=== PATIENT | male | born 1935 | race Caucasian/White ===

== ENCOUNTER 2016-05-29 09:03 | Emergency (ER) | payer MEDICARE, BC, OTHER ==
--- NOTE | 2016-05-29 09:32 | ED ---
General Adult HPI - General Chief complaint: Shortness of Breath Stated complaint: SOB Time Seen by Provider: 05/29/16 09:23 Source: patient, EMS, RN notes reviewed Mode of arrival: EMS Limitations: no limitations - History of Present Illness Initial comments: Patient 81-year-old male significant past medical history for abdominal aneurysms, DVT, PE, hypertension, hyperlipidemia, diabetes, COPD, who presents emergency room today by EMS with a chief complaint of increased left lower flank pain over the last 2 days. Patient does admit to feeling some discomfort yesterday that started increased later in the night. He states he went to bed. He states had similar symptoms in the past usually when he wakes up feels better. States increased pain this morning. Admits to pain located in the left flank coming around to the left lower quadrant. Patient does also admit to feeling short of breath. States he uses oxygen at night. Patient admits to feeling nauseated. He denies any other complaints or symptoms. Patient denies any recent fever, chills, chest pain, numbness or tingling, dysuria or hematuria , constipation or diarrhea, headaches or visual changes, or any other complaints. - Related Data Home Medications Medication Instructions Recorded Confirmed Budesonide [Pulmicort] 0.5 mg INHALATION BID 02/24/14 03/10/14 Insulin Glargine [Lantus] 16 unit SQ HS 02/24/14 03/10/14 Ipratropium Nebulized [Atrovent 0.5 mg INHALATION Q6HR 02/24/14 03/10/14 Nebulized] Latanoprost Ophth [Xalatan 0.005%] 1 drops BOTH EYES HS 02/24/14 03/10/14 [place]-3 Fatty Acids/Fish Oil [Fish 1 each PO DAILY 02/24/14 03/10/14 Oil 1,000 mg Softgel] Tamsulosin [Flomax] 0.4 mg PO DAILY 02/24/14 03/10/14 ALPRAZolam [Xanax] 0.25 mg PO DAILY PRN 03/10/14 03/10/14 Nitroglycerin Sl Tabs [Nitrostat] 0.4 mg SUBLINGUAL Q5M PRN 03/10/14 03/10/14 SILVER sulfADIAZINE CREAM 1 applic TOPICAL BID 03/10/14 03/10/14 [Silvadene Cream] Previous Rx's Medication Instructions Recorded Acetaminophen Tab [Tylenol] 650 mg PO Q6HR PRN #30 tab 03/09/14 Acetaminophen-Codeine 300-30mg 1 each PO Q6HR PRN #120 tab 03/09/14 [Tylenol w/codeine #3] Allopurinol [Zyloprim] 100 mg PO DAILY #30 tab 03/09/14 Aspirin 81 mg PO DAILY #30 chew 03/09/14 Furosemide [Lasix] 40 mg PO 0900,1600 #60 tab 03/09/14 Glimepiride [Amaryl] 2 mg PO DAILY #30 tab 03/09/14 Levofloxacin [Levaquin] 500 mg PO DAILY #7 tab 03/09/14 Metoprolol Tartrate [Lopressor] 50 mg PO BID #30 tab 03/09/14 Potassium Chloride Oral Liquid 20 meq PO DAILY #30 cup 03/09/14 SILVER sulfADIAZINE CREAM 1 applic TOPICAL DAILY #30 gram 03/09/14 [Silvadene Cream] Spironolactone-Hctz 25-25Mg 1 each PO 0900,1600 #30 tab 03/09/14 [Aldactazide 25-25 MG] Allergies Allergy/AdvReac Type Severity Reaction Status Date / Time No Known Allergies Allergy Verified 05/29/16 12:55 Review of Systems ROS Statement: Those systems with pertinent positive or pertinent negative responses have been documented in the HPI. ROS Other: All systems not noted in ROS Statement are negative. Past Medical History Past Medical History: COPD, Diabetes Mellitus, Deep Vein Thrombosis (DVT), Hearing Disorder / Deafness, Hyperlipidemia, Hypertension, Pulmonary Embolus (PE ) Additional Past Medical History / Comment(s): CHF, Abdominal Aneurysm, hard of hearing, empysema History of Any Multi-Drug Resistant Organisms: None Reported Past Surgical History: Appendectomy, Hernia Repair, Tonsillectomy Additional Past Surgical History / Comment(s): cataract, hydrocele, 9 stents in legs, 2 aortic stents Past Anesthesia/Blood Transfusion Reactions: No Reported Reaction Past Psychological History: No Psychological Hx Reported Smoking Status: Former smoker Past Alcohol Use History: None Reported Past Drug Use History: None Reported - Past Family History Mother Family Medical History: Cancer Additional Family Medical History / Comment(s): open heart surgery, CA ovarian and liver, lyme disease General Exam - General Exam Comments Initial Comments: General: The patient is awake and alert, in no distress, and does not appear acutely ill. Eye: Pupils are equal, round and reactive to light, extra-ocular movements are intact. No nystagmus. There is normal conjunctiva bilaterally. No signs of icterus. Ears, nose, mouth and throat: There are moist mucous membranes and no oral lesions. Neck: The neck is supple, there is no tenderness or JVD. Cardiovascular: There is a regular rate and rhythm. No murmur, rub or gallop is appreciated. Respiratory: Lungs are clear to auscultation, respirations are non-labored, breath sounds are equal. No wheezes, stridor, rales, or rhonchi. Gastrointestinal: Abdomen appears distended. Normal bowel sounds. No pulsatile mass. Patient is tender palpation left lower quadrant. No rebound tenderness. No guarding. Musculoskeletal: Normal ROM, no tenderness. Strength 5/5. Sensation intact. Pulses equal bilaterally 2+. Neurological: A&O x 3. CN II-XII intact, There are no obvious motor or sensory deficits. Coordination appears grossly intact. Speech is normal. Skin: Skin is warm and dry and no rashes or lesions are noted. Psychiatric: Cooperative, appropriate mood & affect, normal judgment. Limitations: no limitations Course Vital Signs 05/29/16 05/29/16 05/29/16 09:10 10:16 11:58 Temperature 102.2 F H 97.7 F Pulse Rate 77 74 88 Respiratory 22 22 22 Rate Blood Pressure 124/58 120/60 117/58 O2 Sat by Pulse 97 100 96 Oximetry Medical Decision Making - Medical Decision Making Case discussed in detail with attending physician Dr. Chacko. Patient reexamined at this time shows no signs of distress. Patient hemodynamically stable. Patient still expresses some discomfort left lower quadrant. Currently rates as 6/10. Patient's labs been reviewed. Hemoglobin stable 0.6. Patient's fever improved after Tylenol given here in the emergency room. X-rays reviewed along with CAT scan. Patient's CT shows endovascular leak into the patient's previous abdominal aortic aneurysm. The aneurysm increased in size from 9.7 cm AP from a previous measurement 6.57 years on 05/30/2012. His results were discussed with the patient. He does admit that he was aware of a week. Patient is experiencing abdominal pain in this area. Was discussed with attending physician and also with [facility] where patient did have previous surgery and stent. Patient will be transferred via EMS for further evaluation at [facility]. Accepting physician is Dr. Amin. - Lab Data Result diagrams: 05/29/16 09:32 05/29/16 09:32 Lab Results 05/29/16 05/29/16 05/29/16 Range/Units 09:32 09:32 09:32 WBC 6.9 (3.8-10.6) k/uL RBC 4.09 L (4.30-5.90) m/uL Hgb 12.6 L (13.0-17.5) gm/dL Hct 36.7 L (39.0-53.0) % MCV 89.7 (80.0-100.0) fL MCH 30.8 (25.0-35.0) pg MCHC 34.4 (31.0-37.0) g/dL RDW 16.3 H (11.5-15.5) % Plt Count 143 L (150-450) k/uL Neutrophils % 79 % Lymphocytes % 10 % Monocytes % 7 % Eosinophils % 2 % Basophils % 1 % Neutrophils # 5.4 (1.3-7.7) k/uL Lymphocytes # 0.7 L (1.0-4.8) k/uL Monocytes # 0.5 (0-1.0) k/uL Eosinophils # 0.1 (0-0.7) k/uL Basophils # 0.0 (0-0.2) k/uL Anisocytosis Slight PT (9.0-12.0) sec INR (<1.1) APTT (22.0-30.0) sec Sodium 138 (137-145) mmol/L Potassium 4.0 (3.5-5.1) mmol/L Chloride 95 L (98-107) mmol/L Carbon Dioxide 33 H (22-30) mmol/L Anion Gap 10 mmol/L BUN 17 (9-20) mg/dL Creatinine 1.05 (0.66-1.25) mg/dL Est GFR (MDRD) Af Amer >60 (>60 ml/min/1.73 sqM) Est GFR (MDRD) Non-Af >60 (>60 ml/min/1.73 sqM) Glucose 106 H (74-99) mg/dL Plasma Lactic Acid Darrick (0.7-2.0) mmol/L Calcium 9.2 (8.4-10.2) mg/dL Total Bilirubin 1.0 (0.2-1.3) mg/dL AST 20 (17-59) U/L ALT 31 (21-72) U/L Alkaline Phosphatase 74 (38-126) U/L Total Creatine Kinase 25 L (55-170) U/L CK-MB (CK-2) <0.2 (0.0-2.4) ng/mL CK-MB (CK-2) Rel Index Troponin I <0.012 (0.000-0.034) ng/mL NT-Pro-B Natriuret Pep pg/mL Total Protein 6.5 (6.3-8.2) g/dL Albumin 3.8 (3.5-5.0) g/dL Lipase 38 (23-300) U/L Urine Color Urine Appearance (Clear) Urine pH (5.0-8.0) Ur Specific [place] (1.001-1.035) Urine Protein (Negative) Urine Glucose (UA) (Negative) Urine Ketones (Negative) Urine Blood (Negative) Urine Nitrate (Negative) Urine Bilirubin (Negative) Urine Urobilinogen (<2.0) mg/dL Ur Leukocyte Esterase (Negative) Urine RBC (0-5) /hpf Urine WBC (0-5) /hpf Hyaline Casts (0-2) /lpf Urine Mucus (None) /hpf 05/29/16 05/29/16 05/29/16 Range/Units 09:32 09:32 09:51 WBC (3.8-10.6) k/uL RBC (4.30-5.90) m/uL Hgb (13.0-17.5) gm/dL Hct (39.0-53.0) % MCV (80.0-100.0) fL MCH (25.0-35.0) pg MCHC (31.0-37.0) g/dL RDW (11.5-15.5) % Plt Count (150-450) k/uL Neutrophils % % Lymphocytes % % Monocytes % % Eosinophils % % Basophils % % Neutrophils # (1.3-7.7) k/uL Lymphocytes # (1.0-4.8) k/uL Monocytes # (0-1.0) k/uL Eosinophils # (0-0.7) k/uL Basophils # (0-0.2) k/uL Anisocytosis PT 11.1 (9.0-12.0) sec INR 1.1 (<1.1) APTT 26.2 (22.0-30.0) sec Sodium (137-145) mmol/L Potassium (3.5-5.1) mmol/L Chloride (98-107) mmol/L Carbon Dioxide (22-30) mmol/L Anion Gap mmol/L BUN (9-20) mg/dL Creatinine (0.66-1.25) mg/dL Est GFR (MDRD) Af Amer (>60 ml/min/1.73 sqM) Est GFR (MDRD) Non-Af (>60 ml/min/1.73 sqM) Glucose (74-99) mg/dL Plasma Lactic Acid Darrick 1.2 (0.7-2.0) mmol/L Calcium (8.4-10.2) mg/dL Total Bilirubin (0.2-1.3) mg/dL AST (17-59) U/L ALT (21-72) U/L Alkaline Phosphatase (38-126) U/L Total Creatine Kinase (55-170) U/L CK-MB (CK-2) (0.0-2.4) ng/mL CK-MB (CK-2) Rel Index Troponin I (0.000-0.034) ng/mL NT-Pro-B Natriuret Pep 447 pg/mL Total Protein (6.3-8.2) g/dL Albumin (3.5-5.0) g/dL Lipase (23-300) U/L Urine Color Urine Appearance (Clear) Urine pH (5.0-8.0) Ur Specific [place] (1.001-1.035) Urine Protein (Negative) Urine Glucose (UA) (Negative) Urine Ketones (Negative) Urine Blood (Negative) Urine Nitrate (Negative) Urine Bilirubin (Negative) Urine Urobilinogen (<2.0) mg/dL Ur Leukocyte Esterase (Negative) Urine RBC (0-5) /hpf Urine WBC (0-5) /hpf Hyaline Casts (0-2) /lpf Urine Mucus (None) /hpf 05/29/16 Range/Units 11:55 WBC (3.8-10.6) k/uL RBC (4.30-5.90) m/uL Hgb (13.0-17.5) gm/dL Hct (39.0-53.0) % MCV (80.0-100.0) fL MCH (25.0-35.0) pg MCHC (31.0-37.0) g/dL RDW (11.5-15.5) % Plt Count (150-450) k/uL Neutrophils % % Lymphocytes % % Monocytes % % Eosinophils % % Basophils % % Neutrophils # (1.3-7.7) k/uL Lymphocytes # (1.0-4.8) k/uL Monocytes # (0-1.0) k/uL Eosinophils # (0-0.7) k/uL Basophils # (0-0.2) k/uL Anisocytosis PT (9.0-12.0) sec INR (<1.1) APTT (22.0-30.0) sec Sodium (137-145) mmol/L Potassium (3.5-5.1) mmol/L Chloride (98-107) mmol/L Carbon Dioxide (22-30) mmol/L Anion Gap mmol/L BUN (9-20) mg/dL Creatinine (0.66-1.25) mg/dL Est GFR (MDRD) Af Amer (>60 ml/min/1.73 sqM) Est GFR (MDRD) Non-Af (>60 ml/min/1.73 sqM) Glucose (74-99) mg/dL Plasma Lactic Acid Darrick (0.7-2.0) mmol/L Calcium (8.4-10.2) mg/dL Total Bilirubin (0.2-1.3) mg/dL AST (17-59) U/L ALT (21-72) U/L Alkaline Phosphatase (38-126) U/L Total Creatine Kinase (55-170) U/L CK-MB (CK-2) (0.0-2.4) ng/mL CK-MB (CK-2) Rel Index Troponin I (0.000-0.034) ng/mL NT-Pro-B Natriuret Pep pg/mL Total Protein (6.3-8.2) g/dL Albumin (3.5-5.0) g/dL Lipase (23-300) U/L Urine Color Yellow Urine Appearance Clear (Clear) Urine pH 7.0 (5.0-8.0) Ur Specific [place] 1.047 H (1.001-1.035) Urine Protein Negative (Negative) Urine Glucose (UA) Negative (Negative) Urine Ketones Negative (Negative) Urine Blood Negative (Negative) Urine Nitrate Negative (Negative) Urine Bilirubin Negative (Negative) Urine Urobilinogen <2.0 (<2.0) mg/dL Ur Leukocyte Esterase Negative (Negative) Urine RBC 2 (0-5) /hpf Urine WBC <1 (0-5) /hpf Hyaline Casts 1 (0-2) /lpf Urine Mucus Rare H (None) /hpf Disposition Clinical Impression: Leaking abdominal aortic aneurysm, Fever Disposition: OTHER INSTITUTION NOT DEFINED Condition: Stable Time of Disposition: 13:01 (Transfer via EMS to [facility]) - Out of Hospital Transfer - Req. Specs Out of Hospital Transfer - Requested Specifics: Other Emergency Center ([facility])
[2016-05-29 09:48] LABS: Anisocytosis Slight; Basophils % (A) 1 %; CH 30.2; CHCM 33.8; Eosinophils # (A) 0.1 k/uL (0-0.7); Eosinophils % (A) 2 %; HCT 36.7 % (39.0-53.0); HDW 3.05; HGB 12.6 gm/dL (13.0-17.5); Luc # (Auto) 0.19; Luc % (Auto) 3; Lymphocytes # (A) 0.7 k/uL (1.0-4.8); Lymphocytes % (A) 10 %; MCH 30.8 pg (25.0-35.0); MCHC 34.4 g/dL (31.0-37.0); MCV 89.7 fL (80.0-100.0); Mean Platelet Volume 7.9; Monocytes # (A) 0.5 k/uL (0-1.0); Monocytes % (A) 7 %; Neutrophils # (A) 5.4 k/uL (1.3-7.7); Neutrophils % (A) 79 %; RBC 4.09 m/uL (4.30-5.90); RDW 16.3 % (11.5-15.5); WBC 6.9 k/uL (3.8-10.6); WBC (Perox) 6.96
[2016-05-29 09:56] LABS: ALT 31 U/L (21-72); AST 20 U/L (17-59); Alkaline Phosphatase 74 U/L (38-126); Anion Gap 10 mmol/L; Blood Urea Nitrogen 17 mg/dL (9-20); Calcium 9.2 mg/dL (8.4-10.2); Carbon Dioxide 33 mmol/L (22-30); Chloride 95 mmol/L (98-107); Glucose 106 mg/dL (74-99); Non-African American GFR(MDRD) >60 (>60 ml/min/1.73 sqM); Sodium 138 mmol/L (137-145); Total Protein 6.5 g/dL (6.3-8.2)
[2016-05-29] MEDS: SODIUM CHLORIDE 0.9% 1,000 ML IV STA (09:57)
[2016-05-29] MEDS: ACETAMINOPHEN IV (For NPO) 1,000 MG in SALINE 100 100ML.BAG IVPB STA (09:57)
[2016-05-29 09:59] LABS: INR 1.1 (<1.1); Partial Thromboplastin Time 26.2 sec (22.0-30.0); Prothrombin Time 11.1 sec (9.0-12.0)
[2016-05-29 10:08] LABS: Creatine Kinase 25 U/L (55-170)
--- NOTE | 2016-05-29 10:21 | XR ---
EXAMINATION TYPE: XR chest 2V DATE OF EXAM: 05/29/2016 10:14 AM COMPARISON: Prior chest x-ray 10 March 2014 HISTORY: Shortness of breath, pain in abdomen TECHNIQUE: Frontal and lateral views of the chest are obtained. FINDINGS: There is no there are overlying cardiac leads. Pleural effusion, or pneumothorax seen. Th e cardiac silhouette size is stable. There are prominent lung volumes. Patchy basilar density persis ts. The osseous structures are intact. IMPRESSION: Suspect basilar atelectasis or scarring. There is underlying COPD. Follow-up as indicate d.
[2016-05-29 10:22] LABS: Creatine Kinase MB <0.2 ng/mL (0.0-2.4); Troponin I <0.012 ng/mL (0.000-0.034)
--- NOTE | 2016-05-29 10:25 | XR ---
Abdomen HISTORY: Left-sided abdomen pain Frontal view of the abdomen on 2 images, no comparisons Patient shows aortic stent graft change with embolization of the internal iliac artery on the left. S urgical clips are present in the groins. Heart is thought to be enlarged. Minimal patchy basilar dens ity may reflect atelectasis rather than airspace disease. Surgical clips present in the right upper q uadrant. No evident pneumoperitoneum or bowel obstruction. Suspect scoliosis. IMPRESSION: Postop changes. Cardiomegaly. Probable basilar atelectasis or scarring, correlate to excl ude pneumonia.
[2016-05-29] MEDS: HYDROmorphone 1 MG/ML 1 ML SYRINGE IVP STA (12:03)
[2016-05-29] MEDS: RX INFO: IV CONTRAST WAS GIVEN 1 EACH MISC MISCELLANE PRN (12:03)
--- NOTE | 2016-05-29 12:09 | CT ---
EXAMINATION TYPE: CT ChestAbdPelvis w con DATE OF EXAM: 05/29/2016 11:39 AM INDICATION: LLQ pain with SOB COMPARISON: NONE CT DLP: 4678.6 mGycm CONTRAST: Performed without Oral Contrast and with IV Contrast, patient injected with 100 mL of Omnipaque 300. TECHNIQUE: Axial images at 5 mm thick sections. Reconstructed images in the coronal plane. Delayed images through the kidneys. FINDINGS: CT CHEST: There are several low-density structures within the mid and inferior pole of the bilateral thyroid lo bes. The right lobe thyroid is. Enlarged and may extend into the retrosternal region. No suspicious lung nodules or focal infiltrates are present. Some compressive atelectasis is within the dependent right lung field, Some bronchiectasis in the ri ght lower lobe appear to be present No enlarged mediastinal or hilar adenopathy is evident. The ascending aorta diameter at the level of the main pulmonary artery is 4.1 cm. The main pulmonary artery diameter at the bifurcation is 3.[address] ABDOMEN: Small hiatal hernia is present. Liver: There appear to be several small cysts within the right lobe liver. Spleen: Normal Pancreas: Atrophic Adrenal glands: The adrenal glands are normal. Gallbladder: Surgically absent Kidneys: No masses are evident. No hydronephrosis is present. No cysts are present. Delayed images were obtained through the kidneys, which remain unremarkable. Aorta: Vascular calcification is within the aorta. There is a prior abdominal aortic aneurysm with a n AP dimension of 9.7 cm. This is been repaired with a stent. Contrast is within the stent. However, contrast appears to lie within the distal abdominal aortic aneurysm extending towards the right commo n iliac artery. Extravasation within the aneurysm may be present Inferior vena cava: Normal. CT PELVIS: Loops of bowel within the abdomen and pelvis are normal. Appendix: Not clearly identified Urinary bladder: Normal as visualized Genitourinary structures: Normal prostate Osseous structures: No suspicious lytic or sclerotic lesions are evident. Degenerative changes are wi thin the lumbar spine. IMPRESSIONS: 1. Endovascular leak into the patient's previous abdominal aortic aneurysm. The aneurysm has increase d in size currently measuring 9.7 cm AP from a previous measurement of 6.5 cm on 05/30/2012 2. Suggestion of some compressive atelectasis within the dependent right lung. Some bronchiectasis a ppears to be in the right middle lobe.
[2016-05-29 12:20] LABS: Appearance,Urine Clear (Clear); Bilirubin,Urine Negative (Negative); Glucose,Urine (UA) Negative (Negative); Ketones,Urine Negative (Negative); Leukocyte Esterase,Urine Negative (Negative); Mucus,Urine Rare /hpf; Nitrite,Urine Negative (Negative); Particle Count 622; Protein,Urine Negative (Negative); RBC,Urine 2 /hpf (0-5); UA Billing (MACRO vs. MICRO) CHEM; Urobilinogen,Urine <2.0 mg/dL (<2.0); WBC,Urine <1 /hpf (0-5)
[2016-05-29 12:31] LABS: Specific Gravity,Urine 1.047 (1.001-1.035)
[2016-05-29] MEDS: LEVOFLOXACIN 500MG-D5W PMX 500 MG in DEXTROSE/WATER 1 100ML.BAG IVPB STA (13:26)
[2016-05-29 13:28] VITALS: RESP 20; TEMP 98.3
[2016-05-29 14:03] VITALS: BP 112/59; PULSE 70
== END 2016-05-29 14:03 | disposition other institution (70) ==
LOC: EC 09:03
DX: T82.538A Leakage of other cardiac and vascular devices and implants, initial encounter (principal); I71.4 Abdominal aortic aneurysm, without rupture; R50.9 Fever, unspecified; I11.0 Hypertensive heart disease with heart failure; I50.9 Heart failure, unspecified; J44.9 Chronic obstructive pulmonary disease, unspecified; E11.9 Type 2 diabetes mellitus without complications; E78.5 Hyperlipidemia, unspecified; H91.90 Unspecified hearing loss, unspecified ear; Z99.81 Dependence on supplemental oxygen; Z87.891 Personal history of nicotine dependence; Z86.711 Personal history of pulmonary embolism; Z86.718 Personal history of other venous thrombosis and embolism; Z79.82 Long term (current) use of aspirin; Z79.4 Long term (current) use of insulin; Z79.84 Long term (current) use of oral hypoglycemic drugs; Z79.51 Long term (current) use of inhaled steroids; Z79.899 Other long term (current) drug therapy
CPT/HCPCS: 99285 ×2; 96365 ×2; 96375 ×3; 96361 ×4; 36415; 93005; 83880; 80053; 82550; 82553; 83605; 83690; 84484; 85025; 85610; 85730; 81003; 87040; 71020; 74000; 71260; 74177; J1956; J1170; Q9967; J0131

== ENCOUNTER → 2016-07-16 | Outpatient (CLI) | payer MEDICARE, BC | LOC: RADCTMAIN 13:04 | PROVIDERS: ATTEND Family Medicine | DX: Z01.818 Encounter for other preprocedural examination (principal); I71.4 Abdominal aortic aneurysm, without rupture | CPT/HCPCS: 82565; 84520 ==

== ENCOUNTER → 2016-08-05 | Outpatient (CLI) | payer MEDICARE, BC ==
[2016-08-05 10:36] LABS: Blood Urea Nitrogen 36 mg/dL (9-20); Non-African American GFR(MDRD) 54 (>60 ml/min/1.73 sqM)
--- NOTE | 2016-08-05 13:00 | CT ---
EXAMINATION TYPE: CT angio abdomen pelvis DATE OF EXAM: 08/05/2016 11:58 AM COMPARISON: 05/29/2016 HISTORY: 81-year-old male abdominal aortic aneurysm without rupture. TECHNIQUE: Contiguous axial scanning of the abdomen and pelvis before and after administration of 100 ml Omnipaque 300 IV contrast. Additional long delays were obtained. 3-D reconstructions generated o n a dedicated independent workstation. CT DLP: 6782.6 mGycm Automated exposure control for dose reduction was used. FINDINGS: The heart is upper limits of normal in size without pericardial effusion. Some strandy atelectasis/sc arring at the visualized lung bases. Small hiatal hernia. The couple scattered subcentimeter hypodensities within the liver too small for accurate CT character ization, probable cysts. Cholecystectomy clips are present. Adrenal glands, right kidney, spleen, and atrophic pancreas show no gross abnormal body. There are approximately 3 nonobstructing calculi within the left kidney measuring up to 6 mm. No dilated small bowel, free fluid, or free air. Moderate stool within the right hemicolon. Bladder is partially urine distended. Pelvic phlebolith are noted. No abnormal fluid collection in th e pelvis. Surgical clips are noted in the inguinal regions. Initial noncontrast exam shows heterogeneous density within the patient's long segment abdominal aort ic aneurysm [place] sac with prior aortobiiliac endovascular stent graft present. The density within t he [place] sac measures up to 67 Hounsfield units. On arterial phase imaging, there is evidence of leak along the posterior aspect of the aneurysm likel y from a lumbar artery. The aneurysm measures 10.1 m wide by 9.2 cm AP on coronal and sagittal series respectively. This is i n comparison to 9.9 x 9.5 cm on 05/29/2016. Delayed images show increased heterogeneous density throughout the [place] sac measuring up to 78 Houn sfield units. There has been placement of an additional endovascular stent in the region of the right common iliac artery. The right and left common iliac arteries remain aneurysmal measuring 3.1 and 3.0 cm, respecti vely. This is in comparison to 3.4 and 3.0 cm, respectively on 05/29/2016. There is an additional stabl e aneurysm along the right internal iliac chain measuring 2.3 cm. This seems to be some surgical mate rial at this level and lesser degree of internal opacification within this aneurysm. Bones: Degenerative changes throughout the lumbar spine. IMPRESSION: 1. AORTOBIILIAC ENDOVASCULAR STENT GRAFT REPAIR. THERE IS REDEMONSTRATED ANEURYSM OF THE [place] SAC. THIS MEASURES 10.1 X 9.2 CM VERSUS 9.9 X 9.5 CM, PREVIOUSLY. 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 2. A NEW RIGHT ILIAC ENDOVASCULAR STENT HAS BEEN PLACED. RIGHT COMMON ILIAC ARTERY ANEURYSM MEASURES 3.1 CM VERSUS 3.4 CM, PREVIOUSLY. 3.0 CM ANEURYSM OF THE LEFT COMMON ILIAC ARTERY IS STABLE. 3. ADDITIONAL STABLE 2.3 CM ANEURYSM AT THE RIGHT INTERNAL ILIAC ARTERY SHOWS SOME NEW ADJACENT EMBOL IZATION COILS AND THERE IS LESS INTERNAL CONTRAST OPACIFICATION.
== END | disposition home or self-care (01) ==
LOC: RADCTMAIN 10:01
PROVIDERS: ATTEND Family Medicine
DX: I72.3 Aneurysm of iliac artery (principal); Z95.828 Presence of other vascular implants and grafts
CPT/HCPCS: 82565; 84520; 36415; 74174; Q9967

== ENCOUNTER 2016-08-20 16:01 | Inpatient (IN) | payer MEDICARE, BC ==
[2016-08-20] MEDS ORDERED: SODIUM CHLORIDE 0.9% 1,000 ML IV STA (16:18)
[2016-08-20 16:34] LABS: Anisocytosis Slight; Basophils % (A) 0 %; CH 30.3; CHCM 33.7; Eosinophils # (A) 0.3 k/uL (0-0.7); Eosinophils % (A) 4 %; HCT 32.2 % (39.0-53.0); HDW 3.35; HGB 10.8 gm/dL (13.0-17.5); Luc # (Auto) 0.13; Luc % (Auto) 2; Lymphocytes # (A) 1.2 k/uL (1.0-4.8); Lymphocytes % (A) 17 %; MCH 30.3 pg (25.0-35.0); MCHC 33.6 g/dL (31.0-37.0); MCV 90.1 fL (80.0-100.0); Mean Platelet Volume 7.6; Monocytes # (A) 0.5 k/uL (0-1.0); Monocytes % (A) 6 %; Neutrophils % (A) 71 %; RBC 3.57 m/uL (4.30-5.90); RDW 17.4 % (11.5-15.5); WBC 7.1 k/uL (3.8-10.6); WBC (Perox) 7.53
--- NOTE | 2016-08-20 16:39 | ED ---
Weakness HPI - General Chief complaint: Weakness Stated complaint: weakness Time Seen by Provider: 08/20/16 16:06 Source: EMS, RN notes reviewed, old records reviewed Mode of arrival: EMS Limitations: no limitations - History of Present Illness Initial comments: This is an 81-year-old male presents emergency Department with chief complaint of bilateral leg weakness and fatigue. Patient has a past medical history significant for abdominal aortic aneurysm with repair was repaired on May 2016. Patient reports that afterwards he was discharged to [facility] on the leg. He spent the last 90 days there and was returned home on Wednesday. Patient reports that he was feeling well and Wednesday but then when he was trying to ambulate from his chair to his bed last night he became very weak his legs gave out on him, and he fell and twisted his right leg. Patient states that he has been able to ambulate short distances since the fall. Patient denies any chest pain or shortness of breath. Denies any abdominal pain. Patient states that he has pain in both of his calves whenever he walks. Patient also reports that he is concerned that he has developed a possible bedsore on his right buttock. Patient reports this had one in the past and was starting to heal but now after all these Locations this became worse. - Related Data Home Medications Medication Instructions Recorded Confirmed Acetaminophen-Codeine 300-30mg 1 tab PO BID PRN 05/29/16 08/20/16 [Tylenol w/codeine #3] Ferrous Sulfate [Feosol] 325 mg PO DAILY 05/29/16 08/20/16 Glimepiride [Amaryl] 6 mg PO QAM 05/29/16 08/20/16 Omeprazole 20 mg PO QAM 05/29/16 08/20/16 Spironolactone-Hctz 25-25Mg 1 tab PO BID 05/29/16 08/20/16 [Aldactazide 25-25 MG] Allopurinol [Zyloprim] 300 mg PO HS 08/20/16 08/20/16 Amiodarone [Cordarone] 200 mg PO DAILY 08/20/16 08/20/16 Aspirin 81 mg PO DAILY 08/20/16 08/20/16 Atorvastatin [Lipitor] 20 mg PO HS 08/20/16 08/20/16 Budesonide [Pulmicort] 0.5 mg INHALATION RT-BID 08/20/16 08/20/16 Carvedilol [Coreg] 3.125 mg PO BID 08/20/16 08/20/16 Docusate [Colace] 100 mg PO DAILY PRN 08/20/16 08/20/16 Furosemide [Lasix] 20 mg PO BID 08/20/16 08/20/16 Gabapentin [Neurontin] 300 mg PO HS 08/20/16 08/20/16 Insulin Aspart [NovoLOG] See Protocol SQ AC-TID 08/20/16 08/20/16 Insulin Aspart [NovoLOG] See Protocol SQ HS 08/20/16 08/20/16 Insulin Glargine [Lantus] 16 unit SQ QAM 08/20/16 08/20/16 Ipratropium-Albuterol Nebulize 3 ml INHALATION RT-QID PRN 08/20/16 08/20/16 [Duoneb 0.5 mg-3 mg/3 ml Soln] Lactulose 10 gm PO DAILY PRN 08/20/16 08/20/16 Losartan [Cozaar] 50 mg PO DAILY 08/20/16 08/20/16 Nystatin 100,000Unit/gm Cream 1 applic TOPICAL DAILY 08/20/16 08/20/16 [Mycostatin Cream] [place]-3 Fatty Acids [[place]-3] 3,000 mg PO DAILY 08/20/16 08/20/16 Sennosides [Senna] 8.6 mg PO Q12H 08/20/16 08/20/16 Tamsulosin HCl [Flomax] 0.4 mg PO DAILY 08/20/16 08/20/16 Vitamin E 200 unit PO HS 08/20/16 08/20/16 oxyCODONE HCL [Roxicodone] 5 mg PO Q4H 08/20/16 08/20/16 Allergies Allergy/AdvReac Type Severity Reaction Status Date / Time No Known Allergies Allergy Verified 08/20/16 16:54 Review of Systems ROS Statement: Those systems with pertinent positive or pertinent negative responses have been documented in the HPI. ROS Other: All systems not noted in ROS Statement are negative. Past Medical History Past Medical History: COPD, Diabetes Mellitus, Deep Vein Thrombosis (DVT), Hearing Disorder / Deafness, Hyperlipidemia, Hypertension, Pulmonary Embolus (PE ) Additional Past Medical History / Comment(s): CHF, Abdominal Aneurysm, hard of hearing, empysema History of Any Multi-Drug Resistant Organisms: None Reported Past Surgical History: Appendectomy, Hernia Repair, Tonsillectomy Additional Past Surgical History / Comment(s): cataract, hydrocele, 9 stents in legs, 2 aortic stents Past Anesthesia/Blood Transfusion Reactions: No Reported Reaction Past Psychological History: No Psychological Hx Reported Smoking Status: Former smoker Past Alcohol Use History: None Reported Past Drug Use History: None Reported - Past Family History Mother Family Medical History: Cancer Additional Family Medical History / Comment(s): open heart surgery, CA ovarian and liver, lyme disease General Exam - General Exam Comments Initial Comments: This is a morbidly obese 81-year-old male. Limitations: no limitations General appearance: alert, in no apparent distress Head exam: Present: atraumatic, normocephalic, normal inspection Eye exam: Present: normal appearance, PERRL, EOMI. Absent: scleral icterus, conjunctival injection, periorbital swelling ENT exam: Present: normal exam, mucous membranes moist Neck exam: Present: normal inspection. Absent: tenderness, meningismus, lymphadenopathy Respiratory exam: Present: normal lung sounds bilaterally. Absent: respiratory distress, wheezes, rales, rhonchi, stridor Cardiovascular Exam: Present: regular rate, normal rhythm, normal heart sounds. Absent: systolic murmur, diastolic murmur, rubs, gallop, clicks GI/Abdominal exam: Present: soft, normal bowel sounds, other (Protuberant abdomen, evidence of the incisions from aortoiliac repairs on bilateral inguinal region.). Absent: distended, tenderness, guarding, rebound, rigid Extremities exam: Present: normal inspection, full ROM, normal capillary refill , other (Bilateral lower extremity edema. Patient reports pain with flexion and extension of the right hip, femur and knee. He also has some pain in the left calf as well. ). Absent: tenderness, pedal edema, joint swelling, calf tenderness Back exam: Present: normal inspection Neurological exam: Present: alert, oriented X3, CN II-XII intact Psychiatric exam: Present: normal affect, normal mood Skin exam: Present: warm, dry, intact, normal color. Absent: rash Course Vital Signs 08/20/16 08/20/16 08/20/16 16:09 19:16 19:45 Temperature 98.2 F 97.7 F Pulse Rate 63 77 63 Respiratory 18 18 16 Rate Blood Pressure 110/55 121/56 126/70 O2 Sat by Pulse 98 99 98 Oximetry Medical Decision Making - Medical Decision Making This is an 81-year-old male presents emergency room with bilateral calf pain and weakness for the past 24 hours. Patient has a past medical history significant for aortoiliac repair, hypertension, diabetes. Patient reports that when he was trying to stand up yesterday he became very weak and twisted his right leg. Patient reports he has had calf pain as well as hip pain since then. Patient received Doppler ultrasound and x-rays. X-rays show no evidence of any acute process besides significant edema. Patient's ultrasound showed bilateral DVTs. Patient will be admitted for anticoagulation. Also patient urinalysis does show signs of UTI. We treated with Levaquin. Patient agrees to admission. Discussed this case with Dr. Stapleton, . We'll start the patient on high-dose heparin. Patient is also concerned that he may have a bed sore. Patient is morbidly obese and unable to turn over in the bed at this time, in order to fully visualize a sore. Head to also review patient's CT abdomen and pelvis. There is evidence of aortoiliac and neurovascular stent graft repair. Redemonstrated aneurysm of the new sac measuring 10.1 x 9.27 m % 0.9 x 9 previous injuries. This is not significantly changed but is continue type II endoleak with bleeding into the [place] sac from the lumbar artery. There is also new right iliac vascular stent has been placed. 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 3.0 cm aneurysm and left common iliac artery stable. Stable 2.37 m aneurysm at the right internal iliac artery shows some new adjacent embolization coils and there is less internal contrast opacification. Scuffles with Dr. Stapleton,. At this time a sling and coagulate the patient. Patient will be monitored. - Lab Data Result diagrams: 08/20/16 14:22 08/20/16 14:22 Lab Results 08/20/16 08/20/16 08/20/16 Range/Units 14:22 14:22 14:22 WBC 7.1 (3.8-10.6) k/uL RBC 3.57 L (4.30-5.90) m/uL Hgb 10.8 L (13.0-17.5) gm/dL Hct 32.2 L (39.0-53.0) % MCV 90.1 (80.0-100.0) fL MCH 30.3 (25.0-35.0) pg MCHC 33.6 (31.0-37.0) g/dL RDW 17.4 H (11.5-15.5) % Plt Count 202 (150-450) k/uL Neutrophils % 71 % Lymphocytes % 17 % Monocytes % 6 % Eosinophils % 4 % Basophils % 0 % Neutrophils # 5.0 (1.3-7.7) k/uL Lymphocytes # 1.2 (1.0-4.8) k/uL Monocytes # 0.5 (0-1.0) k/uL Eosinophils # 0.3 (0-0.7) k/uL Basophils # 0.0 (0-0.2) k/uL Anisocytosis Slight PT (9.0-12.0) sec INR (<1.1) APTT (22.0-30.0) sec D-Dimer (<0.60) mg/L FEU Sodium 141 (137-145) mmol/L Potassium 4.3 (3.5-5.1) mmol/L Chloride 100 (98-107) mmol/L Carbon Dioxide 28 (22-30) mmol/L Anion Gap 13 mmol/L BUN 48 H (9-20) mg/dL Creatinine 1.30 H (0.66-1.25) mg/dL Est GFR (MDRD) Af Amer >60 (>60 ml/min/1.73 sqM) Est GFR (MDRD) Non-Af 53 (>60 ml/min/1.73 sqM) Glucose 151 H (74-99) mg/dL Plasma Lactic Acid Darrick (0.7-2.0) mmol/L Calcium 9.5 (8.4-10.2) mg/dL Magnesium 2.0 (1.6-2.3) mg/dL Total Bilirubin 0.4 (0.2-1.3) mg/dL AST 15 L (17-59) U/L ALT 24 (21-72) U/L Alkaline Phosphatase 66 (38-126) U/L Total Creatine Kinase 36 L (55-170) U/L CK-MB (CK-2) 0.4 (0.0-2.4) ng/mL CK-MB (CK-2) Rel Index 1.1 Troponin I <0.012 (0.000-0.034) ng/mL NT-Pro-B Natriuret Pep pg/mL Total Protein 6.4 (6.3-8.2) g/dL Albumin 3.7 (3.5-5.0) g/dL Urine Color Urine Appearance (Clear) Urine pH (5.0-8.0) Ur Specific [place] (1.001-1.035) Urine Protein (Negative) Urine Glucose (UA) (Negative) Urine Ketones (Negative) Urine Blood (Negative) Urine Nitrite (Negative) Urine Bilirubin (Negative) Urine Urobilinogen (<2.0) mg/dL Ur Leukocyte Esterase (Negative) Urine RBC (0-5) /hpf Urine WBC (0-5) /hpf Urine WBC Clumps (None) /hpf Urine Bacteria (None) /hpf Urine Mucus (None) /hpf 08/20/16 08/20/16 08/20/16 Range/Units 14:22 14:22 16:30 WBC (3.8-10.6) k/uL RBC (4.30-5.90) m/uL Hgb (13.0-17.5) gm/dL Hct (39.0-53.0) % MCV (80.0-100.0) fL MCH (25.0-35.0) pg MCHC (31.0-37.0) g/dL RDW (11.5-15.5) % Plt Count (150-450) k/uL Neutrophils % % Lymphocytes % % Monocytes % % Eosinophils % % Basophils % % Neutrophils # (1.3-7.7) k/uL Lymphocytes # (1.0-4.8) k/uL Monocytes # (0-1.0) k/uL Eosinophils # (0-0.7) k/uL Basophils # (0-0.2) k/uL Anisocytosis PT 10.9 (9.0-12.0) sec INR 1.1 (<1.1) APTT 23.7 (22.0-30.0) sec D-Dimer 23.78 H (<0.60) mg/L FEU Sodium (137-145) mmol/L Potassium (3.5-5.1) mmol/L Chloride (98-107) mmol/L Carbon Dioxide (22-30) mmol/L Anion Gap mmol/L BUN (9-20) mg/dL Creatinine (0.66-1.25) mg/dL Est GFR (MDRD) Af Amer (>60 ml/min/1.73 sqM) Est GFR (MDRD) Non-Af (>60 ml/min/1.73 sqM) Glucose (74-99) mg/dL Plasma Lactic Acid Darrick 1.4 (0.7-2.0) mmol/L Calcium (8.4-10.2) mg/dL Magnesium (1.6-2.3) mg/dL Total Bilirubin (0.2-1.3) mg/dL AST (17-59) U/L ALT (21-72) U/L Alkaline Phosphatase (38-126) U/L Total Creatine Kinase (55-170) U/L CK-MB (CK-2) (0.0-2.4) ng/mL CK-MB (CK-2) Rel Index Troponin I (0.000-0.034) ng/mL NT-Pro-B Natriuret Pep 263 pg/mL Total Protein (6.3-8.2) g/dL Albumin (3.5-5.0) g/dL Urine Color Urine Appearance (Clear) Urine pH (5.0-8.0) Ur Specific [place] (1.001-1.035) Urine Protein (Negative) Urine Glucose (UA) (Negative) Urine Ketones (Negative) Urine Blood (Negative) Urine Nitrite (Negative) Urine Bilirubin (Negative) Urine Urobilinogen (<2.0) mg/dL Ur Leukocyte Esterase (Negative) Urine RBC (0-5) /hpf Urine WBC (0-5) /hpf Urine WBC Clumps (None) /hpf Urine Bacteria (None) /hpf Urine Mucus (None) /hpf 08/20/16 Range/Units 16:35 WBC (3.8-10.6) k/uL RBC (4.30-5.90) m/uL Hgb (13.0-17.5) gm/dL Hct (39.0-53.0) % MCV (80.0-100.0) fL MCH (25.0-35.0) pg MCHC (31.0-37.0) g/dL RDW (11.5-15.5) % Plt Count (150-450) k/uL Neutrophils % % Lymphocytes % % Monocytes % % Eosinophils % % Basophils % % Neutrophils # (1.3-7.7) k/uL Lymphocytes # (1.0-4.8) k/uL Monocytes # (0-1.0) k/uL Eosinophils # (0-0.7) k/uL Basophils # (0-0.2) k/uL Anisocytosis PT (9.0-12.0) sec INR (<1.1) APTT (22.0-30.0) sec D-Dimer (<0.60) mg/L FEU Sodium (137-145) mmol/L Potassium (3.5-5.1) mmol/L Chloride (98-107) mmol/L Carbon Dioxide (22-30) mmol/L Anion Gap mmol/L BUN (9-20) mg/dL Creatinine (0.66-1.25) mg/dL Est GFR (MDRD) Af Amer (>60 ml/min/1.73 sqM) Est GFR (MDRD) Non-Af (>60 ml/min/1.73 sqM) Glucose (74-99) mg/dL Plasma Lactic Acid Darrick (0.7-2.0) mmol/L Calcium (8.4-10.2) mg/dL Magnesium (1.6-2.3) mg/dL Total Bilirubin (0.2-1.3) mg/dL AST (17-59) U/L ALT (21-72) U/L Alkaline Phosphatase (38-126) U/L Total Creatine Kinase (55-170) U/L CK-MB (CK-2) (0.0-2.4) ng/mL CK-MB (CK-2) Rel Index Troponin I (0.000-0.034) ng/mL NT-Pro-B Natriuret Pep pg/mL Total Protein (6.3-8.2) g/dL Albumin (3.5-5.0) g/dL Urine Color Yellow Urine Appearance Cloudy (Clear) Urine pH 6.0 (5.0-8.0) Ur Specific [place] 1.012 (1.001-1.035) Urine Protein Negative (Negative) Urine Glucose (UA) Negative (Negative) Urine Ketones Negative (Negative) Urine Blood Negative (Negative) Urine Nitrite Negative (Negative) Urine Bilirubin Negative (Negative) Urine Urobilinogen 2.0 (<2.0) mg/dL Ur Leukocyte Esterase Large H (Negative) Urine RBC 2 (0-5) /hpf Urine WBC >182 H (0-5) /hpf Urine WBC Clumps Rare H (None) /hpf Urine Bacteria Many H (None) /hpf Urine Mucus Rare H (None) /hpf 08/20/16 19:00EKG shows sinus rhythm first-degree AV block. Low voltage QRS. Nonspecific ST-T wave abnormality. Ventricular rate of 61. NC interval 224. QRS duration 80 ms. QT QTc is 416/450 ms. - Radiology Data Radiology results: report reviewed Bilateral Doppler ultrasound shows positive DVT in the right femoral vein, very small veins with a thready flow is visualized. Left leg shows positive for DVT of the left external iliac vein, common femoral vein extending into the greater saphenous vein. Probable Carrasco's cyst visualized in the left popliteal fossa measuring 2.5 x 1.7 x 2.67 m. 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 There is acute DVT in the left leg at the proximal femoral vein. 2.5 cm left popliteal cyst noted. CT [facility]OU[facility]Y chest shows no evidence of PE. Evidence of emphysema changes. Disposition Clinical Impression: DVT, bilateral lower limbs, UTI (urinary tract infection), Weakness of both lower limbs, HTN (hypertension), Diabetes, Obesity, Hyperlipemia Disposition: ADMITTED IP TO THIS [facility] Time of Disposition: 19:41
[2016-08-20 16:47] LABS: ALT 24 U/L (21-72); AST 15 U/L (17-59); Alkaline Phosphatase 66 U/L (38-126); Anion Gap 13 mmol/L; Blood Urea Nitrogen 48 mg/dL (9-20); Calcium 9.5 mg/dL (8.4-10.2); Carbon Dioxide 28 mmol/L (22-30); Chloride 100 mmol/L (98-107); Glucose 151 mg/dL (74-99); Non-African American GFR(MDRD) 53 (>60 ml/min/1.73 sqM); Potassium 4.3 mmol/L (3.5-5.1); Sodium 141 mmol/L (137-145); Total Bilirubin 0.4 mg/dL (0.2-1.3); Total Protein 6.4 g/dL (6.3-8.2)
[2016-08-20 16:50] LABS: Creatine Kinase 36 U/L (55-170)
[2016-08-20 16:52] LABS: INR 1.1 (<1.1); Partial Thromboplastin Time 23.7 sec (22.0-30.0); Prothrombin Time 10.9 sec (9.0-12.0)
[2016-08-20 16:57] LABS: Appearance,Urine Cloudy (Clear); Bacteria,Urine Many /hpf; Bilirubin,Urine Negative (Negative); Glucose,Urine (UA) Negative (Negative); Ketones,Urine Negative (Negative); Leukocyte Esterase,Urine Large (Negative); Mucus,Urine Rare /hpf; Nitrite,Urine Negative (Negative); Particle Count 46372; Protein,Urine Negative (Negative); RBC,Urine 2 /hpf (0-5); Specific Gravity,Urine 1.012 (1.001-1.035); UA Billing (MACRO vs. MICRO) MICRO; WBC,Urine >182 /hpf (0-5)
[2016-08-20 17:03] LABS: Creatine Kinase MB 0.4 ng/mL (0.0-2.4); Troponin I <0.012 ng/mL (0.000-0.034)
--- NOTE | 2016-08-20 17:41 | XR ---
EXAMINATION TYPE: XR chest 2V DATE OF EXAM: 08/20/2016 5:36 PM COMPARISON: 05/29/2016 HISTORY: Weakness TECHNIQUE: Frontal and lateral views of the chest are obtained. FINDINGS: There is coarsening of interstitial markings. There is no gross heart failure. Heart appea rs enlarged. There are no hilar masses. Thoracic aorta is atheromatous. IMPRESSION: Pulmonary fibrotic changes. Cardiomegaly. No heart failure. No change compared to old ex am.
--- NOTE | 2016-08-20 17:42 | XR ---
EXAMINATION TYPE: XR pelvis AP view DATE OF EXAM: 08/20/2016 5:37 PM COMPARISON: NONE HISTORY: Pain TECHNIQUE: Single view FINDINGS: The pelvic ring is intact. There are bilateral iliac artery stents. Proximal femurs appear intact. I see no fracture. Sacroiliac joints are intact. IMPRESSION: No acute abnormality of the pelvis.
--- NOTE | 2016-08-20 17:43 | XR ---
EXAMINATION TYPE: XR femur bilateral DATE OF EXAM: 08/20/2016 5:36 PM COMPARISON: NONE HISTORY: Pain TECHNIQUE: 8 views FINDINGS: I see no fracture nor dislocation. There is moderate narrowing of the knee joint spaces wit h spur formation. Hip joints are intact. IMPRESSION: Moderate osteoarthritis in the knee joints. No fracture.
--- NOTE | 2016-08-20 17:45 | XR ---
EXAMINATION TYPE: XR tibia fibula bilateral DATE OF EXAM: 08/20/2016 5:37 PM COMPARISON: NONE HISTORY: Pain TECHNIQUE: 8 views FINDINGS: There is subcutaneous edema around both lower legs and worse on the right side. There is se nicolette narrowing of the knee joint spaces with spurring of the femoral and tibial condyles. I see no fr acture nor dislocation. IMPRESSION: Subcutaneous edema. Moderately severe osteoarthritis in both knee joints.
[2016-08-20] MEDS: RX INFO: IV CONTRAST WAS GIVEN 1 EACH MISC MISCELLANE PRN ×2 (18:38→19:37)
--- NOTE | 2016-08-20 18:51 | US ---
EXAMINATION TYPE: US venous doppler duplex LE BI DATE OF EXAM: 08/20/2016 6:27 PM COMPARISON: NONE CLINICAL HISTORY: Pain. Patient currently taking blood thinners per patient. Difficult exam due to pa tient body habitus and small right side veins SIDE PERFORMED: Bilateral TECHNIQUE: The lower extremity deep venous system is examined utilizing real time linear array sonog nolberto with graded compression, doppler sonography and color-flow sonography. VESSELS IMAGED: External Iliac Vein (EIV) Common Femoral Vein Deep Femoral Vein Greater Saphenous Vein * Femoral Vein Popliteal Vein Small Saphenous Vein * Proximal Calf Veins (* superficial vessels) Right Leg: Positive dvt in the right femoral vein - Very small veins with some thready flow is visua lized. Possible chronic changes. Left Leg: Positive for dvt in the left EIV, CFV extending into the GSV Probable Carrasco's cyst visualized in left popliteal fossa measuring 2.5 x 1.7 x 2.6 cm IMPRESSION: The exam shows evidence of acute and chronic deep venous thrombosis in the right femoral vein. There is acute deep venous thrombosis in the left leg in the proximal femoral vein. There is a 2.5 cm left-sided popliteal cyst noted..
--- NOTE | 2016-08-20 19:22 | CT ---
EXAMINATION TYPE: CT chest angio for PE DATE OF EXAM: 08/20/2016 7:12 PM COMPARISON: NONE HISTORY: Weakness and SOB. Elevated D-Dimer. CT DLP: 899.8 mGycm Automated exposure control for dose reduction was used. CONTRAST: CT Chest for pulmonary embolism performed with with IV Contrast, patient injected with 70 mL of Visip aque 320. There are 3-D post processed images. FINDINGS: There is mild pulmonary emphysema. There is no evidence of a pulmonary mass. There is subpleural inte rstitial density at the posterior lung bases consistent with scarring and atelectasis. There is no pleural effusion. I see no definite filling defects in the pulmonary arteries. There is no sign of aortic aneurysm or d issection. Thoracic aorta is atheromatous. There is no mediastinal adenopathy. There are no hilar mas ses. There is no pericardial effusion. There are large central pulmonary arteries. The bony thorax ap pears intact. IMPRESSION: No evidence of pulmonary embolism. Mild emphysema. There are changes consistent with pulmonary hypertension. Pulmonary fibrotic changes.
[2016-08-20] MEDS: SODIUM CHLORIDE 0.9% 1,000 ML IV SCH (19:37)
[2016-08-20] MEDS ORDERED: ACETAMINOPHEN TAB 325 MG TAB PO PRN (19:41)
[2016-08-20] MEDS ORDERED: NALOXONE 0.4 MG/ML 1 ML VIAL IV PRN (19:41)
[2016-08-20] MEDS ORDERED: ONDANSETRON 4 MG/2 ML VIAL IVP PRN (19:41)
[2016-08-20] MEDS ORDERED: HEPARIN SODIUM,PORCINE 5,000 UNIT/ML 1 ML VIAL IV PRN (19:51)
[2016-08-20] MEDS ORDERED: HEPARIN SODIUM,PORCINE 10,000 UNIT/ML 1 ML VIAL IV ONE (19:51)
[2016-08-20] MEDS ORDERED: LEVOFLOXACIN 750MG-D5W PMX 750 MG in DEXTROSE/WATER 1 150ML.BAG IVPB STA (19:52)
[2016-08-20] MEDS ORDERED: DOCUSATE 100 MG CAP PO PRN (19:55)
[2016-08-20] MEDS ORDERED: LACTULOSE 20 GM/30 ML CUP PO PRN (19:55)
[2016-08-20 20:23] LABS: Anisocytosis Slight; Basophils % (A) 1 %; CH 30.2; CHCM 32.2; Eosinophils # (A) 0.3 k/uL (0-0.7); Eosinophils % (A) 4 %; HCT 33.2 % (39.0-53.0); HDW 3.14; HGB 10.5 gm/dL (13.0-17.5); Hypochromasia Slight; Luc % (Auto) 3; Lymphocytes # (A) 1.4 k/uL (1.0-4.8); Lymphocytes % (A) 19 %; MCH 29.9 pg (25.0-35.0); MCHC 31.8 g/dL (31.0-37.0); Mean Platelet Volume 7.5; Monocytes # (A) 0.4 k/uL (0-1.0); Monocytes % (A) 6 %; Neutrophils # (A) 4.8 k/uL (1.3-7.7); Neutrophils % (A) 67 %; RBC 3.53 m/uL (4.30-5.90); RDW 17.6 % (11.5-15.5); WBC 7.1 k/uL (3.8-10.6); WBC (Perox) 7.33
[2016-08-20] MEDS: HYDROcodone/APAP 5-325MG 1 EACH TAB PO PRN (20:25)
[2016-08-20] MEDS: HEPARIN SODIUM,PORCINE/D5W PMX 25,000 UNIT in DEXTROSE/WATER 1 500ML.BAG IV SCH (20:26)
[2016-08-20 20:34] LABS: INR 1.1 (<1.1); Partial Thromboplastin Time 23.5 sec (22.0-30.0); Prothrombin Time 11.1 sec (9.0-12.0)
[2016-08-20] MEDS: BUDESONIDE 0.5 MG/2 ML NEBU INHALATION SCH (20:59)
[2016-08-20 21:33] LABS: Glucose,Whole Blood 106 mg/dL (75-99)
[2016-08-21] MEDS: HYDROmorphone 1 MG/ML 1 ML SYRINGE IV PRN ×2 (00:07→04:42)
[2016-08-21] MEDS: ATORVASTATIN 20 MG TAB PO SCH ×2 (00:12→21:06)
[2016-08-21] MEDS: SPIRONOLACTONE-HCTZ 25-25MG 1 EACH TAB PO SCH ×3 (00:12→21:06)
[2016-08-21] MEDS: CARVEDILOL 3.125 MG TAB PO SCH ×3 (00:13→17:07)
[2016-08-21] MEDS: ALLOPURINOL 300 MG TAB PO SCH ×2 (00:13→21:06)
[2016-08-21] MEDS: SENNOSIDES 8.6 MG TAB PO SCH ×3 (00:13→21:05)
[2016-08-21] MEDS: GABAPENTIN 300 MG CAP PO SCH ×2 (00:13→21:06)
[2016-08-21] MEDS: FUROSEMIDE 20 MG TAB PO SCH ×3 (00:13→17:08)
[2016-08-21] MEDS: VITAMIN E (DL,TOCOPHERYL ACET) 400 UNIT CAP PO SCH ×2 (00:13→21:06)
[2016-08-21] MEDS: HYDROcodone/APAP 5-325MG 1 EACH TAB PO PRN ×2 (02:34→08:09)
[2016-08-21 03:13] LABS: Anisocytosis Slight; Basophils % (A) 1 %; CH 30.5; CHCM 33.4; Eosinophils # (A) 0.4 k/uL (0-0.7); Eosinophils % (A) 5 %; HCT 30.5 % (39.0-53.0); HDW 3.29; Luc # (Auto) 0.15; Luc % (Auto) 2; Lymphocytes # (A) 1.3 k/uL (1.0-4.8); Lymphocytes % (A) 19 %; MCH 30.2 pg (25.0-35.0); MCHC 32.9 g/dL (31.0-37.0); MCV 91.8 fL (80.0-100.0); Mean Platelet Volume 6.4; Monocytes # (A) 0.4 k/uL (0-1.0); Monocytes % (A) 5 %; Neutrophils # (A) 4.7 k/uL (1.3-7.7); Neutrophils % (A) 68 %; RBC 3.32 m/uL (4.30-5.90); RDW 17.5 % (11.5-15.5); WBC 6.9 k/uL (3.8-10.6); WBC (Perox) 7.16
[2016-08-21] MEDS: SODIUM CHLORIDE 0.9% 1,000 ML IV SCH ×2 (06:35→17:08)
[2016-08-21 07:18] LABS: Glucose,Whole Blood 112 mg/dL (75-99)
[2016-08-21 07:50] LABS: Hemoglobin A1C 6.1 % (4.2-6.1)
[2016-08-21] MEDS: AMIODARONE 200 MG TAB PO SCH (08:10)
[2016-08-21] MEDS: TAMSULOSIN 0.4 MG CAP.ER.24H PO SCH (08:11)
[2016-08-21] MEDS: GLIMEPIRIDE 2 MG TAB PO SCH (08:11)
[2016-08-21] MEDS: NYSTATIN 100,000UNIT/GM CREAM 30 GM TUBE TOPICAL SCH (08:12)
[2016-08-21] MEDS: LOSARTAN 50 MG TAB PO SCH (08:12)
[2016-08-21] MEDS: INSULIN LISPRO (humaLOG) 300 UNIT/3 ML VIAL SQ SCH ×4 (08:12→21:08)
[2016-08-21] MEDS: BUDESONIDE 0.5 MG/2 ML NEBU INHALATION SCH ×2 (08:43→21:03)
[2016-08-21] MEDS ORDERED: OMEGA PO SCH (09:00)
[2016-08-21] MEDS ORDERED: PANTOPRAZOLE 40 MG/10 ML VIAL IV SCH (09:00)
[2016-08-21] MEDS ORDERED: FATTY ACIDS PO SCH (09:00)
[2016-08-21] MEDS ORDERED: NON-FORMULARY DRUG (Omeprazole [Omeprazole] 20 MG) PO SCH (09:00)
[2016-08-21] MEDS: HEPARIN SODIUM,PORCINE/D5W PMX 25,000 UNIT in DEXTROSE/WATER 1 500ML.BAG IV SCH ×3 (09:48→17:46)
[2016-08-21] MEDS ORDERED: Acetaminophen-Codeine 300-30mg TAB PO PRN (11:25)
[2016-08-21 12:02] LABS: Glucose,Whole Blood 145 mg/dL (75-99)
[2016-08-21] MEDS: INSULIN GLARGINE 100 UNIT/ML 10 ML VIAL SQ SCH (12:22)
[2016-08-21] MEDS: FERROUS SULFATE 325 MG TAB PO SCH (12:23)
[2016-08-21 16:19] LABS: C Reactive Protein 27.1 mg/L (<10.0); Uric Acid 5.5 mg/dL (3.5-8.5)
[2016-08-21 16:57] LABS: Glucose,Whole Blood 122 mg/dL (75-99)
--- NOTE | 2016-08-21 18:09 | HP ---
DATE OF ADMISSION: 08/20/2016 DATE OF SERVICE: 08/21/2016 CHIEF COMPLAINT: Bilateral weakness and pain and swelling of the legs. HISTORY OF PRESENT ILLNESS: This 81-year-old gentleman with a past medical history of multiple medical problems, including COPD, diabetes mellitus, history of DVT, history of hypertension, hyperlipidemia, pulmonary embolus, history of CHF, history of appendectomy, history of nicotine dependence, being followed by Dr. Shar Piper in the outpatient setting, has a history of abdominal aortic aneurysm repair in May 2016. The patient was discharged to [facility] on the [place]. The patient had ( ) days of rehab in [facility] and the patient went home, but the patient was complaining of weakness as well as swelling of the legs, and the legs gave out on him and the patient twisted his right leg. Patient complained of knee pain and came to [facility], was admitted for further evaluation and treatment. Ultrasound of the leg was done on admission. Venous Doppler showed evidence of acute and chronic DVT in the right femoral vein, and acute DVT in the left leg in the proximal femoral vein was also noted. The patient was started on IV heparin. The patient also had multiple x-rays at this point. They showed subcutaneous edema and no evidence of any fractures, including the pelvis, femur and tibia, fibula at this time. Moderate DJD was also noted. There is no history of any fever, rigor or chills, no history of headache, loss of consciousness, seizures. PAST MEDICAL HISTORY: 1. Recent aortic aneurysm repair. 2. History of COPD. 3. Diabetes mellitus. 4. History of DVT. 5. Hypertension. 6. Hyperlipidemia. 7. History of pulmonary embolism. 8. History of CHF. 9. Aortic aneurysm. 10. Hard of hearing. HOME MEDICATIONS: 1. Lactulose 10 grams p.o. daily p.r.n. 2. Zyloprim 300 mg at bedtime. 3. Flomax 0.4 daily. 4. Neurontin 300 mg at bedtime. 5. Pulmicort 0.5 mg b.i.d. 6. Lipitor 20 mg p.o. at bedtime. 7. Vitamin E 200 mg at bedtime. 8. Lantus 16 units subcutaneously each morning. 9. Lasix 20 mg b.i.d. 10. Oxycodone 5 mg p.o. q.4 p.r.n. 11. Senna 8.6 p.o. b.i.d. 12. Amaryl 6 mg each morning. 13. DuoNeb q.i.d. and p.r.n. 14. NovoLog at bedtime. 15. [place]-3, 3000 daily. 16. NovoLog before meals t.i.d. 17. Iron sulfate 325 mg daily. 18. Colace 100 mg p.o. daily p.r.n. 19. Aspirin 81 mg daily. 20. Nystatin 1 application daily. 21. Cordarone 200 mg p.o. daily. 22. Omeprazole 20 mg each morning. 23. Cozaar 50 mg p.o. daily. 24. Coreg 3.125 mg p.o. b.i.d. 25. Tylenol with codeine 1 tablet p.o. b.i.d. p.r.n. 26. Aldactazide 25/25 p.o. b.i.d. ALLERGIES: NONE. FAMILY HISTORY: History of CAD, CABG, history of ovarian and liver carcinoma, history of lyme disease. SOCIAL HISTORY: Previous history of smoking. No history of alcohol intake. REVIEW OF SYSTEMS: ENT: Diminishing hearing. Diminished vision. CARDIOVASCULAR: No angina. RESPIRATORY: No cough, hemoptysis. GI: As mentioned earlier. : No dysuria, retention. NERVOUS SYSTEM: No numbness or weakness. ALLERGY/IMMUNOLOGY: No asthma, hayfever. MUSCULOSKELETAL: As mentioned earlier. HEMATOLOGY/ONCOLOGY: As mentioned earlier. ENDOCRINE: As mentioned earlier. CONSTITUTIONAL: As mentioned earlier. DERMATOLOGY: Negative. RHEUMATOLOGY: As mentioned earlier. PSYCHIATRY: As mentioned earlier. PHYSICAL EXAMINATION: Patient is alert and oriented x3. Pulse is 55, blood pressure 97/47, respiration 22, temperature 97.6, pulse ox 98% on 2 L. HEENT: Conjunctivae normal. Oral mucosa moist. NECK: No jugular venous distention. No carotid bruit. No lymph node enlargement. CARDIOVASCULAR SYSTEM: S1, S2 muffled. No S3. No S4. RESPIRATORY SYSTEM: Breath sounds diminished at the bases. A few scattered rhonchi and crackles. Expiratory wheezing also present. ABDOMEN: Soft, non-tender. No mass palpable. LEGS: Bilateral leg edema. NERVOUS SYSTEM: Higher functions as mentioned earlier. Moves all 4 limbs. No focal motor or sensory deficit. LYMPHATICS: No lymph node palpable in neck, axillae or groin. SKIN: No ulcer, rash, bleeding. Labs at this time show WBC 6.9, hemoglobin 10. Glucose is 112. APTT 174. ASSESSMENT: 1. Bilateral leg swelling and bilateral acute deep venous thrombosis. 2. History of deep venous thrombosis. 3. History of pulmonary embolism. 4. Increased creatinine with possible chronic kidney disease, stage III. 5. Gait dysfunction. 6. Acute urinary tract infection, present on admission. 7. Anemia, normocytic; anemia of chronic disease. 8. Increased D-dimer at 23.7 without any evidence of pulmonary embolism on the CT scan. 9. Left-sided popliteal cyst measuring 2.5 cm. 10. Bilateral joint pains, possibly osteoarthritis. 11. History of chronic obstructive pulmonary disease. 12. Diabetes mellitus, type 2. 13. History of hyperlipidemia. 14. History of hypertension. 15. History of deep venous thrombosis. 16. Hard of hearing. 17. History of congestive heart failure, ejection fraction unknown. 18. History of abdominal aneurysm repair. 19. History of cataracts. 20. History of hydrocele. 21. History of peripheral vascular disease and 9 stents. 22. Remote history of nicotine dependence. 23. FULL CODE. RECOMMENDATIONS AND DISCUSSION: In this 81-year-old gentleman who presented with multiple complex medical issues, we will monitor the patient closely, continue the current medications, continue with symptomatic treatment. I recommend resuming the home medications. Empiric antibiotics. IV heparin. Otherwise, closely monitor. The patient might be a candidate for lifelong anticoagulation. Otherwise, will obtain a PT and OT evaluation. I would also recommend a serum uric acid. Also symptomatic treatment, cultures. Repeat labs. Guarded prognosis because of multiple complex medical issues. Further recommendations to follow. Discussed with the patient, who understands and agrees. A copy of this dictation is being forwarded to Dr. Shar Piper, who is the primary physician.
[2016-08-21 20:45] LABS: Glucose,Whole Blood 132 mg/dL (75-99)
[2016-08-21] MEDS: IPRATROPIUM-ALBUTEROL 3 ML NEB INHALATION PRN (21:03)
[2016-08-21] MEDS: MELATONIN 3 MG TABLET PO SCH (21:06)
[2016-08-22] MEDS: HEPARIN SODIUM,PORCINE/D5W PMX 25,000 UNIT in DEXTROSE/WATER 1 500ML.BAG IV SCH ×2 (00:15→17:03)
[2016-08-22] MEDS: SODIUM CHLORIDE 0.9% 1,000 ML IV SCH ×3 (01:07→20:32)
[2016-08-22] MEDS: IPRATROPIUM-ALBUTEROL 3 ML NEB INHALATION PRN ×4 (07:25→18:58)
[2016-08-22] MEDS: BUDESONIDE 0.5 MG/2 ML NEBU INHALATION SCH ×2 (07:25→18:58)
[2016-08-22 07:34] LABS: Glucose,Whole Blood 102 mg/dL (75-99)
[2016-08-22 07:59] LABS: Anisocytosis Slight; Basophils % (A) 1 %; CH 30.6; CHCM 33.2; Eosinophils # (A) 0.3 k/uL (0-0.7); Eosinophils % (A) 4 %; HDW 3.29; Luc # (Auto) 0.15; Luc % (Auto) 2; Lymphocytes # (A) 1.4 k/uL (1.0-4.8); Lymphocytes % (A) 21 %; MCH 29.9 pg (25.0-35.0); MCHC 32.3 g/dL (31.0-37.0); MCV 92.5 fL (80.0-100.0); Mean Platelet Volume 6.5; Monocytes # (A) 0.4 k/uL (0-1.0); Monocytes % (A) 6 %; Neutrophils # (A) 4.2 k/uL (1.3-7.7); Neutrophils % (A) 66 %; RBC 3.36 m/uL (4.30-5.90); RDW 17.5 % (11.5-15.5); WBC 6.4 k/uL (3.8-10.6); WBC (Perox) 6.62
[2016-08-22] MEDS: INSULIN LISPRO (humaLOG) 300 UNIT/3 ML VIAL SQ SCH ×4 (08:11→21:01)
[2016-08-22] MEDS: CARVEDILOL 3.125 MG TAB PO SCH ×2 (08:11→17:30)
[2016-08-22] MEDS: PANTOPRAZOLE 40 MG TABLET PO SCH (08:11)
[2016-08-22] MEDS: GLIMEPIRIDE 2 MG TAB PO SCH (08:11)
[2016-08-22] MEDS: SENNOSIDES 8.6 MG TAB PO SCH ×2 (08:14→20:31)
[2016-08-22] MEDS: ASPIRIN 81 MG CHEW PO SCH (08:14)
[2016-08-22] MEDS: AMIODARONE 200 MG TAB PO SCH (08:14)
[2016-08-22] MEDS: LOSARTAN 50 MG TAB PO SCH (08:15)
[2016-08-22] MEDS: TAMSULOSIN 0.4 MG CAP.ER.24H PO SCH (08:15)
[2016-08-22] MEDS: FUROSEMIDE 20 MG TAB PO SCH ×2 (08:15→17:30)
[2016-08-22] MEDS: SPIRONOLACTONE-HCTZ 25-25MG 1 EACH TAB PO SCH ×2 (08:15→21:47)
[2016-08-22] MEDS: INSULIN GLARGINE 100 UNIT/ML 10 ML VIAL SQ SCH (08:18)
[2016-08-22 08:36] LABS: Anion Gap 13 mmol/L; Blood Urea Nitrogen 31 mg/dL (9-20); Calcium 8.7 mg/dL (8.4-10.2); Carbon Dioxide 25 mmol/L (22-30); Chloride 100 mmol/L (98-107); Glucose 90 mg/dL (74-99); Non-African American GFR(MDRD) >60 (>60 ml/min/1.73 sqM); Potassium 3.9 mmol/L (3.5-5.1); Sodium 138 mmol/L (137-145)
[2016-08-22] MEDS: NYSTATIN 100,000UNIT/GM CREAM 30 GM TUBE TOPICAL SCH (09:30)
[2016-08-22 12:01] LABS: Glucose,Whole Blood 156 mg/dL (75-99)
[2016-08-22] MEDS: FERROUS SULFATE 325 MG TAB PO SCH (12:42)
[2016-08-22 17:24] LABS: Glucose,Whole Blood 121 mg/dL (75-99)
[2016-08-22] MEDS: ATORVASTATIN 20 MG TAB PO SCH (20:31)
[2016-08-22] MEDS: MELATONIN 3 MG TABLET PO SCH (20:31)
[2016-08-22] MEDS: GABAPENTIN 300 MG CAP PO SCH (20:31)
[2016-08-22] MEDS: ALLOPURINOL 300 MG TAB PO SCH (20:31)
[2016-08-22] MEDS: VITAMIN E (DL,TOCOPHERYL ACET) 400 UNIT CAP PO SCH (20:31)
[2016-08-22 20:48] LABS: Glucose,Whole Blood 121 mg/dL (75-99)
[2016-08-23] MEDS: HEPARIN SODIUM,PORCINE/D5W PMX 25,000 UNIT in DEXTROSE/WATER 1 500ML.BAG IV SCH ×2 (02:36→17:25)
[2016-08-23] MEDS: IPRATROPIUM-ALBUTEROL 3 ML NEB INHALATION PRN ×3 (07:27→19:19)
[2016-08-23] MEDS: BUDESONIDE 0.5 MG/2 ML NEBU INHALATION SCH ×2 (07:27→19:19)
[2016-08-23 07:34] LABS: Glucose,Whole Blood 125 mg/dL (75-99)
[2016-08-23] MEDS: INSULIN LISPRO (humaLOG) 300 UNIT/3 ML VIAL SQ SCH ×4 (08:01→21:01)
[2016-08-23 08:05] LABS: Anisocytosis Slight; Basophils # (A) 0.1 k/uL (0-0.2); Basophils % (A) 1 %; CH 30.2; Eosinophils # (A) 0.3 k/uL (0-0.7); Eosinophils % (A) 5 %; HCT 31.2 % (39.0-53.0); HDW 3.06; HGB 9.9 gm/dL (13.0-17.5); Hypochromasia Slight; Luc # (Auto) 0.15; Luc % (Auto) 3; Lymphocytes # (A) 1.5 k/uL (1.0-4.8); Lymphocytes % (A) 24 %; MCHC 31.6 g/dL (31.0-37.0); MCV 94.8 fL (80.0-100.0); Macrocytosis Slight; Mean Platelet Volume 6.8; Monocytes # (A) 0.4 k/uL (0-1.0); Monocytes % (A) 6 %; Neutrophils # (A) 3.8 k/uL (1.3-7.7); Neutrophils % (A) 62 %; RBC 3.29 m/uL (4.30-5.90); RDW 17.9 % (11.5-15.5); WBC 6.2 k/uL (3.8-10.6); WBC (Perox) 5.96
[2016-08-23] MEDS: TAMSULOSIN 0.4 MG CAP.ER.24H PO SCH (08:12)
[2016-08-23] MEDS: SENNOSIDES 8.6 MG TAB PO SCH ×2 (08:14→20:46)
[2016-08-23] MEDS: FUROSEMIDE 20 MG TAB PO SCH ×2 (08:14→16:08)
[2016-08-23] MEDS: ASPIRIN 81 MG CHEW PO SCH (08:14)
[2016-08-23] MEDS: GLIMEPIRIDE 2 MG TAB PO SCH (08:15)
[2016-08-23] MEDS: SPIRONOLACTONE-HCTZ 25-25MG 1 EACH TAB PO SCH ×2 (08:15→20:47)
[2016-08-23] MEDS: PANTOPRAZOLE 40 MG TABLET PO SCH (08:16)
[2016-08-23] MEDS: AMIODARONE 200 MG TAB PO SCH (08:16)
[2016-08-23] MEDS: SODIUM CHLORIDE 0.9% 1,000 ML IV SCH ×3 (08:18→20:47)
[2016-08-23] MEDS: INSULIN GLARGINE 100 UNIT/ML 10 ML VIAL SQ SCH (08:19)
[2016-08-23] MEDS: CARVEDILOL 3.125 MG TAB PO SCH ×2 (08:25→18:41)
[2016-08-23] MEDS: NYSTATIN 100,000UNIT/GM CREAM 30 GM TUBE TOPICAL SCH (08:28)
[2016-08-23] MEDS: LOSARTAN 50 MG TAB PO SCH (08:28)
--- NOTE | 2016-08-23 09:43 | PN ---
DATE OF SERVICE: 08/22/2016 This 81-year-old gentleman admitted with bilateral leg deep venous thrombosis is on IV heparin at this time. The patient also had history of previous deep venous thrombosis as well. The patient also had no elevated D-dimer but no evidence of pulmonary embolism on CT scan was noted. The patient has bilateral leg swelling. PTT has been monitored. PAST MEDICAL HISTORY: Reviewed. REVIEW OF SYSTEMS: CARDIOVASCULAR: No angina. RESPIRATORY: As mentioned earlier. RESPIRATORY: As mentioned earlier. GI: No nausea, numbness. TOURS CAPTAIN: No numbness. Generalized weakness present. Current medications are reviewed and include: 1. Tylenol 650 every 6 p.r.n. 2. Tylenol #3. 3. [place] 5 mg. 4. Zyloprim. 5. Xanax 0.25 t.i.d. 6. Cordarone 200 mg p.o. daily. 7. Aspirin 81 mg daily. 8. Lipitor 20 mg every 6. 9. Pulmicort 0.5 b.i.d. 10. Colace 100 mg daily. 12. Amaryl. 13. Heparin subcu. 14. Dilaudid. 15. Lantus. 16. Humalog. 17. Cozaar. 18. Narcan. 19. Mycostatin. 20. OxyIR. 21. Protonix. 22. Senokot. 23. Flomax. 24. Vitamin E. PHYSICAL EXAMINATION: Patient is alert and oriented x3. Pulse is 62, blood pressure 106/70, respirations 20, temperature 96.6, pulse ox 100% on 2 L. HEENT: Conjunctivae normal. NECK: No JVD. CARDIOVASCULAR: S1 and S2 muffled. LUNGS: Bilateral scattered rhonchi and crackles. ABDOMEN: Soft, nontender. EXTREMITIES: Bilateral leg edema. Slight leg swelling. NERVOUS SYSTEM: Higher function as mentioned. Moves all extremities. Mild diffuse weakness. LYMPHATIC: No lymph nodes palpable in neck, axillae, groin. SKIN: No rashes. LABS: WBC 6, hemoglobin 10. ASSESSMENT: 1. Acute bilateral leg swelling with bilateral deep venous thromboses. 2. Heparin monitoring. 3. History of deep venous thrombosis of the legs. 4. Pulmonary embolism. 5. Increased creatinine with possible chronic kidney disease, stage III. 6. Gait dysfunction and weakness. 7. Acute urinary tract infection, present on admission. 8. Anemia, normocytic anemia of chronic disease. 9. Increased d-dimer 23.7, without any evidence of pulmonary embolism on CT scan. 10. Left-sided 2.5 cm. 11. Bilateral joint pains, possible degenerative joint disease. 12. Chronic obstructive pulmonary disease. 13. Diabetes mellitus type 2. 14. History of hyperlipidemia. 15. History of hypertension. 16. History of deep venous thrombosis. 17. Hard of hearing. 18. History of congestive heart failure with ejection fraction unknown. 19. History of abdominal aneurysm repair. 20. History of cataracts. 21. History of hydrocele. 22. History of peripheral vascular disease and stents. 23. Remote history of nicotine dependence. 24. Full code. RECOMMENDATIONS: I would recommend continuing with the current medications, continue to monitor and symptomatic treatment. At this time I would recommend continue with current medications, continue with IV heparin. Monitor PT-INR closely. Continue with antibiotics for UTI. Cultures are negative so far. I would also recommend PT/OT evaluation because the patient is complaining of significant weakness and increased ambulation. Otherwise if the patient is significantly weak EC rehab may be an option. Otherwise we will monitor PT/INR and we will also check with counseling case manager with possible Xarelto coverage, which was already discussed with counseling case manager. Prescription given. Further recommendations to follow. Guarded prognosis. MTDD
[2016-08-23] MEDS: FERROUS SULFATE 325 MG TAB PO SCH (12:12)
[2016-08-23 12:36] LABS: Glucose,Whole Blood 134 mg/dL (75-99)
[2016-08-23 17:17] LABS: Glucose,Whole Blood 135 mg/dL (75-99)
[2016-08-23] MEDS: WARFARIN 10 MG TAB PO SCH (18:41)
[2016-08-23 18:57] LABS: INR 1.2 (<1.1); Prothrombin Time 11.7 sec (9.0-12.0)
[2016-08-23] MEDS: ATORVASTATIN 20 MG TAB PO SCH (20:46)
[2016-08-23] MEDS: GABAPENTIN 300 MG CAP PO SCH (20:46)
[2016-08-23] MEDS: ALLOPURINOL 300 MG TAB PO SCH (20:46)
[2016-08-23] MEDS: VITAMIN E (DL,TOCOPHERYL ACET) 400 UNIT CAP PO SCH (20:47)
[2016-08-23] MEDS: MELATONIN 3 MG TABLET PO SCH (20:47)
[2016-08-23] MEDS: ALPRAZolam 0.25 MG TAB PO PRN (20:47)
[2016-08-23 20:57] LABS: Glucose,Whole Blood 181 mg/dL (75-99)
[2016-08-24] MEDS: HEPARIN SODIUM,PORCINE/D5W PMX 25,000 UNIT in DEXTROSE/WATER 1 500ML.BAG IV SCH ×4 (05:33→21:12)
[2016-08-24] MEDS: IPRATROPIUM-ALBUTEROL 3 ML NEB INHALATION PRN ×4 (07:02→20:01)
[2016-08-24] MEDS: BUDESONIDE 0.5 MG/2 ML NEBU INHALATION SCH ×2 (07:02→20:01)
[2016-08-24 07:21] LABS: Anisocytosis Slight; Basophils % (A) 1 %; CH 30.3; CHCM 32.3; Eosinophils # (A) 0.3 k/uL (0-0.7); Eosinophils % (A) 5 %; HCT 31.3 % (39.0-53.0); HDW 3.07; Hypochromasia Slight; Luc # (Auto) 0.13; Luc % (Auto) 2; Lymphocytes # (A) 1.4 k/uL (1.0-4.8); Lymphocytes % (A) 22 %; MCHC 31.8 g/dL (31.0-37.0); MCV 94.3 fL (80.0-100.0); Mean Platelet Volume 6.9; Monocytes # (A) 0.4 k/uL (0-1.0); Monocytes % (A) 6 %; Neutrophils # (A) 4.1 k/uL (1.3-7.7); Neutrophils % (A) 65 %; RBC 3.32 m/uL (4.30-5.90); RDW 17.7 % (11.5-15.5); WBC 6.3 k/uL (3.8-10.6); WBC (Perox) 6.34
[2016-08-24 07:26] LABS: INR 1.1 (<1.1); Partial Thromboplastin Time 47.9 sec (22.0-30.0)
[2016-08-24 07:30] LABS: Glucose,Whole Blood 127 mg/dL (75-99)
[2016-08-24] MEDS: INSULIN GLARGINE 100 UNIT/ML 10 ML VIAL SQ SCH (08:58)
[2016-08-24] MEDS: SPIRONOLACTONE-HCTZ 25-25MG 1 EACH TAB PO SCH ×2 (08:59→21:12)
[2016-08-24] MEDS: FUROSEMIDE 20 MG TAB PO SCH ×2 (08:59→17:28)
[2016-08-24] MEDS: CARVEDILOL 3.125 MG TAB PO SCH ×2 (08:59→17:29)
[2016-08-24] MEDS: AMIODARONE 200 MG TAB PO SCH (09:00)
[2016-08-24] MEDS: ASPIRIN 81 MG CHEW PO SCH (09:00)
[2016-08-24] MEDS: PANTOPRAZOLE 40 MG TABLET PO SCH (09:00)
[2016-08-24] MEDS: SENNOSIDES 8.6 MG TAB PO SCH ×2 (09:00→21:11)
[2016-08-24] MEDS: LOSARTAN 50 MG TAB PO SCH (09:00)
[2016-08-24] MEDS: GLIMEPIRIDE 2 MG TAB PO SCH (09:00)
[2016-08-24] MEDS: TAMSULOSIN 0.4 MG CAP.ER.24H PO SCH (09:00)
[2016-08-24] MEDS: INSULIN LISPRO (humaLOG) 300 UNIT/3 ML VIAL SQ SCH ×4 (09:01→21:04)
[2016-08-24] MEDS: NYSTATIN 100,000UNIT/GM CREAM 30 GM TUBE TOPICAL SCH (09:02)
--- NOTE | 2016-08-24 09:33 | PN ---
DATE OF SERVICE: 08/23/2016 This 81-year-old gentleman who was admitted with acute bilateral leg swelling with DVTs and IV heparin. The patient apparently does not have Xarelto coverage. The patient also complains of some gait difficulties also. No chest pain. No palpitations. No fever. On exam, alert and oriented x3. Pulse 60, blood pressure 130/70. Respiratory rate 16. Temperature 97.7, pulse ox is 98% on room air. HEENT: Conjunctivae normal. NECK: No jugular venous distention. CARDIOVASCULAR: S1, S2 muffled. RESPIRATORY: Breath sounds diminished at the bases. A few scattered rhonchi. No crackles. ABDOMEN: Soft and nontender. LEGS: Leg edema. LABS: WBC 6.9, hemoglobin 9.9. ASSESSMENT: 1. Acute bilateral leg swelling and bilateral deep venous thrombosis. 2. Heparin monitoring. 3. Coumadin monitoring. 4. History of deep venous thrombosis of the legs. 5. History of pulmonary embolism. 6. Increased creatinine with possible chronic kidney disease Stage 3. 7. Gait dysfunction and weakness. 8. Urinary tract infection, present on admission. 9. Anemia, normocytic anemia of chronic disease. 10. Left right-sided popliteal cyst measuring 2.5 cm. 11. Increased d-dimer 22.7 without any evidence of pulmonary embolism currently on the CAT scan. 12. Bilateral joint pains, possibly degenerative joint disease. 13. Chronic obstructive pulmonary disease. 14. Diabetes mellitus type 2. 15. History of hyperlipidemia. 16. History of hypertension. 17. History of deep venous thrombosis. 18. History of hard of hearing. 19. History of congestive heart failure with ejection fraction unknown. 20. History of abdominal aneurysm repair. 21. History of cataracts. 22. History of hydrocele. 23. History of peripheral vascular disease. 25. Remote history of nicotine dependence. 26. FULL CODE. RECOMMENDATIONS AND DISCUSSION: Continue current medications. Because of the lack of Xarelto coverage at this time, I recommend Coumadin 10 mg today and monitor PT, INR closely. Otherwise, PT, OT evaluation. Possible ECF rehab. Guarded prognosis. The patient did finish ECF recently. Prognosis is guarded. Further recommendations to follow. MTDD
[2016-08-24] MEDS: FERROUS SULFATE 325 MG TAB PO SCH (12:02)
[2016-08-24 12:04] LABS: Glucose,Whole Blood 137 mg/dL (75-99)
--- NOTE | 2016-08-24 16:41 | PN ---
DATE OF SERVICE: 08/24/2016 This 81-year-old gentleman who was admitted with bilateral leg swelling and DVT is being closely monitored. No chest pain. No palpitation. No fever. Patient is on IV heparin. On exam, alert and oriented x3. Pulse is 60, blood pressure 114/56, respirations 16, temperature 97.3. Pulse is 100% on room air. HEENT: Conjunctivae normal. NECK: No jugular venous distention. CARDIOVASCULAR: S1 and S2. RESPIRATORY: Breath sounds diminished at the bases. No rhonchi, no crackles. ABDOMEN: Soft. LEGS: Bilateral leg edema. NERVOUS SYSTEM: No focal deficits. LABS: Hemoglobin 10, INR is 1.1. ASSESSMENT: 1. Acute bilateral leg swelling and bilateral deep venous thrombosis. 2. Heparin monitoring. 3. Coumadin monitoring. 4. History of deep venous thrombosis of the legs previously. 5. History of pulmonary embolus. 6. Increased creatinine with possible chronic kidney disease, stage III. 7. Gait dysfunction and weakness. 8. Urinary tract infection present on admission. 9. Anemia, normocytic anemia of chronic disease. 10. Left-sided popliteal cyst measuring 2.5 cm. 11. Increased d-dimer 22.7 without any evidence of pulmonary embolism, currently on the CAT scan. 12. Bilateral joint pains, possibly degenerative joint disease. 13. History of chronic obstructive pulmonary disease. 14. Diabetes mellitus, type 2. 15. History of hyperlipidemia. 16. History of hypertension. 17. History of deep venous thrombosis. 18. History of hard of hearing. 19. Congestive heart failure with ejection fraction unknown. 20. History of abdominal aortic aneurysm repair. 21. History of cataracts. 22. History of hydrocele. 23. Peripheral vascular disease. 24. Remote history of nicotine dependence. 25. FULL CODE. RECOMMENDATIONS AND DISCUSSION: I recommend to continue the current medications, continue monitoring and symptomatic treatment. Otherwise at this time I recommend Coumadin 10 mg today. PT, OT evaluation. Apparently the patient has exhausted rehab days at this time according to the family. The patient is weak as well, but we will continue to monitor and monitor PT and INR closely. Increase ambulation. Otherwise, currently continue with IV heparin. Guarded prognosis because of multiple complex medical issues. Further recommendations to follow. See orders for further details.
[2016-08-24 17:05] LABS: Glucose,Whole Blood 172 mg/dL (75-99)
[2016-08-24] MEDS: SODIUM CHLORIDE 0.9% 1,000 ML IV SCH ×2 (17:27→23:05)
[2016-08-24] MEDS: WARFARIN 10 MG TAB PO SCH (17:29)
[2016-08-24] MEDS ORDERED: WARFARIN 10 MG TAB PO ONE (18:00)
[2016-08-24 20:33] LABS: Glucose,Whole Blood 119 mg/dL (75-99)
[2016-08-24] MEDS: ALPRAZolam 0.25 MG TAB PO PRN (21:11)
[2016-08-24] MEDS: ALLOPURINOL 300 MG TAB PO SCH (21:11)
[2016-08-24] MEDS: MELATONIN 3 MG TABLET PO SCH (21:12)
[2016-08-24] MEDS: VITAMIN E (DL,TOCOPHERYL ACET) 400 UNIT CAP PO SCH (21:12)
[2016-08-24] MEDS: ATORVASTATIN 20 MG TAB PO SCH (21:12)
[2016-08-24] MEDS: GABAPENTIN 300 MG CAP PO SCH (21:12)
[2016-08-25 07:27] LABS: Glucose,Whole Blood 104 mg/dL (75-99)
[2016-08-25] MEDS: IPRATROPIUM-ALBUTEROL 3 ML NEB INHALATION PRN ×4 (07:49→19:39)
[2016-08-25] MEDS: BUDESONIDE 0.5 MG/2 ML NEBU INHALATION SCH ×2 (07:50→19:39)
[2016-08-25 07:57] LABS: Anisocytosis Slight; Basophils % (A) 1 %; CH 30.2; CHCM 32.2; Eosinophils # (A) 0.3 k/uL (0-0.7); Eosinophils % (A) 5 %; HCT 33.1 % (39.0-53.0); HDW 3.06; HGB 10.7 gm/dL (13.0-17.5); Hypochromasia Slight; Luc # (Auto) 0.13; Luc % (Auto) 2; Lymphocytes # (A) 1.4 k/uL (1.0-4.8); Lymphocytes % (A) 21 %; MCH 30.5 pg (25.0-35.0); MCHC 32.3 g/dL (31.0-37.0); MCV 94.5 fL (80.0-100.0); Macrocytosis Slight; Mean Platelet Volume 6.8; Monocytes # (A) 0.4 k/uL (0-1.0); Monocytes % (A) 6 %; Neutrophils # (A) 4.2 k/uL (1.3-7.7); Neutrophils % (A) 66 %; RDW 17.9 % (11.5-15.5); WBC 6.4 k/uL (3.8-10.6); WBC (Perox) 6.55
[2016-08-25 08:10] LABS: INR 1.2 (<1.1); Partial Thromboplastin Time 48.1 sec (22.0-30.0); Prothrombin Time 11.6 sec (9.0-12.0)
[2016-08-25 08:32] LABS: Anion Gap 10 mmol/L; Blood Urea Nitrogen 25 mg/dL (9-20); Calcium 9.4 mg/dL (8.4-10.2); Carbon Dioxide 27 mmol/L (22-30); Chloride 102 mmol/L (98-107); Glucose 101 mg/dL (74-99); Non-African American GFR(MDRD) >60 (>60 ml/min/1.73 sqM); Potassium 4.4 mmol/L (3.5-5.1); Sodium 139 mmol/L (137-145)
[2016-08-25] MEDS: FUROSEMIDE 20 MG TAB PO SCH ×2 (09:51→16:24)
[2016-08-25] MEDS: TAMSULOSIN 0.4 MG CAP.ER.24H PO SCH (09:51)
[2016-08-25] MEDS: SPIRONOLACTONE-HCTZ 25-25MG 1 EACH TAB PO SCH ×2 (09:51→20:30)
[2016-08-25] MEDS: GLIMEPIRIDE 2 MG TAB PO SCH (09:52)
[2016-08-25] MEDS: PANTOPRAZOLE 40 MG TABLET PO SCH (09:52)
[2016-08-25] MEDS: SENNOSIDES 8.6 MG TAB PO SCH ×2 (09:53→20:29)
[2016-08-25] MEDS: ASPIRIN 81 MG CHEW PO SCH (09:53)
[2016-08-25] MEDS: INSULIN GLARGINE 100 UNIT/ML 10 ML VIAL SQ SCH (09:53)
[2016-08-25] MEDS: AMIODARONE 200 MG TAB PO SCH (09:53)
[2016-08-25] MEDS: CARVEDILOL 3.125 MG TAB PO SCH ×2 (09:54→16:24)
[2016-08-25] MEDS: LOSARTAN 50 MG TAB PO SCH (09:55)
[2016-08-25] MEDS: NYSTATIN 100,000UNIT/GM CREAM 30 GM TUBE TOPICAL SCH (09:58)
[2016-08-25] MEDS: HEPARIN SODIUM,PORCINE/D5W PMX 25,000 UNIT in DEXTROSE/WATER 1 500ML.BAG IV SCH ×2 (10:07→20:31)
[2016-08-25] MEDS: INSULIN LISPRO (humaLOG) 300 UNIT/3 ML VIAL SQ SCH ×4 (10:09→21:50)
[2016-08-25 11:49] LABS: Glucose,Whole Blood 130 mg/dL (75-99)
[2016-08-25] MEDS: FERROUS SULFATE 325 MG TAB PO SCH (12:36)
[2016-08-25] MEDS: SODIUM CHLORIDE 0.9% 1,000 ML IV SCH ×3 (12:41→20:26)
[2016-08-25] MEDS: WARFARIN 10 MG TAB PO SCH (17:16)
[2016-08-25 17:19] LABS: Glucose,Whole Blood 143 mg/dL (75-99)
--- NOTE | 2016-08-25 17:31 | PN ---
DATE OF SERVICE: 08/25/2016 This 81-year-old gentleman admitted with acute bilateral leg swelling, and DVT and INR . Patient is on IV heparin. No chest pain. No palpitations. No fever. On exam, alert and oriented times three. Pulse 74, blood pressure 120/69, respiration 18, temperature 98 degrees, pulse ox 100% on 2 L. HEENT: Conjunctivae normal. NECK: No jugular venous distention. CARDIOVASCULAR: S1, S2 muffled. RESPIRATORY: Breath sounds diminished at the bases. A few scattered rhonchi. ABDOMEN: Soft, nontender. No mass palpable. Legs: Bilateral leg edema, improving. Central nervous system: No focal deficit. LABS: WBC 6.9, Hemoglobin is 10.7. Cultures are negative. ASSESSMENT: 1. Acute bilateral leg swelling and bilateral acute deep venous thrombosis. 2. Heparin monitoring. 3. Coumadin monitoring. 4. History of deep venous thrombosis of the legs previously. 5. History of pulmonary embolism. 6. Increased creatinine with possible chronic kidney disease, stage III. 7. Gait dysfunction and weakness. 8. Urinary tract infection present on admission. 9. Anemia, normocytic anemia of chronic disease. 10. Left side popliteal cyst as mentioned earlier 2.5 cm. 11. Increased d-dimer 22.7 without evidence of pulmonary embolism currently on the current CT scan. 12. Bilateral joint pains, possibly degenerative joint disease. 13. History of chronic obstructive pulmonary disease. 14. Diabetes, type II. 15. History of hyperlipidemia. 16. History of hypertension. 17. History of deep venous thrombosis. 18. History of hard of hearing. 19. Congestive heart failure with ejection fraction unknown. 20. History of abdominal aortic aneurysm repair. 21. History of cataracts. 23. Peripheral vascular disease. 24. Remote history of nicotine dependence. 25. FULL CODE. Recommendations and discussion: Continue current medications. Continue symptomatic treatment. Otherwise, at this time, I would recommend to continue with IV heparin. Coumadin mg a day. Monitor PT, OT. Increase ambulation. Guarded prognosis because of multiple complex medical issues. Further recommendations to follow. MTDD
[2016-08-25] MEDS ORDERED: WARFARIN 5 MG TAB PO ONE (18:00)
--- NOTE | 2016-08-25 19:15 | P.PN ---
Subjective Date of service 08/25/2016. Progress note being dictated for Dr. Escobar. Interval history: This is an 81-year-old gentleman admitted with acute bilateral DVT, acute UTI and multiple other medical issues. Maintained on IV heparin and Coumadin. INR currently 1.2. Continues on Rocephin. Denies chest pain, palpitations. Afebrile Objective - Vital Signs Vital signs: Vital Signs Temp 97.7 F 08/25/16 15:00 Pulse 68 08/25/16 15:22 Resp 18 08/25/16 15:00 BP 117/51 08/25/16 15:00 Pulse Ox 99 08/25/16 15:00 Intake & Output 08/25/16 08/25/16 08/26/16 06:59 18:59 06:59 Intake Total 363.33 500 Output Total 1175 Balance -811.67 500 Weight 150.5 kg 150.5 kg Intake: Intake, IV Titration 363.33 500 Amount Heparin Sodium,Porcine/ 363.33 500 D5w Pmx 25,000 unit In Dextrose/Water 1 500ml. bag @ 14.87 UNITS/KG/HR 46 mls/hr IV .[id number] [facility] Rx#:[id number] Output: Urine 1175 Other: Voiding Method Urinal # Voids 2 3 - Exam PHYSICAL EXAM: VITAL SIGNS: [As above] GENERAL: [Sitting up in bed, no acute distress] HEENT: [Pupils equal conjunctiva normal. No conjunctival pallor] NECK: [Supple, no JVD] RESPIRATORY EFFORT:[ Normal] LUNGS: [Bilateral bases diminished, occasional scattered rhonchi] CARDIOVASCULAR[ regular S1 and S2, positive edema] GI: [Abdomen soft, nontender, positive bowel sounds.] PSYCH: [Alert and oriented -3, mood and affect normal.] SKIN: [Bilateral lower extremity edema improving] NEURO: [No focal deficits] - Labs CBC & Chem 7: 08/25/16 07:34 08/25/16 07:34 Labs: Abnormal Lab Results - Last 24 Hours (Table) 08/24/16 08/25/16 08/25/16 Range/Units 20:30 07:04 07:34 RBC 3.50 L (4.30-5.90) m/uL Hgb 10.7 L (13.0-17.5) gm/dL Hct 33.1 L (39.0-53.0) % RDW 17.9 H (11.5-15.5) % APTT (22.0-30.0) sec BUN (9-20) mg/dL Glucose (74-99) mg/dL POC Glucose (mg/dL) 119 H 104 H (75-99) mg/dL 08/25/16 08/25/16 08/25/16 Range/Units 07:34 07:34 11:45 RBC (4.30-5.90) m/uL Hgb (13.0-17.5) gm/dL Hct (39.0-53.0) % RDW (11.5-15.5) % APTT 48.1 H (22.0-30.0) sec BUN 25 H (9-20) mg/dL Glucose 101 H (74-99) mg/dL POC Glucose (mg/dL) 130 H (75-99) mg/dL 08/25/16 Range/Units 17:09 RBC (4.30-5.90) m/uL Hgb (13.0-17.5) gm/dL Hct (39.0-53.0) % RDW (11.5-15.5) % APTT (22.0-30.0) sec BUN (9-20) mg/dL Glucose (74-99) mg/dL POC Glucose (mg/dL) 143 H (75-99) mg/dL Assessment and Plan Plan: 1. Acute bilateral DVT with acute bilateral leg swelling improving, in a patient with history of PE and DVT of the legs 2. [ Heparin monitoring]. 3. [ Coumadin monitoring]. 4. [ Acute on chronic renal failure, stage III]. 5. [ Gait dysfunction, degenerative joint disease with generalized weakness]. 6. [ Acute UTI, present on admission]. 7. [ Anemia, normocytic of chronic disease]. 8. Left-sided popliteal cyst 2.5 cm 9. Increased d-dimer without evidence of pulmonary embolism per chest CTA 10. COPD, no acute exacerbation 11. Diabetes mellitus type 2 12. Hyperlipidemia 13. Hypertension 14. Hard of hearing 15. Chronic congestive heart., EF currently unknown 16. Abdominal aortic aneurysm repair, history of 17. Peripheral vascular disease 18. Remote history of nicotine dependence Plan: Continue on current medication regime ,monitoring and symptomatic treatment. Coumadin 15 mg tonight. Case management verifying outpatient Xarelto Rx coverage. Evaluated by physical therapy and subacute rehab recommended at discharge. Discharge planning in progress for tomorrow. The impression and plan of care has been dictated as directed. : I performed a H&P examination of this patient and discussed the same with the dictator. I agree with the dictator's note. Any additional findings/opinions/ etc. will be noted.
[2016-08-25] MEDS: MELATONIN 3 MG TABLET PO SCH (20:29)
[2016-08-25] MEDS: ATORVASTATIN 20 MG TAB PO SCH (20:29)
[2016-08-25] MEDS: ALLOPURINOL 300 MG TAB PO SCH (20:29)
[2016-08-25] MEDS: GABAPENTIN 300 MG CAP PO SCH (20:29)
[2016-08-25] MEDS: VITAMIN E (DL,TOCOPHERYL ACET) 400 UNIT CAP PO SCH (20:30)
[2016-08-25 21:35] LABS: Glucose,Whole Blood 122 mg/dL (75-99)
[2016-08-26] MEDS: HEPARIN SODIUM,PORCINE/D5W PMX 25,000 UNIT in DEXTROSE/WATER 1 500ML.BAG IV SCH ×2 (00:25→10:57)
[2016-08-26] MEDS: SODIUM CHLORIDE 0.9% 1,000 ML IV SCH ×2 (04:00→09:36)
[2016-08-26] MEDS: IPRATROPIUM-ALBUTEROL 3 ML NEB INHALATION PRN ×2 (07:08→11:26)
[2016-08-26] MEDS: BUDESONIDE 0.5 MG/2 ML NEBU INHALATION SCH (07:08)
[2016-08-26 07:35] LABS: Glucose,Whole Blood 123 mg/dL (75-99)
[2016-08-26 07:49] VITALS: RESP 19
[2016-08-26] MEDS: INSULIN LISPRO (humaLOG) 300 UNIT/3 ML VIAL SQ SCH ×2 (08:08→13:08)
[2016-08-26] MEDS: AMIODARONE 200 MG TAB PO SCH (08:16)
[2016-08-26] MEDS: SENNOSIDES 8.6 MG TAB PO SCH (08:16)
[2016-08-26] MEDS: LOSARTAN 50 MG TAB PO SCH (08:16)
[2016-08-26] MEDS: INSULIN GLARGINE 100 UNIT/ML 10 ML VIAL SQ SCH (08:16)
[2016-08-26] MEDS: PANTOPRAZOLE 40 MG TABLET PO SCH (08:16)
[2016-08-26] MEDS: CARVEDILOL 3.125 MG TAB PO SCH ×2 (08:16→15:53)
[2016-08-26] MEDS: TAMSULOSIN 0.4 MG CAP.ER.24H PO SCH (08:17)
[2016-08-26] MEDS: SPIRONOLACTONE-HCTZ 25-25MG 1 EACH TAB PO SCH (08:17)
[2016-08-26] MEDS: GLIMEPIRIDE 2 MG TAB PO SCH (08:17)
[2016-08-26] MEDS: NYSTATIN 100,000UNIT/GM CREAM 30 GM TUBE TOPICAL SCH (08:17)
[2016-08-26] MEDS: ASPIRIN 81 MG CHEW PO SCH (08:18)
[2016-08-26 08:35] LABS: Anisocytosis Slight; Basophils % (A) 1 %; CH 30.1; CHCM 32.1; Eosinophils # (A) 0.4 k/uL (0-0.7); Eosinophils % (A) 5 %; HCT 34.3 % (39.0-53.0); HDW 3.01; Hypochromasia Slight; Luc # (Auto) 0.18; Luc % (Auto) 3; Lymphocytes # (A) 1.7 k/uL (1.0-4.8); Lymphocytes % (A) 22 %; MCH 30.2 pg (25.0-35.0); MCV 94.3 fL (80.0-100.0); Mean Platelet Volume 7.1; Monocytes # (A) 0.4 k/uL (0-1.0); Monocytes % (A) 6 %; Neutrophils # (A) 4.7 k/uL (1.3-7.7); Neutrophils % (A) 64 %; RBC 3.63 m/uL (4.30-5.90); RDW 17.9 % (11.5-15.5); WBC 7.4 k/uL (3.8-10.6)
[2016-08-26 08:45] LABS: INR 1.4 (<1.1); Partial Thromboplastin Time 39.9 sec (22.0-30.0); Prothrombin Time 13.8 sec (9.0-12.0)
[2016-08-26 08:59] LABS: Anion Gap 10 mmol/L; Blood Urea Nitrogen 29 mg/dL (9-20); Calcium 9.5 mg/dL (8.4-10.2); Carbon Dioxide 26 mmol/L (22-30); Chloride 102 mmol/L (98-107); Glucose 96 mg/dL (74-99); Non-African American GFR(MDRD) >60 (>60 ml/min/1.73 sqM); Potassium 4.7 mmol/L (3.5-5.1); Sodium 138 mmol/L (137-145)
[2016-08-26] MEDS: FUROSEMIDE 20 MG TAB PO SCH ×2 (09:55→15:52)
[2016-08-26] MEDS: FERROUS SULFATE 325 MG TAB PO SCH (11:35)
[2016-08-26 12:48] LABS: Glucose,Whole Blood 119 mg/dL (75-99)
[2016-08-26 14:22] VITALS: BP 121/57; PULSE 69; TEMP 97.1
[2016-08-26] MEDS: WARFARIN 10 MG TAB PO SCH (15:53)
--- NOTE | 2016-08-26 18:32 | P.DS ---
Providers Date of admission: 08/20/16 19:41 Expected date of discharge: 08/26/16 Attending physician: Shar Chao Primary care physician: Shar Piper Hospital Course: Final Diagnoses: 1. Acute bilateral DVT with acute bilateral leg swelling improving, in a patient with history of PE and DVT of the legs 2. [ Heparin monitoring]. 3. [ Coumadin monitoring]. 4. [ Acute on chronic renal failure, stage III]. 5. [ Gait dysfunction, degenerative joint disease with generalized weakness]. 6. [ Acute UTI, present on admission]. 7. [ Anemia, normocytic of chronic disease]. 8. Left-sided popliteal cyst 2.5 cm 9. Increased d-dimer without evidence of pulmonary embolism per chest CTA 10. COPD, no acute exacerbation 11. Diabetes mellitus type 2 12. Hyperlipidemia 13. Hypertension 14. Hard of hearing 15. Chronic congestive heart., EF currently unknown 16. Abdominal aortic aneurysm repair, history of 17. Peripheral vascular disease 18. Remote history of nicotine dependence Hospital course:This is an 81-year-old gentleman admitted with acute bilateral DVT, acute UTI and multiple other medical issues. Venous Doppler showed evidence of acute and chronic DVT in the right femoral vein and left proximal femoral vein. Multiple x-rays reporting subcutaneous edema and no evidence of any fractures including the pelvis, femur and tibia, fibula. Anticoagulated on IV heparin and Coumadin. High co-pay with Xarelto. Patient will therefore be discharged on both Lovenox and Coumadin. INR 1.4. Received Rocephin for acute UTI. Significant clinical improvement. Per case management, patient does not have any further days left for ECF rehab. Patient will be discharged home with home care in a stable condition with guarded prognosis. The impression and plan of care has been dictated as directed as a scribe. : I performed a H&P examination of this patient and discussed the same with the dictator. I agree with the dictator's note. Any additional findings/opinions/ etc. will be noted. Patient Condition at Discharge: Stable Plan - Discharge Summary New Discharge Prescriptions: New Enoxaparin [Lovenox] 160 mg SQ Q12H #20 syringe Warfarin Sodium [Coumadin] 2 mg PO DAILY@1800 #7 tablet Warfarin Sodium [Coumadin] 5 mg PO DAILY@1800 #7 tablet Cefuroxime Axetil [Ceftin] 500 mg PO BID #10 tab Continue Acetaminophen-Codeine 300-30mg [Tylenol w/codeine #3] 1 tab PO BID PRN PRN Reason: Pain Spironolactone-Hctz 25-25Mg [Aldactazide 25-25 MG] 1 tab PO BID Omeprazole 20 mg PO QAM Ferrous Sulfate [Iron (65 MG Elemental)] 325 mg PO DAILY Glimepiride [Amaryl] 6 mg PO QAM Allopurinol [Zyloprim] 300 mg PO HS Tamsulosin HCl [Flomax] 0.4 mg PO DAILY Gabapentin [Neurontin] 300 mg PO HS Budesonide [Pulmicort] 0.5 mg INHALATION RT-BID Atorvastatin [Lipitor] 20 mg PO HS Vitamin E 200 unit PO HS Insulin Glargine [Lantus] 16 unit SQ QAM Furosemide [Lasix] 20 mg PO BID oxyCODONE HCL [Roxicodone] 5 mg PO Q4H Sennosides [Senna] 8.6 mg PO Q12H Ipratropium-Albuterol Nebulize [Duoneb 0.5 mg-3 mg/3 ml Soln] 3 ml INHALATION RT-QID PRN PRN Reason: Shortness Of Breath Insulin Aspart [NovoLOG] See Protocol SQ HS [place]-3 Fatty Acids [[place]-3] 3,000 mg PO DAILY Insulin Aspart [NovoLOG] See Protocol SQ AC-TID Docusate [Colace] 100 mg PO DAILY PRN PRN Reason: Constipation Aspirin 81 mg PO DAILY Nystatin 100,000Unit/gm Cream [Mycostatin Cream] 1 applic TOPICAL DAILY Amiodarone [Cordarone] 200 mg PO DAILY Losartan [Cozaar] 50 mg PO DAILY Carvedilol [Coreg] 3.125 mg PO BID Lactulose 10 gm PO DAILY PRN PRN Reason: Constipation Discharge Medication List Acetaminophen-Codeine 300-30mg [Tylenol w/codeine #3] 1 tab PO BID PRN 05/29/16 [History] Ferrous Sulfate [Iron (65 MG Elemental)] 325 mg PO DAILY 05/29/16 [History] Glimepiride [Amaryl] 6 mg PO QAM 05/29/16 [History] Omeprazole 20 mg PO QAM 05/29/16 [History] Spironolactone-Hctz 25-25Mg [Aldactazide 25-25 MG] 1 tab PO BID 05/29/16 [ History] Allopurinol [Zyloprim] 300 mg PO HS 08/20/16 [History] Amiodarone [Cordarone] 200 mg PO DAILY 08/20/16 [History] Aspirin 81 mg PO DAILY 08/20/16 [History] Atorvastatin [Lipitor] 20 mg PO HS 08/20/16 [History] Budesonide [Pulmicort] 0.5 mg INHALATION RT-BID 08/20/16 [History] Carvedilol [Coreg] 3.125 mg PO BID 08/20/16 [History] Docusate [Colace] 100 mg PO DAILY PRN 08/20/16 [History] Furosemide [Lasix] 20 mg PO BID 08/20/16 [History] Gabapentin [Neurontin] 300 mg PO HS 08/20/16 [History] Insulin Aspart [NovoLOG] See Protocol SQ AC-TID 08/20/16 [History] Insulin Aspart [NovoLOG] See Protocol SQ HS 08/20/16 [History] Insulin Glargine [Lantus] 16 unit SQ QAM 08/20/16 [History] Ipratropium-Albuterol Nebulize [Duoneb 0.5 mg-3 mg/3 ml Soln] 3 ml INHALATION RT -QID PRN 08/20/16 [History] Lactulose 10 gm PO DAILY PRN 08/20/16 [History] Losartan [Cozaar] 50 mg PO DAILY 08/20/16 [History] Nystatin 100,000Unit/gm Cream [Mycostatin Cream] 1 applic TOPICAL DAILY [History] [place]-3 Fatty Acids [[place]-3] 3,000 mg PO DAILY 08/20/16 [History] Sennosides [Senna] 8.6 mg PO Q12H 08/20/16 [History] Tamsulosin HCl [Flomax] 0.4 mg PO DAILY 08/20/16 [History] Vitamin E 200 unit PO HS 08/20/16 [History] oxyCODONE HCL [Roxicodone] 5 mg PO Q4H 08/20/16 [History] Cefuroxime Axetil [Ceftin] 500 mg PO BID #10 tab 08/26/16 [Rx] Enoxaparin [Lovenox] 160 mg SQ Q12H #20 syringe 08/26/16 [Rx] Warfarin Sodium [Coumadin] 2 mg PO DAILY@1800 #7 tablet 08/26/16 [Rx] Warfarin Sodium [Coumadin] 5 mg PO DAILY@1800 #7 tablet 08/26/16 [Rx] Follow up Appointment(s)/Referral(s): Shar Piper MD [Primary Care Provider] - 08/28/16 8:40 am [facility], [NON-STAFF] - As Needed Ambulatory/Diagnostic Orders: Prothrombin Time INR [LAB.AMB] Time Frame: 3 Days, Location: Determined By Patient Patient Instructions/Handouts: Heart Failure (DC), Deep Venous Thrombosis (DC) , Type 2 Diabetes in Adults (DC) Activity/Diet/Wound Care/Special Instructions: Cardiac, diabetic diet. Diabetic/CHF folder given. Discharge Disposition: HOME WITH HOME HEALTH SERVICES
== END 2016-08-26 17:15 | disposition home health service (06) | DRG 300 ==
LOC: EC 16:01 → 4MS4W 19:41
PROVIDERS: ADMIT Family Medicine; ATTEND Family Medicine
DX: I82.413 Acute embolism and thrombosis of femoral vein, bilateral (principal); I13.0 Hypertensive heart and chronic kidney disease with heart failure and stage 1 through stage 4 chronic kidney disease, or unspecified chronic kidney disease; N17.9 Acute kidney failure, unspecified; E11.22 Type 2 diabetes mellitus with diabetic chronic kidney disease; I50.9 Heart failure, unspecified; N39.0 Urinary tract infection, site not specified; D63.8 Anemia in other chronic diseases classified elsewhere; I82.511 Chronic embolism and thrombosis of right femoral vein; E66.01 Morbid (severe) obesity due to excess calories; E78.5 Hyperlipidemia, unspecified; H91.90 Unspecified hearing loss, unspecified ear; I73.9 Peripheral vascular disease, unspecified; J44.9 Chronic obstructive pulmonary disease, unspecified; M19.90 Unspecified osteoarthritis, unspecified site; M71.20 Synovial cyst of popliteal space [Baker], unspecified knee; N18.3 Chronic kidney disease, stage 3 (moderate); Z79.4 Long term (current) use of insulin; Z79.82 Long term (current) use of aspirin; Z79.84 Long term (current) use of oral hypoglycemic drugs; Z79.899 Other long term (current) drug therapy; Z82.49 Family history of ischemic heart disease and other diseases of the circulatory system; Z86.711 Personal history of pulmonary embolism; Z86.79 Personal history of other diseases of the circulatory system; Z87.891 Personal history of nicotine dependence; Z95.820 Peripheral vascular angioplasty status with implants and grafts
CPT/HCPCS: 36415; 71020; 71275; 72170; 80048; 80053; 81001; 82550; 82553; 83036; 83605; 83735; 83880; 84484; 84550; 85025; 85379; 85610; 85652; 85730; 86140; 93005; 93970; 94640; 94760; 96361; 96365; 96368; 96376; 99285

== ENCOUNTER 2017-12-29 12:15 | Inpatient (IN) | payer MEDICARE, BC ==
[2017-12-29] MEDS ORDERED: LEVOFLOXACIN 750MG-D5W PMX 750 MG in DEXTROSE/WATER 1 150ML.BAG IVPB STA (12:24)
[2017-12-29] MEDS ORDERED: NALOXONE 0.4 MG/ML 1 ML VIAL IV PRN (12:24)
[2017-12-29] MEDS ORDERED: PIPERACILLIN-TAZOBACTAM 3.375 GM in DEXTROSE/WATER 1 50ML.BAG IVPB STA (12:24)
[2017-12-29] MEDS ORDERED: methylPREDNISolone SOD SUCCI 125 MG/2 ML VIAL IV STA (12:30)
[2017-12-29] MEDS ORDERED: NOREPINEPHRINE 16 MG in SODIUM CHLORIDE 0.9% 250 ML IV SCH (12:30)
--- NOTE | 2017-12-29 12:33 | ED ---
General Adult HPI - General Chief complaint: Shortness of Breath Stated complaint: Sepsis Time Seen by Provider: 12/29/17 12:16 Source: EMS, RN notes reviewed, old records reviewed Mode of arrival: EMS Limitations: no limitations - History of Present Illness Initial comments: This is an 82-year-old male the ER for evaluation. Patient accepted in transfer for evaluation regarding shortness of breath, weakness, pneumonia. Patient is transferred from outside facility for inpatient treatment secondary to pneumonia with COPD and hypoxia MD Complaint: Shortness of Breath, Weakness -: days(s) Location: chest Radiation: non-radiation Severity scale (1-10): 8 Quality: other Consistency: constant Associated Symptoms: cough, diaphoresis, fever/chills, nausea/vomiting, shortness of breath, weakness Treatments Prior to Arrival: none - Related Data Home Medications Medication Instructions Recorded Confirmed Acetaminophen-Codeine 300-30mg 1 tab PO BID PRN 05/29/16 08/20/16 [Tylenol w/codeine #3] Ferrous Sulfate [Iron (65 MG 325 mg PO DAILY 05/29/16 08/20/16 Elemental)] Glimepiride [Amaryl] 6 mg PO QAM 05/29/16 08/20/16 Omeprazole 20 mg PO QAM 05/29/16 08/20/16 Spironolactone-Hctz 25-25Mg 1 tab PO BID 05/29/16 08/20/16 [Aldactazide 25-25 MG] Allopurinol [Zyloprim] 300 mg PO HS 08/20/16 08/20/16 Amiodarone [Cordarone] 200 mg PO DAILY 08/20/16 08/20/16 Aspirin 81 mg PO DAILY 08/20/16 08/20/16 Atorvastatin [Lipitor] 20 mg PO HS 08/20/16 08/20/16 Budesonide [Pulmicort] 0.5 mg INHALATION RT-BID 08/20/16 08/20/16 Carvedilol [Coreg] 3.125 mg PO BID 08/20/16 08/20/16 Docusate [Colace] 100 mg PO DAILY PRN 08/20/16 08/20/16 Furosemide [Lasix] 20 mg PO BID 08/20/16 08/20/16 Gabapentin [Neurontin] 300 mg PO HS 08/20/16 08/20/16 Insulin Aspart [NovoLOG See Protocol SQ AC-TID 08/20/16 08/20/16 (formulary)] Insulin Aspart [NovoLOG See Protocol SQ HS 08/20/16 08/20/16 (formulary)] Insulin Glargine [Lantus] 16 unit SQ QAM 08/20/16 08/20/16 Ipratropium-Albuterol Nebulize 3 ml INHALATION RT-QID PRN 08/20/16 08/20/16 [Duoneb 0.5 mg-3 mg/3 ml Soln] Lactulose 10 gm PO DAILY PRN 08/20/16 08/20/16 Losartan [Cozaar] 50 mg PO DAILY 08/20/16 08/20/16 Nystatin 100,000Unit/gm Cream 1 applic TOPICAL DAILY 08/20/16 08/20/16 [Mycostatin Cream] [place]-3 Fatty Acids [[place]-3] 3,000 mg PO DAILY 08/20/16 08/20/16 Sennosides [Senna] 8.6 mg PO Q12H 08/20/16 08/20/16 Tamsulosin HCl [Flomax] 0.4 mg PO DAILY 08/20/16 08/20/16 Vitamin E 200 unit PO HS 08/20/16 08/20/16 oxyCODONE HCL [Roxicodone] 5 mg PO Q4H 08/20/16 08/20/16 Previous Rx's Medication Instructions Recorded Cefuroxime Axetil [Ceftin] 500 mg PO BID #10 tab 08/26/16 Enoxaparin [Lovenox] 160 mg SQ Q12H #20 syringe 08/26/16 Warfarin Sodium [Coumadin] 2 mg PO DAILY@1800 #7 tablet 08/26/16 Warfarin Sodium [Coumadin] 5 mg PO DAILY@1800 #7 tablet 08/26/16 Allergies Allergy/AdvReac Type Severity Reaction Status Date / Time No Known Allergies Allergy Verified 08/20/16 16:54 Review of Systems ROS Statement: Those systems with pertinent positive or pertinent negative responses have been documented in the HPI. ROS Other: All systems not noted in ROS Statement are negative. Past Medical History Past Medical History: COPD, Diabetes Mellitus, Deep Vein Thrombosis (DVT), Hearing Disorder / Deafness, Hyperlipidemia, Hypertension, Pulmonary Embolus (PE ) Additional Past Medical History / Comment(s): CHF, Abdominal Aneurysm, hard of hearing, empysema History of Any Multi-Drug Resistant Organisms: None Reported Past Surgical History: Appendectomy, Hernia Repair, Tonsillectomy Additional Past Surgical History / Comment(s): cataract, hydrocele, 9 stents in legs, 2 aortic stents Past Anesthesia/Blood Transfusion Reactions: No Reported Reaction Past Psychological History: No Psychological Hx Reported Smoking Status: Former smoker Past Alcohol Use History: None Reported Past Drug Use History: None Reported - Past Family History Mother Family Medical History: Cancer Additional Family Medical History / Comment(s): open heart surgery, CA ovarian and liver, lyme disease General Exam Limitations: no limitations General appearance: alert, in no apparent distress Head exam: Present: atraumatic, normocephalic, normal inspection Eye exam: Present: normal appearance, PERRL, EOMI. Absent: scleral icterus, conjunctival injection, periorbital swelling ENT exam: Present: normal exam, mucous membranes moist Neck exam: Present: normal inspection. Absent: tenderness, meningismus, lymphadenopathy Respiratory exam: Present: wheezes, accessory muscle use, decreased breath sounds, prolonged expiratory. Absent: normal lung sounds bilaterally, respiratory distress, rales, rhonchi, stridor Cardiovascular Exam: Present: regular rate, normal rhythm, normal heart sounds. Absent: systolic murmur, diastolic murmur, rubs, gallop, clicks GI/Abdominal exam: Present: soft, normal bowel sounds. Absent: distended, tenderness, guarding, rebound, rigid Extremities exam: Present: normal inspection, full ROM, normal capillary refill. Absent: tenderness, pedal edema, joint swelling, calf tenderness Back exam: Present: normal inspection Neurological exam: Present: alert, oriented X3, CN II-XII intact Psychiatric exam: Present: normal affect, normal mood Skin exam: Present: warm, dry, intact, normal color. Absent: rash Course Vital Signs 12/29/17 12/29/17 12:19 12:21 Temperature 98.5 F Pulse Rate 61 Respiratory 22 22 Rate Blood Pressure 93/61 O2 Sat by Pulse 96 Oximetry - Reevaluation(s) Reevaluation #1: 12/29/17 12:32 Medical and transfer paperwork is thoroughly reviewed Reevaluation #2: 12/29/17 13:37 Patient denies any chest pain currently. Is improved breathing currently. Medical Decision Making - Medical Decision Making 82 male except in transfer for evaluation regarding sepsis secondary to pneumonia. Patient has central line, will admit and continue blood pressure support IV antibiotics - Lab Data Result diagrams: 12/29/17 12:32 12/29/17 12:32 - Radiology Data Radiology results: report reviewed (Chest x-ray reviewed showing positive pneumonia) Critical Care Time Critical Care Time: Yes Total Critical Care Time: 31 Disposition Clinical Impression: Community acquired pneumonia, Acute exacerbation of chronic obstructive airways disease, Fever, Sepsis, Hypoxia, Coagulopathy Disposition: ADMITTED IP TO THIS HOSP Condition: Critical Is patient prescribed a controlled substance at d/c from ED?: No
[2017-12-29 12:54] LABS: Appearance,Urine Clear (Clear); Bilirubin,Urine Negative (Negative); Blood,Urine Small (Negative); Color,Urine Yellow; Glucose,Urine (UA) Negative (Negative); Hyaline Casts,Urine 15 /lpf (0-2); Ketones,Urine Negative (Negative); Leukocyte Esterase,Urine Negative (Negative); Mucus,Urine Rare /hpf; Nitrite,Urine Negative (Negative); PH, Urine 5.5 (5.0-8.0); Protein,Urine Negative (Negative); RBC,Urine 3 /hpf (0-5); Squamous Epithelial Cell,Urine <1 /hpf (0-4); Urobilinogen,Urine <2.0 mg/dL (<2.0); WBC,Urine 1 /hpf (0-5)
[2017-12-29] MEDS: SODIUM CHLORIDE 0.9% 1,000 ML IV SCH ×2 (13:05→19:46)
[2017-12-29 13:09] LABS: Anisocytosis Slight; Basophils % (A) 0 %; Eosinophils # (A) 0.1 k/uL (0-0.7); Eosinophils % (A) 2 %; HCT 29.2 % (39.0-53.0); HGB 9.2 gm/dL (13.0-17.5); Hypochromasia Slight; Lymphocytes # (A) 0.6 k/uL (1.0-4.8); Lymphocytes % (A) 8 %; MCH 27.1 pg (25.0-35.0); MCHC 31.6 g/dL (31.0-37.0); MCV 85.8 fL (80.0-100.0); Mean Platelet Volume 7.6; Monocytes # (A) 0.4 k/uL (0-1.0); Monocytes % (A) 6 %; Neutrophils # (A) 5.7 k/uL (1.3-7.7); Neutrophils % (A) 82 %; Platelet Count 221 k/uL (150-450); RDW 18.8 % (11.5-15.5)
[2017-12-29 13:10] LABS: Partial Thromboplastin Time 58.5 sec (22.0-30.0)
[2017-12-29 13:13] LABS: Albumin 2.6 g/dL (3.5-5.0); Calcium 7.6 mg/dL (8.4-10.2); Magnesium 1.6 mg/dL (1.6-2.3); Phosphorus 4.3 mg/dL (2.5-4.5); Potassium 3.6 mmol/L (3.5-5.1); Total Bilirubin 0.6 mg/dL (0.2-1.3); Total Protein 5.1 g/dL (6.3-8.2)
[2017-12-29 13:14] LABS: INR 7.5 (<1.2)
[2017-12-29 13:25] LABS: Creatine Kinase MB 3.2 ng/mL (0.0-2.4); Troponin I 0.017 ng/mL (0.000-0.034)
--- NOTE | 2017-12-29 14:24 | P.CNPUL ---
History of Present Illness Consult date: 12/29/17 Reason for consult: pneumonia History of present illness: This is a 82-year-old male patient was brought in from [facility] for altered mental status and hypoxemia. According to the nursing staff the patient has been having the symptoms for the past 24 hours and had been hypertensive this morning and he was brought into the emergency department for further treatment. He was oriented to person and place and time and he was considered to be a full code. The patient was complaining of cough and pleurisy according to the nursing staff. He was also having some altered mentation and he was also having a low-grade fever. He was initially taken to [facility] and following that he got moved to [facility] for further investigation and treatment. A chest x-ray that was done in Hospital showed bilateral pulmonary infiltrates consistent with pneumonia and the patient was given a dose of Rocephin and following that he was transferred here. The triple-lumen catheter was also inserted in his right femoral vein and the patient is currently on pressors at 5 g per KG per minute. The patient is currently on 100% nonrebreather facemask. He is alert. He is arousable. He is talking and following simple commands. He is profoundly weak. He just arrived to our emergency department. His white cell count is at 7. He is toxic on Coumadin with an INR of 7.5 units doesn't show any source of bleeding. He has an acute kidney injury with a creatinine of 2 with a BUN of 70. His anion gap is at 10 and his glucoses at 239. He had a CPK of 659. AST and ALP are within normal limits. Urinalysis also was done and it shows 1 WBC 3 RBCs and no bacteria. The patient received a total of 2 L of IV fluids and the 30th and was given here in the emergency department. He was started a combination of antibiotics and currently is on a combination of Zosyn and Levaquin. Is on Lovenox for DVT prophylaxis. He is on DuoNeb about treatments around the clock. IV fluids as maintenance is running at 150 mL an hour. Review of Systems ROS unobtainable: due to mental status Constitutional: Reports fatigue, Reports fever, Reports lethargy, Reports poor appetite, Reports weakness, Reports weight gain Eyes: denies blurred vision, denies bulging eye, denies decreased vision Ears: deny: decreased hearing, ear discharge, earache, tinnitus Ears, nose, mouth and throat: Denies headache, Denies sore throat Cardiovascular: Reports decreased exercise tolerance, Reports dyspnea on exertion Respiratory: Reports cough, Reports dyspnea Gastrointestinal: Denies abdominal pain, Denies diarrhea, Denies nausea, Denies vomiting Genitourinary: Reports as per HPI Musculoskeletal: Reports as per HPI, Reports gait dysfunction Musculoskeletal: bilateral: ankle swelling, absent: ankle pain, ankle stiffness Integumentary: Denies pruritus, Denies rash Neurological: Reports balance difficulties, Reports change in mentation, Reports gait dysfunction, Reports weakness Psychiatric: Denies anxiety, Denies depression Hematologic/Lymphatic: Reports as per HPI Allergic/Immunologic: Reports as per HPI Past Medical History Past Medical History: COPD, Diabetes Mellitus, Deep Vein Thrombosis (DVT), Hearing Disorder / Deafness, Hyperlipidemia, Hypertension, Pulmonary Embolus (PE ) Additional Past Medical History / Comment(s): Previous history of DVT/PE and patient has a maintained on long-term and to coagulation with warfarin, BPH, COPD, GE reflux, hypertension, iron deficiency anemia, muscle weakness generalized, coronary artery disease, gout, chronic constipation, impaired hearing, coronary artery disease, chronic kidney failure stage III disease, generalized edema, difficulty in walking, hyperlipidemia, depression, seasonal ALLERGIC rhinitis, diabetes mellitus type 2, glaucoma, osteoarthritis. Patient also is known to have abdominal aortic aneurysm. 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 with a wart to biiliac endovascular stent graft and then aneurysm measuring 10 x 9 cm in size and right iliac endovascular stent and the right common iliac artery aneurysm in addition to a left common iliac artery aneurysm measuring 3.1 cm and 3.0 cm respectively History of Any Multi-Drug Resistant Organisms: None Reported Past Surgical History: Appendectomy, Hernia Repair, Tonsillectomy Additional Past Surgical History / Comment(s): cataract, hydrocele, 9 stents in legs, 2 aortic stents Past Anesthesia/Blood Transfusion Reactions: No Reported Reaction Past Psychological History: No Psychological Hx Reported Smoking Status: Former smoker Past Alcohol Use History: None Reported Past Drug Use History: None Reported - Past Family History Mother Family Medical History: Cancer Additional Family Medical History / Comment(s): open heart surgery, CA ovarian and liver, lyme disease Medications and Allergies Home Medications Medication Instructions Recorded Confirmed Type Acetaminophen-Codeine 300-30mg 1 tab PO BID PRN 05/29/16 08/20/16 History [Tylenol w/codeine #3] Ferrous Sulfate [Iron (65 MG 325 mg PO DAILY 05/29/16 08/20/16 History Elemental)] Glimepiride [Amaryl] 6 mg PO QAM 05/29/16 08/20/16 History Omeprazole 20 mg PO QAM 05/29/16 08/20/16 History Spironolactone-Hctz 25-25Mg 1 tab PO BID 05/29/16 08/20/16 History [Aldactazide 25-25 MG] Allopurinol [Zyloprim] 300 mg PO HS 08/20/16 08/20/16 History Amiodarone [Cordarone] 200 mg PO DAILY 08/20/16 08/20/16 History Aspirin 81 mg PO DAILY 08/20/16 08/20/16 History Atorvastatin [Lipitor] 20 mg PO HS 08/20/16 08/20/16 History Budesonide [Pulmicort] 0.5 mg INHALATION RT-BID 08/20/16 08/20/16 History Carvedilol [Coreg] 3.125 mg PO BID 08/20/16 08/20/16 History Docusate [Colace] 100 mg PO DAILY PRN 08/20/16 08/20/16 History Furosemide [Lasix] 20 mg PO BID 08/20/16 08/20/16 History Gabapentin [Neurontin] 300 mg PO HS 08/20/16 08/20/16 History Insulin Aspart [NovoLOG See Protocol SQ AC-TID 08/20/16 08/20/16 History (formulary)] Insulin Aspart [NovoLOG See Protocol SQ HS 08/20/16 08/20/16 History (formulary)] Insulin Glargine [Lantus] 16 unit SQ QAM 08/20/16 08/20/16 History Ipratropium-Albuterol Nebulize 3 ml INHALATION RT-QID PRN 08/20/16 08/20/16 History [Duoneb 0.5 mg-3 mg/3 ml Soln] Lactulose 10 gm PO DAILY PRN 08/20/16 08/20/16 History Losartan [Cozaar] 50 mg PO DAILY 08/20/16 08/20/16 History Nystatin 100,000Unit/gm Cream 1 applic TOPICAL DAILY 08/20/16 08/20/16 History [Mycostatin Cream] [place]-3 Fatty Acids [[place]-3] 3,000 mg PO DAILY 08/20/16 08/20/16 History Sennosides [Senna] 8.6 mg PO Q12H 08/20/16 08/20/16 History Tamsulosin HCl [Flomax] 0.4 mg PO DAILY 08/20/16 08/20/16 History Vitamin E 200 unit PO HS 08/20/16 08/20/16 History oxyCODONE HCL [Roxicodone] 5 mg PO Q4H 08/20/16 08/20/16 History Cefuroxime Axetil [Ceftin] 500 mg PO BID #10 tab 08/26/16 Rx Enoxaparin [Lovenox] 160 mg SQ Q12H #20 syringe 08/26/16 Rx Warfarin Sodium [Coumadin] 2 mg PO DAILY@1800 #7 tablet 08/26/16 Rx Warfarin Sodium [Coumadin] 5 mg PO DAILY@1800 #7 tablet 08/26/16 Rx Allergies Allergy/AdvReac Type Severity Reaction Status Date / Time No Known Allergies Allergy Verified 08/20/16 16:54 Physical Exam Vitals: Vital Signs Temp Pulse Resp BP Pulse Ox 12/29/17 12:30 60 22 116/56 100 12/29/17 12:21 22 12/29/17 12:19 98.5 F 61 22 93/61 96 Intake and Output 12/28/17 12/29/17 12/29/17 22:59 06:59 14:59 Other: Weight 185.973 kg Obese, the patient is currently mild respiratory distress and the patient utilizing 100% nonrebreather facemask. Head exam was generally normal. There was no scleral icterus or corneal arcus. Mucous membranes were moist. Neck was supple and without jugular venous distension, thyromegaly, or carotid bruits. Carotids were easily palpable bilaterally. There was no adenopathy. The patient has significant crowding of the posterior oropharynx and a Mallampati class IV Lungs sounds are diminished bilaterally and the patient has bibasilar crackles heard throughout the lung mittal Cardiac exam revealed the PMI to be normally situated and sized. The rhythm was regular and no extrasystoles were noted during several minutes of auscultation. The first and second heart sounds were normal and physiologic splitting of the second heart sound was noted. There were no murmurs, rubs, clicks, or gallops. Abdomen is soft obese and nontender. No direct tenderness. No rebound tenderness. No guarding. Bowel sounds are hypoactive at the present. Extremities revealed +1 pitting edema there is no cyanosis or clubbing. Pulses are present lower extremity is bilaterally. Neurologic the patient is somnolent and sleepy and lethargic yet arousable. Able to follow simple commands. Examination of the skin revealed no evidence of significant rashes, suspicious appearing nevi or other concerning lesions. Results - Laboratory Findings CBC and BMP: 12/29/17 12:32 12/29/17 12:32 PT/INR, D-dimer PT 69.0 sec (9.0-12.0) H 12/29/17 12:32 INR 7.5 (<1.2) H* 12/29/17 12:32 Abnormal lab findings: Abnormal Labs 12/29/17 12/29/17 12/29/17 12:32 12:32 12:32 RBC 3.40 L Hgb 9.2 L Hct 29.2 L RDW 18.8 H Lymphocytes # 0.6 L PT INR APTT Sodium 134 L BUN 70 H Creatinine 2.03 H Glucose 239 H Calcium 7.6 L AST 66 H Total Creatine Kinase 659 H CK-MB (CK-2) 3.2 H Total Protein 5.1 L Albumin 2.6 L Urine Blood Hyaline Casts Urine Mucus 12/29/17 12/29/17 12:32 12:32 RBC Hgb Hct RDW Lymphocytes # PT 69.0 H INR 7.5 H* APTT 58.5 H Sodium BUN Creatinine Glucose Calcium AST Total Creatine Kinase CK-MB (CK-2) Total Protein Albumin Urine Blood Small H Hyaline Casts 15 H Urine Mucus Rare H - Diagnostic Findings Chest x-ray: image reviewed Assessment and Plan Plan: Assessment 1 acute hypoxic respiratory failure secondary to bilateral pneumonia. The patient is currently in the 100% nonrebreather facemask. 2 sepsis, likely secondary to underlying pneumonia 3 acute hypotension secondary to sepsis/septic shock and the patient is currently resuscitated IV fluids and he is on low-dose norepinephrine infusion for blood pressure control. Patient is a triple lumen catheter in his right groin/femoral vein area. 4 Coumadin toxicity without evidence of any bleeding. The patient's INR is above 7 5 chronic kidney disease, stage III, stable 6 chronic anemia/anemia of chronic disease 7 morbid obesity with a BMI of 48.6 8 previous history of DVT and pulmonary embolism, recurrent and the patient is a maintained on warfarin outpatient basis 9 BPH 10 COPD 11 history of hypertension 12 history of iron deficiency anemia 13 coronary artery disease 14 gout 15 chronic constipation 16 impaired hearing 17 hyperlipidemia 18 depression 19 glaucoma 20 diabetes mellitus type 2 21 history of aortic aneurysm status post endovascular stent grafting 22 left common iliac artery aneurysm and a right common iliac artery aneurysm measuring 3 and 3.1 cm respectively based on a previous CAT scan of the abdomen 23 impaired performance and functional status along with multiple medical comorbidities. The patient is a resident of [facility]. Plan Obtain urine cultures. Obtain blood cultures and obtain sputum cultures. Continue with fluid resuscitation with normal saline at rate of 150 mL an hour. Wean off pressors as tolerated to maintain a mean arterial pressure above 65. Cover the patient with a combination of Levaquin and Zosyn. DuoNeb nebulized treatments around the clock. IV Solu-Medrol. Monitor the blood sugar and use insulin drip if needed. Hold the warfarin for now and give the patient 5 mg of vitamin K. Resume home medications including amiodarone, Lipitor, aspirin, Neurontin and Flomax. Hold rest of the cardiac and antihypertensive medication. Monitor blood pressure. Transfer this patient to the ICU. Blood gases from [facility] was noted. Lactic acid level is mildly elevated. We'll continue to follow. Condition is critical baseline above-mentioned comorbidities. Previous history of DVT/PE and patient has a maintained on long-term and to coagulation with warfarin, BPH, COPD, GE reflux, hypertension, iron deficiency anemia, muscle weakness generalized, coronary artery disease, gout, chronic constipation, impaired hearing, coronary artery disease, chronic kidney failure stage III disease, generalized edema, difficulty in walking, hyperlipidemia, depression, seasonal ALLERGIC rhinitis, diabetes mellitus type 2, glaucoma, osteoarthritis. Patient also is known to have abdominal aortic aneurysm. 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
[2017-12-29] MEDS ORDERED: PHYTONADIONE 5 MG in SODIUM CHLORIDE 0.9% 50 ML IVPB STA (14:25)
[2017-12-29] MEDS: SODIUM CHLORIDE 0.9% 500 ML IV SCH (14:50)
[2017-12-29] MEDS: IPRATROPIUM-ALBUTEROL 3 ML NEB INHALATION PRN ×2 (15:42→19:44)
--- NOTE | 2017-12-29 16:39 | XR ---
EXAMINATION TYPE: XR chest 1V DATE OF EXAM: 12/29/2017 COMPARISON: Today HISTORY: Short of breath TECHNIQUE: Single frontal view of the chest is obtained. FINDINGS: There are bilateral pulmonary infiltrates. There is mild pulmonary congestion. Heart appea rs enlarged. IMPRESSION: There is probably congestive heart failure. There is patchy bilateral pneumonia. There i s increasing right upper lobe pneumonia compared to exam this morning at 9:30 AM.
[2017-12-29] MEDS ORDERED: HYDROCORTISONE 2.5% RECTAL CREAM 30 GM TUBE RECTAL PRN (18:16)
[2017-12-29] MEDS ORDERED: MAGNESIUM HYDROXIDE 2,400 MG/10 ML CUP PO PRN (18:16)
[2017-12-29] MEDS ORDERED: INSULIN ASPART 100 UNIT/ML 1 ML 10 ML VIAL SQ ONE (18:26)
--- NOTE | 2017-12-29 18:31 | P.HPIM ---
History of Present Illness by family physicain 82 year old man was transfered from [facility]. was residing at [facility]. Family states he has had a cough for about 10 days with decreasing mentation. Patient is bedbound at home. Hx of COPD and abd aneurysm.Hx of DVT on coumadin toxic at 7.5. Patient presently is on levaphed for hypotension . Has been evaluated by Dr Stone. Patient has not been seen by family physician for 2 years. Review of Systems ROS unobtainable: due to mental status Past Medical History Past Medical History: COPD, Diabetes Mellitus, Deep Vein Thrombosis (DVT), Hearing Disorder / Deafness, Hyperlipidemia, Hypertension, Pulmonary Embolus (PE ) Additional Past Medical History / Comment(s): Previous history of DVT/PE and patient has a maintained on long-term and to coagulation with warfarin, BPH, COPD, GE reflux, hypertension, iron deficiency anemia, muscle weakness generalized, coronary artery disease, gout, chronic constipation, impaired hearing, coronary artery disease, chronic kidney failure stage III disease, generalized edema, difficulty in walking, hyperlipidemia, depression, seasonal ALLERGIC rhinitis, diabetes mellitus type 2, glaucoma, osteoarthritis. Patient also is known to have abdominal aortic aneurysm. 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 with a wart to biiliac endovascular stent graft and then aneurysm measuring 10 x 9 cm in size and right iliac endovascular stent and the right common iliac artery aneurysm in addition to a left common iliac artery aneurysm measuring 3.1 cm and 3.0 cm respectively History of Any Multi-Drug Resistant Organisms: None Reported Past Surgical History: Appendectomy, Hernia Repair, Tonsillectomy Additional Past Surgical History / Comment(s): cataract, hydrocele, 9 stents in legs, 2 aortic stents Past Anesthesia/Blood Transfusion Reactions: No Reported Reaction Smoking Status: Former smoker - Past Family History Mother Family Medical History: Cancer Additional Family Medical History / Comment(s): open heart surgery, CA ovarian and liver, lyme disease Medications and Allergies Home Medications Medication Instructions Recorded Confirmed Type Ferrous Sulfate [Iron (65 MG 325 mg PO DAILY 05/29/16 12/29/17 History Elemental)] Omeprazole 20 mg PO QAM 05/29/16 12/29/17 History Spironolactone-Hctz 25-25Mg 1 tab PO BID 05/29/16 12/29/17 History [Aldactazide 25-25 MG] Allopurinol [Zyloprim] 300 mg PO HS 08/20/16 12/29/17 History Amiodarone [Cordarone] 200 mg PO DAILY 08/20/16 12/29/17 History Aspirin 81 mg PO DAILY 08/20/16 12/29/17 History Atorvastatin [Lipitor] 20 mg PO HS 08/20/16 12/29/17 History Budesonide [Pulmicort] 0.5 mg INHALATION RT-BID 08/20/16 12/29/17 History Carvedilol [Coreg] 3.125 mg PO BID 08/20/16 12/29/17 History Gabapentin [Neurontin] 300 mg PO BID 08/20/16 12/29/17 History Insulin Glargine [Lantus] 16 unit SQ QAM 08/20/16 12/29/17 History Ipratropium-Albuterol Nebulize 3 ml INHALATION RT-TID 08/20/16 12/29/17 History [Duoneb 0.5 mg-3 mg/3 ml Soln] Losartan [Cozaar] 50 mg PO DAILY 08/20/16 12/29/17 History Tamsulosin HCl [Flomax] 0.4 mg PO DAILY 08/20/16 12/29/17 History Acetaminophen Tab [Tylenol Tab] 650 mg PO TID 12/29/17 12/29/17 History Furosemide [Lasix] 40 mg PO DAILY 12/29/17 12/29/17 History Hydrocortisone Pr Cream 1 applic RECTAL TID PRN 12/29/17 12/29/17 History [Proctosol-Hc 2.5%] Latanoprost [Xalatan 0.005%] 1 drop BOTH EYES HS 12/29/17 12/29/17 History Magnesium Hydroxide [Milk of 2,400 mg PO DAILY PRN 12/29/17 12/29/17 History Magnesia] Melatonin 5 mg PO HS 12/29/17 12/29/17 History Montelukast [Singulair] 10 mg PO DAILY 12/29/17 12/29/17 History Mylanta 10 ml PO Q4H PRN 12/29/17 12/29/17 History SILVER sulfADIAZINE Cream 1 applic TOPICAL BID 12/29/17 12/29/17 History [Silvadene 1% Cream] Sennosides-Docusate Sodium 2 tab PO BID 12/29/17 12/29/17 History [Senokot-S] Sertraline HCl [Zoloft] 100 mg PO DAILY 12/29/17 12/29/17 History Tears Naturale Free Solution 1 drop BOTH EYES BID 12/29/17 12/29/17 History Warfarin Sodium 2.5 mg PO HS 12/29/17 12/29/17 History Warfarin Sodium 4 mg PO HS 12/29/17 12/29/17 History fentaNYL 100MCG/HR PATCH 1 patch TRANSDERM Q72H 12/29/17 12/29/17 History [Duragesic 100MCG/HR] guaiFENesin [Mucinex] 600 mg PO Q12H 12/29/17 12/29/17 History Allergies Allergy/AdvReac Type Severity Reaction Status Date / Time No Known Allergies Allergy Verified 12/29/17 14:17 Physical Exam Vitals: Vital Signs Temp Pulse Resp BP Pulse Ox 12/29/17 16:00 56 L 12/29/17 15:45 58 L 12/29/17 14:00 56 L 22 126/61 98 12/29/17 13:30 58 L 22 112/54 99 12/29/17 13:00 62 18 102/52 100 12/29/17 12:30 60 22 116/56 100 12/29/17 12:21 22 12/29/17 12:19 98.5 F 61 22 93/61 96 Intake and Output 12/29/17 12/29/17 12/29/17 06:59 14:59 22:59 Intake Total 350 Output Total 600 Balance -250 Intake: IV 300 Sodium Chloride 0.9% 1, 300 000 ml @ 150 mls/hr IV . Q6H40M [facility] Rx#:[id number] Intake, IV Titration 50 Amount Phytonadione 5 mg In 50 Sodium Chloride 0.9% 50 ml @ 100 mls/hr IVPB ONCE [facility] Rx#:[id number] Output: Urine 600 Other: Weight 185.973 kg - Constitutional General appearance: mild distress, morbidly obese - EENT Eyes: PERRLA Ears: bilateral: normal - Neck Neck: normal ROM - Respiratory Respiratory: bilateral: diminished, rhonchi - Cardiovascular Rhythm: irregularly irregular leg Peripheral Edema: bilateral: 2+ - Gastrointestinal General gastrointestinal: soft - Integumentary Integumentary: normal - Musculoskeletal Musculoskeletal: generalized weakness - Psychiatric awake not responsive to verbal communication Results CBC & Chem 7: 12/29/17 12:32 12/29/17 12:32 Labs: Abnormal Lab Results - Last 24 Hours (Table) 12/29/17 12/29/17 12/29/17 Range/Units 12:32 12:32 12:32 RBC 3.40 L (4.30-5.90) m/uL Hgb 9.2 L (13.0-17.5) gm/dL Hct 29.2 L (39.0-53.0) % RDW 18.8 H (11.5-15.5) % Lymphocytes # 0.6 L (1.0-4.8) k/uL PT (9.0-12.0) sec INR (<1.2) APTT (22.0-30.0) sec Sodium 134 L (137-145) mmol/L BUN 70 H (9-20) mg/dL Creatinine 2.03 H (0.66-1.25) mg/dL Glucose 239 H (74-99) mg/dL Calcium 7.6 L (8.4-10.2) mg/dL AST 66 H (17-59) U/L Total Creatine Kinase 659 H (55-170) U/L CK-MB (CK-2) 3.2 H (0.0-2.4) ng/mL Total Protein 5.1 L (6.3-8.2) g/dL Albumin 2.6 L (3.5-5.0) g/dL Urine Blood (Negative) Hyaline Casts (0-2) /lpf Urine Mucus (None) /hpf 12/29/17 12/29/17 Range/Units 12:32 12:32 RBC (4.30-5.90) m/uL Hgb (13.0-17.5) gm/dL Hct (39.0-53.0) % RDW (11.5-15.5) % Lymphocytes # (1.0-4.8) k/uL PT 69.0 H (9.0-12.0) sec INR 7.5 H* (<1.2) APTT 58.5 H (22.0-30.0) sec Sodium (137-145) mmol/L BUN (9-20) mg/dL Creatinine (0.66-1.25) mg/dL Glucose (74-99) mg/dL Calcium (8.4-10.2) mg/dL AST (17-59) U/L Total Creatine Kinase (55-170) U/L CK-MB (CK-2) (0.0-2.4) ng/mL Total Protein (6.3-8.2) g/dL Albumin (3.5-5.0) g/dL Urine Blood Small H (Negative) Hyaline Casts 15 H (0-2) /lpf Urine Mucus Rare H (None) /hpf Microbiology - Last 24 Hours (Table) 12/29/17 12:32 Urine Culture - Preliminary Urine,Catheterized Chest x-ray: report reviewed Assessment and Plan Plan: assessment acute respiratory failure secondary to pneumonia sepsis secondary to pneumonia acute hypotension secondary to sepsis coumadin toxcity chronic kidney disease stage III chronic anemia secodary to chronic disease morbid obesity BMI 48.6 hx of DVT and PE on coumadin BPH COPD hypertension iron def anemia CAD gout chronic constipation impaired hearing hyperlipemia depression glaucoma DM II aortic aneurysm with stent graft Plan continue consultation with Dr Stone transfer to ICU
[2017-12-29 18:33] LABS: Glucose,Whole Blood 284 mg/dL (75-99)
[2017-12-29] MEDS: methylPREDNISolone SOD SUCCI 125 MG/2 ML VIAL IV SCH ×2 (18:36→23:10)
[2017-12-29] MEDS: PIPERACILLIN-TAZOBACTAM 3.375 GM in DEXTROSE/WATER 1 50ML.BAG IVPB SCH (20:13)
[2017-12-29 20:31] LABS: Glucose,Whole Blood 305 mg/dL (75-99)
[2017-12-29] MEDS: INSULIN ASPART 100 UNIT/ML 1 ML 10 ML VIAL SQ SCH (20:33)
[2017-12-29] MEDS: ATORVASTATIN 20 MG TAB PO SCH (20:36)
[2017-12-29] MEDS: guaiFENesin 600 MG TABLET.ER PO SCH (20:37)
[2017-12-29] MEDS: SENNOSIDES-DOCUSATE SODIUM 1 EACH TAB PO SCH (20:37)
[2017-12-29] MEDS: GABAPENTIN 300 MG CAP PO SCH (20:37)
[2017-12-29] MEDS: LATANOPROST 0.005% OPHTH DROPS 2.5 ML BTL BOTH EYES SCH (21:10)
[2017-12-29] MEDS: ARTIFICIAL TEARS-HYPROMELLOSE DROPS 15 ML BTL BOTH EYES SCH (21:10)
[2017-12-30] MEDS: PIPERACILLIN-TAZOBACTAM 3.375 GM in DEXTROSE/WATER 1 50ML.BAG IVPB SCH ×3 (04:27→20:10)
[2017-12-30] MEDS: SODIUM CHLORIDE 0.9% 1,000 ML IV SCH ×4 (04:31→20:16)
[2017-12-30] MEDS: methylPREDNISolone SOD SUCCI 125 MG/2 ML VIAL IV SCH ×4 (05:14→23:18)
[2017-12-30 05:17] LABS: Anisocytosis Slight; Basophils % (A) 0 %; Eosinophils % (A) 0 %; HCT 29.9 % (39.0-53.0); HGB 9.1 gm/dL (13.0-17.5); Hypochromasia Moderate; Lymphocytes # (A) 0.4 k/uL (1.0-4.8); Lymphocytes % (A) 6 %; MCH 26.5 pg (25.0-35.0); MCHC 30.5 g/dL (31.0-37.0); MCV 86.8 fL (80.0-100.0); Mean Platelet Volume 7.2; Monocytes # (A) 0.1 k/uL (0-1.0); Monocytes % (A) 2 %; Neutrophils # (A) 5.5 k/uL (1.3-7.7); Neutrophils % (A) 91 %; Platelet Count 245 k/uL (150-450); RBC 3.45 m/uL (4.30-5.90); RDW 18.5 % (11.5-15.5)
[2017-12-30 05:32] LABS: INR 1.7 (<1.2); Prothrombin Time 15.3 sec (9.0-12.0)
[2017-12-30 05:54] LABS: Albumin 2.7 g/dL (3.5-5.0); Calcium 8.4 mg/dL (8.4-10.2); Magnesium 1.8 mg/dL (1.6-2.3); Phosphorus 4.1 mg/dL (2.5-4.5); Potassium 3.6 mmol/L (3.5-5.1); Total Bilirubin 0.5 mg/dL (0.2-1.3); Total Protein 5.4 g/dL (6.3-8.2)
[2017-12-30] MEDS ORDERED: Magnesium Replacement Protocol 1 EACH MISC MISCELLANE PRN (06:01)
[2017-12-30] MEDS ORDERED: Potassium Replacement Protocol 1 EACH MISC MISCELLANE PRN (06:01)
[2017-12-30] MEDS: MAGNESIUM SULFATE-D5W PMX 1 GM in DEXTROSE/WATER 1 100ML.BAG IVPB SCH ×2 (06:17→07:06)
[2017-12-30] MEDS: IPRATROPIUM-ALBUTEROL 3 ML NEB INHALATION PRN ×3 (06:57→19:22)
[2017-12-30] MEDS ORDERED: POTASSIUM CHLORIDE ER 20 MEQ TAB.ER PO SCH (07:00)
[2017-12-30 07:21] LABS: Glucose,Whole Blood 252 mg/dL (75-99)
[2017-12-30] MEDS: INSULIN ASPART 100 UNIT/ML 1 ML 10 ML VIAL SQ SCH ×7 (08:04→20:11)
[2017-12-30] MEDS: INSULIN DETEMIR 100 UNIT/ML 10 ML VIAL SQ SCH (08:05)
[2017-12-30] MEDS: PANTOPRAZOLE 40 MG/10 ML VIAL IV SCH (08:07)
[2017-12-30] MEDS: AMIODARONE 200 MG TAB PO SCH (08:09)
[2017-12-30] MEDS: TAMSULOSIN 0.4 MG CAP.ER.24H PO SCH (08:10)
[2017-12-30] MEDS: SENNOSIDES-DOCUSATE SODIUM 1 EACH TAB PO SCH ×2 (08:10→20:11)
[2017-12-30] MEDS: GABAPENTIN 300 MG CAP PO SCH ×2 (08:10→20:11)
[2017-12-30] MEDS: ASPIRIN 81 MG PO SCH (08:10)
[2017-12-30] MEDS: SERTRALINE 100 MG TAB PO SCH (08:10)
[2017-12-30] MEDS: ARTIFICIAL TEARS-HYPROMELLOSE DROPS 15 ML BTL BOTH EYES SCH ×2 (08:11→20:10)
[2017-12-30] MEDS: guaiFENesin 600 MG TABLET.ER PO SCH ×2 (08:19→20:11)
--- NOTE | 2017-12-30 08:37 | XR ---
EXAMINATION TYPE: XR chest 1V DATE OF EXAM: 12/30/2017 COMPARISON: 12/29/2017 HISTORY: Shortness of breath TECHNIQUE: Single frontal view of the chest is obtained. FINDINGS: Bilateral consolidation and pleural effusion noted. No pneumothorax. Hypertrophic changes of the spine. Interstitial pattern stable. IMPRESSION: 1. Bilateral pleural-parenchymal changes are stable correlate for pneumonia versus CHF.
[2017-12-30] MEDS ORDERED: ENOXAPARIN 40 MG/0.4 ML SYRINGE SQ SCH (09:00)
--- NOTE | 2017-12-30 09:13 | US ---
EXAMINATION TYPE: US venous doppler duplex LE RT DATE OF EXAM: 12/30/2017 8:50 AM COMPARISON: US 2017 CLINICAL HISTORY: leg pain. Right leg pain and swelling, history of DVT, patient on blood thinners. SIDE PERFORMED: Right TECHNIQUE: The lower extremity deep venous system is examined utilizing real time linear array sonog nolberto with graded compression, doppler sonography and color-flow sonography. VESSELS IMAGED: External Iliac Vein (EIV) Common Femoral Vein Deep Femoral Vein Greater Saphenous Vein * Femoral Vein Popliteal Vein Small Saphenous Vein * Proximal Calf Veins (* superficial vessels) Difficult and extremely limited study due to patient body habitus and patient unable to hold leg st ill during exam, bandage covering right groin: exam started at mid femoral vein. Right Leg: At mid femoral vein possible duel veins seen: unable to get flow within or compress poste rior vein, unable to visualize distal femoral vein, appears negative for DVT within popliteal vein. IMPRESSION: 1. Right lower extremity deep venous thrombosis. 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 The more posterior femoral vein is incompletely compressible suggesting underlying right l ower extremity deep venous thrombosis. The second of the duplicated veins is patent.
--- NOTE | 2017-12-30 11:28 | P.PN ---
Subjective Patient improving awake and alert able to carry on conversation. Noted to have DVT right leg Coumadin restarted blood pressure stable off Levophed Objective - Vital Signs Vital signs: Vital Signs Temp 97.0 F L 12/30/17 08:00 Pulse 55 L 12/30/17 10:00 Resp 20 12/30/17 10:00 BP 124/57 12/30/17 10:00 Pulse Ox 96 12/30/17 10:00 Intake & Output 12/29/17 12/30/17 12/30/17 18:59 06:59 18:59 Intake Total 303.991 2815.5 637.5 Output Total 775 2170 275 Balance -258.952 -182.5 362.5 Weight 185.973 kg 176 kg 176 kg Intake: IV 450 1987.5 387.5 Magnesium Sulfate-D5w Pmx 100 1 gm In Dextrose/Water 1 100ml.bag @ 100 mls/hr IVPB Q1H [facility] Rx#: [id number] Piperacillin-Tazobactam 3 87.5 12.5 .375 gm In Dextrose/Water 1 50ml.bag @ 12.5 mls/hr IVPB Q8H [facility] Rx#: [id number] Sodium Chloride 0.9% 1, 450 1800 375 000 ml @ 150 mls/hr IV . Q6H40M [facility] Rx#:[id number] Intake, IV Titration 66.048 Amount Norepinephrine 16 mg In 16.048 Sodium Chloride 0.9% 250 ml @ Titrate IV .Q0M [facility] Rx#:[id number] Phytonadione 5 mg In 50 Sodium Chloride 0.9% 50 ml @ 100 mls/hr IVPB ONCE [facility] Rx#:[id number] Oral 250 Output: Urine 775 2170 275 Other: Voiding Method Indwelling Catheter Indwelling Catheter - Constitutional General appearance: Present: mild distress, morbidly obese - EENT Eyes: Present: PERRLA Ears: bilateral: normal - Neck Neck: Present: normal ROM - Respiratory Respiratory: bilateral: rhonchi - Cardiovascular Rhythm: regular - Peripheral edema leg Peripheral Edema: right: 2+ - Gastrointestinal General gastrointestinal: Present: soft - Integumentary Integumentary: Present: normal - Neurologic Neurologic: Present: CNII-XII intact - Musculoskeletal Musculoskeletal Comment(s): Right leg pain Musculoskeletal: Present: generalized weakness - Psychiatric Psychiatric: Present: A&O x's 3, appropriate affect, intact judgment & insight - Labs CBC & Chem 7: 12/30/17 04:38 12/30/17 04:38 Labs: Abnormal Lab Results - Last 24 Hours (Table) 12/29/17 12/29/17 12/29/17 Range/Units 12:32 12:32 12:32 RBC 3.40 L (4.30-5.90) m/uL Hgb 9.2 L (13.0-17.5) gm/dL Hct 29.2 L (39.0-53.0) % MCHC (31.0-37.0) g/dL RDW 18.8 H (11.5-15.5) % Lymphocytes # 0.6 L (1.0-4.8) k/uL PT (9.0-12.0) sec INR (<1.2) APTT (22.0-30.0) sec Sodium 134 L (137-145) mmol/L BUN 70 H (9-20) mg/dL Creatinine 2.03 H (0.66-1.25) mg/dL Glucose 239 H (74-99) mg/dL POC Glucose (mg/dL) (75-99) mg/dL Calcium 7.6 L (8.4-10.2) mg/dL AST 66 H (17-59) U/L Total Creatine Kinase 659 H (55-170) U/L CK-MB (CK-2) 3.2 H (0.0-2.4) ng/mL Total Protein 5.1 L (6.3-8.2) g/dL Albumin 2.6 L (3.5-5.0) g/dL Urine Blood (Negative) Hyaline Casts (0-2) /lpf Urine Mucus (None) /hpf 12/29/17 12/29/17 12/29/17 Range/Units 12:32 12:32 18:25 RBC (4.30-5.90) m/uL Hgb (13.0-17.5) gm/dL Hct (39.0-53.0) % MCHC (31.0-37.0) g/dL RDW (11.5-15.5) % Lymphocytes # (1.0-4.8) k/uL PT 69.0 H (9.0-12.0) sec INR 7.5 H* (<1.2) APTT 58.5 H (22.0-30.0) sec Sodium (137-145) mmol/L BUN (9-20) mg/dL Creatinine (0.66-1.25) mg/dL Glucose (74-99) mg/dL POC Glucose (mg/dL) 284 H (75-99) mg/dL Calcium (8.4-10.2) mg/dL AST (17-59) U/L Total Creatine Kinase (55-170) U/L CK-MB (CK-2) (0.0-2.4) ng/mL Total Protein (6.3-8.2) g/dL Albumin (3.5-5.0) g/dL Urine Blood Small H (Negative) Hyaline Casts 15 H (0-2) /lpf Urine Mucus Rare H (None) /hpf 12/29/17 12/30/17 12/30/17 Range/Units 20:27 04:38 04:38 RBC 3.45 L (4.30-5.90) m/uL Hgb 9.1 L (13.0-17.5) gm/dL Hct 29.9 L (39.0-53.0) % MCHC 30.5 L (31.0-37.0) g/dL RDW 18.5 H (11.5-15.5) % Lymphocytes # 0.4 L (1.0-4.8) k/uL PT (9.0-12.0) sec INR (<1.2) APTT (22.0-30.0) sec Sodium (137-145) mmol/L BUN 56 H (9-20) mg/dL Creatinine 1.43 H (0.66-1.25) mg/dL Glucose 222 H (74-99) mg/dL POC Glucose (mg/dL) 305 H (75-99) mg/dL Calcium (8.4-10.2) mg/dL AST (17-59) U/L Total Creatine Kinase (55-170) U/L CK-MB (CK-2) (0.0-2.4) ng/mL Total Protein 5.4 L (6.3-8.2) g/dL Albumin 2.7 L (3.5-5.0) g/dL Urine Blood (Negative) Hyaline Casts (0-2) /lpf Urine Mucus (None) /hpf 12/30/17 12/30/17 Range/Units 04:38 07:18 RBC (4.30-5.90) m/uL Hgb (13.0-17.5) gm/dL Hct (39.0-53.0) % MCHC (31.0-37.0) g/dL RDW (11.5-15.5) % Lymphocytes # (1.0-4.8) k/uL PT 15.3 H (9.0-12.0) sec INR 1.7 H (<1.2) APTT (22.0-30.0) sec Sodium (137-145) mmol/L BUN (9-20) mg/dL Creatinine (0.66-1.25) mg/dL Glucose (74-99) mg/dL POC Glucose (mg/dL) 252 H (75-99) mg/dL Calcium (8.4-10.2) mg/dL AST (17-59) U/L Total Creatine Kinase (55-170) U/L CK-MB (CK-2) (0.0-2.4) ng/mL Total Protein (6.3-8.2) g/dL Albumin (3.5-5.0) g/dL Urine Blood (Negative) Hyaline Casts (0-2) /lpf Urine Mucus (None) /hpf Microbiology - Last 24 Hours (Table) 12/29/17 22:52 Gram Stain - Preliminary Sputum Sputum Culture - Preliminary 12/29/17 12:32 Urine Culture - Preliminary Urine,Catheterized Assessment and Plan Plan: Assessment Acute hypoxic respiratory failure secondary to bilateral pneumonia Sepsis related to pneumonia Acute hypotension secondary to sepsis Coumadin toxicity normalized chronic kidney disease stage III 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 Stone
[2017-12-30 12:00] LABS: Glucose,Whole Blood 245 mg/dL (75-99)
[2017-12-30] MEDS: FERROUS SULFATE 325 MG TAB PO SCH (12:22)
--- NOTE | 2017-12-30 14:08 | P.PN ---
Subjective Progress Note Date: 12/30/17 This is a 82-year-old male patient was brought in from [facility] for altered mental status and hypoxemia. According to the nursing staff the patient has been having the symptoms for the past 24 hours and had been hypertensive this morning and he was brought into the emergency department for further treatment. He was oriented to person and place and time and he was considered to be a full code. The patient was complaining of cough and pleurisy according to the nursing staff. He was also having some altered mentation and he was also having a low-grade fever. He was initially taken to [facility] and following that he got moved to [facility] for further investigation and treatment. A chest x-ray that was done in Hospital showed bilateral pulmonary infiltrates consistent with pneumonia and the patient was given a dose of Rocephin and following that he was transferred here. The triple-lumen catheter was also inserted in his right femoral vein and the patient is currently on pressors at 5 g per KG per minute. The patient is currently on 100% nonrebreather facemask. He is alert. He is arousable. He is talking and following simple commands. He is profoundly weak. He just arrived to our emergency department. His white cell count is at 7. He is toxic on Coumadin with an INR of 7.5 units doesn't show any source of bleeding. He has an acute kidney injury with a creatinine of 2 with a BUN of 70. His anion gap is at 10 and his glucoses at 239. He had a CPK of 659. AST and ALP are within normal limits. Urinalysis also was done and it shows 1 WBC 3 RBCs and no bacteria. The patient received a total of 2 L of IV fluids and the 30th and was given here in the emergency department. He was started a combination of antibiotics and currently is on a combination of Zosyn and Levaquin. Is on Lovenox for DVT prophylaxis. He is on DuoNeb about treatments around the clock. IV fluids as maintenance is running at 150 mL an hour. On 12/30/2017 I'm seeing this patient for a follow-up. The patient got transferred to our facility because of pneumonia and sepsis. The patient was treated with broad-spectrum antibiotics including a combination of Zosyn and Levaquin. He was resuscitated IV fluids and currently he is normotensive and the pressors have been weaned off. The chest x-ray from today still showing bilateral pleural parenchymal changes, and I suspect some of the findings of chronic knowing that the previous CAT scan of the chest has shown some bronchiectatic changes and pleural parenchymal scarring and thickening in the right lung base. For that reason, a follow-up CAT scan of the chest will be ordered. Meanwhile, patient is much more comfortable in terms of his breathing. He is currently on high flow oxygen 6 L per minute nasal cannula and he was taken off the 100% nonrebreather facemask. He also underwent Doppler of the lower extremity that do not to be positive and the ultrasound showed a right lower extremity DVT. Noted the patient was already on anticoagulation and the patient presented with a subtherapeutic INR. He was given family grams of vitamin K to drop his INR down to 1.7. He will be restarted back on anticoagulation. Meanwhile, CAT scan of the chest be ordered to characterize the above-mentioned abnormalities and this will be a noncontrast CAT scan 9 and the patient has underlying chronic renal impairment and the patient is recovering from an acute kidney injury with a creatinine being down from 2.03-1.43. The patient clinically is alert and awake. He is, indicating. He is morbidly obese. I was told that the patient is unable to ambulate and he is essentially sedentary and his been taken care of at the medical facility in [facility]. Objective - Vital Signs Vital signs: Vital Signs Temp 97.6 F 12/30/17 11:00 Pulse 57 L 12/30/17 12:00 Resp 24 12/30/17 12:00 BP 108/52 12/30/17 12:00 Pulse Ox 93 L 12/30/17 12:00 Intake & Output 12/29/17 12/30/17 12/30/17 18:59 06:59 18:59 Intake Total 093.858 4577.5 1497.5 Output Total 775 2170 380 Balance -258.952 -182.5 1117.5 Weight 185.973 kg 176 kg 176 kg Intake: IV 450 1987.5 837.5 Magnesium Sulfate-D5w Pmx 100 1 gm In Dextrose/Water 1 100ml.bag @ 100 mls/hr IVPB Q1H [facility] Rx#: [id number] Piperacillin-Tazobactam 3 87.5 12.5 .375 gm In Dextrose/Water 1 50ml.bag @ 12.5 mls/hr IVPB Q8H [facility] Rx#: [id number] Sodium Chloride 0.9% 1, 450 1800 825 000 ml @ 150 mls/hr IV . Q6H40M [facility] Rx#:[id number] Intake, IV Titration 66.048 50 Amount Norepinephrine 16 mg In 16.048 Sodium Chloride 0.9% 250 ml @ Titrate IV .Q0M [facility] Rx#:[id number] Phytonadione 5 mg In 50 Sodium Chloride 0.9% 50 ml @ 100 mls/hr IVPB ONCE [facility] Rx#:[id number] Piperacillin-Tazobactam 3 50 .375 gm In Dextrose/Water 1 50ml.bag @ 12.5 mls/hr IVPB Q8H [facility] Rx#: [id number] Oral 610 Output: Urine 775 2170 380 Other: Voiding Method Indwelling Catheter Indwelling Catheter Indwelling Catheter - Exam Obese, the patient is currently the patient is not having any significant rest or distress and is calm and comfortable and is able to speak of. This is. Head exam was generally normal. There was no scleral icterus or corneal arcus. Mucous membranes were moist. Neck was supple and without jugular venous distension, thyromegaly, or carotid bruits. Carotids were easily palpable bilaterally. There was no adenopathy. The patient has significant crowding of the posterior oropharynx and a Mallampati class IV Lungs sounds are diminished bilaterally and the patient has bibasilar crackles heard throughout the lung mittal Cardiac exam revealed the PMI to be normally situated and sized. The rhythm was regular and no extrasystoles were noted during several minutes of auscultation. The first and second heart sounds were normal and physiologic splitting of the second heart sound was noted. There were no murmurs, rubs, clicks, or gallops. Abdomen is soft obese and nontender. No direct tenderness. No rebound tenderness. No guarding. Bowel sounds are hypoactive at the present. Extremities revealed +1 pitting edema there is no cyanosis or clubbing. Pulses are present lower extremity is bilaterally. Neurologic the patient is awake and alert and he has profound weakness in lower extremities and he is unable to ambulate and this is a chronic problem. Otherwise his neurologic exam is nonfocal. Examination of the skin revealed no evidence of significant rashes, suspicious appearing nevi or other concerning lesions. - Labs CBC & Chem 7: 12/30/17 04:38 12/30/17 04:38 Labs: Abnormal Lab Results - Last 24 Hours (Table) 12/29/17 12/29/17 12/30/17 Range/Units 18:25 20:27 04:38 RBC 3.45 L (4.30-5.90) m/uL Hgb 9.1 L (13.0-17.5) gm/dL Hct 29.9 L (39.0-53.0) % MCHC 30.5 L (31.0-37.0) g/dL RDW 18.5 H (11.5-15.5) % Lymphocytes # 0.4 L (1.0-4.8) k/uL PT (9.0-12.0) sec INR (<1.2) BUN (9-20) mg/dL Creatinine (0.66-1.25) mg/dL Glucose (74-99) mg/dL POC Glucose (mg/dL) 284 H 305 H (75-99) mg/dL Total Protein (6.3-8.2) g/dL Albumin (3.5-5.0) g/dL 12/30/17 12/30/17 12/30/17 Range/Units 04:38 04:38 07:18 RBC (4.30-5.90) m/uL Hgb (13.0-17.5) gm/dL Hct (39.0-53.0) % MCHC (31.0-37.0) g/dL RDW (11.5-15.5) % Lymphocytes # (1.0-4.8) k/uL PT 15.3 H (9.0-12.0) sec INR 1.7 H (<1.2) BUN 56 H (9-20) mg/dL Creatinine 1.43 H (0.66-1.25) mg/dL Glucose 222 H (74-99) mg/dL POC Glucose (mg/dL) 252 H (75-99) mg/dL Total Protein 5.4 L (6.3-8.2) g/dL Albumin 2.7 L (3.5-5.0) g/dL 12/30/17 Range/Units 11:58 RBC (4.30-5.90) m/uL Hgb (13.0-17.5) gm/dL Hct (39.0-53.0) % MCHC (31.0-37.0) g/dL RDW (11.5-15.5) % Lymphocytes # (1.0-4.8) k/uL PT (9.0-12.0) sec INR (<1.2) BUN (9-20) mg/dL Creatinine (0.66-1.25) mg/dL Glucose (74-99) mg/dL POC Glucose (mg/dL) 245 H (75-99) mg/dL Total Protein (6.3-8.2) g/dL Albumin (3.5-5.0) g/dL Microbiology - Last 24 Hours (Table) 12/29/17 22:52 Gram Stain - Preliminary Sputum Sputum Culture - Preliminary 12/29/17 12:32 Urine Culture - Preliminary Urine,Catheterized Assessment and Plan Plan: Assessment 1 acute hypoxic respiratory failure secondary to bilateral pneumonia. The patient presented with severe hypoxic respiratory failure and hypotension and the patient was initially on 100% nonrebreather facemask and he was weaned down to 6 L of oxygen by nasal cannula. Follow-up chest x-ray from today shows persistent infiltration and a CAT scan of the chest is to follow. Remain on examination of Zosyn and Levaquin. Currently off pressors. 2 sepsis, likely secondary to underlying pneumonia, resuscitated IV fluids and antibiotics and the patient is currently off pressors 3 acute hypotension secondary to sepsis/septic shock and the patient is currently off pressors 4 Coumadin toxicity without evidence of any bleeding. The patient's INR was as high as 7 and he received vitamin K and his INR is down to 1.7 5 chronic kidney disease, stage III, stable, with an improvement in the renal function as the patient is recovering from an acute kidney injury on top of chronic renal failure 6 chronic anemia/anemia of chronic disease 7 morbid obesity with a BMI of 48.6 8 previous history of DVT and pulmonary embolism, recurrent and the patient is a maintained on warfarin outpatient basis, and the repeat ultrasound Doppler of the lower extremity shows persistent clotting of the right lower extremity and the patient will be restarted back on his anticoagulation. 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 The patient is a resident of [facility]. Plan Continue same antibiotic coverage. Obtain CAT scan of the chest without contrast. Monitor renal function. Monitor hemodynamics. Restarted to coagulation give the patient 2.5 mg of Coumadin today to achieve an INR between 2 and 3. Keep in ICU. Wean off FiO2. We'll continue to follow.
--- NOTE | 2017-12-30 14:16 | CT ---
EXAMINATION TYPE: CT chest wo con DATE OF EXAM: 12/30/2017 COMPARISON: Prior chest x-ray 12/30/2017, chest CT 05/29/2016 HISTORY: pneumonia, pleural changes CT DLP: 1072.60 mGycm. Automated Exposure Control for Dose Reduction was Utilized. TECHNIQUE: CT scan of the thorax is performed without IV contrast. FINDINGS: Lack of intravenous contrast could compromise sensitivity. LUNGS: The lungs are remarkable for some probable dependent atelectatic changes or scarring the poste rior lung bases similar to prior exam, linear bands are present bilaterally at the posterior lung bas es. There is some airspace disease in the right upper lobe, some air bronchograms are noted. Some api tammy emphysematous changes are again seen. Vague density in the right upper lobe could represent a nod ule on axial image 13, there are hazy borders, lesion measures 6 mm MEDIASTINUM: Lack of IV contrast is noted to limit evaluation for mediastinal and especially hilar ad enopathy. There are no definitive greater than 1 cm hilar or mediastinal lymph nodes. There are clifton nary artery calcifications present. No pericardial effusion is seen. The heart is enlarged. OTHER: Abdominal aorta is aneurysmal, there is a stent graft in place. Patient is post cholecystectom y. The liver is enlarged. IMPRESSION: Correlate for pneumonia. Indeterminate pulmonary nodule, follow-up is recommended. Cardio megaly. Probable basilar scarring or atelectasis. Exam quality somewhat limited by patient body habit us, lack of contrast.
[2017-12-30] MEDS: ACETAMINOPHEN TAB 325 MG TAB PO PRN ×2 (15:55→17:14)
[2017-12-30 17:39] LABS: Glucose,Whole Blood 257 mg/dL (75-99)
[2017-12-30] MEDS ORDERED: WARFARIN 2.5 MG TAB PO ONE (18:00)
[2017-12-30 20:06] LABS: Glucose,Whole Blood 255 mg/dL (75-99)
[2017-12-30 20:06] LABS: Hemoglobin A1C 9.1 % (4.0-6.0)
[2017-12-30] MEDS: LATANOPROST 0.005% OPHTH DROPS 2.5 ML BTL BOTH EYES SCH (20:11)
[2017-12-30] MEDS: ATORVASTATIN 20 MG TAB PO SCH (20:11)
[2017-12-31] MEDS: SODIUM CHLORIDE 0.9% 1,000 ML IV SCH ×3 (04:20→15:42)
[2017-12-31] MEDS: PIPERACILLIN-TAZOBACTAM 3.375 GM in DEXTROSE/WATER 1 50ML.BAG IVPB SCH ×3 (04:20→20:23)
[2017-12-31 05:55] LABS: Glucose,Whole Blood 314 mg/dL (75-99)
[2017-12-31 06:15] LABS: Anisocytosis Slight; Basophils % (A) 0 %; Eosinophils % (A) 0 %; HCT 29.4 % (39.0-53.0); HGB 8.9 gm/dL (13.0-17.5); Hypochromasia Moderate; Lymphocytes # (A) 0.4 k/uL (1.0-4.8); Lymphocytes % (A) 5 %; MCH 26.9 pg (25.0-35.0); MCHC 30.5 g/dL (31.0-37.0); MCV 88.2 fL (80.0-100.0); Mean Platelet Volume 7.9; Monocytes # (A) 0.3 k/uL (0-1.0); Monocytes % (A) 3 %; Neutrophils # (A) 7.4 k/uL (1.3-7.7); Neutrophils % (A) 91 %; Platelet Count 226 k/uL (150-450); RBC 3.33 m/uL (4.30-5.90); RDW 18.8 % (11.5-15.5); WBC 8.1 k/uL (3.8-10.6)
[2017-12-31 06:17] LABS: INR 1.3 (<1.2); Prothrombin Time 12.6 sec (9.0-12.0)
[2017-12-31 06:20] LABS: Calcium 8.2 mg/dL (8.4-10.2); Magnesium 1.8 mg/dL (1.6-2.3); Phosphorus 2.8 mg/dL (2.5-4.5); Potassium 3.3 mmol/L (3.5-5.1)
[2017-12-31] MEDS: methylPREDNISolone SOD SUCCI 125 MG/2 ML VIAL IV SCH ×2 (06:25→12:14)
[2017-12-31] MEDS ORDERED: POTASSIUM CHLORIDE 20 MEQ in WATER FOR INJECTION 1 100ML.BAG IVPB ONE (06:36)
[2017-12-31] MEDS: INSULIN ASPART 100 UNIT/ML 1 ML 10 ML VIAL SQ SCH ×7 (06:57→21:23)
[2017-12-31] MEDS: IPRATROPIUM-ALBUTEROL 3 ML NEB INHALATION PRN ×3 (08:13→20:08)
--- NOTE | 2017-12-31 09:19 | XR ---
EXAMINATION TYPE: XR chest 1V DATE OF EXAM: 12/31/2017 COMPARISON: Prior chest x-ray and chest CT 12/30/2017 HISTORY: Congestive heart failure, pneumonia TECHNIQUE: Single frontal view of the chest is obtained. FINDINGS: Patient is rotated. Heart remains enlarged. No evident pneumothorax or pleural effusion. P atchy basilar density persists. Interstitium is increased. Moderate artery is enlarged, correlate for possible pulmonary artery hypertension. The aorta is dense. IMPRESSION: Correlate for pulmonary artery hypertension. Possible basilar atelectasis, scar, correla te to exclude pneumonia. Cardiomegaly. Rotated exam, follow-up recommended. Aortic aneurysm.
[2017-12-31] MEDS: INSULIN DETEMIR 100 UNIT/ML 10 ML VIAL SQ SCH (09:41)
[2017-12-31] MEDS: ARTIFICIAL TEARS-HYPROMELLOSE DROPS 15 ML BTL BOTH EYES SCH ×2 (09:41→20:25)
[2017-12-31] MEDS: GABAPENTIN 300 MG CAP PO SCH ×2 (09:42→20:28)
[2017-12-31] MEDS: AMIODARONE 200 MG TAB PO SCH (09:42)
[2017-12-31] MEDS: ASPIRIN 81 MG PO SCH (09:42)
[2017-12-31] MEDS: SERTRALINE 100 MG TAB PO SCH (09:42)
[2017-12-31] MEDS: PANTOPRAZOLE 40 MG/10 ML VIAL IV SCH (09:42)
[2017-12-31] MEDS: TAMSULOSIN 0.4 MG CAP.ER.24H PO SCH (09:42)
[2017-12-31] MEDS: guaiFENesin 600 MG TABLET.ER PO SCH ×2 (09:42→20:28)
[2017-12-31] MEDS: SENNOSIDES-DOCUSATE SODIUM 1 EACH TAB PO SCH ×2 (09:43→20:24)
[2017-12-31 11:41] LABS: Glucose,Whole Blood 311 mg/dL (75-99)
[2017-12-31] MEDS: FERROUS SULFATE 325 MG TAB PO SCH (12:14)
[2017-12-31] MEDS ORDERED: LEVOFLOXACIN 750MG-D5W PMX 750 MG in DEXTROSE/WATER 1 150ML.BAG IVPB SCH (13:00)
[2017-12-31] MEDS: LEVOFLOXACIN 750 MG TAB PO SCH (15:41)
--- NOTE | 2017-12-31 16:39 | P.PN ---
Subjective Progress Note Date: 12/31/17 Principal diagnosis: Acute dyspnea, chest pain, moderate to severe COPD, CHF with diastolic dysfunction This is a 82-year-old male patient was brought in from [facility] for altered mental status and hypoxemia. According to the nursing staff the patient has been having the symptoms for the past 24 hours and had been hypertensive this morning and he was brought into the emergency department for further treatment. He was oriented to person and place and time and he was considered to be a full code. The patient was complaining of cough and pleurisy according to the nursing staff. He was also having some altered mentation and he was also having a low-grade fever. He was initially taken to [facility] and following that he got moved to [facility] for further investigation and treatment. A chest x-ray that was done in Hospital showed bilateral pulmonary infiltrates consistent with pneumonia and the patient was given a dose of Rocephin and following that he was transferred here. The triple-lumen catheter was also inserted in his right femoral vein and the patient is currently on pressors at 5 g per KG per minute. The patient is currently on 100% nonrebreather facemask. He is alert. He is arousable. He is talking and following simple commands. He is profoundly weak. He just arrived to our emergency department. His white cell count is at 7. He is toxic on Coumadin with an INR of 7.5 units doesn't show any source of bleeding. He has an acute kidney injury with a creatinine of 2 with a BUN of 70. His anion gap is at 10 and his glucoses at 239. He had a CPK of 659. AST and ALP are within normal limits. Urinalysis also was done and it shows 1 WBC 3 RBCs and no bacteria. The patient received a total of 2 L of IV fluids and the 30th and was given here in the emergency department. He was started a combination of antibiotics and currently is on a combination of Zosyn and Levaquin. Is on Lovenox for DVT prophylaxis. He is on DuoNeb about treatments around the clock. IV fluids as maintenance is running at 150 mL an hour. On 12/30/2017 I'm seeing this patient for a follow-up. The patient got transferred to our facility because of pneumonia and sepsis. The patient was treated with broad-spectrum antibiotics including a combination of Zosyn and Levaquin. He was resuscitated IV fluids and currently he is normotensive and the pressors have been weaned off. The chest x-ray from today still showing bilateral pleural parenchymal changes, and I suspect some of the findings of chronic knowing that the previous CAT scan of the chest has shown some bronchiectatic changes and pleural parenchymal scarring and thickening in the right lung base. For that reason, a follow-up CAT scan of the chest will be ordered. Meanwhile, patient is much more comfortable in terms of his breathing. He is currently on high flow oxygen 6 L per minute nasal cannula and he was taken off the 100% nonrebreather facemask. He also underwent Doppler of the lower extremity that do not to be positive and the ultrasound showed a right lower extremity DVT. Noted the patient was already on anticoagulation and the patient presented with a subtherapeutic INR. He was given family grams of vitamin K to drop his INR down to 1.7. He will be restarted back on anticoagulation. Meanwhile, CAT scan of the chest be ordered to characterize the above-mentioned abnormalities and this will be a noncontrast CAT scan 9 and the patient has underlying chronic renal impairment and the patient is recovering from an acute kidney injury with a creatinine being down from 2.03-1.43. The patient clinically is alert and awake. He is, indicating. He is morbidly obese. I was told that the patient is unable to ambulate and he is essentially sedentary and his been taken care of at the medical facility in [facility]. On 12/31/2017 patient seen in follow-up. Patient is awake and alert, he is currently on 4 L per nasal cannula, and pulse ox is at 97%, this can probably be weaned further. He is normal oxygen flow is 2 L/m. Today's exam revealed some crackles at bilateral bases, no fever or chills, follow-up chest x-ray was reviewed by Dr. Stone, and showed basilar atelectasis, patchy basilar density , increased interstitium. Yesterday we obtained a CT chest and there were some chronic bronchiectatic changes and pleural parenchymal scarring and thickening in the right lung base. No ongoing fever or chills, patient is hemodynamically stable, microbiology results have been reviewed, urine and blood culture showed no growth, sputum culture showed Anika albicans. Leukocytosis, patient is currently on IV Zosyn for antibiotic coverage. Today's labs have been reviewed , renal profile is within normal limits, potassium is 3.3 this was replaced per protocol, INR is 1.3, he will be given on a dose of Coumadin 5 mg tonight. Objective - Vital Signs Vital signs: Vital Signs Temp 97.2 F L 12/31/17 12:13 Pulse 57 L 12/31/17 12:13 Resp 20 12/31/17 12:13 BP 141/71 12/31/17 12:13 Pulse Ox 97 12/31/17 12:13 Intake & Output 12/30/17 12/31/17 12/31/17 18:59 06:59 18:59 Intake Total 2647.5 1080 1328 Output Total 1100 905 Balance 1547.5 175 1328 Weight 176 kg 135.5 kg 135.5 kg Intake: IV 1587.5 600 950 Piperacillin-Tazobactam 3 12.5 50 .375 gm In Dextrose/Water 1 50ml.bag @ 12.5 mls/hr IVPB Q8H ALEXANDR Rx#: [id number] Sodium Chloride 0.9% 1, 1575 600 900 000 ml @ 150 mls/hr IV . Q6H40M ALEXANDR Rx#:[id number] Intake, IV Titration 50 Amount Piperacillin-Tazobactam 3 50 .375 gm In Dextrose/Water 1 50ml.bag @ 12.5 mls/hr IVPB Q8H ALEXANDR Rx#: [id number] Oral 1010 480 378 Output: Urine 1100 905 Other: Voiding Method Indwelling Catheter Indwelling Catheter Indwelling Catheter - Exam Obese, the patient is currently the patient is not having any significant rest or distress and is calm and comfortable and is able to speak of. This is. Head exam was generally normal. There was no scleral icterus or corneal arcus. Mucous membranes were moist. Neck was supple and without jugular venous distension, thyromegaly, or carotid bruits. Carotids were easily palpable bilaterally. There was no adenopathy. The patient has significant crowding of the posterior oropharynx and a Mallampati class IV Lungs sounds are diminished bilaterally and the patient has bibasilar crackles heard throughout the lung mittal Cardiac exam revealed the PMI to be normally situated and sized. The rhythm was regular and no extrasystoles were noted during several minutes of auscultation. The first and second heart sounds were normal and physiologic splitting of the second heart sound was noted. There were no murmurs, rubs, clicks, or gallops. Abdomen is soft obese and nontender. No direct tenderness. No rebound tenderness. No guarding. Bowel sounds are hypoactive at the present. Extremities revealed +1 pitting edema there is no cyanosis or clubbing. Pulses are present lower extremity is bilaterally. Neurologic the patient is awake and alert and he has profound weakness in lower extremities and he is unable to ambulate and this is a chronic problem. Otherwise his neurologic exam is nonfocal. Examination of the skin revealed no evidence of significant rashes, suspicious appearing nevi or other concerning lesions. - Labs CBC & Chem 7: 12/31/17 05:49 12/31/17 05:49 Labs: Abnormal Lab Results - Last 24 Hours (Table) 12/30/17 12/30/17 12/30/17 Range/Units 04:38 17:33 20:04 RBC (4.30-5.90) m/uL Hgb (13.0-17.5) gm/dL Hct (39.0-53.0) % MCHC (31.0-37.0) g/dL RDW (11.5-15.5) % Lymphocytes # (1.0-4.8) k/uL PT (9.0-12.0) sec INR (<1.2) Potassium (3.5-5.1) mmol/L BUN (9-20) mg/dL Glucose (74-99) mg/dL POC Glucose (mg/dL) 257 H 255 H (75-99) mg/dL Hemoglobin A1c 9.1 H (4.0-6.0) % Calcium (8.4-10.2) mg/dL 12/31/17 12/31/17 12/31/17 Range/Units 05:49 05:49 05:49 RBC 3.33 L (4.30-5.90) m/uL Hgb 8.9 L (13.0-17.5) gm/dL Hct 29.4 L (39.0-53.0) % MCHC 30.5 L (31.0-37.0) g/dL RDW 18.8 H (11.5-15.5) % Lymphocytes # 0.4 L (1.0-4.8) k/uL PT 12.6 H (9.0-12.0) sec INR 1.3 H (<1.2) Potassium 3.3 L (3.5-5.1) mmol/L BUN 48 H (9-20) mg/dL Glucose 286 H (74-99) mg/dL POC Glucose (mg/dL) (75-99) mg/dL Hemoglobin A1c (4.0-6.0) % Calcium 8.2 L (8.4-10.2) mg/dL 12/31/17 12/31/17 Range/Units 05:54 11:39 RBC (4.30-5.90) m/uL Hgb (13.0-17.5) gm/dL Hct (39.0-53.0) % MCHC (31.0-37.0) g/dL RDW (11.5-15.5) % Lymphocytes # (1.0-4.8) k/uL PT (9.0-12.0) sec INR (<1.2) Potassium (3.5-5.1) mmol/L BUN (9-20) mg/dL Glucose (74-99) mg/dL POC Glucose (mg/dL) 314 H 311 H (75-99) mg/dL Hemoglobin A1c (4.0-6.0) % Calcium (8.4-10.2) mg/dL Microbiology - Last 24 Hours (Table) 12/29/17 22:52 Gram Stain - Preliminary Sputum Sputum Culture - Preliminary Anika albicans 12/29/17 12:32 Urine Culture - Final Urine,Catheterized 12/29/17 16:11 Blood Culture - Preliminary Blood No Growth after 24 hours Assessment and Plan Plan: 1 acute hypoxic respiratory failure secondary to bilateral pneumonia. The patient presented with severe hypoxic respiratory failure and hypotension and the patient was initially on 100% nonrebreather facemask and he was weaned down to 6 L of oxygen by nasal cannula. Follow-up chest x-ray from today shows persistent infiltration and a CAT scan of the chest is to follow. Remain on examination of Zosyn and Levaquin. Currently off pressors. 2 sepsis, likely secondary to underlying pneumonia, resuscitated IV fluids and antibiotics and the patient is currently off pressors 3 acute hypotension secondary to sepsis/septic shock and the patient is currently off pressors 4 Coumadin toxicity without evidence of any bleeding. The patient's INR was as high as 7 and he received vitamin K and his INR is down to 1.7 5 chronic kidney disease, stage III, stable, with an improvement in the renal function as the patient is recovering from an acute kidney injury on top of chronic renal failure 6 chronic anemia/anemia of chronic disease 7 morbid obesity with a BMI of 48.6 8 previous history of DVT and pulmonary embolism, recurrent and the patient is a maintained on warfarin outpatient basis, and the repeat ultrasound Doppler of the lower extremity shows persistent clotting of the right lower extremity and the patient will be restarted back on his anticoagulation. 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 The patient is a resident of [facility]. Plan: We'll decrease the Solu-Medrol to 40 mg every 8 hours, continue current antibiotic coverage. Give the patient additional dose of Coumadin 5 mg tonight. repeat PT/INR I performed a history & physical examination of the patient and discussed their management with my nurse practitioner, Kim Patel. I reviewed the nurse practitioner's note and agree with the documented findings and plan of care. Lung sounds are positive for diffuse wheezes throughout the lung mittal. The findings and the impression was discussed with the patient. I attest to the documentation by the nurse practitioner. Time with Patient: Less than 30
[2017-12-31 17:03] LABS: Glucose,Whole Blood 337 mg/dL (75-99)
[2017-12-31] MEDS: WARFARIN 5 MG TAB PO SCH (17:45)
[2017-12-31] MEDS: methylPREDNISolone SOD SUCCI 40 MG/ML 1 ML VIAL IV SCH ×2 (17:47→23:02)
[2017-12-31] MEDS ORDERED: MAG HYDROX/AL HYDROX/SIMETH 30 ML CUP PO PRN (18:30)
--- NOTE | 2017-12-31 19:59 | PN ---
PROGRESS NOTE I am covering for Dr. Piper. This 82-year-old gentleman who was admitted with bilateral pneumonia, acute hypoxic respiratory failure, also had COPD exacerbation as well as some COPD exacerbation as well. The patient also had features of sepsis and hypotension. The patient has been closely monitored. The CT scan showed multiple infiltrates, suggestive of pneumonia. Chest x-ray is being closely monitored. Multiple consultants including pulmonary are following the patient closely. PAST MEDICAL HISTORY: Reviewed. REVIEW OF SYSTEMS: CARDIOVASCULAR: No angina. RESPIRATORY: As mentioned earlier. GI: No nausea. : No dysuria. NERVOUS SYSTEM: As mentioned earlier. CURRENT MEDICATIONS: 1. Tylenol 650 p.o. t.i.d. 2. DuoNeb q.i.d. and p.r.n. 3. Cordarone 200 mg p.o. daily. 4. Artificial Tears drops. 5. Aspirin 81 mg. 6. Lipitor 20 mg q.h.s. 7. Duragesic patch. 8. Iron sulfate 325 mg daily. 9. Neurontin 300 mg p.o. b.i.d. 10.Mucinex 60 mg p.o. b.i.d. 11.Proctozone 1 application daily. 12.NovoLog before meals and at bedtime. 13.NovoLog scale. 14.Levemir 60 units subcu q.a.m. 15.Xalatan 0.05 1 drop both eyes. 16.Levaquin 750 mg q.24 hours. 17.Solu-Medrol 40 IV q.8h. 19.Narcan. 20.Levophed. 21.Protonix. 22.Zosyn. 23.Senokot. 24.Zoloft. 25.Flomax. 26.Coumadin. PHYSICAL EXAM: Patient is alert, oriented x2. Pulse is 56. Blood pressure 141/70, respiration 20, temperature 97.8, pulse ox 97% on 4 L. HEENT: Conjunctivae normal. Oral mucosa moist. Neck is no jugular venous distention. No carotid bruit. No lymph node enlargement. CARDIOVASCULAR: S1, S2. RESPIRATORY: Breath sounds diminished in the bases. A few scattered rhonchi and crackles. ABDOMEN: Soft, nontender. LEGS: No edema. NERVOUS SYSTEM: Diffusely weak. LABS: WBC 8.1, hemoglobin is 8.9. INR is 1.2. Sodium 137, potassium 3.8, glucose of 311. ASSESSMENT: 1. Bilateral pneumonia possibly gram-negative with sepsis and hypotension and septic shock. 2. Acute hypoxic respiratory failure secondary to pneumonia. 3. Coumadin toxicity. 4. Chronic anemia. 5. Right DVT history. 6. History of pulmonary embolus. 7. History of benign prostatic hypertrophy. 8. History of chronic obstructive pulmonary disease. 9. Hypertension. 10.History of iron deficiency anemia. 11.History of coronary artery disease. 12.History of gout. 13.Chronic constipation. 14.Impaired hearing. 15.Hyperlipidemia. 16.History of depression. 17.Glaucoma. 18.Diabetes mellitus type 2. 19.History of aortic aneurysm with stent. 20.FULL CODE. RECOMMENDATIONS AND DISCUSSION: This 82-year-old gentleman presented with multiple complex medical issues, we will monitor the patient closely. Continue the current management and symptomatic treatment. I recommend to continue with broad-spectrum IV antibiotics, bronchodilators and steroids, which is being tapered off. Also recommend PT, OT evaluation, possible ECF rehab to [facility] also. Prognosis guarded because of multiple complex medical issues. See orders for details. Further recommendations to follow. Repeat labs have been ordered. Medication reconciliation was done. The patient is currently on Coumadin also and the PT/INR also will be continued to be monitored. MMODL / IJN: [id number] / DEV
[2017-12-31] MEDS: BUDESONIDE 0.5 MG/2 ML NEBU INHALATION SCH (20:08)
[2017-12-31] MEDS: LATANOPROST 0.005% OPHTH DROPS 2.5 ML BTL BOTH EYES SCH (20:24)
[2017-12-31] MEDS: ATORVASTATIN 20 MG TAB PO SCH (20:24)
[2017-12-31] MEDS: MELATONIN 5 MG TABLET PO SCH (20:25)
[2017-12-31] MEDS: ALLOPURINOL 300 MG TAB PO SCH (20:25)
[2017-12-31 21:06] LABS: Glucose,Whole Blood 362 mg/dL (75-99)
[2018-01-01] MEDS: PIPERACILLIN-TAZOBACTAM 3.375 GM in DEXTROSE/WATER 1 50ML.BAG IVPB SCH ×3 (04:28→19:54)
[2018-01-01 06:19] LABS: Glucose,Whole Blood 359 mg/dL (75-99)
[2018-01-01] MEDS: INSULIN ASPART 100 UNIT/ML 1 ML 10 ML VIAL SQ SCH ×7 (06:56→21:47)
[2018-01-01 07:10] LABS: Anisocytosis Slight; Basophils % (A) 0 %; Eosinophils % (A) 0 %; HCT 29.3 % (39.0-53.0); HGB 9.5 gm/dL (13.0-17.5); Hypochromasia Slight; Lymphocytes # (A) 0.5 k/uL (1.0-4.8); Lymphocytes % (A) 6 %; MCH 28.1 pg (25.0-35.0); MCHC 32.6 g/dL (31.0-37.0); MCV 86.1 fL (80.0-100.0); Mean Platelet Volume 7.6; Monocytes # (A) 0.4 k/uL (0-1.0); Monocytes % (A) 4 %; Neutrophils # (A) 7.7 k/uL (1.3-7.7); Neutrophils % (A) 89 %; Platelet Count 229 k/uL (150-450); RDW 18.7 % (11.5-15.5); WBC 8.7 k/uL (3.8-10.6)
[2018-01-01 07:14] LABS: INR 1.6 (<1.2); Prothrombin Time 14.4 sec (9.0-12.0)
[2018-01-01 07:26] LABS: Calcium 8.4 mg/dL (8.4-10.2); Magnesium 1.8 mg/dL (1.6-2.3); Phosphorus 2.2 mg/dL (2.5-4.5)
[2018-01-01] MEDS: BUDESONIDE 0.5 MG/2 ML NEBU INHALATION SCH ×2 (08:27→21:41)
[2018-01-01] MEDS: IPRATROPIUM-ALBUTEROL 3 ML NEB INHALATION PRN ×2 (08:27→11:49)
[2018-01-01] MEDS ORDERED: NON-FORMULARY DRUG (Omeprazole [Omeprazole] 20 MG) PO SCH (09:00)
[2018-01-01] MEDS: MONTELUKAST 10 MG TAB PO SCH (10:04)
[2018-01-01] MEDS: PANTOPRAZOLE 40 MG/10 ML VIAL IV SCH (10:05)
[2018-01-01] MEDS: guaiFENesin 600 MG TABLET.ER PO SCH ×2 (10:05→19:54)
[2018-01-01] MEDS: methylPREDNISolone SOD SUCCI 40 MG/ML 1 ML VIAL IV SCH ×2 (10:05→15:16)
[2018-01-01] MEDS: TAMSULOSIN 0.4 MG CAP.ER.24H PO SCH (10:05)
[2018-01-01] MEDS: SENNOSIDES-DOCUSATE SODIUM 1 EACH TAB PO SCH ×2 (10:06→19:54)
[2018-01-01] MEDS: GABAPENTIN 300 MG CAP PO SCH ×2 (10:06→19:54)
[2018-01-01] MEDS: AMIODARONE 200 MG TAB PO SCH (10:06)
[2018-01-01] MEDS: ASPIRIN 81 MG PO SCH (10:06)
[2018-01-01] MEDS: SERTRALINE 100 MG TAB PO SCH (10:07)
[2018-01-01] MEDS: INSULIN DETEMIR 100 UNIT/ML 10 ML VIAL SQ SCH (10:13)
[2018-01-01] MEDS: FERROUS SULFATE 325 MG TAB PO SCH (12:00)
[2018-01-01 12:18] LABS: Glucose,Whole Blood 290 mg/dL (75-99)
[2018-01-01] MEDS ORDERED: INSULIN DETEMIR 100 UNIT/ML 10 ML VIAL SQ ONE (13:00)
--- NOTE | 2018-01-01 13:59 | P.PN ---
Subjective Progress Note Date: 01/01/18 I'm dictating for Dr. Escobar Interval history : Maximino Gasca is a 82 year old man was transfered from [facility]. [facility]. Family states he has had a cough for about 10 days with decreasing mentation. Patient is bedbound at home. Hx of COPD and abd aneurysm.Hx of DVT on coumadin toxic at 7.5. Patient presently is on levaphed for hypotension . Has been evaluated by Dr Stone. Patient has not been seen by family physician for 2 years. Patient is admitted to inpatient unit and has had pulmonary consultation. Patient is started on IV antibiotic. Patient is seen and examined this morning. He is laying in bed. He is using oxygen per nasal cannula. He is complained of increased cough with sputum infection. Patient is on IV antibiotics Zosyn. Patient was started on IV steroid, nebulized bronchodilators along with his call medications. Review of systems: CONSTITUTIONAL: No fever chills or diaphoresis HEENT: Normocephalic. CARDIOVASCULAR: No chest pain, S1-S2 regular rate and rhythm PULMONARY: Lung sounds are diminished with expiratory wheezing and scattered rhonchi. GASTROINTESTINAL: No diarrhea, no nausea, no vomiting, no abdominal pain. Normoactive bowel sounds. Complained of constipation for NEUROLOGICAL: oriented 3 no focal deficit noted. GENITOURINARY: Indwelling Schmidt catheter to draining yellow urine. MUSCULOSKELETAL/RHEUMATOLOGICAL: 1-2+ lower extremity edema, peripheral pulses 2 + bilaterally. PSYCHIATRIC: No anxiety, no depression The rest of the 14 point review of systems is negative Objective - Vital Signs Vital signs: Vital Signs Temp 97.0 F L 01/01/18 11:42 Pulse 56 L 01/01/18 12:00 Resp 16 01/01/18 11:42 BP 124/61 01/01/18 11:42 Pulse Ox 95 01/01/18 11:42 Intake & Output 12/31/17 01/01/18 01/01/18 18:59 06:59 18:59 Intake Total 1706 240 318 Output Total 800 1200 Balance 906 -960 318 Weight 135.5 kg 134.6 kg Intake: IV 950 Piperacillin-Tazobactam 3 50 .375 gm In Dextrose/Water 1 50ml.bag @ 12.5 mls/hr IVPB Q8H [facility] Rx#: [id number] Sodium Chloride 0.9% 1, 900 000 ml @ 150 mls/hr IV . Q6H40M [facility] Rx#:[id number] Oral 756 240 318 Output: Urine 800 1200 Other: Voiding Method Indwelling Catheter Indwelling Catheter - Exam PHYSICAL EXAM: GENERAL: HEENT: Conjunctivae normal. eyes normal. NECK: No JVD. Supple CARDIOVASCULAR: S1, S2 muffled. No murmur RESPIRATION: Breath sounds diminished with expiratory wheezing ABDOMEN: Obese Soft, nontender . .Bowel sounds heard. LEGS: No edema. no swelling PSYCHIATRY: Alert and oriented 3, mood and affect normal. NERVOUS SYSTEM: . Diffuse weakness No focal deficits. Skin: no ulcer no rash Joints: No active swelling. No inflammation. Active Medications Acetaminophen (Tylenol Tab) 650 mg PO TID PRN PRN Reason: Mild Pain Last Admin: 12/30/17 15:55 Dose: 650 mg Al Hydroxide/Mg Hydroxide (Maalox) 30 ml PO Q4H PRN PRN Reason: GI Upset Albuterol/Ipratropium (Duoneb 0.5 Mg-3 Mg/3 Ml Soln) 3 ml INHALATION RT-Q4H PRN PRN Reason: Shortness Of Breath Or Wheezing Last Admin: 01/01/18 11:49 Dose: 3 ml Allopurinol (Zyloprim) 300 mg PO [facility] Last Admin: 12/31/17 20:25 Dose: 300 mg Amiodarone HCl (Cordarone) 200 mg PO DAILY [facility] Last Admin: 01/01/18 10:06 Dose: 200 mg Artificial Tears (Artificial Tear Drops) 1 drops BOTH EYES BID [facility] Last Admin: 12/31/17 20:25 Dose: Not Given Aspirin (Aspirin) 81 mg PO DAILY [facility] Last Admin: 01/01/18 10:06 Dose: 81 mg Atorvastatin Calcium (Lipitor) 20 mg PO HS [facility] Last Admin: 12/31/17 20:24 Dose: 20 mg Budesonide (Pulmicort) 0.5 mg INHALATION RT-BID [facility] Last Admin: 01/01/18 08:27 Dose: 0.5 mg Fentanyl (Duragesic 100mcg/Hr Patch) 1 patch TRANSDERM Q72H [facility] Last Admin: 12/30/17 12:23 Dose: 1 patch Ferrous Sulfate (Feosol) 325 mg PO DAILY@1200 [facility] Last Admin: 12/31/17 12:14 Dose: 325 mg Gabapentin (Neurontin) 300 mg PO BID [facility] Last Admin: 01/01/18 10:06 Dose: 300 mg Guaifenesin (Mucinex) 600 mg PO Q12H [facility] Last Admin: 01/01/18 10:05 Dose: 600 mg Hydrocortisone (Proctosol-Hc 2.5%) 1 applic RECTAL TID PRN PRN Reason: INFLAMED HERORRHOIDS Piperacillin/Tazobactam/ (Dextrose 3.375 gm/ IV Solution) 50 mls @ 12.5 mls/hr IVPB Q8H [facility] Last Admin: 01/01/18 04:28 Dose: 12.5 mls/hr Sodium Chloride (Saline 0.9%) 1,000 mls @ 20 mls/hr IV .Q24H [facility] Last Admin: 12/31/17 15:42 Dose: 20 mls/hr Insulin Aspart (Novolog) 0 unit SQ ACHS [facility]; Protocol Last Admin: 01/01/18 12:46 Dose: 5 unit Insulin Aspart (Novolog) 10 unit SQ AC-TID [facility] Last Admin: 01/01/18 12:46 Dose: 10 unit Insulin Detemir (Levemir) 24 unit SQ QAM [facility] Latanoprost (Xalatan 0.005%) 1 drops BOTH EYES [facility] Last Admin: 12/31/17 20:24 Dose: 1 drops Levofloxacin (Levaquin) 750 mg PO Q24H [facility] Last Admin: 12/31/17 15:41 Dose: 750 mg Magnesium Hydroxide (Milk Of Magnesia) 2,400 mg PO DAILY PRN PRN Reason: Constipation Melatonin (Melatonin) 5 mg PO [facility] Last Admin: 12/31/17 20:25 Dose: 5 mg Methylprednisolone Sodium Succinate (Solu-Medrol) 40 mg IV Q8HR [facility] Last Admin: 01/01/18 10:05 Dose: 40 mg Miscellaneous Information (Magnesium Per Protocol) 1 each MISCELLANE DAILY PRN ; Protocol PRN Reason: Per Protocol Miscellaneous Information (Potassium Per Protocol) 1 each MISCELLANE DAILY PRN ; Protocol PRN Reason: Per Protocol Montelukast Sodium (Singulair) 10 mg PO DAILY [facility] Last Admin: 01/01/18 10:04 Dose: 10 mg Naloxone HCl (Narcan) 0.2 mg IV Q2M PRN PRN Reason: Opioid Reversal Pantoprazole Sodium (Protonix) 40 mg IV DAILY [facility] Last Admin: 01/01/18 10:05 Dose: 40 mg Senna/Docusate Sodium (Senokot-S) 2 each PO BID [facility] Last Admin: 01/01/18 10:06 Dose: 2 each Sertraline HCl (Zoloft) 100 mg PO DAILY [facility] Last Admin: 01/01/18 10:07 Dose: 100 mg Silver Sulfadiazine (Silvadene Cream) 1 applic TOPICAL BID [facility] Last Admin: 12/31/17 20:28 Dose: Not Given Tamsulosin HCl (Flomax) 0.4 mg PO DAILY [facility] Last Admin: 01/01/18 10:05 Dose: 0.4 mg Warfarin Sodium (Coumadin) 5 mg PO DAILY@1800 [facility] Last Admin: 12/31/17 17:45 Dose: 5 mg - Labs CBC & Chem 7: 01/01/18 06:15 01/01/18 06:15 Labs: Abnormal Lab Results - Last 24 Hours (Table) 12/31/17 12/31/17 01/01/18 Range/Units 16:46 21:04 06:15 RBC 3.40 L (4.30-5.90) m/uL Hgb 9.5 L (13.0-17.5) gm/dL Hct 29.3 L (39.0-53.0) % RDW 18.7 H (11.5-15.5) % Lymphocytes # 0.5 L (1.0-4.8) k/uL PT (9.0-12.0) sec INR (<1.2) BUN (9-20) mg/dL Glucose (74-99) mg/dL POC Glucose (mg/dL) 337 H 362 H (75-99) mg/dL Phosphorus (2.5-4.5) mg/dL 01/01/18 01/01/18 01/01/18 Range/Units 06:15 06:15 06:18 RBC (4.30-5.90) m/uL Hgb (13.0-17.5) gm/dL Hct (39.0-53.0) % RDW (11.5-15.5) % Lymphocytes # (1.0-4.8) k/uL PT 14.4 H (9.0-12.0) sec INR 1.6 H (<1.2) BUN 53 H (9-20) mg/dL Glucose 284 H (74-99) mg/dL POC Glucose (mg/dL) 359 H (75-99) mg/dL Phosphorus 2.2 L (2.5-4.5) mg/dL 01/01/18 Range/Units 12:02 RBC (4.30-5.90) m/uL Hgb (13.0-17.5) gm/dL Hct (39.0-53.0) % RDW (11.5-15.5) % Lymphocytes # (1.0-4.8) k/uL PT (9.0-12.0) sec INR (<1.2) BUN (9-20) mg/dL Glucose (74-99) mg/dL POC Glucose (mg/dL) 290 H (75-99) mg/dL Phosphorus (2.5-4.5) mg/dL Microbiology - Last 24 Hours (Table) 12/29/17 16:11 Blood Culture - Preliminary Blood No Growth after 48 hours 12/29/17 22:52 Gram Stain - Preliminary Sputum Sputum Culture - Preliminary Anika albicans Assessment and Plan Assessment: acute respiratory failure secondary to pneumonia sepsis secondary to pneumonia acute hypotension secondary to sepsis, coumadin toxcity, improving chronic kidney disease stage III chronic anemia secodary to chronic disease morbid obesity BMI 48.6 hx of DVT and PE on coumadin BPH COPD hypertension iron def anemia CAD gout chronic constipation impaired hearing hyperlipemia depression glaucoma DM II aortic aneurysm with stent graft Plan: We'll continue current medication and Fertig in the form of Zosyn as well as Levaquin. Continue nebulized as well as systemic steroid, nebulized bronchodilators. His blood sugars are uncontrolled secondary to IV steroid insulin dose has been readjusted. Monitor blood sugar before meals and at bedtime with sliding scale coverage. patient did complain of constipation will gave to collects apart circuitry along with a stool softener . Patient has a stage II decubitus ulcer few of them unstageable on his buttocks which was present on admission, wound and/or semi-care consult requested. Monitor patient closely continue GI and DVT prophylaxis. Prognosis is court-ordered due to multiple complex medical problems. Further plans based on his clinical course. Discussed plan of care with patient and family The impression and plan of care has been dictated as directed. : I performed a history and examination of this patient, discussed the same with the dictator. I agree with the dictator's note ,documented as a scribe. Any additional findings or plans will be noted.
[2018-01-01] MEDS ORDERED: BISACODYL 10 MG SUPP RECTAL SCH (14:00)
[2018-01-01] MEDS: ARTIFICIAL TEARS-HYPROMELLOSE DROPS 15 ML BTL BOTH EYES SCH ×2 (15:13→19:55)
[2018-01-01] MEDS: LEVOFLOXACIN 750 MG TAB PO SCH (15:14)
--- NOTE | 2018-01-01 15:30 | P.PN ---
Subjective Progress Note Date: 01/01/18 Principal diagnosis: Acute exacerbation of moderate to severe chronic obstructive pulmonary disease and, acute exacerbation of diastolic congestive heart failure. This is a 82-year-old male patient [facility] altered mental status and hypoxemia. According to the nursing staff the patient has been having the symptoms for the past 24 hours and had been hypertensive this morning and he was brought into the emergency department for further treatment. He was oriented to person and place and time and he was considered to be a full code. The patient was complaining of cough and pleurisy according to the nursing staff. He was also having some altered mentation and he was also having a low-grade fever. He was initially taken to [facility] and following that he got moved to [facility] for further investigation and treatment. A chest x-ray that was done in Hospital showed bilateral pulmonary infiltrates consistent with pneumonia and the patient was given a dose of Rocephin and following that he was transferred here. The triple-lumen catheter was also inserted in his right femoral vein and the patient is currently on pressors at 5 g per KG per minute. The patient is currently on 100% nonrebreather facemask. He is alert. He is arousable. He is talking and following simple commands. He is profoundly weak. He just arrived to our emergency department. His white cell count is at 7. He is toxic on Coumadin with an INR of 7.5 units doesn't show any source of bleeding. He has an acute kidney injury with a creatinine of 2 with a BUN of 70. His anion gap is at 10 and his glucoses at 239. He had a CPK of 659. AST and ALP are within normal limits. Urinalysis also was done and it shows 1 WBC 3 RBCs and no bacteria. The patient received a total of 2 L of IV fluids and the 30th and was given here in the emergency department. He was started a combination of antibiotics and currently is on a combination of Zosyn and Levaquin. Is on Lovenox for DVT prophylaxis. He is on DuoNeb about treatments around the clock. IV fluids as maintenance is running at 150 mL an hour. On 12/30/2017 I'm seeing this patient for a follow-up. The patient got transferred to our facility because of pneumonia and sepsis. The patient was treated with broad-spectrum antibiotics including a combination of Zosyn and Levaquin. He was resuscitated IV fluids and currently he is normotensive and the pressors have been weaned off. The chest x-ray from today still showing bilateral pleural parenchymal changes, and I suspect some of the findings of chronic knowing that the previous CAT scan of the chest has shown some bronchiectatic changes and pleural parenchymal scarring and thickening in the right lung base. For that reason, a follow-up CAT scan of the chest will be ordered. Meanwhile, patient is much more comfortable in terms of his breathing. He is currently on high flow oxygen 6 L per minute nasal cannula and he was taken off the 100% nonrebreather facemask. He also underwent Doppler of the lower extremity that do not to be positive and the ultrasound showed a right lower extremity DVT. Noted the patient was already on anticoagulation and the patient presented with a subtherapeutic INR. He was given family grams of vitamin K to drop his INR down to 1.7. He will be restarted back on anticoagulation. Meanwhile, CAT scan of the chest be ordered to characterize the above-mentioned abnormalities and this will be a noncontrast CAT scan 9 and the patient has underlying chronic renal impairment and the patient is recovering from an acute kidney injury with a creatinine being down from 2.03-1.43. The patient clinically is alert and awake. He is, indicating. He is morbidly obese. I was told that the patient is unable to ambulate and he is essentially sedentary and his been taken care of at the medical facility in [facility]. On 12/31/2017 patient seen in follow-up. Patient is awake and alert, he is currently on 4 L per nasal cannula, and pulse ox is at 97%, this can probably be weaned further. He is normal oxygen flow is 2 L/m. Today's exam revealed some crackles at bilateral bases, no fever or chills, follow-up chest x-ray was reviewed by Dr. Stone, and showed basilar atelectasis, patchy basilar density , increased interstitium. Yesterday we obtained a CT chest and there were some chronic bronchiectatic changes and pleural parenchymal scarring and thickening in the right lung base. No ongoing fever or chills, patient is hemodynamically stable, microbiology results have been reviewed, urine and blood culture showed no growth, sputum culture showed Anika albicans. Leukocytosis, patient is currently on IV Zosyn for antibiotic coverage. Today's labs have been reviewed , renal profile is within normal limits, potassium is 3.3 this was replaced per protocol, INR is 1.3, he will be given on a dose of Coumadin 5 mg tonight. The patient is seen again today 11/01/2017 in follow-up on the selective care unit. He is currently resting quite comfortably in bed. He denies any worsening shortness of breath. He has a loose nonproductive cough. No chills or night sweats. He is currently maintaining good O2 saturations in the mid 90s on room air. He's been afebrile. Hemodynamically stable. Sputum culture positive for Anika only. Blood culture no growth. Urine culture no growth. White count 8.7. Hemoglobin 9.5. INR 1.6. Creatinine 1.18. Currently in a negative balance. Objective - Vital Signs Vital signs: Vital Signs Temp 97.2 F L 01/01/18 14:57 Pulse 50 L 01/01/18 15:02 Resp 18 01/01/18 15:02 BP 132/62 01/01/18 14:57 Pulse Ox 95 01/01/18 14:57 Intake & Output 12/31/17 01/01/18 01/01/18 18:59 06:59 18:59 Intake Total 1706 240 953 Output Total 800 1200 Balance 906 -960 953 Weight 135.5 kg 134.6 kg Intake: IV 950 60 Invasive Line 4 10 Piperacillin-Tazobactam 3 50 50 .375 gm In Dextrose/Water 1 50ml.bag @ 12.5 mls/hr IVPB Q8H [facility] Rx#: [id number] Sodium Chloride 0.9% 1, 900 000 ml @ 150 mls/hr IV . Q6H40M [facility] Rx#:[id number] Intake, IV Titration 130 Amount Sodium Chloride 0.9% 1, 130 000 ml @ 20 mls/hr IV . Q24H [facility] Rx#:[id number] Oral 756 240 763 Output: Urine 800 1200 Other: Voiding Method Indwelling Catheter Indwelling Catheter Indwelling Catheter - Exam - Exam Obese, the patient is currently the patient is not having any significant shortness of breath and is calm and comfortable. Head exam was generally normal. There was no scleral icterus or corneal arcus. Mucous membranes were moist. Neck was supple and without jugular venous distension, thyromegaly, or carotid bruits. Carotids were easily palpable bilaterally. There was no adenopathy. The patient has significant crowding of the posterior oropharynx and a Mallampati class IV Lungs sounds are diminished bilaterally and the patient has bibasilar crackles heard throughout the lung mittal Cardiac exam revealed the PMI to be normally situated and sized. The rhythm was regular and no extrasystoles were noted during several minutes of auscultation. The first and second heart sounds were normal and physiologic splitting of the second heart sound was noted. There were no murmurs, rubs, clicks, or gallops. Abdomen is soft obese and nontender. No direct tenderness. No rebound tenderness. No guarding. Bowel sounds are present. Extremities revealed +1 pitting edema there is no cyanosis or clubbing. Pulses are present lower extremity is bilaterally. Neurologic the patient is awake and alert and he has profound weakness in lower extremities and he is unable to ambulate and this is a chronic problem. Otherwise his neurologic exam is nonfocal. Examination of the skin revealed no evidence of significant rashes, suspicious appearing nevi or other concerning lesions. - Labs CBC & Chem 7: 01/01/18 06:15 01/01/18 06:15 Labs: Abnormal Lab Results - Last 24 Hours (Table) 12/31/17 12/31/17 01/01/18 Range/Units 16:46 21:04 06:15 RBC 3.40 L (4.30-5.90) m/uL Hgb 9.5 L (13.0-17.5) gm/dL Hct 29.3 L (39.0-53.0) % RDW 18.7 H (11.5-15.5) % Lymphocytes # 0.5 L (1.0-4.8) k/uL PT (9.0-12.0) sec INR (<1.2) BUN (9-20) mg/dL Glucose (74-99) mg/dL POC Glucose (mg/dL) 337 H 362 H (75-99) mg/dL Phosphorus (2.5-4.5) mg/dL 01/01/18 01/01/18 01/01/18 Range/Units 06:15 06:15 06:18 RBC (4.30-5.90) m/uL Hgb (13.0-17.5) gm/dL Hct (39.0-53.0) % RDW (11.5-15.5) % Lymphocytes # (1.0-4.8) k/uL PT 14.4 H (9.0-12.0) sec INR 1.6 H (<1.2) BUN 53 H (9-20) mg/dL Glucose 284 H (74-99) mg/dL POC Glucose (mg/dL) 359 H (75-99) mg/dL Phosphorus 2.2 L (2.5-4.5) mg/dL 01/01/18 Range/Units 12:02 RBC (4.30-5.90) m/uL Hgb (13.0-17.5) gm/dL Hct (39.0-53.0) % RDW (11.5-15.5) % Lymphocytes # (1.0-4.8) k/uL PT (9.0-12.0) sec INR (<1.2) BUN (9-20) mg/dL Glucose (74-99) mg/dL POC Glucose (mg/dL) 290 H (75-99) mg/dL Phosphorus (2.5-4.5) mg/dL Microbiology - Last 24 Hours (Table) 12/29/17 16:11 Blood Culture - Preliminary Blood No Growth after 48 hours 12/29/17 22:52 Gram Stain - Preliminary Sputum Sputum Culture - Preliminary Anika albicans Assessment and Plan Assessment: Plan: 1 acute hypoxic respiratory failure secondary to bilateral pneumonia. The patient presented with severe hypoxic respiratory failure and hypotension and the patient was initially on 100% nonrebreather facemask and he was weaned down to 6 L of oxygen by nasal cannula. Follow-up chest x-ray from today shows persistent infiltration and a CAT scan of the chest shows evidence of pneumonia. Interim determine if pulmonary nodule. Cardiomegaly with basilar atelectasis. Remain on examination of Zosyn and Levaquin. 2 sepsis, likely secondary to underlying pneumonia, resuscitated IV fluids and antibiotics and the patient is currently off pressors, improved. 3 acute hypotension secondary to sepsis/septic shock and the patient is currently off pressors recovered. 4 Coumadin toxicity without evidence of any bleeding. The patient's INR was as high as 7 and he received vitamin K and his INR is down to 1.6 5 chronic kidney disease, stage III, stable, with an improvement in the renal function as the patient is recovering from an acute kidney injury on top of chronic renal failure 6 chronic anemia/anemia of chronic disease 7 morbid obesity with a BMI of 48.6 8 previous history of DVT and pulmonary embolism, recurrent and the patient is a maintained on warfarin outpatient basis, and the repeat ultrasound Doppler of the lower extremity shows persistent clotting of the right lower extremity and the patient will be restarted back on his anticoagulation. 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 The patient is a resident of [facility]. Plan: The patient was seen and evaluated by Dr. Stone. He is improving daily. Currently without significant shortness of breath. Tinea good O2 saturations in the mid 90s on room air now. He's been afebrile. Blood and typically stable. Continue with his current treatment plan. Continue to follow. I, the cosigning physician, performed a history & physical examination of the patient. Lungs sounds scattered rhonchi, crackles in the posterior bases. Maintaining good O2 saturations in the 90s on room air. I discussed the assessment and plan of care with my nurse practitioner, Zeny Richards. I attest to the above note as dictated by her.
[2018-01-01] MEDS: SODIUM CHLORIDE 0.9% 1,000 ML IV SCH (17:17)
[2018-01-01 17:18] LABS: Glucose,Whole Blood 334 mg/dL (75-99)
[2018-01-01] MEDS: WARFARIN 5 MG TAB PO SCH (17:21)
[2018-01-01] MEDS: MELATONIN 5 MG TABLET PO SCH (19:54)
[2018-01-01] MEDS: ALLOPURINOL 300 MG TAB PO SCH (19:54)
[2018-01-01] MEDS: LATANOPROST 0.005% OPHTH DROPS 2.5 ML BTL BOTH EYES SCH (19:55)
[2018-01-01] MEDS: ATORVASTATIN 20 MG TAB PO SCH (19:55)
[2018-01-01 20:53] LABS: Glucose,Whole Blood 295 mg/dL (75-99)
[2018-01-02] MEDS: methylPREDNISolone SOD SUCCI 40 MG/ML 1 ML VIAL IV SCH ×3 (00:35→16:20)
[2018-01-02] MEDS: PIPERACILLIN-TAZOBACTAM 3.375 GM in DEXTROSE/WATER 1 50ML.BAG IVPB SCH ×3 (04:00→21:38)
[2018-01-02 06:09] LABS: Glucose,Whole Blood 237 mg/dL (75-99)
[2018-01-02] MEDS: INSULIN ASPART 100 UNIT/ML 1 ML 10 ML VIAL SQ SCH ×7 (07:01→22:45)
[2018-01-02 07:07] LABS: Anisocytosis Slight; Basophils # (A) 0.1 k/uL (0-0.2); Basophils % (A) 1 %; Eosinophils % (A) 0 %; HCT 31.9 % (39.0-53.0); HGB 9.8 gm/dL (13.0-17.5); Hypochromasia Moderate; Lymphocytes # (A) 0.7 k/uL (1.0-4.8); Lymphocytes % (A) 7 %; MCH 26.8 pg (25.0-35.0); MCHC 30.8 g/dL (31.0-37.0); MCV 87.1 fL (80.0-100.0); Monocytes # (A) 0.5 k/uL (0-1.0); Monocytes % (A) 5 %; Neutrophils # (A) 8.7 k/uL (1.3-7.7); Neutrophils % (A) 86 %; Platelet Count 295 k/uL (150-450); RBC 3.66 m/uL (4.30-5.90); RDW 18.7 % (11.5-15.5); WBC 10.1 k/uL (3.8-10.6)
[2018-01-02 07:14] LABS: INR 2.1 (<1.2)
[2018-01-02 07:27] LABS: Calcium 8.6 mg/dL (8.4-10.2); Magnesium 1.8 mg/dL (1.6-2.3); Potassium 4.5 mmol/L (3.5-5.1)
[2018-01-02] MEDS: BUDESONIDE 0.5 MG/2 ML NEBU INHALATION SCH ×2 (07:42→19:52)
[2018-01-02] MEDS: IPRATROPIUM-ALBUTEROL 3 ML NEB INHALATION PRN ×4 (07:42→19:52)
[2018-01-02] MEDS: guaiFENesin 600 MG TABLET.ER PO SCH ×2 (08:00→21:23)
[2018-01-02] MEDS: SENNOSIDES-DOCUSATE SODIUM 1 EACH TAB PO SCH ×2 (08:00→21:24)
[2018-01-02] MEDS: SERTRALINE 100 MG TAB PO SCH (08:00)
[2018-01-02] MEDS: PANTOPRAZOLE 40 MG/10 ML VIAL IV SCH (08:01)
[2018-01-02] MEDS: AMIODARONE 200 MG TAB PO SCH (08:01)
[2018-01-02] MEDS: MONTELUKAST 10 MG TAB PO SCH (08:01)
[2018-01-02] MEDS: TAMSULOSIN 0.4 MG CAP.ER.24H PO SCH (08:02)
[2018-01-02] MEDS: ASPIRIN 81 MG PO SCH (08:02)
[2018-01-02] MEDS: GABAPENTIN 300 MG CAP PO SCH ×2 (08:02→21:23)
[2018-01-02] MEDS: FERROUS SULFATE 325 MG TAB PO SCH (08:02)
[2018-01-02] MEDS: ARTIFICIAL TEARS-HYPROMELLOSE DROPS 15 ML BTL BOTH EYES SCH ×2 (08:14→21:24)
[2018-01-02] MEDS: INSULIN DETEMIR 100 UNIT/ML 10 ML VIAL SQ SCH ×2 (11:06→22:44)
[2018-01-02] MEDS: LEVOFLOXACIN 750 MG TAB PO SCH (11:07)
[2018-01-02 11:42] LABS: Glucose,Whole Blood 230 mg/dL (75-99)
--- NOTE | 2018-01-02 11:55 | P.PN ---
Subjective Progress Note Date: 01/02/18 Principal diagnosis: Acute dyspnea, chest pain, moderate to severe COPD, CHF with diastolic dysfunction This is a 82-year-old male patient was brought in from [facility] for altered mental status and hypoxemia. According to the nursing staff the patient has been having the symptoms for the past 24 hours and had been hypertensive this morning and he was brought into the emergency department for further treatment. He was oriented to person and place and time and he was considered to be a full code. The patient was complaining of cough and pleurisy according to the nursing staff. He was also having some altered mentation and he was also having a low-grade fever. He was initially taken to [facility] and following that he got moved to [facility] for further investigation and treatment. A chest x-ray that was done in Hospital showed bilateral pulmonary infiltrates consistent with pneumonia and the patient was given a dose of Rocephin and following that he was transferred here. The triple-lumen catheter was also inserted in his right femoral vein and the patient is currently on pressors at 5 g per KG per minute. The patient is currently on 100% nonrebreather facemask. He is alert. He is arousable. He is talking and following simple commands. He is profoundly weak. He just arrived to our emergency department. His white cell count is at 7. He is toxic on Coumadin with an INR of 7.5 units doesn't show any source of bleeding. He has an acute kidney injury with a creatinine of 2 with a BUN of 70. His anion gap is at 10 and his glucoses at 239. He had a CPK of 659. AST and ALP are within normal limits. Urinalysis also was done and it shows 1 WBC 3 RBCs and no bacteria. The patient received a total of 2 L of IV fluids and the 30th and was given here in the emergency department. He was started a combination of antibiotics and currently is on a combination of Zosyn and Levaquin. Is on Lovenox for DVT prophylaxis. He is on DuoNeb about treatments around the clock. IV fluids as maintenance is running at 150 mL an hour. On 12/30/2017 I'm seeing this patient for a follow-up. The patient got transferred to our facility because of pneumonia and sepsis. The patient was treated with broad-spectrum antibiotics including a combination of Zosyn and Levaquin. He was resuscitated IV fluids and currently he is normotensive and the pressors have been weaned off. The chest x-ray from today still showing bilateral pleural parenchymal changes, and I suspect some of the findings of chronic knowing that the previous CAT scan of the chest has shown some bronchiectatic changes and pleural parenchymal scarring and thickening in the right lung base. For that reason, a follow-up CAT scan of the chest will be ordered. Meanwhile, patient is much more comfortable in terms of his breathing. He is currently on high flow oxygen 6 L per minute nasal cannula and he was taken off the 100% nonrebreather facemask. He also underwent Doppler of the lower extremity that do not to be positive and the ultrasound showed a right lower extremity DVT. Noted the patient was already on anticoagulation and the patient presented with a subtherapeutic INR. He was given family grams of vitamin K to drop his INR down to 1.7. He will be restarted back on anticoagulation. Meanwhile, CAT scan of the chest be ordered to characterize the above-mentioned abnormalities and this will be a noncontrast CAT scan 9 and the patient has underlying chronic renal impairment and the patient is recovering from an acute kidney injury with a creatinine being down from 2.03-1.43. The patient clinically is alert and awake. He is, indicating. He is morbidly obese. I was told that the patient is unable to ambulate and he is essentially sedentary and his been taken care of at the medical facility in [facility]. On 12/31/2017 patient seen in follow-up. Patient is awake and alert, he is currently on 4 L per nasal cannula, and pulse ox is at 97%, this can probably be weaned further. He is normal oxygen flow is 2 L/m. Today's exam revealed some crackles at bilateral bases, no fever or chills, follow-up chest x-ray was reviewed by Dr. Stone, and showed basilar atelectasis, patchy basilar density , increased interstitium. Yesterday we obtained a CT chest and there were some chronic bronchiectatic changes and pleural parenchymal scarring and thickening in the right lung base. No ongoing fever or chills, patient is hemodynamically stable, microbiology results have been reviewed, urine and blood culture showed no growth, sputum culture showed Anika albicans. Leukocytosis, patient is currently on IV Zosyn for antibiotic coverage. Today's labs have been reviewed , renal profile is within normal limits, potassium is 3.3 this was replaced per protocol, INR is 1.3, he will be given on a dose of Coumadin 5 mg tonight. On 01/02/2018 patient seen in follow-up. Resting comfortably in bed, he is awake and alert, oriented to person, responding appropriately to questions. Early on 2 L per nasal cannula, his pulse ox is 97%, he is afebrile, hemodynamically stable. He is compliant with his incentive spirometer, he is able to achieve 5773-0495 ML on the today. Lung sounds are positive for a few scattered rhonchi, diminished at the bases. Sputum cultures showed presumptive staph aureus, final culture is pending. Patient is currently on antibiotic coverage in the form of Zosyn. No ongoing fever or chills. Objective - Vital Signs Vital signs: Vital Signs Temp 96.7 F L 01/02/18 11:22 Pulse 58 L 01/02/18 11:29 Resp 18 01/02/18 11:29 BP 138/80 01/02/18 11:22 Pulse Ox 97 01/02/18 11:22 Intake & Output 01/01/18 01/02/18 01/02/18 18:59 06:59 18:59 Intake Total 1331 480 378 Output Total 600 Balance 1331 -120 378 Weight 133.5 kg Intake: IV 60 Invasive Line 4 10 Piperacillin-Tazobactam 3 50 .375 gm In Dextrose/Water 1 50ml.bag @ 12.5 mls/hr IVPB Q8H [facility] Rx#: [id number] Intake, IV Titration 130 Amount Sodium Chloride 0.9% 1, 130 000 ml @ 20 mls/hr IV . Q24H [facility] Rx#:[id number] Oral 1141 480 378 Output: Urine 600 Other: Voiding Method Indwelling Catheter Indwelling Catheter Indwelling Catheter # Bowel Movements 2 - Exam Obese, the patient is currently the patient is not having any significant rest or distress and is calm and comfortable and is able to speak of. This is. Head exam was generally normal. There was no scleral icterus or corneal arcus. Mucous membranes were moist. Neck was supple and without jugular venous distension, thyromegaly, or carotid bruits. Carotids were easily palpable bilaterally. There was no adenopathy. The patient has significant crowding of the posterior oropharynx and a Mallampati class IV Lungs sounds are diminished bilaterally and the patient has a few scattered rhonchi bilaterally Cardiac exam revealed the PMI to be normally situated and sized. The rhythm was regular and no extrasystoles were noted during several minutes of auscultation. The first and second heart sounds were normal and physiologic splitting of the second heart sound was noted. There were no murmurs, rubs, clicks, or gallops. Abdomen is soft obese and nontender. No direct tenderness. No rebound tenderness. No guarding. Bowel sounds are hypoactive at the present. Extremities revealed +1 pitting edema there is no cyanosis or clubbing. Pulses are present lower extremity is bilaterally. Neurologic the patient is awake and alert and he has profound weakness in lower extremities and he is unable to ambulate and this is a chronic problem. Otherwise his neurologic exam is nonfocal. Examination of the skin revealed no evidence of significant rashes, suspicious appearing nevi or other concerning lesions. - Labs CBC & Chem 7: 01/02/18 06:17 01/02/18 06:17 Labs: Abnormal Lab Results - Last 24 Hours (Table) 01/01/18 01/01/18 01/01/18 Range/Units 12:02 17:06 20:51 RBC (4.30-5.90) m/uL Hgb (13.0-17.5) gm/dL Hct (39.0-53.0) % MCHC (31.0-37.0) g/dL RDW (11.5-15.5) % Neutrophils # (1.3-7.7) k/uL Lymphocytes # (1.0-4.8) k/uL PT (9.0-12.0) sec INR (<1.2) BUN (9-20) mg/dL Glucose (74-99) mg/dL POC Glucose (mg/dL) 290 H 334 H 295 H (75-99) mg/dL Phosphorus (2.5-4.5) mg/dL 01/02/18 01/02/18 01/02/18 Range/Units 06:07 06:17 06:17 RBC 3.66 L (4.30-5.90) m/uL Hgb 9.8 L (13.0-17.5) gm/dL Hct 31.9 L (39.0-53.0) % MCHC 30.8 L (31.0-37.0) g/dL RDW 18.7 H (11.5-15.5) % Neutrophils # 8.7 H (1.3-7.7) k/uL Lymphocytes # 0.7 L (1.0-4.8) k/uL PT 19.0 H (9.0-12.0) sec INR 2.1 H (<1.2) BUN (9-20) mg/dL Glucose (74-99) mg/dL POC Glucose (mg/dL) 237 H (75-99) mg/dL Phosphorus (2.5-4.5) mg/dL 01/02/18 01/02/18 Range/Units 06:17 11:40 RBC (4.30-5.90) m/uL Hgb (13.0-17.5) gm/dL Hct (39.0-53.0) % MCHC (31.0-37.0) g/dL RDW (11.5-15.5) % Neutrophils # (1.3-7.7) k/uL Lymphocytes # (1.0-4.8) k/uL PT (9.0-12.0) sec INR (<1.2) BUN 55 H (9-20) mg/dL Glucose 208 H (74-99) mg/dL POC Glucose (mg/dL) 230 H (75-99) mg/dL Phosphorus 2.0 L (2.5-4.5) mg/dL Microbiology - Last 24 Hours (Table) 12/29/17 22:52 Gram Stain - Preliminary Sputum Sputum Culture - Preliminary Anika albicans Presumptive Staph aureus 12/29/17 16:11 Blood Culture - Preliminary Blood No Growth after 72 hours Assessment and Plan Plan: 1 acute hypoxic respiratory failure secondary to bilateral pneumonia. The patient presented with severe hypoxic respiratory failure and hypotension and the patient was initially on 100% nonrebreather facemask and he was weaned down to 6 L of oxygen by nasal cannula. Follow-up chest x-ray from today shows persistent infiltration and a CAT scan of the chest is to follow. Remain on examination of Zosyn and Levaquin. Currently off pressors. 2 sepsis, likely secondary to underlying pneumonia, resuscitated IV fluids and antibiotics and the patient is currently off pressors 3 acute hypotension secondary to sepsis/septic shock and the patient is currently off pressors 4 Coumadin toxicity without evidence of any bleeding. The patient's INR was as high as 7 and he received vitamin K and his INR is down to 1.7 5 chronic kidney disease, stage III, stable, with an improvement in the renal function as the patient is recovering from an acute kidney injury on top of chronic renal failure 6 chronic anemia/anemia of chronic disease 7 morbid obesity with a BMI of 48.6 8 previous history of DVT and pulmonary embolism, recurrent and the patient is a maintained on warfarin outpatient basis, and the repeat ultrasound Doppler of the lower extremity shows persistent clotting of the right lower extremity and the patient will be restarted back on his anticoagulation. 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 The patient is a resident of [facility]. Plan: No wheezing, no increased congestion or worsening shortness of breath, we'll switch the IV steroids to oral prednisone. Continue current antibiotic coverage , will await final results of the sputum culture that showed presumptive staph aureus. The patient remains afebrile, no leukocytosis. Continue nebulized bronchodilators, encouraged incentive spirometry. I performed a history & physical examination of the patient and discussed their management with my nurse practitioner, Kim Patel. I reviewed the nurse practitioner's note and agree with the documented findings and plan of care. Lung sounds are positive a few scattered rhonchi. The findings and the impression was discussed with the patient. I attest to the documentation by the nurse practitioner. Time with Patient: Less than 30
--- NOTE | 2018-01-02 13:51 | P.PN ---
Subjective Progress Note Date: 01/02/18 Principal diagnosis: Shortness of breath I'm dictating for Dr. Escobar Interval history : Maximino Gasca is a 82 year old man was transfered from [facility]. was residing at [facility]. Family states he has had a cough for about 10 days with decreasing mentation. Patient is bedbound at home. Hx of COPD and abd aneurysm.Hx of DVT on coumadin toxic at 7.5. Patient presently is on levaphed for hypotension . Has been evaluated by Dr Stone. Patient has not been seen by family physician for 2 years. Patient is admitted to inpatient unit and has had pulmonary consultation. Patient is started on IV antibiotic. Patient is seen and examined this morning. He is laying in bed. He is using oxygen per nasal cannula, .his pulse ox is 97%, he is afebrile, hemodynamically stable. He continued to have cough with sputum. Patient is on IV antibiotics Zosyn. Patient was started on IV steroid, nebulized bronchodilators along with his home medication . Patient did have bowel movement after taking a laxative. His Schmidt catheter will be discontinued, will check. Ordered BladderScan residual for any urinary retention. Review of systems: CONSTITUTIONAL: No fever chills or diaphoresis HEENT: Normocephalic. CARDIOVASCULAR: No chest pain, S1-S2 regular rate and rhythm PULMONARY: Lung sounds are diminished with expiratory wheezing and scattered rhonchi. GASTROINTESTINAL: No diarrhea, no nausea, no vomiting, no abdominal pain. Normoactive bowel sounds. Complained of constipation for NEUROLOGICAL: oriented 3 no focal deficit noted. GENITOURINARY: Indwelling Schmidt catheter to draining yellow urine. MUSCULOSKELETAL/RHEUMATOLOGICAL: 1-2+ lower extremity edema, peripheral pulses 2 + bilaterally. PSYCHIATRIC: No anxiety, no depression The rest of the 14 point review of systems is negative Objective - Vital Signs Vital signs: Vital Signs Temp 96.7 F L 01/02/18 11:22 Pulse 53 L 01/02/18 12:00 Resp 18 01/02/18 12:00 BP 138/80 01/02/18 11:22 Pulse Ox 97 01/02/18 11:22 Intake & Output 01/01/18 01/02/18 01/02/18 18:59 06:59 18:59 Intake Total 1331 480 378 Output Total 600 Balance 1331 -120 378 Weight 133.5 kg Intake: IV 60 Invasive Line 4 10 Piperacillin-Tazobactam 3 50 .375 gm In Dextrose/Water 1 50ml.bag @ 12.5 mls/hr IVPB Q8H [facility] Rx#: [id number] Intake, IV Titration 130 Amount Sodium Chloride 0.9% 1, 130 000 ml @ 20 mls/hr IV . Q24H [facility] Rx#:[id number] Oral 1141 480 378 Output: Urine 600 Other: Voiding Method Indwelling Catheter Indwelling Catheter Indwelling Catheter # Bowel Movements 2 - Exam PHYSICAL EXAM: GENERAL: HEENT: Conjunctivae normal. eyes normal. NECK: No JVD. Supple CARDIOVASCULAR: S1, S2 muffled. No murmur RESPIRATION: Breath sounds diminished with scattered rhonchi ABDOMEN: Obese Soft, nontender . .Bowel sounds heard. LEGS: No edema. no swelling PSYCHIATRY: Alert and oriented 3, mood and affect normal. NERVOUS SYSTEM: . Diffuse weakness No focal deficits. Skin: no ulcer no rash Joints: No active swelling. No inflammation. Active Medications Active Medications Acetaminophen (Tylenol Tab) 650 mg PO TID PRN PRN Reason: Mild Pain Last Admin: 12/30/17 15:55 Dose: 650 mg Al Hydroxide/Mg Hydroxide (Maalox) 30 ml PO Q4H PRN PRN Reason: GI Upset Albuterol/Ipratropium (Duoneb 0.5 Mg-3 Mg/3 Ml Soln) 3 ml INHALATION RT-Q4H PRN PRN Reason: Shortness Of Breath Or Wheezing Last Admin: 01/02/18 11:28 Dose: 3 ml Allopurinol (Zyloprim) 300 mg PO [facility] Last Admin: 01/01/18 19:54 Dose: 300 mg Amiodarone HCl (Cordarone) 200 mg PO DAILY [facility] Last Admin: 01/02/18 08:01 Dose: 200 mg Artificial Tears (Artificial Tear Drops) 1 drops BOTH EYES BID [facility] Last Admin: 01/02/18 08:14 Dose: 1 drops Aspirin (Aspirin) 81 mg PO DAILY [facility] Last Admin: 01/02/18 08:02 Dose: 81 mg Atorvastatin Calcium (Lipitor) 20 mg PO HS [facility] Last Admin: 01/01/18 19:55 Dose: 20 mg Budesonide (Pulmicort) 0.5 mg INHALATION RT-BID [facility] Last Admin: 01/02/18 07:42 Dose: 0.5 mg Fentanyl (Duragesic 100mcg/Hr Patch) 1 patch TRANSDERM Q72H [facility] Last Admin: 01/02/18 12:01 Dose: 1 patch Ferrous Sulfate (Feosol) 325 mg PO DAILY@1200 [facility] Last Admin: 01/02/18 08:02 Dose: 325 mg Gabapentin (Neurontin) 300 mg PO BID [facility] Last Admin: 01/02/18 08:02 Dose: 300 mg Guaifenesin (Mucinex) 600 mg PO Q12H [facility] Last Admin: 01/02/18 08:00 Dose: 600 mg Hydrocortisone (Proctosol-Hc 2.5%) 1 applic RECTAL TID PRN PRN Reason: INFLAMED HERORRHOIDS Piperacillin/Tazobactam/ (Dextrose 3.375 gm/ IV Solution) 50 mls @ 12.5 mls/hr IVPB Q8H [facility] Last Admin: 01/02/18 11:06 Dose: 12.5 mls/hr Sodium Chloride (Saline 0.9%) 1,000 mls @ 20 mls/hr IV .Q24H [facility] Last Admin: 01/01/18 17:17 Dose: 20 mls/hr Insulin Aspart (Novolog) 0 unit SQ ACHS [facility]; Protocol Last Admin: 01/02/18 12:06 Dose: 7 unit Insulin Aspart (Novolog) 10 unit SQ AC-TID [facility] Last Admin: 01/02/18 12:05 Dose: 10 unit Insulin Detemir (Levemir) 24 unit SQ QAM [facility] Last Admin: 01/02/18 11:06 Dose: 24 unit Latanoprost (Xalatan 0.005%) 1 drops BOTH EYES [facility] Last Admin: 01/01/18 19:55 Dose: 1 drops Levofloxacin (Levaquin) 750 mg PO Q24H [facility] Last Admin: 01/02/18 11:07 Dose: 750 mg Magnesium Hydroxide (Milk Of Magnesia) 2,400 mg PO DAILY PRN PRN Reason: Constipation Melatonin (Melatonin) 5 mg PO [facility] Last Admin: 01/01/18 19:54 Dose: 5 mg Methylprednisolone Sodium Succinate (Solu-Medrol) 40 mg IV Q8HR [facility] Last Admin: 01/02/18 08:00 Dose: 40 mg Miscellaneous Information (Magnesium Per Protocol) 1 each MISCELLANE DAILY PRN ; Protocol PRN Reason: Per Protocol Miscellaneous Information (Potassium Per Protocol) 1 each MISCELLANE DAILY PRN ; Protocol PRN Reason: Per Protocol Montelukast Sodium (Singulair) 10 mg PO DAILY [facility] Last Admin: 01/02/18 08:01 Dose: 10 mg Naloxone HCl (Narcan) 0.2 mg IV Q2M PRN PRN Reason: Opioid Reversal Pantoprazole Sodium (Protonix) 40 mg IV DAILY [facility] Last Admin: 01/02/18 08:01 Dose: 40 mg Senna/Docusate Sodium (Senokot-S) 2 each PO BID [facility] Last Admin: 01/02/18 08:00 Dose: 2 each Sertraline HCl (Zoloft) 100 mg PO DAILY [facility] Last Admin: 01/02/18 08:00 Dose: 100 mg Silver Sulfadiazine (Silvadene Cream) 1 applic TOPICAL BID [facility] Last Admin: 01/02/18 12:01 Dose: 1 applic Tamsulosin HCl (Flomax) 0.4 mg PO DAILY [facility] Last Admin: 01/02/18 08:02 Dose: 0.4 mg Warfarin Sodium (Coumadin) 5 mg PO DAILY@1800 [facility] Last Admin: 01/01/18 17:21 Dose: 5 mg - Labs CBC & Chem 7: 01/02/18 06:17 01/02/18 06:17 Labs: Abnormal Lab Results - Last 24 Hours (Table) 01/01/18 01/01/18 01/02/18 Range/Units 17:06 20:51 06:07 RBC (4.30-5.90) m/uL Hgb (13.0-17.5) gm/dL Hct (39.0-53.0) % MCHC (31.0-37.0) g/dL RDW (11.5-15.5) % Neutrophils # (1.3-7.7) k/uL Lymphocytes # (1.0-4.8) k/uL PT (9.0-12.0) sec INR (<1.2) BUN (9-20) mg/dL Glucose (74-99) mg/dL POC Glucose (mg/dL) 334 H 295 H 237 H (75-99) mg/dL Phosphorus (2.5-4.5) mg/dL 01/02/18 01/02/18 01/02/18 Range/Units 06:17 06:17 06:17 RBC 3.66 L (4.30-5.90) m/uL Hgb 9.8 L (13.0-17.5) gm/dL Hct 31.9 L (39.0-53.0) % MCHC 30.8 L (31.0-37.0) g/dL RDW 18.7 H (11.5-15.5) % Neutrophils # 8.7 H (1.3-7.7) k/uL Lymphocytes # 0.7 L (1.0-4.8) k/uL PT 19.0 H (9.0-12.0) sec INR 2.1 H (<1.2) BUN 55 H (9-20) mg/dL Glucose 208 H (74-99) mg/dL POC Glucose (mg/dL) (75-99) mg/dL Phosphorus 2.0 L (2.5-4.5) mg/dL 01/02/18 Range/Units 11:40 RBC (4.30-5.90) m/uL Hgb (13.0-17.5) gm/dL Hct (39.0-53.0) % MCHC (31.0-37.0) g/dL RDW (11.5-15.5) % Neutrophils # (1.3-7.7) k/uL Lymphocytes # (1.0-4.8) k/uL PT (9.0-12.0) sec INR (<1.2) BUN (9-20) mg/dL Glucose (74-99) mg/dL POC Glucose (mg/dL) 230 H (75-99) mg/dL Phosphorus (2.5-4.5) mg/dL Microbiology - Last 24 Hours (Table) 12/29/17 22:52 Gram Stain - Preliminary Sputum Sputum Culture - Preliminary Anika albicans Presumptive Staph aureus 12/29/17 16:11 Blood Culture - Preliminary Blood No Growth after 72 hours Assessment and Plan Assessment: acute respiratory failure secondary to pneumonia sepsis secondary to pneumonia acute hypotension secondary to sepsis, coumadin toxcity, improving chronic kidney disease stage III chronic anemia secodary to chronic disease morbid obesity BMI 48.6 hx of DVT and PE on coumadin BPH COPD hypertension iron def anemia CAD gout chronic constipation impaired hearing hyperlipemia depression glaucoma DM II aortic aneurysm with stent graft Decubitus ulcer, unstageable, percent on admission Physical debility, bed ridden Plan: We'll continue current medication and antibiotic in the form of Zosyn as well as Levaquin. Continue nebulized as well as systemic steroid, nebulized bronchodilators. His blood sugars are uncontrolled secondary to IV steroid insulin dose has been readjusted. Monitor blood sugar before meals and at bedtime with sliding scale coverage. Patient has a stage II decubitus ulcer few of them unstageable on his buttocks which was present on admission, wound care consult requested. Monitor patient closely continue GI and DVT prophylaxis. Prognosis is court-ordered due to multiple complex medical problems. Further plans based on his clinical course. Discussed plan of care with patient and family The impression and plan of care has been dictated as directed. : I performed a history and examination of this patient, discussed the same with the dictator. I agree with the dictator's note ,documented as a scribe. Any additional findings or plans will be noted.
[2018-01-02] MEDS: WARFARIN 5 MG TAB PO SCH (16:19)
[2018-01-02] MEDS: SODIUM CHLORIDE 0.9% 1,000 ML IV SCH (16:19)
[2018-01-02 17:10] LABS: Glucose,Whole Blood 260 mg/dL (75-99)
[2018-01-02 20:54] LABS: Glucose,Whole Blood 299 mg/dL (75-99)
[2018-01-02] MEDS: ATORVASTATIN 20 MG TAB PO SCH (21:23)
[2018-01-02] MEDS: ALLOPURINOL 300 MG TAB PO SCH (21:23)
[2018-01-02] MEDS: LATANOPROST 0.005% OPHTH DROPS 2.5 ML BTL BOTH EYES SCH (21:23)
[2018-01-02] MEDS: MELATONIN 5 MG TABLET PO SCH (21:24)
[2018-01-02] MEDS: INSULIN REGULAR 100 UNIT in SODIUM CHLORIDE 0.9% 100 ML IV SCH (22:52)
[2018-01-02 23:25] LABS: Glucose,Whole Blood 323 mg/dL (75-99)
[2018-01-03 00:06] LABS: Glucose,Whole Blood 268 mg/dL (75-99)
[2018-01-03 00:36] LABS: Glucose,Whole Blood 265 mg/dL (75-99)
[2018-01-03] MEDS: methylPREDNISolone SOD SUCCI 40 MG/ML 1 ML VIAL IV SCH ×2 (01:00→09:35)
[2018-01-03 01:05] LABS: Glucose,Whole Blood 243 mg/dL (75-99)
[2018-01-03 03:04] LABS: Glucose,Whole Blood 161 mg/dL (75-99)
[2018-01-03] MEDS: PIPERACILLIN-TAZOBACTAM 3.375 GM in DEXTROSE/WATER 1 50ML.BAG IVPB SCH ×3 (05:02→21:45)
[2018-01-03 05:38] LABS: Glucose,Whole Blood 119 mg/dL (75-99)
[2018-01-03] MEDS: INSULIN ASPART 100 UNIT/ML 1 ML 10 ML VIAL SQ SCH ×7 (06:27→21:48)
[2018-01-03 06:38] LABS: Anisocytosis Slight; Basophils # (A) 0.1 k/uL (0-0.2); Basophils % (A) 0 %; Eosinophils % (A) 0 %; HCT 32.4 % (39.0-53.0); HGB 10.1 gm/dL (13.0-17.5); Hypochromasia Slight; Lymphocytes # (A) 0.5 k/uL (1.0-4.8); Lymphocytes % (A) 4 %; MCH 26.9 pg (25.0-35.0); MCHC 31.1 g/dL (31.0-37.0); MCV 86.4 fL (80.0-100.0); Mean Platelet Volume 7.5; Monocytes # (A) 0.5 k/uL (0-1.0); Monocytes % (A) 4 %; Neutrophils # (A) 11.6 k/uL (1.3-7.7); Neutrophils % (A) 91 %; Platelet Count 317 k/uL (150-450); RBC 3.75 m/uL (4.30-5.90); RDW 18.9 % (11.5-15.5); WBC 12.8 k/uL (3.8-10.6)
[2018-01-03 06:40] LABS: INR 2.6 (<1.2); Prothrombin Time 23.3 sec (9.0-12.0)
[2018-01-03 06:46] LABS: Calcium 8.7 mg/dL (8.4-10.2); Magnesium 1.8 mg/dL (1.6-2.3); Phosphorus 2.6 mg/dL (2.5-4.5); Potassium 4.9 mmol/L (3.5-5.1)
[2018-01-03 07:07] LABS: Glucose,Whole Blood 162 mg/dL (75-99)
[2018-01-03] MEDS ORDERED: INSULIN ASPART 100 UNIT/ML 1 ML 10 ML VIAL SQ SCH (07:30)
[2018-01-03] MEDS: BUDESONIDE 0.5 MG/2 ML NEBU INHALATION SCH ×2 (07:34→20:04)
[2018-01-03] MEDS: IPRATROPIUM-ALBUTEROL 3 ML NEB INHALATION PRN ×4 (07:34→20:04)
[2018-01-03] MEDS: INSULIN REGULAR 100 UNIT in SODIUM CHLORIDE 0.9% 100 ML IV SCH (09:33)
[2018-01-03] MEDS: INSULIN DETEMIR 100 UNIT/ML 10 ML VIAL SQ SCH ×2 (09:34→21:48)
[2018-01-03 09:35] LABS: Glucose,Whole Blood 228 mg/dL (75-99)
[2018-01-03] MEDS: GABAPENTIN 300 MG CAP PO SCH ×2 (09:35→21:46)
[2018-01-03] MEDS: SENNOSIDES-DOCUSATE SODIUM 1 EACH TAB PO SCH ×2 (09:35→21:47)
[2018-01-03] MEDS: SERTRALINE 100 MG TAB PO SCH (09:35)
[2018-01-03] MEDS: MONTELUKAST 10 MG TAB PO SCH (09:35)
[2018-01-03] MEDS: TAMSULOSIN 0.4 MG CAP.ER.24H PO SCH (09:35)
[2018-01-03] MEDS: PANTOPRAZOLE 40 MG/10 ML VIAL IV SCH (09:36)
[2018-01-03] MEDS: ASPIRIN 81 MG PO SCH (09:36)
[2018-01-03] MEDS: AMIODARONE 200 MG TAB PO SCH (09:36)
[2018-01-03] MEDS: guaiFENesin 600 MG TABLET.ER PO SCH ×2 (09:36→21:46)
[2018-01-03] MEDS: ARTIFICIAL TEARS-HYPROMELLOSE DROPS 15 ML BTL BOTH EYES SCH ×2 (09:37→21:46)
[2018-01-03] MEDS ORDERED: VANCOMYCIN IV PER PHARMACY 1 EACH MISC MISCELLANE PRN ×2 (10:39→20:19)
--- NOTE | 2018-01-03 10:43 | P.PN ---
Subjective Progress Note Date: 01/03/18 Principal diagnosis: Acute dyspnea, chest pain, moderate to severe COPD, CHF with diastolic dysfunction This is a 82-year-old male patient was brought in from [facility] for altered mental status and hypoxemia. According to the nursing staff the patient has been having the symptoms for the past 24 hours and had been hypertensive this morning and he was brought into the emergency department for further treatment. He was oriented to person and place and time and he was considered to be a full code. The patient was complaining of cough and pleurisy according to the nursing staff. He was also having some altered mentation and he was also having a low-grade fever. He was initially taken to [facility] and following that he got moved to [facility] for further investigation and treatment. A chest x-ray that was done in Hospital showed bilateral pulmonary infiltrates consistent with pneumonia and the patient was given a dose of Rocephin and following that he was transferred here. The triple-lumen catheter was also inserted in his right femoral vein and the patient is currently on pressors at 5 g per KG per minute. The patient is currently on 100% nonrebreather facemask. He is alert. He is arousable. He is talking and following simple commands. He is profoundly weak. He just arrived to our emergency department. His white cell count is at 7. He is toxic on Coumadin with an INR of 7.5 units doesn't show any source of bleeding. He has an acute kidney injury with a creatinine of 2 with a BUN of 70. His anion gap is at 10 and his glucoses at 239. He had a CPK of 659. AST and ALP are within normal limits. Urinalysis also was done and it shows 1 WBC 3 RBCs and no bacteria. The patient received a total of 2 L of IV fluids and the 30th and was given here in the emergency department. He was started a combination of antibiotics and currently is on a combination of Zosyn and Levaquin. Is on Lovenox for DVT prophylaxis. He is on DuoNeb about treatments around the clock. IV fluids as maintenance is running at 150 mL an hour. On 12/30/2017 I'm seeing this patient for a follow-up. The patient got transferred to our facility because of pneumonia and sepsis. The patient was treated with broad-spectrum antibiotics including a combination of Zosyn and Levaquin. He was resuscitated IV fluids and currently he is normotensive and the pressors have been weaned off. The chest x-ray from today still showing bilateral pleural parenchymal changes, and I suspect some of the findings of chronic knowing that the previous CAT scan of the chest has shown some bronchiectatic changes and pleural parenchymal scarring and thickening in the right lung base. For that reason, a follow-up CAT scan of the chest will be ordered. Meanwhile, patient is much more comfortable in terms of his breathing. He is currently on high flow oxygen 6 L per minute nasal cannula and he was taken off the 100% nonrebreather facemask. He also underwent Doppler of the lower extremity that do not to be positive and the ultrasound showed a right lower extremity DVT. Noted the patient was already on anticoagulation and the patient presented with a subtherapeutic INR. He was given family grams of vitamin K to drop his INR down to 1.7. He will be restarted back on anticoagulation. Meanwhile, CAT scan of the chest be ordered to characterize the above-mentioned abnormalities and this will be a noncontrast CAT scan 9 and the patient has underlying chronic renal impairment and the patient is recovering from an acute kidney injury with a creatinine being down from 2.03-1.43. The patient clinically is alert and awake. He is, indicating. He is morbidly obese. I was told that the patient is unable to ambulate and he is essentially sedentary and his been taken care of at the medical facility in [facility]. On 12/31/2017 patient seen in follow-up. Patient is awake and alert, he is currently on 4 L per nasal cannula, and pulse ox is at 97%, this can probably be weaned further. He is normal oxygen flow is 2 L/m. Today's exam revealed some crackles at bilateral bases, no fever or chills, follow-up chest x-ray was reviewed by Dr. Stone, and showed basilar atelectasis, patchy basilar density , increased interstitium. Yesterday we obtained a CT chest and there were some chronic bronchiectatic changes and pleural parenchymal scarring and thickening in the right lung base. No ongoing fever or chills, patient is hemodynamically stable, microbiology results have been reviewed, urine and blood culture showed no growth, sputum culture showed Anika albicans. Leukocytosis, patient is currently on IV Zosyn for antibiotic coverage. Today's labs have been reviewed , renal profile is within normal limits, potassium is 3.3 this was replaced per protocol, INR is 1.3, he will be given on a dose of Coumadin 5 mg tonight. On 01/02/2018 patient seen in follow-up. Resting comfortably in bed, he is awake and alert, oriented to person, responding appropriately to questions. Early on 2 L per nasal cannula, his pulse ox is 97%, he is afebrile, hemodynamically stable. He is compliant with his incentive spirometer, he is able to achieve 2607-2718 ML on the today. Lung sounds are positive for a few scattered rhonchi, diminished at the bases. Sputum cultures showed presumptive staph aureus, final culture is pending. Patient is currently on antibiotic coverage in the form of Zosyn. No ongoing fever or chills. On 01/03/2018 patient seen in follow-up on selective care unit. His dyspnea he had an episode of shortness of breath, some chest congestion, relieved with breathing treatment. Patient has been afebrile, continues on 3 L per nasal cannula pulse ox of 97%. Lung sounds are positive for a few scattered rales over right lower base posteriorly. Respirations are even and nonlabored, patient does have a loose congested cough. Today's white count is 12.8, hemoglobin is 10.1, INR is 2.6, electrolytes are within normal limits, BUN is 47 and creatinine 0.99 on insulin drip currently at 3.5 units per hour, maintenance IV fluid 0.9 normal saline at a rate of 20 ML per hour. Patient is still having significant steroid-induced hyperglycemia, and at this time patient can be switched to oral prednisone. Objective - Vital Signs Vital signs: Vital Signs Temp 97.2 F L 01/03/18 08:00 Pulse 57 L 01/03/18 08:00 Resp 18 01/03/18 08:00 BP 130/62 01/03/18 08:00 Pulse Ox 97 01/03/18 08:00 Intake & Output 01/02/18 01/03/18 01/03/18 18:59 06:59 18:59 Intake Total 1384 60.516 258.377 Output Total 1600 1350 Balance -216 -1289.484 258.377 Intake: IV 50 10 Invasive Line 5 10 Piperacillin-Tazobactam 3 50 .375 gm In Dextrose/Water 1 50ml.bag @ 12.5 mls/hr IVPB Q8H ALEXANDR Rx#: [id number] Intake, IV Titration 220 60.516 8.377 Amount Insulin Regular 100 unit 60.516 8.377 In Sodium Chloride 0.9% 100 ml @ Titrate IV .Q0M ALEXANDR Rx#:[id number] Sodium Chloride 0.9% 1, 220 000 ml @ 20 mls/hr IV . Q24H ALEXANDR Rx#:[id number] Oral 1114 240 Output: Urine 1600 1350 Uretheral (Schmidt) 1200 Other: Voiding Method Urinal Urinal Urinal Diaper # Voids 1 - Exam Obese, the patient is currently the patient is not having any significant rest or distress and is calm and comfortable and is able to speak of. This is. Head exam was generally normal. There was no scleral icterus or corneal arcus. Mucous membranes were moist. Neck was supple and without jugular venous distension, thyromegaly, or carotid bruits. Carotids were easily palpable bilaterally. There was no adenopathy. The patient has significant crowding of the posterior oropharynx and a Mallampati class IV Lungs sounds are diminished bilaterally and the patient has a few scattered rales at the right lower base Cardiac exam revealed the PMI to be normally situated and sized. The rhythm was regular and no extrasystoles were noted during several minutes of auscultation. The first and second heart sounds were normal and physiologic splitting of the second heart sound was noted. There were no murmurs, rubs, clicks, or gallops. Abdomen is soft obese and nontender. No direct tenderness. No rebound tenderness. No guarding. Bowel sounds are hypoactive at the present. Extremities revealed +1 pitting edema there is no cyanosis or clubbing. Pulses are present lower extremity is bilaterally. Neurologic the patient is awake and alert and he has profound weakness in lower extremities and he is unable to ambulate and this is a chronic problem. Otherwise his neurologic exam is nonfocal. Examination of the skin revealed no evidence of significant rashes, suspicious appearing nevi or other concerning lesions. - Labs CBC & Chem 7: 01/03/18 06:07 01/03/18 06:07 Labs: Abnormal Lab Results - Last 24 Hours (Table) 01/02/18 01/02/18 01/02/18 Range/Units 11:40 17:08 20:50 WBC (3.8-10.6) k/uL RBC (4.30-5.90) m/uL Hgb (13.0-17.5) gm/dL Hct (39.0-53.0) % RDW (11.5-15.5) % Neutrophils # (1.3-7.7) k/uL Lymphocytes # (1.0-4.8) k/uL PT (9.0-12.0) sec INR (<1.2) BUN (9-20) mg/dL Glucose (74-99) mg/dL POC Glucose (mg/dL) 230 H 260 H 299 H (75-99) mg/dL 01/02/18 01/03/18 01/03/18 Range/Units 23:22 00:03 00:34 WBC (3.8-10.6) k/uL RBC (4.30-5.90) m/uL Hgb (13.0-17.5) gm/dL Hct (39.0-53.0) % RDW (11.5-15.5) % Neutrophils # (1.3-7.7) k/uL Lymphocytes # (1.0-4.8) k/uL PT (9.0-12.0) sec INR (<1.2) BUN (9-20) mg/dL Glucose (74-99) mg/dL POC Glucose (mg/dL) 323 H 268 H 265 H (75-99) mg/dL 01/03/18 01/03/18 01/03/18 Range/Units 00:53 03:02 05:37 WBC (3.8-10.6) k/uL RBC (4.30-5.90) m/uL Hgb (13.0-17.5) gm/dL Hct (39.0-53.0) % RDW (11.5-15.5) % Neutrophils # (1.3-7.7) k/uL Lymphocytes # (1.0-4.8) k/uL PT (9.0-12.0) sec INR (<1.2) BUN (9-20) mg/dL Glucose (74-99) mg/dL POC Glucose (mg/dL) 243 H 161 H 119 H (75-99) mg/dL 01/03/18 01/03/18 01/03/18 Range/Units 06:07 06:07 06:07 WBC 12.8 H (3.8-10.6) k/uL RBC 3.75 L (4.30-5.90) m/uL Hgb 10.1 L (13.0-17.5) gm/dL Hct 32.4 L (39.0-53.0) % RDW 18.9 H (11.5-15.5) % Neutrophils # 11.6 H (1.3-7.7) k/uL Lymphocytes # 0.5 L (1.0-4.8) k/uL PT 23.3 H (9.0-12.0) sec INR 2.6 H (<1.2) BUN 47 H (9-20) mg/dL Glucose 108 H (74-99) mg/dL POC Glucose (mg/dL) (75-99) mg/dL 01/03/18 01/03/18 Range/Units 07:05 09:30 WBC (3.8-10.6) k/uL RBC (4.30-5.90) m/uL Hgb (13.0-17.5) gm/dL Hct (39.0-53.0) % RDW (11.5-15.5) % Neutrophils # (1.3-7.7) k/uL Lymphocytes # (1.0-4.8) k/uL PT (9.0-12.0) sec INR (<1.2) BUN (9-20) mg/dL Glucose (74-99) mg/dL POC Glucose (mg/dL) 162 H 228 H (75-99) mg/dL Microbiology - Last 24 Hours (Table) 12/29/17 22:52 Gram Stain - Final Sputum Sputum Culture - Final Anika albicans Methicillin resist S. aureus 12/29/17 16:11 Blood Culture - Preliminary Blood No Growth after 96 hours Assessment and Plan Plan: 1 acute hypoxic respiratory failure secondary to bilateral pneumonia. The patient presented with severe hypoxic respiratory failure and hypotension and the patient was initially on 100% nonrebreather facemask and he was weaned down to 6 L of oxygen by nasal cannula. Follow-up chest x-ray from today shows persistent infiltration and a CAT scan of the chest is to follow. Remain on examination of Zosyn and Levaquin. Currently off pressors. Sputum culture was positive for MRSA, we will add Vancocomycin 2 sepsis, likely secondary to underlying pneumonia, resuscitated IV fluids and antibiotics and the patient is currently off pressors 3 acute hypotension secondary to sepsis/septic shock and the patient is currently off pressors 4 Coumadin toxicity without evidence of any bleeding. The patient's INR was as high as 7 and he received vitamin K and his INR is down to 1.7 5 chronic kidney disease, stage III, stable, with an improvement in the renal function as the patient is recovering from an acute kidney injury on top of chronic renal failure 6 chronic anemia/anemia of chronic disease 7 morbid obesity with a BMI of 48.6 8 previous history of DVT and pulmonary embolism, recurrent and the patient is a maintained on warfarin outpatient basis, and the repeat ultrasound Doppler of the lower extremity shows persistent clotting of the right lower extremity and the patient will be restarted back on his anticoagulation. 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 The patient is a resident of [facility]. Plan: We'll stop the IV steroids, and switch the patient to oral prednisone. Continue nebulized bronchodilators. Patient remains afebrile. Sputum cultures were positive for MRSA, we will add vancomycin to current antibiotic coverage. Repeat chest x-ray today. Continue with nebulized bronchodilators. I performed a history & physical examination of the patient and discussed their management with my nurse practitioner, Kim Patel. I reviewed the nurse practitioner's note and agree with the documented findings and plan of care. Lung sounds are positive a few scattered rhonchi. The findings and the impression was discussed with the patient. I attest to the documentation by the nurse practitioner. Time with Patient: Less than 30
[2018-01-03 10:51] LABS: Glucose,Whole Blood 229 mg/dL (75-99)
[2018-01-03] MEDS ORDERED: VANCOMYCIN 2,500 MG in SODIUM CHLORIDE 0.9% 500 ML IVPB ONE ×2 (11:30→21:00)
--- NOTE | 2018-01-03 11:40 | P.PN ---
Subjective Patient resting in bed awake and alert continues with cough with sputum. Dr. Dangelo will be consult did for MRSA and Anika in sputum Objective - Vital Signs Vital signs: Vital Signs Temp 97.1 F L 01/03/18 11:13 Pulse 72 01/03/18 11:31 Resp 19 01/03/18 11:29 BP 145/64 01/03/18 11:13 Pulse Ox 96 01/03/18 11:13 Intake & Output 01/02/18 01/03/18 01/03/18 18:59 06:59 18:59 Intake Total 1384 60.516 281.978 Output Total 1600 1350 Balance -216 -1289.484 281.978 Intake: IV 50 20 Invasive Line 5 20 Piperacillin-Tazobactam 3 50 .375 gm In Dextrose/Water 1 50ml.bag @ 12.5 mls/hr IVPB Q8H ALEXANDR Rx#: [id number] Intake, IV Titration 220 60.516 21.978 Amount Insulin Regular 100 unit 60.516 21.978 In Sodium Chloride 0.9% 100 ml @ Titrate IV .Q0M ALEXANDR Rx#:[id number] Sodium Chloride 0.9% 1, 220 000 ml @ 20 mls/hr IV . Q24H ALEXANDR Rx#:[id number] Oral 1114 240 Output: Urine 1600 1350 Uretheral (Schmidt) 1200 Other: Voiding Method Urinal Urinal Urinal Diaper # Voids 1 - Constitutional General appearance: Present: morbidly obese - EENT Eyes: Present: PERRLA Ears: bilateral: normal - Neck Neck: Present: normal ROM - Respiratory Respiratory: bilateral: diminished - Cardiovascular Rhythm: regular - Gastrointestinal General gastrointestinal: Present: soft - Integumentary Integumentary Comment(s): Decubitus to coccyx area stage II chronic Integumentary: Present: normal - Neurologic Neurologic: Present: CNII-XII intact - Musculoskeletal Musculoskeletal: Present: generalized weakness - Psychiatric Psychiatric: Present: A&O x's 3, appropriate affect, intact judgment & insight - Labs CBC & Chem 7: 01/03/18 06:07 01/03/18 06:07 Labs: Abnormal Lab Results - Last 24 Hours (Table) 01/02/18 01/02/18 01/02/18 Range/Units 11:40 17:08 20:50 WBC (3.8-10.6) k/uL RBC (4.30-5.90) m/uL Hgb (13.0-17.5) gm/dL Hct (39.0-53.0) % RDW (11.5-15.5) % Neutrophils # (1.3-7.7) k/uL Lymphocytes # (1.0-4.8) k/uL PT (9.0-12.0) sec INR (<1.2) BUN (9-20) mg/dL Glucose (74-99) mg/dL POC Glucose (mg/dL) 230 H 260 H 299 H (75-99) mg/dL 01/02/18 01/03/18 01/03/18 Range/Units 23:22 00:03 00:34 WBC (3.8-10.6) k/uL RBC (4.30-5.90) m/uL Hgb (13.0-17.5) gm/dL Hct (39.0-53.0) % RDW (11.5-15.5) % Neutrophils # (1.3-7.7) k/uL Lymphocytes # (1.0-4.8) k/uL PT (9.0-12.0) sec INR (<1.2) BUN (9-20) mg/dL Glucose (74-99) mg/dL POC Glucose (mg/dL) 323 H 268 H 265 H (75-99) mg/dL 01/03/18 01/03/18 01/03/18 Range/Units 00:53 03:02 05:37 WBC (3.8-10.6) k/uL RBC (4.30-5.90) m/uL Hgb (13.0-17.5) gm/dL Hct (39.0-53.0) % RDW (11.5-15.5) % Neutrophils # (1.3-7.7) k/uL Lymphocytes # (1.0-4.8) k/uL PT (9.0-12.0) sec INR (<1.2) BUN (9-20) mg/dL Glucose (74-99) mg/dL POC Glucose (mg/dL) 243 H 161 H 119 H (75-99) mg/dL 01/03/18 01/03/18 01/03/18 Range/Units 06:07 06:07 06:07 WBC 12.8 H (3.8-10.6) k/uL RBC 3.75 L (4.30-5.90) m/uL Hgb 10.1 L (13.0-17.5) gm/dL Hct 32.4 L (39.0-53.0) % RDW 18.9 H (11.5-15.5) % Neutrophils # 11.6 H (1.3-7.7) k/uL Lymphocytes # 0.5 L (1.0-4.8) k/uL PT 23.3 H (9.0-12.0) sec INR 2.6 H (<1.2) BUN 47 H (9-20) mg/dL Glucose 108 H (74-99) mg/dL POC Glucose (mg/dL) (75-99) mg/dL 01/03/18 01/03/18 01/03/18 Range/Units 07:05 09:30 10:49 WBC (3.8-10.6) k/uL RBC (4.30-5.90) m/uL Hgb (13.0-17.5) gm/dL Hct (39.0-53.0) % RDW (11.5-15.5) % Neutrophils # (1.3-7.7) k/uL Lymphocytes # (1.0-4.8) k/uL PT (9.0-12.0) sec INR (<1.2) BUN (9-20) mg/dL Glucose (74-99) mg/dL POC Glucose (mg/dL) 162 H 228 H 229 H (75-99) mg/dL Microbiology - Last 24 Hours (Table) 12/29/17 22:52 Gram Stain - Final Sputum Sputum Culture - Final Anika albicans Methicillin resist S. aureus 12/29/17 16:11 Blood Culture - Preliminary Blood No Growth after 96 hours Assessment and Plan Plan: Assessment Acute hypoxic respiratory failure secondary to bilateral pneumonia Sepsis related to pneumonia MRSA Anika Acute hypotension secondary to sepsis Coumadin toxicity resolved Chronic kidney disease stage III Chronic anemia secondary to chronic disease Morbid obesity BMI 48.6 DVT right leg with history of pulmonary embolism Decubitus ulcer stage II chronic BPH COPD History of hypertension History of iron deficiency anemia Coronary disease Gout Chronic constipation Impaired hearing Depression Glaucoma Diabetes type 2 History of aortic aneurysm with endovascular stent Plan Continue consultation with Dr. Stone We'll consult Dr. Dangelo regarding MRSA in sputum
[2018-01-03] MEDS: FERROUS SULFATE 325 MG TAB PO SCH (12:02)
[2018-01-03] MEDS: LEVOFLOXACIN 750 MG TAB PO SCH (12:02)
[2018-01-03] MEDS: NYSTATIN 100,000 UNIT/ML SUSP 500,000 UNIT/5 ML CUP PO SCH ×3 (12:02→21:47)
[2018-01-03] MEDS: SODIUM CHLORIDE 0.9% 1,000 ML IV SCH (12:11)
[2018-01-03 12:26] LABS: Glucose,Whole Blood 215 mg/dL (75-99)
[2018-01-03 12:58] LABS: Glucose,Whole Blood 237 mg/dL (75-99)
--- NOTE | 2018-01-03 15:10 | XR ---
EXAMINATION TYPE: XR chest 1V portable DATE OF EXAM: 01/03/2018 COMPARISON: Prior chest x-ray 12/31/2017 HISTORY: Follow-up pneumonia, cough and congestion TECHNIQUE: frontal view of the chest is obtained on 2 images. FINDINGS: Patient is rotated. Heart remains enlarged. Pulmonary vascularity is prominent. No pneumot horax or pleural effusion evident. There are overlying cardiac leads. Patchy basilar density is noted . IMPRESSION: Rotated exam. Cardiomegaly. Correlate to exclude pulmonary artery hypertension. Possible basilar atelectasis, correlate for pneumonia.
[2018-01-03 16:23] LABS: Glucose,Whole Blood 188 mg/dL (75-99)
[2018-01-03] MEDS: WARFARIN 5 MG TAB PO SCH (17:17)
--- NOTE | 2018-01-03 20:24 | P.CONS ---
History of Present Illness - Reason for Consult Consult date: 01/03/18 - Chief Complaint Altered mental status - History of Present Illness 82-year-old male who presents to Hospital from [facility] presents with difficulties with the change in his mental status and evidence of relative hypoxemia. It is related to the time of his transfer to emergency center that he had been having a declining status for approximately a day and because of his full CODE STATUS was brought into hospital for further intervention. There was evidence of pneumonia by chest x-ray. The patient evidence of progressing sepsis requiring fluid resuscitation and supportive hypotension with norepinephrine occurred. He also is requiring 100% nonrebreather at the time of transfer. The noted the time of arrival to the emergency center he had evidence of Coumadin toxicity with an INR of 7.5 but was not having spontaneous bleeding. The patient was treated with multiple breathing treatments fluid resuscitation and then admission. With evidence of a sputum culture now with MRSA the infectious diseases consultation was requested. Pleasant gentleman is a poor story relates as having shortness of breath but waxing and waning. He has minimal sputum production or hemoptysis. Feels poorly all the time. He is debilitated and is on an air mattress. And is aware that he's developed some skin lesions from his inability to ambulate. Review of Systems 82-year-old male poor historian and not uncomfortable at this time watching a ball game and is able to state who the teams are HEENT:Denies headache or acute visual change. Denies sinus or mouth discomforts. Denies neck stiffness or pain. Denies significant oral cavity pain. Denies difficulty on swallowing. Lungs: Chronic shortness of breath has cough no hemoptysis Cardiovascular: Denies chest pain, chest wall pain, orthopnea, or syncope. Dyspnea with exertion is difficult to determine given his lack of ambulation. Gastrointestinal:Denies nausea, vomiting, diarrhea, constipation, hematemesis, melena, hematochezia. No no significant change of bowel habit noticed. Musculoskeletal: Significant weakness is bedbound Skin: Please note that the patient does have pressure ulcerations of bilateral lower extremity edema Neuro: Denies headache or visual change. Denies any new onset weakness or difficulty with ambulation. Denies falls or seizures. Psychiatric:Denies anxiety or depression. Endocrine: Denies significant fatigue, denies significant weight loss or weight gain. 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 Patient also is known to have abdominal aortic aneurysm-daughter not sure of size.. 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 with a wart to biiliac endovascular stent graft and then aneurysm measuring 10 x 9 cm in size and right iliac endovascular stent and the right common iliac artery aneurysm in addition to a left common iliac artery aneurysm measuring 3.1 cm and 3.0 cm respectively}information in brackets was charted previous admit.At time of this admission on 12-29-17 show card writer was unable to verify the bracketed information w/pt and daughter History of Any Multi-Drug Resistant Organisms: MRSA Year Discovered:: 12/29/17 MDRO Source:: SPUTUM MRSA Past Surgical History: Appendectomy, Hernia Repair, Tonsillectomy Additional Past Surgical History / Comment(s): cataract, hydrocele, :9 stents in legs/ 2 aortic stents", rt ext iliac stent 05/29/16 at [place] Past Anesthesia/Blood Transfusion Reactions: No Reported Reaction Past Psychological History: No Psychological Hx Reported Smoking Status: Former smoker Past Alcohol Use History: None Reported Past Drug Use History: None Reported - Past Family History Mother Family Medical History: Cancer Additional Family Medical History / Comment(s): open heart surgery, CA ovarian and liver, lyme disease Medications and Allergies Home Medications and Allergies Comment(s): Current Medications Acetaminophen (Tylenol Tab) 650 mg PO TID PRN PRN Reason: Mild Pain Last Admin: 12/30/17 15:55 Dose: 650 mg Al Hydroxide/Mg Hydroxide (Maalox) 30 ml PO Q4H PRN PRN Reason: GI Upset Last Admin: 01/03/18 12:02 Dose: 30 ml Albuterol/Ipratropium (Duoneb 0.5 Mg-3 Mg/3 Ml Soln) 3 ml INHALATION RT-Q4H PRN PRN Reason: Shortness Of Breath Or Wheezing Last Admin: 01/03/18 20:04 Dose: 3 ml Allopurinol (Zyloprim) 300 mg PO HS [facility] Last Admin: 01/02/18 21:23 Dose: 300 mg Amiodarone HCl (Cordarone) 200 mg PO DAILY [facility] Last Admin: 01/03/18 09:36 Dose: 200 mg Artificial Tears (Artificial Tear Drops) 1 drops BOTH EYES BID [facility] Last Admin: 01/03/18 09:37 Dose: 1 drops Aspirin (Aspirin) 81 mg PO DAILY [facility] Last Admin: 01/03/18 09:36 Dose: 81 mg Atorvastatin Calcium (Lipitor) 20 mg PO HS [facility] Last Admin: 01/02/18 21:23 Dose: 20 mg Budesonide (Pulmicort) 0.5 mg INHALATION RT-BID [facility] Last Admin: 01/03/18 20:04 Dose: 0.5 mg Fentanyl (Duragesic 100mcg/Hr Patch) 1 patch TRANSDERM Q72H [facility] Last Admin: 01/02/18 12:01 Dose: 1 patch Ferrous Sulfate (Feosol) 325 mg PO DAILY@1200 [facility] Last Admin: 01/03/18 12:02 Dose: 325 mg Gabapentin (Neurontin) 300 mg PO BID [facility] Last Admin: 01/03/18 09:35 Dose: 300 mg Guaifenesin (Mucinex) 600 mg PO Q12H [facility] Last Admin: 01/03/18 09:36 Dose: 600 mg Hydrocortisone (Proctosol-Hc 2.5%) 1 applic RECTAL TID PRN PRN Reason: INFLAMED HERORRHOIDS Piperacillin/Tazobactam/ (Dextrose 3.375 gm/ IV Solution) 50 mls @ 12.5 mls/hr IVPB Q8H [facility] Last Admin: 01/03/18 12:02 Dose: 12.5 mls/hr Sodium Chloride (Saline 0.9%) 1,000 mls @ 20 mls/hr IV .Q24H [facility] Last Admin: 01/03/18 12:11 Dose: 20 mls/hr Insulin Aspart (Novolog) 0 unit SQ ACHS [facility]; Protocol Last Admin: 01/03/18 17:17 Dose: 5 unit Insulin Aspart (Novolog) 10 unit SQ AC-TID [facility] Last Admin: 01/03/18 17:17 Dose: 10 unit Insulin Detemir (Levemir) 24 unit SQ QAM [facility] Last Admin: 01/03/18 09:34 Dose: 24 unit Insulin Detemir (Levemir) 10 unit SQ HS [facility] Last Admin: 01/02/18 22:44 Dose: 10 unit Latanoprost (Xalatan 0.005%) 1 drops BOTH EYES [facility] Last Admin: 01/02/18 21:23 Dose: 1 drops Levofloxacin (Levaquin) 750 mg PO Q24H [facility] Last Admin: 01/03/18 12:02 Dose: 750 mg Magnesium Hydroxide (Milk Of Magnesia) 2,400 mg PO DAILY PRN PRN Reason: Constipation Melatonin (Melatonin) 5 mg PO HS [facility] Last Admin: 01/02/18 21:24 Dose: 5 mg Miscellaneous Information (Magnesium Per Protocol) 1 each MISCELLANE DAILY PRN ; Protocol PRN Reason: Per Protocol Miscellaneous Information (Potassium Per Protocol) 1 each MISCELLANE DAILY PRN ; Protocol PRN Reason: Per Protocol Montelukast Sodium (Singulair) 10 mg PO DAILY [facility] Last Admin: 01/03/18 09:35 Dose: 10 mg Naloxone HCl (Narcan) 0.2 mg IV Q2M PRN PRN Reason: Opioid Reversal Nystatin (Mycostatin Oral Susp) 500,000 unit PO QID [facility] Last Admin: 01/03/18 17:16 Dose: 500,000 unit Pantoprazole Sodium (Protonix) 40 mg IV DAILY [facility] Last Admin: 01/03/18 09:36 Dose: 40 mg Prednisone () 40 mg PO DAILY [facility] Senna/Docusate Sodium (Senokot-S) 2 each PO BID [facility] Last Admin: 01/03/18 09:35 Dose: 2 each Sertraline HCl (Zoloft) 100 mg PO DAILY [facility] Last Admin: 01/03/18 09:35 Dose: 100 mg Silver Sulfadiazine (Silvadene Cream) 1 applic TOPICAL BID [facility] Last Admin: 01/03/18 09:37 Dose: 1 applic Tamsulosin HCl (Flomax) 0.4 mg PO DAILY [facility] Last Admin: 01/03/18 09:35 Dose: 0.4 mg Warfarin Sodium (Coumadin) 5 mg PO DAILY@1800 [facility] Last Admin: 01/03/18 17:17 Dose: 5 mg Home Medications Medication Instructions Recorded Confirmed Type Ferrous Sulfate [Iron (65 MG 325 mg PO DAILY 05/29/16 12/29/17 History Elemental)] Omeprazole 20 mg PO QAM 05/29/16 12/29/17 History Spironolactone-Hctz 25-25Mg 1 tab PO BID 05/29/16 12/29/17 History [Aldactazide 25-25 MG] Allopurinol [Zyloprim] 300 mg PO HS 08/20/16 12/29/17 History Amiodarone [Cordarone] 200 mg PO DAILY 08/20/16 12/29/17 History Aspirin 81 mg PO DAILY 08/20/16 12/29/17 History Atorvastatin [Lipitor] 20 mg PO HS 08/20/16 12/29/17 History Budesonide [Pulmicort] 0.5 mg INHALATION RT-BID 08/20/16 12/29/17 History Carvedilol [Coreg] 3.125 mg PO BID 08/20/16 12/29/17 History Gabapentin [Neurontin] 300 mg PO BID 08/20/16 12/29/17 History Insulin Glargine [Lantus] 16 unit SQ QAM 08/20/16 12/29/17 History Ipratropium-Albuterol Nebulize 3 ml INHALATION RT-TID 08/20/16 12/29/17 History [Duoneb 0.5 mg-3 mg/3 ml Soln] Losartan [Cozaar] 50 mg PO DAILY 08/20/16 12/29/17 History Tamsulosin HCl [Flomax] 0.4 mg PO DAILY 08/20/16 12/29/17 History Acetaminophen Tab [Tylenol Tab] 650 mg PO TID 12/29/17 12/29/17 History Furosemide [Lasix] 40 mg PO DAILY 12/29/17 12/29/17 History Hydrocortisone Pr Cream 1 applic RECTAL TID PRN 12/29/17 12/29/17 History [Proctosol-Hc 2.5%] Latanoprost [Xalatan 0.005%] 1 drop BOTH EYES HS 12/29/17 12/29/17 History Magnesium Hydroxide [Milk of 2,400 mg PO DAILY PRN 12/29/17 12/29/17 History Magnesia] Melatonin 5 mg PO HS 12/29/17 12/29/17 History Montelukast [Singulair] 10 mg PO DAILY 12/29/17 12/29/17 History Mylanta 10 ml PO Q4H PRN 12/29/17 12/29/17 History SILVER sulfADIAZINE Cream 1 applic TOPICAL BID 12/29/17 12/29/17 History [Silvadene 1% Cream] Sennosides-Docusate Sodium 2 tab PO BID 12/29/17 12/29/17 History [Senokot-S] Sertraline HCl [Zoloft] 100 mg PO DAILY 12/29/17 12/29/17 History Tears Naturale Free Solution 1 drop BOTH EYES BID 12/29/17 12/29/17 History Warfarin Sodium 2.5 mg PO HS 12/29/17 12/29/17 History Warfarin Sodium 4 mg PO HS 12/29/17 12/29/17 History fentaNYL 100MCG/HR PATCH 1 patch TRANSDERM Q72H 12/29/17 12/29/17 History [Duragesic 100MCG/HR] guaiFENesin [Mucinex] 600 mg PO Q12H 12/29/17 12/29/17 History Allergies Allergy/AdvReac Type Severity Reaction Status Date / Time No Known Allergies Allergy Verified 12/29/17 14:17 Physical Exam Vitals: Vital Signs Temp Pulse Pulse Pulse Resp BP Pulse Ox 01/03/18 20:06 72 01/03/18 17:24 20 96 01/03/18 15:51 72 01/03/18 15:40 64 01/03/18 15:13 58 L 17 01/03/18 15:07 98.1 F 58 L 17 139/63 96 01/03/18 11:31 72 01/03/18 11:29 55 L 19 01/03/18 11:23 70 01/03/18 11:13 97.1 F L 55 L 19 145/64 96 01/03/18 08:00 97.2 F L 57 L 18 130/62 97 01/03/18 07:48 74 01/03/18 07:35 68 01/03/18 04:00 97.8 F 59 L 18 139/61 95 01/03/18 00:00 97.6 F 68 18 134/64 97 Intake and Output 01/03/18 01/03/18 01/03/18 06:59 14:59 22:59 Intake Total 60.516 977.467 4291 Output Total 1350 500 Balance -1289.484 29.654 1048 Intake: IV 20 10 Invasive Line 5 20 10 Intake, IV Titration 60.516 29.654 Amount Insulin Regular 100 unit 60.516 29.654 In Sodium Chloride 0.9% 100 ml @ Titrate IV .Q0M ALEXANDR Rx#:[id number] Oral 480 1038 Output: Urine 1350 500 Other: Voiding Method Urinal Urinal Urinal Diaper Diaper 82-year-old male with superobesity is not short of breath at the moment relates that the most comfortable he has been all day HEENT: Anicteric conjunctiva are pink and moist nasal mucosa grossly intact without significant lesions, there is no thrush. Neck: The neck is supple without significant lymphadenopathy or thyromegaly. Lungs: Symmetrical air entry is noted. Evidence of basilar crackles. Expiratory wheezes are scattered no stiffness bronchial sounds are noted no dullness or egophony was elicited Heart: Irregular with an audible S1 and S2 soft S4. There is no significant murmur click or rub, PMI was nondisplaced. Abdomen: Obese, Positive bowel sounds soft and nontender without palpable masses or organomegaly. There was no guarding or rebound. Extremities: The upper extremities have excellent pulses they are symmetric, no significant petechiae or telangiectasia. No splinter hemorrhages were noted. She is evidence of the bilateral lower extremity edema without significant open ulcerations being seen at this time. Wraps of been helpful with the edema control Neuro: Awake alert oriented to person place and time. He follows simple commands without difficulty. Memory is poor. Results CBC & Chem 7: 01/03/18 06:07 01/03/18 06:07 Labs: Abnormal Lab Results - Last 24 Hours (Table) 01/02/18 01/02/18 01/03/18 Range/Units 20:50 23:22 00:03 WBC (3.8-10.6) k/uL RBC (4.30-5.90) m/uL Hgb (13.0-17.5) gm/dL Hct (39.0-53.0) % RDW (11.5-15.5) % Neutrophils # (1.3-7.7) k/uL Lymphocytes # (1.0-4.8) k/uL PT (9.0-12.0) sec INR (<1.2) BUN (9-20) mg/dL Glucose (74-99) mg/dL POC Glucose (mg/dL) 299 H 323 H 268 H (75-99) mg/dL 01/03/18 01/03/18 01/03/18 Range/Units 00:34 00:53 03:02 WBC (3.8-10.6) k/uL RBC (4.30-5.90) m/uL Hgb (13.0-17.5) gm/dL Hct (39.0-53.0) % RDW (11.5-15.5) % Neutrophils # (1.3-7.7) k/uL Lymphocytes # (1.0-4.8) k/uL PT (9.0-12.0) sec INR (<1.2) BUN (9-20) mg/dL Glucose (74-99) mg/dL POC Glucose (mg/dL) 265 H 243 H 161 H (75-99) mg/dL 01/03/18 01/03/18 01/03/18 Range/Units 05:37 06:07 06:07 WBC 12.8 H (3.8-10.6) k/uL RBC 3.75 L (4.30-5.90) m/uL Hgb 10.1 L (13.0-17.5) gm/dL Hct 32.4 L (39.0-53.0) % RDW 18.9 H (11.5-15.5) % Neutrophils # 11.6 H (1.3-7.7) k/uL Lymphocytes # 0.5 L (1.0-4.8) k/uL PT 23.3 H (9.0-12.0) sec INR 2.6 H (<1.2) BUN (9-20) mg/dL Glucose (74-99) mg/dL POC Glucose (mg/dL) 119 H (75-99) mg/dL 01/03/18 01/03/18 01/03/18 Range/Units 06:07 07:05 09:30 WBC (3.8-10.6) k/uL RBC (4.30-5.90) m/uL Hgb (13.0-17.5) gm/dL Hct (39.0-53.0) % RDW (11.5-15.5) % Neutrophils # (1.3-7.7) k/uL Lymphocytes # (1.0-4.8) k/uL PT (9.0-12.0) sec INR (<1.2) BUN 47 H (9-20) mg/dL Glucose 108 H (74-99) mg/dL POC Glucose (mg/dL) 162 H 228 H (75-99) mg/dL 01/03/18 01/03/18 01/03/18 Range/Units 10:49 11:59 12:56 WBC (3.8-10.6) k/uL RBC (4.30-5.90) m/uL Hgb (13.0-17.5) gm/dL Hct (39.0-53.0) % RDW (11.5-15.5) % Neutrophils # (1.3-7.7) k/uL Lymphocytes # (1.0-4.8) k/uL PT (9.0-12.0) sec INR (<1.2) BUN (9-20) mg/dL Glucose (74-99) mg/dL POC Glucose (mg/dL) 229 H 215 H 237 H (75-99) mg/dL 01/03/18 Range/Units 16:21 WBC (3.8-10.6) k/uL RBC (4.30-5.90) m/uL Hgb (13.0-17.5) gm/dL Hct (39.0-53.0) % RDW (11.5-15.5) % Neutrophils # (1.3-7.7) k/uL Lymphocytes # (1.0-4.8) k/uL PT (9.0-12.0) sec INR (<1.2) BUN (9-20) mg/dL Glucose (74-99) mg/dL POC Glucose (mg/dL) 188 H (75-99) mg/dL Microbiology - Last 24 Hours (Table) 12/29/17 16:11 Blood Culture - Preliminary Blood No Growth after 120 hours 12/29/17 22:52 Gram Stain - Final Sputum Sputum Culture - Final Anika albicans Methicillin resist S. aureus Laboratory Results WBC 12.8 k/uL (3.8-10.6) H 01/03/18 06:07 RBC 3.75 m/uL (4.30-5.90) L 01/03/18 06:07 Hgb 10.1 gm/dL (13.0-17.5) L 01/03/18 06:07 Hct 32.4 % (39.0-53.0) L 01/03/18 06:07 MCV 86.4 fL (80.0-100.0) 01/03/18 06:07 MCH 26.9 pg (25.0-35.0) 01/03/18 06:07 MCHC 31.1 g/dL (31.0-37.0) 01/03/18 06:07 RDW 18.9 % (11.5-15.5) H 01/03/18 06:07 Plt Count 317 k/uL (150-450) 01/03/18 06:07 Neutrophils % 91 % 01/03/18 06:07 Lymphocytes % 4 % 01/03/18 06:07 Monocytes % 4 % 01/03/18 06:07 Eosinophils % 0 % 01/03/18 06:07 Basophils % 0 % 01/03/18 06:07 Neutrophils # 11.6 k/uL (1.3-7.7) H 01/03/18 06:07 Lymphocytes # 0.5 k/uL (1.0-4.8) L 01/03/18 06:07 Monocytes # 0.5 k/uL (0-1.0) 01/03/18 06:07 Eosinophils # 0.0 k/uL (0-0.7) 01/03/18 06:07 Basophils # 0.1 k/uL (0-0.2) 01/03/18 06:07 Hypochromasia Slight 01/03/18 06:07 Anisocytosis Slight 01/03/18 06:07 PT 23.3 sec (9.0-12.0) H 01/03/18 06:07 INR 2.6 (<1.2) H 01/03/18 06:07 APTT 58.5 sec (22.0-30.0) H 12/29/17 12:32 Sodium 140 mmol/L (137-145) 01/03/18 06:07 Potassium 4.9 mmol/L (3.5-5.1) 01/03/18 06:07 Chloride 107 mmol/L (98-107) 01/03/18 06:07 Carbon Dioxide 28 mmol/L (22-30) 01/03/18 06:07 Anion Gap 5 mmol/L 01/03/18 06:07 BUN 47 mg/dL (9-20) H 01/03/18 06:07 Creatinine 0.99 mg/dL (0.66-1.25) 01/03/18 06:07 Est GFR (CKD-EPI)AfAm 82 (>60 ml/min/1.73 sqM) 01/03/18 06:07 Est GFR (CKD-EPI)NonAf 71 (>60 ml/min/1.73 sqM) 01/03/18 06:07 Glucose 108 mg/dL (74-99) H 01/03/18 06:07 POC Glucose (mg/dL) 188 mg/dL (75-99) H 01/03/18 16:21 POC Glu Social Service Agency Director ID Jenny Hussein 01/03/18 16:[address] Glu mg/dL 214 12/30/17 04:38 Hemoglobin A1c 9.1 % (4.0-6.0) H 12/30/17 04:38 Plasma Lactic Acid Darrick 1.0 mmol/L (0.7-2.0) 12/29/17 12:32 Calcium 8.7 mg/dL (8.4-10.2) 01/03/18 06:07 Phosphorus 2.6 mg/dL (2.5-4.5) 01/03/18 06:07 Magnesium 1.8 mg/dL (1.6-2.3) 01/03/18 06:07 Total Bilirubin 0.5 mg/dL (0.2-1.3) 12/30/17 04:38 AST 57 U/L (17-59) 12/30/17 04:38 ALT 69 U/L (21-72) 12/30/17 04:38 Alkaline Phosphatase 64 U/L (38-126) 12/30/17 04:38 Total Creatine Kinase 659 U/L (55-170) H 12/29/17 12:32 CK-MB (CK-2) 3.2 ng/mL (0.0-2.4) H 12/29/17 12:32 CK-MB (CK-2) Rel Index 0.5 12/29/17 12:32 Troponin I 0.017 ng/mL (0.000-0.034) 12/29/17 12:32 Total Protein 5.4 g/dL (6.3-8.2) L 12/30/17 04:38 Albumin 2.7 g/dL (3.5-5.0) L 12/30/17 04:38 Urine Color Yellow 12/29/17 12:32 Urine Appearance Clear (Clear) 12/29/17 12:32 Urine pH 5.5 (5.0-8.0) 12/29/17 12:32 Ur Specific [place] 1.010 (1.001-1.035) 12/29/17 12:32 Urine Protein Negative (Negative) 12/29/17 12:32 Urine Glucose (UA) Negative (Negative) 12/29/17 12:32 Urine Ketones Negative (Negative) 12/29/17 12:32 Urine Blood Small (Negative) H 12/29/17 12:32 Urine Nitrite Negative (Negative) 12/29/17 12:32 Urine Bilirubin Negative (Negative) 12/29/17 12:32 Urine Urobilinogen <2.0 mg/dL (<2.0) 12/29/17 12:32 Ur Leukocyte Esterase Negative (Negative) 12/29/17 12:32 Urine RBC 3 /hpf (0-5) 12/29/17 12:32 Urine WBC 1 /hpf (0-5) 12/29/17 12:32 Ur Squamous Epith Cells <1 /hpf (0-4) 12/29/17 12:32 Hyaline Casts 15 /lpf (0-2) H 12/29/17 12:32 Urine Mucus Rare /hpf (None) H 12/29/17 12:32 Microbiology 12/29/17 16:11 Blood Blood Culture - Preliminary No Growth after 120 hours 12/29/17 22:52 Sputum Gram Stain - Final 12/29/17 22:52 Sputum Sputum Culture - Final Anika albicans Methicillin resist S. aureus 12/29/17 12:32 Urine,Catheterized Urine Culture - Final Assessment and Plan (1) Acute exacerbation of chronic obstructive airways disease Current Visit: Yes Status: Acute Code(s): J44.1 - CHRONIC OBSTRUCTIVE PULMONARY DISEASE W (ACUTE) EXACERBATION SNOMED Code(s): 857544053 (2) Coagulopathy Current Visit: Yes Status: Acute Code(s): D68.9 - COAGULATION DEFECT, UNSPECIFIED SNOMED Code(s): 53299814 (3) Weakness of both lower limbs Current Visit: No Status: Acute Code(s): M62.81 - MUSCLE WEAKNESS ( GENERALIZED) SNOMED Code(s): 0450002 (4) MRSA pneumonia Narrative/Plan: 82-year-old male presents from outside facility was without evidence of increasing shortness of breath at the time the transfer there is evidence of hypotension requiring fluid resuscitation and norepinephrine for hypotension. He did have IV access placed. There was difficulties with Coumadin coagulopathy at admission which is starting to have improvement. He has multiple medical troubles include his obesity, pulmonary embolus in the past, chronic disease stage III, COPD chronic anemia and has diabetes mellitus type 2. He has had the aortic aneurysm with endovascular grafting also in the past. Presents now as noted with significant shortness of breath computed tomography scan showed evidence of a new pneumonia in sputum culture now has evidence of MRSA being isolated. Blood cultures are negative so far. At this time his creatinine has improved in vancomycin will be added for the treatment of his MRSA pneumonia. Continue with ongoing respiratory treatments as per the pulmonology. There has been some increase in leukocytosis however he has been placed on steroid therapy which is likely increasing this over the last 24 hours. It is improving clinically the patient is improved since admission and that he is no longer 100% on rebreather, and is no longer requiring any vasopressor type therapy. Chest x-rays without any acute change but does show the basilar pneumonia. INR is improved and is now at 2.6. The patient currently is on piperacillin tazobactam which will likely be rapidly de-escalate it if no further positive cultures become available with only the MRSA. Current Visit: Yes Status: Acute Code(s): J15.212 - PNEUMONIA DUE TO METHICILLIN RESISTANT STAPHYLOCOCCUS AUREUS SNOMED Code(s): 151949644930823
[2018-01-03 20:31] LABS: Glucose,Whole Blood 236 mg/dL (75-99)
[2018-01-03] MEDS: ALLOPURINOL 300 MG TAB PO SCH (21:46)
[2018-01-03] MEDS: ATORVASTATIN 20 MG TAB PO SCH (21:46)
[2018-01-03] MEDS: LATANOPROST 0.005% OPHTH DROPS 2.5 ML BTL BOTH EYES SCH (21:47)
[2018-01-03] MEDS: MELATONIN 5 MG TABLET PO SCH (22:06)
[2018-01-04] MEDS ORDERED: VANCOMYCIN 2,250 MG in SODIUM CHLORIDE 0.9% 500 ML IVPB SCH ×2
[2018-01-04] MEDS: PIPERACILLIN-TAZOBACTAM 3.375 GM in DEXTROSE/WATER 1 50ML.BAG IVPB SCH ×3 (03:42→20:26)
[2018-01-04 06:05] LABS: Glucose,Whole Blood 216 mg/dL (75-99)
[2018-01-04] MEDS: INSULIN ASPART 100 UNIT/ML 1 ML 10 ML VIAL SQ SCH ×7 (07:10→20:39)
[2018-01-04 07:48] LABS: INR 2.7 (<1.2); Prothrombin Time 24.4 sec (9.0-12.0)
[2018-01-04] MEDS: IPRATROPIUM-ALBUTEROL 3 ML NEB INHALATION PRN ×2 (08:02→20:57)
[2018-01-04] MEDS: BUDESONIDE 0.5 MG/2 ML NEBU INHALATION SCH ×2 (08:02→20:57)
[2018-01-04] MEDS: NYSTATIN 100,000 UNIT/ML SUSP 500,000 UNIT/5 ML CUP PO SCH ×4 (09:59→20:27)
[2018-01-04] MEDS: PANTOPRAZOLE 40 MG/10 ML VIAL IV SCH (09:59)
[2018-01-04] MEDS: FERROUS SULFATE 325 MG TAB PO SCH (10:00)
[2018-01-04] MEDS: GABAPENTIN 300 MG CAP PO SCH ×2 (10:00→20:26)
[2018-01-04] MEDS: SERTRALINE 100 MG TAB PO SCH (10:00)
[2018-01-04] MEDS: predniSONE 20 MG TAB PO SCH (10:00)
[2018-01-04] MEDS: MONTELUKAST 10 MG TAB PO SCH (10:00)
[2018-01-04] MEDS: ASPIRIN 81 MG PO SCH (10:00)
[2018-01-04] MEDS: TAMSULOSIN 0.4 MG CAP.ER.24H PO SCH (10:00)
[2018-01-04] MEDS: INSULIN DETEMIR 100 UNIT/ML 10 ML VIAL SQ SCH ×2 (10:01→20:39)
[2018-01-04] MEDS: AMIODARONE 200 MG TAB PO SCH (10:01)
[2018-01-04] MEDS: guaiFENesin 600 MG TABLET.ER PO SCH ×2 (10:01→20:26)
[2018-01-04] MEDS: SENNOSIDES-DOCUSATE SODIUM 1 EACH TAB PO SCH ×2 (10:01→20:27)
--- NOTE | 2018-01-04 10:36 | P.PN ---
Subjective Progress Note Date: 01/04/18 Principal diagnosis: Acute dyspnea, chest pain, moderate to severe COPD, CHF with diastolic dysfunction This is a 82-year-old male patient was brought in from [facility] for altered mental status and hypoxemia. According to the nursing staff the patient has been having the symptoms for the past 24 hours and had been hypertensive this morning and he was brought into the emergency department for further treatment. He was oriented to person and place and time and he was considered to be a full code. The patient was complaining of cough and pleurisy according to the nursing staff. He was also having some altered mentation and he was also having a low-grade fever. He was initially taken to [facility] and following that he got moved to [facility] for further investigation and treatment. A chest x-ray that was done in Hospital showed bilateral pulmonary infiltrates consistent with pneumonia and the patient was given a dose of Rocephin and following that he was transferred here. The triple-lumen catheter was also inserted in his right femoral vein and the patient is currently on pressors at 5 g per KG per minute. The patient is currently on 100% nonrebreather facemask. He is alert. He is arousable. He is talking and following simple commands. He is profoundly weak. He just arrived to our emergency department. His white cell count is at 7. He is toxic on Coumadin with an INR of 7.5 units doesn't show any source of bleeding. He has an acute kidney injury with a creatinine of 2 with a BUN of 70. His anion gap is at 10 and his glucoses at 239. He had a CPK of 659. AST and ALP are within normal limits. Urinalysis also was done and it shows 1 WBC 3 RBCs and no bacteria. The patient received a total of 2 L of IV fluids and the 30th and was given here in the emergency department. He was started a combination of antibiotics and currently is on a combination of Zosyn and Levaquin. Is on Lovenox for DVT prophylaxis. He is on DuoNeb about treatments around the clock. IV fluids as maintenance is running at 150 mL an hour. On 12/30/2017 I'm seeing this patient for a follow-up. The patient got transferred to our facility because of pneumonia and sepsis. The patient was treated with broad-spectrum antibiotics including a combination of Zosyn and Levaquin. He was resuscitated IV fluids and currently he is normotensive and the pressors have been weaned off. The chest x-ray from today still showing bilateral pleural parenchymal changes, and I suspect some of the findings of chronic knowing that the previous CAT scan of the chest has shown some bronchiectatic changes and pleural parenchymal scarring and thickening in the right lung base. For that reason, a follow-up CAT scan of the chest will be ordered. Meanwhile, patient is much more comfortable in terms of his breathing. He is currently on high flow oxygen 6 L per minute nasal cannula and he was taken off the 100% nonrebreather facemask. He also underwent Doppler of the lower extremity that do not to be positive and the ultrasound showed a right lower extremity DVT. Noted the patient was already on anticoagulation and the patient presented with a subtherapeutic INR. He was given family grams of vitamin K to drop his INR down to 1.7. He will be restarted back on anticoagulation. Meanwhile, CAT scan of the chest be ordered to characterize the above-mentioned abnormalities and this will be a noncontrast CAT scan 9 and the patient has underlying chronic renal impairment and the patient is recovering from an acute kidney injury with a creatinine being down from 2.03-1.43. The patient clinically is alert and awake. He is, indicating. He is morbidly obese. I was told that the patient is unable to ambulate and he is essentially sedentary and his been taken care of at the medical facility in [facility]. On 12/31/2017 patient seen in follow-up. Patient is awake and alert, he is currently on 4 L per nasal cannula, and pulse ox is at 97%, this can probably be weaned further. He is normal oxygen flow is 2 L/m. Today's exam revealed some crackles at bilateral bases, no fever or chills, follow-up chest x-ray was reviewed by Dr. Stone, and showed basilar atelectasis, patchy basilar density , increased interstitium. Yesterday we obtained a CT chest and there were some chronic bronchiectatic changes and pleural parenchymal scarring and thickening in the right lung base. No ongoing fever or chills, patient is hemodynamically stable, microbiology results have been reviewed, urine and blood culture showed no growth, sputum culture showed Anika albicans. Leukocytosis, patient is currently on IV Zosyn for antibiotic coverage. Today's labs have been reviewed , renal profile is within normal limits, potassium is 3.3 this was replaced per protocol, INR is 1.3, he will be given on a dose of Coumadin 5 mg tonight. On 01/02/2018 patient seen in follow-up. Resting comfortably in bed, he is awake and alert, oriented to person, responding appropriately to questions. Early on 2 L per nasal cannula, his pulse ox is 97%, he is afebrile, hemodynamically stable. He is compliant with his incentive spirometer, he is able to achieve 4510-6860 ML on the today. Lung sounds are positive for a few scattered rhonchi, diminished at the bases. Sputum cultures showed presumptive staph aureus, final culture is pending. Patient is currently on antibiotic coverage in the form of Zosyn. No ongoing fever or chills. On 01/03/2018 patient seen in follow-up on selective care unit. His dyspnea he had an episode of shortness of breath, some chest congestion, relieved with breathing treatment. Patient has been afebrile, continues on 3 L per nasal cannula pulse ox of 97%. Lung sounds are positive for a few scattered rales over right lower base posteriorly. Respirations are even and nonlabored, patient does have a loose congested cough. Today's white count is 12.8, hemoglobin is 10.1, INR is 2.6, electrolytes are within normal limits, BUN is 47 and creatinine 0.99 on insulin drip currently at 3.5 units per hour, maintenance IV fluid 0.9 normal saline at a rate of 20 ML per hour. Patient is still having significant steroid-induced hyperglycemia, and at this time patient can be switched to oral prednisone. On 01/04/2018 patient seen in follow-up on selective care unit. In no acute distress, he still has periodic shortness of breath, occasional cough, at times he is able to bring up some thick yellow colored sputum. In the sputum culture , patient has been started on vancomycin, ID service is following. No fever, no chills, room air pulse ox 95%, he is hemodynamically stable, continues on oral prednisone, nebulized bronchodilators. He is bed bound on chronic basis, he resides in the medical facility, where he requires a mechanical lift for repositioning. Denies chest pain. Lung sounds are positive for bibasilar crackles. Patient remains on Zosyn, Levaquin, in addition to vancomycin. Objective - Vital Signs Vital signs: Vital Signs Temp 98.7 F 01/04/18 08:00 Pulse 63 01/04/18 08:17 Resp 16 01/04/18 08:00 BP 129/55 01/04/18 08:00 Pulse Ox 95 01/04/18 08:00 Intake & Output 01/03/18 01/04/18 01/04/18 18:59 06:59 18:59 Intake Total 1577.654 290 Output Total 500 675 Balance 1077.654 -385 Weight 160.5 kg Intake: IV 30 10 Invasive Line 5 30 Invasive Line 6 10 Intake, IV Titration 29.654 Amount Insulin Regular 100 unit 29.654 In Sodium Chloride 0.9% 100 ml @ Titrate IV .Q0M ALEXANDR Rx#:[id number] Oral 1518 280 Output: Urine 500 675 Other: Voiding Method Urinal Urinal Diaper Diaper # Voids 1 - Exam Obese, the patient is currently the patient is not having any significant rest or distress and is calm and comfortable and is able to speak of. This is. Head exam was generally normal. There was no scleral icterus or corneal arcus. Mucous membranes were moist. Neck was supple and without jugular venous distension, thyromegaly, or carotid bruits. Carotids were easily palpable bilaterally. There was no adenopathy. The patient has significant crowding of the posterior oropharynx and a Mallampati class IV Lungs sounds are diminished bilaterally and the patient has a few scattered rales at the right lower base Cardiac exam revealed the PMI to be normally situated and sized. The rhythm was regular and no extrasystoles were noted during several minutes of auscultation. The first and second heart sounds were normal and physiologic splitting of the second heart sound was noted. There were no murmurs, rubs, clicks, or gallops. Abdomen is soft obese and nontender. No direct tenderness. No rebound tenderness. No guarding. Bowel sounds are hypoactive at the present. Extremities revealed +1 pitting edema there is no cyanosis or clubbing. Pulses are present lower extremity is bilaterally. Neurologic the patient is awake and alert and he has profound weakness in lower extremities and he is unable to ambulate and this is a chronic problem. Otherwise his neurologic exam is nonfocal. Examination of the skin revealed no evidence of significant rashes, suspicious appearing nevi or other concerning lesions. - Labs CBC & Chem 7: 01/03/18 06:07 01/03/18 06:07 Labs: Abnormal Lab Results - Last 24 Hours (Table) 01/03/18 01/03/18 01/03/18 Range/Units 10:49 11:59 12:56 PT (9.0-12.0) sec INR (<1.2) POC Glucose (mg/dL) 229 H 215 H 237 H (75-99) mg/dL 01/03/18 01/03/18 01/04/18 Range/Units 16:21 20:29 06:03 PT (9.0-12.0) sec INR (<1.2) POC Glucose (mg/dL) 188 H 236 H 216 H (75-99) mg/dL 01/04/18 Range/Units 07:05 PT 24.4 H (9.0-12.0) sec INR 2.7 H (<1.2) POC Glucose (mg/dL) (75-99) mg/dL Microbiology - Last 24 Hours (Table) 12/29/17 16:11 Blood Culture - Preliminary Blood No Growth after 120 hours 12/29/17 22:52 Gram Stain - Final Sputum Sputum Culture - Final Anika albicans Methicillin resist S. aureus Assessment and Plan Plan: 1 acute hypoxic respiratory failure secondary to bilateral pneumonia. The patient presented with severe hypoxic respiratory failure and hypotension and the patient was initially on 100% nonrebreather facemask and he was weaned down to 6 L of oxygen by nasal cannula. Follow-up chest x-ray from today shows persistent infiltration and a CAT scan of the chest is to follow. Remain on examination of Zosyn and Levaquin. Currently off pressors. Sputum culture was positive for MRSA, we will add Vancocomycin 2 sepsis, likely secondary to underlying MRSA pneumonia, resuscitated IV fluids and antibiotics and the patient is currently off pressors 3 acute hypotension secondary to sepsis/septic shock and the patient is currently off pressors 4 Coumadin toxicity without evidence of any bleeding. The patient's INR was as high as 7 and he received vitamin K and his INR is down to 1.7 5 chronic kidney disease, stage III, stable, with an improvement in the renal function as the patient is recovering from an acute kidney injury on top of chronic renal failure 6 chronic anemia/anemia of chronic disease 7 morbid obesity with a BMI of 48.6 8 previous history of DVT and pulmonary embolism, recurrent and the patient is a maintained on warfarin outpatient basis, and the repeat ultrasound Doppler of the lower extremity shows persistent clotting of the right lower extremity and the patient will be restarted back on his anticoagulation. 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 The patient is a resident of [facility]. Plan: Continue current antibiotic coverage, he continues on Zosyn, Levaquin and vancomycin. Continue nebulized bronchodilators. Patient remains afebrile. Repeat chest x-ray was reviewed, and showed basilar atelectasis, possibility of pneumonic infiltrates. Continue with oral prednisone. Continue encouraging deep breathing and coughing I performed a history & physical examination of the patient and discussed their management with my nurse practitioner, Kim Patel. I reviewed the nurse practitioner's note and agree with the documented findings and plan of care. Lung sounds are positive a few scattered rhonchi. The findings and the impression was discussed with the patient. I attest to the documentation by the nurse practitioner. Time with Patient: Less than 30
[2018-01-04 11:51] VITALS: BMI 41.9
--- NOTE | 2018-01-04 12:04 | P.PN ---
Subjective Patient states he feels some improvement. Patient is a been evaluated by Dr. Dangelo for MRSA Objective - Vital Signs Vital signs: Vital Signs Temp 98.7 F 01/04/18 08:00 Pulse 63 01/04/18 08:17 Resp 16 01/04/18 08:00 BP 129/55 01/04/18 08:00 Pulse Ox 95 01/04/18 08:00 Intake & Output 01/03/18 01/04/18 01/04/18 18:59 06:59 18:59 Intake Total 1577.654 290 Output Total 500 675 Balance 1077.654 -385 Weight 160.5 kg 160.5 kg Intake: IV 30 10 Invasive Line 5 30 Invasive Line 6 10 Intake, IV Titration 29.654 Amount Insulin Regular 100 unit 29.654 In Sodium Chloride 0.9% 100 ml @ Titrate IV .Q0M ALEXANDR Rx#:[id number] Oral 1518 280 Output: Urine 500 675 Other: Voiding Method Urinal Urinal Diaper Diaper # Voids 1 - Constitutional General appearance: Present: mild distress, morbidly obese - EENT Eyes: Present: PERRLA Ears: bilateral: normal - Neck Neck: Present: normal ROM - Respiratory Respiratory: bilateral: diminished - Cardiovascular Rhythm: regular - Gastrointestinal General gastrointestinal: Present: soft - Integumentary Integumentary: Present: normal - Neurologic Neurologic: Present: CNII-XII intact - Musculoskeletal Musculoskeletal: Present: generalized weakness - Psychiatric Psychiatric: Present: A&O x's 3, appropriate affect, intact judgment & insight - Labs CBC & Chem 7: 01/03/18 06:07 01/03/18 06:07 Labs: Abnormal Lab Results - Last 24 Hours (Table) 01/03/18 01/03/18 01/03/18 Range/Units 11:59 12:56 16:21 PT (9.0-12.0) sec INR (<1.2) POC Glucose (mg/dL) 215 H 237 H 188 H (75-99) mg/dL 01/03/18 01/04/18 01/04/18 Range/Units 20:29 06:03 07:05 PT 24.4 H (9.0-12.0) sec INR 2.7 H (<1.2) POC Glucose (mg/dL) 236 H 216 H (75-99) mg/dL Microbiology - Last 24 Hours (Table) 12/29/17 16:11 Blood Culture - Preliminary Blood No Growth after 120 hours 12/29/17 22:52 Gram Stain - Final Sputum Sputum Culture - Final Anika albicans Methicillin resist S. 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 Dangelo Chief consultation with pulmonology
[2018-01-04 12:11] LABS: Glucose,Whole Blood 177 mg/dL (75-99)
[2018-01-04] MEDS: SODIUM CHLORIDE 0.9% 1,000 ML IV SCH (13:02)
[2018-01-04] MEDS: VANCOMYCIN 2,250 MG in SODIUM CHLORIDE 0.9% 500 ML IVPB SCH (13:09)
[2018-01-04] MEDS: LEVOFLOXACIN 750 MG TAB PO SCH (13:10)
[2018-01-04] MEDS: ARTIFICIAL TEARS-HYPROMELLOSE DROPS 15 ML BTL BOTH EYES SCH ×2 (13:10→20:26)
[2018-01-04 16:36] LABS: Glucose,Whole Blood 273 mg/dL (75-99)
[2018-01-04] MEDS: WARFARIN 5 MG TAB PO SCH (17:37)
[2018-01-04] MEDS: LATANOPROST 0.005% OPHTH DROPS 2.5 ML BTL BOTH EYES SCH (20:26)
[2018-01-04] MEDS: ATORVASTATIN 20 MG TAB PO SCH (20:26)
[2018-01-04] MEDS: ALLOPURINOL 300 MG TAB PO SCH (20:26)
[2018-01-04] MEDS: MELATONIN 5 MG TABLET PO SCH (20:27)
[2018-01-04 20:36] LABS: Glucose,Whole Blood 214 mg/dL (75-99)
[2018-01-05] MEDS: VANCOMYCIN 2,250 MG in SODIUM CHLORIDE 0.9% 500 ML IVPB SCH ×2 (04:43→22:24)
[2018-01-05] MEDS: PIPERACILLIN-TAZOBACTAM 3.375 GM in DEXTROSE/WATER 1 50ML.BAG IVPB SCH ×3 (04:44→22:22)
[2018-01-05] MEDS: ACETAMINOPHEN TAB 325 MG TAB PO PRN ×2 (04:48→10:53)
[2018-01-05 07:23] LABS: Glucose,Whole Blood 193 mg/dL (75-99)
[2018-01-05] MEDS: BUDESONIDE 0.5 MG/2 ML NEBU INHALATION SCH ×2 (07:39→21:05)
[2018-01-05] MEDS: IPRATROPIUM-ALBUTEROL 3 ML NEB INHALATION PRN ×2 (07:39→21:06)
[2018-01-05] MEDS: INSULIN ASPART 100 UNIT/ML 1 ML 10 ML VIAL SQ SCH ×7 (08:40→22:44)
[2018-01-05] MEDS: INSULIN DETEMIR 100 UNIT/ML 10 ML VIAL SQ SCH ×2 (08:49→22:33)
[2018-01-05] MEDS: PANTOPRAZOLE 40 MG/10 ML VIAL IV SCH (08:56)
[2018-01-05] MEDS: predniSONE 20 MG TAB PO SCH (08:56)
[2018-01-05] MEDS: SENNOSIDES-DOCUSATE SODIUM 1 EACH TAB PO SCH ×2 (08:57→22:34)
[2018-01-05] MEDS: ASPIRIN 81 MG PO SCH (08:57)
[2018-01-05] MEDS: SERTRALINE 100 MG TAB PO SCH (08:57)
[2018-01-05] MEDS: MONTELUKAST 10 MG TAB PO SCH (08:57)
[2018-01-05] MEDS: TAMSULOSIN 0.4 MG CAP.ER.24H PO SCH (08:57)
[2018-01-05] MEDS: NYSTATIN 100,000 UNIT/ML SUSP 500,000 UNIT/5 ML CUP PO SCH ×4 (08:57→22:35)
[2018-01-05] MEDS: GABAPENTIN 300 MG CAP PO SCH ×2 (08:57→22:33)
[2018-01-05] MEDS: guaiFENesin 600 MG TABLET.ER PO SCH ×2 (08:57→22:33)
[2018-01-05] MEDS: AMIODARONE 200 MG TAB PO SCH (08:57)
[2018-01-05] MEDS: ARTIFICIAL TEARS-HYPROMELLOSE DROPS 15 ML BTL BOTH EYES SCH ×2 (10:54→22:33)
[2018-01-05 10:55] LABS: Calcium 8.4 mg/dL (8.4-10.2); Potassium 4.6 mmol/L (3.5-5.1)
[2018-01-05] MEDS: FERROUS SULFATE 325 MG TAB PO SCH (10:55)
[2018-01-05 11:13] LABS: Glucose,Whole Blood 204 mg/dL (75-99)
--- NOTE | 2018-01-05 12:13 | P.PN ---
Subjective Patient states he feels improved. Hopeful discharge back to retirement. Awaiting recommendations of infectious disease and pulmonology Objective - Vital Signs Vital signs: Vital Signs Temp 98.0 F 01/05/18 11:20 Pulse 75 01/05/18 11:20 Resp 16 01/05/18 11:20 BP 128/58 01/05/18 11:20 Pulse Ox 93 L 01/05/18 11:20 Intake & Output 01/04/18 01/05/18 01/05/18 18:59 06:59 18:59 Intake Total 1300 Output Total 1300 200 Balance 0 -200 Weight 160.5 kg 188.967 kg Intake: Oral 1300 Output: Urine 1300 200 Other: Voiding Method Urinal Urinal Diaper Diaper # Voids 1 1 1 # Bowel Movements 0 - Constitutional General appearance: Present: morbidly obese - EENT Eyes: Present: PERRLA - Respiratory Respiratory: bilateral: diminished - Cardiovascular Rhythm: regular - Gastrointestinal General gastrointestinal: Present: soft - Integumentary Integumentary: Present: normal - Neurologic Neurologic: Present: CNII-XII intact - Musculoskeletal Musculoskeletal: Present: generalized weakness - Psychiatric Psychiatric: Present: A&O x's 3, appropriate affect, intact judgment & insight - Labs CBC & Chem 7: 01/03/18 06:07 01/05/18 08:54 Labs: Abnormal Lab Results - Last 24 Hours (Table) 01/04/18 01/04/18 01/04/18 Range/Units 12:09 16:34 20:34 BUN (9-20) mg/dL Glucose (74-99) mg/dL POC Glucose (mg/dL) 177 H 273 H 214 H (75-99) mg/dL 01/05/18 01/05/18 01/05/18 Range/Units 07:20 08:54 11:01 BUN 38 H (9-20) mg/dL Glucose 156 H (74-99) mg/dL POC Glucose (mg/dL) 193 H 204 H (75-99) mg/dL Microbiology - Last 24 Hours (Table) 12/29/17 16:11 Blood Culture - Final Blood No Growth after 144 hours Assessment and Plan Plan: Assessment Acute hypoxic respiratory failure secondary to bilateral pneumonia Sepsis secondary to pneumonia positive MRSA Anika Acute hypotension secondary to sepsis Coumadin toxicity corrected Chronic kidney disease stage III 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
--- NOTE | 2018-01-05 12:42 | P.PN ---
Subjective Progress Note Date: 01/05/18 Principal diagnosis: Acute exacerbation of moderate to severe chronic obstructive pulmonary disease and, acute exacerbation of diastolic congestive heart failure. This is a 82-year-old male patient was brought in from [facility] for altered mental status and hypoxemia. According to the nursing staff the patient has been having the symptoms for the past 24 hours and had been hypertensive this morning and he was brought into the emergency department for further treatment. He was oriented to person and place and time and he was considered to be a full code. The patient was complaining of cough and pleurisy according to the nursing staff. He was also having some altered mentation and he was also having a low-grade fever. He was initially taken to [facility] and following that he got moved to [facility] for further investigation and treatment. A chest x-ray that was done in Hospital showed bilateral pulmonary infiltrates consistent with pneumonia and the patient was given a dose of Rocephin and following that he was transferred here. The triple-lumen catheter was also inserted in his right femoral vein and the patient is currently on pressors at 5 g per KG per minute. The patient is currently on 100% nonrebreather facemask. He is alert. He is arousable. He is talking and following simple commands. He is profoundly weak. He just arrived to our emergency department. His white cell count is at 7. He is toxic on Coumadin with an INR of 7.5 units doesn't show any source of bleeding. He has an acute kidney injury with a creatinine of 2 with a BUN of 70. His anion gap is at 10 and his glucoses at 239. He had a CPK of 659. AST and ALP are within normal limits. Urinalysis also was done and it shows 1 WBC 3 RBCs and no bacteria. The patient received a total of 2 L of IV fluids and the 30th and was given here in the emergency department. He was started a combination of antibiotics and currently is on a combination of Zosyn and Levaquin. Is on Lovenox for DVT prophylaxis. He is on DuoNeb about treatments around the clock. IV fluids as maintenance is running at 150 mL an hour. On 12/30/2017 I'm seeing this patient for a follow-up. The patient got transferred to our facility because of pneumonia and sepsis. The patient was treated with broad-spectrum antibiotics including a combination of Zosyn and Levaquin. He was resuscitated IV fluids and currently he is normotensive and the pressors have been weaned off. The chest x-ray from today still showing bilateral pleural parenchymal changes, and I suspect some of the findings of chronic knowing that the previous CAT scan of the chest has shown some bronchiectatic changes and pleural parenchymal scarring and thickening in the right lung base. For that reason, a follow-up CAT scan of the chest will be ordered. Meanwhile, patient is much more comfortable in terms of his breathing. He is currently on high flow oxygen 6 L per minute nasal cannula and he was taken off the 100% nonrebreather facemask. He also underwent Doppler of the lower extremity that do not to be positive and the ultrasound showed a right lower extremity DVT. Noted the patient was already on anticoagulation and the patient presented with a subtherapeutic INR. He was given family grams of vitamin K to drop his INR down to 1.7. He will be restarted back on anticoagulation. Meanwhile, CAT scan of the chest be ordered to characterize the above-mentioned abnormalities and this will be a noncontrast CAT scan 9 and the patient has underlying chronic renal impairment and the patient is recovering from an acute kidney injury with a creatinine being down from 2.03-1.43. The patient clinically is alert and awake. He is, indicating. He is morbidly obese. I was told that the patient is unable to ambulate and he is essentially sedentary and his been taken care of at the medical facility in [facility]. On 12/31/2017 patient seen in follow-up. Patient is awake and alert, he is currently on 4 L per nasal cannula, and pulse ox is at 97%, this can probably be weaned further. He is normal oxygen flow is 2 L/m. Today's exam revealed some crackles at bilateral bases, no fever or chills, follow-up chest x-ray was reviewed by Dr. Stone, and showed basilar atelectasis, patchy basilar density , increased interstitium. Yesterday we obtained a CT chest and there were some chronic bronchiectatic changes and pleural parenchymal scarring and thickening in the right lung base. No ongoing fever or chills, patient is hemodynamically stable, microbiology results have been reviewed, urine and blood culture showed no growth, sputum culture showed Anika albicans. Leukocytosis, patient is currently on IV Zosyn for antibiotic coverage. Today's labs have been reviewed , renal profile is within normal limits, potassium is 3.3 this was replaced per protocol, INR is 1.3, he will be given on a dose of Coumadin 5 mg tonight. The patient is seen again today 01/01/2018 in follow-up on the selective care unit. He is currently resting quite comfortably in bed. He denies any worsening shortness of breath. He has a loose nonproductive cough. No chills or night sweats. He is currently maintaining good O2 saturations in the mid 90s on room air. He's been afebrile. Hemodynamically stable. Sputum culture positive for Anika only. Blood culture no growth. Urine culture no growth. White count 8.7. Hemoglobin 9.5. INR 1.6. Creatinine 1.18. Currently in a negative balance. On 01/02/2018 patient seen in follow-up. Resting comfortably in bed, he is awake and alert, oriented to person, responding appropriately to questions. Early on 2 L per nasal cannula, his pulse ox is 97%, he is afebrile, hemodynamically stable. He is compliant with his incentive spirometer, he is able to achieve 2162-0354 ML on the today. Lung sounds are positive for a few scattered rhonchi, diminished at the bases. Sputum cultures showed presumptive staph aureus, final culture is pending. Patient is currently on antibiotic coverage in the form of Zosyn. No ongoing fever or chills. On 01/03/2018 patient seen in follow-up on selective care unit. His dyspnea he had an episode of shortness of breath, some chest congestion, relieved with breathing treatment. Patient has been afebrile, continues on 3 L per nasal cannula pulse ox of 97%. Lung sounds are positive for a few scattered rales over right lower base posteriorly. Respirations are even and nonlabored, patient does have a loose congested cough. Today's white count is 12.8, hemoglobin is 10.1, INR is 2.6, electrolytes are within normal limits, BUN is 47 and creatinine 0.99 on insulin drip currently at 3.5 units per hour, maintenance IV fluid 0.9 normal saline at a rate of 20 ML per hour. Patient is still having significant steroid-induced hyperglycemia, and at this time patient can be switched to oral prednisone. On 01/04/2018 patient seen in follow-up on selective care unit. In no acute distress, he still has periodic shortness of breath, occasional cough, at times he is able to bring up some thick yellow colored sputum. In the sputum culture , patient has been started on vancomycin, ID service is following. No fever, no chills, room air pulse ox 95%, he is hemodynamically stable, continues on oral prednisone, nebulized bronchodilators. He is bed bound on chronic basis, he resides in the medical facility, where he requires a mechanical lift for repositioning. Denies chest pain. Lung sounds are positive for bibasilar crackles. Patient remains on Zosyn, Levaquin, in addition to vancomycin. The patient is seen again today 01/05/2018 in follow-up on the regular medical floor. He is currently resting quite comfortably in bed. Awake and alert in no acute distress. He is maintaining O2 saturations in the mid 90s on room air now. He's been afebrile. Hemodynamically stable. Sputum culture was positive for MRSA. He remains on vancomycin, Zosyn and Levaquin. ID is on the case as well. Creatinine 0.93. Objective - Vital Signs Vital signs: Vital Signs Temp 98.0 F 01/05/18 11:20 Pulse 75 01/05/18 11:20 Resp 16 01/05/18 11:20 BP 128/58 01/05/18 11:20 Pulse Ox 93 L 01/05/18 11:20 Intake & Output 01/04/18 01/05/18 01/05/18 18:59 06:59 18:59 Intake Total 1300 Output Total 1300 200 Balance 0 -200 Weight 160.5 kg 188.967 kg Intake: Oral 1300 Output: Urine 1300 200 Other: Voiding Method Urinal Urinal Diaper Diaper # Voids 1 1 1 # Bowel Movements 0 - Exam - Exam Obese, the patient is currently the patient is not having any significant shortness of breath and is calm and comfortable. Head exam was generally normal. There was no scleral icterus or corneal arcus. Mucous membranes were moist. Neck was supple and without jugular venous distension, thyromegaly, or carotid bruits. Carotids were easily palpable bilaterally. There was no adenopathy. The patient has significant crowding of the posterior oropharynx and a Mallampati class IV Lungs sounds are diminished bilaterally and the patient has bibasilar crackles heard at the bases. Cardiac exam revealed the PMI to be normally situated and sized. The rhythm was regular and no extrasystoles were noted during several minutes of auscultation. The first and second heart sounds were normal and physiologic splitting of the second heart sound was noted. There were no murmurs, rubs, clicks, or gallops. Abdomen is soft obese and nontender. No direct tenderness. No rebound tenderness. No guarding. Bowel sounds are present. Extremities revealed +1 pitting edema there is no cyanosis or clubbing. Pulses are present lower extremity is bilaterally. Neurologic the patient is awake and alert and he has profound weakness in lower extremities and he is unable to ambulate and this is a chronic problem. Otherwise his neurologic exam is nonfocal. Examination of the skin revealed no evidence of significant rashes, suspicious appearing nevi or other concerning lesions. - Labs CBC & Chem 7: 01/03/18 06:07 01/05/18 08:54 Labs: Abnormal Lab Results - Last 24 Hours (Table) 01/04/18 01/04/18 01/05/18 Range/Units 16:34 20:34 07:20 BUN (9-20) mg/dL Glucose (74-99) mg/dL POC Glucose (mg/dL) 273 H 214 H 193 H (75-99) mg/dL 01/05/18 01/05/18 Range/Units 08:54 11:01 BUN 38 H (9-20) mg/dL Glucose 156 H (74-99) mg/dL POC Glucose (mg/dL) 204 H (75-99) mg/dL Microbiology - Last 24 Hours (Table) 12/29/17 16:11 Blood Culture - Final Blood No Growth after 144 hours Assessment and Plan Assessment: Plan: 1 acute hypoxic respiratory failure secondary to bilateral pneumonia. Positive for MRSA. Remains on vancomycin, Zosyn and Levaquin. Recovered. Currently on room air. 2 sepsis, likely secondary to underlying pneumonia, resuscitated IV fluids and antibiotics and the patient is currently off pressors, recovered. 3 acute hypotension secondary to sepsis/septic shock and the patient is currently off pressors, recovered. 4 Coumadin toxicity without evidence of any bleeding. Recovered. Warfarin since resumed. INR 2.7. 5 chronic kidney disease, stage III, stable, with an improvement in the renal function as the patient is recovering from an acute kidney injury on top of chronic renal failure 6 chronic anemia/anemia of chronic disease 7 morbid obesity with a BMI of 48.6 8 previous history of DVT and pulmonary embolism, recurrent and the patient is a maintained on warfarin outpatient basis, and the repeat ultrasound Doppler of the lower extremity shows persistent clotting of the right lower extremity and the patient will be restarted back on his anticoagulation. 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 The patient is a resident of [facility]. Plan: The patient was seen and evaluated by Dr. Stevenson. The patient is stable from the pulmonary standpoint. Okay to transfer to extended care facility. Antibiotics per ID. Continue with his current treatment plan. I, the cosigning physician, performed a history & physical examination of the patient. Lungs sounds with crackles in the posterior bases. Maintaining good O2 saturations in the 90s on room air. I discussed the assessment and plan of care with my nurse practitioner, Zeny Richards. I attest to the above note as dictated by her.
[2018-01-05] MEDS: LEVOFLOXACIN 750 MG TAB PO SCH (13:30)
[2018-01-05] MEDS: SODIUM CHLORIDE 0.9% 1,000 ML IV SCH (15:45)
[2018-01-05 16:40] LABS: Glucose,Whole Blood 171 mg/dL (75-99)
[2018-01-05] MEDS: WARFARIN 5 MG TAB PO SCH (17:40)
[2018-01-05 20:48] LABS: Glucose,Whole Blood 173 mg/dL (75-99)
[2018-01-05] MEDS: ALLOPURINOL 300 MG TAB PO SCH (22:33)
[2018-01-05] MEDS: ATORVASTATIN 20 MG TAB PO SCH (22:33)
[2018-01-05] MEDS: MELATONIN 5 MG TABLET PO SCH (22:34)
[2018-01-05] MEDS: LATANOPROST 0.005% OPHTH DROPS 2.5 ML BTL BOTH EYES SCH (22:34)
[2018-01-06] MEDS: PIPERACILLIN-TAZOBACTAM 3.375 GM in DEXTROSE/WATER 1 50ML.BAG IVPB SCH ×2 (04:24→12:14)
[2018-01-06 07:17] LABS: Glucose,Whole Blood 218 mg/dL (75-99)
[2018-01-06 07:25] VITALS: RESP 20
[2018-01-06] MEDS: INSULIN ASPART 100 UNIT/ML 1 ML 10 ML VIAL SQ SCH ×6 (08:11→17:34)
[2018-01-06] MEDS: BUDESONIDE 0.5 MG/2 ML NEBU INHALATION SCH (08:11)
[2018-01-06] MEDS: IPRATROPIUM-ALBUTEROL 3 ML NEB INHALATION PRN (08:11)
[2018-01-06] MEDS: guaiFENesin 600 MG TABLET.ER PO SCH (08:14)
[2018-01-06] MEDS: ASPIRIN 81 MG PO SCH (08:14)
[2018-01-06] MEDS: ARTIFICIAL TEARS-HYPROMELLOSE DROPS 15 ML BTL BOTH EYES SCH (08:14)
[2018-01-06] MEDS: predniSONE 20 MG TAB PO SCH (08:15)
[2018-01-06] MEDS: PANTOPRAZOLE 40 MG/10 ML VIAL IV SCH (08:15)
[2018-01-06] MEDS: MONTELUKAST 10 MG TAB PO SCH (08:15)
[2018-01-06] MEDS: GABAPENTIN 300 MG CAP PO SCH (08:15)
[2018-01-06] MEDS: NYSTATIN 100,000 UNIT/ML SUSP 500,000 UNIT/5 ML CUP PO SCH ×3 (08:15→17:34)
[2018-01-06] MEDS: TAMSULOSIN 0.4 MG CAP.ER.24H PO SCH (08:16)
[2018-01-06] MEDS: SERTRALINE 100 MG TAB PO SCH (08:16)
[2018-01-06] MEDS: SENNOSIDES-DOCUSATE SODIUM 1 EACH TAB PO SCH (08:21)
[2018-01-06] MEDS ORDERED: PERMETHRIN 1% CREME RINSE 59 ML LIQUID TOPICAL ONE (10:00)
[2018-01-06] MEDS: AMIODARONE 200 MG TAB PO SCH (11:16)
[2018-01-06 11:21] LABS: Glucose,Whole Blood 226 mg/dL (75-99)
[2018-01-06] MEDS: FERROUS SULFATE 325 MG TAB PO SCH (11:26)
[2018-01-06] MEDS ORDERED: VANCOMYCIN TROUGH DUE 1 EACH MISC MISCELLANE ONE (12:00)
[2018-01-06] MEDS: INSULIN DETEMIR 100 UNIT/ML 10 ML VIAL SQ SCH (12:14)
[2018-01-06] MEDS: LEVOFLOXACIN 750 MG TAB PO SCH (12:16)
[2018-01-06] MEDS: VANCOMYCIN 2,250 MG in SODIUM CHLORIDE 0.9% 500 ML IVPB SCH (13:04)
[2018-01-06 13:49] VITALS: BP 113/52; PULSE 64; TEMP 97.3
--- NOTE | 2018-01-06 14:14 | P.DS ---
Providers Date of admission: 12/29/17 12:30 Expected date of discharge: 01/06/18 Attending physician: Shar Piper Consults: 12/29/17 12:24 Consult Physician Routine Consulting Provider: Arcadio Sanchez Consult Reason/Comments: icu Do you want consulting provider notified?: Yes 01/03/18 10:52 Consult Physician Urgent Consulting Provider: Gregg Dangelo Consult Reason/Comments: MRSA in sputum Do you want consulting provider notified?: Yes Primary care physician: Shar Piper Hospital Course: 82-year-old male was [facility]. Patient was found to be in a respiratory failure treated the intensive care unit treated by Dr. Stone and Dr. Dangelo. Patient is now stabilized and ready for transfer back to [facility] Assessment acute hypoxic respiratory failure secondary bilateral pneumonia sepsis secondary to pneumonia M RSA Anika acute hypotension secondary to sepsis Coumadin toxicity corrected chronic kidney disease stage III chronic anemia secondary to chronic disease morbid obesity BMI 48.6 right DVT history of pulmonary embolism decubitus ulcers stage II BPH COPD history hypertension history of iron deficiency anemia coronary disease gout chronic constipation hearing impaired hyperlipidemia depression glaucoma diabetes type II history of aortic aneurysm post endovascular stent Plan continue Bactrim call medication May return to [facility] in [place] Patient Condition at Discharge: Critical Plan - Discharge Summary Discharge Rx Participant: No New Discharge Prescriptions: New Sulfamethox-Tmp 800-160Mg [Bactrim DS 800-160 mg] 1 tab PO Q12HR #14 tab Insulin Aspart [NovoLOG (formulary)] 10 unit SQ AC-TID vial Nystatin 100,000 Unit/ml Susp [Mycostatin Oral Susp] 500,000 unit PO QID cup predniSONE 40 mg PO DAILY tab Sulfamethox-Tmp 800-160Mg [Bactrim DS 800-160 mg] 1 tab PO Q12HR 10 Days #20 tab Continue Spironolactone-Hctz 25-25Mg [Aldactazide 25-25 MG] 1 tab PO BID Omeprazole 20 mg PO QAM Ferrous Sulfate [Iron (65 MG Elemental)] 325 mg PO DAILY Allopurinol [Zyloprim] 300 mg PO HS Tamsulosin HCl [Flomax] 0.4 mg PO DAILY Gabapentin [Neurontin] 300 mg PO BID Budesonide [Pulmicort] 0.5 mg INHALATION RT-BID Atorvastatin [Lipitor] 20 mg PO HS Insulin Glargine [Lantus] 16 unit SQ QAM Ipratropium-Albuterol Nebulize [Duoneb 0.5 mg-3 mg/3 ml Soln] 3 ml INHALATION RT-TID Aspirin 81 mg PO DAILY Amiodarone [Cordarone] 200 mg PO DAILY Losartan [Cozaar] 50 mg PO DAILY Carvedilol [Coreg] 3.125 mg PO BID SILVER sulfADIAZINE Cream [Silvadene 1% Cream] 1 applic TOPICAL BID Sertraline HCl [Zoloft] 100 mg PO DAILY Sennosides-Docusate Sodium [Senokot-S] 2 tab PO BID Hydrocortisone Pr Cream [Proctosol-Hc 2.5%] 1 applic RECTAL TID PRN PRN Reason: INFLAMED HERORRHOIDS Mylanta 10 ml PO Q4H PRN PRN Reason: Gi Upset Latanoprost [Xalatan 0.005%] 1 drop BOTH EYES HS Furosemide [Lasix] 40 mg PO DAILY Montelukast [Singulair] 10 mg PO DAILY Melatonin 5 mg PO HS Magnesium Hydroxide [Milk of Magnesia] 2,400 mg PO DAILY PRN PRN Reason: Constipation guaiFENesin [Mucinex] 600 mg PO Q12H fentaNYL 100MCG/HR PATCH [Duragesic 100MCG/HR] 1 patch TRANSDERM Q72H Warfarin Sodium 2.5 mg PO HS Acetaminophen Tab [Tylenol] 650 mg PO TID Tears Naturale Free Solution 1 drop BOTH EYES BID Discontinued Warfarin Sodium 4 mg PO HS Discharge Medication List Ferrous Sulfate [Iron (65 MG Elemental)] 325 mg PO DAILY 05/29/16 [History] Omeprazole 20 mg PO QAM 05/29/16 [History] Spironolactone-Hctz 25-25Mg [Aldactazide 25-25 MG] 1 tab PO BID 05/29/16 [ History] Allopurinol [Zyloprim] 300 mg PO HS 08/20/16 [History] Amiodarone [Cordarone] 200 mg PO DAILY 08/20/16 [History] Aspirin 81 mg PO DAILY 08/20/16 [History] Atorvastatin [Lipitor] 20 mg PO HS 08/20/16 [History] Budesonide [Pulmicort] 0.5 mg INHALATION RT-BID 08/20/16 [History] Carvedilol [Coreg] 3.125 mg PO BID 08/20/16 [History] Gabapentin [Neurontin] 300 mg PO BID 08/20/16 [History] Insulin Glargine [Lantus] 16 unit SQ QAM 08/20/16 [History] Ipratropium-Albuterol Nebulize [Duoneb 0.5 mg-3 mg/3 ml Soln] 3 ml INHALATION RT -TID 08/20/16 [History] Losartan [Cozaar] 50 mg PO DAILY 08/20/16 [History] Tamsulosin HCl [Flomax] 0.4 mg PO DAILY 08/20/16 [History] Acetaminophen Tab [Tylenol] 650 mg PO TID 12/29/17 [History] Furosemide [Lasix] 40 mg PO DAILY 12/29/17 [History] Hydrocortisone Pr Cream [Proctosol-Hc 2.5%] 1 applic RECTAL TID PRN 12/29/17 [ History] Latanoprost [Xalatan 0.005%] 1 drop BOTH EYES HS 12/29/17 [History] Magnesium Hydroxide [Milk of Magnesia] 2,400 mg PO DAILY PRN 12/29/17 [History] Melatonin 5 mg PO HS 12/29/17 [History] Montelukast [Singulair] 10 mg PO DAILY 12/29/17 [History] Mylanta 10 ml PO Q4H PRN 12/29/17 [History] SILVER sulfADIAZINE Cream [Silvadene 1% Cream] 1 applic TOPICAL BID 12/29/17 [ History] Sennosides-Docusate Sodium [Senokot-S] 2 tab PO BID 12/29/17 [History] Sertraline HCl [Zoloft] 100 mg PO DAILY 12/29/17 [History] Tears Naturale Free Solution 1 drop BOTH EYES BID 12/29/17 [History] Warfarin Sodium 2.5 mg PO HS 12/29/17 [History] fentaNYL 100MCG/HR PATCH [Duragesic 100MCG/HR] 1 patch TRANSDERM Q72H 12/29/17 [ History] guaiFENesin [Mucinex] 600 mg PO Q12H 12/29/17 [History] Insulin Aspart [NovoLOG (formulary)] 10 unit SQ AC-TID vial 01/06/18 [Rx] Nystatin 100,000 Unit/ml Susp [Mycostatin Oral Susp] 500,000 unit PO QID cup [Rx] Sulfamethox-Tmp 800-160Mg [Bactrim DS 800-160 mg] 1 tab PO Q12HR #14 tab [Rx] Sulfamethox-Tmp 800-160Mg [Bactrim DS 800-160 mg] 1 tab PO Q12HR 10 Days #20 tab 01/06/18 [Rx] predniSONE 40 mg PO DAILY tab 01/06/18 [Rx] Follow up Appointment(s)/Referral(s): Shar Piper MD [Primary Care Provider] - 1-2 days Activity/Diet/Wound Care/Special Instructions: [facility]
--- NOTE | 2018-01-06 14:45 | P.PN ---
Subjective Progress Note Date: 01/06/18 Principal diagnosis: Acute hypoxic respiratory failure secondary to bilateral pneumonia secondary to MRSA. This is a 82-year-old male patient [facility] for altered mental status and hypoxemia. According to the nursing staff the patient has been having the symptoms for the past 24 hours and had been hypertensive this morning and he was brought into the emergency department for further treatment. He was oriented to person and place and time and he was considered to be a full code. The patient was complaining of cough and pleurisy according to the nursing staff. He was also having some altered mentation and he was also having a low-grade fever. He was initially taken to [facility] and following that he got moved to [facility] for further investigation and treatment. A chest x-ray that was done in Hospital showed bilateral pulmonary infiltrates consistent with pneumonia and the patient was given a dose of Rocephin and following that he was transferred here. The triple-lumen catheter was also inserted in his right femoral vein and the patient is currently on pressors at 5 g per KG per minute. The patient is currently on 100% nonrebreather facemask. He is alert. He is arousable. He is talking and following simple commands. He is profoundly weak. He just arrived to our emergency department. His white cell count is at 7. He is toxic on Coumadin with an INR of 7.5 units doesn't show any source of bleeding. He has an acute kidney injury with a creatinine of 2 with a BUN of 70. His anion gap is at 10 and his glucoses at 239. He had a CPK of 659. AST and ALP are within normal limits. Urinalysis also was done and it shows 1 WBC 3 RBCs and no bacteria. The patient received a total of 2 L of IV fluids and the 30th and was given here in the emergency department. He was started a combination of antibiotics and currently is on a combination of Zosyn and Levaquin. Is on Lovenox for DVT prophylaxis. He is on DuoNeb about treatments around the clock. IV fluids as maintenance is running at 150 mL an hour. On 12/30/2017 I'm seeing this patient for a follow-up. The patient got transferred to our facility because of pneumonia and sepsis. The patient was treated with broad-spectrum antibiotics including a combination of Zosyn and Levaquin. He was resuscitated IV fluids and currently he is normotensive and the pressors have been weaned off. The chest x-ray from today still showing bilateral pleural parenchymal changes, and I suspect some of the findings of chronic knowing that the previous CAT scan of the chest has shown some bronchiectatic changes and pleural parenchymal scarring and thickening in the right lung base. For that reason, a follow-up CAT scan of the chest will be ordered. Meanwhile, patient is much more comfortable in terms of his breathing. He is currently on high flow oxygen 6 L per minute nasal cannula and he was taken off the 100% nonrebreather facemask. He also underwent Doppler of the lower extremity that do not to be positive and the ultrasound showed a right lower extremity DVT. Noted the patient was already on anticoagulation and the patient presented with a subtherapeutic INR. He was given family grams of vitamin K to drop his INR down to 1.7. He will be restarted back on anticoagulation. Meanwhile, CAT scan of the chest be ordered to characterize the above-mentioned abnormalities and this will be a noncontrast CAT scan 9 and the patient has underlying chronic renal impairment and the patient is recovering from an acute kidney injury with a creatinine being down from 2.03-1.43. The patient clinically is alert and awake. He is, indicating. He is morbidly obese. I was told that the patient is unable to ambulate and he is essentially sedentary and his been taken care of at the medical facility in [facility]. On 12/31/2017 patient seen in follow-up. Patient is awake and alert, he is currently on 4 L per nasal cannula, and pulse ox is at 97%, this can probably be weaned further. He is normal oxygen flow is 2 L/m. Today's exam revealed some crackles at bilateral bases, no fever or chills, follow-up chest x-ray was reviewed by Dr. Stone, and showed basilar atelectasis, patchy basilar density , increased interstitium. Yesterday we obtained a CT chest and there were some chronic bronchiectatic changes and pleural parenchymal scarring and thickening in the right lung base. No ongoing fever or chills, patient is hemodynamically stable, microbiology results have been reviewed, urine and blood culture showed no growth, sputum culture showed Anika albicans. Leukocytosis, patient is currently on IV Zosyn for antibiotic coverage. Today's labs have been reviewed , renal profile is within normal limits, potassium is 3.3 this was replaced per protocol, INR is 1.3, he will be given on a dose of Coumadin 5 mg tonight. The patient is seen again today 01/01/2018 in follow-up on the selective care unit. He is currently resting quite comfortably in bed. He denies any worsening shortness of breath. He has a loose nonproductive cough. No chills or night sweats. He is currently maintaining good O2 saturations in the mid 90s on room air. He's been afebrile. Hemodynamically stable. Sputum culture positive for Anika only. Blood culture no growth. Urine culture no growth. White count 8.7. Hemoglobin 9.5. INR 1.6. Creatinine 1.18. Currently in a negative balance. On 01/02/2018 patient seen in follow-up. Resting comfortably in bed, he is awake and alert, oriented to person, responding appropriately to questions. Early on 2 L per nasal cannula, his pulse ox is 97%, he is afebrile, hemodynamically stable. He is compliant with his incentive spirometer, he is able to achieve 4313-6830 ML on the today. Lung sounds are positive for a few scattered rhonchi, diminished at the bases. Sputum cultures showed presumptive staph aureus, final culture is pending. Patient is currently on antibiotic coverage in the form of Zosyn. No ongoing fever or chills. On 01/03/2018 patient seen in follow-up on [facility] care unit. His dyspnea he had an episode of shortness of breath, some chest congestion, relieved with breathing treatment. Patient has been afebrile, continues on 3 L per nasal cannula pulse ox of 97%. Lung sounds are positive for a few scattered rales over right lower base posteriorly. Respirations are even and nonlabored, patient does have a loose congested cough. Today's white count is 12.8, hemoglobin is 10.1, INR is 2.6, electrolytes are within normal limits, BUN is 47 and creatinine 0.99 on insulin drip currently at 3.5 units per hour, maintenance IV fluid 0.9 normal saline at a rate of 20 ML per hour. Patient is still having significant steroid-induced hyperglycemia, and at this time patient can be switched to oral prednisone. On 01/04/2018 patient seen in follow-up on selective care unit. In no acute distress, he still has periodic shortness of breath, occasional cough, at times he is able to bring up some thick yellow colored sputum. In the sputum culture , patient has been started on vancomycin, ID service is following. No fever, no chills, room air pulse ox 95%, he is hemodynamically stable, continues on oral prednisone, nebulized bronchodilators. He is bed bound on chronic basis, he resides in the medical facility, where he requires a mechanical lift for repositioning. Denies chest pain. Lung sounds are positive for bibasilar crackles. Patient remains on Zosyn, Levaquin, in addition to vancomycin. The patient is seen again today 01/05/2018 in follow-up on the regular medical floor. He is currently resting quite comfortably in bed. Awake and alert in no acute distress. He is maintaining O2 saturations in the mid 90s on room air now. He's been afebrile. Hemodynamically stable. Sputum culture was positive for MRSA. He remains on vancomycin, Zosyn and Levaquin. ID is on the case as well. Creatinine 0.93. Reevaluated today on 01/06/2018, doing well, relatively asymptomatic, no cough no wheezing no shortness of breath, remains on antibiotics as per infectious disease, and I felt the patient could be discharged home, however antibiotics are to be addressed by the infectious disease specialist on the case. No active pulmonary symptoms at present. Patient will definitely need placement. Objective - Vital Signs Vital signs: Vital Signs Temp 97.3 F L 01/06/18 13:48 Pulse 64 01/06/18 13:48 Resp 20 01/06/18 13:48 BP 113/52 01/06/18 13:48 Pulse Ox 95 01/06/18 13:48 Intake & Output 01/05/18 01/06/18 01/06/18 18:59 06:59 18:59 Intake Total 1440 240 Output Total 1300 550 Balance 140 -310 Weight 188.967 kg Intake: Oral 1440 240 Output: Urine 1300 550 Other: Voiding Method Urinal Urinal Urinal Diaper Diaper Diaper # Voids 1 1 - Exam PHYSICAL EXAM: GENERAL: Revealed an 82-year-old white male morbidly obese, in no distress. HEENT: Conjunctivae normal. eyes normal. NECK: No JVD. Supple CARDIOVASCULAR: S1, S2 muffled. No murmur RESPIRATION: Diminished at the bases, no rhonchi, no wheezes. ABDOMEN: Obese Soft, nontender . .Bowel sounds heard. LEGS: No edema. no swelling PSYCHIATRY: Alert and oriented 3, mood and affect normal. NERVOUS SYSTEM: . Diffuse weakness No focal deficits. Skin: no ulcer no rash Joints: No active swelling. No inflammation. - Labs CBC & Chem 7: 01/03/18 06:07 01/05/18 08:54 Labs: Abnormal Lab Results - Last 24 Hours (Table) 01/05/18 01/05/18 01/06/18 Range/Units 16:39 20:47 07:16 POC Glucose (mg/dL) 171 H 173 H 218 H (75-99) mg/dL 01/06/18 Range/Units 11:20 POC Glucose (mg/dL) 226 H (75-99) mg/dL Assessment and Plan Assessment: 1 acute hypoxic respiratory failure secondary to bilateral pneumonia. Positive for MRSA. Remains on vancomycin, Zosyn and Levaquin. Recovered. Currently on room air. 2 sepsis, likely secondary to underlying pneumonia, resuscitated IV fluids and antibiotics and the patient is currently off pressors, recovered. 3 acute hypotension secondary to sepsis/septic shock and the patient is currently off pressors, recovered. 4 Coumadin toxicity without evidence of any bleeding. Recovered. Warfarin since resumed. INR 2.7. 5 chronic kidney disease, stage III, stable, with an improvement in the renal function as the patient is recovering from an acute kidney injury on top of chronic renal failure 6 chronic anemia/anemia of chronic disease 7 morbid obesity with a BMI of 48.6 8 previous history of DVT and pulmonary embolism, recurrent and the patient is a maintained on warfarin outpatient basis, and the repeat ultrasound Doppler of the lower extremity shows persistent clotting of the right lower extremity and the patient will be restarted back on his anticoagulation. 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 The patient is a resident of [facility]. Plan: Patient was cleared from our perspective for discharge, infectious disease to address antibiotics, will follow on when necessary basis. Time with Patient: Less than 30
[2018-01-06 17:13] LABS: Glucose,Whole Blood 239 mg/dL (75-99)
[2018-01-06] MEDS: SODIUM CHLORIDE 0.9% 1,000 ML IV SCH (17:26)
[2018-01-06] MEDS: WARFARIN 5 MG TAB PO SCH (17:32)
--- NOTE | 2018-01-06 23:07 | P.PN ---
Subjective Progress Note Date: 01/06/18 82-year-old male who presents to Hospital from [facility] presents with difficulties with the change in his mental status and evidence of relative hypoxemia. It is related to the time of his transfer to emergency center that he had been having a declining status for approximately a day and because of his full CODE STATUS was brought into hospital for further intervention. There was evidence of pneumonia by chest x-ray. The patient evidence of progressing sepsis requiring fluid resuscitation and supportive hypotension with norepinephrine occurred. He also is requiring 100% nonrebreather at the time of transfer. The noted the time of arrival to the emergency center he had evidence of Coumadin toxicity with an INR of 7.5 but was not having spontaneous bleeding. The patient was treated with multiple breathing treatments fluid resuscitation and then admission. With evidence of a sputum culture now with MRSA the infectious diseases consultation was requested. Pleasant gentleman is a poor story relates as having shortness of breath but waxing and waning. He has minimal sputum production or hemoptysis. Feels poorly all the time. He is debilitated and is on an air mattress. And is aware that he's developed some skin lesions from his inability to ambulate. 01/06/2018 the patient is having significant improvement. His shortness of breath is feeling better. He will going back to the [facility] care facility later today. Objective - Vital Signs Vital signs: Vital Signs Temp 97.3 F L 01/06/18 13:48 Pulse 64 01/06/18 13:48 Resp 20 01/06/18 13:48 BP 113/52 01/06/18 13:48 Pulse Ox 95 01/06/18 13:48 Intake & Output 01/06/18 01/06/18 01/07/18 06:59 18:59 06:59 Intake Total 240 550 Output Total 550 Balance -310 550 Intake: IV 50 Piperacillin-Tazobactam 3 50 .375 gm In Dextrose/Water 1 50ml.bag @ 12.5 mls/hr IVPB Q8H ALEXANDR Rx#: [id number] Intake, IV Titration 500 Amount Vancomycin 2,250 mg In 500 Sodium Chloride 0.9% 500 ml @ 167 mls/hr IVPB Q18H ALEXANDR Rx#:[id number] Oral 240 Output: Urine 550 Other: Voiding Method Urinal Urinal Diaper Diaper # Voids 1 - Exam 82-year-old male with superobesity is not short of breath at the moment relates that the most comfortable he has been all day HEENT: Anicteric conjunctiva are pink and moist nasal mucosa grossly intact without significant lesions, there is no thrush. Neck: The neck is supple without significant lymphadenopathy or thyromegaly. Lungs: Symmetrical air entry is noted. Evidence of basilar crackles. Expiratory wheezes are scattered no stiffness bronchial sounds are noted no dullness or egophony was elicited Heart: Irregular with an audible S1 and S2 soft S4. There is no significant murmur click or rub, PMI was nondisplaced. Abdomen: Obese, Positive bowel sounds soft and nontender without palpable masses or organomegaly. There was no guarding or rebound. Extremities: The upper extremities have excellent pulses they are symmetric, no significant petechiae or telangiectasia. No splinter hemorrhages were noted. She is evidence of the bilateral lower extremity edema without significant open ulcerations being seen at this time. Wraps of been helpful with the edema control Neuro: Awake alert oriented to person place and time. He follows simple commands without difficulty. Memory is poor. - Labs CBC & Chem 7: 01/03/18 06:07 01/05/18 08:54 Labs: Abnormal Lab Results - Last 24 Hours (Table) 01/06/18 01/06/18 01/06/18 Range/Units 07:16 11:20 17:11 POC Glucose (mg/dL) 218 H 226 H 239 H (75-99) mg/dL Laboratory Results WBC 12.8 k/uL (3.8-10.6) H 01/03/18 06:07 RBC 3.75 m/uL (4.30-5.90) L 01/03/18 06:07 Hgb 10.1 gm/dL (13.0-17.5) L 01/03/18 06:07 Hct 32.4 % (39.0-53.0) L 01/03/18 06:07 MCV 86.4 fL (80.0-100.0) 01/03/18 06:07 MCH 26.9 pg (25.0-35.0) 01/03/18 06:07 MCHC 31.1 g/dL (31.0-37.0) 01/03/18 06:07 RDW 18.9 % (11.5-15.5) H 01/03/18 06:07 Plt Count 317 k/uL (150-450) 01/03/18 06:07 Neutrophils % 91 % 01/03/18 06:07 Lymphocytes % 4 % 01/03/18 06:07 Monocytes % 4 % 01/03/18 06:07 Eosinophils % 0 % 01/03/18 06:07 Basophils % 0 % 01/03/18 06:07 Neutrophils # 11.6 k/uL (1.3-7.7) H 01/03/18 06:07 Lymphocytes # 0.5 k/uL (1.0-4.8) L 01/03/18 06:07 Monocytes # 0.5 k/uL (0-1.0) 01/03/18 06:07 Eosinophils # 0.0 k/uL (0-0.7) 01/03/18 06:07 Basophils # 0.1 k/uL (0-0.2) 01/03/18 06:07 Hypochromasia Slight 01/03/18 06:07 Anisocytosis Slight 01/03/18 06:07 PT 24.4 sec (9.0-12.0) H 01/04/18 07:05 INR 2.7 (<1.2) H 01/04/18 07:05 APTT 58.5 sec (22.0-30.0) H 12/29/17 12:32 Sodium 137 mmol/L (137-145) 01/05/18 08:54 Potassium 4.6 mmol/L (3.5-5.1) 01/05/18 08:54 Chloride 106 mmol/L (98-107) 01/05/18 08:54 Carbon Dioxide 22 mmol/L (22-30) 01/05/18 08:54 Anion Gap 9 mmol/L 01/05/18 08:54 BUN 38 mg/dL (9-20) H 01/05/18 08:54 Creatinine 0.93 mg/dL (0.66-1.25) 01/05/18 08:54 Est GFR (CKD-EPI)AfAm 88 (>60 ml/min/1.73 sqM) 01/05/18 08:54 Est GFR (CKD-EPI)NonAf 76 (>60 ml/min/1.73 sqM) 01/05/18 08:54 Glucose 156 mg/dL (74-99) H 01/05/18 08:54 POC Glucose (mg/dL) 239 mg/dL (75-99) H 01/06/18 17:11 POC Glu Yardage Control Operator Zonia Gallego 01/06/18 17:[address] Glu mg/dL 214 12/30/17 04:38 Hemoglobin A1c 9.1 % (4.0-6.0) H 12/30/17 04:38 Plasma Lactic Acid Darrick 1.0 mmol/L (0.7-2.0) 12/29/17 12:32 Calcium 8.4 mg/dL (8.4-10.2) 01/05/18 08:54 Phosphorus 2.6 mg/dL (2.5-4.5) 01/03/18 06:07 Magnesium 1.8 mg/dL (1.6-2.3) 01/03/18 06:07 Total Bilirubin 0.5 mg/dL (0.2-1.3) 12/30/17 04:38 AST 57 U/L (17-59) 12/30/17 04:38 ALT 69 U/L (21-72) 12/30/17 04:38 Alkaline Phosphatase 64 U/L (38-126) 12/30/17 04:38 Total Creatine Kinase 659 U/L (55-170) H 12/29/17 12:32 CK-MB (CK-2) 3.2 ng/mL (0.0-2.4) H 12/29/17 12:32 CK-MB (CK-2) Rel Index 0.5 12/29/17 12:32 Troponin I 0.017 ng/mL (0.000-0.034) 12/29/17 12:32 Total Protein 5.4 g/dL (6.3-8.2) L 12/30/17 04:38 Albumin 2.7 g/dL (3.5-5.0) L 12/30/17 04:38 Urine Color Yellow 12/29/17 12:32 Urine Appearance Clear (Clear) 12/29/17 12:32 Urine pH 5.5 (5.0-8.0) 12/29/17 12:32 Ur Specific [place] 1.010 (1.001-1.035) 12/29/17 12:32 Urine Protein Negative (Negative) 12/29/17 12:32 Urine Glucose (UA) Negative (Negative) 12/29/17 12:32 Urine Ketones Negative (Negative) 12/29/17 12:32 Urine Blood Small (Negative) H 12/29/17 12:32 Urine Nitrite Negative (Negative) 12/29/17 12:32 Urine Bilirubin Negative (Negative) 12/29/17 12:32 Urine Urobilinogen <2.0 mg/dL (<2.0) 12/29/17 12:32 Ur Leukocyte Esterase Negative (Negative) 12/29/17 12:32 Urine RBC 3 /hpf (0-5) 12/29/17 12:32 Urine WBC 1 /hpf (0-5) 12/29/17 12:32 Ur Squamous Epith Cells <1 /hpf (0-4) 12/29/17 12:32 Hyaline Casts 15 /lpf (0-2) H 12/29/17 12:32 Urine Mucus Rare /hpf (None) H 12/29/17 12:32 Vancomycin Trough 22.7 ug/mL 01/06/18 11:50 Microbiology 12/29/17 16:11 Blood Blood Culture - Final No Growth after 144 hours 12/29/17 22:52 Sputum Gram Stain - Final 12/29/17 22:52 Sputum Sputum Culture - Final Anika albicans Methicillin resist S. aureus 12/29/17 12:32 Urine,Catheterized Urine Culture - Final Assessment and Plan (1) Acute exacerbation of chronic obstructive airways disease Status: Acute Code(s): J44.1 - CHRONIC OBSTRUCTIVE PULMONARY DISEASE W (ACUTE ) EXACERBATION SNOMED Code(s): 544076023 (2) Coagulopathy Status: Acute Code(s): D68.9 - COAGULATION DEFECT, UNSPECIFIED SNOMED Code(s ): 56278986 (3) Weakness of both lower limbs Status: Acute Code(s): M62.81 - MUSCLE WEAKNESS (GENERALIZED) SNOMED Code(s) : 3668334 (4) MRSA pneumonia Narrative/Plan: 82-year-old male presents from outside facility was without evidence of increasing shortness of breath at the time the transfer there is evidence of hypotension requiring fluid resuscitation and norepinephrine for hypotension. He did have IV access placed. There was difficulties with Coumadin coagulopathy at admission which is starting to have improvement. He has multiple medical troubles include his obesity, pulmonary embolus in the past, chronic disease stage III, COPD chronic anemia and has diabetes mellitus type 2. He has had the aortic aneurysm with endovascular grafting also in the past. Presents now as noted with significant shortness of breath computed tomography scan showed evidence of a new pneumonia in sputum culture now has evidence of MRSA being isolated. Blood cultures are negative so far. At this time his creatinine has improved in vancomycin will be added for the treatment of his MRSA pneumonia. Continue with ongoing respiratory treatments as per the pulmonology. There has been some increase in leukocytosis however he has been placed on steroid therapy which is likely increasing this over the last 24 hours. It is improving clinically the patient is improved since admission and that he is no longer 100% on rebreather, and is no longer requiring any vasopressor type therapy. Chest x-rays without any acute change but does show the basilar pneumonia. INR is improved and is now at 2.6. The patient currently is on piperacillin tazobactam which will likely be rapidly de-escalate it if no further positive cultures become available with only the MRSA. 01/06/2018 patient has had a marked improvement of his status. He is been treated for MRSA pneumonia as well as volume overload. He is now stable and is being discharged back to the extended care facility. He will be treated for 7 further days with trimethoprim sulfamethoxazole. Needs to be watched closely for any Coumadin interactions. He has been treated for lice without difficulty. Status: Acute Code(s): J15.212 - PNEUMONIA DUE TO METHICILLIN RESISTANT STAPHYLOCOCCUS AUREUS SNOMED Code(s): 105129080153342
[2018-01-07] MEDS ORDERED: VANCOMYCIN 2,250 MG in SODIUM CHLORIDE 0.9% 500 ML IVPB SCH (06:00)
== END 2018-01-06 18:50 | DRG 871 ==
LOC: EC 12:15 → 6ICU 12:30 → 6SEL 12-30 23:08 → 5MS5E 01-05 01:19
PROVIDERS: ADMIT Family Medicine; ATTEND Family Medicine
PROC: 06HM33Z Insertion of Infusion Device into Right Femoral Vein, Percutaneous Approach (ICD-10-PCS; principal; 2017-12-29)
DX: A41.02 Sepsis due to Methicillin resistant Staphylococcus aureus (principal); J15.212 Pneumonia due to Methicillin resistant Staphylococcus aureus; J96.01 Acute respiratory failure with hypoxia; I50.33 Acute on chronic diastolic (congestive) heart failure; R65.21 Severe sepsis with septic shock; Z68.42 Body mass index [BMI] 45.0-49.9, adult; J98.11 Atelectasis; N17.9 Acute kidney failure, unspecified; I13.0 Hypertensive heart and chronic kidney disease with heart failure and stage 1 through stage 4 chronic kidney disease, or unspecified chronic kidney disease; I82.411 Acute embolism and thrombosis of right femoral vein; J47.0 Bronchiectasis with acute lower respiratory infection; L89.322 Pressure ulcer of left buttock, stage 2; L89.312 Pressure ulcer of right buttock, stage 2; I72.3 Aneurysm of iliac artery; E11.22 Type 2 diabetes mellitus with diabetic chronic kidney disease; E11.51 Type 2 diabetes mellitus with diabetic peripheral angiopathy without gangrene; E11.65 Type 2 diabetes mellitus with hyperglycemia; J43.9 Emphysema, unspecified; E66.01 Morbid (severe) obesity due to excess calories; B85.2 Pediculosis, unspecified; D63.8 Anemia in other chronic diseases classified elsewhere; T38.0X5A Adverse effect of glucocorticoids and synthetic analogues, initial encounter; N18.3 Chronic kidney disease, stage 3 (moderate); F32.9 Major depressive disorder, single episode, unspecified; R79.1 Abnormal coagulation profile; T45.515A Adverse effect of anticoagulants, initial encounter; D50.9 Iron deficiency anemia, unspecified; H91.90 Unspecified hearing loss, unspecified ear; E78.5 Hyperlipidemia, unspecified; N40.0 Benign prostatic hyperplasia without lower urinary tract symptoms; M10.9 Gout, unspecified; K59.09 Other constipation; K21.9 Gastro-esophageal reflux disease without esophagitis; M71.20 Synovial cyst of popliteal space [Baker], unspecified knee; I25.10 Atherosclerotic heart disease of native coronary artery without angina pectoris; H40.9 Unspecified glaucoma; Z71.3 Dietary counseling and surveillance; Z79.82 Long term (current) use of aspirin; Z79.01 Long term (current) use of anticoagulants; Z79.4 Long term (current) use of insulin; Z79.891 Long term (current) use of opiate analgesic; Z79.51 Long term (current) use of inhaled steroids; Z79.899 Other long term (current) drug therapy; Z86.718 Personal history of other venous thrombosis and embolism; Z74.01 Bed confinement status; Z86.711 Personal history of pulmonary embolism; Z98.49 Cataract extraction status, unspecified eye; Z90.49 Acquired absence of other specified parts of digestive tract; Z95.828 Presence of other vascular implants and grafts; Z87.891 Personal history of nicotine dependence; Z86.79 Personal history of other diseases of the circulatory system; Z80.41 Family history of malignant neoplasm of ovary; Z82.49 Family history of ischemic heart disease and other diseases of the circulatory system; Z83.1 Family history of other infectious and parasitic diseases
CPT/HCPCS: 71045; 71250; 80048; 80053; 80202; 81001; 82550; 82553; 83036; 83605; 83735; 84100; 84484; 85025; 85610; 85730; 87040; 87070; 87077; 87086; 87186; 87205; 93005; 94640; 94760; 96365; 96366; 96367; 96368; 96375; 96376; 99291

== ENCOUNTER 2018-03-27 17:43 | Inpatient (IN) | payer MEDICARE, BC ==
--- NOTE | 2018-03-27 17:52 | ED ---
SOB HPI - General Stated Complaint: Pneumonia, Sepsis Time Seen by Provider: 03/27/18 17:46 Source: RN notes reviewed, old records reviewed - History of Present Illness Initial Comments: This is an 83-year-old male to the ER for evaluation of shortness of breath. Patient has multiple medical conditions and medical comorbidities. Patient was having transfer for facility for evaluation pneumonia and sepsis. Patient is history of diabetes high blood pressure high cholesterol. MD Complaint: shortness of breath -: days(s) Severity: moderate Severity scale (1-10): 6 Quality: other (No pain) Consistency: constant Improves With: oxygen, rest Worsens With: exertion Known History Of: COPD, congestive heart failure Context: recent URI Associated Symptoms: fever, cough, sputum production, palpitations Treatments Prior to Arrival: none - Related Data Home Medications Medication Instructions Recorded Confirmed Ferrous Sulfate [Iron (65 MG 325 mg PO DAILY 05/29/16 03/27/18 Elemental)] Aspirin 81 mg PO DAILY 08/20/16 03/27/18 Atorvastatin [Lipitor] 20 mg PO HS 08/20/16 03/27/18 Budesonide [Pulmicort] 0.5 mg INHALATION RT-BID 08/20/16 03/27/18 Ipratropium-Albuterol Nebulize 3 ml INHALATION RT-TID 08/20/16 03/27/18 [Duoneb 0.5 mg-3 mg/3 ml Soln] Losartan [Cozaar] 50 mg PO DAILY 08/20/16 03/27/18 Tamsulosin HCl [Flomax] 0.4 mg PO DAILY 08/20/16 03/27/18 Acetaminophen Tab [Tylenol] 650 mg PO TID 12/29/17 03/27/18 Furosemide [Lasix] 40 mg PO DAILY 12/29/17 03/27/18 Hydrocortisone Pr Cream 1 applic RECTAL TID PRN 12/29/17 03/27/18 [Proctosol-Hc 2.5%] Magnesium Hydroxide [Milk of 2,400 mg PO DAILY PRN 12/29/17 03/27/18 Magnesia] Melatonin 5 mg PO HS 12/29/17 03/27/18 Montelukast [Singulair] 10 mg PO DAILY 12/29/17 03/27/18 Tears Naturale Free Solution 1 drop BOTH EYES BID 12/29/17 03/27/18 fentaNYL 100MCG/HR PATCH 1 patch TRANSDERM Q72H 12/29/17 03/27/18 [Duragesic 100MCG/HR] Alcohol Antiseptic Pads [Alcohol 1 pad TOPICAL BID@0700,199903/27/18 03/27/18 Swabs] Amino Acids/Protein Hydrolys 30 ml PO BID 03/27/18 03/27/18 [Pro-Stat Supplement] Bisacodyl 10 mg PO Q48H PRN 03/27/18 03/27/18 Mineral Oil [Fleet Mineral Oil] 113 ml RECTAL Q72H PRN 03/27/18 03/27/18 Previous Rx's Medication Instructions Recorded Insulin Aspart [NovoLOG 10 unit SQ AC-TID vial 01/06/18 (formulary)] Allergies Allergy/AdvReac Type Severity Reaction Status Date / Time No Known Allergies Allergy Verified 03/27/18 18:19 Review of Systems ROS Statement: Those systems with pertinent positive or pertinent negative responses have been documented in the HPI. ROS Other: All systems not noted in ROS Statement are negative. 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 Patient also is known to have abdominal aortic aneurysm-daughter not sure of size.. 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 to verify the bracketed information w/pt and daughter History of Any Multi-Drug Resistant Organisms: MRSA Date of last positivie culture/infection: 12/29/17 MDRO Source:: SPUTUM MRSA Past Surgical History: Appendectomy, Hernia Repair, Tonsillectomy Additional Past Surgical History / Comment(s): cataract, hydrocele, :9 stents in legs/ 2 aortic stents", rt ext iliac stent 05/29/16 at [facility] Past Anesthesia/Blood Transfusion Reactions: No Reported Reaction Past Psychological History: No Psychological Hx Reported Smoking Status: Former smoker Past Alcohol Use History: None Reported Past Drug Use History: None Reported - Past Family History Mother Family Medical History: Cancer Additional Family Medical History / Comment(s): open heart surgery, CA ovarian and liver, lyme disease General Exam General appearance: alert, anxious, in distress, obese Head exam: Present: atraumatic, normocephalic, normal inspection Eye exam: Present: normal appearance, PERRL, EOMI. Absent: scleral icterus, conjunctival injection, periorbital swelling ENT exam: Present: normal exam, mucous membranes dry Neck exam: Present: normal inspection. Absent: tenderness, meningismus, lymphadenopathy Respiratory exam: Present: wheezes, accessory muscle use, decreased breath sounds, prolonged expiratory. Absent: respiratory distress, rales, rhonchi, stridor Cardiovascular Exam: Present: regular rate, normal rhythm, normal heart sounds. Absent: systolic murmur, diastolic murmur, rubs, gallop, clicks GI/Abdominal exam: Present: soft, normal bowel sounds. Absent: distended, tenderness, guarding, rebound, rigid Extremities exam: Present: normal inspection, full ROM, normal capillary refill. Absent: tenderness, pedal edema, joint swelling, calf tenderness Back exam: Present: normal inspection Neurological exam: Present: alert, oriented X3, CN II-XII intact Psychiatric exam: Present: normal affect, normal mood Skin exam: Present: warm, dry, intact, normal color. Absent: rash Course Vital Signs 03/27/18 03/27/18 17:58 19:12 Temperature 99.3 F Pulse Rate 84 89 Respiratory 22 22 Rate Blood Pressure 118/44 O2 Sat by Pulse 94 L 89 L Oximetry - Reevaluation(s) Reevaluation #1: 03/27/18 18:40 Medical record is reviewed Reevaluation #2: 03/27/18 18:40 Transferring paperwork is currently reviewed Reevaluation #3: 03/27/18 18:40 On re-eval patient is awake alert in no respiratory distress. Reevaluation #4: 03/27/18 18:49 Patient given 2 half liter bolus secondary to ideal body weight Medical Decision Making - Medical Decision Making 80 female the ER for evaluation severe shortness of breath. Patient was transferred to our facility for evaluation of pneumonia and fever and sepsis. Patient is placed on broad-spectrum antibiotics, breathing treatments, will admit for continued care - EKG Data -: EKG Interpreted by Me (EKG shows sinus rhythm rate of 83, NH 214, QRS 70, QTc 540) - Radiology Data Radiology results: report reviewed (Chest x-rays positive for pneumonia) Critical Care Time Critical Care Time: Yes Total Critical Care Time: 31 Disposition Clinical Impression: Acute exacerbation of chronic obstructive airways disease, Fever, Hypoxia, Nosocomial pneumonia, Sepsis Disposition: ADMITTED IP TO THIS HOSP Condition: Serious Is patient prescribed a controlled substance at d/c from ED?: No
[2018-03-27] MEDS ORDERED: PIPERACILLIN-TAZOBACTAM 3.375 GM in SODIUM CHLORIDE 0.9% 100 ML IVPB STA (18:34)
[2018-03-27] MEDS ORDERED: LEVOFLOXACIN 750MG-D5W PMX 750 MG in DEXTROSE/WATER 1 150ML.BAG IVPB STA (18:34)
[2018-03-27] MEDS ORDERED: PNEUMONIA PROTOCOL UTILIZED 1 EACH MISC PO PRN (18:34)
[2018-03-27] MEDS ORDERED: SODIUM CHLORIDE 0.9% 500 ML 500 ML IV ONE (18:49)
[2018-03-27] MEDS ORDERED: SODIUM CHLORIDE 0.9% 2,000 ML IV ONE (18:49)
[2018-03-27] MEDS: IPRATROPIUM-ALBUTEROL 3 ML NEB INHALATION SCH ×2 (19:08→19:54)
[2018-03-27] MEDS: SODIUM CHLORIDE 0.9% 1,000 ML IV SCH (19:10)
[2018-03-27 23:11] LABS: Glucose,Whole Blood 292 mg/dL (75-99)
[2018-03-28] MEDS ORDERED: NALOXONE 0.4 MG/ML 1 ML VIAL IV PRN (01:21)
[2018-03-28] MEDS ORDERED: VANCOMYCIN IV PER PHARMACY 1 EACH MISC MISCELLANE PRN (01:38)
--- NOTE | 2018-03-28 01:52 | XR ---
EXAMINATION TYPE: XR chest 1V portable DATE OF EXAM: 03/28/2018 COMPARISON: 01/03/2018 HISTORY: Productive cough TECHNIQUE: Single frontal view of the chest is obtained. FINDINGS: Heart is enlarged. There is no gross heart failure. There are chest leads. Thoracic aorta is atheromatous. There is no definite pleural effusion. There is slight coarsening of the lung markin gs. IMPRESSION: Cardiomegaly and pulmonary fibrosis. No gross heart failure. No change.
[2018-03-28] MEDS ORDERED: VANCOMYCIN 2,500 MG in SODIUM CHLORIDE 0.9% 250 ML IVPB ONE (03:00)
[2018-03-28] MEDS ORDERED: VANCOMYCIN 2,500 MG in SODIUM CHLORIDE 0.9% 500 ML IVPB ONE (03:53)
[2018-03-28] MEDS: PIPERACILLIN-TAZOBACTAM 3.375 GM in SODIUM CHLORIDE 0.9% 100 ML IVPB SCH ×3 (04:05→20:51)
[2018-03-28 05:02] LABS: Anisocytosis Slight; Basophils % (A) 1 %; Eosinophils # (A) 0.1 k/uL (0-0.7); Eosinophils % (A) 2 %; HCT 31.4 % (39.0-53.0); Hypochromasia Moderate; Lymphocytes # (A) 0.2 k/uL (1.0-4.8); Lymphocytes % (A) 4 %; MCH 28.1 pg (25.0-35.0); MCHC 31.8 g/dL (31.0-37.0); MCV 88.3 fL (80.0-100.0); Mean Platelet Volume 7.3; Monocytes # (A) 0.2 k/uL (0-1.0); Monocytes % (A) 5 %; Neutrophils # (A) 4.3 k/uL (1.3-7.7); Neutrophils % (A) 87 %; Platelet Count 158 k/uL (150-450); Poikilocytosis Slight; RBC 3.56 m/uL (4.30-5.90); RDW 18.8 % (11.5-15.5); WBC 4.9 k/uL (3.8-10.6)
[2018-03-28 05:32] LABS: Calcium 7.9 mg/dL (8.4-10.2); Magnesium 1.5 mg/dL (1.6-2.3); Potassium 4.2 mmol/L (3.5-5.1)
[2018-03-28 05:51] LABS: Appearance,Urine Cloudy (Clear); Bacteria,Urine Rare /hpf; Bilirubin,Urine Negative (Negative); Blood,Urine Moderate (Negative); Color,Urine Yellow; Glucose,Urine (UA) Negative (Negative); Ketones,Urine Negative (Negative); Leukocyte Esterase,Urine Negative (Negative); Mucus,Urine Rare /hpf; Nitrite,Urine Negative (Negative); PH, Urine 5.5 (5.0-8.0); Protein,Urine 1+ (Negative); RBC,Urine 11 /hpf (0-5); Specific Gravity,Urine 1.017 (1.001-1.035); Squamous Epithelial Cell,Urine <1 /hpf (0-4); Urobilinogen,Urine <2.0 mg/dL (<2.0); WBC,Urine 1 /hpf (0-5)
[2018-03-28 06:57] LABS: Glucose,Whole Blood 249 mg/dL (75-99)
[2018-03-28] MEDS: BUDESONIDE 0.5 MG/2 ML NEBU INHALATION SCH ×2 (07:11→19:35)
[2018-03-28] MEDS: IPRATROPIUM-ALBUTEROL 3 ML NEB INHALATION SCH ×4 (07:11→19:35)
--- NOTE | 2018-03-28 07:32 | XR ---
EXAMINATION TYPE: XR chest 1V DATE OF EXAM: 03/28/2018 COMPARISON: 03/28/2018 and 1:17 AM HISTORY: Productive cough TECHNIQUE: Single frontal view of the chest is obtained. FINDINGS: There is a left lower lung reticular opacity not well appreciated on the prior exam given motion artifact. Remainder the lungs again demonstrate slightly coarsened interstitial lung markings. There is blunting of the bilateral costophrenic angles. Cardiomediastinal silhouette is prominent in the mid mediastinum and cardiac silhouette appears mildly enlarged. No pneumothorax is identified. M ild multilevel degenerative changes of thoracic spine are noted. IMPRESSION: 1. Prominent mediastinal size. CT could evaluate for aortic aneurysm. 2. Left basilar reticular opacity favored to represent pneumonia, not well appreciated on the prior d ue to motion.
--- NOTE | 2018-03-28 08:04 | HP ---
DOS: 03/27/18 HISTORY AND PHYSICAL CHIEF COMPLAINT: Shortness of breath. HISTORY OF PRESENT ILLNESS: This is an 83-year-old gentleman with a past medical history of multiple medical problems including history of COPD, diabetes, DVT, history of hypertension, hyperlipidemia, history of pulmonary embolism being followed by Dr. Piper in the outpatient setting, recently admitted with bilateral pneumonia and multiple medical issues. Currently, the patient is referred from [facility] with features of possible pneumonia and sepsis and severe hypotension. The patient was given IV fluids. In total, the patient received about 3.5 L, 1.5 L from [facility] and 2 L from here and the patient admitted to ICU for further evaluation and treatment. Patient started on broad-spectrum IV antibiotics. There is no history of headache, loss of consciousness, seizures at this time. PAST MEDICAL HISTORY: History of COPD, diabetes, DVT, hearing disorder, hypertension, hyperlipidemia, pulmonary embolism. MEDICATIONS: Prior to admission include home medications: 1. Flomax 0.4 daily. 2. Singular 10 mg p.o. daily. 4. Melatonin 5 mg q.h.s. 5. Milk of magnesia 2.5 g daily. 6. Cozaar 50 mg daily. 7. DuoNeb q.i.d. and p.r.n. 8. Formulary insulin 10 units a.c. t.i.d. 9. Hydrocortisone 1 application t.i.d. p.r.n. 10.Lasix 40 mg daily. 11.Iron 325 mg p.o. daily. 12.Pulmicort 0.5 b.i.d. 13.Bisacodyl 10 mg q.48 p.r.n. 14.Lipitor 20 mg q.h.s. 15.Aspirin 81 mg. 16.ProStat 30 mL p.o. b.i.d. 17.Alcohol 1 application b.i.d. 18.Tears 1 drop p.o. b.i.d. 19.Tylenol 650 p.o. t.i.d. 20.Fentanyl patch Duragesic q.72 hours. ALLERGIES: None. FAMILY HISTORY: History of colon surgery, CABG, CA of the ovary, liver, Lyme disease. SOCIAL HISTORY: Previous history of smoking. No history of alcohol intake. REVIEW OF SYSTEMS: ENT: Diminished hearing, diminished vision. CARDIOVASCULAR: S1, S2. RESPIRATORY: As mentioned earlier. GI: No nausea. : No dysuria. NERVOUS SYSTEM: No numbness or weakness. ALLERGY/IMMUNOLOGY: No asthma or hayfever. MUSCULOSKELETAL: As mentioned earlier. HEMATOLOGY/ONCOLOGY: No history of anemia. ENDOCRINE: As mentioned earlier. CONSTITUTIONAL: As mentioned earlier. DERMATOLOGY: Negative. RHEUMATOLOGY: Negative. PSYCHIATRY: As mentioned earlier. PHYSICAL EXAMINATION: Alert and oriented x2. Pulse 79, blood pressure 118/42, respiratory rate 20, temperature 98.2, pulse ox 98% on 4 L. HEENT: Conjunctivae normal. Oral mucosa moist. Neck is no jugular venous distention. No lymph node enlargement. CARDIOVASCULAR SYSTEM: S1, S2, muffled. RESPIRATORY SYSTEM: Breath sounds diminished at the bases, a few scattered rhonchi, no crackles. ABDOMEN: Soft, obese, nontender. LEGS: No edema, no swelling. NERVOUS SYSTEM: Higher functions as mentioned earlier. Moves all 4 limbs. No focal deficits. LYMPHATICS: No lymph node enlargement in neck or axillae. SKIN: No ulcer, rash or bleeding. LABS: Portable chest x-ray which was reviewed personally by me showed possible increased bronchovascular markings and possible bibasilar pneumonia and other labs are pending at this time. ASSESSMENT: 1. Possible bibasilar pneumonia and sepsis. 2. Rule out congestive heart failure. 3. History of chronic obstructive pulmonary disease. 4. Diabetes mellitus type 2. 5. History of deep vein thrombosis. 6. Hypertension. 7. Hyperlipidemia. 8. History of pulmonary embolus. 9. History of previous deep venous thrombosis, pulmonary embolism. 10.History of recent bilateral pneumonia. 11.History of iron-deficiency anemia. 12.History of coronary artery disease. 13.History of gout. 14.Chronic constipation. 15.Chronic kidney disease stage III. 16.History of generalized edema. 17.History of hyperlipidemia. 18.History of depression. 19.History of glaucoma. 20.History of degenerative joint disease. 21.History of popliteal cyst. 22.Morbid obesity with body mass index of 50.2. 23.History of methicillin-resistant Staphylococcus aureus in the sputum. RECOMMENDATION: In this 83-year-old gentleman who presented with multiple complex medical issues , will monitor the patient closely, continue with the current management and symptomatic treatment. Recommend empiric antibiotics with IV Zosyn and vanco. Otherwise, I would also recommend Infectious Disease evaluation and consult Dr. Sanchez for ICU management. Also patient monitored in ICU. Medication reconciliation will be done. Prognosis guarded because of multiple complex medical issues. Will cautiously give IV fluids and continue to monitor. Patient had 2D echo was last done in 2013, I would also recommend a repeat 2D echo to assess the LV function. Ejection fraction 50% to 55% at that time. Once again, the prognosis is guarded and the patient has been made NO CODE, NO CPR, NO VENT. Further recommendations to follow. MMODL / IJN: [id number] / MTDD
[2018-03-28] MEDS ORDERED: NON-FORMULARY DRUG (Amino Acids/Protein Hydrolys [Pro-Stat Supplement] 30 ML) PO SCH (09:00)
[2018-03-28] MEDS ORDERED: ENOXAPARIN 40 MG/0.4 ML SYRINGE SQ SCH (09:00)
[2018-03-28] MEDS ORDERED: MINERAL OIL 133 ML ENEMA RECTAL PRN (09:00)
[2018-03-28] MEDS ORDERED: MAGNESIUM HYDROXIDE 2,400 MG/10 ML CUP PO PRN (09:00)
[2018-03-28] MEDS ORDERED: HYDROCORTISONE 2.5% RECTAL CREAM 30 GM TUBE RECTAL PRN (09:00)
[2018-03-28] MEDS ORDERED: FUROSEMIDE 40 MG TAB PO SCH (09:00)
[2018-03-28] MEDS ORDERED: BISACODYL 5 MG TABLET.DR PO PRN (09:00)
[2018-03-28 09:21] LABS: ABG Base Excess 2.3 mmol/L; ABG HCO3 28 mmol/L (21-25); ABG Oxygen Saturation 90.5 % (94-97); ABG PCO2 48 mmHg (35-45); ABG PH 7.37 (7.35-7.45); ABG TCO2 29 mmol/L (19-24)
[2018-03-28] MEDS: PANTOPRAZOLE 40 MG/10 ML VIAL IV SCH (10:16)
[2018-03-28] MEDS: ACETAMINOPHEN TAB 325 MG TAB PO SCH ×3 (10:16→20:51)
[2018-03-28] MEDS: FERROUS SULFATE 325 MG TAB PO SCH (10:17)
[2018-03-28] MEDS: FUROSEMIDE 40 MG TAB PO SCH ×2 (10:17→16:07)
[2018-03-28] MEDS: HEPARIN SODIUM,PORCINE 5,000 UNIT/ML 1 ML VIAL SQ SCH ×2 (10:17→16:06)
[2018-03-28] MEDS: TAMSULOSIN 0.4 MG CAP.ER.24H PO SCH (10:17)
[2018-03-28] MEDS: INSULIN ASPART 100 UNIT/ML 1 ML 10 ML VIAL SQ SCH ×3 (10:17→19:12)
[2018-03-28] MEDS: ASPIRIN 81 MG PO SCH (10:17)
[2018-03-28] MEDS: MONTELUKAST 10 MG TAB PO SCH (10:17)
[2018-03-28] MEDS: ARTIFICIAL TEARS-HYPROMELLOSE DROPS 15 ML BTL BOTH EYES SCH (10:18)
[2018-03-28] MEDS: SODIUM CHLORIDE 0.9% 1,000 ML IV SCH ×2 (10:19→16:06)
--- NOTE | 2018-03-28 11:21 | P.CNPUL ---
History of Present Illness Consult date: 03/28/18 Reason for consult: pneumonia, other (Possible sepsis) Chief complaint: Shortness of breath History of present illness: This is an 83-year-old white male with history of multiple medical problems including severe COPD, type 2 diabetes, severe hearing disorder, hypertension, previous history of deep vein thromboses and pulmonary embolism. Patient was seen yesterday at [facility] complaining of shortness of breath, cough, wheezing, and apparently upon arrival to the hospital he was noted to be hypotensive. Patient was given IV fluids boluses, about 4 L. Started on broad- spectrum antibiotics for presumptive pneumonia, transferred to [facility], seen in the ER, chest x-ray showed left basilar reticular opacity highly suspicious of pneumonia. Patient was admitted, placed on broad- spectrum antibiotics, did not require any pressors, and this consult was initiated. CBC showed WBC count of 4.90 glucose was 10.0. His ABG showed a pO2 of 59 pCO2 of 48 and pH of 7.37 and this was on 32% FiO2. Basic metabolic profile was normal, bicarb was normal. BUN was 52 creatinine 1.19. Blood sugar was elevated at 249. Lactic acid was 1.8. ProBNP level was borderline elevated. Magnesium level was 1.5. Patient is feeling better since he was admitted to the ICU, he is hemodynamically stable, he is presently afebrile, denies any headache, no blurred vision no dizziness, he has some cough and shortness of breath. Denied any chest pain no nausea no vomiting no abdominal pain no melena no hematemesis no dysuria and no frequency no urgency. Patient was started by the admitting physician on bronchodilators, he is also on antibiotics in the form of Zosyn, vancomycin, and Levaquin. Cultures are pending. And that his urine cultures. Cultures and blood cultures. Review of Systems 14 point review of systems were obtained, please refer to pertinent positives in HPI, otherwise remaining systems are negative. Patient is very hard of hearing. 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 Patient also is known to have abdominal aortic aneurysm-daughter not sure of size.. 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 was unable to verify the bracketed information w/pt and daughter History of Any Multi-Drug Resistant Organisms: MRSA Date of last positivie culture/infection: 12/29/17 MDRO Source:: SPUTUM MRSA Past Surgical History: Appendectomy, Hernia Repair, Tonsillectomy Additional Past Surgical History / Comment(s): cataract, hydrocele, :9 stents in legs/ 2 aortic stents", rt ext iliac stent 05/29/16 at [place] Past Anesthesia/Blood Transfusion Reactions: No Reported Reaction Past Psychological History: No Psychological Hx Reported Smoking Status: Former smoker Past Alcohol Use History: None Reported Past Drug Use History: None Reported - Past Family History Mother Family Medical History: Cancer Additional Family Medical History / Comment(s): open heart surgery, CA ovarian and liver, lyme disease Medications and Allergies Home Medications Medication Instructions Recorded Confirmed Type Ferrous Sulfate [Iron (65 MG 325 mg PO DAILY 05/29/16 03/27/18 History Elemental)] Aspirin 81 mg PO DAILY 08/20/16 03/27/18 History Atorvastatin [Lipitor] 20 mg PO HS 08/20/16 03/27/18 History Budesonide [Pulmicort] 0.5 mg INHALATION RT-BID 08/20/16 03/27/18 History Ipratropium-Albuterol Nebulize 3 ml INHALATION RT-TID 08/20/16 03/27/18 History [Duoneb 0.5 mg-3 mg/3 ml Soln] Losartan [Cozaar] 50 mg PO DAILY 08/20/16 03/27/18 History Tamsulosin HCl [Flomax] 0.4 mg PO DAILY 08/20/16 03/27/18 History Acetaminophen Tab [Tylenol] 650 mg PO TID 12/29/17 03/27/18 History Furosemide [Lasix] 40 mg PO DAILY 12/29/17 03/27/18 History Hydrocortisone Pr Cream 1 applic RECTAL TID PRN 12/29/17 03/27/18 History [Proctosol-Hc 2.5%] Magnesium Hydroxide [Milk of 2,400 mg PO DAILY PRN 12/29/17 03/27/18 History Magnesia] Melatonin 5 mg PO HS 12/29/17 03/27/18 History Montelukast [Singulair] 10 mg PO DAILY 12/29/17 03/27/18 History Tears Naturale Free Solution 1 drop BOTH EYES BID 12/29/17 03/27/18 History fentaNYL 100MCG/HR PATCH 1 patch TRANSDERM Q72H 12/29/17 03/27/18 History [Duragesic 100MCG/HR] Insulin Aspart [NovoLOG 10 unit SQ AC-TID vial 01/06/18 03/27/18 Rx (formulary)] Alcohol Antiseptic Pads [Alcohol 1 pad TOPICAL BID@0700,2000 03/27/18 03/27/18 History Swabs] Amino Acids/Protein Hydrolys 30 ml PO BID 03/27/18 03/27/18 History [Pro-Stat Supplement] Bisacodyl 10 mg PO Q48H PRN 03/27/18 03/27/18 History Mineral Oil [Fleet Mineral Oil] 113 ml RECTAL Q72H PRN 03/27/18 03/27/18 History Allergies Allergy/AdvReac Type Severity Reaction Status Date / Time No Known Allergies Allergy Verified 03/27/18 18:19 Physical Exam Vitals: Vital Signs Temp Pulse Pulse Resp BP BP Pulse Ox 03/28/18 07:30 77 03/28/18 07:12 75 03/28/18 07:00 74 20 117/57 93 L 03/28/18 06:50 75 22 117/57 91 L 03/28/18 06:40 75 22 117/57 92 L 03/28/18 06:30 75 20 113/50 93 L 03/28/18 06:20 76 21 113/50 90 L 03/28/18 06:10 75 22 113/50 92 L 03/28/18 06:00 76 24 115/55 91 L 03/28/18 05:50 78 23 115/55 90 L 03/28/18 05:40 78 19 115/55 92 L 03/28/18 05:30 78 21 108/45 91 L 03/28/18 05:20 76 25 H 108/45 91 L 03/28/18 05:10 77 23 108/45 92 L 03/28/18 05:00 78 19 110/50 90 L 03/28/18 04:50 79 17 110/50 92 L 03/28/18 04:40 77 20 110/50 91 L 03/28/18 04:30 78 23 118/49 91 L 03/28/18 04:20 77 20 118/49 90 L 03/28/18 04:10 80 18 118/49 90 L 03/28/18 04:00 99.9 F H 77 18 117/48 90 L 03/28/18 03:50 78 21 117/48 91 L 03/28/18 03:40 82 19 117/48 90 L 03/28/18 03:30 80 16 113/64 91 L 03/28/18 03:20 82 15 113/64 91 L 03/28/18 03:10 81 21 113/64 91 L 03/28/18 03:00 82 19 104/82 90 L 03/28/18 02:50 82 21 104/82 90 L 03/28/18 02:40 80 17 104/82 91 L 03/28/18 02:30 84 36 H 93/54 89 L 03/28/18 02:20 82 22 93/54 90 L 03/28/18 02:10 84 19 93/54 88 L 03/28/18 02:00 84 19 86/53 89 L 03/28/18 01:50 80 20 86/53 86 L 03/28/18 01:30 83 16 163/67 90 L 03/28/18 01:00 85 10 L 105/40 88 L 03/28/18 00:30 79 17 94/47 83 L 03/28/18 00:00 78 14 118/42 92 L 03/27/18 23:30 98.2 F 80 16 104/45 91 L 03/27/18 23:20 98.2 F 82 79 15 104/45 118/42 89 L 03/27/18 22:00 97.9 F 85 20 109/46 95 03/27/18 21:00 99.0 F 86 22 107/46 94 L 03/27/18 20:45 20 111/51 93 L 03/27/18 20:06 82 03/27/18 20:00 84 22 112/82 93 L 03/27/18 19:58 82 03/27/18 19:12 89 22 118/44 89 L 03/27/18 18:34 22 03/27/18 17:58 99.3 F 84 22 94 L Intake and Output 03/27/18 03/28/18 03/28/18 22:59 06:59 14:59 Intake Total 3600 Output Total 505 Balance 3095 Intake: IV 1100 Piperacillin-Tazobactam 3 100 .375 gm In Sodium Chloride 0.9% 100 ml @ 25 mls/hr IVPB ONCE STA Rx# :[id number] Sodium Chloride 0.9% 1, 500 000 ml @ 100 mls/hr IV . Q10H [facility] Rx#:[id number] Vancomycin 2,500 mg In 500 Sodium Chloride 0.9% 500 ml @ 125 mls/hr IVPB ONCE ONE Rx#:[id number] Amount of Fluid Infused ( 2500 ml) Output: Urine 505 Other: Voiding Method Indwelling Catheter Weight 176.447 kg 182.3 kg Physical Exam: Revealed an 83-year-old white male in no distress. On few liters nasal cannula. Head: Atraumatic, normocephalic, hearing aids are in place. HEENT:[Neck is supple.] [No neck masses.] [No thyromegaly.] [No JVD.] Chest: [Diminished breath sounds at the bases, rhonchi and wheezes noted bilaterally. More so on forced expiratory maneuver. No chest wall tenderness.. ] Cardiac Exam: [Normal S1 and S2, no S3 gallop, no murmur.] Abdomen: [Obese, Soft, nontender, no megaly, no rebound, no guarding, normal bowel sounds.] Extremities: [No clubbing, no edema, no cyanosis.] Neurological Exam: [No focal neurologic deficit.] Psychiatric: Normal mood, affect and mental status examination. Lymphatics: No evidence of lymphadenopathy. Skin: No rashes. Results - Laboratory Findings CBC and BMP: 03/28/18 04:10 03/28/18 04:10 ABG ABG pH 7.37 (7.35-7.45) 03/28/18 09:18 ABG pCO2 48 mmHg (35-45) H 03/28/18 09:18 ABG pO2 59 mmHg (83-108) L* 03/28/18 09:18 ABG O2 Saturation 90.5 % (94-97) L 03/28/18 09:18 Abnormal lab findings: Abnormal Labs 03/27/18 03/28/18 03/28/18 23:09 04:10 04:10 RBC 3.56 L Hgb 10.0 L Hct 31.4 L RDW 18.8 H Lymphocytes # 0.2 L ABG pCO2 ABG pO2 ABG HCO3 ABG Total CO2 ABG O2 Saturation Sodium 136 L BUN 52 H Glucose 244 H POC Glucose (mg/dL) 292 H Calcium 7.9 L Magnesium 1.5 L Urine Protein Urine Blood Urine RBC Urine Bacteria Urine Mucus 03/28/18 03/28/18 03/28/18 05:00 06:56 09:18 RBC Hgb Hct RDW Lymphocytes # ABG pCO2 48 H ABG pO2 59 L* ABG HCO3 28 H ABG Total CO2 29 H ABG O2 Saturation 90.5 L Sodium BUN Glucose POC Glucose (mg/dL) 249 H Calcium Magnesium Urine Protein 1+ H Urine Blood Moderate H Urine RBC 11 H Urine Bacteria Rare H Urine Mucus Rare H - Diagnostic Findings Chest x-ray: image reviewed (Cardiomegaly, slight coarsening of lung markings bilaterally especially at the left base.) Assessment and Plan Assessment: Impression: 1 acute community-acquired left lower lobe pneumonia 2 suspect sepsis based on the fact that the patient was hypotensive on presentation, responded mostly to fluid boluses. 3 acute exacerbation of COPD 4 type 2 diabetes 5 benign essential hypertension 6 chronic kidney disease stage III 7 history of recent bilateral pneumonia 8 mixed hyperlipidemia 9 previous history of deep vein thromboses and pulmonary embolism 10 history of gout 11 underlying coronary artery disease Recommendation: Fully agree with the present treatment plan, patient is now on proper antibiotics, and that is Levaquin, Zosyn and vancomycin. Cultures are pending. Continue bronchodilators, presently on DuoNeb, he is also on Pulmicort updrafts. Continue DVT prophylaxis. Agree with diuretics, since the chest x-ray is showing slight prominence of the pulmonary vasculature. His proBNP level is not significantly elevated. Continue insulin, continue iron for history of underlying iron deficiency anemia, continue home meds, patient will be monitored for the next 24 hours in the ICU, and if he remains hemodynamically stable, may consider transferring him out to a monitor bed on selective. We'll continue to follow. Time with Patient: Greater than 30
[2018-03-28 11:47] LABS: Glucose,Whole Blood 231 mg/dL (75-99)
[2018-03-28 13:13] LABS: Hemoglobin A1C 9.8 % (4.0-6.0)
--- NOTE | 2018-03-28 15:52 | ECHOF ---
Referral Reason:chf MEASUREMENTS -------- HEIGHT: 190.5 cm WEIGHT: 181.9 kg BP: 117/57 IVSd: 1.3 cm (0.6 - 1.1) LVIDd: 4.7 cm (3.9 - 5.3) LVPWd: 1.3 cm (0.6 - 1.1) IVSs: 2.0 cm LVIDs: 2.5 cm LVPWs: 1.8 cm LA Diam: 3.9 cm (2.7 - 3.8) RVIDd: 4.2 cm (< 3.3) LAESV Index (A-L): 23.55 ml/m Ao Diam: 4.1 cm (2.0 - 3.7) AV Cusp: 2.0 cm (1.5 - 2.6) EPSS: 1.2 cm MV E Jose: 0.92 m/s MV DecT: 260 ms MV A Jose: 0.81 m/s MV E/A Ratio: 1.14 AV maxP.53 mmHg AV meanP.38 mmHg RAP: 5.00 mmHg RVSP: 48.11 mmHg MV EF SLOPE: 23.08 mm/s (70 - 150) MV EXCURSION: 9.37 mm (> 18.000) FINDINGS -------- Sinus rhythm. This was a technically adequate study. The left ventricular size is normal. There is mild concentric left ventricular hypertrophy. Overa ll left ventricular systolic function is normal with, an EF between 60 - 65 %. The right ventricle is severely enlarged. The left atrium is normal in size. The right atrium is normal in size. There is mild aortic valve sclerosis. There is mild aortic stenosis present. Peak/mean gradient a cross the Aortic Valve is 22.53mmHg / 9.38mmHg. Mild mitral annular calcification present. Mild tricuspid regurgitation present. There is moderate pulmonary hypertension. The right ventric ular systolic pressure, as measured by Doppler, is 48.11mmHg. The pulmonic valve was not well visualized. The aortic root is dilated measuring 4.1cm. Normal inferior vena cava with normal inspiratory collapse consistent with estimated right atrial pre ssure of 5 mmHg. The inferior vena cava is mildly dilated. There is no pericardial effusion. CONCLUSIONS -------- 1. Sinus rhythm. 2. This was a technically adequate study. 3. The left ventricular size is normal. 4. There is mild concentric left ventricular hypertrophy. 5. Overall left ventricular systolic function is normal with, an EF between 60 - 65 %. 6. The right ventricle is severely enlarged. 7. The left atrium is normal in size. 8. The right atrium is normal in size. 9. There is mild aortic valve sclerosis. 10. There is mild aortic stenosis present. 11. Peak/mean gradient across the Aortic Valve is 22.53mmHg / 9.38mmHg. 12. Mild mitral annular calcification present. 13. Mild tricuspid regurgitation present. 14. There is moderate pulmonary hypertension. 15. The right ventricular systolic pressure, as measured by Doppler, is 48.11mmHg. 16. The pulmonic valve was not well visualized. 17. The aortic root is dilated measuring 4.1cm. 18. Normal inferior vena cava with normal inspiratory collapse consistent with estimated right atrial pressure of 5 mmHg. 19. The inferior vena cava is mildly dilated. 20. There is no pericardial effusion. CUSTOMER SERVICE CLERK: Farzaneh Oliveira RDCS
[2018-03-28] MEDS: VANCOMYCIN 2,250 MG in SODIUM CHLORIDE 0.9% 500 ML 500 ML IVPB SCH (16:06)
--- NOTE | 2018-03-28 17:32 | P.CONS ---
History of Present Illness - Reason for Consult Consult date: 03/28/18 - Chief Complaint Increasing shortness of breath - History of Present Illness 83-year-old male well-known to the infectious disease service was recently hospitalized in December at which point in time had evidence of MRSA pneumonia. He has been care for an extended care facility. Apparently he had increasing shortness of breath and relative hypoxia was transferred to our facility for further intervention. With evidence of respiratory failure he was brought intensive care unit and is being treated with BiPAP. With this he is doing relatively well and has no significant hypotension and has not had worsening respiratory failure. He is arousable and somewhat comfortable and is very hard of hearing. Nursing staff concerned because of multiple pressure ulcerations. Review of Systems ROS unobtainable: due to mental status Past Medical History Past Medical History: COPD, Diabetes Mellitus, Deep Vein Thrombosis (DVT), Hearing Disorder / Deafness, Hyperlipidemia, Hypertension, Pulmonary Embolus (PE ) Additional Past Medical History / Comment(s): Previous history of DVT/PE and patient has a maintained on long-term and to coagulation with warfarin, BPH, COPD, GE reflux, hypertension, iron deficiency anemia, muscle weakness generalized, coronary artery disease, gout, chronic constipation, impaired hearing, coronary artery disease, chronic kidney failure stage III disease, generalized edema, difficulty in walking, hyperlipidemia, depression, seasonal ALLERGIC rhinitis, diabetes mellitus type 2, glaucoma, osteoarthritis. Patient also is known to have abdominal aortic aneurysm-daughter not sure of size.. 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 with a wart to biiliac endovascular stent graft and then aneurysm measuring 10 x 9 cm in size and right iliac endovascular stent and the right common iliac artery aneurysm in addition to a left common iliac artery aneurysm measuring 3.1 cm and 3.0 cm respectively}information in brackets was charted previous admit.At time of this admission on 12-29-17 jingle writer was unable to verify the bracketed information w/pt and daughter History of Any Multi-Drug Resistant Organisms: MRSA Year Discovered:: 12/29/17 MDRO Source:: SPUTUM MRSA Past Surgical History: Appendectomy, Hernia Repair, Tonsillectomy Additional Past Surgical History / Comment(s): cataract, hydrocele, :9 stents in legs/ 2 aortic stents", rt ext iliac stent 05/29/16 at [place] Past Anesthesia/Blood Transfusion Reactions: No Reported Reaction Past Psychological History: No Psychological Hx Reported Smoking Status: Former smoker Past Alcohol Use History: None Reported Past Drug Use History: None Reported - Past Family History Mother Family Medical History: Cancer Additional Family Medical History / Comment(s): open heart surgery, CA ovarian and liver, lyme disease Medications and Allergies Home Medications and Allergies Comment(s): Current Medications Acetaminophen (Tylenol Tab) 650 mg PO TID [facility], [facility] Last Admin: 03/28/18 16:07 Dose: 650 mg Albuterol/Ipratropium (Duoneb 0.5 Mg-3 Mg/3 Ml Soln) 3 ml INHALATION RT-QID [facility], [facility]–1983 Last Admin: 03/28/18 15:33 Dose: 3 ml Artificial Tears (Artificial Tear Drops) 1 drops BOTH EYES BID FOR[facility], [facility] Last Admin: 03/28/18 10:18 Dose: Not Given Aspirin (Aspirin) 81 mg PO DAILY [facility], [facility] Last Admin: 03/28/18 10:17 Dose: 81 mg Atorvastatin Calcium (Lipitor) 20 mg PO HS [facility], [facility] Bisacodyl (Dulcolax) 10 mg PO Q48H PRN PRN Reason: Constipation Budesonide (Pulmicort) 0.5 mg INHALATION RT-BID [facility], [facility] Last Admin: 03/28/18 07:11 Dose: 0.5 mg Ferrous Sulfate (Feosol) 325 mg PO DAILY [facility], [facility] Last Admin: 03/28/18 10:17 Dose: 325 mg Furosemide (Lasix) 40 mg PO BID@0900,1600 [facility], [facility] Last Admin: 03/28/18 16:07 Dose: 40 mg Heparin Sodium (Porcine) (Heparin) 5,000 unit SQ Q8HR [facility], [facility] Last Admin: 03/28/18 16:06 Dose: 5,000 unit Hydrocortisone (Proctosol-Hc 2.5%) 1 applic RECTAL TID PRN PRN Reason: INFLAMED HERORRHOIDS Piperacillin Sod/Tazobactam (Sod 3.375 gm/ Sodium Chloride) 100 mls @ 25 mls/ hr IVPB Q8H [facility], [facility] Last Admin: 03/28/18 12:30 Dose: 25 mls/hr Sodium Chloride (Saline 0.9%) 1,000 mls @ 100 mls/hr IV .Q10H [facility], [facility] Last Admin: 03/28/18 16:06 Dose: 100 mls/hr Vancomycin HCl 2,250 mg/ (Sodium Chloride) 500 mls @ 167 mls/hr IVPB Q16H [facility], [facility] Last Admin: 03/28/18 16:06 Dose: 167 mls/hr Levofloxacin 500 mg/ IV (Solution) 100 mls @ 100 mls/hr IVPB Q24H [facility], [facility] Insulin Aspart (Novolog) 10 unit SQ AC-TID [facility] Last Admin: 03/28/18 13:06 Dose: 10 unit Magnesium Hydroxide (Milk Of Magnesia) 2,400 mg PO DAILY PRN PRN Reason: Constipation Melatonin (Melatonin) 5 mg PO [facility] Mineral Oil (Fleet Mineral Oil) 113 ml RECTAL Q72H PRN PRN Reason: Constipation Miscellaneous Information (Pneumonia Protocol Utilized) 1 each PO ONCE PRN PRN Reason: Per Protocol Montelukast Sodium (Singulair) 10 mg PO DAILY [facility] Last Admin: 03/28/18 10:17 Dose: 10 mg Naloxone HCl (Narcan) 0.2 mg IV Q2M PRN PRN Reason: Opioid Reversal Pantoprazole Sodium (Protonix) 40 mg IV DAILY [facility] Last Admin: 03/28/18 10:16 Dose: 40 mg Tamsulosin HCl (Flomax) 0.4 mg PO DAILY [facility] Last Admin: 03/28/18 10:17 Dose: 0.4 mg Home Medications Medication Instructions Recorded Confirmed Type Ferrous Sulfate [Iron (65 MG 325 mg PO DAILY 05/29/16 03/27/18 History Elemental)] Aspirin 81 mg PO DAILY 08/20/16 03/27/18 History Atorvastatin [Lipitor] 20 mg PO HS 08/20/16 03/27/18 History Budesonide [Pulmicort] 0.5 mg INHALATION RT-BID 08/20/16 03/27/18 History Ipratropium-Albuterol Nebulize 3 ml INHALATION RT-TID 08/20/16 03/27/18 History [Duoneb 0.5 mg-3 mg/3 ml Soln] Losartan [Cozaar] 50 mg PO DAILY 08/20/16 03/27/18 History Tamsulosin HCl [Flomax] 0.4 mg PO DAILY 08/20/16 03/27/18 History Acetaminophen Tab [Tylenol] 650 mg PO TID 12/29/17 03/27/18 History Furosemide [Lasix] 40 mg PO DAILY 12/29/17 03/27/18 History Hydrocortisone Pr Cream 1 applic RECTAL TID PRN 12/29/17 03/27/18 History [Proctosol-Hc 2.5%] Magnesium Hydroxide [Milk of 2,400 mg PO DAILY PRN 12/29/17 03/27/18 History Magnesia] Melatonin 5 mg PO HS 12/29/17 03/27/18 History Montelukast [Singulair] 10 mg PO DAILY 12/29/17 03/27/18 History Tears Naturale Free Solution 1 drop BOTH EYES BID 12/29/17 03/27/18 History fentaNYL 100MCG/HR PATCH 1 patch TRANSDERM Q72H 12/29/17 03/27/18 History [Duragesic 100MCG/HR] Insulin Aspart [NovoLOG 10 unit SQ AC-TID vial 01/06/18 03/27/18 Rx (formulary)] Alcohol Antiseptic Pads [Alcohol 1 pad TOPICAL BID@0700,199903/27/18 03/27/18 History Swabs] Amino Acids/Protein Hydrolys 30 ml PO BID 03/27/18 03/27/18 History [Pro-Stat Supplement] Bisacodyl 10 mg PO Q48H PRN 03/27/18 03/27/18 History Mineral Oil [Fleet Mineral Oil] 113 ml RECTAL Q72H PRN 03/27/18 03/27/18 History Allergies Allergy/AdvReac Type Severity Reaction Status Date / Time No Known Allergies Allergy Verified 03/27/18 18:19 Physical Exam Vitals: Vital Signs Temp Pulse Pulse Resp BP BP Pulse Ox 03/28/18 17:11 94 L 03/28/18 16:00 97 F L 57 L 79 15 113/50 96 03/28/18 15:47 57 L 03/28/18 15:35 57 L 03/28/18 15:00 57 L 17 110/55 100 03/28/18 14:30 59 L 20 103/43 94 L 03/28/18 14:00 60 17 102/46 95 03/28/18 13:30 60 16 105/44 95 03/28/18 13:00 62 15 107/48 91 L 03/28/18 12:30 63 16 111/52 91 L 03/28/18 12:00 97 F L 79 16 115/48 03/28/18 11:35 67 03/28/18 11:30 65 16 121/53 03/28/18 11:15 64 03/28/18 11:00 64 15 109/53 95 03/28/18 10:30 68 12 126/54 94 L 03/28/18 10:00 67 18 125/55 94 L 03/28/18 09:30 66 16 124/54 95 03/28/18 09:00 71 19 120/56 93 L 03/28/18 08:30 76 20 107/67 92 L 03/28/18 08:00 97 F L 74 79 20 112/48 90 L 03/28/18 07:30 74 19 118/65 92 L 03/28/18 07:12 75 03/28/18 07:00 74 20 117/57 93 L 03/28/18 06:50 75 22 117/57 91 L 03/28/18 06:40 75 22 117/57 92 L 03/28/18 06:30 75 20 113/50 93 L 03/28/18 06:20 76 21 113/50 90 L 03/28/18 06:10 75 22 113/50 92 L 03/28/18 06:00 76 24 115/55 91 L 03/28/18 05:50 78 23 115/55 90 L 03/28/18 05:40 78 19 115/55 92 L 03/28/18 05:30 78 21 108/45 91 L 03/28/18 05:20 76 25 H 108/45 91 L 03/28/18 05:10 77 23 108/45 92 L 03/28/18 05:00 78 19 110/50 90 L 03/28/18 04:50 79 17 110/50 92 L 03/28/18 04:40 77 20 110/50 91 L 03/28/18 04:30 78 23 118/49 91 L 03/28/18 04:20 77 20 118/49 90 L 03/28/18 04:10 80 18 118/49 90 L 03/28/18 04:00 99.9 F H 77 18 117/48 90 L 03/28/18 03:50 78 21 117/48 91 L 03/28/18 03:40 82 19 117/48 90 L 03/28/18 03:30 80 16 113/64 91 L 03/28/18 03:20 82 15 113/64 91 L 03/28/18 03:10 81 21 113/64 91 L 12/31/18 03:00 82 19 104/82 90 L 03/28/18 02:50 82 21 104/82 90 L 03/28/18 02:40 80 17 104/82 91 L 03/28/18 02:30 84 36 H 93/54 89 L 03/28/18 02:20 82 22 93/54 90 L 03/28/18 02:10 84 19 93/54 88 L 03/28/18 02:00 84 19 86/53 89 L 03/28/18 01:50 80 20 86/53 86 L 03/28/18 01:30 83 16 163/67 90 L 03/28/18 01:00 85 10 L 105/40 88 L 03/28/18 00:30 79 17 94/47 83 L 03/28/18 00:00 78 14 118/42 92 L 03/27/18 23:30 98.2 F 80 16 104/45 91 L 03/27/18 23:20 98.2 F 82 79 15 104/45 118/42 89 L 03/27/18 22:00 97.9 F 85 20 109/46 95 03/27/18 21:00 99.0 F 86 22 107/46 94 L 03/27/18 20:45 20 111/51 93 L 03/27/18 20:06 82 03/27/18 20:00 84 22 112/82 93 L 03/27/18 19:58 82 03/27/18 19:12 89 22 118/44 89 L 03/27/18 18:34 22 03/27/18 17:58 99.3 F 84 22 94 L Intake and Output 03/28/18 03/28/18 03/28/18 06:59 14:59 22:59 Intake Total 3600 625 50 Output Total 505 725 250 Balance 3095 -100 -200 Intake: IV 1100 625 50 Piperacillin-Tazobactam 3 100 25 50 .375 gm In Sodium Chloride 0.9% 100 ml @ 25 mls/hr IVPB ONCE STA Rx# :[id number] Sodium Chloride 0.9% 1, 500 600 000 ml @ 100 mls/hr IV . Q10H FOR[facility], [facility] Rx#:[id number] Vancomycin 2,500 mg In 500 Sodium Chloride 0.9% 500 ml @ 125 mls/hr IVPB ONCE ONE Rx#:[id number] Amount of Fluid Infused ( 2500 ml) Output: Urine 505 725 250 Other: Voiding Method Indwelling Catheter Indwelling Catheter Indwelling Catheter Weight 182.3 kg 182.3 kg 182.3 kg 83-year-old male BiPAP in place HEENT: Anicteric conjunctiva are pink and moist nasal mucosa grossly intact without significant lesions, oral mucosa is dry evidence of some bleeding tongue dry and cracked likely thrush Neck: The neck is supple without significant lymphadenopathy or thyromegaly. Lungs: Symmetrical air entry is noted, bronchial sounds in the left base , expiratory wheezes are scattered. scattered crackles Heart: Regular rate and rhythm with an audible S1-S2, no S3 no S4. There is no significant murmur click or rub, PMI was nondisplaced. Abdomen: Obese Positive bowel sounds soft and nontender without palpable masses or organomegaly. There was no guarding or rebound. Extremities: Upper and lower extremities show evidence of some edema Skin please see the nursing photography for the pressure ulcerations that are present on admission including, coccyx stage III pressure ulceration, left upper thigh pressure ulceration stage III Neuro: Awake alert oriented to person was able to follow simple commands hearing is very poor Results CBC & Chem 7: 03/28/18 04:10 03/28/18 04:10 Labs: Abnormal Lab Results - Last 24 Hours (Table) 03/27/18 03/28/18 03/28/18 Range/Units 23:09 04:10 04:10 RBC 3.56 L (4.30-5.90) m/uL Hgb 10.0 L (13.0-17.5) gm/dL Hct 31.4 L (39.0-53.0) % RDW 18.8 H (11.5-15.5) % Lymphocytes # 0.2 L (1.0-4.8) k/uL ABG pCO2 (35-45) mmHg ABG pO2 (83-108) mmHg ABG HCO3 (21-25) mmol/L ABG Total CO2 (19-24) mmol/L ABG O2 Saturation (94-97) % Sodium (137-145) mmol/L BUN (9-20) mg/dL Glucose (74-99) mg/dL POC Glucose (mg/dL) 292 H (75-99) mg/dL Hemoglobin A1c 9.8 H (4.0-6.0) % Calcium (8.4-10.2) mg/dL Magnesium (1.6-2.3) mg/dL Urine Protein (Negative) Urine Blood (Negative) Urine RBC (0-5) /hpf Urine Bacteria (None) /hpf Urine Mucus (None) /hpf 03/28/18 03/28/18 03/28/18 Range/Units 04:10 05:00 06:56 RBC (4.30-5.90) m/uL Hgb (13.0-17.5) gm/dL Hct (39.0-53.0) % RDW (11.5-15.5) % Lymphocytes # (1.0-4.8) k/uL ABG pCO2 (35-45) mmHg ABG pO2 (83-108) mmHg ABG HCO3 (21-25) mmol/L ABG Total CO2 (19-24) mmol/L ABG O2 Saturation (94-97) % Sodium 136 L (137-145) mmol/L BUN 52 H (9-20) mg/dL Glucose 244 H (74-99) mg/dL POC Glucose (mg/dL) 249 H (75-99) mg/dL Hemoglobin A1c (4.0-6.0) % Calcium 7.9 L (8.4-10.2) mg/dL Magnesium 1.5 L (1.6-2.3) mg/dL Urine Protein 1+ H (Negative) Urine Blood Moderate H (Negative) Urine RBC 11 H (0-5) /hpf Urine Bacteria Rare H (None) /hpf Urine Mucus Rare H (None) /hpf 03/28/18 03/28/18 Range/Units 09:18 11:45 RBC (4.30-5.90) m/uL Hgb (13.0-17.5) gm/dL Hct (39.0-53.0) % RDW (11.5-15.5) % Lymphocytes # (1.0-4.8) k/uL ABG pCO2 48 H (35-45) mmHg ABG pO2 59 L* (83-108) mmHg ABG HCO3 28 H (21-25) mmol/L ABG Total CO2 29 H (19-24) mmol/L ABG O2 Saturation 90.5 L (94-97) % Sodium (137-145) mmol/L BUN (9-20) mg/dL Glucose (74-99) mg/dL POC Glucose (mg/dL) 231 H (75-99) mg/dL Hemoglobin A1c (4.0-6.0) % Calcium (8.4-10.2) mg/dL Magnesium (1.6-2.3) mg/dL Urine Protein (Negative) Urine Blood (Negative) Urine RBC (0-5) /hpf Urine Bacteria (None) /hpf Urine Mucus (None) /hpf Microbiology - Last 24 Hours (Table) 03/27/18 23:45 Gram Stain - Preliminary Sputum Sputum Culture - Preliminary 03/28/18 05:00 Urine Culture - Preliminary Urine,Catheterized Laboratory Results WBC 4.9 k/uL (3.8-10.6) 03/28/18 04:10 RBC 3.56 m/uL (4.30-5.90) L 03/28/18 04:10 Hgb 10.0 gm/dL (13.0-17.5) L 03/28/18 04:10 Hct 31.4 % (39.0-53.0) L 03/28/18 04:10 MCV 88.3 fL (80.0-100.0) 03/28/18 04:10 MCH 28.1 pg (25.0-35.0) 03/28/18 04:10 MCHC 31.8 g/dL (31.0-37.0) 03/28/18 04:10 RDW 18.8 % (11.5-15.5) H 03/28/18 04:10 Plt Count 158 k/uL (150-450) 03/28/18 04:10 Neutrophils % 87 % 03/28/18 04:10 Lymphocytes % 4 % 03/28/18 04:10 Monocytes % 5 % 03/28/18 04:10 Eosinophils % 2 % 03/28/18 04:10 Basophils % 1 % 03/28/18 04:10 Neutrophils # 4.3 k/uL (1.3-7.7) 03/28/18 04:10 Lymphocytes # 0.2 k/uL (1.0-4.8) L 03/28/18 04:10 Monocytes # 0.2 k/uL (0-1.0) 03/28/18 04:10 Eosinophils # 0.1 k/uL (0-0.7) 03/28/18 04:10 Basophils # 0.0 k/uL (0-0.2) 03/28/18 04:10 Hypochromasia Moderate 03/28/18 04:10 Poikilocytosis Slight 03/28/18 04:10 Anisocytosis Slight 03/28/18 04:10 Sample Site RRAD 03/28/18 09:18 ABG pH 7.37 (7.35-7.45) 03/28/18 09:18 ABG pCO2 48 mmHg (35-45) H 03/28/18 09:18 ABG pO2 59 mmHg (83-108) L* 03/28/18 09:18 ABG HCO3 28 mmol/L (21-25) H 03/28/18 09:18 ABG Total CO2 29 mmol/L (19-24) H 03/28/18 09:18 ABG O2 Saturation 90.5 % (94-97) L 03/28/18 09:18 ABG Base Excess 2.3 mmol/L 03/28/18 09:18 Jared Test Yes 03/28/18 09:18 FiO2 32 % 03/28/18 09:18 Sodium 136 mmol/L (137-145) L 03/28/18 04:10 Potassium 4.2 mmol/L (3.5-5.1) 03/28/18 04:10 Chloride 103 mmol/L (98-107) 03/28/18 04:10 Carbon Dioxide 25 mmol/L (22-30) 03/28/18 04:10 Anion Gap 8 mmol/L 03/28/18 04:10 BUN 52 mg/dL (9-20) H 03/28/18 04:10 Creatinine 1.19 mg/dL (0.66-1.25) 03/28/18 04:10 Est GFR (CKD-EPI)AfAm 65 (>60 ml/min/1.73 sqM) 03/28/18 04:10 Est GFR (CKD-EPI)NonAf 56 (>60 ml/min/1.73 sqM) 03/28/18 04:10 Glucose 244 mg/dL (74-99) H 03/28/18 04:10 POC Glucose (mg/dL) 231 mg/dL (75-99) H 03/28/18 11:45 POC Glu Director Of Adult Epilepsy ID Nicol Richards 03/28/18 11:[address] Glu mg/dL 235 03/28/18 04:10 Hemoglobin A1c 9.8 % (4.0-6.0) H 03/28/18 04:10 Plasma Lactic Acid Darrick 1.8 mmol/L (0.7-2.0) 03/27/18 19:00 Calcium 7.9 mg/dL (8.4-10.2) L 03/28/18 04:10 Phosphorus 3.0 mg/dL (2.5-4.5) 03/28/18 04:10 Magnesium 1.5 mg/dL (1.6-2.3) L 03/28/18 04:10 NT-Pro-B Natriuret Pep 1100 pg/mL 03/28/18 04:10 Urine Color Yellow 03/28/18 05:00 Urine Appearance Cloudy (Clear) 03/28/18 05:00 Urine pH 5.5 (5.0-8.0) 03/28/18 05:00 Ur Specific [place] 1.017 (1.001-1.035) 03/28/18 05:00 Urine Protein 1+ (Negative) H 03/28/18 05:00 Urine Glucose (UA) Negative (Negative) 03/28/18 05:00 Urine Ketones Negative (Negative) 03/28/18 05:00 Urine Blood Moderate (Negative) H 03/28/18 05:00 Urine Nitrite Negative (Negative) 03/28/18 05:00 Urine Bilirubin Negative (Negative) 03/28/18 05:00 Urine Urobilinogen <2.0 mg/dL (<2.0) 03/28/18 05:00 Ur Leukocyte Esterase Negative (Negative) 03/28/18 05:00 Urine RBC 11 /hpf (0-5) H 03/28/18 05:00 Urine WBC 1 /hpf (0-5) 03/28/18 05:00 Ur Squamous Epith Cells <1 /hpf (0-4) 03/28/18 05:00 Urine Bacteria Rare /hpf (None) H 03/28/18 05:00 Urine Mucus Rare /hpf (None) H 03/28/18 05:00 Microbiology 03/27/18 23:45 Sputum Gram Stain - Preliminary 03/27/18 23:45 Sputum Sputum Culture - Preliminary 03/28/18 05:00 Urine,Catheterized Urine Culture - Preliminary Assessment and Plan (1) Acute exacerbation of chronic obstructive airways disease Current Visit: Yes Status: Acute Code(s): J44.1 - CHRONIC OBSTRUCTIVE PULMONARY DISEASE W (ACUTE) EXACERBATION SNOMED Code(s): 320585042 (2) MRSA pneumonia Narrative/Plan: 83-year-old male presents from outside hospital with progressive shortness of breath and some hypotension that responded well to fluid resuscitation. He does have the multiple medical troubles that includes his obesity, pulmonary embolus in the past, chronic stage III COPD, chronic anemia and diabetes mellitus type 2. He also has a history of aortic aneurysm with endovascular grafting. Admission there is evidence of a new left lower lobe infiltration as well as exacerbation of underlying COPD and probable volume overload. Receiving diuresis. Healthcare associated pneumonia of concern a consequently Zosyn was added to vancomycin, does have a known history of MRSA Sputum and blood cultures are in process which will help further direct antimicrobial therapy Wound care is ordered for the sacral and thigh pressure ulcerations. These do not appear to be grossly infected at this time. He is in an air mattress. Protein intake is encouraged. Current Visit: Yes Status: Acute Code(s): J15.212 - PNEUMONIA DUE TO METHICILLIN RESISTANT STAPHYLOCOCCUS AUREUS SNOMED Code(s): 267923825029950
--- NOTE | 2018-03-28 17:43 | PN ---
PROGRESS NOTE DATE OF SERVICE: 03/28/2018 This 83-year-old gentleman was admitted with shortness of breath and possible bibasilar pneumonia, sepsis and hypotension is being closely monitored. Patient is in the ICU. Patient sensorium. The patient is on broad-spectrum IV antibiotics. Dr. Stevenson is following the patient closely. The patient also had severe hypoxia. Patient started on BiPAP at this time. The patient also has COPD exacerbation. PAST MEDICAL HISTORY: Reviewed. REVIEW OF SYMPTOMS: Could not be taken. CURRENT MEDICATIONS: Reviewed and include: 1. Tylenol 650 t.i.d. 2. DuoNeb q.i.d. and p.r.n. 3. Aspirin 81 mg b.i.d. 4. Lipitor 20 mg q.h.s. 5. Dulcolax. 6. Pulmicort. 7. Iron sulfate. 8. Lasix. 9. Heparin. 10.NovoLog scale. 11.Levaquin. 12.Milk of Magnesia. 13.Melatonin. 14.Singulair. 15.Narcan. 16.Protonix. 17.Zosyn 3.5 IV q.8h. 18.Flomax. 19.Vancomycin. PHYSICAL EXAM: Patient is alert, oriented x2. Pulse is 57, blood pressure 130/50, respiration 16, temperature 97 degrees, pulse ox 98% on 35% FIO2. Conjunctivae normal. Oral mucosa moist. Neck is no jugular venous distention. No carotid bruit. No lymph node enlargement. Cardiovascular systems: S1, S2 muffled. Respirations: Breath sounds diminished in the bases. Bilateral scattered rhonchi and crackles. Expiratory wheezing also present. ABDOMEN: Soft, obese, nontender. Legs are no edema. No swelling. CENTRAL NERVOUS SYSTEM: Diffusely weak. LABS: WBC 4.2, hemoglobin is 10, ABGs noted. ASSESSMENT: 1. Acute bibasilar pneumonia possibly gram-negative with severe sepsis and septic shock with acute hypoxic respiratory failure. 2. Change in mental status, acute on chronic metabolic encephalopathy. 3. Congestive heart failure acute exacerbation with acute on chronic diastolic dysfunction, ejection fraction 60-65 percent. 4. Chronic obstructive pulmonary disease exacerbation, acute. 5. Diabetes type 2. 6. History of deep vein thrombosis. 7. Hypertension. 8. Hyperlipidemia. 9. History of pulmonary embolism. 10.History of previous deep vein thrombosis, pulmonary embolism. 11.History of recent bilateral pneumonia. 12.Iron deficiency anemia. 13.History of coronary artery disease. 14.History of gout. 15.Chronic constipation. 16.History of chronic kidney stage III. 17.History of generalized edema. 18.History of hyperlipidemia. 19.History of depression. 20.History of glaucoma. 21.History of degenerative joint disease. 22.History of popliteal cyst. 23.Morbid obesity with body mass index of 50.2. 24.History of MRSA in the sputum. 25.NO CODE, NO CPR, NO VENT. RECOMMENDATIONS AND DISCUSSION: Recommend to continue current medications, management and symptomatic treatment. Continue with broad-spectrum IV antibiotics. Continue the bronchodilators. Continue the BiPAP as recommended by Dr. Stevenson. BiPAP settings are noted. The patient is on 12, 10 and at 10 at 34% FiO2. Continue with Zosyn and vancomycin. Follow the cultures. Cultures are negative so far. Prognosis guarded because of multiple complex medical issues. The patient is currently NO CODE as mentioned earlier. Further recommendations to follow. MMODL / IJN: [id number] / DEV
[2018-03-28] MEDS ORDERED: LEVOFLOXACIN 750MG-D5W PMX 500 MG in DEXTROSE/WATER 1 150ML.BAG IVPB SCH (19:00)
[2018-03-28] MEDS ORDERED: LEVOFLOXACIN 750MG-D5W PMX 750 MG in DEXTROSE/WATER 1 150ML.BAG IVPB SCH (19:00)
[2018-03-28] MEDS: LEVOFLOXACIN 500MG-D5W PMX 500 MG in DEXTROSE/WATER 1 100ML.BAG IVPB SCH (19:13)
[2018-03-28 20:47] LABS: Glucose,Whole Blood 119 mg/dL (75-99)
[2018-03-28] MEDS: ATORVASTATIN 20 MG TAB PO SCH (20:51)
[2018-03-29] MEDS: ARTIFICIAL TEARS-HYPROMELLOSE DROPS 15 ML BTL BOTH EYES SCH ×3 (00:12→21:50)
[2018-03-29] MEDS: MELATONIN 5 MG TABLET PO SCH ×2 (00:12→20:56)
[2018-03-29] MEDS: HEPARIN SODIUM,PORCINE 5,000 UNIT/ML 1 ML VIAL SQ SCH ×4 (01:02→23:56)
[2018-03-29] MEDS: SODIUM CHLORIDE 0.9% 1,000 ML IV SCH ×3 (01:05→20:56)
[2018-03-29] MEDS: PIPERACILLIN-TAZOBACTAM 3.375 GM in SODIUM CHLORIDE 0.9% 100 ML IVPB SCH ×3 (04:42→20:55)
[2018-03-29 04:47] LABS: Anisocytosis Slight; Basophils % (A) 1 %; Eosinophils # (A) 0.4 k/uL (0-0.7); Eosinophils % (A) 9 %; HCT 30.3 % (39.0-53.0); HGB 9.8 gm/dL (13.0-17.5); Hypochromasia Moderate; Lymphocytes # (A) 0.7 k/uL (1.0-4.8); Lymphocytes % (A) 13 %; MCH 28.2 pg (25.0-35.0); MCHC 32.2 g/dL (31.0-37.0); MCV 87.6 fL (80.0-100.0); Mean Platelet Volume 7.6; Monocytes # (A) 0.4 k/uL (0-1.0); Monocytes % (A) 7 %; Neutrophils # (A) 3.4 k/uL (1.3-7.7); Neutrophils % (A) 68 %; Platelet Count 151 k/uL (150-450); Poikilocytosis Slight; RBC 3.46 m/uL (4.30-5.90); RDW 18.5 % (11.5-15.5)
[2018-03-29 05:10] LABS: Calcium 8.3 mg/dL (8.4-10.2); Magnesium 1.4 mg/dL (1.6-2.3); Phosphorus 2.8 mg/dL (2.5-4.5); Potassium 3.4 mmol/L (3.5-5.1)
[2018-03-29] MEDS ORDERED: Potassium Replacement Protocol 1 EACH MISC MISCELLANE PRN ×2 (05:31→05:32)
[2018-03-29] MEDS ORDERED: Magnesium Replacement Protocol 1 EACH MISC MISCELLANE PRN (05:31)
[2018-03-29] MEDS: POTASSIUM CHLORIDE ER 20 MEQ TAB.ER PO SCH ×4 (06:06→23:56)
[2018-03-29] MEDS: MAGNESIUM SULFATE-D5W PMX 1 GM in DEXTROSE/WATER 1 100ML.BAG IVPB SCH ×3 (06:12→09:38)
[2018-03-29] MEDS: IPRATROPIUM-ALBUTEROL 3 ML NEB INHALATION SCH ×4 (06:56→19:52)
[2018-03-29] MEDS: BUDESONIDE 0.5 MG/2 ML NEBU INHALATION SCH ×2 (06:57→19:52)
--- NOTE | 2018-03-29 06:58 | XR ---
EXAMINATION TYPE: XR chest 1V DATE OF EXAM: 03/29/2018 COMPARISON: 03/27/2018 HISTORY: Cough TECHNIQUE: Single frontal view of the chest is obtained. FINDINGS: There is a bilateral lower lung reticular opacity not which is stable. Remainder the lungs again demonstrate slightly coarsened interstitial lung markings. There is blunting of the bilateral costophrenic angles. Cardiomediastinal silhouette is prominent in the mid mediastinum and cardiac wesley houette appears mildly enlarged. No pneumothorax is identified. Mild multilevel degenerative changes of thoracic spine are noted. IMPRESSION: 1. Prominent mediastinal size. CT could evaluate for aortic aneurysm. 2. Bilateral basilar reticular opacity favored to represent pneumonia appears stable. Small bilateral pleural effusions noted.
[2018-03-29 07:09] LABS: Glucose,Whole Blood 209 mg/dL (75-99)
[2018-03-29] MEDS: VANCOMYCIN 2,250 MG in SODIUM CHLORIDE 0.9% 500 ML 500 ML IVPB SCH ×2 (08:01→23:57)
[2018-03-29] MEDS: INSULIN ASPART 100 UNIT/ML 1 ML 10 ML VIAL SQ SCH ×3 (08:02→16:48)
[2018-03-29] MEDS: ACETAMINOPHEN TAB 325 MG TAB PO SCH ×3 (08:02→20:56)
[2018-03-29] MEDS: FERROUS SULFATE 325 MG TAB PO SCH (08:03)
[2018-03-29] MEDS: FUROSEMIDE 40 MG TAB PO SCH (08:03)
[2018-03-29] MEDS: PANTOPRAZOLE 40 MG/10 ML VIAL IV SCH (08:03)
[2018-03-29] MEDS: MONTELUKAST 10 MG TAB PO SCH (08:03)
[2018-03-29] MEDS: TAMSULOSIN 0.4 MG CAP.ER.24H PO SCH (08:03)
[2018-03-29] MEDS: ASPIRIN 81 MG PO SCH (08:03)
--- NOTE | 2018-03-29 11:41 | P.PN ---
Subjective Progress Note Date: 03/29/18 Principal diagnosis: Acute sepsis and left lower lobe pneumonia, could be community-acquired, or could be secondary to MRSA. This is an 83-year-old white male with history of multiple medical problems including severe COPD, type 2 diabetes, severe hearing disorder, hypertension, previous history of deep vein thromboses and pulmonary embolism. Patient was seen yesterday at [facility] complaining of shortness of breath, cough, wheezing, and apparently upon arrival to the hospital he was noted to be hypotensive. Patient was given IV fluids boluses, about 4 L. Started on broad- spectrum antibiotics for presumptive pneumonia, transferred to [facility], seen in the ER, chest x-ray showed left basilar reticular opacity highly suspicious of pneumonia. Patient was admitted, placed on broad- spectrum antibiotics, did not require any pressors, and this consult was initiated. CBC showed WBC count of 4.90 glucose was 10.0. His ABG showed a pO2 of 59 pCO2 of 48 and pH of 7.37 and this was on 32% FiO2. Basic metabolic profile was normal, bicarb was normal. BUN was 52 creatinine 1.19. Blood sugar was elevated at 249. Lactic acid was 1.8. ProBNP level was borderline elevated. Magnesium level was 1.5. Patient is feeling better since he was admitted to the ICU, he is hemodynamically stable, he is presently afebrile, denies any headache, no blurred vision no dizziness, he has some cough and shortness of breath. Denied any chest pain no nausea no vomiting no abdominal pain no melena no hematemesis no dysuria and no frequency no urgency. Patient was started by the admitting physician on bronchodilators, he is also on antibiotics in the form of Zosyn, vancomycin, and Levaquin. Cultures are pending. And that his urine cultures. Cultures and blood cultures. Patient was reevaluated today on 03/29/2018, patient remains in the ICU, however he is hemodynamically stable. Denies any shortness of breath, no cough, no wheezing. No chest pain, no fever, no chills, no hemoptysis. Is not requiring any pressors. His CBC is relatively normal WBC count is 5 hemoglobin is 9.8 electrolytes are normal except for low potassium of 3.4. BUN is 41 creatinine is 0.99. Blood sugar is 219. Magnesium is a bit low at 1.4. Blood cultures remain negative. Sputum cultures are pending. Patient was seen by Dr. Dangelo on consultation, and he was concerned about the possibility of MRSA pneumonia since the patient had previous history of MRSA pneumonia. And he kept the patient on vancomycin and Zosyn. Objective - Vital Signs Vital signs: Vital Signs Temp 98 F 03/29/18 08:00 Pulse 79 03/29/18 11:21 Resp 16 03/29/18 11:21 BP 130/58 03/29/18 09:00 Pulse Ox 94 L 03/29/18 09:00 Intake & Output 03/28/18 03/29/18 03/29/18 18:59 06:59 18:59 Intake Total 875 850 559 Output Total 1175 2475 450 Balance -300 -1625 109 Weight 182.3 kg 183.3 kg Intake: IV 875 750 25 Piperacillin-Tazobactam 3 75 250 25 .375 gm In Sodium Chloride 0.9% 100 ml @ 25 mls/hr IVPB ONCE [facility] Rx# :[id number] Sodium Chloride 0.9% 1, 800 500 0 000 ml @ 100 mls/hr IV . Q10H [facility] Rx#:[id number] Intake, IV Titration 100 534 Amount Magnesium Sulfate-D5w Pmx 100 200 1 gm In Dextrose/Water 1 100ml.bag @ 100 mls/hr IVPB Q1H [facility] Rx#: [id number] Vancomycin 2,250 mg In 334 Sodium Chloride 0.9% 500 ml 500 ml @ 167 mls/hr IVPB Q16H [facility] Rx#: [id number] Output: Urine 1175 2475 450 Other: Voiding Method Indwelling Catheter Indwelling Catheter Indwelling Catheter - Exam Physical Exam: Revealed an 83-year-old white male in no distress. On 3 L nasal cannula. Head: Atraumatic, normocephalic, hearing aids are in place. HEENT:[Neck is supple.] [No neck masses.] [No thyromegaly.] [No JVD.] Chest: [Diminished breath sounds at the bases, no crackles, no rhonchi and no wheezes. Cardiac Exam: [Normal S1 and S2, no S3 gallop, no murmur.] Abdomen: [Obese, Soft, nontender, no megaly, no rebound, no guarding, normal bowel sounds.] Extremities: [No clubbing, no edema, no cyanosis.] Neurological Exam: [No focal neurologic deficit.] Psychiatric: Normal mood, affect and mental status examination. Lymphatics: No evidence of lymphadenopathy. Skin: No rashes. - Labs CBC & Chem 7: 03/29/18 04:19 03/29/18 04:19 Labs: Abnormal Lab Results - Last 24 Hours (Table) 03/28/18 03/28/18 03/28/18 Range/Units 04:10 11:45 20:46 RBC (4.30-5.90) m/uL Hgb (13.0-17.5) gm/dL Hct (39.0-53.0) % RDW (11.5-15.5) % Lymphocytes # (1.0-4.8) k/uL Potassium (3.5-5.1) mmol/L BUN (9-20) mg/dL Glucose (74-99) mg/dL POC Glucose (mg/dL) 231 H 119 H (75-99) mg/dL Hemoglobin A1c 9.8 H (4.0-6.0) % Calcium (8.4-10.2) mg/dL Magnesium (1.6-2.3) mg/dL 03/29/18 03/29/18 03/29/18 Range/Units 04:19 04:19 07:07 RBC 3.46 L (4.30-5.90) m/uL Hgb 9.8 L (13.0-17.5) gm/dL Hct 30.3 L (39.0-53.0) % RDW 18.5 H (11.5-15.5) % Lymphocytes # 0.7 L (1.0-4.8) k/uL Potassium 3.4 L (3.5-5.1) mmol/L BUN 41 H (9-20) mg/dL Glucose 146 H (74-99) mg/dL POC Glucose (mg/dL) 209 H (75-99) mg/dL Hemoglobin A1c (4.0-6.0) % Calcium 8.3 L (8.4-10.2) mg/dL Magnesium 1.4 L (1.6-2.3) mg/dL Microbiology - Last 24 Hours (Table) 03/27/18 19:00 Blood Culture - Preliminary Blood No Growth after 24 hours 03/27/18 23:45 Gram Stain - Preliminary Sputum Sputum Culture - Preliminary 03/28/18 05:00 Urine Culture - Preliminary Urine,Catheterized Assessment and Plan Assessment: Impression: 1 acute community-acquired left lower lobe pneumonia, possible MRSA pneumonia since the patient had previous history of MRSA pneumonia. Sputum cultures are pending. 2 suspect sepsis based on the fact that the patient was hypotensive on presentation, responded mostly to fluid boluses. 3 acute exacerbation of COPD 4 type 2 diabetes 5 benign essential hypertension 6 chronic kidney disease stage III 7 history of recent bilateral pneumonia 8 mixed hyperlipidemia 9 previous history of deep vein thromboses and pulmonary embolism 10 history of gout 11 underlying coronary artery disease Recommendation: Continue present course of antibiotics, continue cardiac meds, continue bronchodilators, continue oxygen, continue GI and DVT prophylaxis, patient's pulmonary status remains marginal at best, however I believe the patient could be safely transferred out of the ICU to a regular medical floor. All his meds were reviewed, bronchodilators were noted. Antibiotics were noted , unchanged. We will continue to monitor his renal profile closely, may cut down on his diuretics. The dose of Lasix will be cut down to 40 mg daily instead of 40 mg twice a day. And I have made arrangements for the patient be transferred to a medical surgical floor today. We'll continue to follow Time with Patient: Less than 30
[2018-03-29 11:53] LABS: Glucose,Whole Blood 213 mg/dL (75-99)
[2018-03-29 16:56] LABS: Glucose,Whole Blood 225 mg/dL (75-99)
--- NOTE | 2018-03-29 17:35 | PN ---
PROGRESS NOTE DATE OF SERVICE: 03/29/2018 This 83-year-old gentleman was admitted with multiple medical problems including bibasilar pneumonia and possible sepsis with septic shock and acute hypoxic respiratory failure, on broad-spectrum IV antibiotics. The patient's sensorium is slightly improving at this time. The patient was also on BiPAP last night. Multiple consultants including Pulmonary, Infectious Disease is following the patient closely. PAST MEDICAL HISTORY: Reviewed. REVIEW OF SYSTEMS: Could not be taken, the patient is currently still confused. CURRENT MEDICATIONS ARE: 1. Tylenol 650 p.o. t.i.d. 2. DuoNeb q.i.d. and p.r.n. 3. Artificial Tears. 4. Aspirin 81 mg. 5. Lipitor 20 mg q.h.s. 6. Dulcolax 10 mg q.48 hours. 7. Pulmicort 0.5 b.i.d. 8. Iron sulfate 320 mg daily. 9. Lasix 40 mg daily. 10.Heparin 5000 subcu q.8h. 11.Hydrocortisone. 12.Proctosol. 13.NovoLog scale. 14.Levaquin 500 mg daily. 15.Milk of magnesia. 16.Melatonin. 17.Fleet's enema. 18.Replacement protocols. 19.Narcan. 20.Zosyn 3.375 mg IV q.8h. 21.Flomax. 22.Vancomycin 2.25 mg Q 16. PHYSICAL EXAM: Patient is alert and oriented times three. Pulse is 58, blood pressure 123/55, respiration 14, temperature 98 degrees, pulse ox 98% on 2 L. HEENT: Conjunctivae normal. NECK: No jugular venous distention. CARDIOVASCULAR: S1, S2 muffled. RESPIRATORY SYSTEM: Breath sounds diminished at the bases. A few scattered rhonchi and crackles. ABDOMEN: Soft, obese, nontender. LEGS: Bilateral leg edema, hyperpigmented changes. No swelling. NERVOUS SYSTEM: Diffusely weak. LAB STUDIES: WBC 5, hemoglobin is 10.8, sodium 130, potassium 4, Accu-Cheks noted. Magnesium is 1.4. ASSESSMENT: 1. Acute bibasilar pneumonia possibly gram-negative with severe sepsis and septic shock with acute hypoxic respiratory failure. Presumptive Staph aureus and Anika albicans. 2. Change in mental status, acute on chronic metabolic encephalopathy. 3. Gait dysfunction. 4. Congestive heart failure, acute exacerbation with acute on chronic diastolic dysfunction, ejection fraction 60-65 percent. 5. Chronic obstructive pulmonary disease, acute exacerbation. 6. Diabetes mellitus type 2. 7. History of deep vein thrombosis. 8. Hypertension. 9. Hyperlipidemia. 10.History of pulmonary embolism. 11.Hypomagnesemia. 12.Hypokalemia. 13.History of previous deep vein thrombosis, pulmonary embolus. 14.History of recent bilateral pneumonia. 15.Iron deficiency anemia. 16.History of coronary artery disease. 17.History of gout. 18.Chronic constipation. 19.History of chronic kidney stage III. 21.Hyperlipidemia. 22.Depression. 23.Glaucoma. 24.History of degenerative joint disease. 26.Morbid obesity with BMI of 50.2. 27.History of MRSA in the sputum. 28.NO CODE, NO CPR, NO VENT. RECOMMENDATIONS AND DISCUSSION: I recommend to continue current medications, management and symptomatic treatment. Otherwise, at this time, I recommend to continue with the bronchodilators and continue with steroids. Await the cultures. Sputum shows presumptive Staph aureus and Anika albicans. We will continue to monitor. Continue with DVT prophylaxis. Prognosis guarded because of multiple complex medical issues. Further recommendations to follow. See orders for details. MMODL / IJN: [id number] / MTDD
[2018-03-29] MEDS: LEVOFLOXACIN 500MG-D5W PMX 500 MG in DEXTROSE/WATER 1 100ML.BAG IVPB SCH (18:52)
[2018-03-29] MEDS: ATORVASTATIN 20 MG TAB PO SCH (20:56)
[2018-03-30] MEDS: guaiFENesin SYRUP 100MG/5ML 200 MG/10 ML CUP PO PRN ×2 (02:32→09:30)
[2018-03-30] MEDS: PIPERACILLIN-TAZOBACTAM 3.375 GM in SODIUM CHLORIDE 0.9% 100 ML IVPB SCH ×3 (03:08→21:16)
[2018-03-30] MEDS: SODIUM CHLORIDE 0.9% 1,000 ML IV SCH ×2 (05:14→16:09)
[2018-03-30 07:29] LABS: Glucose,Whole Blood 228 mg/dL (75-99)
[2018-03-30] MEDS: INSULIN ASPART 100 UNIT/ML 1 ML 10 ML VIAL SQ SCH ×3 (07:50→17:52)
[2018-03-30] MEDS: HEPARIN SODIUM,PORCINE 5,000 UNIT/ML 1 ML VIAL SQ SCH ×2 (07:51→16:09)
[2018-03-30 08:49] LABS: Anisocytosis Slight; Basophils % (A) 1 %; Eosinophils # (A) 0.4 k/uL (0-0.7); Eosinophils % (A) 7 %; HCT 32.1 % (39.0-53.0); HGB 10.1 gm/dL (13.0-17.5); Hypochromasia Slight; Lymphocytes # (A) 0.7 k/uL (1.0-4.8); Lymphocytes % (A) 14 %; MCH 27.5 pg (25.0-35.0); MCHC 31.4 g/dL (31.0-37.0); MCV 87.4 fL (80.0-100.0); Mean Platelet Volume 7.2; Monocytes # (A) 0.4 k/uL (0-1.0); Monocytes % (A) 8 %; Neutrophils # (A) 3.3 k/uL (1.3-7.7); Neutrophils % (A) 68 %; Platelet Count 173 k/uL (150-450); Poikilocytosis Slight; RBC 3.67 m/uL (4.30-5.90); RDW 18.5 % (11.5-15.5); WBC 4.9 k/uL (3.8-10.6)
[2018-03-30 09:03] LABS: Anion Gap 7 mmol/L; Blood Urea Nitrogen 25 mg/dL (9-20); Calcium 8.3 mg/dL (8.4-10.2); Carbon Dioxide 27 mmol/L (22-30); Chloride 104 mmol/L (98-107); Glucose 239 mg/dL (74-99); Magnesium 1.5 mg/dL (1.6-2.3); Phosphorus 2.2 mg/dL (2.5-4.5); Sodium 138 mmol/L (137-145)
[2018-03-30] MEDS: TAMSULOSIN 0.4 MG CAP.ER.24H PO SCH (09:29)
[2018-03-30] MEDS: ACETAMINOPHEN TAB 325 MG TAB PO SCH ×3 (09:29→21:17)
[2018-03-30] MEDS: ASPIRIN 81 MG PO SCH (09:29)
[2018-03-30 09:30] LABS: ABG PO2 59 mmHg (83-108)
[2018-03-30] MEDS: FERROUS SULFATE 325 MG TAB PO SCH (09:30)
[2018-03-30] MEDS: FUROSEMIDE 40 MG TAB PO SCH (09:30)
[2018-03-30] MEDS: ARTIFICIAL TEARS-HYPROMELLOSE DROPS 15 ML BTL BOTH EYES SCH ×2 (09:30→21:16)
[2018-03-30] MEDS: PANTOPRAZOLE 40 MG/10 ML VIAL IV SCH (09:30)
[2018-03-30] MEDS: MONTELUKAST 10 MG TAB PO SCH (09:30)
[2018-03-30] MEDS: IPRATROPIUM-ALBUTEROL 3 ML NEB INHALATION SCH ×4 (09:47→20:21)
[2018-03-30] MEDS: BUDESONIDE 0.5 MG/2 ML NEBU INHALATION SCH ×2 (09:47→20:22)
[2018-03-30 11:55] LABS: Glucose,Whole Blood 212 mg/dL (75-99)
--- NOTE | 2018-03-30 12:35 | P.PN ---
Subjective Progress Note Date: 03/30/18 Principal diagnosis: Acute sepsis and left lower lobe pneumonia, community-acquired, or healthcare acquired secondary to MRSA This is an 83-year-old white male with history of multiple medical problems including severe COPD, type 2 diabetes, severe hearing disorder, hypertension, previous history of deep vein thromboses and pulmonary embolism. Patient was seen yesterday at [facility] complaining of shortness of breath, cough, wheezing, and apparently upon arrival to the hospital he was noted to be hypotensive. Patient was given IV fluids boluses, about 4 L. Started on broad- spectrum antibiotics for presumptive pneumonia, transferred to [facility], seen in the ER, chest x-ray showed left basilar reticular opacity highly suspicious of pneumonia. Patient was admitted, placed on broad- spectrum antibiotics, did not require any pressors, and this consult was initiated. CBC showed WBC count of 4.90 glucose was 10.0. His ABG showed a pO2 of 59 pCO2 of 48 and pH of 7.37 and this was on 32% FiO2. Basic metabolic profile was normal, bicarb was normal. BUN was 52 creatinine 1.19. Blood sugar was elevated at 249. Lactic acid was 1.8. ProBNP level was borderline elevated. Magnesium level was 1.5. Patient is feeling better since he was admitted to the ICU, he is hemodynamically stable, he is presently afebrile, denies any headache, no blurred vision no dizziness, he has some cough and shortness of breath. Denied any chest pain no nausea no vomiting no abdominal pain no melena no hematemesis no dysuria and no frequency no urgency. Patient was started by the admitting physician on bronchodilators, he is also on antibiotics in the form of Zosyn, vancomycin, and Levaquin. Cultures are pending. And that his urine cultures. Cultures and blood cultures. Patient was reevaluated today on 03/29/2018, patient remains in the ICU, however he is hemodynamically stable. Denies any shortness of breath, no cough, no wheezing. No chest pain, no fever, no chills, no hemoptysis. Is not requiring any pressors. His CBC is relatively normal WBC count is 5 hemoglobin is 9.8 electrolytes are normal except for low potassium of 3.4. BUN is 41 creatinine is 0.99. Blood sugar is 219. Magnesium is a bit low at 1.4. Blood cultures remain negative. Sputum cultures are pending. Patient was seen by Dr. Dangelo on consultation, and he was concerned about the possibility of MRSA pneumonia since the patient had previous history of MRSA pneumonia. And he kept the patient on vancomycin and Zosyn. On 03/30/2018 patient seen in follow-up on medical surgical floor. Lung sounds are positive for diffuse wheezes, patient still having some coughing spells. Current antibiotic coverage includes vancomycin and Zosyn, sputum cultures are positive for presumptive staph. Final cultures pending, currently on 2 L per nasal cannula his pulse ox is 97%, afebrile, hemodynamically stable. Blood and urine cultures were negative. He did have to wear BiPAP last night. Patient is usually not on CPAP or BiPAP. Resident of the [facility]. ID service is following. Today's lab work has been reviewed, shows the VC of 4.9, hemoglobin of 10.1, electrolytes were within normal limits, BUN is 25 and creatinine was 0.89. Objective - Vital Signs Vital signs: Vital Signs Temp 97.5 F L 03/30/18 07:43 Pulse 65 03/30/18 10:02 Resp 14 03/30/18 07:43 BP 135/67 03/30/18 07:43 Pulse Ox 97 03/30/18 07:43 Intake & Output 03/29/18 03/30/18 03/30/18 18:59 06:59 18:59 Intake Total 1359 1700 350 Output Total 1700 Balance -341 1700 350 Intake: IV 425 Piperacillin-Tazobactam 3 25 .375 gm In Sodium Chloride 0.9% 100 ml @ 25 mls/hr IVPB ONCE [facility] Rx# :[id number] Sodium Chloride 0.9% 1, 400 000 ml @ 100 mls/hr IV . Q10H [facility] Rx#:[id number] Intake, IV Titration 934 1700 Amount Magnesium Sulfate-D5w Pmx 600 1 gm In Dextrose/Water 1 100ml.bag @ 100 mls/hr IVPB Q1H [facility] Rx#: [id number] Sodium Chloride 0.9% 1, 1200 000 ml @ 100 mls/hr IV . Q10H [facility] Rx#:[id number] Vancomycin 2,250 mg In 334 500 Sodium Chloride 0.9% 500 ml 500 ml @ 167 mls/hr IVPB Q16H [facility] Rx#: [id number] Oral 350 Output: Urine 1700 Other: Voiding Method Indwelling Catheter Indwelling Catheter Indwelling Catheter - Exam Obese, the patient is currently not having any significant distress and is calm and comfortable. Head exam was generally normal. There was no scleral icterus or corneal arcus. Mucous membranes were moist. Neck was supple and without jugular venous distension, thyromegaly, or carotid bruits. Carotids were easily palpable bilaterally. There was no adenopathy. The patient has significant crowding of the posterior oropharynx and a Mallampati class IV Lungs sounds are positive for diffuse wheezes bilaterally Cardiac exam revealed the PMI to be normally situated and sized. The rhythm was regular and no extrasystoles were noted during several minutes of auscultation. The first and second heart sounds were normal and physiologic splitting of the second heart sound was noted. There were no murmurs, rubs, clicks, or gallops. Abdomen is soft obese and nontender. No direct tenderness. No rebound tenderness. No guarding. Bowel sounds are hypoactive at the present. Extremities revealed +1 pitting edema there is no cyanosis or clubbing. Pulses are present lower extremity is bilaterally. Neurologic the patient is awake and alert and he has profound weakness in lower extremities and he is unable to ambulate and this is a chronic problem. Otherwise his neurologic exam is nonfocal. Examination of the skin revealed no evidence of significant rashes, suspicious appearing nevi or other concerning lesions. - Labs CBC & Chem 7: 03/30/18 08:07 03/30/18 08:07 Labs: Abnormal Lab Results - Last 24 Hours (Table) 03/28/18 03/29/18 03/30/18 Range/Units 09:18 16:43 06:44 RBC (4.30-5.90) m/uL Hgb (13.0-17.5) gm/dL Hct (39.0-53.0) % RDW (11.5-15.5) % Lymphocytes # (1.0-4.8) k/uL ABG pO2 59 L* (83-108) mmHg BUN (9-20) mg/dL Glucose (74-99) mg/dL POC Glucose (mg/dL) 225 H 228 H (75-99) mg/dL Calcium (8.4-10.2) mg/dL Phosphorus (2.5-4.5) mg/dL Magnesium (1.6-2.3) mg/dL 03/30/18 03/30/18 03/30/18 Range/Units 08:07 08:07 11:43 RBC 3.67 L (4.30-5.90) m/uL Hgb 10.1 L (13.0-17.5) gm/dL Hct 32.1 L (39.0-53.0) % RDW 18.5 H (11.5-15.5) % Lymphocytes # 0.7 L (1.0-4.8) k/uL ABG pO2 (83-108) mmHg BUN 25 H (9-20) mg/dL Glucose 239 H (74-99) mg/dL POC Glucose (mg/dL) 212 H (75-99) mg/dL Calcium 8.3 L (8.4-10.2) mg/dL Phosphorus 2.2 L (2.5-4.5) mg/dL Magnesium 1.5 L (1.6-2.3) mg/dL Microbiology - Last 24 Hours (Table) 03/27/18 19:00 Blood Culture - Preliminary Blood No Growth after 48 hours 03/27/18 23:45 Gram Stain - Preliminary Sputum Sputum Culture - Preliminary Presumptive Staph aureus Anika albicans 03/28/18 05:00 Urine Culture - Final Urine,Catheterized Assessment and Plan Plan: Assessment: 1 acute community-acquired left lower lobe pneumonia 2 suspect sepsis based on the fact that the patient was hypotensive on presentation, responded mostly to fluid boluses. 3 acute exacerbation of COPD 4 type 2 diabetes 5 benign essential hypertension 6 chronic kidney disease stage III 7 history of recent bilateral pneumonia 8 mixed hyperlipidemia 9 previous history of deep vein thromboses and pulmonary embolism 10 history of gout 11 underlying coronary artery disease Plan: Antibiotics per ID service recommendations, patient is currently on Zosyn, Levaquin and vancomycin. Sputum culture is positive for presumptive staph species, awaiting final culture. Still dyspneic, having coughing spells, and is quite bronchospastic. Continue with BiPAP support on as-needed basis. Continue oral Lasix. We'll continue to follow I performed a history & physical examination of the patient and discussed their management with my nurse practitioner, Kim Patel. I reviewed the nurse practitioner's note and agree with the documented findings and plan of care. Lung sounds are positive for diffuse wheezes throughout the lung mittal. The findings and the impression was discussed with the patient. I attest to the documentation by the nurse practitioner. Time with Patient: Less than 30
[2018-03-30] MEDS ORDERED: VANCOMYCIN TROUGH DUE 1 EACH MISC MISCELLANE ONE (15:00)
[2018-03-30] MEDS: VANCOMYCIN 2,250 MG in SODIUM CHLORIDE 0.9% 500 ML 500 ML IVPB SCH (16:09)
[2018-03-30 17:15] LABS: Glucose,Whole Blood 204 mg/dL (75-99)
--- NOTE | 2018-03-30 17:54 | PN ---
PROGRESS NOTE DATE OF SERVICE: 03/30/2018 This 83-year-old gentleman who was admitted with multiple medical problems, including bibasilar pneumonia with possible sepsis and septic shock, also had acute hypoxic respiratory failure. The patient's cultures show MRSA and Anika albicans. The patient is being closely monitored at this time. The patient was started on vancomycin. Infectious Disease is also following the patient closely. Past medical history reviewed. REVIEW OF SYSTEMS: CARDIOVASCULAR SYSTEM: No angina, palpitations. RESPIRATORY SYSTEM: As mentioned earlier. GI: As mentioned earlier. : No dysuria or retention. NERVOUS SYSTEM: No numbness, weakness.. CURRENT MEDICATIONS: Reviewed. They include: 1. Tylenol 650 p.o. t.i.d. 2. DuoNeb q.i.d. and p.r.n. 3. Artificial Tears. 4. Aspirin 81 mg daily. 5. Lipitor 20 mg at bedtime. 6. Dulcolax 10 mg q.48 hours. 7. Pulmicort 0.5 b.i.d. 8. Iron sulfate 325 mg daily. 9. Lasix 40 mg p.o. daily. 10.Robitussin 200 mg p.r.n. 11.Heparin subcutaneously q.8. 12.Proctosol. 13.NovoLog. 14.Levaquin 500 mg p.o. q.24 hours. 15.Milk of Magnesia. 16.Melatonin 5 mg at bedtime. 17.Fleet enema. 18.Replacement protocol. 19.Singulair. 20.Narcan. 21.Protonix. 22.Zosyn 3.375 IV q.8. 23.Flomax 0.4 daily. 24.Vancomycin 2.25 IV q.8. PHYSICAL EXAMINATION: Patient is alert, oriented x2. Pulse 66, blood pressure 92/54, respiration 16, temperature 98 degrees, pulse ox 98% on 2 L. HEENT: Conjunctivae normal. Oral mucosa moist. NECK: No jugular venous distention. No carotid bruit. No lymph node enlargement. CARDIOVASCULAR SYSTEM: S1, S2 muffled. RESPIRATORY SYSTEM: Breath sounds diminished at the bases. Bilateral scattered rhonchi and crackles. ABDOMEN: Soft, obese, non-tender. LEGS: No edema. No swelling. NERVOUS SYSTEM: No focal deficit. LABS: WBC 4.9, hemoglobin 10.1, sodium 138, potassium 4. ASSESSMENT: 1. Acute bibasilar pneumonia, possibly gram-negative, with severe sepsis and septic shock with acute hypoxic respiratory failure with methicillin-resistant Staphylococcus aeruginosa and Anika albicans. 2. Change in mental status, metabolic encephalopathy, acute on chronic. 3. Gait dysfunction. 4. Congestive heart failure, acute exacerbation, with acute on chronic diastolic dysfunction, ejection fraction 60% to 65%. 5. Chronic obstructive pulmonary disease, acute exacerbation. 6. Diabetes mellitus, type 2. 7. History of deep vein thrombosis. 8. Hypertension. 9. Hyperlipidemia. 10.History of pulmonary embolism. 11.Hypomagnesemia. 12.Hypokalemia. 13.History of previous deep venous thrombosis, pulmonary embolus. 14.History of recent bilateral pneumonia. 15.History of iron deficiency anemia. 16.History of coronary artery disease. 17.History of gout. 18.History of chronic constipation. 19.History of chronic kidney disease, stage III. 20.Depression. 21.Glaucoma. 22.History of degenerative joint disease. 23.Morbid obesity with body mass index of 50.2. 24.History of methicillin-resistant Staphylococcus aeruginosa in the sputum. 25.NO CODE, NO CPR, NO VENT. RECOMMENDATIONS AND DISCUSSION: I recommend to continue current management, continue symptomatic treatment. Will continue the vancomycin. Otherwise, continue the rest of the medication. PT/OT evaluation. Possible ECF rehab. Otherwise, continue the rest of the medications. DVT prophylaxis. Bronchodilators. Follow closely with multiple consultants. Prognosis guarded because of multiple complex medical issues. Further recommendations to follow. MMODL / IJN: [id number] /
[2018-03-30 21:07] LABS: Glucose,Whole Blood 199 mg/dL (75-99)
[2018-03-30] MEDS: LEVOFLOXACIN 500 MG TAB PO SCH (21:15)
[2018-03-30] MEDS: MELATONIN 5 MG TABLET PO SCH (21:17)
[2018-03-30] MEDS: ATORVASTATIN 20 MG TAB PO SCH (21:17)
[2018-03-31] MEDS: HEPARIN SODIUM,PORCINE 5,000 UNIT/ML 1 ML VIAL SQ SCH ×3 (00:20→17:21)
[2018-03-31] MEDS: SODIUM CHLORIDE 0.9% 1,000 ML IV SCH ×3 (04:48→22:12)
[2018-03-31] MEDS: PIPERACILLIN-TAZOBACTAM 3.375 GM in SODIUM CHLORIDE 0.9% 100 ML IVPB SCH ×3 (04:48→22:02)
[2018-03-31 07:17] LABS: Glucose,Whole Blood 204 mg/dL (75-99)
[2018-03-31] MEDS: VANCOMYCIN 2,000 MG in SODIUM CHLORIDE 0.9% 500 ML 500 ML IVPB SCH (08:13)
[2018-03-31] MEDS: INSULIN ASPART 100 UNIT/ML 1 ML 10 ML VIAL SQ SCH ×3 (08:14→17:22)
[2018-03-31] MEDS: ACETAMINOPHEN TAB 325 MG TAB PO SCH ×3 (08:14→22:11)
[2018-03-31] MEDS: PANTOPRAZOLE 40 MG/10 ML VIAL IV SCH (08:14)
[2018-03-31] MEDS: MONTELUKAST 10 MG TAB PO SCH (08:15)
[2018-03-31] MEDS: ARTIFICIAL TEARS-HYPROMELLOSE DROPS 15 ML BTL BOTH EYES SCH ×2 (08:15→22:10)
[2018-03-31] MEDS: TAMSULOSIN 0.4 MG CAP.ER.24H PO SCH (08:15)
[2018-03-31] MEDS: FERROUS SULFATE 325 MG TAB PO SCH (08:15)
[2018-03-31] MEDS: ASPIRIN 81 MG PO SCH (08:15)
[2018-03-31] MEDS: FUROSEMIDE 40 MG TAB PO SCH (08:15)
[2018-03-31] MEDS: BUDESONIDE 0.5 MG/2 ML NEBU INHALATION SCH ×2 (08:31→19:18)
[2018-03-31] MEDS: IPRATROPIUM-ALBUTEROL 3 ML NEB INHALATION SCH ×4 (08:31→19:18)
[2018-03-31 09:27] LABS: Anisocytosis Slight; Basophils % (A) 1 %; Eosinophils # (A) 0.4 k/uL (0-0.7); Eosinophils % (A) 8 %; HCT 32.2 % (39.0-53.0); HGB 9.8 gm/dL (13.0-17.5); Hypochromasia Moderate; Lymphocytes # (A) 0.8 k/uL (1.0-4.8); Lymphocytes % (A) 16 %; MCH 26.7 pg (25.0-35.0); MCHC 30.3 g/dL (31.0-37.0); MCV 88.1 fL (80.0-100.0); Mean Platelet Volume 7.4; Monocytes # (A) 0.4 k/uL (0-1.0); Monocytes % (A) 8 %; Neutrophils # (A) 3.1 k/uL (1.3-7.7); Neutrophils % (A) 66 %; Platelet Count 191 k/uL (150-450); Poikilocytosis Slight; RBC 3.65 m/uL (4.30-5.90); RDW 18.5 % (11.5-15.5); WBC 4.8 k/uL (3.8-10.6)
[2018-03-31 09:39] LABS: Anion Gap 7 mmol/L; Blood Urea Nitrogen 19 mg/dL (9-20); Carbon Dioxide 26 mmol/L (22-30); Chloride 105 mmol/L (98-107); Glucose 249 mg/dL (74-99); Magnesium 1.3 mg/dL (1.6-2.3); Phosphorus 2.7 mg/dL (2.5-4.5); Potassium 3.6 mmol/L (3.5-5.1); Sodium 138 mmol/L (137-145)
[2018-03-31 11:48] LABS: Glucose,Whole Blood 230 mg/dL (75-99)
--- NOTE | 2018-03-31 13:27 | P.PN ---
Subjective Progress Note Date: 03/31/18 Principal diagnosis: Acute sepsis and left lower lobe pneumonia, community-acquired, or healthcare acquired secondary to MRSA This is an 83-year-old white male with history of multiple medical problems including severe COPD, type 2 diabetes, severe hearing disorder, hypertension, previous history of deep vein thromboses and pulmonary embolism. Patient was seen yesterday at [facility] complaining of shortness of breath, cough, wheezing, and apparently upon arrival to the hospital he was noted to be hypotensive. Patient was given IV fluids boluses, about 4 L. Started on broad- spectrum antibiotics for presumptive pneumonia, transferred to [facility], seen in the ER, chest x-ray showed left basilar reticular opacity highly suspicious of pneumonia. Patient was admitted, placed on broad- spectrum antibiotics, did not require any pressors, and this consult was initiated. CBC showed WBC count of 4.90 glucose was 10.0. His ABG showed a pO2 of 59 pCO2 of 48 and pH of 7.37 and this was on 32% FiO2. Basic metabolic profile was normal, bicarb was normal. BUN was 52 creatinine 1.19. Blood sugar was elevated at 249. Lactic acid was 1.8. ProBNP level was borderline elevated. Magnesium level was 1.5. Patient is feeling better since he was admitted to the ICU, he is hemodynamically stable, he is presently afebrile, denies any headache, no blurred vision no dizziness, he has some cough and shortness of breath. Denied any chest pain no nausea no vomiting no abdominal pain no melena no hematemesis no dysuria and no frequency no urgency. Patient was started by the admitting physician on bronchodilators, he is also on antibiotics in the form of Zosyn, vancomycin, and Levaquin. Cultures are pending. And that his urine cultures. Cultures and blood cultures. Patient was reevaluated today on 03/29/2018, patient remains in the ICU, however he is hemodynamically stable. Denies any shortness of breath, no cough, no wheezing. No chest pain, no fever, no chills, no hemoptysis. Is not requiring any pressors. His CBC is relatively normal WBC count is 5 hemoglobin is 9.8 electrolytes are normal except for low potassium of 3.4. BUN is 41 creatinine is 0.99. Blood sugar is 219. Magnesium is a bit low at 1.4. Blood cultures remain negative. Sputum cultures are pending. Patient was seen by Dr. Dangelo on consultation, and he was concerned about the possibility of MRSA pneumonia since the patient had previous history of MRSA pneumonia. And he kept the patient on vancomycin and Zosyn. On 03/30/2018 patient seen in follow-up on medical surgical floor. Lung sounds are positive for diffuse wheezes, patient still having some coughing spells. Current antibiotic coverage includes vancomycin and Zosyn, sputum cultures are positive for presumptive staph. Final cultures pending, currently on 2 L per nasal cannula his pulse ox is 97%, afebrile, hemodynamically stable. Blood and urine cultures were negative. He did have to wear BiPAP last night. Patient is usually not on CPAP or BiPAP. Resident of the [facility]. ID service is following. Today's lab work has been reviewed, shows the VC of 4.9, hemoglobin of 10.1, electrolytes were within normal limits, BUN is 25 and creatinine was 0.89. On 03/31/2018 patient seen in follow-up on medical surgical floor. Resting comfortably in bed, he states last night he had coughing episodes, she could not tolerate wearing the BiPAP mask very long, currently on 2 L per nasal cannula with a pulse ox of 96%, he is afebrile. Sputum cultures showed methicillin-resistant staph aureus, urine culture and blood cultures have been negative, patient remains on vancomycin, Levaquin and Zosyn. Lung sounds are improving, a few scattered rales, no wheezing. No fever or chills, today's labs have been reviewed. Objective - Vital Signs Vital signs: Vital Signs Temp 98.9 F 03/31/18 07:00 Pulse 64 03/31/18 11:58 Resp 12 03/31/18 07:00 BP 154/74 03/31/18 07:00 Pulse Ox 96 03/31/18 07:00 Intake & Output 03/30/18 03/31/18 03/31/18 18:59 06:59 18:59 Intake Total 1500 800 Output Total 400 1600 Balance 1100 -800 Intake: IV 800 Sodium Chloride 0.9% 1, 800 000 ml @ 100 mls/hr IV . Q10H [facility] Rx#:[id number] Intake, IV Titration 700 Amount Piperacillin-Tazobactam 3 100 .375 gm In Sodium Chloride 0.9% 100 ml @ 25 mls/hr IVPB Q8H [facility] Rx#: [id number] Sodium Chloride 0.9% 1, 600 000 ml @ 100 mls/hr IV . Q10H [facility] Rx#:[id number] Oral 800 Output: Urine 1600 Stool 400 Other: Voiding Method Indwelling Catheter Self-Catheterization Indwelling Catheter - Exam Obese, the patient is currently not having any significant distress and is calm and comfortable. Head exam was generally normal. There was no scleral icterus or corneal arcus. Mucous membranes were moist. Neck was supple and without jugular venous distension, thyromegaly, or carotid bruits. Carotids were easily palpable bilaterally. There was no adenopathy. The patient has significant crowding of the posterior oropharynx and a Mallampati class IV Lungs sounds are positive for a few scattered rales Cardiac exam revealed the PMI to be normally situated and sized. The rhythm was regular and no extrasystoles were noted during several minutes of auscultation. The first and second heart sounds were normal and physiologic splitting of the second heart sound was noted. There were no murmurs, rubs, clicks, or gallops. Abdomen is soft obese and nontender. No direct tenderness. No rebound tenderness. No guarding. Bowel sounds are hypoactive at the present. Extremities revealed +1 pitting edema there is no cyanosis or clubbing. Pulses are present lower extremity is bilaterally. Neurologic the patient is awake and alert and he has profound weakness in lower extremities and he is unable to ambulate and this is a chronic problem. Otherwise his neurologic exam is nonfocal. Examination of the skin revealed no evidence of significant rashes, suspicious appearing nevi or other concerning lesions. - Labs CBC & Chem 7: 03/31/18 08:36 03/31/18 08:36 Labs: Abnormal Lab Results - Last 24 Hours (Table) 03/30/18 03/30/18 03/31/18 Range/Units 17:02 21:06 07:04 RBC (4.30-5.90) m/uL Hgb (13.0-17.5) gm/dL Hct (39.0-53.0) % MCHC (31.0-37.0) g/dL RDW (11.5-15.5) % Lymphocytes # (1.0-4.8) k/uL Glucose (74-99) mg/dL POC Glucose (mg/dL) 204 H 199 H 204 H (75-99) mg/dL Calcium (8.4-10.2) mg/dL Magnesium (1.6-2.3) mg/dL 03/31/18 03/31/18 03/31/18 Range/Units 08:36 08:36 11:47 RBC 3.65 L (4.30-5.90) m/uL Hgb 9.8 L (13.0-17.5) gm/dL Hct 32.2 L (39.0-53.0) % MCHC 30.3 L (31.0-37.0) g/dL RDW 18.5 H (11.5-15.5) % Lymphocytes # 0.8 L (1.0-4.8) k/uL Glucose 249 H (74-99) mg/dL POC Glucose (mg/dL) 230 H (75-99) mg/dL Calcium 8.0 L (8.4-10.2) mg/dL Magnesium 1.3 L (1.6-2.3) mg/dL Microbiology - Last 24 Hours (Table) 03/27/18 19:00 Blood Culture - Preliminary Blood No Growth after 72 hours 03/27/18 23:45 Gram Stain - Final Sputum Sputum Culture - Final Methicillin resist S. aureus Anika albicans Assessment and Plan Plan: Assessment: 1 acute MRSA pneumonia, sputum cultures were positive for MRSA 2 suspect sepsis based on the fact that the patient was hypotensive on presentation, responded mostly to fluid boluses. 3 acute exacerbation of COPD 4 type 2 diabetes 5 benign essential hypertension 6 chronic kidney disease stage III 7 history of recent bilateral pneumonia 8 mixed hyperlipidemia 9 previous history of deep vein thromboses and pulmonary embolism 10 history of gout 11 underlying coronary artery disease Plan: Continue antibiotic coverage per ID service recommendations, sputum cultures were positive for MRSA. Clinically patient states he is about the same, but sounds better on today's exam, no wheezing, some scattered rales. Continue the bronchodilators, continue to follow, BiPAP support as needed I performed a history & physical examination of the patient and discussed their management with my nurse practitioner, Kim Patel. I reviewed the nurse practitioner's note and agree with the documented findings and plan of care. Lung sounds are positive for some scattered rales. The findings and the impression was discussed with the patient. I attest to the documentation by the nurse practitioner. Time with Patient: Less than 30
[2018-03-31 15:19] VITALS: BMI 50.5
[2018-03-31 17:23] LABS: Glucose,Whole Blood 174 mg/dL (75-99)
[2018-03-31] MEDS ORDERED: RX INFO: IV CONTRAST WAS GIVEN 1 EACH MISC MISCELLANE PRN (19:16)
[2018-03-31] MEDS: LEVOFLOXACIN 500 MG TAB PO SCH (19:37)
[2018-03-31] MEDS ORDERED: NITROGLYCERIN SL TABS 0.4 MG TAB SUBLINGUAL PRN (20:04)
[2018-03-31 21:00] LABS: Glucose,Whole Blood 167 mg/dL (75-99)
[2018-03-31] MEDS: ATORVASTATIN 20 MG TAB PO SCH (22:11)
[2018-03-31] MEDS: MELATONIN 5 MG TABLET PO SCH (22:11)
[2018-03-31] MEDS ORDERED: Magnesium Replacement Protocol 1 EACH MISC MISCELLANE PRN (22:15)
[2018-03-31] MEDS ORDERED: Potassium Replacement Protocol 1 EACH MISC MISCELLANE PRN (22:16)
[2018-03-31] MEDS ORDERED: POTASSIUM CHLORIDE ER 20 MEQ TAB.ER PO SCH (23:00)
[2018-03-31] MEDS: MAGNESIUM SULFATE-D5W PMX 1 GM in DEXTROSE/WATER 1 100ML.BAG IVPB SCH (23:24)
--- NOTE | 2018-03-31 23:48 | PN ---
PROGRESS NOTE DATE OF SERVICE: 03/31/2018 This 83-year-old gentleman who was admitted with multiple medical problems, including bibasilar pneumonia with possible sepsis, is slightly improving at this time. No chest pain. No palpitations. No fever. Dr. Stevenson is following the patient closely. Sputum culture showed MRSA and Anika albicans. PHYSICAL EXAMINATION: Alert and oriented x3. Pulse 82, blood pressure 119/62, respiration 18, temperature 98.3, pulse ox 94% on room air. HEENT: Conjunctivae normal. NECK: No jugular venous distention. CARDIOVASCULAR SYSTEM: S1, S2 muffled. RESPIRATORY SYSTEM: Breath sounds diminished at the bases. A few scattered rhonchi and crackles. ABDOMEN: Soft, non-tender. LEGS: No edema. No swelling. NERVOUS SYSTEM: No focal deficit. LABS: WBC 4.8, hemoglobin 9.8. Otherwise, magnesium 1.3. ASSESSMENT: 1. Acute bibasilar pneumonia, possibly secondary to methicillin-resistant Staphylococcus aeruginosa as well as Anika albicans with severe sepsis and septic shock with acute hypoxic respiratory failure, present on admission. 2. Change in mental status, acute metabolic encephalopathy, acute on chronic. 3. Gait dysfunction. 4. Congestive heart failure, acute exacerbation, with acute on chronic diastolic dysfunction, ejection fraction 60% to 65%. 5. Chronic obstructive pulmonary disease, acute exacerbation. 6. Diabetes mellitus, type 2. 7. History of deep vein thrombosis. 8. Hypertension. 9. Hyperlipidemia. 10.History of pulmonary embolism. 11.History of hypomagnesemia. 12.Hypokalemia. 13.History of previous deep venous thrombosis, pulmonary embolism. 14.History of recent bilateral pneumonia. 15.History of iron deficiency anemia. 16.History of coronary artery disease. 17.History of gout. 18.History of chronic constipation. 19.History of chronic kidney disease, stage III. 20.Depression. 21.Glaucoma. 22.History of degenerative joint disease. 23.History of morbid obesity with body mass index 50.2. 24.History of methicillin-resistant Staphylococcus aeruginosa in the sputum. 25.NO CODE, NO CPR, NO VENT. RECOMMENDATIONS AND DISCUSSION: I recommend to continue current medication, continue symptomatic treatment. Continue with the broad-spectrum IV antibiotics. PT/OT evaluation, possible ECF rehab. Closely follow with Dr. Stevenson. I would also recommend infectious disease evaluation. Guarded prognosis. Further recommendations to follow. Closely follow with Pulmonary and Infectious Disease. Further recommendations to follow. MMODL / IJN: [id number] /
[2018-04-01] MEDS: VANCOMYCIN 2,000 MG in SODIUM CHLORIDE 0.9% 500 ML 500 ML IVPB SCH ×2 (00:36→15:19)
[2018-04-01] MEDS: MAGNESIUM SULFATE-D5W PMX 1 GM in DEXTROSE/WATER 1 100ML.BAG IVPB SCH ×2 (00:36→04:31)
[2018-04-01] MEDS: METOCLOPRAMIDE 5 MG/ML 2 ML VIAL IVP PRN ×3 (01:07→23:18)
[2018-04-01] MEDS: HEPARIN SODIUM,PORCINE 5,000 UNIT/ML 1 ML VIAL SQ SCH ×4 (01:07→23:18)
[2018-04-01] MEDS: PIPERACILLIN-TAZOBACTAM 3.375 GM in SODIUM CHLORIDE 0.9% 100 ML IVPB SCH ×3 (05:34→19:45)
[2018-04-01 07:38] LABS: Glucose,Whole Blood 224 mg/dL (75-99)
[2018-04-01 08:05] LABS: Anisocytosis Slight; Basophils % (A) 0 %; Eosinophils # (A) 0.3 k/uL (0-0.7); Eosinophils % (A) 6 %; HCT 32.3 % (39.0-53.0); HGB 10.1 gm/dL (13.0-17.5); Hypochromasia Slight; Lymphocytes # (A) 0.9 k/uL (1.0-4.8); Lymphocytes % (A) 17 %; MCH 27.2 pg (25.0-35.0); MCHC 31.4 g/dL (31.0-37.0); MCV 86.7 fL (80.0-100.0); Mean Platelet Volume 7.1; Monocytes # (A) 0.4 k/uL (0-1.0); Monocytes % (A) 7 %; Neutrophils # (A) 3.6 k/uL (1.3-7.7); Neutrophils % (A) 68 %; Platelet Count 210 k/uL (150-450); RBC 3.73 m/uL (4.30-5.90); RDW 18.5 % (11.5-15.5); WBC 5.4 k/uL (3.8-10.6)
[2018-04-01 08:25] LABS: Anion Gap 7 mmol/L; Blood Urea Nitrogen 16 mg/dL (9-20); Calcium 8.1 mg/dL (8.4-10.2); Carbon Dioxide 28 mmol/L (22-30); Chloride 104 mmol/L (98-107); Glucose 198 mg/dL (74-99); Magnesium 1.8 mg/dL (1.6-2.3); Phosphorus 2.8 mg/dL (2.5-4.5); Potassium 3.4 mmol/L (3.5-5.1); Sodium 139 mmol/L (137-145)
[2018-04-01] MEDS: INSULIN ASPART 100 UNIT/ML 1 ML 10 ML VIAL SQ SCH ×3 (09:09→17:17)
[2018-04-01] MEDS: PANTOPRAZOLE 40 MG/10 ML VIAL IV SCH (09:09)
[2018-04-01] MEDS: FUROSEMIDE 40 MG TAB PO SCH (09:10)
[2018-04-01] MEDS: ASPIRIN 81 MG PO SCH (09:10)
[2018-04-01] MEDS: MONTELUKAST 10 MG TAB PO SCH (09:10)
[2018-04-01] MEDS: FERROUS SULFATE 325 MG TAB PO SCH (09:10)
[2018-04-01] MEDS: TAMSULOSIN 0.4 MG CAP.ER.24H PO SCH (09:10)
[2018-04-01] MEDS: ARTIFICIAL TEARS-HYPROMELLOSE DROPS 15 ML BTL BOTH EYES SCH ×2 (09:11→20:56)
[2018-04-01] MEDS: ACETAMINOPHEN TAB 325 MG TAB PO SCH ×3 (09:11→20:57)
[2018-04-01] MEDS: BUDESONIDE 0.5 MG/2 ML NEBU INHALATION SCH ×2 (09:23→19:34)
[2018-04-01] MEDS: IPRATROPIUM-ALBUTEROL 3 ML NEB INHALATION SCH ×4 (09:23→19:34)
[2018-04-01 11:39] LABS: Glucose,Whole Blood 201 mg/dL (75-99)
--- NOTE | 2018-04-01 13:18 | CT ---
EXAMINATION TYPE: CT chest w con DATE OF EXAM: 04/01/2018 COMPARISON: 12/30/2017 CT, chest x-ray 03/29/2018 HISTORY: wide mediastinum. History of abdominal aortic aneurysm. CT DLP: 1089.6 mGycm, Automated exposure control for dose reduction was used. CONTRAST: Performed injected with 100 mL of Isovue 300. TECHNIQUE: Axial images were obtained at 5 mm thick sections. Reconstructed images are reviewed on [employer] computer in the coronal plane. FINDINGS: Right lobe thyroid measuring somewhat prominent contains some internal calcification. There is compressive atelectasis within the dependent portions of the lungs bilaterally. Some very mi nimal pleural effusion may be present at the right posterior lung base No enlarged mediastinal or hilar adenopathy is evident. The ascending aorta diameter at the level o f the main pulmonary artery is 4.1 cm. The main pulmonary artery diameter at the bifurcation is 2.8 cm. These are stable from comparison CT Limited CT sections are obtained through the upper abdomen. Abdomen is essentially unremarkable. Supe rior portion of an aortic graft may be partially visualized. IMPRESSIONS: 1. Ascending thoracic aortic aneurysm, stable from comparison. 2. Mild bibasilar infiltrates, likely compressive atelectasis. Some very minimal pleural effusion is present on the right
--- NOTE | 2018-04-01 14:42 | P.CRDCN ---
History of Present Illness History of present illness: This is a pleasant 83-year-old male past medical history significant for COPD, diabetes mellitus, hypertension, peripheral vascular disease, hard of hearing, previous history of DVT and PE and morbid obesity. The patient denies any coronary artery disease and states he has received multiple stents in his aorta, femoral arteries and lower extremities. He was transferred from [facility] secondary to shortness of breath and hypotension. He was initially in the ICU and has since been transferred to the medical floor. Sputum cultures are positive for MRSA, ID is following and he is maintained on Vancomycin, levaquin and zosyn. Apparently last night he was complaining of some chest discomfort when he would cough or take a deep breath. He is seen and examined resting comfortably in bed. He continues to feel a discomfort in his chest when he coughs or takes a deep breath. There is also tenderness on palpitation noted in the mid-sternal region. He denies palpitations, dizziness, nausea, vomiting or diaphoresis associated with the discomfort. He states his breathing has improved since admission but still feels mildly short of breath. He is wanting to go home. He denies PND or orhopnea. Echocardiogram obtained reveals preserved left ventricular systolic function with ejection fraction 60-65%, mild aortic stenosis with a mean gradient of 9 mmHg, moderate pulmonary hypertension with an RVSP of 48 mmHg and mild tricuspid regurgitation. EKG on admission reveals sinus mechanism with first degree A-V block and rightward axis deviation. Nonspecific ST abnormalities noted. CT chest reveals evidence of ascending thoracic aortic aneurysm, 4.1 cm. Mild bibasilar infiltrates, likely compressive atelectasis and a minimal right pleural effusion. Laboratory data reviewed, WBC 5.4, hemoglobin 10.1, platelets 210, sodium 139, potassium 3.4, creatinine 0.77, magnesium 1.8, cardiac enzymes negative 3, NT proBNP on admission 1100. Currently maintained on aspirin 81 mg daily, atorvastatin 20 mg daily, Lasix 40 mg daily, and potassium supplementation. Losartan has been held secondary to hypotension on admission. At the time of my exam: CONSTITUTIONAL: Denies fever. Denies chills. EYES: Denies blurred vision. Denies vision changes. Denies eye pain. EARS, NOSE, MOUTH & THROAT: Denies headache. Denies sore throat. Denies ear pain. CARDIOVASCULAR: Complains of reproducible pleuritic chest pain. Denies shortness of breath. Denies orthopnea. Denies PND. Denies palpitations. RESPIRATORY: Complains of cough. GASTROINTESTINAL: Denies abdominal pain. Denies diarrhea. Denies constipation. Denies nausea. Denies vomiting. MUSCULOSKELETAL: Denies myalgias. INTEGUMENTARY: Denies pruitis. Denies rash. NEUROLOGIC: Denies numbness. Denies tingling. Denies weakness. PSYCHIATRIC: Denies anxiety. Denies depression. ENDOCRINE: Denies fatigue. Denies weight change. Denies polydipsia. Denies polyurina. GENITOURINARY: Denies burning, hematuria or urgency with micturation. HEMATOLOGIC: Denies history of anemia. Denies bleeding. Blood pressure 151/74 heart rate 76 afebrile maintaining oxygen saturation on room air GENERAL: This is a 83-year-old male in no apparent distress at the time of my examination. Morbidly obese. HEENT: Head is atraumatic, normocephalic. Pupils are equal, round. Sclerae anicteric. Conjunctivae are clear. Mucous membranes of the mouth are moist. Neck is supple. There is no jugular venous distention. No carotid bruit is heard. LUNGS: Clear to auscultation no wheezes, rales or rhonchi. No chest wall tenderness is noted on palpation or with deep breathing. Diminished bilaterally. HEART: Regular rate and rhythm with faint systolic ejection murmur, no rubs or gallops. S1 and S2 heard. ABDOMEN: Soft, nontender. Bowel sounds are heard. No organomegaly noted. EXTREMITIES: 1+ bilateral lower extremity edema, may be secondary to body habitus. No calf tenderness noted. VASCULAR: Radial and dorsalis pedis pulses palpated, no evidence of clubbing. NEUROLOGIC: Patient is awake, alert and oriented x3. ASSESSMENT Pleuritic chest pain. An acute event has been ruled out. MRSA pneumonia Sepsis on admission Acute exacerbation of COPD Hypertension Diabetes mellitus Dyslipidemia History of aortic aneurysm status post multiple stent Placements at [facility], exact details unknown records unavailable at this time. Hypomagnesemia, resolved Hypokalemia, being replaced. PLAN An acute coronary event has been ruled out. Repeat EKG. Resume losartan at 25 mg daily, can increase to home dose of 50 if tolerates. Pain related to musckuloskeletal strain secondary to coughing. No further cardiac work-up needed at this time. Thank you kindly for this consultation. Nurse Practitioner note has been reviewed, I agree with a documented findings and plan of care. Patient was seen and examined. 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 Patient also is known to have abdominal aortic aneurysm-daughter not sure of size.. 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 with a wart to biiliac endovascular stent graft and then aneurysm measuring 10 x 9 cm in size and right iliac endovascular stent and the right common iliac artery aneurysm in addition to a left common iliac artery aneurysm measuring 3.1 cm and 3.0 cm respectively}information in brackets was charted previous admit.At time of this admission on 12-29-17 mortgage underwriter was unable to verify the bracketed information w/pt and daughter History of Any Multi-Drug Resistant Organisms: MRSA Date of last positivie culture/infection: 03/27/18 MDRO Source:: SPUTUM MRSA Past Surgical History: Appendectomy, Hernia Repair, Tonsillectomy Additional Past Surgical History / Comment(s): cataract, hydrocele, :9 stents in legs/ 2 aortic stents", rt ext iliac stent 05/29/16 at [place] Past Anesthesia/Blood Transfusion Reactions: No Reported Reaction Past Psychological History: No Psychological Hx Reported Smoking Status: Former smoker Past Alcohol Use History: None Reported Past Drug Use History: None Reported - Past Family History Mother Family Medical History: Cancer Additional Family Medical History / Comment(s): open heart surgery, CA ovarian and liver, lyme disease Medications and Allergies Home Medications Medication Instructions Recorded Confirmed Type Ferrous Sulfate [Iron (65 MG 325 mg PO DAILY 05/29/16 03/27/18 History Elemental)] Aspirin 81 mg PO DAILY 08/20/16 03/27/18 History Atorvastatin [Lipitor] 20 mg PO HS 08/20/16 03/27/18 History Budesonide [Pulmicort] 0.5 mg INHALATION RT-BID 08/20/16 03/27/18 History Ipratropium-Albuterol Nebulize 3 ml INHALATION RT-TID 08/20/16 03/27/18 History [Duoneb 0.5 mg-3 mg/3 ml Soln] Losartan [Cozaar] 50 mg PO DAILY 08/20/16 03/27/18 History Tamsulosin HCl [Flomax] 0.4 mg PO DAILY 08/20/16 03/27/18 History Acetaminophen Tab [Tylenol] 650 mg PO TID 12/29/17 03/27/18 History Furosemide [Lasix] 40 mg PO DAILY 12/29/17 03/27/18 History Hydrocortisone Pr Cream 1 applic RECTAL TID PRN 12/29/17 03/27/18 History [Proctosol-Hc 2.5%] Magnesium Hydroxide [Milk of 2,400 mg PO DAILY PRN 12/29/17 03/27/18 History Magnesia] Melatonin 5 mg PO HS 12/29/17 03/27/18 History Montelukast [Singulair] 10 mg PO DAILY 12/29/17 03/27/18 History Tears Naturale Free Solution 1 drop BOTH EYES BID 12/29/17 03/27/18 History fentaNYL 100MCG/HR PATCH 1 patch TRANSDERM Q72H 12/29/17 03/27/18 History [Duragesic 100MCG/HR] Insulin Aspart [NovoLOG 10 unit SQ AC-TID vial 01/06/18 03/27/18 Rx (formulary)] Alcohol Antiseptic Pads [Alcohol 1 pad TOPICAL BID@0700,199903/27/18 03/27/18 History Swabs] Amino Acids/Protein Hydrolys 30 ml PO BID 03/27/18 03/27/18 History [Pro-Stat Supplement] Bisacodyl 10 mg PO Q48H PRN 03/27/18 03/27/18 History Mineral Oil [Fleet Mineral Oil] 113 ml RECTAL Q72H PRN 03/27/18 03/27/18 History Allergies Allergy/AdvReac Type Severity Reaction Status Date / Time No Known Allergies Allergy Verified 03/27/18 18:19 Physical Exam Vitals: Vital Signs Temp Pulse Pulse Resp BP Pulse Ox 04/01/18 09:43 76 04/01/18 09:23 76 04/01/18 07:00 97.2 F L 67 16 151/74 96 03/31/18 23:40 98.2 F 57 L 16 154/67 96 03/31/18 19:42 98.3 F 82 18 119/62 95 03/31/18 19:28 81 03/31/18 19:19 80 03/31/18 16:27 76 03/31/18 16:14 76 03/31/18 15:00 98.1 F 70 12 142/69 91 L Intake and Output 03/31/18 04/01/18 04/01/18 22:59 06:59 14:59 Intake Total 1450 900 450 Output Total 1000 500 Balance 450 900 -50 Intake: IV 800 Sodium Chloride 0.9% 1, 800 000 ml @ 100 mls/hr IV . Q10H [facility] Rx#:[id number] Intake, IV Titration 900 Amount Magnesium Sulfate-D5w Pmx 300 1 gm In Dextrose/Water 1 100ml.bag @ 100 mls/hr IVPB Q1H [facility] Rx#: [id number] Piperacillin-Tazobactam 3 100 .375 gm In Sodium Chloride 0.9% 100 ml @ 25 mls/hr IVPB Q8H [facility] Rx#: [id number] Vancomycin 2,000 mg In 500 Sodium Chloride 0.9% 500 ml 500 ml @ 167 mls/hr IVPB Q16H [facility] Rx#: [id number] Oral 450 450 Other 200 Output: Urine 1000 500 Other: Voiding Method Indwelling Catheter # Voids 3 # Bowel Movements 1 Weight 183.3 kg Results 04/01/18 06:58 04/01/18 06:58 Cardiac Enzymes 03/31/18 04/01/18 04/01/18 Range/Units 20:50 01:21 06:58 Troponin I 0.013 0.013 0.017 (0.000-0.034) ng/mL CBC 04/01/18 Range/Units 06:58 WBC 5.4 (3.8-10.6) k/uL RBC 3.73 L (4.30-5.90) m/uL Hgb 10.1 L (13.0-17.5) gm/dL Hct 32.3 L (39.0-53.0) % Plt Count 210 (150-450) k/uL Comprehensive Metabolic Panel 04/01/18 Range/Units 06:58 Sodium 139 (137-145) mmol/L Potassium 3.4 L (3.5-5.1) mmol/L Chloride 104 (98-107) mmol/L Carbon Dioxide 28 (22-30) mmol/L BUN 16 (9-20) mg/dL Creatinine 0.77 (0.66-1.25) mg/dL Glucose 198 H (74-99) mg/dL Calcium 8.1 L (8.4-10.2) mg/dL Current Medications Generic Name Dose Route Start Last Admin Trade Name Freq PRN Reason Stop Dose Admin Acetaminophen 650 mg 03/28/18 09:00 04/01/18 09:11 Tylenol Tab PO 650 mg TID [facility] Administration Albuterol/Ipratropium 3 ml 03/27/18 20:00 04/01/18 12:54 Duoneb 0.5 Mg-3 Mg/3 Ml Soln INHALATION Not Given RT-QID [facility] Artificial Tears 1 drops 03/28/18 09:00 04/01/18 09:11 Artificial Tear Drops BOTH EYES 1 drops BID [facility] Administration Aspirin 81 mg 03/28/18 09:00 04/01/18 09:10 Aspirin PO 81 mg DAILY [facility] Administration Atorvastatin Calcium 20 mg 03/28/18 21:00 03/31/18 22:11 Lipitor PO 20 mg HS [facility] Administration Bisacodyl 10 mg 03/28/18 09:00 Dulcolax PO Q48H PRN Constipation Budesonide 0.5 mg 03/28/18 08:00 04/01/18 09:23 Pulmicort INHALATION 0.5 mg RT-BID [facility] Administration Ferrous Sulfate 325 mg 03/28/18 09:00 04/01/18 09:10 Feosol PO 325 mg DAILY [facility] Administration Furosemide 40 mg 03/30/18 09:00 04/01/18 09:10 Lasix PO 40 mg DAILY [facility] Administration Guaifenesin 200 mg 03/30/18 02:23 03/30/18 09:30 Robitussin PO 200 mg Q6H PRN Administration Cough Heparin Sodium (Porcine) 5,000 unit 03/28/18 08:00 04/01/18 09:09 Heparin SQ 5,000 unit Q8HR [facility] Administration Hydrocortisone 1 applic 03/28/18 09:00 Proctosol-Hc 2.5% RECTAL TID PRN INFLAMED HERORRHOIDS Piperacillin Sod/Tazobactam 100 mls @ 25 mls/hr 03/28/18 04:00 04/01/18 13:05 Sod 3.375 gm/ Sodium Chloride IVPB 25 mls/hr Q8H [facility] Administration Vancomycin HCl 2,000 mg/ 500 mls @ 167 mls/hr 03/31/18 08:00 04/01/18 00:36 Sodium Chloride IVPB 167 mls/hr Q16H [facility] Administration Insulin Aspart 10 unit 03/28/18 07:30 04/01/18 13:05 Novolog SQ 10 unit AC-TID [facility] Administration Levofloxacin 500 mg 03/30/18 19:00 03/31/18 19:37 Levaquin PO 500 mg Q24H [facility] Administration Magnesium Hydroxide 2,400 mg 03/28/18 09:00 Milk Of Magnesia PO DAILY PRN Constipation Melatonin 5 mg 03/28/18 21:00 03/31/18 22:11 Melatonin PO 5 mg HS [facility] Administration Metoclopramide HCl 5 mg 04/01/18 00:40 04/01/18 01:07 Reglan IVP 5 mg Q6HR PRN Administration Nausea And Vomiting Mineral Oil 113 ml 03/28/18 09:00 Fleet Mineral Oil RECTAL Q72H PRN Constipation Miscellaneous Information 1 each 03/27/18 18:34 Pneumonia Protocol Utilized PO ONCE PRN Per Protocol Miscellaneous Information 1 each 03/31/18 19:16 Rx Info: Iv Contrast Was Given MISCELLANE 04/02/18 19:17 DAILY PRN Per Protocol Miscellaneous Information 1 each 03/31/18 22:15 Magnesium Per Protocol MISCELLANE DAILY PRN Per Protocol Protocol Miscellaneous Information 1 each 03/31/18 22:16 Potassium Per Protocol MISCELLANE DAILY PRN Per Protocol Protocol Montelukast Sodium 10 mg 03/28/18 09:00 04/01/18 09:10 Singulair PO 10 mg DAILY [facility] Administration Naloxone HCl 0.2 mg 03/28/18 01:21 Narcan IV Q2M PRN Opioid Reversal Nitroglycerin 0.4 mg 03/31/18 20:04 03/31/18 20:22 Nitrostat SUBLINGUAL 0.4 mg Q5M PRN Administration Chest Pain Pantoprazole Sodium 40 mg 03/28/18 09:00 04/01/18 09:09 Protonix IV 40 mg DAILY [facility] Administration Tamsulosin HCl 0.4 mg 03/28/18 09:00 04/01/18 09:10 Flomax PO 0.4 mg DAILY [facility] Administration Intake and Output 03/31/18 04/01/18 04/01/18 22:59 06:59 14:59 Intake Total 1450 900 450 Output Total 1000 500 Balance 450 900 -50 Intake: IV 800 Sodium Chloride 0.9% 1, 800 000 ml @ 100 mls/hr IV . Q10H [facility] Rx#:[id number] Intake, IV Titration 900 Amount Magnesium Sulfate-D5w Pmx 300 1 gm In Dextrose/Water 1 100ml.bag @ 100 mls/hr IVPB Q1H [facility] Rx#: [id number] Piperacillin-Tazobactam 3 100 .375 gm In Sodium Chloride 0.9% 100 ml @ 25 mls/hr IVPB Q8H [facility] Rx#: [id number] Vancomycin 2,000 mg In 500 Sodium Chloride 0.9% 500 ml 500 ml @ 167 mls/hr IVPB Q16H [facility] Rx#: [id number] Oral 450 450 Other 200 Output: Urine 1000 500 Other: Voiding Method Indwelling Catheter # Voids 3 # Bowel Movements 1 Weight 183.3 kg 04/01/18 06:58 04/01/18 06:58
[2018-04-01] MEDS: LOSARTAN 25 MG TAB PO SCH (15:19)
--- NOTE | 2018-04-01 16:29 | P.PN ---
Subjective Progress Note Date: 04/01/18 Principal diagnosis: Acute sepsis and left lower lobe pneumonia, community-acquired or possibly healthcare acquired secondary to MRSA This is an 83-year-old white male with history of multiple medical problems including severe COPD, type 2 diabetes, severe hearing disorder, hypertension, previous history of deep vein thromboses and pulmonary embolism. Patient was seen yesterday at [facility] complaining of shortness of breath, cough, wheezing, and apparently upon arrival to the hospital he was noted to be hypotensive. Patient was given IV fluids boluses, about 4 L. Started on broad- spectrum antibiotics for presumptive pneumonia, transferred to [facility], seen in the ER, chest x-ray showed left basilar reticular opacity highly suspicious of pneumonia. Patient was admitted, placed on broad- spectrum antibiotics, did not require any pressors, and this consult was initiated. CBC showed WBC count of 4.90 glucose was 10.0. His ABG showed a pO2 of 59 pCO2 of 48 and pH of 7.37 and this was on 32% FiO2. Basic metabolic profile was normal, bicarb was normal. BUN was 52 creatinine 1.19. Blood sugar was elevated at 249. Lactic acid was 1.8. ProBNP level was borderline elevated. Magnesium level was 1.5. Patient is feeling better since he was admitted to the ICU, he is hemodynamically stable, he is presently afebrile, denies any headache, no blurred vision no dizziness, he has some cough and shortness of breath. Denied any chest pain no nausea no vomiting no abdominal pain no melena no hematemesis no dysuria and no frequency no urgency. Patient was started by the admitting physician on bronchodilators, he is also on antibiotics in the form of Zosyn, vancomycin, and Levaquin. Cultures are pending. And that his urine cultures. Cultures and blood cultures. Patient was reevaluated today on 03/29/2018, patient remains in the ICU, however he is hemodynamically stable. Denies any shortness of breath, no cough, no wheezing. No chest pain, no fever, no chills, no hemoptysis. Is not requiring any pressors. His CBC is relatively normal WBC count is 5 hemoglobin is 9.8 electrolytes are normal except for low potassium of 3.4. BUN is 41 creatinine is 0.99. Blood sugar is 219. Magnesium is a bit low at 1.4. Blood cultures remain negative. Sputum cultures are pending. Patient was seen by Dr. Dangelo on consultation, and he was concerned about the possibility of MRSA pneumonia since the patient had previous history of MRSA pneumonia. And he kept the patient on vancomycin and Zosyn. On 03/30/2018 patient seen in follow-up on medical surgical floor. Lung sounds are positive for diffuse wheezes, patient still having some coughing spells. Current antibiotic coverage includes vancomycin and Zosyn, sputum cultures are positive for presumptive staph. Final cultures pending, currently on 2 L per nasal cannula his pulse ox is 97%, afebrile, hemodynamically stable. Blood and urine cultures were negative. He did have to wear BiPAP last night. Patient is usually not on CPAP or BiPAP. Resident of the [facility]. ID service is following. Today's lab work has been reviewed, shows the VC of 4.9, hemoglobin of 10.1, electrolytes were within normal limits, BUN is 25 and creatinine was 0.89. On 03/31/2018 patient seen in follow-up on medical surgical floor. Resting comfortably in bed, he states last night he had coughing episodes, she could not tolerate wearing the BiPAP mask very long, currently on 2 L per nasal cannula with a pulse ox of 96%, he is afebrile. Sputum cultures showed methicillin-resistant staph aureus, urine culture and blood cultures have been negative, patient remains on vancomycin, Levaquin and Zosyn. Lung sounds are improving, a few scattered rales, no wheezing. No fever or chills, today's labs have been reviewed. The patient is seen today 04/01/2017 in follow-up on the regular medical floor. He is awake and alert in no acute distress. He denies any worsening shortness of breath, cough or congestion. Sputum cultures were positive for MRSA. White count 5.4. Hemoglobin 10.1. Creatinine 0.77. He remains on vancomycin, Zosyn, Levaquin Objective - Vital Signs Vital signs: Vital Signs Temp 98.2 F 04/01/18 14:40 Pulse 68 04/01/18 16:07 Resp 20 04/01/18 14:40 BP 158/72 04/01/18 14:40 Pulse Ox 97 04/01/18 14:40 Intake & Output 03/31/18 04/01/18 04/01/18 18:59 06:59 18:59 Intake Total 1450 900 450 Output Total 1300 1000 500 Balance 150 -100 -50 Weight 183.3 kg Intake: IV 800 Sodium Chloride 0.9% 1, 800 000 ml @ 100 mls/hr IV . Q10H [facility] Rx#:[id number] Intake, IV Titration 900 Amount Magnesium Sulfate-D5w Pmx 300 1 gm In Dextrose/Water 1 100ml.bag @ 100 mls/hr IVPB Q1H [facility] Rx#: [id number] Piperacillin-Tazobactam 3 100 .375 gm In Sodium Chloride 0.9% 100 ml @ 25 mls/hr IVPB Q8H [facility] Rx#: [id number] Vancomycin 2,000 mg In 500 Sodium Chloride 0.9% 500 ml 500 ml @ 167 mls/hr IVPB Q16H [facility] Rx#: [id number] Oral 450 450 Other 200 Output: Urine 1300 1000 500 Other: Voiding Method Indwelling Catheter Indwelling Catheter # Voids 3 # Bowel Movements 1 - Exam Obese, the patient is currently not having any significant distress and is calm and comfortable. Head exam was generally normal. There was no scleral icterus or corneal arcus. Mucous membranes were moist. Neck was supple and without jugular venous distension, thyromegaly, or carotid bruits. Carotids were easily palpable bilaterally. There was no adenopathy. The patient has significant crowding of the posterior oropharynx and a Mallampati class IV Lungs sounds are positive for a few scattered rales Cardiac exam revealed the PMI to be normally situated and sized. The rhythm was regular and no extrasystoles were noted during several minutes of auscultation. The first and second heart sounds were normal and physiologic splitting of the second heart sound was noted. There were no murmurs, rubs, clicks, or gallops. Abdomen is soft obese and nontender. No direct tenderness. No rebound tenderness. No guarding. Bowel sounds are hypoactive at the present. Extremities revealed +1 pitting edema there is no cyanosis or clubbing. Pulses are present lower extremity is bilaterally. Neurologic the patient is awake and alert and he has profound weakness in lower extremities and he is unable to ambulate and this is a chronic problem. Otherwise his neurologic exam is nonfocal. Examination of the skin revealed no evidence of significant rashes, suspicious appearing nevi or other concerning lesions. - Labs CBC & Chem 7: 04/01/18 06:58 04/01/18 06:58 Labs: Abnormal Lab Results - Last 24 Hours (Table) 03/31/18 03/31/18 04/01/18 Range/Units 17:21 20:48 06:58 RBC 3.73 L (4.30-5.90) m/uL Hgb 10.1 L (13.0-17.5) gm/dL Hct 32.3 L (39.0-53.0) % RDW 18.5 H (11.5-15.5) % Lymphocytes # 0.9 L (1.0-4.8) k/uL Potassium (3.5-5.1) mmol/L Glucose (74-99) mg/dL POC Glucose (mg/dL) 174 H 167 H (75-99) mg/dL Calcium (8.4-10.2) mg/dL 04/01/18 04/01/18 04/01/18 Range/Units 06:58 07:25 11:27 RBC (4.30-5.90) m/uL Hgb (13.0-17.5) gm/dL Hct (39.0-53.0) % RDW (11.5-15.5) % Lymphocytes # (1.0-4.8) k/uL Potassium 3.4 L (3.5-5.1) mmol/L Glucose 198 H (74-99) mg/dL POC Glucose (mg/dL) 224 H 201 H (75-99) mg/dL Calcium 8.1 L (8.4-10.2) mg/dL Microbiology - Last 24 Hours (Table) 03/27/18 19:00 Blood Culture - Preliminary Blood No Growth after 96 hours Assessment and Plan Assessment: Assessment: 1 acute MRSA pneumonia, sputum cultures were positive for MRSA 2 suspect sepsis based on the fact that the patient was hypotensive on presentation, responded mostly to fluid boluses. 3 acute exacerbation of COPD 4 type 2 diabetes 5 benign essential hypertension 6 chronic kidney disease stage III 7 history of recent bilateral pneumonia 8 mixed hyperlipidemia 9 previous history of deep vein thromboses and pulmonary embolism 10 history of gout 11 underlying coronary artery disease #[address] reveals stable descending thoracic aneurysm measuring 4.1 cm. Plan: The patient was seen and evaluated by Dr. Stevenson. Computed tomography scan and labs reviewed. Mild basilar atelectasis. Stable descending thoracic aortic aneurysm at 4.1 cm. He is currently stable from the pulmonary standpoint. The patient is asking to go back to his ECF. We'll await further instruction for antibiotics per ID. We'll continue with his current treatment plan. BiPAP as needed. I, the cosigning physician, performed a history & physical examination of the patient. Lungs sounds with crackles in the posterior bases. Maintaining good O2 saturations in the 90s on room air. I discussed the assessment and plan of care with my nurse practitioner, Zeny Richards. I attest to the above note as dictated by her.
[2018-04-01 17:18] LABS: Glucose,Whole Blood 134 mg/dL (75-99)
[2018-04-01] MEDS: LEVOFLOXACIN 500 MG TAB PO SCH (20:56)
--- NOTE | 2018-04-01 20:56 | PN ---
PROGRESS NOTE DATE OF SERVICE: 04/01/2018 This 83-year-old gentleman who was admitted with multiple medical problems including pneumonia and possible sepsis is being closely monitored. The patient on broad spectrum IV antibiotics. Multiple consultants are following the patient. Chest CT was done. The patient was also seen by Cardiology for pleuritic chest pain. The patient also had cultures showed MRSA and Anika albicans in the sputum. Patient being closely monitored at this time. PAST MEDICAL HISTORY: Reviewed. REVIEW OF SYSTEMS: CARDIOVASCULAR SYSTEM: No angina or palpitations. RESPIRATION: As mentioned earlier. GI no nausea or vomiting. : No dysuria. NERVOUS SYSTEM: No numbness or weakness. CURRENT MEDICATIONS: Reviewed and include: 1. Tylenol 650 t.i.d. p.r.n. 2. DuoNeb q.i.d. and p.r.n. 3. Aspirin 81 mg. 4. Lipitor 20 mg. 5. Dulcolax. 6. Pulmicort 1 mg b.i.d. 7. Iron sulfate 320 mg daily. 8. Lasix 40 mg. 9. Robitussin. 10.Heparin 5000 subcu q8h. 11.Proctosol cream. 12.Levaquin 500 mg p.o. daily. 13.Milk of magnesia. 14.Melatonin. 15.Fleets enema. 16.Replacement protocol. 17.Zosyn 3.375 IV q.8h. 18.Vancomycin. PHYSICAL EXAM: Patient is alert, oriented x2. Pulse 67, blood pressure 150/70, respiration 20 , temperature 98.2, pulse ox 97% on room air. HEENT: Conjunctivae normal. NECK: No jugular venous distention. RESPIRATORY: Breath sounds diminished in the bases. Scattered rhonchi and crackles. ABDOMEN is soft, nontender. LEGS are no edema, no swelling. CENTRAL NERVOUS SYSTEM: No focal deficits. LAB STUDIES: White 5.5, hemoglobin 10.1, sodium 130, potassium 3.4. ASSESSMENT: 1. Acute bibasilar pneumonia possibly secondary to MRSA as well as Anika albicans with severe sepsis, septic shock with acute hypoxic respiratory failure present on admission. 2. Change in mental status, acute metabolic encephalopathy, acute on chronic. 3. Gait dysfunction. 4. Ascending thoracic aortic aneurysm in the CT which is stable and mild bibasilar infiltrates also noted. 5. Congestive heart failure, acute exacerbation, acute on chronic diastolic dysfunction, ejection fraction 60 to 65%. 6. Chest pain, possible pleuritic. 7. Chronic obstructive pulmonary disease acute exacerbation. 8. Diabetes type 2. 9. History of deep vein thrombosis. 10.Hypertension. 11.Hyperlipidemia. 12.History of pulmonary embolus. 13.Hypomagnesemia. 14.Hypokalemia. 15.History of previous deep vein thrombosis, pulmonary embolus. 16.History of recent bilateral pneumonia. 17.History of anemia. 18.History of coronary artery disease. 19.History of chronic constipation. 20.History of chronic kidney disease stage III. 21.Depression. 22.Glaucoma. 23.History of degenerative joint disease. 24.Morbid obesity with body mass of 50.2. 25.History of Methicillin-resistant Staphylococcus aureus in the sputum. 26.NO CODE, NO CPR, NO VENT. RECOMMENDATIONS AND DISCUSSION: Recommend to continue current medications, management and symptomatic treatment. Continue with bronchodilators and antibiotics and steroids. Continue the rest of medications. Cardiology input appreciated. Follow closely with Pulmonology. A chest CT was done which showed thoracic aortic aneurysm, stable for comparison. We will continue with antibiotics. Prognosis guarded because of multiple complex medical issues. Further recommendations to follow. MMODL / IJN: [id number] / DEV
[2018-04-01] MEDS: ATORVASTATIN 20 MG TAB PO SCH (20:57)
[2018-04-01] MEDS: MELATONIN 5 MG TABLET PO SCH (20:57)
[2018-04-01 21:07] LABS: Glucose,Whole Blood 131 mg/dL (75-99)
[2018-04-02] MEDS: PIPERACILLIN-TAZOBACTAM 3.375 GM in SODIUM CHLORIDE 0.9% 100 ML IVPB SCH ×3 (03:28→20:23)
[2018-04-02 06:39] LABS: Glucose,Whole Blood 167 mg/dL (75-99)
[2018-04-02] MEDS ORDERED: VANCOMYCIN TROUGH DUE 1 EACH MISC MISCELLANE ONE ×2 (07:00→23:00)
[2018-04-02] MEDS: BUDESONIDE 0.5 MG/2 ML NEBU INHALATION SCH ×2 (08:12→20:10)
[2018-04-02] MEDS: IPRATROPIUM-ALBUTEROL 3 ML NEB INHALATION SCH ×4 (08:12→20:10)
[2018-04-02 08:51] LABS: Anion Gap 6 mmol/L; Blood Urea Nitrogen 14 mg/dL (9-20); Calcium 8.4 mg/dL (8.4-10.2); Carbon Dioxide 26 mmol/L (22-30); Chloride 105 mmol/L (98-107); Glucose 162 mg/dL (74-99); Magnesium 1.6 mg/dL (1.6-2.3); Phosphorus 3.3 mg/dL (2.5-4.5); Potassium 3.6 mmol/L (3.5-5.1); Sodium 137 mmol/L (137-145)
[2018-04-02] MEDS: VANCOMYCIN 2,000 MG in SODIUM CHLORIDE 0.9% 500 ML 500 ML IVPB SCH (08:59)
[2018-04-02 09:00] LABS: Anisocytosis Slight; Basophils % (A) 1 %; Eosinophils # (A) 0.4 k/uL (0-0.7); Eosinophils % (A) 5 %; HGB 10.4 gm/dL (13.0-17.5); Hypochromasia Slight; Lymphocytes # (A) 0.9 k/uL (1.0-4.8); Lymphocytes % (A) 13 %; MCH 27.6 pg (25.0-35.0); MCHC 31.6 g/dL (31.0-37.0); MCV 87.5 fL (80.0-100.0); Mean Platelet Volume 6.9; Monocytes # (A) 0.3 k/uL (0-1.0); Monocytes % (A) 5 %; Neutrophils # (A) 5.3 k/uL (1.3-7.7); Neutrophils % (A) 75 %; Platelet Count 228 k/uL (150-450); RBC 3.77 m/uL (4.30-5.90); RDW 18.6 % (11.5-15.5)
[2018-04-02] MEDS: INSULIN ASPART 100 UNIT/ML 1 ML 10 ML VIAL SQ SCH ×3 (09:39→17:20)
[2018-04-02] MEDS: ARTIFICIAL TEARS-HYPROMELLOSE DROPS 15 ML BTL BOTH EYES SCH ×2 (09:40→20:23)
[2018-04-02] MEDS: FUROSEMIDE 40 MG TAB PO SCH (09:40)
[2018-04-02] MEDS: HEPARIN SODIUM,PORCINE 5,000 UNIT/ML 1 ML VIAL SQ SCH ×2 (09:40→15:38)
[2018-04-02] MEDS: FERROUS SULFATE 325 MG TAB PO SCH (09:40)
[2018-04-02] MEDS: TAMSULOSIN 0.4 MG CAP.ER.24H PO SCH (09:40)
[2018-04-02] MEDS: PANTOPRAZOLE 40 MG/10 ML VIAL IV SCH (09:41)
[2018-04-02] MEDS: MONTELUKAST 10 MG TAB PO SCH (09:42)
[2018-04-02] MEDS: ASPIRIN 81 MG PO SCH (09:42)
[2018-04-02] MEDS: ACETAMINOPHEN TAB 325 MG TAB PO SCH ×3 (09:42→23:37)
[2018-04-02] MEDS: LOSARTAN 25 MG TAB PO SCH (09:42)
[2018-04-02 11:53] LABS: Glucose,Whole Blood 176 mg/dL (75-99)
[2018-04-02 17:27] LABS: Glucose,Whole Blood 160 mg/dL (75-99)
[2018-04-02] MEDS: ATORVASTATIN 20 MG TAB PO SCH (20:23)
[2018-04-02] MEDS: LEVOFLOXACIN 500 MG TAB PO SCH (20:23)
[2018-04-02] MEDS: MELATONIN 5 MG TABLET PO SCH (20:23)
[2018-04-02 20:36] LABS: Glucose,Whole Blood 136 mg/dL (75-99)
[2018-04-03] MEDS: VANCOMYCIN 2,000 MG in SODIUM CHLORIDE 0.9% 500 ML 500 ML IVPB SCH (01:05)
[2018-04-03] MEDS: VANCOMYCIN 1,750 MG in SODIUM CHLORIDE 0.9% 500 ML 500 ML IVPB SCH ×2 (01:39→17:14)
[2018-04-03] MEDS: HEPARIN SODIUM,PORCINE 5,000 UNIT/ML 1 ML VIAL SQ SCH ×4 (01:40→23:41)
[2018-04-03] MEDS: METOCLOPRAMIDE 5 MG/ML 2 ML VIAL IVP PRN ×2 (02:07→20:54)
[2018-04-03] MEDS: PIPERACILLIN-TAZOBACTAM 3.375 GM in SODIUM CHLORIDE 0.9% 100 ML IVPB SCH ×3 (04:14→20:53)
--- NOTE | 2018-04-03 07:49 | PN ---
PROGRESS NOTE DATE OF SERVICE: 04/02/2018 This 83-year-old gentleman was admitted with acute bibasilar pneumonia with positive MRSA as well as Anika albicans, also had severe sepsis and septic shock. The patient appears to be gradually improving at this time. No chest pain. No palpitations. No fever. EXAM: Alert and oriented x2. Pulse is 72, blood pressure 120/52, respirations 17, temperature 98 degrees, pulse ox 98% on 3 L. HEENT: Conjunctivae normal. Oral mucosa moist. NECK: No jugular venous distention. No lymph node enlargement. CARDIOVASCULAR: S1, S2. RESPIRATORY: Diminished breath sounds muffled at the bases. A few scattered rhonchi and crackles. ABDOMEN: Soft, nontender. LEGS: No swelling. NERVOUS SYSTEM: No focal deficits. LAB STUDIES: WBC 7, hemoglobin 10.5. Accu-Cheks are noted. ASSESSMENT: 1. Acute bibasilar pneumonia with possible secondary to MRSA as well as Anika albicans and severe sepsis, septic shock and acute hypoxic respiratory failure present on admission. 2. Change in mental status, acute metabolic encephalopathy, acute on chronic. 3. Gait dysfunction. 4. Ascending thoracic aortic aneurysm in the CT, which is stable. 5. Mild bibasilar infiltrates. 6. Congestive heart failure with acute exacerbation with acute on chronic diastolic dysfunction, ejection fraction 60-65 percent. 7. Chest pain, possible pleuritic. 8. Chronic obstructive pulmonary disease acute exacerbation. 9. Diabetes mellitus type 2. 10.History of deep vein thrombosis. 11.Hypertension. 12.Hyperlipidemia. 13.History of pulmonary embolus. 14.Hypomagnesemia. 15.Hypokalemia. 16.History of previous DVT, pulmonary embolus. 17.History of recent bilateral pneumonia. 18.History of anemia. 19.History of coronary artery disease. 20.History of chronic constipation. 21.History of chronic kidney disease stage III. 22.Depression. 23.Glaucoma. 24.History of degenerative joint disease. 25.Morbid obesity with body mass index 50.2. 26.History of MRSA in the sputum. 27.NO CODE, NO CPR, NO VENT. RECOMMENDATIONS AND DISCUSSION: I recommend to continue current medication, continue symptomatic treatment. Continue with antibiotics. Continue the bronchodilators. Continue rest of medications. Prognosis guarded. Further recommendations to follow. MMODL / IJN: [id number] /
[2018-04-03 08:07] LABS: Glucose,Whole Blood 194 mg/dL (75-99)
[2018-04-03] MEDS: ACETAMINOPHEN TAB 325 MG TAB PO SCH ×3 (08:07→22:05)
[2018-04-03] MEDS: PANTOPRAZOLE 40 MG/10 ML VIAL IV SCH (08:07)
[2018-04-03] MEDS: LOSARTAN 25 MG TAB PO SCH (08:08)
[2018-04-03] MEDS: FERROUS SULFATE 325 MG TAB PO SCH (08:08)
[2018-04-03] MEDS: ASPIRIN 81 MG PO SCH (08:08)
[2018-04-03] MEDS: FUROSEMIDE 40 MG TAB PO SCH (08:08)
[2018-04-03] MEDS: MONTELUKAST 10 MG TAB PO SCH (08:08)
[2018-04-03] MEDS: TAMSULOSIN 0.4 MG CAP.ER.24H PO SCH (08:08)
[2018-04-03] MEDS: INSULIN ASPART 100 UNIT/ML 1 ML 10 ML VIAL SQ SCH ×3 (08:08→17:14)
[2018-04-03 09:55] LABS: Anion Gap 7 mmol/L; Blood Urea Nitrogen 14 mg/dL (9-20); Calcium 8.5 mg/dL (8.4-10.2); Carbon Dioxide 25 mmol/L (22-30); Chloride 104 mmol/L (98-107); Glucose 172 mg/dL (74-99); Potassium 3.3 mmol/L (3.5-5.1); Sodium 136 mmol/L (137-145)
[2018-04-03] MEDS: IPRATROPIUM-ALBUTEROL 3 ML NEB INHALATION SCH ×4 (10:21→20:27)
[2018-04-03] MEDS: BUDESONIDE 0.5 MG/2 ML NEBU INHALATION SCH ×3 (10:22→20:27)
[2018-04-03] MEDS: ARTIFICIAL TEARS-HYPROMELLOSE DROPS 15 ML BTL BOTH EYES SCH ×2 (10:30→22:04)
[2018-04-03] MEDS: POTASSIUM CHLORIDE ER 20 MEQ TAB.ER PO SCH ×2 (10:42→11:36)
[2018-04-03 11:25] LABS: Glucose,Whole Blood 175 mg/dL (75-99)
[2018-04-03] MEDS: ONDANSETRON 4 MG/2 ML VIAL IVP PRN (16:07)
[2018-04-03 17:14] LABS: Glucose,Whole Blood 155 mg/dL (75-99)
[2018-04-03] MEDS: LEVOFLOXACIN 500 MG TAB PO SCH (20:53)
[2018-04-03 21:10] LABS: Glucose,Whole Blood 114 mg/dL (75-99)
[2018-04-03] MEDS: MELATONIN 5 MG TABLET PO SCH (22:05)
[2018-04-03] MEDS: ATORVASTATIN 20 MG TAB PO SCH (22:05)
[2018-04-03] MEDS ORDERED: MAG HYDROX/AL HYDROX/SIMETH 30 ML CUP PO PRN (22:39)
--- NOTE | 2018-04-04 00:43 | PN ---
PROGRESS NOTE DATE OF SERVICE: 04/03/2018. HISTORY: This 83-year-old gentleman who was admitted with acute bibasilar pneumonia secondary to multiple organisms is being closely monitored. No chest pain. No palpitations. No fever. The patient is on IV vancomycin. Infectious Disease also following the patient closely. EXAM: Alert oriented x2. Pulse 76, blood pressure 147/70, respirations 20, temperature 97.2, pulse ox 98% on room air. HEENT: Conjunctivae normal. NECK: Supple. CARDIOVASCULAR: S1 and S2 muffled. LUNGS: Breath sounds diminished at the bases. Bilateral scattered rhonchi and crackles. ABDOMEN: Soft. EXTREMITIES: Legs, no edema. NERVOUS SYSTEM: No focal deficits. LABS: Sodium 130, potassium 3.3. ASSESSMENT: 1. Acute bibasilar pneumonia, possibly secondary to MRSA as well as Anika albicans with severe sepsis, septic shock and acute hypoxic respiratory failure present on admission. 2. Change in mental status, acute metabolic illness acute on chronic. 3. Gait dysfunction. 4. Ascending thoracic aneurysm, CT which is stable. 5. Mild bibasilar infiltrates. 6. Congestive heart failure with acute exacerbation acute on chronic diastolic dysfunction, ejection fraction 60 to 65%. 7. Chest pain, possible pleuritic. 8. Chronic obstructive pulmonary disease acute exacerbation. 9. Diabetes type 2. 10.History of deep vein thrombosis. 11.Hypertension. 12.Hyperlipidemia. 13.History of pulmonary embolus. 14.Hypomagnesemia. 15.Hypokalemia. 16.History of previous deep venous thrombosis, pulmonary embolism. 17.History of recent bilateral pneumonia. 18.History of anemia. 19.History of coronary artery disease. 20.History of chronic constipation. 21.History of chronic kidney stage III. 22.Depression. 23.Glaucoma. 24.History of degenerative joint disease. 25.Morbid obesity with body mass index of 50.2. 26.History of MRSA in the sputum. 27.NO CODE, NO CPR, NO VENT. RECOMMENDATIONS AND DISCUSSION: I recommend to continue current medications, monitoring and symptomatic treatment. Otherwise at this time I recommend continue the antibiotics. Otherwise continue the bronchodilators. We will continue the rest of the medications. Prognosis guarded. Recommend evaluation for possible ECF rehab. Further recommendations to follow. MMODL / IJN: [id number] /
[2018-04-04] MEDS: PIPERACILLIN-TAZOBACTAM 3.375 GM in SODIUM CHLORIDE 0.9% 100 ML IVPB SCH (04:41)
[2018-04-04] MEDS: BUDESONIDE 0.5 MG/2 ML NEBU INHALATION SCH (07:39)
[2018-04-04] MEDS: IPRATROPIUM-ALBUTEROL 3 ML NEB INHALATION SCH ×3 (07:39→15:45)
[2018-04-04 07:41] VITALS: RESP 16
[2018-04-04 07:45] LABS: Glucose,Whole Blood 168 mg/dL (75-99)
[2018-04-04 08:55] LABS: Anisocytosis Slight; Basophils % (A) 1 %; Eosinophils # (A) 0.3 k/uL (0-0.7); Eosinophils % (A) 4 %; HCT 33.9 % (39.0-53.0); HGB 10.4 gm/dL (13.0-17.5); Hypochromasia Slight; Lymphocytes # (A) 1.5 k/uL (1.0-4.8); Lymphocytes % (A) 20 %; MCH 26.8 pg (25.0-35.0); MCHC 30.6 g/dL (31.0-37.0); MCV 87.6 fL (80.0-100.0); Mean Platelet Volume 6.8; Monocytes # (A) 0.4 k/uL (0-1.0); Monocytes % (A) 5 %; Neutrophils # (A) 5.1 k/uL (1.3-7.7); Neutrophils % (A) 68 %; Platelet Count 252 k/uL (150-450); RBC 3.87 m/uL (4.30-5.90); RDW 18.7 % (11.5-15.5); WBC 7.4 k/uL (3.8-10.6)
[2018-04-04 09:01] LABS: Anion Gap 9 mmol/L; Blood Urea Nitrogen 13 mg/dL (9-20); Calcium 8.5 mg/dL (8.4-10.2); Carbon Dioxide 25 mmol/L (22-30); Chloride 103 mmol/L (98-107); Glucose 148 mg/dL (74-99); Potassium 3.8 mmol/L (3.5-5.1); Sodium 137 mmol/L (137-145)
[2018-04-04] MEDS: INSULIN ASPART 100 UNIT/ML 1 ML 10 ML VIAL SQ SCH ×2 (09:22→13:31)
[2018-04-04] MEDS: ARTIFICIAL TEARS-HYPROMELLOSE DROPS 15 ML BTL BOTH EYES SCH (09:23)
[2018-04-04] MEDS: FERROUS SULFATE 325 MG TAB PO SCH (09:23)
[2018-04-04] MEDS: FUROSEMIDE 40 MG TAB PO SCH (09:23)
[2018-04-04] MEDS: MONTELUKAST 10 MG TAB PO SCH (09:23)
[2018-04-04] MEDS: PANTOPRAZOLE 40 MG/10 ML VIAL IV SCH (09:23)
[2018-04-04] MEDS: LOSARTAN 25 MG TAB PO SCH (09:23)
[2018-04-04] MEDS: ACETAMINOPHEN TAB 325 MG TAB PO SCH ×2 (09:23→15:45)
[2018-04-04] MEDS: ASPIRIN 81 MG PO SCH (09:23)
[2018-04-04] MEDS: TAMSULOSIN 0.4 MG CAP.ER.24H PO SCH (09:23)
[2018-04-04] MEDS: HEPARIN SODIUM,PORCINE 5,000 UNIT/ML 1 ML VIAL SQ SCH ×2 (09:24→16:59)
[2018-04-04] MEDS: ONDANSETRON 4 MG/2 ML VIAL IVP PRN (09:24)
[2018-04-04] MEDS: VANCOMYCIN 1,750 MG in SODIUM CHLORIDE 0.9% 500 ML 500 ML IVPB SCH (09:49)
[2018-04-04 12:04] LABS: Glucose,Whole Blood 173 mg/dL (75-99)
[2018-04-04] MEDS: METOCLOPRAMIDE 5 MG/ML 2 ML VIAL IVP PRN (13:36)
--- NOTE | 2018-04-04 15:05 | P.DS ---
Providers Date of admission: 03/27/18 18:37 Attending physician: Shar Piper Consults: 03/31/18 19:59 Consult Physician Stat Consulting Provider: Ivy Allred Consult Reason/Comments: Chest Pain Do you want consulting provider notified?: Yes 03/27/18 19:10 Consult Physician Stat Consulting Provider: Arcadio Sanchez Consult Reason/Comments: icu Do you want consulting provider notified?: Yes 03/28/18 01:36 Consult Physician Routine Consulting Provider: Gregg Dangelo Consult Reason/Comments: sepsis Do you want consulting provider notified?: Yes Primary care physician: Shar Piper Hospital Course: Final diagnosis Acute bibasilar pneumonia possibly secondary to MRSA as well as Anika albicans with severe sepsis septic shock and acute hypoxic respiratory failure present on admission. Change in mental status acute metabolic encephalopathy acute on chronic Gait dysfunction Ascending thoracic aneurysm stable per CT Mild bibasilar infiltrates CHF with acute exacerbation with acute on chronic diastolic dysfunction ejection fraction 60-65%. Chest pain possibly pruritic COPD acute exacerbation Diabetes mellitus type 2 History of DVT Hypertension Hyperlipidemia History of pulmonary embolism Hypomagnesemia Hypokalemia History of previous DVT PE History of recent bilateral pneumonia. History of anemia History of CAD History of chronic constipation History of chronic disease stage III Depression DJD history of morbid obesity with body mass index of 50.2 History of MRSA in the sputum No code no CPR no event Discharge disposition: patient discharged in a stable condition with guarded prognosis to [facility] unit. Total time to the time taken 35 minutes. History of present illness. This 83-year-old gentleman being followed by Dr. Ivania Piper in the outpatient setting was admitted with a bilateral pneumonia because of multiple organisms. Patient had multiple [facility] medical issues as listed above during the hospitalization. Patient was treated with IV antibiotics. MRSA was grown from the culture. Infectious disease was consulted. Patient improved significantly. Patient be discharged in a stable condition with guarded prognosis with the following of his medications. On exam vitals are stable. Cardio S1 and S2 normal. Respirator system few scattered rhonchi. Abdomen soft nontender. Nervous system no focal deficit. Mild diffuse weakness. Patient Condition at Discharge: Serious Plan - Discharge Summary Discharge Rx Participant: No New Discharge Prescriptions: New Ipratropium-Albuterol Nebulize [Duoneb 0.5 mg-3 mg/3 ml Soln] 3 ml INHALATION RT-QID ampul.neb Losartan [Cozaar] 25 mg PO DAILY tab Continue Ferrous Sulfate [Iron (65 MG Elemental)] 325 mg PO DAILY Tamsulosin HCl [Flomax] 0.4 mg PO DAILY Budesonide [Pulmicort] 0.5 mg INHALATION RT-BID Atorvastatin [Lipitor] 20 mg PO HS Aspirin 81 mg PO DAILY Hydrocortisone Pr Cream [Proctosol-Hc 2.5%] 1 applic RECTAL TID PRN PRN Reason: INFLAMED HERORRHOIDS Furosemide [Lasix] 40 mg PO DAILY Montelukast [Singulair] 10 mg PO DAILY Melatonin 5 mg PO HS Magnesium Hydroxide [Milk of Magnesia] 2,400 mg PO DAILY PRN PRN Reason: Constipation Acetaminophen Tab [Tylenol] 650 mg PO TID Tears Naturale Free Solution 1 drop BOTH EYES BID Insulin Aspart [NovoLOG (formulary)] 10 unit SQ AC-TID vial Bisacodyl 10 mg PO Q48H PRN PRN Reason: Constipation Mineral Oil [Fleet Mineral Oil] 113 ml RECTAL Q72H PRN PRN Reason: Constipation Amino Acids/Protein Hydrolys [Pro-Stat Supplement] 30 ml PO BID fentaNYL 100MCG/HR PATCH [Duragesic 100MCG/HR] 1 patch TRANSDERM Q72H #1 patch Discontinued Ipratropium-Albuterol Nebulize [Duoneb 0.5 mg-3 mg/3 ml Soln] 3 ml INHALATION RT-TID Losartan [Cozaar] 50 mg PO DAILY Alcohol Antiseptic Pads [Alcohol Swabs] 1 pad TOPICAL BID@0700,1999 Discharge Medication List Ferrous Sulfate [Iron (65 MG Elemental)] 325 mg PO DAILY 05/29/16 [History] Aspirin 81 mg PO DAILY 08/20/16 [History] Atorvastatin [Lipitor] 20 mg PO HS 08/20/16 [History] Budesonide [Pulmicort] 0.5 mg INHALATION RT-BID 08/20/16 [History] Tamsulosin HCl [Flomax] 0.4 mg PO DAILY 08/20/16 [History] Acetaminophen Tab [Tylenol] 650 mg PO TID 12/29/17 [History] Furosemide [Lasix] 40 mg PO DAILY 12/29/17 [History] Hydrocortisone Pr Cream [Proctosol-Hc 2.5%] 1 applic RECTAL TID PRN 12/29/17 [ History] Magnesium Hydroxide [Milk of Magnesia] 2,400 mg PO DAILY PRN 12/29/17 [History] Melatonin 5 mg PO HS 12/29/17 [History] Montelukast [Singulair] 10 mg PO DAILY 12/29/17 [History] Tears Naturale Free Solution 1 drop BOTH EYES BID 12/29/17 [History] Insulin Aspart [NovoLOG (formulary)] 10 unit SQ AC-TID vial 01/06/18 [Rx] Amino Acids/Protein Hydrolys [Pro-Stat Supplement] 30 ml PO BID 03/27/18 [ History] Bisacodyl 10 mg PO Q48H PRN 03/27/18 [History] Mineral Oil [Fleet Mineral Oil] 113 ml RECTAL Q72H PRN 03/27/18 [History] Ipratropium-Albuterol Nebulize [Duoneb 0.5 mg-3 mg/3 ml Soln] 3 ml INHALATION RT -QID ampul.neb 04/04/18 [Rx] Losartan [Cozaar] 25 mg PO DAILY tab 04/04/18 [Rx] fentaNYL 100MCG/HR PATCH [Duragesic 100MCG/HR] 1 patch TRANSDERM Q72H #1 patch 04/04/18 [Rx] Follow up Appointment(s)/Referral(s): [facility] [NON-STAFF] - As Needed Shar Piper MD [Primary Care Provider] - 2 Weeks
[2018-04-04 15:23] VITALS: BP 125/66; PULSE 84; TEMP 98.4
[2018-04-05] MEDS ORDERED: VANCOMYCIN TROUGH DUE 1 EACH MISC MISCELLANE ONE (16:30)
== END 2018-04-04 18:03 | DRG 871 ==
LOC: EC 17:43 → 3SCARD 18:37 → 2SICU 21:53 → 4SSUR 03-29 20:30
PROVIDERS: ADMIT Family Medicine; ATTEND Family Medicine
DX: A41.02 Sepsis due to Methicillin resistant Staphylococcus aureus (principal); L89.153 Pressure ulcer of sacral region, stage 3; L89.893 Pressure ulcer of other site, stage 3; B37.1 Pulmonary candidiasis; G93.41 Metabolic encephalopathy; I50.33 Acute on chronic diastolic (congestive) heart failure; J15.212 Pneumonia due to Methicillin resistant Staphylococcus aureus; J96.01 Acute respiratory failure with hypoxia; R65.21 Severe sepsis with septic shock; I13.0 Hypertensive heart and chronic kidney disease with heart failure and stage 1 through stage 4 chronic kidney disease, or unspecified chronic kidney disease; J44.0 Chronic obstructive pulmonary disease with (acute) lower respiratory infection; J44.1 Chronic obstructive pulmonary disease with (acute) exacerbation; J98.11 Atelectasis; Z68.43 Body mass index [BMI] 50.0-59.9, adult; D50.9 Iron deficiency anemia, unspecified; E11.22 Type 2 diabetes mellitus with diabetic chronic kidney disease; E11.51 Type 2 diabetes mellitus with diabetic peripheral angiopathy without gangrene; E11.65 Type 2 diabetes mellitus with hyperglycemia; E66.01 Morbid (severe) obesity due to excess calories; E78.2 Mixed hyperlipidemia; E83.42 Hypomagnesemia; E87.6 Hypokalemia; F32.9 Major depressive disorder, single episode, unspecified; H40.9 Unspecified glaucoma; H91.90 Unspecified hearing loss, unspecified ear; I25.10 Atherosclerotic heart disease of native coronary artery without angina pectoris; I27.20 Pulmonary hypertension, unspecified; I44.0 Atrioventricular block, first degree; I71.2 Thoracic aortic aneurysm, without rupture; K21.9 Gastro-esophageal reflux disease without esophagitis; K59.09 Other constipation; M19.90 Unspecified osteoarthritis, unspecified site; N18.3 Chronic kidney disease, stage 3 (moderate); N40.0 Benign prostatic hyperplasia without lower urinary tract symptoms; Y95 Nosocomial condition; Z79.4 Long term (current) use of insulin; Z79.82 Long term (current) use of aspirin; Z79.899 Other long term (current) drug therapy; Z86.14 Personal history of Methicillin resistant Staphylococcus aureus infection; Z86.711 Personal history of pulmonary embolism; Z86.718 Personal history of other venous thrombosis and embolism; Z86.79 Personal history of other diseases of the circulatory system; Z87.01 Personal history of pneumonia (recurrent); Z87.891 Personal history of nicotine dependence; Z95.828 Presence of other vascular implants and grafts; R13.10 Dysphagia, unspecified; Z66 Do not resuscitate; Z82.49 Family history of ischemic heart disease and other diseases of the circulatory system; Z80.8 Family history of malignant neoplasm of other organs or systems; Z79.01 Long term (current) use of anticoagulants; Z79.891 Long term (current) use of opiate analgesic; Z98.49 Cataract extraction status, unspecified eye; R07.89 Other chest pain; M10.9 Gout, unspecified; I08.2 Rheumatic disorders of both aortic and tricuspid valves
CPT/HCPCS: 36600; 71045; 71260; 80048; 80202; 81001; 82805; 83036; 83605; 83735; 83880; 84100; 84132; 84484; 85025; 87040; 87070; 87077; 87086; 87186; 87205; 93005; 93306; 94640; 94660; 96361; 96365; 96366; 99291

== ENCOUNTER 2019-07-01 20:35 | Inpatient (IN) | payer MEDICARE, BC ==
--- NOTE | 2019-07-01 20:53 | ED ---
General Adult HPI - General Chief complaint: GI Bleed Stated complaint: GI Bleed Time Seen by Provider: 07/01/19 20:37 Source: patient, EMS Mode of arrival: EMS Limitations: no limitations - History of Present Illness Initial comments: Dictation was produced using [employer] dictation software. please excuse any grammatical, word or spelling errors. This patient was cared for during a federal and state declared state of emergency secondary to Covid 19 Chief Complaint: 84-year-old male with past medical history of sepsis, rhabdomyolysis, heart failure, Coumadin therapy presents via EMS for GI bleed. History of Present Illness: His 84-year-old male who was sent in from [facility] emergency department for GI bleed on Coumadin. Patient was evaluated by Dr. Doll at [facility] system in [place]. Patient received presented for nausea and vomiting. He did have some emesis that was brown and concerning for bleeding. Patient was worked up. Patient is on Coumadin. He had blood and imaging testing performed at [facility]. Patient hemoglobin 12.3. Patient has history of chronic abdominal aortic aneurysm measuring 11.6 cm. Patient reports that he had his aneurysm operated on multiple times in the past however his surgeons did not want operated on it any longer because at this point risk would outweigh the benefits. Patient is understandable of this. Patient's INR was checked and [facility] found to be 2.63. He did have a CT performed showing large lower abdominal aortic aneurysm without any evidence of leakage. Patient states last time he had any emesis was 2 hours prior to arrival. He reports mild crampy abdominal pain. Patient states since being transferred [facility] he feels much better. The ROS documented in this emergency department record has been reviewed and confirmed by me. Those systems with pertinent positive or negative responses have been documented in the HPI. All other systems are other negative and/or noncontributory. PHYSICAL EXAM: General Impression: Alert and oriented x3, not in acute distress HEENT: Normocephalic atraumatic, extra-ocular movements intact, pupils equal and reactive to light bilaterally, mucous membranes moist. Cardiovascular: Heart regular rate and rhythm, S1&S2 audible, no murmurs, rubs or gallops Chest: Lungs clear to auscultation bilaterally, no rhonchi, no wheeze, no rales Abdomen: Bowel sounds present, abdomen soft, mild epigastric tenderness, non- distended, no organomegaly Musculoskeletal: Pulses present and equal in all extremities, no peripheral edema Motor: no focal deficits noted Neurological: CN II-XII grossly intact, no focal motor or sensory deficits noted Skin: Intact with no visualized rashes Psych: Normal affect and mood ED course: 84-year-old male transferred [facility] for GI bleed. Patient has history of large 11.6 cm abdominal aortic aneurysm that is chronic in nature. Patient reports that this AAA is nonoperative. As upon arrival are within acceptable limits. Patient has no respiratory complaints. Patient denies any lower GI bleed. Patient's well-appearing at bedside with stable vital signs. Discussed with patient that there is a chance that he may have wha t is called and aortoenteric fistula can cause catastrophic life-threatening bleed. Patient understands this. He reports that he wants to be made DO NOT RESUSCITATE and DO NOT INTUBATE status. Follow-up labs were performed. Hemoglobin is 11.8. INR is 2.2. He did receive vitamin K prior to transport from [facility]. Patient reevaluated at bedside vitamin stable medical condition. He has had no episodes of emesis or lower GI bleed. Patient continues to endorse minimal abdominal symptoms. Patient be admitted with consult patient to gastroenterology and vascular surgery. Patient understandable agreeable with disposition. - Related Data Home Medications Medication Instructions Recorded Confirmed Ferrous Sulfate [Iron (65 MG 325 mg PO DAILY 05/29/16 03/27/18 Elemental)] Aspirin 81 mg PO DAILY 08/20/16 03/27/18 Atorvastatin [Lipitor] 20 mg PO HS 08/20/16 03/27/18 Budesonide [Pulmicort] 0.5 mg INHALATION RT-BID 08/20/16 03/27/18 Tamsulosin HCl [Flomax] 0.4 mg PO DAILY 08/20/16 03/27/18 Acetaminophen Tab [Tylenol] 650 mg PO TID 12/29/17 03/27/18 Furosemide [Lasix] 40 mg PO DAILY 12/29/17 03/27/18 Hydrocortisone Pr Cream 1 applic RECTAL TID PRN 12/29/17 03/27/18 [Proctosol-Hc 2.5%] Magnesium Hydroxide [Milk of 2,400 mg PO DAILY PRN 12/29/17 03/27/18 Magnesia] Melatonin 5 mg PO HS 12/29/17 03/27/18 Montelukast [Singulair] 10 mg PO DAILY 12/29/17 03/27/18 Tears Naturale Free Solution 1 drop BOTH EYES BID 12/29/17 03/27/18 Amino Acids/Protein Hydrolys 30 ml PO BID 03/27/18 03/27/18 [Pro-Stat Supplement] Bisacodyl 10 mg PO Q48H PRN 03/27/18 03/27/18 Mineral Oil [Fleet Mineral Oil] 113 ml RECTAL Q72H PRN 03/27/18 03/27/18 Previous Rx's Medication Instructions Recorded INSULIN ASPART (NovoLOG) [NovoLOG 10 unit SQ AC-TID vial 01/06/18 (formulary)] Ipratropium-Albuterol Nebulize 3 ml INHALATION RT-QID ampul.neb 04/04/18 [Duoneb 0.5 mg-3 mg/3 ml Soln] Losartan [Cozaar] 25 mg PO DAILY tab 04/04/18 Sulfamethox-Tmp 800-160Mg [Bactrim 1 tab PO DAILY #20 tab 04/04/18 DS 800-160 mg] fentaNYL 100MCG/HR PATCH 1 patch TRANSDERM Q72H #1 patch 04/04/18 [Duragesic 100MCG/HR] Allergies Allergy/AdvReac Type Severity Reaction Status Date / Time No Known Allergies Allergy Verified 03/27/18 18:19 Review of Systems ROS Statement: Those systems with pertinent positive or pertinent negative responses have been documented in the HPI. ROS Other: All systems not noted in ROS Statement are negative. 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 Patient also is known to have abdominal aortic aneurysm-daughter not sure of size.. 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 writer was unable to verify the bracketed information w/pt and daughter History of Any Multi-Drug Resistant Organisms: MRSA Date of last positivie culture/infection: 03/27/18 MDRO Source:: SPUTUM MRSA Past Surgical History: Appendectomy, Hernia Repair, Tonsillectomy Additional Past Surgical History / Comment(s): cataract, hydrocele, :9 stents in legs/ 2 aortic stents", rt ext iliac stent 05/29/16 at [facility] Past Anesthesia/Blood Transfusion Reactions: No Reported Reaction Past Psychological History: No Psychological Hx Reported Smoking Status: Former smoker Past Alcohol Use History: None Reported Past Drug Use History: None Reported - Past Family History Mother Family Medical History: Cancer Additional Family Medical History / Comment(s): open heart surgery, CA ovarian and liver, lyme disease General Exam Limitations: no limitations Course Vital Signs 07/01/19 20:36 Temperature 97.7 F Pulse Rate 74 Respiratory 18 Rate Blood Pressure 126/71 O2 Sat by Pulse 94 L Oximetry Medical Decision Making - Lab Data Result diagrams: 07/01/19 20:42 Lab Results 07/01/19 07/01/19 Range/Units 20:42 20:42 WBC 10.0 (3.8-10.6) k/uL RBC 4.24 L (4.30-5.90) m/uL Hgb 11.8 L (13.0-17.5) gm/dL Hct 36.2 L (39.0-53.0) % MCV 85.4 (80.0-100.0) fL MCH 27.9 (25.0-35.0) pg MCHC 32.6 (31.0-37.0) g/dL RDW 18.0 H (11.5-15.5) % Plt Count 247 (150-450) k/uL Poikilocytosis Slight Anisocytosis Slight PT 21.6 H (9.0-12.0) sec INR 2.2 H (<1.2) APTT 32.1 H (22.0-30.0) sec Disposition Clinical Impression: GI bleed Disposition: ADMITTED IP TO THIS [facility] Condition: Fair Referrals: Shar Piper MD [Primary Care Provider] - 1-2 days Decision Time: 21:25
[2019-07-01 21:02] LABS: Anisocytosis Slight; HCT 36.2 % (39.0-53.0); HGB 11.8 gm/dL (13.0-17.5); MCH 27.9 pg (25.0-35.0); MCHC 32.6 g/dL (31.0-37.0); MCV 85.4 fL (80.0-100.0); Mean Platelet Volume 8.3; Platelet Count 247 k/uL (150-450); Poikilocytosis Slight; RBC 4.24 m/uL (4.30-5.90)
[2019-07-01 21:19] LABS: INR 2.2 (<1.2); Partial Thromboplastin Time 32.1 sec (22.0-30.0); Prothrombin Time 21.6 sec (9.0-12.0)
[2019-07-01] MEDS ORDERED: NALOXONE 0.4 MG/ML 1 ML VIAL IV PRN (21:22)
[2019-07-01] MEDS ORDERED: ACETAMINOPHEN TAB 325 MG TAB PO PRN (21:22)
[2019-07-01] MEDS: ONDANSETRON 4 MG/2 ML VIAL IVP PRN (21:38)
[2019-07-01] MEDS: SODIUM CHLORIDE 0.9% 1,000 ML IV SCH (21:39)
[2019-07-01 22:22] LABS: Glucose,Whole Blood 182 mg/dL (75-99)
[2019-07-01] MEDS: MELATONIN 5 MG TABLET PO SCH (23:37)
[2019-07-02] MEDS: ONDANSETRON 4 MG/2 ML VIAL IVP PRN ×3 (01:32→16:08)
[2019-07-02] MEDS: SODIUM CHLORIDE 0.9% 1,000 ML IV SCH ×2 (04:56→16:09)
[2019-07-02 06:37] LABS: Glucose,Whole Blood 186 mg/dL (75-99)
[2019-07-02] MEDS: INSULIN ASPART (NovoLOG) 100 UNIT/ML VIAL SQ SCH ×4 (06:41→21:41)
[2019-07-02 06:58] LABS: Anisocytosis Slight; Basophils # (A) 0.1 k/uL (0-0.2); Basophils % (A) 1 %; Eosinophils # (A) 0.3 k/uL (0-0.7); Eosinophils % (A) 4 %; HGB 11.9 gm/dL (13.0-17.5); Lymphocytes # (A) 1.5 k/uL (1.0-4.8); Lymphocytes % (A) 17 %; MCH 27.7 pg (25.0-35.0); MCHC 31.4 g/dL (31.0-37.0); MCV 88.1 fL (80.0-100.0); Mean Platelet Volume 7.2; Monocytes # (A) 0.5 k/uL (0-1.0); Monocytes % (A) 6 %; Neutrophils # (A) 6.3 k/uL (1.3-7.7); Neutrophils % (A) 71 %; Platelet Count 225 k/uL (150-450); RBC 4.31 m/uL (4.30-5.90); RDW 18.1 % (11.5-15.5); WBC 8.9 k/uL (3.8-10.6)
[2019-07-02 07:09] LABS: African American GFR (CKD) >90 (>60 ml/min/1.73 sqM); Anion Gap 7 mmol/L; Blood Urea Nitrogen 22 mg/dL (9-20); Calcium 8.9 mg/dL (8.4-10.2); Carbon Dioxide 34 mmol/L (22-30); Chloride 98 mmol/L (98-107); Glucose 187 mg/dL (74-99); Non-African American GFR(CKD) 87 (>60 ml/min/1.73 sqM); Potassium 3.4 mmol/L (3.5-5.1); Sodium 139 mmol/L (137-145)
[2019-07-02] MEDS: TAMSULOSIN 0.4 MG CAP.ER.24H PO SCH (09:03)
[2019-07-02] MEDS: PANTOPRAZOLE 40 MG/10 ML VIAL IV SCH (09:04)
--- NOTE | 2019-07-02 10:29 | CONS ---
CONSULTATION DATE OF SERVICE: July 02, 2019. REQUESTING PHYSICIAN: Dr. Shar Piper. REASON FOR CONSULTATION: Acute upper gastrointestinal bleed. HISTORY OF PRESENT ILLNESS: The patient is an 84-year-old pleasant white male with severe deafness was transferred from [facility] when he presented with several episodes of nausea, vomiting and coffee ground emesis. The patient had at least 10 episodes of nausea and vomiting yesterday along with some epigastric discomfort. He went to the emergency room at [facility] and subsequently transferred to [facility]. His initial hemoglobin on presentation was 12.3 g/dL. Currently it is down to 11.5 g/dL. The patient never had these symptoms in the past. He recalls having peptic ulcer disease about 23 years ago. He has history of DVT and PE and has been on Coumadin with an INR of 2.6. In the emergency room at [facility], he did have a CT of the abdomen and pelvis done that showed a large abdominal aortic aneurysm which measured about 11 cm in size. The patient apparently was told not a candidate for any surgical repair. Since being in the hospital, he had only one episode of coffee-ground emesis. He complains of abdominal discomfort. No melena. No recent NSAID use. PAST MEDICAL HISTORY: Significant for abdominal aortic aneurysm, hypertension, hypercholesteremia, history of DVT and PE, COPD. MEDICATIONS: At home include: Mineral oil, Colace, Singulair, Melatonin, magnesium oxide, Coumadin, iron sulfate, aspirin, atorvastatin, Tamsulosin, Lasix, Proctosol cream. ALLERGIES: None. PAST SURGICAL HISTORY: Appendectomy, hernia repair, tonsillectomy, bilateral cataract surgery. Peripheral vascular disease with stents in the leg. FAMILY HISTORY: Mother had ovarian cancer. REVIEW OF SYSTEMS: CARDIOPULMONARY: He denies any chest pain, shortness of breath. GENITOURINARY: No dysuria or hematuria. MUSCULOSKELETAL unremarkable. SKIN unremarkable. ENDOCRINE unremarkable. PSYCHIATRIC unremarkable. NEUROLOGY unremarkable. ENT/vision unremarkable. CONSTITUTIONAL: No recent weight loss. No fever, chills, night sweats. PHYSICAL EXAMINATION: He appears comfortable. No apparent distress. VITAL SIGNS: Stable. Blood pressure is 123/56, pulse is 65, temperature 98.1. HEENT: Examination unremarkable, conjunctivae are pink, sclerae anicteric. Oral cavity no lesions. NECK: No JVD or lymph node enlargement. The chest was clear to auscultation. HEART: Regular rate and rhythm. ABDOMEN was obese. There was a very minimal tenderness in the epigastric area. Bowel sounds are positive. No organomegaly. EXTREMITIES: No pedal edema. SKIN no rashes. NEURO: He is alert and oriented x3. No focal deficits. LABS: Done at the time of admission to the hospital yesterday WBC 10, hemoglobin 11.8, platelets normal. INR is 2.2. BUN 22, creatinine 0.7, hemoglobin is 11.9. IMPRESSION: 1. This is a patient who presents to the hospital with acute onset of epigastric discomfort associated with nausea, vomiting, and coffee-ground emesis that started yesterday morning. He had several episodes of coffee-ground emesis. Hemoglobin dropped from 12.8-11.9 g/dL. The patient is hemodynamically stable. Since being in the hospital, had only one episode so far. 2. History of deep vein thrombosis/pulmonary embolism, presently on Coumadin. INR yesterday was 2.2. 3. History of abdominal aortic aneurysm. CT scan done at [facility] did show 11 cm aneurysm, not a candidate for surgical intervention as per the patient who had seen a vascular surgeon in the past. 4. History of hypertension. RECOMMENDATIONS: 1. Hold Coumadin. 2. Repeat INR today and tomorrow. 3. Protonix 40 mg twice daily. 4. CBC on a daily basis. 5. We will schedule an upper endoscopy tomorrow once his INR is less than 1.5. 6. The plan was discussed with the patient is agreeable to it. Thank you for this consultation. MMODL / IJN: [id number] /
[2019-07-02 10:45] VITALS: BMI 44.1
--- NOTE | 2019-07-02 11:55 | P.GSCN ---
History of Present Illness Consult date: 07/02/19 History of present illness: The patient is an 84-year-old male with a previous history of an infrarenal abdominal aortic aneurysm that was initially fixed many years ago, and has required subsequent multiple interventions for endoleak's and aneurysmal growth. Most recent computed tomography scan at this hospital measured 10.1 x 9.2 cm back in 2017. It was significantly unchanged from previous imaging per the report. Per the patient he has been seeing an outside physician at [facility] for interventions and has had multiple interventions to attempt repair which have been unsuccessful. He was told that there was no further interventions possible, and at this time he does not want to undergo any surgical intervention. At this time there is no further imaging available from the outside hospital He came in due to feeling nauseated and having increasing emesis which was coffee grounds in color. He is on Coumadin and has been for many years, he th inks because of a DVT. His hemoglobin here has been stable. He denies any fever, chills, cough or shortness of breath. He denies any significant abdominal pain or back pain. Review of Systems 14 point review of systems, pertinent positives and negatives per the HPI Past Medical History Past Medical History: COPD, Diabetes Mellitus, Deep Vein Thrombosis (DVT), Hearing Disorder / Deafness, Hyperlipidemia, Hypertension, Pulmonary Embolus (PE) Additional Past Medical History / Comment(s): Previous history of DVT/PE and patient has a maintained on long-term and to coagulation with warfarin, BPH, COPD, GE reflux, hypertension, iron deficiency anemia, muscle weakness generalized, coronary artery disease, gout, chronic constipation, impaired hearing, coronary artery disease, chronic kidney failure stage III disease, generalized edema, difficulty in walking, hyperlipidemia, depression, seasonal ALLERGIC rhinitis, diabetes mellitus type 2, glaucoma, osteoarthritis. Patient also is known to have abdominal aortic aneurysm- 11.6 cm. History of Any Multi-Drug Resistant Organisms: MRSA Year Discovered:: 03/27/18 MDRO Source:: SPUTUM MRSA Past Surgical History: Appendectomy, Hernia Repair, Tonsillectomy Additional Past Surgical History / Comment(s): cataract, hydrocele, :9 stents in legs/ 2 aortic stents", rt ext iliac stent 05/29/16 at [place] Past Anesthesia/Blood Transfusion Reactions: No Reported Reaction Past Psychological History: No Psychological Hx Reported Smoking Status: Former smoker Past Alcohol Use History: None Reported Past Drug Use History: None Reported - Past Family History Mother Family Medical History: Cancer Additional Family Medical History / Comment(s): open heart surgery, CA ovarian and liver, lyme disease Medications and Allergies Home Medications Medication Instructions Recorded Confirmed Type Aspirin 81 mg PO DAILY@0708/20/16 07/02/19 History Atorvastatin [Lipitor] 20 mg PO HS@199908/20/16 07/02/19 History Budesonide [Pulmicort] 0.5 mg INHALATION RT-BID 08/20/16 07/02/19 History Tamsulosin HCl [Flomax] 0.4 mg PO DAILY@69908/20/16 07/02/19 History Acetaminophen Tab [Tylenol] 650 mg PO TID 12/29/17 07/01/19 History Hydrocortisone Pr Cream 1 applic RECTAL TID PRN 12/29/17 07/02/19 History [Proctosol-Hc 2.5%] Melatonin 5 mg PO HS@199912/29/17 07/02/19 History Amino Acids/Protein Hydrolys 30 ml PO BID 03/27/18 07/01/19 History [Pro-Stat Supplement] Allopurinol [Zyloprim] 300 mg PO DAILY@169907/02/19 07/02/19 History Brimonidine Tartrate [Alphagan P 1 drops BOTH EYES BID@0500,0 07/02/19 07/02/19 History 0.1% Ophth Soln] Insulin Detemir [Levemir Flextouch] 80 units SQ HS@209907/02/19 07/02/19 History Latanoprost/Pf [Latanoprost 0.005% 1 drop BOTH EYES HS@209907/02/19 07/02/19 History Eye Drop] Liquacel (Amino Acids) 30 ml PO DAILY@69907/02/19 07/02/19 History Losartan [Cozaar] 25 mg PO DAILY@69907/02/19 07/02/19 History Multivitamins, Thera [Multivitamin 1 tab PO DAILY@69907/02/19 07/02/19 History (formulary)] Nystatin 100,000 Unit/gm Powd 1 applic TOPICAL TID 07/02/19 07/02/19 History [Mycostatin Powder] Omeprazole 20 mg PO DAILY@07 04/05/20 04/05/20 History Polyethylene Glycol 3350 [Miralax] 17 gm PO DAILY@69907/02/19 07/02/19 History Sertraline HCl [Zoloft] 25 mg PO DAILY@199907/02/19 07/02/19 History Spironolactone [Aldactone] 25 mg PO DAILY@69907/02/19 07/02/19 History Warfarin Sodium 1 mg PO DAILY@209907/02/19 07/02/19 History Warfarin Sodium [Coumadin] 10 mg PO DAILY@209907/02/19 07/02/19 History Allergies Allergy/AdvReac Type Severity Reaction Status Date / Time No Known Allergies Allergy Verified 07/02/19 08:47 Surgical - Exam Vital Signs Temp Pulse Resp BP Pulse Ox 97.7 F 74 18 126/71 94 L 07/01/19 20:36 07/01/19 20:36 07/01/19 20:36 07/01/19 20:36 07/01/19 20:36 Patient is a morbidly obese male in no acute distress. HEENT is normocephalic, atraumatic, excellent motion intact. Wearing nasal oxygen and a mask. Heart is decreased, lung sounds decreased bilaterally, abdomen is morbidly obese. Bilateral lower extremity is her warm and dry. He has palpable dorsalis pedis and posterior tibial pulses bilaterally. Normal mood and affect. Cranial nerves II through XII grossly intact Results - Labs 07/02/19 06:20 07/02/19 06:20 Abnormal Lab Results - Last 24 Hours (Table) 07/01/19 07/01/19 07/01/19 Range/Units 20:42 20:42 22:20 RBC 4.24 L (4.30-5.90) m/uL Hgb 11.8 L (13.0-17.5) gm/dL Hct 36.2 L (39.0-53.0) % RDW 18.0 H (11.5-15.5) % PT 21.6 H (9.0-12.0) sec INR 2.2 H (<1.2) APTT 32.1 H (22.0-30.0) sec Potassium (3.5-5.1) mmol/L Carbon Dioxide (22-30) mmol/L BUN (9-20) mg/dL Glucose (74-99) mg/dL POC Glucose (mg/dL) 182 H (75-99) mg/dL 07/02/19 07/02/19 07/02/19 Range/Units 06:20 06:20 06:34 RBC (4.30-5.90) m/uL Hgb 11.9 L (13.0-17.5) gm/dL Hct 38.0 L (39.0-53.0) % RDW 18.1 H (11.5-15.5) % PT (9.0-12.0) sec INR (<1.2) APTT (22.0-30.0) sec Potassium 3.4 L (3.5-5.1) mmol/L Carbon Dioxide 34 H (22-30) mmol/L BUN 22 H (9-20) mg/dL Glucose 187 H (74-99) mg/dL POC Glucose (mg/dL) 186 H (75-99) mg/dL Diabetes panel 07/02/19 Range/Units 06:20 Sodium 139 (137-145) mmol/L Potassium 3.4 L (3.5-5.1) mmol/L Chloride 98 (98-107) mmol/L Carbon Dioxide 34 H (22-30) mmol/L BUN 22 H (9-20) mg/dL Creatinine 0.70 (0.66-1.25) mg/dL Glucose 187 H (74-99) mg/dL Calcium 8.9 (8.4-10.2) mg/dL Calcium panel 07/02/19 Range/Units 06:20 Calcium 8.9 (8.4-10.2) mg/dL Pituitary panel 07/02/19 Range/Units 06:20 Sodium 139 (137-145) mmol/L Potassium 3.4 L (3.5-5.1) mmol/L Chloride 98 (98-107) mmol/L Carbon Dioxide 34 H (22-30) mmol/L BUN 22 H (9-20) mg/dL Creatinine 0.70 (0.66-1.25) mg/dL Glucose 187 H (74-99) mg/dL Calcium 8.9 (8.4-10.2) mg/dL Adrenal panel 07/02/19 Range/Units 06:20 Sodium 139 (137-145) mmol/L Potassium 3.4 L (3.5-5.1) mmol/L Chloride 98 (98-107) mmol/L Carbon Dioxide 34 H (22-30) mmol/L BUN 22 H (9-20) mg/dL Creatinine 0.70 (0.66-1.25) mg/dL Glucose 187 H (74-99) mg/dL Calcium 8.9 (8.4-10.2) mg/dL Assessment and Plan Assessment: Large abdominal aortic aneurysm status post repair with continuing endoleak status post multiple interventions Coffee ground emesis, presumed upper GI bleed Morbidly obese History of DVT/PE on Coumadin hypertension COPD Hypercholesterolemia Plan: At this time attempt to obtain records from outside hospital, but with the discussion in the patient's knowledge of the inability for repair further from [facility], he is DO NOT RESUSCITATE and DO NOT INTUBATE. He understands that there is a risk of rupture with the growth aneurysm and understands his high risk otherwise. He seemingly understands the overall picture and is willing to proceed as such. We will attempt to visualize other reports to see if there is in fact any other possible intervention, No surgical plans at this point.
[2019-07-02 12:11] LABS: Glucose,Whole Blood 178 mg/dL (75-99)
--- NOTE | 2019-07-02 16:21 | P.HPIM ---
History of Present Illness H&P Date: 07/02/19 Chief Complaint: GI bleed 84-year-old male who was sent in from [facility] emergency department for GI bleed on Coumadin. Patient was evaluated by Dr. Doll at [facility] system in [place]. Patient received presented for nausea and vomiting. He did have some emesis that was brown and concerning for bleeding. Patient was worked up. Patient is on Coumadin. He had blood and imaging testing performed at [facility]. Patient hemoglobin 12.3. Patient has history of chronic abdominal aortic aneurysm measuring 11.6 cm. Patient reports that he had his aneurysm operated on multiple times in the past however his surgeons did not want operated on it any longer because at this point risk would outweigh the benefits. Patient is understandable of this. Patient's INR was checked and [facility] found to be 2.63. He did have a CT performed showing large lower abdominal aortic aneurysm without any evidence of leakage. Patient states last time he had any emesis was 2 hours prior to arrival. He reports mild crampy abdominal pain. Patient states since being transferred [facility] he feels much better. Review of Systems REVIEW OF SYSTEMS: CONSTITUTIONAL: No fever, no malaise, no fatigue. HEENT: No recent visual problems or hearing problems. Denied any sore throat. CARDIOVASCULAR: No chest pain, orthopnea, PND, no palpitations, no syncope. PULMONARY: No shortness of breath, no cough, no hemoptysis. GASTROINTESTINAL: No diarrhea, no nausea, no vomiting, no abdominal pain. NEUROLOGICAL: No headaches, no weakness, no numbness. HEMATOLOGICAL: Denies any bleeding or petechiae. GENITOURINARY: Denies any burning micturition, frequency, or urgency. MUSCULOSKELETAL/RHEUMATOLOGICAL: Denies any joint pain, swelling, or any muscle pain. ENDOCRINE: Denies any polyuria or polydipsia. The rest of the 14-point review of systems is negative. 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 Patient also is known to have abdominal aortic aneurysm- 11.6 cm. History of Any Multi-Drug Resistant Organisms: MRSA Date of last positivie culture/infection: 03/27/18 MDRO Source:: SPUTUM MRSA Past Surgical History: Appendectomy, Hernia Repair, Tonsillectomy Additional Past Surgical History / Comment(s): cataract, hydrocele, :9 stents in legs/ 2 aortic stents", rt ext iliac stent 05/29/16 at [place] Past Anesthesia/Blood Transfusion Reactions: No Reported Reaction Past Psychological History: No Psychological Hx Reported Smoking Status: Former smoker Past Alcohol Use History: None Reported Past Drug Use History: None Reported - Past Family History Mother Family Medical History: Cancer Additional Family Medical History / Comment(s): open heart surgery, CA ovarian and liver, lyme disease Medications and Allergies Home Medications Medication Instructions Recorded Confirmed Type Aspirin 81 mg PO DAILY@0708/20/16 07/02/19 History Atorvastatin [Lipitor] 20 mg PO HS@199908/20/16 07/02/19 History Budesonide [Pulmicort] 0.5 mg INHALATION RT-BID 08/20/16 07/02/19 History Tamsulosin HCl [Flomax] 0.4 mg PO DAILY@0700 08/20/16 07/02/19 History Acetaminophen Tab [Tylenol] 650 mg PO TID 12/29/17 07/01/19 History Hydrocortisone Pr Cream 1 applic RECTAL TID PRN 12/29/17 07/02/19 History [Proctosol-Hc 2.5%] Melatonin 5 mg PO HS@199912/29/17 07/02/19 History Amino Acids/Protein Hydrolys 30 ml PO BID 03/27/18 07/01/19 History [Pro-Stat Supplement] Allopurinol [Zyloprim] 300 mg PO DAILY@17007/02/19 07/02/19 History Brimonidine Tartrate [Alphagan P 1 drops BOTH EYES BID@0500,1700 07/02/19 07/02/19 History 0.1% Ophth Soln] Insulin Detemir [Levemir Flextouch] 80 units SQ HS@209907/02/19 07/02/19 History Latanoprost/Pf [Latanoprost 0.005% 1 drop BOTH EYES HS@209907/02/19 07/02/19 History Eye Drop] Liquacel (Amino Acids) 30 ml PO DAILY@69907/02/19 07/02/19 History Losartan [Cozaar] 25 mg PO DAILY@69907/02/19 07/02/19 History Multivitamins, Thera [Multivitamin 1 tab PO DAILY@69907/02/19 07/02/19 History (formulary)] Nystatin 100,000 Unit/gm Powd 1 applic TOPICAL TID 07/02/19 07/02/19 History [Mycostatin Powder] Omeprazole 20 mg PO DAILY@69907/02/19 07/02/19 History Polyethylene Glycol 3350 [Miralax] 17 gm PO DAILY@69907/02/19 07/02/19 History Sertraline HCl [Zoloft] 25 mg PO DAILY@199907/02/19 07/02/19 History Spironolactone [Aldactone] 25 mg PO DAILY@69907/02/19 07/02/19 History Warfarin Sodium 1 mg PO DAILY@209907/02/19 07/02/19 History Warfarin Sodium [Coumadin] 10 mg PO DAILY@209907/02/19 07/02/19 History Allergies Allergy/AdvReac Type Severity Reaction Status Date / Time No Known Allergies Allergy Verified 07/02/19 08:47 Physical Exam Vitals: Vital Signs Temp Pulse Pulse Resp BP BP Pulse Ox 07/02/19 08:10 98.1 F 65 19 123/56 94 L 07/02/19 04:00 98.8 F 64 20 124/62 97 07/01/19 23:47 98.3 F 66 20 136/60 95 07/01/19 23:37 68 20 07/01/19 21:46 98.4 F 68 20 134/63 97 07/01/19 20:36 97.7 F 74 18 126/71 94 L Intake and Output 07/01/19 07/02/19 07/02/19 22:59 06:59 14:59 Output Total 500 120 Balance -500 -120 Output: Urine 500 120 Other: Voiding Method Urinal Diaper # Voids 1 Weight 165.561 kg 164.5 kg 164.5 kg - Constitutional General appearance: Present: average body habitus, cooperative, no acute distress - EENT Eyes: Present: anicteric sclerae, EOMI, PERRLA, normal appearance ENT: Present: hearing grossly normal, normal oropharynx Ears: bilateral: normal - Neck Neck: Present: normal ROM. Absent: lymphadenopathy, rigidity, thyromegaly Carotids: negative: bruit present Thyroid: bilateral: normal size, negative: enlarged, nodule - Respiratory Respiratory: bilateral: CTA, negative: rales, rhonchi, wheezing - Cardiovascular Rhythm: regular Heart sounds: normal: S1, S2 Abnormal Heart Sounds: Absent: systolic murmur, diastolic murmur - Gastrointestinal General gastrointestinal: Present: normal bowel sounds, soft. Absent: distended, organomegaly, tenderness - Genitourinary Genitourinary Comment(s): deferred - Integumentary Integumentary: Present: normal turgor. Absent: jaundiced, rash, ulcer - Neurologic Neurologic: Present: CNII-XII intact. Absent: focal deficits - Musculoskeletal Musculoskeletal: Present: gait normal, strength equal bilaterally - Psychiatric Psychiatric: Present: A&O x's 3, appropriate affect, intact judgment & insight Results CBC & Chem 7: 07/02/19 06:20 07/02/19 06:20 Labs: Abnormal Lab Results - Last 24 Hours (Table) 07/01/19 07/01/19 07/01/19 Range/Units 20:42 20:42 22:20 RBC 4.24 L (4.30-5.90) m/uL Hgb 11.8 L (13.0-17.5) gm/dL Hct 36.2 L (39.0-53.0) % RDW 18.0 H (11.5-15.5) % PT 21.6 H (9.0-12.0) sec INR 2.2 H (<1.2) APTT 32.1 H (22.0-30.0) sec Potassium (3.5-5.1) mmol/L Carbon Dioxide (22-30) mmol/L BUN (9-20) mg/dL Glucose (74-99) mg/dL POC Glucose (mg/dL) 182 H (75-99) mg/dL 07/02/19 07/02/19 07/02/19 Range/Units 06:20 06:20 06:34 RBC (4.30-5.90) m/uL Hgb 11.9 L (13.0-17.5) gm/dL Hct 38.0 L (39.0-53.0) % RDW 18.1 H (11.5-15.5) % PT (9.0-12.0) sec INR (<1.2) APTT (22.0-30.0) sec Potassium 3.4 L (3.5-5.1) mmol/L Carbon Dioxide 34 H (22-30) mmol/L BUN 22 H (9-20) mg/dL Glucose 187 H (74-99) mg/dL POC Glucose (mg/dL) 186 H (75-99) mg/dL Thrombosis Risk Factor Assmnt - Choose All That Apply Each Factor Represents 1 point: Swollen legs (current) Each Risk Factor Represents 3 Points: Age 75 years or older, Family history of DVT/PE Other congenital or acquired thrombophilia - If yes, enter type in comment: No Thrombosis Risk Factor Assessment Total Risk Factor Score: 7 Thrombosis Risk Factor Assessment Level: High Risk Assessment and Plan Assessment: 1. Acute GI bleed; patient is started on Protonix 40 mg IV daily; Coumadin is put on hold; we will continue to monitor H&H closely and type crossmatch and transfuse if hemoglobin is less than 8.0; GI is consulted and recommendations are pending 2. Coagulopathy secondary to Coumadin therapy; patient takes Coumadin for DVT; patient did receive vitamin K in ED for an INR of 2.2; Coumadin remains on hold 3. Hyperlipidemia; hold statin therapy due to patient being nothing by mouth 4. COPD; continue with Pulmicort nebulizer 5. Diabetes mellitus type 1; patient takes Levemir 80 mg subcu daily at bedtime; we will hold off while patient is nothing by mouth and monitor Accu- Cheks every before meals and at bedtime with insulin sliding scale 6. History of DVT; patient is currently on Coumadin therapy which is put on hold due to GI bleed 7. Hypertension; restart home dose of losartan 25 mg daily along with Aldactone 25 mg daily DVT prophylaxis; SCDs only due to GI bleed CODE STATUS; DO NOT RESUSCITATE per patient request Time with Patient: Less than 30
[2019-07-02 17:07] LABS: Glucose,Whole Blood 141 mg/dL (75-99)
[2019-07-02 20:15] LABS: Glucose,Whole Blood 194 mg/dL (75-99)
[2019-07-02] MEDS: BUDESONIDE 0.5 MG/2 ML NEBU INHALATION SCH (21:07)
[2019-07-02] MEDS: BRIMONIDINE TARTRATE 0.2% DROPS 5 ML BTL BOTH EYES SCH (21:40)
[2019-07-02] MEDS: MELATONIN 5 MG TABLET PO SCH (21:41)
[2019-07-02] MEDS: LATANOPROST 0.005% OPHTH DROPS 2.5 ML BTL BOTH EYES SCH (21:42)
[2019-07-02] MEDS: SERTRALINE 25 MG TAB PO SCH (21:42)
[2019-07-03] MEDS: SODIUM CHLORIDE 0.9% 1,000 ML IV SCH ×3 (01:37→22:32)
[2019-07-03 01:55] VITALS: RESP 20
[2019-07-03 06:28] LABS: Glucose,Whole Blood 196 mg/dL (75-99)
[2019-07-03] MEDS: BRIMONIDINE TARTRATE 0.2% DROPS 5 ML BTL BOTH EYES SCH ×2 (06:38→17:15)
[2019-07-03] MEDS: INSULIN ASPART (NovoLOG) 100 UNIT/ML VIAL SQ SCH ×4 (06:40→22:13)
[2019-07-03 07:14] LABS: Anisocytosis Slight; Basophils % (A) 1 %; Eosinophils # (A) 0.5 k/uL (0-0.7); Eosinophils % (A) 7 %; HCT 34.2 % (39.0-53.0); Hypochromasia Slight; Lymphocytes # (A) 1.3 k/uL (1.0-4.8); Lymphocytes % (A) 18 %; MCH 28.5 pg (25.0-35.0); MCHC 32.2 g/dL (31.0-37.0); MCV 88.5 fL (80.0-100.0); Mean Platelet Volume 7.5; Monocytes # (A) 0.4 k/uL (0-1.0); Monocytes % (A) 5 %; Neutrophils # (A) 4.6 k/uL (1.3-7.7); Neutrophils % (A) 67 %; Platelet Count 210 k/uL (150-450); RBC 3.87 m/uL (4.30-5.90); RDW 17.7 % (11.5-15.5); WBC 6.9 k/uL (3.8-10.6)
[2019-07-03 07:19] LABS: INR 1.1 (<1.2); Prothrombin Time 11.1 sec (9.0-12.0)
[2019-07-03 07:27] LABS: African American GFR (CKD) >90 (>60 ml/min/1.73 sqM); Anion Gap 5 mmol/L; Blood Urea Nitrogen 21 mg/dL (9-20); Calcium 8.5 mg/dL (8.4-10.2); Carbon Dioxide 34 mmol/L (22-30); Chloride 98 mmol/L (98-107); Glucose 182 mg/dL (74-99); Non-African American GFR(CKD) 81 (>60 ml/min/1.73 sqM); Potassium 3.7 mmol/L (3.5-5.1); Sodium 137 mmol/L (137-145)
[2019-07-03] MEDS: PANTOPRAZOLE 40 MG/10 ML VIAL IV SCH (08:10)
[2019-07-03] MEDS: BUDESONIDE 0.5 MG/2 ML NEBU INHALATION SCH ×2 (09:29→19:46)
[2019-07-03] MEDS ORDERED: LIDOCAINE 1% INJ 10MG/ML (20 ML MDV) ONE (11:05)
[2019-07-03] MEDS ORDERED: PROPOFOL 10 MG/ML 20 ML VIAL IV ONE (11:05)
[2019-07-03] MEDS ORDERED: IV FLUID CONTINUATION 1,000 ML IV ONE (11:13)
[2019-07-03] MEDS ORDERED: SODIUM CHLORIDE 0.9% 500 ML 500 ML IV ONE (11:29)
--- NOTE | 2019-07-03 11:33 | P.PCN ---
Date of Procedure: 07/03/19 Description of Procedure: BRIEF HISTORY: Patient is a 84-year-old male presenting to the hospital with complaints of epigastric discomfort, nausea, vomiting, coffee-ground emesis with a fall in hemoglobin from 12.8-11.9 yesterday. Remote history of peptic ulcer disease. PROCEDURE PERFORMED: Esophagogastroduodenoscopy. PREOPERATIVE DIAGNOSIS: GI bleed, hematemesis, coffee-ground emesis. ESTIMATED BLOOD LOSS: Minimal. IV sedation per anesthesia. PROCEDURE: After informed consent was obtained, the patient was brought into the endoscopy unit. IV sedation was administered by Anesthesia under continuous monitoring. Initially the Olympus GIF-190 video endoscope was inserted into the mouth. Esophagus intubated without any difficulty. It was gradually advanced into the stomach and duodenum and carefully examined. The bulb and the second part of the duodenum appeared normal. The scope at this time was withdrawn to the stomach, adequately insufflated with air, and upon careful examination, mucosa of the antrum, body, cardia and the fundus appeared normal, except for retained food in the gastric fundus and cardia consistent with gastroparesis. The scope was then withdrawn into the esophagus. The GE junction was located at 43 cm from the incisors., with a small nonbleeding Antonieta-Proctor tear noted just proximal to the GE junction The esophagus appeared normal. There were no erosions or ulcerations seen and the patient tolerated the procedure well. IMPRESSION: 1. Nonbleeding Antonieta-Proctor tear proximal to the GE junction. 2. Retained food in the gastric cardia and fundus obscuring complete visualization of the mucosa. However no active bleeding or old blood noted in the entire examined upper GI tract. RECOMMENDATIONS: The findings of this examination were discussed with the patient. Okay to resume full liquid diet. Continue to monitor hemoglobin and hematocrit and transfuse as needed. Continue Protonix 40 mg twice daily.
[2019-07-03 11:49] LABS: Glucose,Whole Blood 174 mg/dL (75-99)
[2019-07-03] MEDS: TAMSULOSIN 0.4 MG CAP.ER.24H PO SCH (12:02)
[2019-07-03] MEDS: LOSARTAN 25 MG TAB PO SCH (12:02)
[2019-07-03] MEDS: SPIRONOLACTONE 25 MG TAB PO SCH (12:02)
--- NOTE | 2019-07-03 13:34 | P.PN ---
Subjective Progress Note Date: 07/03/19 Patient seen and examined in bed, patient just underwent EGD which showed a Antonieta-Proctor tear without any active bleeding. Patient denies any abdominal pain or chest pain. Nausea and vomiting has subsided. CT of the abdomen and pelvis completed at [facility] has been uploaded. Objective - Vital Signs Vital signs: Vital Signs Temp 98.2 F 07/03/19 12:24 Pulse 55 L 07/03/19 12:24 Resp 20 07/03/19 12:24 BP 130/58 07/03/19 12:24 Pulse Ox 96 07/03/19 12:24 Intake & Output 07/02/19 07/03/19 07/03/19 18:59 06:59 18:59 Intake Total 240 480 630 Output Total 395 350 Balance -155 130 630 Weight 164.5 kg 166.9 kg Intake: IV 150 Intake, IV Titration 480 Amount Sodium Chloride 0.9% 1, 480 000 ml @ 120 mls/hr IV . Q8H20M ALEXANDR Rx#:[id number] Oral 240 480 Output: Urine 395 350 Other: Voiding Method Urinal Urinal Diaper Diaper # Bowel Movements 1 - Exam General appearance: The patient is alert, oriented, in no acute distress. Morbidly obese. HET: Head is normocephalic and atraumatic. Neck: Supple without lymphadenopathy. Trachea midline. Heart: S1 S2. Regular rate and rhythm. Lungs: Decreased lung sounds bilaterally. No crackles or wheezes are heard. Abdomen: Morbidly obese. Soft, nontender, nondistended with bowel sounds. No peritoneal signs. No palpable organomegaly or masses. Extremities: Normal skin color and turgor. No edema bilaterally. - Labs CBC & Chem 7: 07/03/19 06:30 07/03/19 06:30 Labs: Abnormal Lab Results - Last 24 Hours (Table) 07/02/19 07/02/19 07/03/19 Range/Units 17:05 20:13 06:27 RBC (4.30-5.90) m/uL Hgb (13.0-17.5) gm/dL Hct (39.0-53.0) % RDW (11.5-15.5) % Carbon Dioxide (22-30) mmol/L BUN (9-20) mg/dL Glucose (74-99) mg/dL POC Glucose (mg/dL) 141 H 194 H 196 H (75-99) mg/dL 07/03/19 07/03/19 07/03/19 Range/Units 06:30 06:30 11:48 RBC 3.87 L (4.30-5.90) m/uL Hgb 11.0 L (13.0-17.5) gm/dL Hct 34.2 L (39.0-53.0) % RDW 17.7 H (11.5-15.5) % Carbon Dioxide 34 H (22-30) mmol/L BUN 21 H (9-20) mg/dL Glucose 182 H (74-99) mg/dL POC Glucose (mg/dL) 174 H (75-99) mg/dL Assessment and Plan Assessment: 1. Large abdominal aortic aneurysm 11.6 cm status post repair with continuing endoleak status post multiple interventions 2. Coffee-ground emesis, status post EGD showing nonbleeding Antonieta-Proctor tear 3. Morbidly obese 4. History of DVT/PE on Coumadin 5. Hypertension 6. COPD 7. Hypercholesterolemia Plan: Patient remains a DO NOT RESUSCITATE AND DO NOT INTUBATE. CT abdomen from [facility] uploaded. Dr. Schmidt to review. Further recommendations to follow. The above dictated assessment and findings were discussed with Dr. Schmidt. The impression and plan of care have been directed as dictated.
[2019-07-03 16:37] LABS: Glucose,Whole Blood 164 mg/dL (75-99)
[2019-07-03] MEDS ORDERED: ATORVASTATIN 20 MG TAB PO SCH (20:00)
[2019-07-03] MEDS: MELATONIN 5 MG TABLET PO SCH (20:38)
[2019-07-03] MEDS: LATANOPROST 0.005% OPHTH DROPS 2.5 ML BTL BOTH EYES SCH (20:38)
[2019-07-03] MEDS: SERTRALINE 25 MG TAB PO SCH (20:38)
[2019-07-03 21:39] LABS: Glucose,Whole Blood 216 mg/dL (75-99)
--- NOTE | 2019-07-04 01:06 | P.PN ---
Subjective 84-year-old male who was sent in from [facility] emergency department for GI bleed on Coumadin. Patient was evaluated by Dr. Doll at [facility] system in [place]. Patient received presented for nausea and vomiting. He did have some emesis that was brown and concerning for bleeding. Patient was worked up. Patient is on Coumadin. He had blood and imaging testing performed at [facility]. Patient hemoglobin 12.3. Patient has history of chronic abdominal aortic aneurysm measuring 11.6 cm. Patient reports that he had his aneurysm operated on multiple times in the past however his surgeons did not want operated on it any longer because at this point risk would outweigh the benefits. Patient is understandable of this. Patient's INR was checked and [facility] found to be 2.63. He did have a CT performed showing large lower abdominal aortic aneurysm without any evidence of leakage. Patient states last time he had any emesis was 2 hours prior to arrival. He reports mild crampy abdominal pain. Patient states since being transferred [facility] he feels much better. 07/03/2019 Patient had EGD which showed Antonieta-Proctor tear, no active bleeding. Patient himself denied further bleeding episodes. He is currently on clear liquid diet, we will advance diet as tolerated. Also patient aspirin and Coumadin on hold, restart aspirin and Coumadin if okay with GI service on vascular service, and if his Vitas looks stable. Hemoglobin stable at 11, INR is 1.1 and chemistry is unremarkable. Patient will need to be kept for monitoring hemoglobin Vascular surgeon on the case for AAA Review of systems CONSTITUTIONAL: No fever, no malaise, no fatigue. HEENT: No recent visual problems or hearing problems. Denied any sore throat. CARDIOVASCULAR: No orthopnea, PND, no palpitations, no syncope. PULMONARY: No shortness of breath, no cough, no hemoptysis. NEUROLOGICAL: No headaches, no weakness, no numbness. HEMATOLOGICAL: Denies any bleeding or petechiae. GENITOURINARY: Denies any burning micturition, frequency, or urgency. MUSCULOSKELETAL/RHEUMATOLOGICAL: Denies any joint pain, swelling, or any muscle pain. ENDOCRINE: Denies any polyuria or polydipsia. Active Medications Generic Name Dose Route Start Last Admin Trade Name Freq PRN Reason Stop Dose Admin Acetaminophen 650 mg 07/01/19 21:22 07/02/19 12:19 Tylenol Tab PO 650 mg Q6HR PRN Administration Mild Pain or Fever > 100.5 Atorvastatin Calcium 20 mg 07/03/19 20:00 Lipitor PO HS@2000 [facility] Brimonidine Tartrate 1 drops 07/02/19 17:00 07/03/19 06:38 Alphagan P 0.2% Ophth Soln BOTH EYES Not Given BID@0500,1700 [facility] Budesonide 0.5 mg 07/02/19 20:00 07/03/19 09:29 Pulmicort INHALATION Not Given RT-BID [facility] Fentanyl 1 patch 07/01/19 23:00 07/01/19 23:37 Duragesic 100mcg/Hr Patch TRANSDERM Not Given Q72H [facility] Sodium Chloride 1,000 mls @ 120 mls/hr 07/01/19 21:30 07/03/19 06:38 Saline 0.9% IV Not Given .Q8H20M [facility] Insulin Aspart 0 unit 07/02/19 07:30 07/03/19 12:03 Novolog SQ 2 unit ACHS [facility] Administration Protocol Latanoprost 1 drops 07/02/19 21:00 07/02/19 21:42 Xalatan 0.005% BOTH EYES Not Given HS@2100 [facility] Losartan Potassium 25 mg 07/03/19 07:00 07/03/19 12:02 Cozaar PO 25 mg DAILY@0700 [facility] Administration Melatonin 5 mg 07/01/19 23:10 07/02/19 21:41 Melatonin PO 5 mg HS [facility] Administration Naloxone HCl 0.2 mg 07/01/19 21:22 Narcan IV Q2M PRN Opioid Reversal Ondansetron HCl 4 mg 07/01/19 21:22 07/02/19 16:08 Zofran IVP 4 mg Q8HR PRN Administration Nausea And Vomiting Pantoprazole Sodium 40 mg 07/02/19 09:00 07/03/19 08:10 Protonix IV 40 mg DAILY ALEXANDR Administration Sertraline HCl 25 mg 07/02/19 20:00 07/02/19 21:42 Zoloft PO 25 mg DAILY@2000 [facility] Administration Spironolactone 25 mg 07/03/19 07:00 07/03/19 12:02 Aldactone PO 25 mg DAILY@0700 [facility] Administration Tamsulosin HCl 0.4 mg 07/02/19 09:00 07/03/19 12:02 Flomax PO 0.4 mg DAILY ALEXANDR Administration Objective - Vital Signs Vital signs: Vital Signs Temp 98.2 F 07/03/19 12:24 Pulse 55 L 07/03/19 12:24 Resp 20 07/03/19 12:24 BP 130/58 07/03/19 12:24 Pulse Ox 96 07/03/19 12:24 Intake & Output 07/02/19 07/03/19 07/03/19 18:59 06:59 18:59 Intake Total 240 480 630 Output Total 395 350 Balance -155 130 630 Weight 164.5 kg 166.9 kg Intake: IV 150 Intake, IV Titration 480 Amount Sodium Chloride 0.9% 1, 480 000 ml @ 120 mls/hr IV . Q8H20M ALEXANDR Rx#:[id number] Oral 240 480 Output: Urine 395 350 Other: Voiding Method Urinal Urinal Diaper Diaper # Bowel Movements 1 - Exam GENERAL: The patient is alert and oriented x3, not in any acute distress. Obese HEENT: Pupils are round and equally reacting to light. EOMI. No scleral icterus. No conjunctival pallor. Normocephalic, atraumatic. No pharyngeal erythema. No thyromegaly. CARDIOVASCULAR: S1 and S2 present. No murmurs, rubs, or gallops. PULMONARY: Chest is clear to auscultation, no wheezing or crackles. ABDOMEN: Soft, nontender, nondistended, normoactive bowel sounds. No palpable organomegaly. MUSCULOSKELETAL: No joint swelling or deformity. EXTREMITIES: No cyanosis, clubbing, or pedal edema. NEUROLOGICAL: Gross neurological examination did not reveal any focal deficits. SKIN: No rashes. no petechiae. - Labs CBC & Chem 7: 07/03/19 06:30 07/03/19 06:30 Labs: Abnormal Lab Results - Last 24 Hours (Table) 07/02/19 07/02/19 07/03/19 Range/Units 17:05 20:13 06:27 RBC (4.30-5.90) m/uL Hgb (13.0-17.5) gm/dL Hct (39.0-53.0) % RDW (11.5-15.5) % Carbon Dioxide (22-30) mmol/L BUN (9-20) mg/dL Glucose (74-99) mg/dL POC Glucose (mg/dL) 141 H 194 H 196 H (75-99) mg/dL 07/03/19 07/03/19 07/03/19 Range/Units 06:30 06:30 11:48 RBC 3.87 L (4.30-5.90) m/uL Hgb 11.0 L (13.0-17.5) gm/dL Hct 34.2 L (39.0-53.0) % RDW 17.7 H (11.5-15.5) % Carbon Dioxide 34 H (22-30) mmol/L BUN 21 H (9-20) mg/dL Glucose 182 H (74-99) mg/dL POC Glucose (mg/dL) 174 H (75-99) mg/dL Assessment and Plan Assessment: 1. Acute GI bleed secondary to Antonieta-Proctor tear ; patient is started on Protonix 40 mg IV daily; Coumadin is put on hold; we will continue to monitor H&H closely and type crossmatch and transfuse if hemoglobin is less than 8.0; GI is consulted and recommendations are pending. Resume Coumadin and aspirin if okay with GI and vascular surgery 2. Large abdominal aortic aneurysm, status post several intervention. Vascular surgery on the case 3. Chronic DVT; patient is currently on Coumadin therapy which is put on hold due to GI bleed, resume Coumadin and aspirin per GI service 4. Hyperlipidemia; continue with statin 5. COPD; continue with Pulmicort nebulizer. No connective tissue 6. Diabetes mellitus type 1; patient takes Levemir 80 mg subcu daily at bedtime; we will hold off monitor Accu-Cheks every before meals and at bedtime with insulin sliding scale 7. Hypertension; restart home dose of losartan 25 mg daily along with Aldactone 25 mg daily DVT prophylaxis; SCDs only due to GI bleed CODE STATUS; DO NOT RESUSCITATE per patient request
[2019-07-04 06:04] LABS: Glucose,Whole Blood 233 mg/dL (75-99)
[2019-07-04] MEDS: BRIMONIDINE TARTRATE 0.2% DROPS 5 ML BTL BOTH EYES SCH (06:09)
[2019-07-04] MEDS: LOSARTAN 25 MG TAB PO SCH (06:22)
[2019-07-04] MEDS: INSULIN ASPART (NovoLOG) 100 UNIT/ML VIAL SQ SCH ×2 (06:22→12:22)
[2019-07-04] MEDS: SPIRONOLACTONE 25 MG TAB PO SCH (06:22)
[2019-07-04 06:49] LABS: INR 1.1 (<1.2); Prothrombin Time 11.3 sec (9.0-12.0)
[2019-07-04 06:52] LABS: Anisocytosis Slight; Basophils % (A) 0 %; Eosinophils # (A) 0.3 k/uL (0-0.7); Eosinophils % (A) 5 %; HCT 33.4 % (39.0-53.0); HGB 10.8 gm/dL (13.0-17.5); Hypochromasia Slight; Lymphocytes # (A) 1.2 k/uL (1.0-4.8); Lymphocytes % (A) 18 %; MCH 28.2 pg (25.0-35.0); MCHC 32.3 g/dL (31.0-37.0); MCV 87.3 fL (80.0-100.0); Mean Platelet Volume 7.9; Monocytes # (A) 0.4 k/uL (0-1.0); Monocytes % (A) 6 %; Neutrophils # (A) 4.6 k/uL (1.3-7.7); Neutrophils % (A) 69 %; Platelet Count 194 k/uL (150-450); RBC 3.82 m/uL (4.30-5.90); RDW 17.8 % (11.5-15.5); WBC 6.6 k/uL (3.8-10.6)
[2019-07-04] MEDS: BUDESONIDE 0.5 MG/2 ML NEBU INHALATION SCH (07:46)
[2019-07-04] MEDS: TAMSULOSIN 0.4 MG CAP.ER.24H PO SCH (07:50)
[2019-07-04] MEDS: PANTOPRAZOLE 40 MG/10 ML VIAL IV SCH (07:50)
[2019-07-04 07:57] VITALS: TEMP 98.2
[2019-07-04] MEDS ORDERED: ASPIRIN 81 MG PO SCH (09:00)
[2019-07-04 11:36] LABS: Glucose,Whole Blood 243 mg/dL (75-99)
[2019-07-04] MEDS: SODIUM CHLORIDE 0.9% 1,000 ML IV SCH (12:14)
[2019-07-04 12:43] VITALS: BP 136/54; PULSE 63
--- NOTE | 2019-07-04 14:07 | P.DS ---
Providers Date of admission: 07/02/19 11:50 Expected date of discharge: 07/04/19 Attending physician: Shar Piper Consults: 07/01/19 21:02 Consult Physician Routine Consulting Provider: Greer Vance Consult Reason/Comments: Gi bleed Do you want consulting provider notified?: Yes 07/01/19 21:23 Consult Physician Routine Consulting Provider: Monica Schmidt Consult Reason/Comments: AAA Do you want consulting provider notified?: Yes Primary care physician: Shar Piper Hospital Course: Final diagnosis 1. Acute GI bleed secondary to Antonieta-Proctor tear 2. Large abdominal aortic aneurysm, status post several intervention 3. Chronic DVT 4. Hyperlipidemia 5. COPD 6. Diabetes mellitus type 1 7. Hypertension 8. DVT prophylaxis Discharge disposition Patient is being discharged in a stable condition with guarded prognosis to [facility] to need PT/OT therapy. Patient will continue on Protonix 40 mg twice daily. Patient will follow-up with Dr. Piper in the outpatient setting upon discharge. Total time taken is 35 minutes. History of present illness This is an 84-year-old male who was recently transferred from [facility] for GI bleed and was being closely monitored. Patient was seen and evaluated by GI and vascular surgery. Patient normally takes Coumadin and aspirin and this will be on hold for 1 week and may be resumed on 07/11/2019 due to recent GI bleed. Patient had a recent CT showing an abdominal aortic aneurysm that is chronic and vascular surgery evaluated the patient recommending no further surgical intervention at this time. Patient was evaluated by GI and underwent EGD showing a Antonieta-Proctor tear with no active bleeding noted. Patient's diet was advanced to clear liquids and advanced to consistent carb and tolerating well. No reports of further nausea or vomiting. Hemoglobin is stable at 10.8 and recommend repeat CBC in a few days to monitor hemoglobin closely. Patient will follow-up with Dr. Piper in the outpatient setting once discharged. Patient to continue with Accu-Cheks before meals at bedtime and treat accordingly with sliding scale. Patient will need INR monitoring once Coumadin is resumed in one week. Currently no reports of chest pain, shortness of breath, or palpitations. Patient is afebrile. Patient's condition is stable and will be going to [facility] today. On exam vital signs are stable. Temp is 98.2F, pulse is 63, respirations are 16, blood pressure is 136/54, oxygen saturation is 98% on 2 L via nasal cannula. Cardio S1, S2 are present. Respiratory system shows diminished breath sounds at the bases with no wheezing or rhonchi noted. Abdomen is soft and nontender. Nervous system system shows no focal deficits. Please refer to medication reconciliation sheet for a list of medications. Patient Condition at Discharge: Fair Plan - Discharge Summary Discharge Rx Participant: No New Discharge Prescriptions: New INSULIN ASPART (NovoLOG) [NovoLOG (formulary)] 0 unit SQ ACHS vial Pantoprazole Sodium [Protonix] 40 mg PO BID 30 Days #60 tablet.dr Continue Tamsulosin HCl [Flomax] 0.4 mg PO DAILY@0700 Budesonide [Pulmicort] 0.5 mg INHALATION RT-BID Atorvastatin [Lipitor] 20 mg PO HS@2000 Hydrocortisone Pr Cream [Proctosol-Hc 2.5%] 1 applic RECTAL TID PRN PRN Reason: INFLAMED HERORRHOIDS Melatonin 5 mg PO HS@2000 Acetaminophen Tab [Tylenol] 650 mg PO TID Amino Acids/Protein Hydrolys [Pro-Stat Supplement] 30 ml PO BID Brimonidine Tartrate [Alphagan P 0.1% Ophth Soln] 1 drops BOTH EYES BID@0500,1700 Sertraline HCl [Zoloft] 25 mg PO DAILY@2000 Multivitamins, Thera [Multivitamin (formulary)] 1 tab PO DAILY@0700 Polyethylene Glycol 3350 [Miralax] 17 gm PO DAILY@0700 Omeprazole 20 mg PO DAILY@0700 Losartan [Cozaar] 25 mg PO DAILY@0700 Liquacel (Amino Acids) 30 ml PO DAILY@0700 Insulin Detemir [Levemir Flextouch] 80 units SQ HS@2100 Latanoprost/Pf [Latanoprost 0.005% Eye Drop] 1 drop BOTH EYES HS@2100 Spironolactone [Aldactone] 25 mg PO DAILY@0700 Nystatin 100,000 Unit/gm Powd [Mycostatin Powder] 1 applic TOPICAL TID Aspirin 81 mg PO DAILY@0700 #0 Warfarin Sodium [Coumadin] 10 mg PO DAILY@2100 #0 Warfarin Sodium 1 mg PO DAILY@2100 #0 Discontinued Allopurinol [Zyloprim] 300 mg PO DAILY@1700 Discharge Medication List Atorvastatin [Lipitor] 20 mg PO HS@199908/20/16 [History] Budesonide [Pulmicort] 0.5 mg INHALATION RT-BID 08/20/16 [History] Tamsulosin HCl [Flomax] 0.4 mg PO DAILY@0708/20/16 [History] Acetaminophen Tab [Tylenol] 650 mg PO TID 12/29/17 [History] Hydrocortisone Pr Cream [Proctosol-Hc 2.5%] 1 applic RECTAL TID PRN 12/29/17 [History] Melatonin 5 mg PO HS@199912/29/17 [History] Amino Acids/Protein Hydrolys [Pro-Stat Supplement] 30 ml PO BID 03/27/18 [History] Brimonidine Tartrate [Alphagan P 0.1% Ophth Soln] 1 drops BOTH EYES BID@0500,1700 07/02/19 [History] Insulin Detemir [Levemir Flextouch] 80 units SQ HS@209907/02/19 [History] Latanoprost/Pf [Latanoprost 0.005% Eye Drop] 1 drop BOTH EYES HS@209907/02/19 [History] Liquacel (Amino Acids) 30 ml PO DAILY@69907/02/19 [History] Losartan [Cozaar] 25 mg PO DAILY@69907/02/19 [History] Multivitamins, Thera [Multivitamin (formulary)] 1 tab PO DAILY@69907/02/19 [History] Nystatin 100,000 Unit/gm Powd [Mycostatin Powder] 1 applic TOPICAL TID 07/02/19 [History] Omeprazole 20 mg PO DAILY@69907/02/19 [History] Polyethylene Glycol 3350 [Miralax] 17 gm PO DAILY@69907/02/19 [History] Sertraline HCl [Zoloft] 25 mg PO DAILY@199907/02/19 [History] Spironolactone [Aldactone] 25 mg PO DAILY@69907/02/19 [History] Aspirin 81 mg PO DAILY@0700 #0 07/04/19 [Rx] INSULIN ASPART (NovoLOG) [NovoLOG (formulary)] 0 unit SQ ACHS vial 07/04/19 [Rx] Pantoprazole Sodium [Protonix] 40 mg PO BID 30 Days #60 tablet. 07/04/19 [Rx] Warfarin Sodium 1 mg PO DAILY@2100 #0 07/04/19 [Rx] Warfarin Sodium [Coumadin] 10 mg PO DAILY@2100 #0 07/04/19 [Rx] Follow up Appointment(s)/Referral(s): Shar Piper MD [Primary Care Provider] - 1-2 days [facility], [NON-STAFF] - 1-2 Days Ambulatory/Diagnostic Orders: Complete Blood Count w/diff [LAB.AMB] Time Frame: 2 Days, Location: None Selected Activity/Diet/Wound Care/Special Instructions: Patient is going to [facility] Continue current diet with soft foods Activity as tolerated Continue to hold aspirin and Coumadin for 1 week and resume starting 07/11/2019 Repeat labs in 2-3 days to monitor hemoglobin Continue monitoring blood sugar before meals at bedtime and treat accordingly with sliding scale Discharge Disposition: TRANSFER TO SNF/ECF
[2019-07-04] MEDS ORDERED: WARFARIN 1 MG TAB PO SCH (18:00)
[2019-07-04] MEDS ORDERED: WARFARIN 10 MG TAB PO SCH (18:00)
--- NOTE | 2019-07-04 18:37 | P.PN ---
Subjective Progress Note Date: 07/04/19 Principal diagnosis: GI bleed, hematemesis Patient is seen lying in bed today denying any abdominal pain. He has been tolerating his diet but reports decreased oral intake. No further nausea or vomiting. No signs or symptoms of GI bleed. Objective - Vital Signs Vital signs: Vital Signs Temp 98.2 F 07/04/19 07:51 Pulse 64 07/04/19 07:55 Resp 20 07/04/19 07:51 BP 126/57 07/04/19 07:51 Pulse Ox 96 07/04/19 07:51 Intake & Output 07/03/19 07/04/19 07/04/19 18:59 06:59 18:59 Intake Total 990 Output Total 800 Balance 990 -800 Weight 170 kg Intake: IV 150 Oral 840 Output: Urine 800 Other: Voiding Method Urinal Urinal Urinal Diaper Diaper Diaper # Voids 1 - Exam On physical examination, patient appears comfortable in no apparent distress. HEAD: Normocephalic, atraumatic. EYES: No scleral icterus. No conjunctival injection. MOUTH: No lesions, tongue midline. NECK: Trachea midline, no gross abnormalities. ABDOMEN: Soft, obese. Bowel sounds are positive. No organomegaly. No guarding or rigidity. EXTREMITIES: No pedal edema. SKIN: No rashes, no jaundice. NEUROLOGIC: Alert and oriented x3. No focal deficits. - Labs CBC & Chem 7: 07/04/19 06:06 07/03/19 06:30 Labs: Abnormal Lab Results - Last 24 Hours (Table) 07/03/19 07/03/19 07/03/19 Range/Units 11:48 16:35 21:38 RBC (4.30-5.90) m/uL Hgb (13.0-17.5) gm/dL Hct (39.0-53.0) % RDW (11.5-15.5) % POC Glucose (mg/dL) 174 H 164 H 216 H (75-99) mg/dL 07/04/19 07/04/19 Range/Units 06:02 06:06 RBC 3.82 L (4.30-5.90) m/uL Hgb 10.8 L (13.0-17.5) gm/dL Hct 33.4 L (39.0-53.0) % RDW 17.8 H (11.5-15.5) % POC Glucose (mg/dL) 233 H (75-99) mg/dL Assessment and Plan (1) GI bleed Narrative/Plan: 84-year-old male presenting with episodes of nausea, vomiting and hematemesis. Taken for EGD yesterday with findings of a nonbleeding Antonieta-Proctor tear in the distal esophagus. Since that time no further nausea or vomiting or signs or symptoms of GI bleeding. Hemoglobin has remained stable. Tolerating diet. Status: Acute Code(s): K92.2 - GASTROINTESTINAL HEMORRHAGE, UNSPECIFIED SNOMED Code(s): 84910324 (2) Anemia associated with acute blood loss Status: Acute Code(s): D62 - ACUTE POSTHEMORRHAGIC ANEMIA SNOMED Code(s): 446219532 Plan: Supportive care Okay for diet as tolerated Continue Protonix 40 mg twice a day Results of EGD discussed with the patient at length Thank you for allowing us to participate in the patient
== END 2019-07-04 16:00 | DRG 369 ==
LOC: EC 20:35 → 3SCARD 21:22 → OBSVTOIN 07-02 11:50
PROVIDERS: ADMIT Family Medicine; ATTEND Family Medicine
PROC: 0DJ08ZZ Inspection of Upper Intestinal Tract, Via Natural or Artificial Opening Endoscopic (ICD-10-PCS; principal; 2019-07-03 08:05)
DX: K22.6 Gastro-esophageal laceration-hemorrhage syndrome (principal); Z68.42 Body mass index [BMI] 45.0-49.9, adult; I13.0 Hypertensive heart and chronic kidney disease with heart failure and stage 1 through stage 4 chronic kidney disease, or unspecified chronic kidney disease; D62 Acute posthemorrhagic anemia; E10.22 Type 1 diabetes mellitus with diabetic chronic kidney disease; E10.43 Type 1 diabetes mellitus with diabetic autonomic (poly)neuropathy; E66.01 Morbid (severe) obesity due to excess calories; E78.5 Hyperlipidemia, unspecified; Z66 Do not resuscitate; N40.0 Benign prostatic hyperplasia without lower urinary tract symptoms; J44.9 Chronic obstructive pulmonary disease, unspecified; M19.90 Unspecified osteoarthritis, unspecified site; M10.9 Gout, unspecified; I25.10 Atherosclerotic heart disease of native coronary artery without angina pectoris; E10.51 Type 1 diabetes mellitus with diabetic peripheral angiopathy without gangrene; E78.00 Pure hypercholesterolemia, unspecified; K31.84 Gastroparesis; I71.4 Abdominal aortic aneurysm, without rupture; I50.9 Heart failure, unspecified; T45.515A Adverse effect of anticoagulants, initial encounter; H91.90 Unspecified hearing loss, unspecified ear; N18.3 Chronic kidney disease, stage 3 (moderate); Z87.891 Personal history of nicotine dependence; Z86.711 Personal history of pulmonary embolism; Z79.899 Other long term (current) drug therapy; Z79.82 Long term (current) use of aspirin; Z79.4 Long term (current) use of insulin; Z79.01 Long term (current) use of anticoagulants; Z80.41 Family history of malignant neoplasm of ovary; Z86.79 Personal history of other diseases of the circulatory system; Z87.19 Personal history of other diseases of the digestive system; Z95.820 Peripheral vascular angioplasty status with implants and grafts; Z87.11 Personal history of peptic ulcer disease; Z86.718 Personal history of other venous thrombosis and embolism; Z86.14 Personal history of Methicillin resistant Staphylococcus aureus infection; Z90.49 Acquired absence of other specified parts of digestive tract; Z90.89 Acquired absence of other organs; Z98.890 Other specified postprocedural states
CPT/HCPCS: 36415; 43235; 80048; 85025; 85027; 85610; 85730; 86850; 86900; 86901; 94640; 94760; 96374; 99284

== ENCOUNTER 2020-01-26 16:10 | Inpatient (IN) | payer MEDICARE, BC, OTHER ==
--- NOTE | 2020-01-26 16:33 | ED ---
General Adult HPI - General Stated complaint: +Covid Time Seen by Provider: 01/26/20 16:24 - History of Present Illness Initial comments: Patient is an 85-year-old male with history of diabetes, hyperlipidemia, hypertension, COPD, CAD presenting to the emergency department for positive Covid. Patient is transferred from [facility] after he tested positive for Covid today. They did not allow any patient's positive for the virus to remain in the facility. Patient states he is otherwise a symptom any. Patient states he is being treated for urinary tract infection with antibiotics at this time. Patient does have shortness of breath but states that is secondary to COPD and he is normally on NC 3 L of oxygen at baseline. He denies any chest pain back pain abdominal pain at this time. Denies any night sweats fevers or chills. Denies any ENT symptoms. - Related Data Home Medications Medication Instructions Recorded Confirmed Atorvastatin [Lipitor] 20 mg PO HS@199908/20/16 07/02/19 Budesonide [Pulmicort] 0.5 mg INHALATION RT-BID 08/20/16 07/02/19 Tamsulosin HCl [Flomax] 0.4 mg PO DAILY@69908/20/16 07/02/19 Acetaminophen Tab [Tylenol] 650 mg PO TID 12/29/17 07/01/19 Hydrocortisone Pr Cream 1 applic RECTAL TID PRN 12/29/17 07/02/19 [Proctosol-Hc 2.5%] Melatonin 5 mg PO HS@199912/29/17 07/02/19 Amino Acids/Protein Hydrolys 30 ml PO BID 03/27/18 07/01/19 [Pro-Stat Supplement] Brimonidine Tartrate [Alphagan P 1 drops BOTH EYES BID@0500,1700 07/02/19 07/02/19 0.1% Ophth Soln] Insulin Detemir [Levemir Flextouch] 80 units SQ HS@209907/02/19 07/02/19 Latanoprost/Pf [Latanoprost 0.005% 1 drop BOTH EYES HS@209907/02/19 07/02/19 Eye Drop] Liquacel (Amino Acids) 30 ml PO DAILY@69907/02/19 07/02/19 Losartan [Cozaar] 25 mg PO DAILY@69907/02/1920 Multivitamins, Thera [Multivitamin 1 tab PO DAILY@0707/02/19 07/02/19 (formulary)] Nystatin 100,000 Unit/gm Powd 1 applic TOPICAL TID 07/02/19 07/02/19 [Mycostatin Powder] Omeprazole 20 mg PO DAILY@0707/02/19 07/02/19 Polyethylene Glycol 3350 [Miralax] 17 gm PO DAILY@69907/02/19 07/02/19 Sertraline HCl [Zoloft] 25 mg PO DAILY@199907/02/19 07/02/19 Spironolactone [Aldactone] 25 mg PO DAILY@69907/02/19 07/02/19 Previous Rx's Medication Instructions Recorded Aspirin 81 mg PO DAILY@0700 #0 07/04/19 INSULIN ASPART (NovoLOG) [NovoLOG 0 unit SQ ACHS vial 07/04/19 (formulary)] Pantoprazole Sodium [Protonix] 40 mg PO BID 30 Days #60 tablet. 07/04/19 Warfarin Sodium 1 mg PO DAILY@2100 #0 07/04/19 Warfarin Sodium [Coumadin] 10 mg PO DAILY@2100 #0 07/04/19 Allergies Allergy/AdvReac Type Severity Reaction Status Date / Time No Known Allergies Allergy Verified 01/26/20 16:35 Review of Systems ROS Statement: Those systems with pertinent positive or pertinent negative responses have been documented in the HPI. ROS Other: All systems not noted in ROS Statement are negative. 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 Patient also is known to have abdominal aortic aneurysm- 11.6 cm. History of Any Multi-Drug Resistant Organisms: MRSA Date of last positivie culture/infection: 03/27/18 MDRO Source:: SPUTUM MRSA Past Surgical History: Appendectomy, Hernia Repair, Tonsillectomy Additional Past Surgical History / Comment(s): cataract, hydrocele, :9 stents in legs/ 2 aortic stents", rt ext iliac stent 05/29/16 at [place] Past Anesthesia/Blood Transfusion Reactions: No Reported Reaction Past Psychological History: No Psychological Hx Reported Past Alcohol Use History: None Reported Past Drug Use History: None Reported - Past Family History Mother Family Medical History: Cancer Additional Family Medical History / Comment(s): open heart surgery, CA ovarian and liver, lyme disease General Exam Limitations: no limitations General appearance: alert, in no apparent distress, obese (Morbidly obese) Head exam: Present: atraumatic, normocephalic, normal inspection, other (Infection noted on the left side of his neck that is currently being treated and dressing is applied.) Eye exam: Present: normal appearance, PERRL, EOMI Pupils: Present: normal accommodation ENT exam: Present: normal exam, normal oropharynx, mucous membranes moist, TM's normal bilaterally, normal external ear exam Neck exam: Present: normal inspection, full ROM. Absent: tenderness Respiratory exam: Present: normal lung sounds bilaterally. Absent: respiratory distress, wheezes, rales Cardiovascular Exam: Present: regular rate, normal rhythm, normal heart sounds GI/Abdominal exam: Present: soft. Absent: distended, tenderness, guarding Extremities exam: Present: normal inspection, full ROM, normal capillary refill. Absent: tenderness Back exam: Present: normal inspection, full ROM. Absent: tenderness, CVA tenderness (R), CVA tenderness (L) Neurological exam: Present: alert, oriented X3 Psychiatric exam: Present: normal affect, normal mood. Absent: depressed, agitated Skin exam: Present: warm, dry, intact, normal color Course Vital Signs 01/26/2020 01/26/20 16:28 17:00 18:00 Temperature 98.1 F Pulse Rate 77 78 Respiratory 20 20 Rate Blood Pressure 125/55 125/55 96/68 O2 Sat by Pulse 97 100 Oximetry EKG Findings - EKG Comments: EKG Findings:: Right bundle-branch block. 77 ventricular rate, NV 186, QRS 112, QTC 622. Medical Decision Making - Medical Decision Making Patient is a 85-year-old male with metabolic syndrome and oxygen dependent COPD presenting to the emergency department for Covid positive. Patient is asymptomatic. Patient has a Schmidt catheter in place. Patient is currently be ing treated for a urinary tract infection. CBC reveals mild anemia but no leukocytosis. CMP reveals slight elevation BUN at 25. Mild hypocalcemia at 8.1. Chest x-ray reveals some infiltrate and slight volume loss in the left lateral lung base. UA revealed microscopic hematuria which is suspect is secondary to the Schmidt catheter. She also has elevated leukocyte esterase and white blood cells. Patient to be started on Rocephin and azithromycin for atypical coverage. Patient will be admitted for further medical management. Prolactin, CRP, ferritin pending. Case discussed with Admitting is Dr Garland - Lab Data Result diagrams: 01/26/20 16:51 01/26/20 16:51 Lab Results 01/26/20 01/26/20 01/26/20 Range/Units 16:51 16:51 16:51 WBC 4.7 (3.8-10.6) k/uL RBC 4.05 L (4.30-5.90) m/uL Hgb 11.2 L (13.0-17.5) gm/dL Hct 34.0 L (39.0-53.0) % MCV 84.0 (80.0-100.0) fL MCH 27.6 (25.0-35.0) pg MCHC 32.8 (31.0-37.0) g/dL RDW 17.5 H (11.5-15.5) % Plt Count 196 (150-450) k/uL Neutrophils % 73 % Lymphocytes % 15 % Monocytes % 6 % Eosinophils % 3 % Basophils % 1 % Neutrophils # 3.5 (1.3-7.7) k/uL Lymphocytes # 0.7 L (1.0-4.8) k/uL Monocytes # 0.3 (0-1.0) k/uL Eosinophils # 0.2 (0-0.7) k/uL Basophils # 0.1 (0-0.2) k/uL Poikilocytosis Slight Anisocytosis Slight Sodium 130 L (137-145) mmol/L Potassium 3.9 (3.5-5.1) mmol/L Chloride 94 L (98-107) mmol/L Carbon Dioxide 28 (22-30) mmol/L Anion Gap 8 mmol/L BUN 25 H (9-20) mg/dL Creatinine 1.03 (0.66-1.25) mg/dL Est GFR (CKD-EPI)AfAm 77 (>60 ml/min/1.73 sqM) Est GFR (CKD-EPI)NonAf 67 (>60 ml/min/1.73 sqM) Glucose 182 H (74-99) mg/dL Plasma Lactic Acid Darrick 1.2 (0.7-2.0) mmol/L Calcium 8.3 L (8.4-10.2) mg/dL Magnesium (1.6-2.3) mg/dL Total Bilirubin 0.5 (0.2-1.3) mg/dL AST 24 (17-59) U/L ALT 14 (4-49) U/L Alkaline Phosphatase 79 (38-126) U/L Troponin I (0.000-0.034) ng/mL Total Protein 6.1 L (6.3-8.2) g/dL Albumin 3.3 L (3.5-5.0) g/dL Urine Color Urine Appearance (Clear) Urine pH (5.0-8.0) Ur Specific [place] (1.001-1.035) Urine Protein (Negative) Urine Glucose (UA) (Negative) Urine Ketones (Negative) Urine Blood (Negative) Urine Nitrite (Negative) Urine Bilirubin (Negative) Urine Urobilinogen (<2.0) mg/dL Ur Leukocyte Esterase (Negative) Urine RBC (0-5) /hpf Urine WBC (0-5) /hpf Urine Bacteria (None) /hpf Hyaline Casts (0-2) /lpf Urine Mucus (None) /hpf 01/26/20 01/26/20 01/26/20 Range/Units 16:51 18:04 18:29 WBC (3.8-10.6) k/uL RBC (4.30-5.90) m/uL Hgb (13.0-17.5) gm/dL Hct (39.0-53.0) % MCV (80.0-100.0) fL MCH (25.0-35.0) pg MCHC (31.0-37.0) g/dL RDW (11.5-15.5) % Plt Count (150-450) k/uL Neutrophils % % Lymphocytes % % Monocytes % % Eosinophils % % Basophils % % Neutrophils # (1.3-7.7) k/uL Lymphocytes # (1.0-4.8) k/uL Monocytes # (0-1.0) k/uL Eosinophils # (0-0.7) k/uL Basophils # (0-0.2) k/uL Poikilocytosis Anisocytosis Sodium (137-145) mmol/L Potassium (3.5-5.1) mmol/L Chloride (98-107) mmol/L Carbon Dioxide (22-30) mmol/L Anion Gap mmol/L BUN (9-20) mg/dL Creatinine (0.66-1.25) mg/dL Est GFR (CKD-EPI)AfAm (>60 ml/min/1.73 sqM) Est GFR (CKD-EPI)NonAf (>60 ml/min/1.73 sqM) Glucose (74-99) mg/dL Plasma Lactic Acid Darrick (0.7-2.0) mmol/L Calcium (8.4-10.2) mg/dL Magnesium 1.9 (1.6-2.3) mg/dL Total Bilirubin (0.2-1.3) mg/dL AST (17-59) U/L ALT (4-49) U/L Alkaline Phosphatase (38-126) U/L Troponin I <0.012 (0.000-0.034) ng/mL Total Protein (6.3-8.2) g/dL Albumin (3.5-5.0) g/dL Urine Color Yellow Urine Appearance Clear (Clear) Urine pH 7.0 (5.0-8.0) Ur Specific [place] 1.014 (1.001-1.035) Urine Protein Trace H (Negative) Urine Glucose (UA) Negative (Negative) Urine Ketones Negative (Negative) Urine Blood Large H (Negative) Urine Nitrite Negative (Negative) Urine Bilirubin Negative (Negative) Urine Urobilinogen <2.0 (<2.0) mg/dL Ur Leukocyte Esterase Large H (Negative) Urine RBC 157 H (0-5) /hpf Urine WBC 45 H (0-5) /hpf Urine Bacteria Many H (None) /hpf Hyaline Casts 6 H (0-2) /lpf Urine Mucus Rare H (None) /hpf Disposition Clinical Impression: Lab test positive for detection of COVID-19 virus, Urinary tract infection, Lung infiltrate Disposition: ADMITTED IP TO THIS HOSP Condition: Fair Is patient prescribed a controlled substance at d/c from ED?: No Referrals: Shar Piper MD [Primary Care Provider] - 1-2 days Time of Disposition: 19:02
[2020-01-26] MEDS ORDERED: SODIUM CHLORIDE 0.9% 500 ML 500 ML IV STA (16:45)
[2020-01-26] MEDS ORDERED: SODIUM CHLORIDE 0.9% 1,000 ML IV STA (17:11)
[2020-01-26 17:30] LABS: Anisocytosis Slight; Basophils # (A) 0.1 k/uL (0-0.2); Basophils % (A) 1 %; Eosinophils # (A) 0.2 k/uL (0-0.7); Eosinophils % (A) 3 %; HGB 11.2 gm/dL (13.0-17.5); Lymphocytes # (A) 0.7 k/uL (1.0-4.8); Lymphocytes % (A) 15 %; MCH 27.6 pg (25.0-35.0); MCHC 32.8 g/dL (31.0-37.0); Monocytes # (A) 0.3 k/uL (0-1.0); Monocytes % (A) 6 %; Neutrophils # (A) 3.5 k/uL (1.3-7.7); Neutrophils % (A) 73 %; Platelet Count 196 k/uL (150-450); Poikilocytosis Slight; RBC 4.05 m/uL (4.30-5.90); RDW 17.5 % (11.5-15.5); WBC 4.7 k/uL (3.8-10.6)
--- NOTE | 2020-01-26 17:46 | XR ---
EXAMINATION TYPE: XR chest 2V DATE OF EXAM: 01/26/2020 COMPARISON: 03/29/2018 HISTORY: Short of breath. There is some coarse interstitial and airspace infiltrate left lower lobe. The right lung is relative ly clear. Heart and mediastinum appear deviated slightly to the left side. Exam limited by rotation. There is no heart failure. Thoracic aorta is atheromatous. There are no hilar masses. The bony thorax is intact. IMPRESSION: There is some infiltrate and slight volume loss left lateral lung base also present on ol d exam. No heart failure seen. There is probably some underlying pulmonary fibrosis.
[2020-01-26 17:47] LABS: Albumin 3.3 g/dL (3.5-5.0); Calcium 8.3 mg/dL (8.4-10.2); Potassium 3.9 mmol/L (3.5-5.1); Total Bilirubin 0.5 mg/dL (0.2-1.3); Total Protein 6.1 g/dL (6.3-8.2)
[2020-01-26 18:50] LABS: Appearance,Urine Clear (Clear); Bacteria,Urine Many /hpf; Bilirubin,Urine Negative (Negative); Blood,Urine Large (Negative); Color,Urine Yellow; Glucose,Urine (UA) Negative (Negative); Hyaline Casts,Urine 6 /lpf (0-2); Ketones,Urine Negative (Negative); Leukocyte Esterase,Urine Large (Negative); Mucus,Urine Rare /hpf; Nitrite,Urine Negative (Negative); Protein,Urine Trace (Negative); RBC,Urine 157 /hpf (0-5); Specific Gravity,Urine 1.014 (1.001-1.035); Urobilinogen,Urine <2.0 mg/dL (<2.0); WBC,Urine 45 /hpf (0-5)
[2020-01-26] MEDS ORDERED: NALOXONE 0.4 MG/ML 1 ML VIAL IV PRN (18:56)
[2020-01-26] MEDS ORDERED: ONDANSETRON 4 MG/2 ML VIAL IVP PRN (18:56)
[2020-01-26] MEDS ORDERED: LORazepam 2 MG/ML INJ IV PRN (18:56)
[2020-01-26] MEDS ORDERED: cefTRIAXone IN SWFI 1,000 MG/10 ML SYRINGE IVP STA (18:57)
[2020-01-26] MEDS ORDERED: AZITHROMYCIN 500 MG TAB PO STA (18:58)
[2020-01-26] MEDS: SODIUM CHLORIDE 0.9% 1,000 ML IV SCH (19:41)
[2020-01-26] MEDS ORDERED: bisacodyL 10 MG SUPP RECTAL PRN (20:01)
[2020-01-26] MEDS ORDERED: NA PHOS,M-B/NA PHOS,DI-BA 133 ML ENEMA RECTAL PRN (20:01)
[2020-01-26] MEDS ORDERED: MONTELUKAST 10 MG TAB PO PRN (20:01)
[2020-01-26] MEDS ORDERED: SIMETHICONE 80 MG CHEWABLE PO PRN (20:01)
[2020-01-26 20:12] LABS: C Reactive Protein 55.6 mg/L (<10.0)
[2020-01-26 20:15] LABS: INR 2.6 (<1.2); Partial Thromboplastin Time 42.3 sec (22.0-30.0); Prothrombin Time 25.2 sec (9.0-12.0)
[2020-01-26 20:18] LABS: D-Dimer 6.1 mg/L FEU (<0.60)
[2020-01-26] MEDS ORDERED: WARFARIN 3 MG TAB PO SCH (22:00)
[2020-01-26] MEDS ORDERED: INSULIN DETEMIR 100 UNIT/ML SQ SCH (22:00)
[2020-01-26] MEDS ORDERED: INSULN SQ SCH (22:00)
[2020-01-26] MEDS: FUROSEMIDE 20 MG TAB PO SCH (22:15)
[2020-01-26] MEDS: SERTRALINE 25 MG TAB PO SCH (22:16)
[2020-01-26] MEDS: LATANOPROST 0.005% OPHTH DROPS 2.5 ML BTL BOTH EYES SCH (22:16)
[2020-01-26] MEDS: MELATONIN 5 MG TABLET PO SCH (22:16)
[2020-01-26] MEDS: INSULIN DETEMIR (LEVEMIR) 100 UNIT/ML SYR SQ SCH (22:17)
[2020-01-26] MEDS: WARFARIN 3 MG TAB PO SCH (22:19)
[2020-01-26] MEDS: ACETAMINOPHEN TAB 325 MG TAB PO PRN (22:30)
[2020-01-26] MEDS: ATORVASTATIN 20 MG TAB PO SCH (22:30)
[2020-01-26] MEDS: SENNOSIDES-DOCUSATE SODIUM 1 EACH TAB PO SCH (22:30)
[2020-01-26] MEDS: TAMSULOSIN 0.4 MG CAP.ER.24H PO SCH (22:31)
[2020-01-27 03:20] LABS: Ferritin 234.2 ng/mL (22.0-322.0)
[2020-01-27 07:36] LABS: Calcium 8.1 mg/dL (8.4-10.2); Potassium 4.2 mmol/L (3.5-5.1)
[2020-01-27 08:00] LABS: Glucose,Whole Blood 179 mg/dL (75-99)
[2020-01-27 08:34] LABS: Anisocytosis Slight; Basophils % (A) 1 %; Eosinophils # (A) 0.3 k/uL (0-0.7); Eosinophils % (A) 6 %; HGB 10.9 gm/dL (13.0-17.5); Hypochromasia Slight; Lymphocytes # (A) 0.9 k/uL (1.0-4.8); Lymphocytes % (A) 19 %; MCH 26.4 pg (25.0-35.0); MCHC 31.2 g/dL (31.0-37.0); MCV 84.7 fL (80.0-100.0); Mean Platelet Volume 7.6; Monocytes # (A) 0.3 k/uL (0-1.0); Monocytes % (A) 7 %; Neutrophils % (A) 65 %; Platelet Count 208 k/uL (150-450); Poikilocytosis Slight; RBC 4.14 m/uL (4.30-5.90); RDW 17.5 % (11.5-15.5); WBC 4.6 k/uL (3.8-10.6)
[2020-01-27 11:40] LABS: INR 3.3 (<1.2); Prothrombin Time 32.6 sec (9.0-12.0)
[2020-01-27] MEDS: polyethylene glycoL 3350 17 GM POWD.PACK PO SCH (11:55)
[2020-01-27] MEDS: WARFARIN 3 MG TAB PO SCH (11:57)
[2020-01-27] MEDS: ASPIRIN 81 MG PO SCH (12:01)
[2020-01-27] MEDS: FUROSEMIDE 40 MG TAB PO SCH (12:01)
[2020-01-27] MEDS: SENNOSIDES-DOCUSATE SODIUM 1 EACH TAB PO SCH ×2 (12:01→22:13)
[2020-01-27] MEDS: PANTOPRAZOLE 40 MG TABLET PO SCH ×2 (12:01→22:09)
[2020-01-27] MEDS: TAMSULOSIN 0.4 MG CAP.ER.24H PO SCH ×2 (12:01→22:09)
[2020-01-27] MEDS: SPIRONOLACTONE 25 MG TAB PO SCH (12:01)
[2020-01-27] MEDS: INSULIN ASPART (NovoLOG) 100 UNIT/ML VIAL SQ SCH ×4 (12:06→22:10)
[2020-01-27 12:18] LABS: Glucose,Whole Blood 173 mg/dL (75-99)
[2020-01-27 17:17] LABS: Glucose,Whole Blood 201 mg/dL (75-99)
[2020-01-27] MEDS ORDERED: WARFARIN 0.5 MG TAB PO ONE (18:00)
[2020-01-27 20:33] LABS: Glucose,Whole Blood 202 mg/dL (75-99)
[2020-01-27] MEDS: ATORVASTATIN 20 MG TAB PO SCH (22:09)
[2020-01-27] MEDS: MELATONIN 5 MG TABLET PO SCH (22:09)
[2020-01-27] MEDS: FUROSEMIDE 20 MG TAB PO SCH (22:09)
[2020-01-27] MEDS: SERTRALINE 25 MG TAB PO SCH (22:10)
[2020-01-27] MEDS: INSULIN DETEMIR (LEVEMIR) 100 UNIT/ML SYR SQ SCH (22:10)
[2020-01-27] MEDS: LATANOPROST 0.005% OPHTH DROPS 2.5 ML BTL BOTH EYES SCH (22:23)
--- NOTE | 2020-01-28 00:33 | P.HPIM ---
History of Present Illness H&P Date: 01/27/20 Chief Complaint: Transfer from [facility] for COVID positive Mr. Gasca is an 85-year-old male with a past medical history of COPD, diabetes mellitus, DVT, hearing disorder, hypertension, hyperlipidemia, BPH, GERD, hypertension, hyperlipidemia, coronary artery disease, gout, chronic constipation, CK D stage III, glaucoma, depression, difficulty ambulating sent in from [facility] facility for being tested for COVID 19. Patient states that he does not have any symptoms and that they send all the patient's in the facility to the hospital who tested positive for Covid. Patient denies having any complaints. Patient is on 3 L of oxygen, he remains asymptomatic. He denies having any cough or difficulty in breathing. He denies having any fevers chills or rigors. Patient denies having any chest pain or palpitations. No bowel pain nausea vomiting or diarrhea. Patient states he has chronic constipation denies having any blood in his stools. Patient denies having any headache, dizziness or neck stiffness. He denies having any weakness of his extremities. Patient states that he generally cannot get out of the bed for the past 3 years since he had been in the [place] [facility]. In the ER patient was noted to have large leukocyte esterase and blood in urine. Patient also had a chest x-ray showing small infiltrate and light volume loss in the left lateral lung base. So the patient has been started on ceftriaxone and Zithromax and admitted for further management. Review of Systems REVIEW OF SYSTEMS: PSYCH: No anxiety or depression NEURO:No c/o weakness of the extremties, No facial droop, No speech abnormalities. VASCULAR: no edema HEMATOLOGIC: No history of easy bleeding and bruising . No recent infections . RESPIRATORY: No cough, No SOB, No chest discomfort. IMMUNE: No infections INTEGUMENT: no rashes OPHTHALMOLOGIC: No blurry vision and no eye discharge : No dysuria. He is not sure about hematuria CARDIAC: No chest pain , shortness of breath , paroxysmal nocturnal dyspnea MUSCULOSKELETAL : No Aches or pains in the joints or muscles. GI: No abdominal pain, Nausea or vomiting. 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 Patient also is known to have abdominal aortic aneurysm- 11.6 cm. History of Any Multi-Drug Resistant Organisms: MRSA Date of last positivie culture/infection: 03/27/18 MDRO Source:: SPUTUM MRSA Past Surgical History: Appendectomy, Hernia Repair, Tonsillectomy Additional Past Surgical History / Comment(s): cataract, hydrocele, :9 stents in legs/ 2 aortic stents", rt ext iliac stent 05/29/16 at [place] Past Anesthesia/Blood Transfusion Reactions: No Reported Reaction Past Psychological History: No Psychological Hx Reported Smoking Status: Never smoker Past Alcohol Use History: None Reported Past Drug Use History: None Reported - Past Family History Mother Family Medical History: Cancer Additional Family Medical History / Comment(s): open heart surgery, CA ovarian and liver, lyme disease Medications and Allergies Home Medications Medication Instructions Recorded Confirmed Type Atorvastatin [Lipitor] 20 mg PO HS@199908/20/16 01/26/20 History Budesonide [Pulmicort] 0.5 mg INHALATION RT-BID@0700,1700 08/20/16 01/26/20 History Tamsulosin HCl [Flomax] 0.4 mg PO BID@07,199908/20/16 01/26/20 History Acetaminophen Tab [Tylenol] 650 mg PO Q6H PRN 12/29/17 01/26/20 History Melatonin 5 mg PO HS@199912/29/17 01/26/20 History Brimonidine Tartrate [Alphagan P 1 drops BOTH EYES BID@0500,1700 07/02/19 01/26/20 History 0.1% Ophth Soln] Insulin Detemir [Levemir Flextouch] 80 units SQ HS@209907/02/19 01/26/20 History Latanoprost/Pf [Latanoprost 0.005% 1 drop BOTH EYES HS@209907/02/19 01/26/20 History Eye Drop] Liquacel (Amino Acids) 30 ml PO DAILY@0700 07/02/19 01/26/20 History Losartan [Cozaar] 25 mg PO DAILY@00 07/02/19 01/26/20 History Multivitamins, Thera [Multivitamin 1 tab PO DAILY@69907/02/19 01/26/20 History (formulary)] Polyethylene Glycol 3350 [Miralax] 17 gm PO DAILY@69907/02/19 01/26/20 History Sertraline HCl [Zoloft] 25 mg PO DAILY@199907/02/19 01/26/20 History Spironolactone [Aldactone] 25 mg PO DAILY@69907/02/19 01/26/20 History Aspirin 81 mg PO DAILY@0700 #0 07/04/19 01/26/20 Rx Bisacodyl 10 mg PO Q48H PRN 01/26/20 01/26/20 History Dextran 70/Hypromellose [Genteal 1 drop BOTH EYES BID@0700,199901/26/20 01/26/20 History Tears 0.1%-0.3% Drop] Furosemide [Lasix] 20 mg PO DAILY@209901/26/20 01/26/20 History Furosemide [Lasix] 40 mg PO DAILY@119901/26/20 01/26/20 History Insulin Aspart [NovoLOG Flexpen] See Protocol SQ ACHS@07,12,17,21 01/26/20 01/26/20 History Ipratropium-Albuterol Nebulize 3 ml INHALATION RT-TID@05,12,18 01/26/20 01/26/20 History [Duoneb 0.5 mg-3 mg/3 ml Soln] Mag Hydrox/Aluminum Hyd/Simeth 10 ml PO Q4H PRN 01/26/20 01/26/20 History [Mylanta Maximum Strength Liq] Magnesium Hydroxide [Milk of 2,400 mg PO DAILY@119901/26/20 01/26/20 History Magnesia] Magnesium Hydroxide [Milk of 2,400 mg PO Q4HR PRN 01/26/20 01/26/20 History Magnesia] Menthol [Nice Cough Drops] 1 lozenge BUCCAL Q4H PRN 01/26/20 01/26/20 History Montelukast Sodium [Singulair] 10 mg PO Q24H PRN 01/26/20 01/26/20 History Na Phos,M-B/Na Phos,Di-Ba [Fleet 133 ml RECTAL Q96H PRN 01/26/20 01/26/20 History Adult] Ondansetron [Zofran] 4 mg PO Q6H PRN 01/26/20 01/26/20 History Pantoprazole Sodium [Protonix] 40 mg PO BID@0700,199901/26/20 01/26/20 History Sennosides-Docusate Sodium 2 tab PO BID@0700,209901/26/20 01/26/20 History [Senokot-S] Simethicone [Gas-X] 250 mg PO Q6H PRN 01/26/20 01/26/20 History Sulfamethox-Tmp 800-160Mg [Bactrim 1 tab PO DAILY@1300 01/26/20 01/26/20 History DS 800-160 mg] Warfarin Sodium 6 mg PO HS@209901/26/20 01/26/20 History Warfarin [Coumadin] 3 mg PO HS@209901/26/20 01/26/20 History bisacodyL [Dulcolax] 10 mg RECTAL Q72H PRN 01/26/20 01/26/20 History fentaNYL 100MCG/HR PATCH 1 patch TRANSDERM Q72H 01/26/20 01/26/20 History [Duragesic 100MCG/HR] guaiFENesin [Diabetic Tussin Ex] 200 mg PO Q4H PRN 01/26/20 01/26/20 History Allergies Allergy/AdvReac Type Severity Reaction Status Date / Time No Known Allergies Allergy Verified 01/26/20 16:35 Physical Exam Vitals: Vital Signs Temp Pulse Pulse Resp BP BP Pulse Ox 01/27/20 07:00 97.9 F 74 18 133/65 98 01/27/20 00:00 20 01/26/20 23:26 97.6 F 75 20 131/55 95 01/26/20 22:00 98.5 F 78 18 122/65 96 01/26/20 19:44 98.0 F 78 18 117/83 94 L 01/26/20 18:00 78 20 96/68 100 01/26/20 17:00 125/55 01/26/20 16:28 98.1 F 77 20 125/55 97 Intake and Output 01/26/20 01/27/20 01/27/20 22:59 06:59 14:59 Output Total 650 500 Balance -650 -500 Output: Urine 650 500 Other: Voiding Method Indwelling Catheter # Bowel Movements 1 Weight 163.293 kg GEN. APPEARANCE: alert, in no apparent distress HEAD EXAM: atraumatic, normocephalic, normal inspection EYE EXAM: No pallor. No icterus. RESPIRATORY EXAM: Diminished air entry bilaterally, decreased lung sounds bilaterally. No wheezes or crackles CARDIOVASCULAR EXAM: S1 and S2 heard. No additional sounds. GI/ABDOMINAL EXAM: soft, normal bowel sounds. Soft nontender. EXTREMITIES EXAM: no edema NEUROLOGICAL EXAM: alert, oriented X3, no focal deficits PSYCHIATRIC EXAM: normal affect, normal mood Results CBC & Chem 7: 01/27/20 07:08 01/27/20 07:08 Labs: Abnormal Lab Results - Last 24 Hours (Table) 01/26/20 01/26/20 01/26/20 Range/Units 16:51 16:51 18:29 RBC 4.05 L (4.30-5.90) m/uL Hgb 11.2 L (13.0-17.5) gm/dL Hct 34.0 L (39.0-53.0) % RDW 17.5 H (11.5-15.5) % Lymphocytes # 0.7 L (1.0-4.8) k/uL PT (9.0-12.0) sec INR (<1.2) APTT (22.0-30.0) sec D-Dimer (<0.60) mg/L FEU Sodium 130 L (137-145) mmol/L Chloride 94 L (98-107) mmol/L BUN 25 H (9-20) mg/dL Glucose 182 H (74-99) mg/dL POC Glucose (mg/dL) (75-99) mg/dL Calcium 8.3 L (8.4-10.2) mg/dL C-Reactive Protein (<10.0) mg/L Total Protein 6.1 L (6.3-8.2) g/dL Albumin 3.3 L (3.5-5.0) g/dL Procalcitonin (0.02-0.09) ng/mL Urine Protein Trace H (Negative) Urine Blood Large H (Negative) Ur Leukocyte Esterase Large H (Negative) Urine RBC 157 H (0-5) /hpf Urine WBC 45 H (0-5) /hpf Urine Bacteria Many H (None) /hpf Hyaline Casts 6 H (0-2) /lpf Urine Mucus Rare H (None) /hpf 01/26/20 01/26/20 01/26/20 Range/Units 19:44 19:44 19:44 RBC (4.30-5.90) m/uL Hgb (13.0-17.5) gm/dL Hct (39.0-53.0) % RDW (11.5-15.5) % Lymphocytes # (1.0-4.8) k/uL PT 25.2 H (9.0-12.0) sec INR 2.6 H (<1.2) APTT 42.3 H (22.0-30.0) sec D-Dimer 6.10 H (<0.60) mg/L FEU Sodium (137-145) mmol/L Chloride (98-107) mmol/L BUN (9-20) mg/dL Glucose (74-99) mg/dL POC Glucose (mg/dL) (75-99) mg/dL Calcium (8.4-10.2) mg/dL C-Reactive Protein 55.6 H (<10.0) mg/L Total Protein (6.3-8.2) g/dL Albumin (3.5-5.0) g/dL Procalcitonin 0.12 H (0.02-0.09) ng/mL Urine Protein (Negative) Urine Blood (Negative) Ur Leukocyte Esterase (Negative) Urine RBC (0-5) /hpf Urine WBC (0-5) /hpf Urine Bacteria (None) /hpf Hyaline Casts (0-2) /lpf Urine Mucus (None) /hpf 01/27/20 01/27/20 01/27/20 Range/Units 07:08 07:08 07:57 RBC 4.14 L (4.30-5.90) m/uL Hgb 10.9 L (13.0-17.5) gm/dL Hct 35.0 L (39.0-53.0) % RDW 17.5 H (11.5-15.5) % Lymphocytes # 0.9 L (1.0-4.8) k/uL PT (9.0-12.0) sec INR (<1.2) APTT (22.0-30.0) sec D-Dimer (<0.60) mg/L FEU Sodium 132 L (137-145) mmol/L Chloride 96 L (98-107) mmol/L BUN 25 H (9-20) mg/dL Glucose 160 H (74-99) mg/dL POC Glucose (mg/dL) 179 H (75-99) mg/dL Calcium 8.1 L (8.4-10.2) mg/dL C-Reactive Protein (<10.0) mg/L Total Protein (6.3-8.2) g/dL Albumin (3.5-5.0) g/dL Procalcitonin (0.02-0.09) ng/mL Urine Protein (Negative) Urine Blood (Negative) Ur Leukocyte Esterase (Negative) Urine RBC (0-5) /hpf Urine WBC (0-5) /hpf Urine Bacteria (None) /hpf Hyaline Casts (0-2) /lpf Urine Mucus (None) /hpf 01/27/20 01/27/20 Range/Units 11:15 12:09 RBC (4.30-5.90) m/uL Hgb (13.0-17.5) gm/dL Hct (39.0-53.0) % RDW (11.5-15.5) % Lymphocytes # (1.0-4.8) k/uL PT 32.6 H (9.0-12.0) sec INR 3.3 H (<1.2) APTT (22.0-30.0) sec D-Dimer (<0.60) mg/L FEU Sodium (137-145) mmol/L Chloride (98-107) mmol/L BUN (9-20) mg/dL Glucose (74-99) mg/dL POC Glucose (mg/dL) 173 H (75-99) mg/dL Calcium (8.4-10.2) mg/dL C-Reactive Protein (<10.0) mg/L Total Protein (6.3-8.2) g/dL Albumin (3.5-5.0) g/dL Procalcitonin (0.02-0.09) ng/mL Urine Protein (Negative) Urine Blood (Negative) Ur Leukocyte Esterase (Negative) Urine RBC (0-5) /hpf Urine WBC (0-5) /hpf Urine Bacteria (None) /hpf Hyaline Casts (0-2) /lpf Urine Mucus (None) /hpf Microbiology - Last 24 Hours (Table) 01/26/20 18:29 Urine Culture - Preliminary Urine,Voided Thrombosis Risk Factor Assmnt - Choose All That Apply Each Risk Factor Represents 3 Points: Age 75 years or older, History of DVT/PE Thrombosis Risk Factor Assessment Total Risk Factor Score: 6 Thrombosis Risk Factor Assessment Level: High Risk Assessment and Plan Assessment: ASSESSMENT COVID 19 infection Urinary tract infection COPD Type II diet is 's Coronary artery disease DVT Hypertension Hyperlipidemia Hard of hearing Chronic kidney disease stage III Hyperlipidemia glaucoma osteoarthritis Abdominal aortic neuro some of 11.6 cm History of MRSA History of cataract surgery Chronic debility PLAN: Patient received a dose of ceftriaxone and Zithromax in the emergency. As the patient has UTI we'll continue ceftriaxone pending urine cultures. Patient has been restarted on his home medications. Elevated INR of 3.3 this morning, probably hold the dose of Coumadin tonight and recheck PT/INR tomorrow morning. Patient's CODE STATUS is DO NOT RESUSCITATE. Further recommendations to follow depending on the progress of the patient.
[2020-01-28] MEDS: SODIUM CHLORIDE 0.9% 1,000 ML IV SCH (05:27)
[2020-01-28 07:40] LABS: Glucose,Whole Blood 161 mg/dL (75-99)
[2020-01-28] MEDS: polyethylene glycoL 3350 17 GM POWD.PACK PO SCH (07:48)
[2020-01-28] MEDS: INSULIN ASPART (NovoLOG) 100 UNIT/ML VIAL SQ SCH ×4 (08:39→22:52)
[2020-01-28] MEDS: TAMSULOSIN 0.4 MG CAP.ER.24H PO SCH ×2 (08:40→22:52)
[2020-01-28] MEDS: SPIRONOLACTONE 25 MG TAB PO SCH (08:40)
[2020-01-28] MEDS: FUROSEMIDE 40 MG TAB PO SCH (08:40)
[2020-01-28] MEDS: ASPIRIN 81 MG PO SCH (08:40)
[2020-01-28] MEDS: PANTOPRAZOLE 40 MG TABLET PO SCH ×2 (08:40→22:52)
[2020-01-28] MEDS: SENNOSIDES-DOCUSATE SODIUM 1 EACH TAB PO SCH ×2 (08:40→22:51)
[2020-01-28 10:25] LABS: African American GFR (CKD) 106.3 (60.0-200.0); Anion Gap 7.7 mmol/L (4.00-12.00); Calcium 8.4 mg/dL (8.7-10.3); Carbon Dioxide 23.3 mmol/L (21.6-31.8); Non-African American GFR(CKD) 91.7 (60.0-200.0)
[2020-01-28 11:47] LABS: Glucose,Whole Blood 202 mg/dL (75-99)
--- NOTE | 2020-01-28 11:57 | P.PN ---
Subjective Progress Note Date: 01/28/20 Principal diagnosis: COVID 19 positive and UTI Mr. Gasca is an 85-year-old male with a past medical history of COPD, diabetes mellitus, DVT, hearing disorder, hypertension, hyperlipidemia, BPH, GERD, hypertension, hyperlipidemia, coronary artery disease, gout, chronic constipati on, CK D stage III, glaucoma, depression, difficulty ambulating sent in from [facility] facility for being tested for COVID 19. Patient states that he does not have any symptoms and that they send all the patient's in the facility to the hospital who tested positive for Covid. Patient denies having any complaints. Patient is on 3 L of oxygen, he remains asymptomatic. He denies having any cough or difficulty in breathing. He denies having any fevers chills or rigors. Patient denies having any chest pain or palpitations. No bowel pain nausea vomiting or diarrhea. Patient states he has chronic constipation denies having any blood in his stools. Patient denies having any headache, dizziness or neck stiffness. He denies having any weakness of his extremities. Patient states that he generally cannot get out of the bed for the past 3 years since he had been in the retirement. In the ER patient was noted to have large leukocyte esterase and blood in urine. Patient also had a chest x-ray showing small infiltrate and light volume loss in the left lateral lung base. So the patient has been started on ceftriaxone and Zithromax and admitted for further management. On 01/28/2020- patient is comfortably lying in bed appears to be in acute distress. Overnight no acute events reported by nursing staff. Patient denies having any cough or difficulty in breathing. No fevers chills or rigors. No chest pain or palpitations. No abdominal pain nausea vomiting or diarrhea. Patient has a chronic Schmidt's catheter in place. His urine culture is positive for gram-negative bacilli. He is currently on ceftriaxone. On reviewing the vitals, he is afebrile for the past 24 hours. Heart rate in 80s, blood pressure 1 41 x 57 saturating 96% on 3 L of nasal cannula which is his baseline. Active Medications Acetaminophen (Acetaminophen Tab 325 Mg Tab) 650 mg PO Q6HR PRN PRN Reason: Mild Pain or Fever > 100.5 Last Admin: 01/26/20 22:30 Dose: 650 mg Documented by: Aspirin (Aspirin 81 Mg) 81 mg PO DAILY@0700 [facility] Last Admin: 01/28/20 08:40 Dose: 81 mg Documented by: Atorvastatin Calcium (Atorvastatin 20 Mg Tab) 20 mg PO HS@1999 [facility] Last Admin: 01/27/20 22:09 Dose: 20 mg Documented by: Bisacodyl (Bisacodyl 10 Mg Supp) 10 mg RECTAL Q72H PRN PRN Reason: Constipation Fentanyl (Fentanyl 100mcg/Hr Patch) 1 patch TRANSDERM Q72H ALEXANDR Furosemide (Furosemide 40 Mg Tab) 40 mg PO DAILY@1200 [facility] Last Admin: 01/28/20 08:40 Dose: 40 mg Documented by: Furosemide (Furosemide 20 Mg Tab) 20 mg PO DAILY@2100 [facility] Last Admin: 01/27/20 22:09 Dose: 20 mg Documented by: Sodium Chloride (Saline 0.9%) 1,000 mls @ 20 mls/hr IV .Q24H [facility] Last Admin: 01/28/20 05:27 Dose: Not Given Documented by: Ceftriaxone Sodium 1 gm/ (Sodium Chloride) 50 mls @ 100 mls/hr IVPB Q24HR [facility] Last Admin: 01/28/20 08:41 Dose: 100 mls/hr Documented by: Insulin Aspart (Insulin Aspart (Novolog) 100 Unit/Ml Vial) 0 unit SQ [facility]; Protocol Last Admin: 01/28/20 08:39 Dose: 3 unit Documented by: Insulin Detemir (Insulin Detemir (Levemir) 100 Unit/Ml Syr) 80 unit SQ HS@2099 [facility] Last Admin: 01/27/20 22:10 Dose: 80 unit Documented by: Latanoprost (Latanoprost 0.005% Ophth Drops 2.5 Ml Btl) 1 drops BOTH EYES HS@2099 [facility] Last Admin: 01/27/20 22:23 Dose: 1 drops Documented by: Lorazepam (Lorazepam 2 Mg/Ml Inj) 0.5 mg IV Q6HR PRN PRN Reason: Anxiety Last Admin: 01/28/20 02:51 Dose: 0.5 mg Documented by: Melatonin (Melatonin 5 Mg Tablet) 5 mg PO HS@1999 [facility] Last Admin: 01/27/20 22:09 Dose: 5 mg Documented by: Miscellaneous Information (Warfarin Per Pharmacy) 1 each MISCELLANE DIRECTED PRN PRN Reason: Per Protocol Montelukast Sodium (Montelukast 10 Mg Tab) 10 mg PO Q24H PRN PRN Reason: allergic rhinitis Naloxone HCl (Naloxone 0.4 Mg/Ml 1 Ml Vial) 0.2 mg IV Q2M PRN PRN Reason: Opioid Reversal Ondansetron HCl (Ondansetron 4 Mg/2 Ml Vial) 4 mg IVP Q8HR PRN PRN Reason: Nausea And Vomiting Pantoprazole Sodium (Pantoprazole 40 Mg Tablet) 40 mg PO BID@ [facility] Last Admin: 01/28/20 08:40 Dose: 40 mg Documented by: Polyethylene Glycol (Polyethylene Glycol 3350 17 Gm Powd.Pack) 17 gm PO [place] Y@699 [facility] Last Admin: 01/28/20 07:48 Dose: Not Given Documented by: Senna/Docusate Sodium (Sennosides-Docusate Sodium 1 Each Tab) 2 each PO BID@699,2099 [facility] Last Admin: 01/28/20 08:40 Dose: 2 each Documented by: Sertraline HCl (Sertraline 25 Mg Tab) 25 mg PO DAILY@1999 [facility] Last Admin: 01/27/20 22:10 Dose: 25 mg Documented by: Simethicone (Simethicone 80 Mg Chewable) 240 mg PO Q6H PRN PRN Reason: GI Upset Sodium Biphosphate/Sodium Phosphate (Na Phos,M-B/Na Phos,Di-Ba 133 Ml Enema) 133 ml RECTAL Q96H PRN PRN Reason: Constipation Spironolactone (Spironolactone 25 Mg Tab) 25 mg PO DAILY@699 [facility] Last Admin: 01/28/20 08:40 Dose: 25 mg Documented by: Tamsulosin HCl (Tamsulosin 0.4 Mg Cap.Er.24h) 0.4 mg PO BID@ [facility] Last Admin: 01/28/20 08:40 Dose: 0.4 mg Documented by: Objective - Vital Signs Vital signs: Vital Signs Temp 97.9 F 01/28/20 04:57 Pulse 83 01/28/20 04:57 Resp 18 01/28/20 08:00 BP 141/57 01/28/20 04:57 Pulse Ox 96 01/28/20 04:57 Intake & Output 10/31/20 11/01/20 11/01/20 19:59 06:59 18:59 Intake Total Output Total Balance Intake: Intake, IV Titration Amount Sodium Chloride 0.9% 1, 000 ml @ 20 mls/hr IV . Q24H [facility] Rx#:[id number] cefTRIAXone 1 gm In Sodium Chloride 0.9% 50 ml @ 100 mls/hr IVPB Q24HR [facility] Rx#:[id number] Oral Output: Urine Other: Voiding Method Indwelling Catheter # Voids - Exam GEN. APPEARANCE: alert, in no apparent distress HEAD EXAM: atraumatic, normocephalic, normal inspection EYE EXAM: No pallor. No icterus. RESPIRATORY EXAM: Diminished air entry bilaterally, decreased lung sounds bilaterally. No wheezes or crackles CARDIOVASCULAR EXAM: S1 and S2 heard. No additional sounds. GI/ABDOMINAL EXAM: soft, normal bowel sounds. Soft nontender. EXTREMITIES EXAM: no edema BACK- Stage 3 sacral decubitus ulcer NEUROLOGICAL EXAM: alert, oriented X3, no focal deficits PSYCHIATRIC EXAM: normal affect, normal mood - Labs CBC & Chem 7: 01/28/20 07:07 01/28/20 07:07 Labs: Abnormal Lab Results - Last 24 Hours (Table) 01/27/20 01/27/20 01/28/20 Range/Units 16:59 20:31 07:07 WBC 10.8 H (3.8-10.6) k/uL Neutrophils # 9.0 H (1.3-7.7) k/uL BUN/Creatinine Ratio (12.00-20.00) Ratio POC Glucose (mg/dL) 201 H 202 H (75-99) mg/dL Calcium (8.7-10.3) mg/dL 01/28/20 01/28/20 01/28/20 Range/Units 07:07 07:35 11:44 WBC (3.8-10.6) k/uL Neutrophils # (1.3-7.7) k/uL BUN/Creatinine Ratio 30.00 H (12.00-20.00) Ratio POC Glucose (mg/dL) 161 H 202 H (75-99) mg/dL Calcium 8.4 L (8.7-10.3) mg/dL Microbiology - Last 24 Hours (Table) 01/26/20 18:29 Urine Culture - Preliminary Urine,Voided Gram Neg Bacilli 01/26/20 17:44 Blood Culture - Preliminary Blood No Growth after 24 hours Assessment and Plan Assessment: ASSESSMENT COVID 19 infection Urinary tract infection COPD Type II diet is 's Coronary artery disease DVT Hypertension Hyperlipidemia Hard of hearing Chronic kidney disease stage III Hyperlipidemia glaucoma osteoarthritis Abdominal aortic neuro some of 11.6 cm History of MRSA History of cataract surgery Chronic debility PLAN: Continue with ceftriaxone as her urine cultures are positive for gram- negative bacilli. We will exchange Schmidt's catheter today. Patient has stage III sacral decubitus ulcer, we'll consult wound care and advised pressure offloading. Patient has been restarted on his home medications. Elevated INR of 3.3 yesterday, this morning his INR this 1.01. We'll repeat PT/INR, and adjust the dose of Coumadin depending upon it. Patient's CODE STATUS is DO NOT RESUSCITATE. Further recommendations to follow depending on the progress of the patient.
[2020-01-28 14:56] LABS: INR 2.9 (<1.2); Prothrombin Time 28.6 sec (9.0-12.0)
[2020-01-28 17:25] LABS: Glucose,Whole Blood 167 mg/dL (75-99)
[2020-01-28] MEDS ORDERED: WARFARIN 3 MG TAB PO ONE (18:00)
[2020-01-28 20:41] LABS: Glucose,Whole Blood 213 mg/dL (75-99)
[2020-01-28] MEDS: SERTRALINE 25 MG TAB PO SCH (22:51)
[2020-01-28] MEDS: FUROSEMIDE 20 MG TAB PO SCH (22:52)
[2020-01-28] MEDS: MELATONIN 5 MG TABLET PO SCH (22:52)
[2020-01-28] MEDS: ATORVASTATIN 20 MG TAB PO SCH (22:52)
[2020-01-28] MEDS: ACETAMINOPHEN TAB 325 MG TAB PO PRN (23:01)
[2020-01-28] MEDS: INSULIN DETEMIR (LEVEMIR) 100 UNIT/ML SYR SQ SCH (23:27)
[2020-01-28] MEDS: LATANOPROST 0.005% OPHTH DROPS 2.5 ML BTL BOTH EYES SCH (23:30)
[2020-01-29 06:13] LABS: Anisocytosis Slight; Basophils % (A) 1 %; Eosinophils # (A) 0.3 k/uL (0-0.7); Eosinophils % (A) 5 %; HCT 31.6 % (39.0-53.0); Hypochromasia Slight; Lymphocytes # (A) 1.4 k/uL (1.0-4.8); Lymphocytes % (A) 25 %; MCH 27.7 pg (25.0-35.0); MCHC 32.5 g/dL (31.0-37.0); Mean Platelet Volume 7.1; Monocytes # (A) 0.4 k/uL (0-1.0); Monocytes % (A) 6 %; Neutrophils # (A) 3.6 k/uL (1.3-7.7); Neutrophils % (A) 62 %; Platelet Count 198 k/uL (150-450); Poikilocytosis Slight; RBC 3.71 m/uL (4.30-5.90); RDW 17.6 % (11.5-15.5); WBC 5.7 k/uL (3.8-10.6)
[2020-01-29] MEDS: SODIUM CHLORIDE 0.9% 1,000 ML IV SCH ×2 (06:20→22:25)
[2020-01-29 06:30] LABS: HGB 10.3 gm/dL (13.0-17.5)
[2020-01-29 07:42] LABS: Glucose,Whole Blood 151 mg/dL (75-99)
[2020-01-29] MEDS: polyethylene glycoL 3350 17 GM POWD.PACK PO SCH (09:43)
[2020-01-29] MEDS: INSULIN ASPART (NovoLOG) 100 UNIT/ML VIAL SQ SCH ×4 (09:44→22:27)
[2020-01-29] MEDS: SPIRONOLACTONE 25 MG TAB PO SCH (09:44)
[2020-01-29] MEDS: SENNOSIDES-DOCUSATE SODIUM 1 EACH TAB PO SCH ×2 (09:44→22:24)
[2020-01-29] MEDS: PANTOPRAZOLE 40 MG TABLET PO SCH ×2 (09:44→22:23)
[2020-01-29] MEDS: ASPIRIN 81 MG PO SCH (09:44)
[2020-01-29] MEDS: TAMSULOSIN 0.4 MG CAP.ER.24H PO SCH ×2 (09:44→22:23)
[2020-01-29 10:09] LABS: INR 2.72 (0.90-1.11)
[2020-01-29 12:21] LABS: Glucose,Whole Blood 182 mg/dL (75-99)
[2020-01-29] MEDS: FUROSEMIDE 40 MG TAB PO SCH (13:07)
[2020-01-29 17:51] LABS: Glucose,Whole Blood 225 mg/dL (75-99)
[2020-01-29] MEDS ORDERED: WARFARIN 3 MG TAB PO ONE (18:00)
[2020-01-29 20:07] LABS: Glucose,Whole Blood 219 mg/dL (75-99)
[2020-01-29] MEDS: MELATONIN 5 MG TABLET PO SCH (22:23)
[2020-01-29] MEDS: ATORVASTATIN 20 MG TAB PO SCH (22:23)
[2020-01-29] MEDS: FUROSEMIDE 20 MG TAB PO SCH (22:23)
[2020-01-29 22:24] LABS: Glucose,Whole Blood 164 mg/dL (75-99)
[2020-01-29] MEDS: INSULIN DETEMIR (LEVEMIR) 100 UNIT/ML SYR SQ SCH (22:24)
[2020-01-29] MEDS: SERTRALINE 25 MG TAB PO SCH (22:24)
[2020-01-29] MEDS: LATANOPROST 0.005% OPHTH DROPS 2.5 ML BTL BOTH EYES SCH (22:25)
--- NOTE | 2020-01-30 01:09 | P.PN ---
Subjective Progress Note Date: 01/29/20 Principal diagnosis: COVID 19 positive and UTI Mr. Gasca is an 85-year-old male with a past medical history of COPD, diabetes mellitus, DVT, hearing disorder, hypertension, hyperlipidemia, BPH, GERD, hypertension, hyperlipidemia, coronary artery disease, gout, chronic constipati on, CK D stage III, glaucoma, depression, difficulty ambulating sent in from [facility] facility for being tested for COVID 19. Patient states that he does not have any symptoms and that they send all the patient's in the facility to the hospital who tested positive for Covid. Patient denies having any complaints. Patient is on 3 L of oxygen, he remains asymptomatic. He denies having any cough or difficulty in breathing. He denies having any fevers chills or rigors. Patient denies having any chest pain or palpitations. No bowel pain nausea vomiting or diarrhea. Patient states he has chronic constipation denies having any blood in his stools. Patient denies having any headache, dizziness or neck stiffness. He denies having any weakness of his extremities. Patient states that he generally cannot get out of the bed for the past 3 years since [facility]. In the ER patient was noted to have large leukocyte esterase and blood in urine. Patient also had a chest x-ray showing small infiltrate and light volume loss in the left lateral lung base. So the patient has been started on ceftriaxone and Zithromax and admitted for further management. On 01/28/2020- patient is comfortably lying in bed appears to be in acute distress. Overnight no acute events reported by nursing staff. Patient denies having any cough or difficulty in breathing. No fevers chills or rigors. No chest pain or palpitations. No abdominal pain nausea vomiting or diarrhea. Patient has a chronic Schmidt's catheter in place. His urine culture is positive for gram-negative bacilli. He is currently on ceftriaxone. On reviewing the vitals, he is afebrile for the past 24 hours. Heart rate in 80s, blood pressure 1 41 x 57 saturating 96% on 3 L of nasal cannula which is his baseline. On 01/29/2020 -patient is comfortably lying in bed appears to be no acute distress. Overnight no acute events reported by nursing staff. Patient states that he is eager about his COVID-19 results. Patient denies having any chest pain or palpitations. No cough or difficulty in breathing. No nausea , adbominal pain or diarrhea. On reviewing his vitals T-max in the past 24 hours 98.6. Saturating at 97% on 3 L of oxygen, heart rate 85, respiratory rate 20. Blood pressure 145 x 109. On reviewing his labs white count of 5.7 hemoglobin 10.3 platelets of 198. INR of 2.72. His coronavirus results are still pending. Active Medications Acetaminophen (Acetaminophen Tab 325 Mg Tab) 650 mg PO Q6HR PRN PRN Reason: Mild Pain or Fever > 100.5 Last Admin: 01/28/20 23:01 Dose: 650 mg Documented by: Aspirin (Aspirin 81 Mg) 81 mg PO DAILY@0700 [facility] Last Admin: 01/29/20 09:44 Dose: 81 mg Documented by: Atorvastatin Calcium (Atorvastatin 20 Mg Tab) 20 mg PO HS@2000 [facility] Last Admin: 01/29/20 22:23 Dose: 20 mg Documented by: Bisacodyl (Bisacodyl 10 Mg Supp) 10 mg RECTAL Q72H PRN PRN Reason: Constipation Fentanyl (Fentanyl 100mcg/Hr Patch) 1 patch TRANSDERM Q72H [facility] Last Admin: 01/28/20 14:16 Dose: 1 patch Documented by: Furosemide (Furosemide 40 Mg Tab) 40 mg PO DAILY@1200 [facility] Last Admin: 01/29/20 13:07 Dose: 40 mg Documented by: Furosemide (Furosemide 20 Mg Tab) 20 mg PO DAILY@2100 [facility] Last Admin: 01/29/20 22:23 Dose: 20 mg Documented by: Sodium Chloride (Saline 0.9%) 1,000 mls @ 20 mls/hr IV .Q24H [facility] Last Admin: 01/29/20 22:25 Dose: 20 mls/hr Documented by: Ceftriaxone Sodium 1 gm/ (Sodium Chloride) 50 mls @ 100 mls/hr IVPB Q24HR [facility] Last Admin: 01/29/20 09:44 Dose: 100 mls/hr Documented by: Insulin Aspart (Insulin Aspart (Novolog) 100 Unit/Ml Vial) 0 unit SQ [facility]; Protocol Last Admin: 01/29/20 22:27 Dose: 3 unit Documented by: Insulin Detemir (Insulin Detemir (Levemir) 100 Unit/Ml Syr) 80 unit SQ HS@2100 [facility] Last Admin: 01/29/20 22:24 Dose: 80 unit Documented by: Latanoprost (Latanoprost 0.005% Ophth Drops 2.5 Ml Btl) 1 drops BOTH EYES HS@2099 [facility] Last Admin: 01/29/20 22:25 Dose: 1 drops Documented by: Lorazepam (Lorazepam 2 Mg/Ml Inj) 0.5 mg IV Q6HR PRN PRN Reason: Anxiety Last Admin: 01/28/20 02:51 Dose: 0.5 mg Documented by: Melatonin (Melatonin 5 Mg Tablet) 5 mg PO HS@1999 [facility] Last Admin: 01/29/20 22:23 Dose: 5 mg Documented by: Miscellaneous Information (Warfarin Per Pharmacy) 1 each MISCELLANE DIRECTED PRN PRN Reason: Per Protocol Montelukast Sodium (Montelukast 10 Mg Tab) 10 mg PO Q24H PRN PRN Reason: allergic rhinitis Naloxone HCl (Naloxone 0.4 Mg/Ml 1 Ml Vial) 0.2 mg IV Q2M PRN PRN Reason: Opioid Reversal Ondansetron HCl (Ondansetron 4 Mg/2 Ml Vial) 4 mg IVP Q8HR PRN PRN Reason: Nausea And Vomiting Pantoprazole Sodium (Pantoprazole 40 Mg Tablet) 40 mg PO BID@ [facility] Last Admin: 01/29/20 22:23 Dose: 40 mg Documented by: Polyethylene Glycol (Polyethylene Glycol 3350 17 Gm Powd.Pack) 17 gm PO DAILY@699 [facility] Last Admin: 01/29/20 09:43 Dose: 17 gm Documented by: Senna/Docusate Sodium (Sennosides-Docusate Sodium 1 Each Tab) 2 each PO BID@699,2099 [facility] Last Admin: 01/29/20 22:24 Dose: 2 each Documented by: Sertraline HCl (Sertraline 25 Mg Tab) 25 mg PO DAILY@1999 [facility] Last Admin: 01/29/20 22:24 Dose: 25 mg Documented by: Simethicone (Simethicone 80 Mg Chewable) 240 mg PO Q6H PRN PRN Reason: GI Upset Sodium Biphosphate/Sodium Phosphate (Na Phos,M-B/Na Phos,Di-Ba 133 Ml Enema) 133 ml RECTAL Q96H PRN PRN Reason: Constipation Spironolactone (Spironolactone 25 Mg Tab) 25 mg PO DAILY@0700 [facility] Last Admin: 01/29/20 09:44 Dose: 25 mg Documented by: Tamsulosin HCl (Tamsulosin 0.4 Mg Cap.Er.24h) 0.4 mg PO BID@699,1999 [facility] Last Admin: 01/29/20 22:23 Dose: 0.4 mg Documented by: Objective - Vital Signs Vital signs: Vital Signs Temp 98.3 F 01/29/20 05:00 Pulse 84 01/29/20 05:00 Resp 14 01/29/20 05:00 BP 141/59 01/29/20 05:00 Pulse Ox 96 01/29/20 05:00 Intake & Output 01/28/20 01/29/20 01/29/20 18:59 06:59 18:59 Intake Total 400 660 Output Total 800 Balance -400 660 Weight 167.149 kg Intake: Intake, IV Titration 100 160 Amount Sodium Chloride 0.9% 1, 160 000 ml @ 20 mls/hr IV . Q24H [facility] Rx#:[id number] cefTRIAXone 1 gm In 100 Sodium Chloride 0.9% 50 ml @ 100 mls/hr IVPB Q24HR [facility] Rx#:[id number] Oral 300 500 Output: Urine 800 Other: Voiding Method Indwelling Catheter Indwelling Catheter Indwelling Catheter # Bowel Movements 1 - Exam GEN. APPEARANCE: alert, in no apparent distress HEAD EXAM: atraumatic, normocephalic, normal inspection EYE EXAM: No pallor. No icterus. RESPIRATORY EXAM: Diminished air entry bilaterally, decreased lung sounds bilaterally. No wheezes or crackles CARDIOVASCULAR EXAM: S1 and S2 heard. No additional sounds. GI/ABDOMINAL EXAM: soft, normal bowel sounds. Soft nontender. EXTREMITIES EXAM: no edema BACK- Stage 3 sacral decubitus ulcer NEUROLOGICAL EXAM: alert, oriented X3, no focal deficits PSYCHIATRIC EXAM: normal affect, normal mood - Labs CBC & Chem 7: 01/29/20 05:44 01/28/20 07:07 Labs: Abnormal Lab Results - Last 24 Hours (Table) 01/28/20 01/28/20 01/28/20 Range/Units 11:44 14:20 17:08 RBC (4.30-5.90) m/uL Hgb (13.0-17.5) gm/dL Hct (39.0-53.0) % RDW (11.5-15.5) % PT 28.6 H (9.0-12.0) sec INR 2.9 H (<1.2) POC Glucose (mg/dL) 202 H 167 H (75-99) mg/dL 01/28/20 01/29/20 01/29/20 Range/Units 20:40 05:44 05:44 RBC 3.71 L (4.30-5.90) m/uL Hgb 10.3 L D (13.0-17.5) gm/dL Hct 31.6 L (39.0-53.0) % RDW 17.6 H (11.5-15.5) % PT 28.0 H (9.0-12.0) sec INR 2.72 H (<1.2) POC Glucose (mg/dL) 213 H (75-99) mg/dL 01/29/20 Range/Units 07:35 RBC (4.30-5.90) m/uL Hgb (13.0-17.5) gm/dL Hct (39.0-53.0) % RDW (11.5-15.5) % PT (9.0-12.0) sec INR (<1.2) POC Glucose (mg/dL) 151 H (75-99) mg/dL Microbiology - Last 24 Hours (Table) 01/26/20 18:29 Urine Culture - Final Urine,Voided Proteus mirabilis 01/26/20 17:44 Blood Culture - Preliminary Blood No Growth after 48 hours Assessment and Plan Assessment: ASSESSMENT COVID 19 infection Urinary tract infection COPD Type II diet is 's Coronary artery disease DVT Hypertension Hyperlipidemia Hard of hearing Chronic kidney disease stage III Hyperlipidemia glaucoma osteoarthritis Abdominal aortic neuro some of 11.6 cm History of MRSA History of cataract surgery Chronic debility PLAN: Pt clinically remains stable, no new symptoms. Continue with ceftriaxone as her urine cultures are positive for Proteus mirablis . Patient has stage III sacral decubitus ulcer, we'll consult wound care and advised pressure offloading. COVID 19 results pending. Patient's CODE STATUS is DO NOT RESUSCITATE. Further recommendations to follow depending on the progress of the patient.
[2020-01-30 06:34] LABS: Anisocytosis Slight; Basophils # (A) 0.1 k/uL (0-0.2); Basophils % (A) 1 %; Eosinophils # (A) 0.2 k/uL (0-0.7); Eosinophils % (A) 2 %; HCT 33.6 % (39.0-53.0); HGB 10.5 gm/dL (13.0-17.5); Hypochromasia Slight; Lymphocytes # (A) 1.1 k/uL (1.0-4.8); Lymphocytes % (A) 15 %; MCH 26.8 pg (25.0-35.0); MCHC 31.3 g/dL (31.0-37.0); MCV 85.6 fL (80.0-100.0); Monocytes # (A) 0.4 k/uL (0-1.0); Monocytes % (A) 5 %; Neutrophils # (A) 5.7 k/uL (1.3-7.7); Neutrophils % (A) 75 %; Platelet Count 212 k/uL (150-450); Poikilocytosis Slight; RBC 3.93 m/uL (4.30-5.90); RDW 17.6 % (11.5-15.5); WBC 7.5 k/uL (3.8-10.6)
[2020-01-30 07:20] LABS: Glucose,Whole Blood 132 mg/dL (75-99)
[2020-01-30 09:05] LABS: African American GFR (CKD) 89.9 (60.0-200.0); Albumin 3.5 g/dL (3.80-4.90); Albumin/Globulin Ratio 1.59 (1.60-3.17); Anion Gap 7.4 mmol/L (4.00-12.00); BUN/Creat Ratio 23.33 Ratio (12.00-20.00); C Reactive Protein 5.5 mg/dL (0.0-0.8); Calcium 8.2 mg/dL (8.7-10.3); Carbon Dioxide 30.6 mmol/L (21.6-31.8); Globulin 2.2 g/dL (1.6-3.3); INR 2.34 (0.90-1.11); Non-African American GFR(CKD) 77.6 (60.0-200.0); Potassium 3.9 mmol/L (3.5-5.5); Prothrombin Time 24.2 sec (9.9-11.9); Total Bilirubin 0.4 mg/dL (0.3-1.2); Total Protein 5.7 g/dL (6.2-8.2)
[2020-01-30] MEDS: SENNOSIDES-DOCUSATE SODIUM 1 EACH TAB PO SCH ×2 (09:10→20:44)
[2020-01-30] MEDS: TAMSULOSIN 0.4 MG CAP.ER.24H PO SCH ×2 (09:10→19:56)
[2020-01-30] MEDS: PANTOPRAZOLE 40 MG TABLET PO SCH ×2 (09:10→19:56)
[2020-01-30] MEDS: SPIRONOLACTONE 25 MG TAB PO SCH (09:10)
[2020-01-30] MEDS: polyethylene glycoL 3350 17 GM POWD.PACK PO SCH (09:11)
[2020-01-30] MEDS: ASPIRIN 81 MG PO SCH (09:11)
[2020-01-30] MEDS: INSULIN ASPART (NovoLOG) 100 UNIT/ML VIAL SQ SCH ×4 (09:12→20:44)
[2020-01-30] MEDS: FUROSEMIDE 40 MG TAB PO SCH (09:13)
--- NOTE | 2020-01-30 10:01 | XR ---
EXAMINATION TYPE: XR chest 1V portable DATE OF EXAM: 01/30/2020 Comparison: 01/26/2020 Clinical History: 85-year-old male Suspected COVID-19 pneumonia Findings: Leftward patient rotation alters the normal cardiomediastinal contours. Heart mildly enlarged. Patchy peripheral right midlung opacity. Patchy peripheral left basilar opacity. The right midlung density has slightly worsened. The left costophrenic angle is underpenetrated and not well assessed. Impression: Rotated exam. Some patchy peripheral densities right midlung and left base. Mild infiltrates includin g the possibility of early atypical pneumonia not excluded.
[2020-01-30 10:40] LABS: D-Dimer 6.97 mg/L FEU (<0.60)
--- NOTE | 2020-01-30 11:08 | P.CONS ---
History of Present Illness - Reason for Consult Consult date: 01/30/20 - History of Present Illness this is an 85-year-old gentleman who resides at [facility] being seen by the wound care center for a nonhealing ulceration to the coccyx. Patient states that the ulceration has been there for approximately 3-4 years. They've been using a cream to the site is daily. Patient has inability to offload. He is also incontinent of urine and stool. Patient has medical histo ry significant for COPD, diabetes, DVT,hyper lipidemia, hypertension, pulmonary embolism, stage III chronic kidney disease. He is not a smoker. Review of Systems Review Of Systems: Constitutional: No fever, no chills, no night sweats. No weight change. No weakness, fatigue or lethargy. No daytime sleepiness. Integumentary:reports wounds, no lesions. No rash or pruritus. No unusual bruising. No change in hair or nails. 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 Patient also is known to have abdominal aortic aneurysm- 11.6 cm. History of Any Multi-Drug Resistant Organisms: MRSA Year Discovered:: 03/27/18 MDRO Source:: SPUTUM MRSA Past Surgical History: Appendectomy, Hernia Repair, Tonsillectomy Additional Past Surgical History / Comment(s): cataract, hydrocele, :9 stents in legs/ 2 aortic stents", rt ext iliac stent 05/29/16 at [place] Past Anesthesia/Blood Transfusion Reactions: No Reported Reaction Past Psychological History: No Psychological Hx Reported Smoking Status: Never smoker Past Alcohol Use History: None Reported Past Drug Use History: None Reported - Past Family History Mother Family Medical History: Cancer Additional Family Medical History / Comment(s): open heart surgery, CA ovarian and liver, lyme disease Medications and Allergies Home Medications Medication Instructions Recorded Confirmed Type Atorvastatin [Lipitor] 20 mg PO HS@199908/20/16 01/26/20 History Budesonide [Pulmicort] 0.5 mg INHALATION RT-BID@699,169908/20/16 01/26/20 History Tamsulosin HCl [Flomax] 0.4 mg PO BID@699,199908/20/16 01/26/20 History Acetaminophen Tab [Tylenol] 650 mg PO Q6H PRN 12/29/17 01/26/20 History Melatonin 5 mg PO HS@199912/29/17 01/26/20 History Brimonidine Tartrate [Alphagan P 1 drops BOTH EYES BID@0500,169907/02/19 01/26/20 History 0.1% Ophth Soln] Insulin Detemir [Levemir Flextouch] 80 units SQ HS@209907/02/19 01/26/20 History Latanoprost/Pf [Latanoprost 0.005% 1 drop BOTH EYES HS@209907/02/19 01/26/20 History Eye Drop] Liquacel (Amino Acids) 30 ml PO DAILY@69907/02/19 01/26/20 History Losartan [Cozaar] 25 mg PO DAILY@69907/02/19 01/26/20 History Multivitamins, Thera [Multivitamin 1 tab PO DAILY@69907/02/19 01/26/20 History (formulary)] Polyethylene Glycol 3350 [Miralax] 17 gm PO DAILY@69907/02/19 01/26/20 History Sertraline HCl [Zoloft] 25 mg PO DAILY@199907/02/19 01/26/20 History Spironolactone [Aldactone] 25 mg PO DAILY@69907/02/19 01/26/20 History Aspirin 81 mg PO DAILY@699 #0 07/04/19 01/26/20 Rx Bisacodyl 10 mg PO Q48H PRN 01/26/20 01/26/20 History Dextran 70/Hypromellose [Genteal 1 drop BOTH EYES BID@699,199901/26/20 01/26/20 History Tears 0.1%-0.3% Drop] Furosemide [Lasix] 20 mg PO DAILY@209901/26/20 01/26/20 History Furosemide [Lasix] 40 mg PO DAILY@119901/26/20 01/26/20 History Insulin Aspart [NovoLOG Flexpen] See Protocol SQ ACHS@07,12,17,01/26/20 01/26/20 History Ipratropium-Albuterol Nebulize 3 ml INHALATION RT-TID@05,12,18 01/26/20 01/26/20 History [Duoneb 0.5 mg-3 mg/3 ml Soln] Mag Hydrox/Aluminum Hyd/Simeth 10 ml PO Q4H PRN 01/26/20 01/26/20 History [Mylanta Maximum Strength Liq] Magnesium Hydroxide [Milk of 2,400 mg PO DAILY@119901/26/20 01/26/20 History Magnesia] Magnesium Hydroxide [Milk of 2,400 mg PO Q4HR PRN 01/26/20 01/26/20 History Magnesia] Menthol [Nice Cough Drops] 1 lozenge BUCCAL Q4H PRN 01/26/20 01/26/20 History Montelukast Sodium [Singulair] 10 mg PO Q24H PRN 01/26/20 01/26/20 History Na Phos,M-B/Na Phos,Di-Ba [Fleet 133 ml RECTAL Q96H PRN 01/26/20 01/26/20 History Adult] Ondansetron [Zofran] 4 mg PO Q6H PRN 01/26/20 01/26/20 History Pantoprazole Sodium [Protonix] 40 mg PO BID@0700,199901/26/20 01/26/20 History Sennosides-Docusate Sodium 2 tab PO BID@0700,209901/26/20 01/26/20 History [Senokot-S] Simethicone [Gas-X] 250 mg PO Q6H PRN 01/26/20 01/26/20 History Sulfamethox-Tmp 800-160Mg [Bactrim 1 tab PO DAILY@1300 01/26/20 01/26/20 History DS 800-160 mg] Warfarin Sodium 6 mg PO HS@209901/26/20 01/26/20 History Warfarin [Coumadin] 3 mg PO HS@209901/26/20 01/26/20 History bisacodyL [Dulcolax] 10 mg RECTAL Q72H PRN 01/26/20 01/26/20 History fentaNYL 100MCG/HR PATCH 1 patch TRANSDERM Q72H 01/26/20 01/26/20 History [Duragesic 100MCG/HR] guaiFENesin [Diabetic Tussin Ex] 200 mg PO Q4H PRN 01/26/20 01/26/20 History Allergies Allergy/AdvReac Type Severity Reaction Status Date / Time No Known Allergies Allergy Verified 01/26/20 16:35 Physical Exam Vitals: Vital Signs Temp Pulse Resp BP BP Pulse Ox 01/30/20 04:34 99.0 F 81 16 129/50 96 01/29/20 22:36 98.6 F 82 20 135/57 94 L 01/29/20 21:00 97.7 F 85 20 145/109 97 01/29/20 13:00 98.1 F 74 18 124/54 98 Intake and Output 01/29/20 01/30/20 01/30/20 22:59 06:59 14:59 Intake Total 1100 Output Total 350 275 Balance 750 -275 Intake: Oral 1100 Output: Urine 350 275 Other: Voiding Method Indwelling Catheter Indwelling Catheter # Bowel Movements 1 Weight 167 kg Physical exam: General Appearance: Alert, cooperative, no distress, appears stated age. Skin: full thickness stage II pressure ulcer of the coccyx. With fat layer exposure, granulation seen throughout wound bed with minimal slough. S erosanguineous drainage noted. Periwound shows maceration and excoriation. Left lower extremity proximal to groin shows maceration no open lesions.all other Skin color, texture, tugor normal, no rashes or lesions. Neurologic: Alert oriented x3 Results CBC & Chem 7: 01/30/20 05:59 01/30/20 05:59 Labs: Abnormal Lab Results - Last 24 Hours (Table) 01/26/20 01/29/20 01/29/20 Range/Units 18:34 05:44 12:16 RBC 3.71 L (4.30-5.90) m/uL Hgb 10.3 L (13.0-17.5) gm/dL Hct 31.6 L (39.0-53.0) % RDW 17.6 H (11.5-15.5) % PT (9.9-11.9) sec INR (0.90-1.11) Fibrinogen (200-500) mg/dL D-Dimer (<0.60) mg/L FEU BUN/Creatinine Ratio (12.00-20.00) Ratio Glucose (70-110) mg/dL POC Glucose (mg/dL) 182 H (75-99) mg/dL Calcium (8.7-10.3) mg/dL C-Reactive Protein (0.0-0.8) mg/dL Total Protein (6.2-8.2) g/dL Albumin (3.80-4.90) g/dL Albumin/Globulin Ratio (1.60-3.17) g/dL Coronavirus (PCR) Detected A (Not Detected) 01/29/20 01/29/20 01/29/20 Range/Units 17:48 20:06 22:22 RBC (4.30-5.90) m/uL Hgb (13.0-17.5) gm/dL Hct (39.0-53.0) % RDW (11.5-15.5) % PT (9.9-11.9) sec INR (0.90-1.11) Fibrinogen (200-500) mg/dL D-Dimer (<0.60) mg/L FEU BUN/Creatinine Ratio (12.00-20.00) Ratio Glucose (70-110) mg/dL POC Glucose (mg/dL) 225 H 219 H 164 H (75-99) mg/dL Calcium (8.7-10.3) mg/dL C-Reactive Protein (0.0-0.8) mg/dL Total Protein (6.2-8.2) g/dL Albumin (3.80-4.90) g/dL Albumin/Globulin Ratio (1.60-3.17) g/dL Coronavirus (PCR) (Not Detected) 01/30/20 01/30/20 01/30/20 Range/Units 05:59 05:59 05:59 RBC 3.93 L (4.30-5.90) m/uL Hgb 10.5 L (13.0-17.5) gm/dL Hct 33.6 L (39.0-53.0) % RDW 17.6 H (11.5-15.5) % PT 24.2 H (9.9-11.9) sec INR 2.34 H (0.90-1.11) Fibrinogen (200-500) mg/dL D-Dimer (<0.60) mg/L FEU BUN/Creatinine Ratio 23.33 H (12.00-20.00) Ratio Glucose 129 H (70-110) mg/dL POC Glucose (mg/dL) (75-99) mg/dL Calcium 8.2 L (8.7-10.3) mg/dL C-Reactive Protein 5.5 H (0.0-0.8) mg/dL Total Protein 5.7 L (6.2-8.2) g/dL Albumin 3.50 L (3.80-4.90) g/dL Albumin/Globulin Ratio 1.59 L (1.60-3.17) g/dL Coronavirus (PCR) (Not Detected) 01/30/20 01/30/20 Range/Units 07:18 09:50 RBC (4.30-5.90) m/uL Hgb (13.0-17.5) gm/dL Hct (39.0-53.0) % RDW (11.5-15.5) % PT (9.9-11.9) sec INR (0.90-1.11) Fibrinogen 528 H (200-500) mg/dL D-Dimer 6.97 H (<0.60) mg/L FEU BUN/Creatinine Ratio (12.00-20.00) Ratio Glucose (70-110) mg/dL POC Glucose (mg/dL) 132 H (75-99) mg/dL Calcium (8.7-10.3) mg/dL C-Reactive Protein (0.0-0.8) mg/dL Total Protein (6.2-8.2) g/dL Albumin (3.80-4.90) g/dL Albumin/Globulin Ratio (1.60-3.17) g/dL Coronavirus (PCR) (Not Detected) Microbiology - Last 24 Hours (Table) 01/26/20 17:44 Blood Culture - Preliminary Blood No Growth after 72 hours Assessment and Plan (1) Pressure ulcer of sacral region, stage 2 Current Visit: Yes Status: Acute Code(s): L89.152 - PRESSURE ULCER OF SACRAL REGION, STAGE 2 SNOMED Code(s): 602707075 (2) Diabetes mellitus with skin ulcer Current Visit: Yes Status: Acute Code(s): E11.622 - TYPE 2 DIABETES MELLITUS WITH OTHER SKIN ULCER; L98.499 - NON-PRESSURE CHRONIC ULCER OF SKIN OF SITES W UNSP SEVERITY SNOMED Code(s): 98495438 (3) Obesity Current Visit: No Status: Acute Code(s): E66.9 - OBESITY, UNSPECIFIED SNOMED Code(s): 157007172 Plan: apply triad to the sacrum ulceration with a foam border gauze. Apply triad to the left lower extremity proximal to groin. Keep area dry. Assess the surface of the rhythm for the appropriate surface. Turn every 2 hours. Continue to work on offloading. Thank you for the consultation any questions please contact the wound care center DNP note has been reviewed and discussed with Dr. Martin and the impression and plan of care has been directed as dictated.
[2020-01-30 11:37] LABS: Glucose,Whole Blood 130 mg/dL (75-99)
[2020-01-30 11:37] LABS: C Reactive Protein 62.6 mg/L (<10.0); Magnesium 1.9 mg/dL (1.6-2.3)
[2020-01-30] MEDS: HYDROPHILIC CREAM 180 GM TUBE TOPICAL SCH (12:44)
[2020-01-30] MEDS ORDERED: AZITHROMYCIN 500 MG in SODIUM CHLORIDE 0.9% 250 ML IVPB SCH (13:00)
--- NOTE | 2020-01-30 15:12 | P.CNPUL ---
History of Present Illness Consult date: 01/30/20 Requesting physician: Shar Piper Chief complaint: Positive: COVD 19 test, urinary tract infection History of present illness: This is a 85-year-old male patient with multiple chronic medical problems, who is a resident of [facility], who tested positive for COVID 19 last Wednesday on 01/26/2020. Apparently patient was asymptomatic, denied any increased shortness of breath, denied any fever or chills, no cough, no chest pain no nausea vomiting or diarrhea. No night sweats, no fevers. No ENT symptoms. Medical history includes diabetes mellitus type 2, hypertension, hyperlipidemia, chronic COPD on the home oxygen at 3 L/m, CAD, difficulty hearing, previous history of pulmonary embolism and DVT maintained on Coumadin, chronic kidney disease stage III, morbid obesity, history of aortic aneurysm with surgical repair, and impaired functional status, and gait dysfunction. Patient has remained asymptomatic while in the hospital, he was positive for a urinary tract infection, urine culture showed Proteus mirabilis. Patient was started on azithromycin and Rocephin. His initial chest x-ray shows coarse interstitial and airspace infiltrates in the left lower lobe, right lung was clear, probable underlying pulmonary fibrosis. Follow-up chest x-ray today shows some patchy peripheral densities in the right midlung and left base likely related to atelectasis, and it was a rotated exam. Patient continues to be asymptomatic, inpatient over 19 PCR also came back positive. Did have some elevated temperatures while in the hospital, last one was 48 hours ago, on 01/28/2020 with a temp of 101.3F, his been afebrile since, hemodynamically stable, he is awake and alert, he is however a poor historian, but appears to be in no acute distress. He is on 3 L of oxygen his pulse ox is 98%, breathing nonlabored. We were asked to see the patient in evaluation for Covid 19 treatment Review of Systems All systems: negative Constitutional: Denies chills, Denies fever Eyes: denies blurred vision, denies pain Ears, nose, mouth and throat: Denies headache, Denies sore throat Cardiovascular: Denies chest pain, Denies shortness of breath Respiratory: Denies cough Gastrointestinal: Denies abdominal pain, Denies diarrhea, Denies nausea, Denies vomiting Musculoskeletal: Denies myalgias Integumentary: Denies pruritus, Denies rash Neurological: Denies numbness, Denies weakness Psychiatric: Denies anxiety, Denies depression Endocrine: Denies fatigue, Denies weight change Past Medical History Past Medical History: COPD, Diabetes Mellitus, Deep Vein Thrombosis (DVT), Hearing Disorder / Deafness, Hyperlipidemia, Hypertension, Pulmonary Embolus (PE) Additional Past Medical History / Comment(s): Previous history of DVT/PE and patient has a maintained on long-term and to coagulation with warfarin, BPH, COPD, GE reflux, hypertension, iron deficiency anemia, muscle weakness generalized, coronary artery disease, gout, chronic constipation, impaired hearing, coronary artery disease, chronic kidney failure stage III disease, generalized edema, difficulty in walking, hyperlipidemia, depression, seasonal ALLERGIC rhinitis, diabetes mellitus type 2, glaucoma, osteoarthritis. Patient also is known to have abdominal aortic aneurysm- 11.6 cm. History of Any Multi-Drug Resistant Organisms: MRSA Date of last positivie culture/infection: 03/27/18 MDRO Source:: SPUTUM MRSA Past Surgical History: Appendectomy, Hernia Repair, Tonsillectomy Additional Past Surgical History / Comment(s): cataract, hydrocele, :9 stents in legs/ 2 aortic stents", rt ext iliac stent 05/29/16 at [place] Past Anesthesia/Blood Transfusion Reactions: No Reported Reaction Past Psychological History: No Psychological Hx Reported Smoking Status: Never smoker Past Alcohol Use History: None Reported Past Drug Use History: None Reported - Past Family History Mother Family Medical History: Cancer Additional Family Medical History / Comment(s): open heart surgery, CA ovarian and liver, lyme disease Medications and Allergies Home Medications Medication Instructions Recorded Confirmed Type Atorvastatin [Lipitor] 20 mg PO HS@199908/20/16 01/26/20 History Budesonide [Pulmicort] 0.5 mg INHALATION RT-BID@0700,1700 08/20/16 01/26/20 History Tamsulosin HCl [Flomax] 0.4 mg PO BID@07,199908/20/16 01/26/20 History Acetaminophen Tab [Tylenol] 650 mg PO Q6H PRN 12/29/17 01/26/20 History Melatonin 5 mg PO HS@199912/29/17 01/26/20 History Brimonidine Tartrate [Alphagan P 1 drops BOTH EYES BID@0500,1700 07/02/19 01/26/20 History 0.1% Ophth Soln] Insulin Detemir [Levemir Flextouch] 80 units SQ HS@209907/02/19 01/26/20 History Latanoprost/Pf [Latanoprost 0.005% 1 drop BOTH EYES HS@209907/02/19 01/26/20 History Eye Drop] Liquacel (Amino Acids) 30 ml PO DAILY@69907/02/19 01/26/20 History Losartan [Cozaar] 25 mg PO DAILY@69907/02/19 01/26/20 History Multivitamins, Thera [Multivitamin 1 tab PO DAILY@69907/02/19 01/26/20 History (formulary)] Polyethylene Glycol 3350 [Miralax] 17 gm PO DAILY@69907/02/19 01/26/20 History Sertraline HCl [Zoloft] 25 mg PO DAILY@199907/02/19 01/26/20 History Spironolactone [Aldactone] 25 mg PO DAILY@69907/02/19 01/26/20 History Aspirin 81 mg PO DAILY@699 #0 07/04/19 01/26/20 Rx Bisacodyl 10 mg PO Q48H PRN 01/26/20 01/26/20 History Dextran 70/Hypromellose [Genteal 1 drop BOTH EYES BID@699,199901/26/20 01/26/20 History Tears 0.1%-0.3% Drop] Furosemide [Lasix] 20 mg PO DAILY@209901/26/20 01/26/20 History Furosemide [Lasix] 40 mg PO DAILY@119901/26/20 01/26/20 History Insulin Aspart [NovoLOG Flexpen] See Protocol SQ ACHS@07,12,17,01/26/20 History Ipratropium-Albuterol Nebulize 3 ml INHALATION RT-TID@05,,18 01/26/20 01/26/20 History [Duoneb 0.5 mg-3 mg/3 ml Soln] Mag Hydrox/Aluminum Hyd/Simeth 10 ml PO Q4H PRN 01/26/20 01/26/20 History [Mylanta Maximum Strength Liq] Magnesium Hydroxide [Milk of 2,400 mg PO DAILY@1200 01/26/20 01/26/20 History Magnesia] Magnesium Hydroxide [Milk of 2,400 mg PO Q4HR PRN 01/26/20 01/26/20 History Magnesia] Menthol [Nice Cough Drops] 1 lozenge BUCCAL Q4H PRN 01/26/20 01/26/20 History Montelukast Sodium [Singulair] 10 mg PO Q24H PRN 01/26/20 01/26/20 History Na Phos,M-B/Na Phos,Di-Ba [Fleet 133 ml RECTAL Q96H PRN 01/26/20 01/26/20 History Adult] Ondansetron [Zofran] 4 mg PO Q6H PRN 01/26/20 01/26/20 History Pantoprazole Sodium [Protonix] 40 mg PO BID@0700,199901/26/20 01/26/20 History Sennosides-Docusate Sodium 2 tab PO BID@0700,209901/26/20 01/26/20 History [Senokot-S] Simethicone [Gas-X] 250 mg PO Q6H PRN 01/26/20 01/26/20 History Sulfamethox-Tmp 800-160Mg [Bactrim 1 tab PO DAILY@1300 01/26/20 01/26/20 History DS 800-160 mg] Warfarin Sodium 6 mg PO HS@209901/26/20 01/26/20 History Warfarin [Coumadin] 3 mg PO HS@209901/26/20 01/26/20 History bisacodyL [Dulcolax] 10 mg RECTAL Q72H PRN 01/26/20 01/26/20 History fentaNYL 100MCG/HR PATCH 1 patch TRANSDERM Q72H 01/26/20 01/26/20 History [Duragesic 100MCG/HR] guaiFENesin [Diabetic Tussin Ex] 200 mg PO Q4H PRN 01/26/20 01/26/20 History Allergies Allergy/AdvReac Type Severity Reaction Status Date / Time No Known Allergies Allergy Verified 01/26/20 16:35 Physical Exam Vitals: Vital Signs Temp Pulse Resp BP BP Pulse Ox 01/30/20 12:13 97.8 F 70 18 130/62 98 01/30/20 09:14 95 01/30/20 08:00 73 18 01/30/20 04:34 99.0 F 81 16 129/50 96 01/29/20 22:36 98.6 F 82 20 135/57 94 L 01/29/20 21:00 97.7 F 85 20 145/109 97 Intake and Output 01/29/20 01/30/20 01/30/20 22:59 06:59 14:59 Intake Total 1100 Output Total 350 275 Balance 750 -275 Intake: Oral 1100 Output: Urine 350 275 Other: Voiding Method Indwelling Catheter Indwelling Catheter Indwelling Catheter # Bowel Movements 1 Weight 167 kg GENERAL EXAM: Alert, very pleasant, morbidly obese 85-year-old white male, on 3 L of oxygen and pulse ox of 98% hard of hearing,, comfortable in no apparent distress. HEAD: Normocephalic/atraumatic. EYES: Normal reaction of pupils, equal size. Conjunctiva pink, sclera white. NOSE: Clear with pink turbinates. THROAT: No erythema or exudates. NECK: No masses, no JVD, no thyroid enlargement, no adenopathy. CHEST: No chest wall deformity. Symmetrical expansion. LUNGS: Equal air entry with no crackles, wheeze, rhonchi or dullness. CVS: Regular rate and rhythm, normal S1 and S2, no gallops, no murmurs, no rubs ABDOMEN: Soft, nontender. No hepatosplenomegaly, normal bowel sounds, no guarding or rigidity. EXTREMITIES: No clubbing, no edema, no cyanosis, 2+ pulses and upper and lower extremities. MUSCULOSKELETAL: Muscle strength and tone normal. SPINE: No scoliosis or deformity SKIN: No rashes CENTRAL NERVOUS SYSTEM: Alert and oriented -3. No focal deficits, tone is normal in all 4 extremities. PSYCHIATRIC: Alert and oriented -3. Appropriate affect. Intact judgment and insight. Results - Laboratory Findings CBC and BMP: 01/30/20 05:59 01/30/20 05:59 PT/INR, D-dimer PT 24.2 sec (9.9-11.9) H 01/30/20 05:59 INR 2.34 (0.90-1.11) H 01/30/20 05:59 D-Dimer 6.97 mg/L FEU (<0.60) H 01/30/20 09:50 Abnormal lab findings: Abnormal Labs 01/26/20 01/26/20 01/26/20 16:51 16:51 18:29 RBC 4.05 L Hgb 11.2 L Hct 34.0 L RDW 17.5 H Lymphocytes # 0.7 L PT INR APTT Fibrinogen D-Dimer Sodium 130 L Chloride 94 L BUN 25 H BUN/Creatinine Ratio Glucose 182 H POC Glucose (mg/dL) Calcium 8.3 L Creatine Kinase C-Reactive Protein Total Protein 6.1 L Albumin 3.3 L Albumin/Globulin Ratio Procalcitonin Urine Protein Trace H Urine Blood Large H Ur Leukocyte Esterase Large H Urine RBC 157 H Urine WBC 45 H Urine Bacteria Many H Hyaline Casts 6 H Urine Mucus Rare H Coronavirus (PCR) 01/26/20 01/26/20 01/26/20 18:34 19:44 19:44 RBC Hgb Hct RDW Lymphocytes # PT 25.2 H INR 2.6 H APTT 42.3 H Fibrinogen D-Dimer 6.10 H Sodium Chloride BUN BUN/Creatinine Ratio Glucose POC Glucose (mg/dL) Calcium Creatine Kinase C-Reactive Protein 55.6 H Total Protein Albumin Albumin/Globulin Ratio Procalcitonin Urine Protein Urine Blood Ur Leukocyte Esterase Urine RBC Urine WBC Urine Bacteria Hyaline Casts Urine Mucus Coronavirus (PCR) Detected A 01/26/20 01/27/20 01/27/20 19:44 07:08 07:08 RBC 4.14 L Hgb 10.9 L Hct 35.0 L RDW 17.5 H Lymphocytes # 0.9 L PT INR APTT Fibrinogen D-Dimer Sodium 132 L Chloride 96 L BUN 25 H BUN/Creatinine Ratio Glucose 160 H POC Glucose (mg/dL) Calcium 8.1 L Creatine Kinase C-Reactive Protein Total Protein Albumin Albumin/Globulin Ratio Procalcitonin 0.12 H Urine Protein Urine Blood Ur Leukocyte Esterase Urine RBC Urine WBC Urine Bacteria Hyaline Casts Urine Mucus Coronavirus (PCR) 01/27/20 01/27/20 01/27/20 07:57 11:15 12:09 RBC Hgb Hct RDW Lymphocytes # PT 32.6 H INR 3.3 H APTT Fibrinogen D-Dimer Sodium Chloride BUN BUN/Creatinine Ratio Glucose POC Glucose (mg/dL) 179 H 173 H Calcium Creatine Kinase C-Reactive Protein Total Protein Albumin Albumin/Globulin Ratio Procalcitonin Urine Protein Urine Blood Ur Leukocyte Esterase Urine RBC Urine WBC Urine Bacteria Hyaline Casts Urine Mucus Coronavirus (PCR) 01/27/20 01/27/20 01/28/20 16:59 20:31 07:07 RBC Hgb Hct RDW Lymphocytes # PT INR APTT Fibrinogen D-Dimer Sodium Chloride BUN BUN/Creatinine Ratio 30.00 H Glucose POC Glucose (mg/dL) 201 H 202 H Calcium 8.4 L Creatine Kinase C-Reactive Protein Total Protein Albumin Albumin/Globulin Ratio Procalcitonin Urine Protein Urine Blood Ur Leukocyte Esterase Urine RBC Urine WBC Urine Bacteria Hyaline Casts Urine Mucus Coronavirus (PCR) 01/28/20 01/28/20 01/28/20 07:35 11:44 14:20 RBC Hgb Hct RDW Lymphocytes # PT 28.6 H INR 2.9 H APTT Fibrinogen D-Dimer Sodium Chloride BUN BUN/Creatinine Ratio Glucose POC Glucose (mg/dL) 161 H 202 H Calcium Creatine Kinase C-Reactive Protein Total Protein Albumin Albumin/Globulin Ratio Procalcitonin Urine Protein Urine Blood Ur Leukocyte Esterase Urine RBC Urine WBC Urine Bacteria Hyaline Casts Urine Mucus Coronavirus (PCR) 01/28/20 01/28/20 01/29/20 17:08 20:40 05:44 RBC Hgb Hct RDW Lymphocytes # PT 28.0 H INR 2.72 H APTT Fibrinogen D-Dimer Sodium Chloride BUN BUN/Creatinine Ratio Glucose POC Glucose (mg/dL) 167 H 213 H Calcium Creatine Kinase C-Reactive Protein Total Protein Albumin Albumin/Globulin Ratio Procalcitonin Urine Protein Urine Blood Ur Leukocyte Esterase Urine RBC Urine WBC Urine Bacteria Hyaline Casts Urine Mucus Coronavirus (PCR) 01/29/20 01/29/20 01/29/20 05:44 07:35 12:16 RBC 3.71 L Hgb 10.3 L Hct 31.6 L RDW 17.6 H Lymphocytes # PT INR APTT Fibrinogen D-Dimer Sodium Chloride BUN BUN/Creatinine Ratio Glucose POC Glucose (mg/dL) 151 H 182 H Calcium Creatine Kinase C-Reactive Protein Total Protein Albumin Albumin/Globulin Ratio Procalcitonin Urine Protein Urine Blood Ur Leukocyte Esterase Urine RBC Urine WBC Urine Bacteria Hyaline Casts Urine Mucus Coronavirus (PCR) 01/29/20 01/29/20 01/29/20 17:48 20:06 22:22 RBC Hgb Hct RDW Lymphocytes # PT INR APTT Fibrinogen D-Dimer Sodium Chloride BUN BUN/Creatinine Ratio Glucose POC Glucose (mg/dL) 225 H 219 H 164 H Calcium Creatine Kinase C-Reactive Protein Total Protein Albumin Albumin/Globulin Ratio Procalcitonin Urine Protein Urine Blood Ur Leukocyte Esterase Urine RBC Urine WBC Urine Bacteria Hyaline Casts Urine Mucus Coronavirus (PCR) 01/30/20 01/30/20 01/30/20 05:59 05:59 05:59 RBC 3.93 L Hgb 10.5 L Hct 33.6 L RDW 17.6 H Lymphocytes # PT 24.2 H INR 2.34 H APTT Fibrinogen D-Dimer Sodium Chloride BUN BUN/Creatinine Ratio 23.33 H Glucose 129 H POC Glucose (mg/dL) Calcium 8.2 L Creatine Kinase C-Reactive Protein 5.5 H Total Protein 5.7 L Albumin 3.50 L Albumin/Globulin Ratio 1.59 L Procalcitonin Urine Protein Urine Blood Ur Leukocyte Esterase Urine RBC Urine WBC Urine Bacteria Hyaline Casts Urine Mucus Coronavirus (PCR) 01/30/20 01/30/20 01/30/20 07:18 09:50 09:50 RBC Hgb Hct RDW Lymphocytes # PT INR APTT Fibrinogen 528 H D-Dimer 6.97 H Sodium Chloride BUN BUN/Creatinine Ratio Glucose POC Glucose (mg/dL) 132 H Calcium Creatine Kinase 25 L C-Reactive Protein 62.6 H Total Protein Albumin Albumin/Globulin Ratio Procalcitonin Urine Protein Urine Blood Ur Leukocyte Esterase Urine RBC Urine WBC Urine Bacteria Hyaline Casts Urine Mucus Coronavirus (PCR) 01/30/20 11:35 RBC Hgb Hct RDW Lymphocytes # PT INR APTT Fibrinogen D-Dimer Sodium Chloride BUN BUN/Creatinine Ratio Glucose POC Glucose (mg/dL) 130 H Calcium Creatine Kinase C-Reactive Protein Total Protein Albumin Albumin/Globulin Ratio Procalcitonin Urine Protein Urine Blood Ur Leukocyte Esterase Urine RBC Urine WBC Urine Bacteria Hyaline Casts Urine Mucus Coronavirus (PCR) - Diagnostic Findings Chest x-ray: report reviewed, image reviewed Assessment and Plan Plan: Assessment: #1. COVID 19 infection, asymptomatic, chest x-ray showing patchy peripheral densities in the right midlung and left base, possibly related to some chronic changes related to previous history of pneumonia #2. Acute urinary tract infection related to Proteus mirabilis #3. Elevated inflammatory markers and a d-dimer related to acute COVID 19 infection, patient is on chronic anticoagulation in the form of Coumadin, with therapeutic INR of 2.3 #4. Chronic hypoxic respiratory failure related to COPD, patient wears 3 L of oxygen on a regular basis #5. Morbid obesity #6. Hypertension #7. Hyperlipidemia #8. Coronary artery disease #9. Chronic kidney disease stage III #10. Difficulty with ambulation, patient requires extensive assistance with all ADLs, suspect patient is bedbound on a regular basis #11. 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 Incontinence of urine and stool #13. History of pulmonary embolism and DVT, on chronic anticoagulation in the form of Coumadin #14. Diabetes mellitus2 Plan: Chest x-rays have been reviewed, last chest x-ray was a rotated exam, suspect some chronic changes related to previous history of pneumonia. Breathing is nonlabored, not much in the way of shortness of breath, cough congestion, no phlegm production. He is on 3 L of oxygen which is what she usually wears at home, with the O2 sat at 98%, discontinue the azithromycin, patient can continue on Rocephin for acute urinary tract infection, no need for Decadron, he can continue on his Coumadin, his INR is therapeutic, his d-dimer and inflammatory markers were noted, no need for any other treatment for COVID 19, continue with supportive treatment. From pulmonary perspective patient is stable for discha rge to an ECF that will accept Covid 19 patients, social work is on the case and is currently working on placing the patient in a facility for Covid 19 patients in [place], [place]. I performed a history & physical examination of the patient and discussed their management with my nurse practitioner, Kim Patel. I reviewed the nurse practitioner's note and agree with the documented findings and plan of care. Lung sounds are positive for diminished breath sounds. The findings and the impression was discussed with the patient. I attest to the documentation by the nurse practitioner. Time with Patient: Greater than 30
[2020-01-30 17:19] LABS: Glucose,Whole Blood 248 mg/dL (75-99)
[2020-01-30] MEDS: SODIUM CHLORIDE 0.9% 1,000 ML IV SCH (17:40)
[2020-01-30] MEDS ORDERED: WARFARIN 3 MG TAB PO ONE (18:00)
--- NOTE | 2020-01-30 19:50 | P.PN ---
Subjective Progress Note Date: 01/30/20 Principal diagnosis: Covid 19 positive and UTI Covid 19 positive and UTI 85-year-old male with past medical history of COPD, diabetes mellitus, DVT, hearing disorder, hypertension, hyperlipidemia, BPH, GERD coronary artery disease, gout, chronic constipation chronic kidney disease stage III, glaucoma, depression and difficulty ambulating. Patient was sent from [facility] facility for testing positive for COVID-19. Patient had intermittent fevers throughout the stay, chronic dyspnea on exertion. Oxygen dependent on 3 L. Patient denies cough or difficulty breathing. Patient complained of chronic lower sacral area painrelated to pressure ulcers. Patient has remained asymptomatic for Covid 19. Patient currently receiving IV antibiotics for acute on chronic urinary tract infections possibly related to indwelling Schmidt catheter present on admission. Objective - Vital Signs Vital signs: Vital Signs Temp 97.8 F 01/30/20 12:13 Pulse 68 01/30/20 16:00 Resp 18 01/30/20 16:00 BP 130/62 01/30/20 12:13 Pulse Ox 98 01/30/20 12:13 Intake & Output 01/30/20 01/30/20 01/31/20 06:59 18:59 06:59 Intake Total 1100 1270 Output Total 625 275 Balance 475 995 Weight 167 kg Intake: Intake, IV Titration 550 Amount Azithromycin 500 mg In 500 Sodium Chloride 0.9% 250 ml @ 250 mls/hr IVPB DAILY ALEXANDR Rx#:[id number] cefTRIAXone 1 gm In 50 Sodium Chloride 0.9% 50 ml @ 100 mls/hr IVPB Q24HR ALEXANDR Rx#:[id number] Oral 1100 720 Output: Urine 625 275 Other: Voiding Method Indwelling Catheter Indwelling Catheter # Voids 1 - Constitutional General appearance: Present: morbidly obese - EENT Eyes: Present: EOMI, PERRLA ENT: Present: hard of hearing - Respiratory Respiratory: bilateral: diminished (Posterior bases) - Cardiovascular Details: Normal sinus rhythm Heart rate: 68 Rhythm: regular Heart sounds: normal: S1, S2 - Gastrointestinal General gastrointestinal: Present: decreased bowel sounds - Genitourinary Genitourinary Comment(s): Indwelling catheter present on admission - Integumentary Integumentary Comment(s): Sacral and coccyx pressure ulcers present on admission Bilateral lower extremity edema Integumentary: Present: decreased turgor, pale - Neurologic Neurologic Comment(s): Delayed response with appropriate answers Neurologic: Present: CNII-XII intact - Musculoskeletal Musculoskeletal Comment(s): Bedbound Musculoskeletal: Present: generalized weakness - Psychiatric Psychiatric: Present: A&O x's 3 - Labs CBC & Chem 7: 01/30/20 05:59 01/30/20 05:59 Labs: Abnormal Lab Results - Last 24 Hours (Table) 01/26/20 01/29/20 01/29/20 Range/Units 18:34 20:06 22:22 RBC (4.30-5.90) m/uL Hgb (13.0-17.5) gm/dL Hct (39.0-53.0) % RDW (11.5-15.5) % PT (9.9-11.9) sec INR (0.90-1.11) Fibrinogen (200-500) mg/dL D-Dimer (<0.60) mg/L FEU BUN/Creatinine Ratio (12.00-20.00) Ratio Glucose (70-110) mg/dL POC Glucose (mg/dL) 219 H 164 H (75-99) mg/dL Calcium (8.7-10.3) mg/dL Creatine Kinase (55-170) U/L C-Reactive Protein (0.0-0.8) mg/dL Total Protein (6.2-8.2) g/dL Albumin (3.80-4.90) g/dL Albumin/Globulin Ratio (1.60-3.17) g/dL Coronavirus (PCR) Detected A (Not Detected) 01/30/20 01/30/20 01/30/20 Range/Units 05:59 05:59 05:59 RBC 3.93 L (4.30-5.90) m/uL Hgb 10.5 L (13.0-17.5) gm/dL Hct 33.6 L (39.0-53.0) % RDW 17.6 H (11.5-15.5) % PT 24.2 H (9.9-11.9) sec INR 2.34 H (0.90-1.11) Fibrinogen (200-500) mg/dL D-Dimer (<0.60) mg/L FEU BUN/Creatinine Ratio 23.33 H (12.00-20.00) Ratio Glucose 129 H (70-110) mg/dL POC Glucose (mg/dL) (75-99) mg/dL Calcium 8.2 L (8.7-10.3) mg/dL Creatine Kinase (55-170) U/L C-Reactive Protein 5.5 H (0.0-0.8) mg/dL Total Protein 5.7 L (6.2-8.2) g/dL Albumin 3.50 L (3.80-4.90) g/dL Albumin/Globulin Ratio 1.59 L (1.60-3.17) g/dL Coronavirus (PCR) (Not Detected) 01/30/20 01/30/20 01/30/20 Range/Units 07:18 09:50 09:50 RBC (4.30-5.90) m/uL Hgb (13.0-17.5) gm/dL Hct (39.0-53.0) % RDW (11.5-15.5) % PT (9.9-11.9) sec INR (0.90-1.11) Fibrinogen 528 H (200-500) mg/dL D-Dimer 6.97 H (<0.60) mg/L FEU BUN/Creatinine Ratio (12.00-20.00) Ratio Glucose (70-110) mg/dL POC Glucose (mg/dL) 132 H (75-99) mg/dL Calcium (8.7-10.3) mg/dL Creatine Kinase 25 L (55-170) U/L C-Reactive Protein 62.6 H (0.0-0.8) mg/dL Total Protein (6.2-8.2) g/dL Albumin (3.80-4.90) g/dL Albumin/Globulin Ratio (1.60-3.17) g/dL Coronavirus (PCR) (Not Detected) 01/30/20 01/30/20 Range/Units 11:35 17:17 RBC (4.30-5.90) m/uL Hgb (13.0-17.5) gm/dL Hct (39.0-53.0) % RDW (11.5-15.5) % PT (9.9-11.9) sec INR (0.90-1.11) Fibrinogen (200-500) mg/dL D-Dimer (<0.60) mg/L FEU BUN/Creatinine Ratio (12.00-20.00) Ratio Glucose (70-110) mg/dL POC Glucose (mg/dL) 130 H 248 H (75-99) mg/dL Calcium (8.7-10.3) mg/dL Creatine Kinase (55-170) U/L C-Reactive Protein (0.0-0.8) mg/dL Total Protein (6.2-8.2) g/dL Albumin (3.80-4.90) g/dL Albumin/Globulin Ratio (1.60-3.17) g/dL Coronavirus (PCR) (Not Detected) Microbiology - Last 24 Hours (Table) 01/29/20 10:48 Blood Culture - Preliminary Blood No Growth after 24 hours 01/26/20 17:44 Blood Culture - Preliminary Blood No Growth after 72 hours - Imaging and Cardiology Chest x-ray: report reviewed Assessment and Plan Assessment: Covid 19 infectionasymptomatic Urinary tract infectionreceiving IV antibiotics COPD Type 2 diabetes mellitus Coronary artery disease Chronic DVTs Bedbound Hypertension Hyperlipidemia Chronic heart of hearing Chronic kidney disease stage III Glaucoma Osteoarthritis Abdominal aortic aneurysm History of MRSA Chronic obesity (1) Lab test positive for detection of COVID-19 virus Narrative/Plan: Asymptomatic Current Visit: Yes Status: Acute Code(s): U07.1 - COVID-19 SNOMED Code(s): 1722685316366615 (2) Lung infiltrate Narrative/Plan: Infiltrate related to chronic scarring Current Visit: Yes Status: Acute Code(s): R91.8 - OTHER NONSPECIFIC ABNORMAL FINDING OF LUNG FIELD SNOMED Code(s): 400102740 (3) UTI (urinary tract infection) Narrative/Plan: Possibly due to indwelling catheter present on admission month exchanged on 01/28-continue IV Rocephin for proteus mirabilis Current Visit: Yes Status: Acute Code(s): N39.0 - URINARY TRACT INFECTION, SITE NOT SPECIFIED SNOMED Code(s): 47376360 Plan: Urinary tract infectionContinue with IV Rocephin for proteus mirabilis Covid 19 infectionconsultation with pulmonary critical care Chronic sacral and coccyx pressure ulcersconsult wound care Continue medical management Hopeful discharge with the next 24 hours Time with Patient: Greater than 30
[2020-01-30] MEDS: ATORVASTATIN 20 MG TAB PO SCH (19:56)
[2020-01-30] MEDS: SERTRALINE 25 MG TAB PO SCH (19:56)
[2020-01-30] MEDS: MELATONIN 5 MG TABLET PO SCH (19:56)
[2020-01-30 20:40] LABS: Glucose,Whole Blood 192 mg/dL (75-99)
[2020-01-30] MEDS: FUROSEMIDE 20 MG TAB PO SCH (20:43)
[2020-01-30] MEDS: INSULIN DETEMIR (LEVEMIR) 100 UNIT/ML SYR SQ SCH (20:44)
[2020-01-30] MEDS: LATANOPROST 0.005% OPHTH DROPS 2.5 ML BTL BOTH EYES SCH (20:44)
[2020-01-30 22:45] LABS: Ferritin 334.9 ng/mL (22.0-322.0)
[2020-01-31 05:50] LABS: INR 2.9 (<1.2); Prothrombin Time 28.7 sec (9.0-12.0)
[2020-01-31 07:23] LABS: Glucose,Whole Blood 128 mg/dL (75-99)
[2020-01-31] MEDS: PANTOPRAZOLE 40 MG TABLET PO SCH ×2 (09:01→21:00)
[2020-01-31] MEDS: SPIRONOLACTONE 25 MG TAB PO SCH (09:01)
[2020-01-31] MEDS: ASPIRIN 81 MG PO SCH (09:02)
[2020-01-31] MEDS: SENNOSIDES-DOCUSATE SODIUM 1 EACH TAB PO SCH ×2 (09:02→21:01)
[2020-01-31] MEDS: TAMSULOSIN 0.4 MG CAP.ER.24H PO SCH ×2 (09:02→21:00)
[2020-01-31] MEDS: polyethylene glycoL 3350 17 GM POWD.PACK PO SCH (09:02)
--- NOTE | 2020-01-31 09:03 | P.PN ---
Subjective Progress Note Date: 01/31/20 Principal diagnosis: Covid 19 positive and UTI Covid 19 positive and UTI 85-year-old male with past medical history of COPD, diabetes mellitus, DVT, hearing disorder, hypertension, hyperlipidemia, BPH, GERD coronary artery disease, gout, chronic constipation chronic kidney disease stage III, glaucoma, depression and difficulty ambulating. Patient was sent from [facility] facility for testing positive for COVID-19. Patient had intermittent fevers throughout the stay, chronic dyspnea on exertion. Oxygen dependent on 3 L. Patient denies cough or difficulty breathing. Patient complained of chronic lower sacral area painrelated to pressure ulcers. Patient has remained asymptomatic for Covid 19. Patient currently receiving IV antibiotics for acute on chronic urinary tract infections possibly related to indwelling Schmidt catheter present on admission. Patient denies any complaints at this time. Patient remains asymptomatic for Covid 19 infection. Objective - Vital Signs Vital signs: Vital Signs Temp 97.9 F 01/31/20 05:00 Pulse 70 01/31/20 05:00 Resp 18 01/31/20 05:00 BP 136/68 01/31/20 05:00 Pulse Ox 95 01/31/20 05:00 Intake & Output 01/30/20 01/31/20 01/31/20 18:59 06:59 18:59 Intake Total 1270 840 Output Total 275 650 Balance 995 190 Intake: Intake, IV Titration 550 240 Amount Azithromycin 500 mg In 500 Sodium Chloride 0.9% 250 ml @ 250 mls/hr IVPB DAILY [facility] Rx#:[id number] Sodium Chloride 0.9% 1, 240 000 ml @ 20 mls/hr IV . Q24H [facility] Rx#:[id number] cefTRIAXone 1 gm In 50 Sodium Chloride 0.9% 50 ml @ 100 mls/hr IVPB Q24HR [facility] Rx#:[id number] Oral 720 600 Output: Urine 275 650 Other: Voiding Method Indwelling Catheter Indwelling Catheter # Voids 1 # Bowel Movements 1 - Constitutional General appearance: Present: morbidly obese - EENT Eyes: Present: EOMI, PERRLA ENT: Present: hard of hearing Ears: bilateral: normal - Respiratory Respiratory: bilateral: diminished (Posterior bases) - Cardiovascular Details: Normal sinus rhythm Heart rate: 70 Rhythm: regular Heart sounds: normal: S1, S2 - Gastrointestinal General gastrointestinal: Present: decreased bowel sounds - Integumentary Integumentary Comment(s): Stage III pressure ulcers to coccyx and sacral area Lower extremity dependent edema Integumentary: Present: decreased turgor, pale - Neurologic Neurologic: Present: CNII-XII intact - Musculoskeletal Musculoskeletal: Present: generalized weakness - Psychiatric Psychiatric: Present: A&O x's 3, appropriate affect, intact judgment & insight - Allied health notes Allied health notes reviewed: case management - Labs CBC & Chem 7: 01/30/20 05:59 01/30/20 05:59 Labs: Abnormal Lab Results - Last 24 Hours (Table) 01/30/20 01/30/20 01/30/20 Range/Units 05:59 05:59 09:50 PT 24.2 H (9.9-11.9) sec INR 2.34 H (0.90-1.11) Fibrinogen 528 H (200-500) mg/dL D-Dimer 6.97 H (<0.60) mg/L FEU BUN/Creatinine Ratio 23.33 H (12.00-20.00) Ratio Glucose 129 H (70-110) mg/dL POC Glucose (mg/dL) (75-99) mg/dL Calcium 8.2 L (8.7-10.3) mg/dL Ferritin (22.0-322.0) ng/mL Creatine Kinase (55-170) U/L C-Reactive Protein 5.5 H (0.0-0.8) mg/dL Total Protein 5.7 L (6.2-8.2) g/dL Albumin 3.50 L (3.80-4.90) g/dL Albumin/Globulin Ratio 1.59 L (1.60-3.17) g/dL Procalcitonin (0.02-0.09) ng/mL 01/30/20 01/30/20 01/30/20 Range/Units 09:50 09:50 11:35 PT (9.9-11.9) sec INR (0.90-1.11) Fibrinogen (200-500) mg/dL D-Dimer (<0.60) mg/L FEU BUN/Creatinine Ratio (12.00-20.00) Ratio Glucose (70-110) mg/dL POC Glucose (mg/dL) 130 H (75-99) mg/dL Calcium (8.7-10.3) mg/dL Ferritin 334.9 H (22.0-322.0) ng/mL Creatine Kinase 25 L (55-170) U/L C-Reactive Protein 62.6 H (0.0-0.8) mg/dL Total Protein (6.2-8.2) g/dL Albumin (3.80-4.90) g/dL Albumin/Globulin Ratio (1.60-3.17) g/dL Procalcitonin 0.10 H (0.02-0.09) ng/mL 01/30/20 01/30/20 01/31/20 Range/Units 17:17 20:31 04:58 PT 28.7 H (9.9-11.9) sec INR 2.9 H (0.90-1.11) Fibrinogen (200-500) mg/dL D-Dimer (<0.60) mg/L FEU BUN/Creatinine Ratio (12.00-20.00) Ratio Glucose (70-110) mg/dL POC Glucose (mg/dL) 248 H 192 H (75-99) mg/dL Calcium (8.7-10.3) mg/dL Ferritin (22.0-322.0) ng/mL Creatine Kinase (55-170) U/L C-Reactive Protein (0.0-0.8) mg/dL Total Protein (6.2-8.2) g/dL Albumin (3.80-4.90) g/dL Albumin/Globulin Ratio (1.60-3.17) g/dL Procalcitonin (0.02-0.09) ng/mL 01/31/20 Range/Units 07:22 PT (9.9-11.9) sec INR (0.90-1.11) Fibrinogen (200-500) mg/dL D-Dimer (<0.60) mg/L FEU BUN/Creatinine Ratio (12.00-20.00) Ratio Glucose (70-110) mg/dL POC Glucose (mg/dL) 128 H (75-99) mg/dL Calcium (8.7-10.3) mg/dL Ferritin (22.0-322.0) ng/mL Creatine Kinase (55-170) U/L C-Reactive Protein (0.0-0.8) mg/dL Total Protein (6.2-8.2) g/dL Albumin (3.80-4.90) g/dL Albumin/Globulin Ratio (1.60-3.17) g/dL Procalcitonin (0.02-0.09) ng/mL Microbiology - Last 24 Hours (Table) 01/26/20 17:44 Blood Culture - Preliminary Blood No Growth after 96 hours 01/29/20 10:48 Blood Culture - Preliminary Blood No Growth after 24 hours - Imaging and Cardiology Chest x-ray: report reviewed Assessment and Plan Assessment: Covid 19 infectionasymptomatic Urinary tract infectionreceiving IV antibiotics COPD Type 2 diabetes mellitus Coronary artery disease Chronic DVTs Bedbound Hypertension Hyperlipidemia Chronic heart of hearing Chronic kidney disease stage III Glaucoma Osteoarthritis Abdominal aortic aneurysm History of MRSA Chronic obesity Stage III pressure ulcers to sacral (1) Lab test positive for detection of COVID-19 virus Narrative/Plan: Asymptomatic Current Visit: Yes Status: Acute Code(s): U07.1 - COVID-19 SNOMED Code(s): 5007564153881703 (2) Lung infiltrate Narrative/Plan: Infiltrate related to chronic scarring Current Visit: Yes Status: Acute Code(s): R91.8 - OTHER NONSPECIFIC ABNORMAL FINDING OF LUNG FIELD SNOMED Code(s): 366769424 (3) UTI (urinary tract infection) Narrative/Plan: Possibly due to indwelling catheter present on admission exchanged on 01/28- continue IV Rocephin for proteus mirabilis Current Visit: Yes Status: Acute Code(s): N39.0 - URINARY TRACT INFECTION, SITE NOT SPECIFIED SNOMED Code(s): 89429818 Plan: Urinary tract infectionContinue with IV Rocephin for proteus mirabilis Covid 19 infectionasymptomaticcleared by critical care pulmonology Chronic sacral and coccyx pressure ulcersrecommendation and treatment management from wound care physician Continue medical management Hopeful discharge with the next 24 hours to [facility] facility Time with Patient: Less than 30
[2020-01-31] MEDS: INSULIN ASPART (NovoLOG) 100 UNIT/ML VIAL SQ SCH ×4 (09:06→21:20)
[2020-01-31 11:03] LABS: Glucose,Whole Blood 164 mg/dL (75-99)
--- NOTE | 2020-01-31 12:12 | P.PN ---
Subjective Progress Note Date: 01/31/20 Principal diagnosis: Urinary tract infection, CoVID 19 positive This is a 85-year-old male patient with multiple chronic medical problems, who is a resident of [facility], who tested positive for COVID 19 last Wednesday on 01/26/2020. Apparently patient was asymptomatic, denied any increased shortness of breath, denied any fever or chills, no cough, no chest pain no nausea vomiting or diarrhea. No night sweats, no fevers. No ENT symptoms. Medical history includes diabetes mellitus type 2, hypertension, hyperlipidemia, chronic COPD on the home oxygen at 3 L/m, CAD, difficulty hearing, previous history of pulmonary embolism and DVT maintained on Coumadin, chronic kidney disease stage III, morbid obesity, history of aortic aneurysm with surgical repair, and impaired functional status, and gait dysfunction. Patient has remained asymptomatic while in the hospital, he was positive for a urinary tract infection, urine culture showed Proteus mirabilis. Patient was started on azithromycin and Rocephin. His initial chest x-ray shows coarse interstitial a nd airspace infiltrates in the left lower lobe, right lung was clear, probable underlying pulmonary fibrosis. Follow-up chest x-ray today shows some patchy peripheral densities in the right midlung and left base likely related to atelectasis, and it was a rotated exam. Patient continues to be asymptomatic, inpatient over 19 PCR also came back positive. Did have some elevated temperatures while in the hospital, last one was 48 hours ago, on 01/28/2020 with a temp of 101.3F, his been afebrile since, hemodynamically stable, he is awake and alert, he is however a poor historian, but appears to be in no acute distress. He is on 3 L of oxygen his pulse ox is 98%, breathing nonlabored. We were asked to see the patient in evaluation for Covid 19 treatment The patient is seen today 01/31/2020 in follow-up on the regular medical floor. He is awake and alert in no acute distress. No shortness of breath, cough or congestion. He is maintaining O2 saturations at 97% on 3 L/m per nasal cannula. He is afebrile. Hemodynamically stable. Blood culture revealing no growth. Urine culture positive for Proteus mirabilis. INR 2.9. Glucose 164. Remains on ceftriaxone. Objective - Vital Signs Vital signs: Vital Signs Temp 97.9 F 01/31/20 11:58 Pulse 80 01/31/20 11:58 Resp 18 01/31/20 11:58 BP 120/55 01/31/20 11:58 Pulse Ox 97 01/31/20 11:58 Intake & Output 01/30/20 01/31/20 01/31/20 18:59 06:59 18:59 Intake Total 1270 840 Output Total 275 650 Balance 995 190 Intake: Intake, IV Titration 550 240 Amount Azithromycin 500 mg In 500 Sodium Chloride 0.9% 250 ml @ 250 mls/hr IVPB DAILY [facility] Rx#:[id number] Sodium Chloride 0.9% 1, 240 000 ml @ 20 mls/hr IV . Q24H [facility] Rx#:[id number] cefTRIAXone 1 gm In 50 Sodium Chloride 0.9% 50 ml @ 100 mls/hr IVPB Q24HR [facility] Rx#:[id number] Oral 720 600 Output: Urine 275 650 Other: Voiding Method Indwelling Catheter Indwelling Catheter # Voids 1 # Bowel Movements 1 - Exam GENERAL EXAM: Alert, very pleasant, morbidly obese 85-year-old male patient, on 3 L of oxygen and pulse ox of 97% hard of hearing,, comfortable in no apparent distress. HEAD: Normocephalic/atraumatic. EYES: Normal reaction of pupils, equal size. Conjunctiva pink, sclera white. NOSE: Clear with pink turbinates. THROAT: No erythema or exudates. NECK: No masses, no JVD, no thyroid enlargement, no adenopathy. CHEST: No chest wall deformity. Symmetrical expansion. LUNGS: Equal air entry with no crackles, wheeze, rhonchi or dullness. CVS: Regular rate and rhythm, normal S1 and S2, no gallops, no murmurs, no rubs ABDOMEN: Soft, nontender. No hepatosplenomegaly, normal bowel sounds, no guarding or rigidity. EXTREMITIES: No clubbing, no edema, no cyanosis, 2+ pulses and upper and lower extremities. MUSCULOSKELETAL: Muscle strength and tone normal. SPINE: No scoliosis or deformity SKIN: No rashes CENTRAL NERVOUS SYSTEM: Alert and oriented -3. No focal deficits, tone is normal in all 4 extremities. PSYCHIATRIC: Alert and oriented -3. Appropriate affect. Intact judgment and insight. - Labs CBC & Chem 7: 01/30/20 05:59 01/30/20 05:59 Labs: Abnormal Lab Results - Last 24 Hours (Table) 01/30/20 01/30/20 01/30/20 Range/Units 09:50 09:50 17:17 PT (9.0-12.0) sec INR (<1.2) POC Glucose (mg/dL) 248 H (75-99) mg/dL Ferritin 334.9 H (22.0-322.0) ng/mL Procalcitonin 0.10 H (0.02-0.09) ng/mL 01/30/20 01/31/20 01/31/20 Range/Units 20:31 04:58 07:22 PT 28.7 H (9.0-12.0) sec INR 2.9 H (<1.2) POC Glucose (mg/dL) 192 H 128 H (75-99) mg/dL Ferritin (22.0-322.0) ng/mL Procalcitonin (0.02-0.09) ng/mL 01/31/20 Range/Units 10:59 PT (9.0-12.0) sec INR (<1.2) POC Glucose (mg/dL) 164 H (75-99) mg/dL Ferritin (22.0-322.0) ng/mL Procalcitonin (0.02-0.09) ng/mL Microbiology - Last 24 Hours (Table) 01/26/20 17:44 Blood Culture - Preliminary Blood No Growth after 96 hours 01/29/20 10:48 Blood Culture - Preliminary Blood No Growth after 24 hours Assessment and Plan Assessment: 1 COVID 19 infection, asymptomatic, chest x-ray showing patchy peripheral densities in the right midlung and left base, possibly related to some chronic changes related to previous history of pneumonia 2 Acute urinary tract infection related to Proteus mirabilis, currently on ceftriaxone 3 Elevated inflammatory markers and a d-dimer related to acute COVID 19 infection, patient is on chronic anticoagulation in the form of Coumadin, with therapeutic INR of 2.9 4 Chronic hypoxic respiratory failure related to COPD, patient wears 3 L of oxygen on a regular basis 5 Morbid obesity 6 Hypertension 7 Hyperlipidemia 8 Coronary artery disease 9 Chronic kidney disease stage III 10 Difficulty with ambulation, patient requires extensive assistance with all ADLs, suspect patient is bedbound on a regular basis 11 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 Stevenson Currently stable from the pulmonary standpoint On his home oxygen at 3 L/m with O2 saturation 97% No pulmonary complaints Cleared for discharge from the pulmonary standpoint I, the cosigning physician, performed a history & physical examination of the patient. Lungs sounds are clear. Maintaining good O2 saturations in the 90s on 3 L/m per nasal cannula. I discussed the assessment and plan of care with my nurse practitioner, Zeny Richards. I attest to the above note as dictated by her.
[2020-01-31] MEDS: FUROSEMIDE 40 MG TAB PO SCH (12:16)
[2020-01-31] MEDS: HYDROPHILIC CREAM 180 GM TUBE TOPICAL SCH (12:17)
[2020-01-31 13:26] VITALS: BMI 47.2
[2020-01-31 17:19] LABS: Glucose,Whole Blood 193 mg/dL (75-99)
[2020-01-31] MEDS: SODIUM CHLORIDE 0.9% 1,000 ML IV SCH (17:19)
[2020-01-31] MEDS ORDERED: WARFARIN 3 MG TAB PO ONE (18:00)
[2020-01-31] MEDS: ATORVASTATIN 20 MG TAB PO SCH (21:00)
[2020-01-31] MEDS: SERTRALINE 25 MG TAB PO SCH (21:00)
[2020-01-31] MEDS: MELATONIN 5 MG TABLET PO SCH (21:00)
[2020-01-31] MEDS: FUROSEMIDE 20 MG TAB PO SCH (21:00)
[2020-01-31 21:18] LABS: Glucose,Whole Blood 219 mg/dL (75-99)
[2020-01-31] MEDS: INSULIN DETEMIR (LEVEMIR) 100 UNIT/ML SYR SQ SCH (21:20)
[2020-01-31] MEDS: LATANOPROST 0.005% OPHTH DROPS 2.5 ML BTL BOTH EYES SCH (21:20)
[2020-02-01 05:39] VITALS: PULSE 62
[2020-02-01 07:31] LABS: Anisocytosis Slight; Basophils % (A) 1 %; Eosinophils # (A) 0.3 k/uL (0-0.7); Eosinophils % (A) 7 %; HCT 30.6 % (39.0-53.0); HGB 9.7 gm/dL (13.0-17.5); Hypochromasia Moderate; Lymphocytes # (A) 1.1 k/uL (1.0-4.8); Lymphocytes % (A) 25 %; MCHC 31.8 g/dL (31.0-37.0); MCV 84.9 fL (80.0-100.0); Mean Platelet Volume 7.7; Monocytes # (A) 0.3 k/uL (0-1.0); Monocytes % (A) 6 %; Neutrophils # (A) 2.8 k/uL (1.3-7.7); Neutrophils % (A) 60 %; Platelet Count 202 k/uL (150-450); Poikilocytosis Slight; RBC 3.61 m/uL (4.30-5.90); RDW 17.4 % (11.5-15.5); WBC 4.6 k/uL (3.8-10.6)
[2020-02-01 07:49] LABS: Glucose,Whole Blood 111 mg/dL (75-99)
--- NOTE | 2020-02-01 08:43 | P.PN ---
Subjective Progress Note Date: 02/01/20 Principal diagnosis: Covid 19 positive and UTI Covid 19 positive and UTI 85-year-old male with past medical history of COPD, diabetes mellitus, DVT, hearing disorder, hypertension, hyperlipidemia, BPH, GERD coronary artery disease, gout, chronic constipation chronic kidney disease stage III, glaucoma, depression and difficulty ambulating. Patient was sent from [facility] facility for testing positive for COVID-19. Patient had intermittent fevers throughout the stay, chronic dyspnea on exertion. Oxygen dependent on 3 L. Patient denies cough or difficulty breathing. Patient complained of chronic lower sacral area painrelated to pressure ulcers. Patient has remained asymptomatic for Covid 19. Patient currently receiving IV antibiotics for acute on chronic urinary tract infections possibly related to indwelling Schmidt catheter present on admission. Patient denies any complaints at this time. Patient remains asymptomatic for Covid 19 infection. Patient resting comfortably in bed, denying any complaints at this time. Requesting to be tra nsferred back to [facility] Objective - Vital Signs Vital signs: Vital Signs Temp 98.2 F 02/01/20 05:39 Pulse 62 02/01/20 05:39 Resp 21 02/01/20 05:39 BP 126/53 02/01/20 05:39 Pulse Ox 99 02/01/20 05:39 Intake & Output 01/31/20 02/01/20 02/01/20 18:59 06:59 18:59 Intake Total 210 840 Output Total 300 1400 Balance -90 -560 Weight 167 kg 166 kg Intake: Intake, IV Titration 210 240 Amount Sodium Chloride 0.9% 1, 160 240 000 ml @ 20 mls/hr IV . Q24H [facility]LEX[facility] Rx#:[id number] cefTRIAXone 1 gm In 50 Sodium Chloride 0.9% 50 ml @ 100 mls/hr IVPB Q24HR [facility]LEX[facility] Rx#:[id number] Oral 600 Output: Urine 300 1400 Other: Voiding Method Indwelling Catheter Indwelling Catheter # Voids 1 - Constitutional General appearance: Present: morbidly obese - EENT Eyes: Present: EOMI, PERRLA ENT: Present: hard of hearing Ears: bilateral: normal - Respiratory Respiratory: bilateral: diminished (Anterior and posterior) - Cardiovascular Details: Normal sinus rhythm Heart rate: 62 Rhythm: regular Heart sounds: normal: S1, S2 - Gastrointestinal General gastrointestinal: Present: normal bowel sounds - Genitourinary Genitourinary Comment(s): Urinary catheter present - Integumentary Integumentary: Present: normal turgor, pale (Chronic bilateral lower extremity edema) - Neurologic Neurologic: Present: CNII-XII intact - Musculoskeletal Musculoskeletal: Present: generalized weakness (Bedbound due to history cerebro vascular accident) - Psychiatric Psychiatric: Present: A&O x's 3, appropriate affect, intact judgment & insight - Labs CBC & Chem 7: 02/01/20 06:48 01/30/20 05:59 Labs: Abnormal Lab Results - Last 24 Hours (Table) 01/31/20 01/31/20 01/31/20 Range/Units 10:59 17:15 21:16 RBC (4.30-5.90) m/uL Hgb (13.0-17.5) gm/dL Hct (39.0-53.0) % RDW (11.5-15.5) % POC Glucose (mg/dL) 164 H 193 H 219 H (75-99) mg/dL 02/01/20 02/01/20 Range/Units 06:48 07:45 RBC 3.61 L (4.30-5.90) m/uL Hgb 9.7 L (13.0-17.5) gm/dL Hct 30.6 L (39.0-53.0) % RDW 17.4 H (11.5-15.5) % POC Glucose (mg/dL) 111 H (75-99) mg/dL Microbiology - Last 24 Hours (Table) 01/26/20 17:44 Blood Culture - Preliminary Blood No Growth after 120 hours 01/29/20 10:48 Blood Culture - Preliminary Blood No Growth after 48 hours Assessment and Plan Assessment: Covid 19 infectionasymptomatic Urinary tract infectionreceiving IV antibiotics COPD Type 2 diabetes mellitus Coronary artery disease Chronic DVTs Bedbound Hypertension Hyperlipidemia Chronic heart of hearing Chronic kidney disease stage III Glaucoma Osteoarthritis Abdominal aortic aneurysm History of MRSA Chronic obesity Stage III pressure ulcers to sacral (1) Lab test positive for detection of COVID-19 virus Narrative/Plan: Asymptomatic-cleared from pulmonary critical care perspective for discharge Current Visit: Yes Status: Acute Code(s): U07.1 - COVID-19 SNOMED Code(s): 7544718554574644 (2) Lung infiltrate Narrative/Plan: Infiltrate related to chronic scarring, no leukocytosis or signs of pneumonia at this time Current Visit: Yes Status: Acute Code(s): R91.8 - OTHER NONSPECIFIC ABNORMAL FINDING OF LUNG FIELD SNOMED Code(s): 386294543 (3) UTI (urinary tract infection) Narrative/Plan: Possibly due to indwelling catheter present on admission exchanged on 01/28- continue IV Rocephin for proteus mirabilis, plan discharge on oral antibiotics Omnicef 300 mg by mouth twice a day for 10 day duration as intermediate facility Current Visit: Yes Status: Acute Code(s): N39.0 - URINARY TRACT INFECTION, SITE NOT SPECIFIED SNOMED Code(s): 37127086 Plan: Urinary tract infectionContinue with IV Rocephin for proteus mirabilis, once able to transfer to intermediate facility will start Omnicef 300 mg by mouth twice for 10 day duration Covid 19 infectionasymptomaticcleared by critical care pulmonology Chronic sacral and coccyx pressure ulcersrecommendation and treatment management from wound care physician Continue medical management Discharge to [facility] nursing facility Time with Patient: Less than 30
[2020-02-01] MEDS: INSULIN ASPART (NovoLOG) 100 UNIT/ML VIAL SQ SCH ×2 (09:01→13:11)
[2020-02-01] MEDS: ASPIRIN 81 MG PO SCH (09:50)
[2020-02-01] MEDS: TAMSULOSIN 0.4 MG CAP.ER.24H PO SCH (09:51)
[2020-02-01] MEDS: PANTOPRAZOLE 40 MG TABLET PO SCH (09:51)
[2020-02-01] MEDS: SENNOSIDES-DOCUSATE SODIUM 1 EACH TAB PO SCH (09:51)
[2020-02-01] MEDS: SPIRONOLACTONE 25 MG TAB PO SCH (09:51)
[2020-02-01] MEDS: polyethylene glycoL 3350 17 GM POWD.PACK PO SCH (09:53)
[2020-02-01 11:04] LABS: African American GFR (CKD) 94.4 (60.0-200.0); Albumin 3.2 g/dL (3.80-4.90); Albumin/Globulin Ratio 1.6 (1.60-3.17); Anion Gap 7.3 mmol/L (4.00-12.00); BUN/Creat Ratio 27.5 Ratio (12.00-20.00); Carbon Dioxide 30.7 mmol/L (21.6-31.8); Non-African American GFR(CKD) 81.5 (60.0-200.0); Potassium 3.8 mmol/L (3.5-5.5); Total Bilirubin 0.3 mg/dL (0.2-1.2); Total Protein 5.2 g/dL (6.2-8.2)
[2020-02-01 11:33] LABS: Glucose,Whole Blood 162 mg/dL (75-99)
[2020-02-01 11:49] LABS: INR 2.66 (0.90-1.11); Prothrombin Time 27.2 sec (9.9-11.9)
[2020-02-01 12:42] VITALS: BP 130/51; RESP 18; TEMP 97.7
--- NOTE | 2020-02-01 13:00 | P.DS ---
Providers Date of admission: 01/26/20 18:44 Expected date of discharge: 02/01/20 Attending physician: Shar Piper Consults: 01/30/20 12:22 Consult Physician Urgent Consulting Provider: Kirill Stevenson Consult Reason/Comments: COVID-19/PNEUMONIA Do you want consulting provider notified?: Yes Primary care physician: Shar Piper - Discharge Diagnosis(es) (1) Lab test positive for detection of COVID-19 virus patient remained asymptomatic throughout hospital stay, evaluated by pulmonary critical care cleared for discharge Current Visit: Yes Status: Acute (2) Lung infiltrate per pulmonary critical care recommendation no evidence of pneumonia Current Visit: Yes Status: Acute (3) UTI (urinary tract infection) received IV Rocephin for 5 day duration; will be sent to the nursing facility with prescription for Omnicef 300 mg by mouth twice a day 10 days Current Visit: Yes Status: Acute Hospital Course: 85-year-old male with past medical history COPD, diabetes mellitus type 2,chronic DVTs,hypertension, hyperlipidemia, BPH,GERD,coronary artery disease, gout, chronic constipation, and a kidney disease stage III, glaucoma,depression, difficulty ambulation patient was sent from [facility] testing positive for Covid 19-patient remained asymptomatic during hospital stay evaluated by pulmonary critical careokay for discharge. Patient had intermittent fevers and chills during hospital associated with acute urinary tract infectionproteus mirabilis patient received IV Rocephin for 5 day duration. Patient will be sent with prescription of Omnicef 300 mg by mouth twice a day 10 day duration. Patient responded to IV antibiotics she was evaluated by an care physician and recommendations for sacral and coccyx pressure ulcer stage III. patient remained stable throughout hospital stay and okay for discharge to long term facility Assessment: Covid 19 infectionasymptomatic Urinary tract infection will be sent home to long term facility and Omnicef 300 mg by mouth twice a day 10 days COPD Type 2 diabetes mellitus Coronary artery disease DVTs Bedbound Hypertension Hyperlipidemia Chronic kidney disease stage III Glaucoma Osteoarthritis Abdominal aortic aneurysm history of MRSA Chronic obesity Stage III pressure ulcers to sacral Health Concerns: morbid obesity with coccyx stage III pressure ulcers Limited ability to offload in bed Pertinent Studies: serial chest x-rays Procedures: none noted Patient Condition at Discharge: Fair Plan - Discharge Summary Discharge Rx Participant: Yes New Discharge Prescriptions: New Hydrophilic Cream [Triad Cream] 1 applic TOPICAL DAILY #1 tube Continue Tamsulosin HCl [Flomax] 0.4 mg PO BID@0700,1999 Budesonide [Pulmicort] 0.5 mg INHALATION RT-BID@0700,1700 Atorvastatin [Lipitor] 20 mg PO HS@1999 Melatonin 5 mg PO HS@1999 Acetaminophen Tab [Tylenol] 650 mg PO Q6H PRN PRN Reason: Fever And/ Or Pain Brimonidine Tartrate [Alphagan P 0.1% Ophth Soln] 1 drops BOTH EYES BID@0500,1700 Sertraline HCl [Zoloft] 25 mg PO DAILY@1999 Multivitamins, Thera [Multivitamin (formulary)] 1 tab PO DAILY@07 Polyethylene Glycol 3350 [Miralax] 17 gm PO DAILY@07 Losartan [Cozaar] 25 mg PO DAILY@0700 Liquacel (Amino Acids) 30 ml PO DAILY@0700 Insulin Detemir [Levemir Flextouch] 80 units SQ HS@2099 Latanoprost/Pf [Latanoprost 0.005% Eye Drop] 1 drop BOTH EYES HS@2099 Spironolactone [Aldactone] 25 mg PO DAILY@0700 Aspirin 81 mg PO DAILY@0700 #0 Mag Hydrox/Aluminum Hyd/Simeth [Mylanta Maximum Strength Liq] 10 ml PO Q4H PRN PRN Reason: Gi Upset Montelukast Sodium [Singulair] 10 mg PO Q24H PRN PRN Reason: allergic rhinitis Magnesium Hydroxide [Milk of Magnesia] 2,400 mg PO Q4HR PRN PRN Reason: Constipation Simethicone [Gas-X] 250 mg PO Q6H PRN PRN Reason: Gi Upset Na Phos,M-B/Na Phos,Di-Ba [Fleet Adult] 133 ml RECTAL Q96H PRN PRN Reason: Constipation fentaNYL 100MCG/HR PATCH [Duragesic 100MCG/HR] 1 patch TRANSDERM Q72H bisacodyL [Dulcolax] 10 mg RECTAL Q72H PRN PRN Reason: Constipation guaiFENesin [Diabetic Tussin Ex] 200 mg PO Q4H PRN PRN Reason: Cough Menthol [Nice Cough Drops] 1 lozenge BUCCAL Q4H PRN PRN Reason: Sore Throat Bisacodyl 10 mg PO Q48H PRN PRN Reason: Constipation Insulin Aspart [NovoLOG Flexpen] See Protocol SQ ACHS@,,, Ipratropium-Albuterol Nebulize [Duoneb 0.5 mg-3 mg/3 ml Soln] 3 ml INHALATION RT-TID@,, Dextran 70/Hypromellose [Genteal Tears 0.1%-0.3% Drop] 1 drop BOTH EYES BID@699,1999 Sennosides-Docusate Sodium [Senokot-S] 2 tab PO BID@699,2099 Pantoprazole Sodium [Protonix] 40 mg PO BID@699,1999 Magnesium Hydroxide [Milk of Magnesia] 2,400 mg PO DAILY@1199 Furosemide [Lasix] 40 mg PO DAILY@1199 Furosemide [Lasix] 20 mg PO DAILY@2099 Warfarin [Coumadin] 3 mg PO HS@2099 Warfarin Sodium 6 mg PO HS@2099 Ondansetron [Zofran] 4 mg PO Q6H PRN PRN Reason: Nausea And Vomiting Discontinued Sulfamethox-Tmp 800-160Mg [Bactrim DS 800-160 mg] 1 tab PO DAILY@1300 Discharge Medication List Atorvastatin [Lipitor] 20 mg PO HS@199908/20/16 [History] Budesonide [Pulmicort] 0.5 mg INHALATION RT-BID@699,169908/20/16 [History] Tamsulosin HCl [Flomax] 0.4 mg PO BID@699,199908/20/16 [History] Acetaminophen Tab [Tylenol] 650 mg PO Q6H PRN 12/29/17 [History] Melatonin 5 mg PO HS@199912/29/17 [History] Brimonidine Tartrate [Alphagan P 0.1% Ophth Soln] 1 drops BOTH EYES BID@0500,1700 07/02/19 [History] Insulin Detemir [Levemir Flextouch] 80 units SQ HS@209907/02/19 [History] Latanoprost/Pf [Latanoprost 0.005% Eye Drop] 1 drop BOTH EYES HS@209907/02/19 [History] Liquacel (Amino Acids) 30 ml PO DAILY@69907/02/19 [History] Losartan [Cozaar] 25 mg PO DAILY@0707/02/19 [History] Multivitamins, Thera [Multivitamin (formulary)] 1 tab PO DAILY@69907/02/19 [History] Polyethylene Glycol 3350 [Miralax] 17 gm PO DAILY@69907/02/19 [History] Sertraline HCl [Zoloft] 25 mg PO DAILY@199907/02/19 [History] Spironolactone [Aldactone] 25 mg PO DAILY@69907/02/19 [History] Aspirin 81 mg PO DAILY@0700 #0 07/04/19 [Rx] Bisacodyl 10 mg PO Q48H PRN 01/26/20 [History] Dextran 70/Hypromellose [Genteal Tears 0.1%-0.3% Drop] 1 drop BOTH EYES BID@07,199901/26/20 [History] Furosemide [Lasix] 20 mg PO DAILY@209901/26/20 [History] Furosemide [Lasix] 40 mg PO DAILY@119901/26/20 [History] Insulin Aspart [NovoLOG Flexpen] See Protocol SQ ACHS@07,12,17,01/26/20 [History] Ipratropium-Albuterol Nebulize [Duoneb 0.5 mg-3 mg/3 ml Soln] 3 ml INHALATION RT-TID@05,,18 01/26/20 [History] Mag Hydrox/Aluminum Hyd/Simeth [Mylanta Maximum Strength Liq] 10 ml PO Q4H PRN 01/26/20 [History] Magnesium Hydroxide [Milk of Magnesia] 2,400 mg PO DAILY@119901/26/20 [History] Magnesium Hydroxide [Milk of Magnesia] 2,400 mg PO Q4HR PRN 01/26/20 [History] Menthol [Nice Cough Drops] 1 lozenge BUCCAL Q4H PRN 01/26/20 [History] Montelukast Sodium [Singulair] 10 mg PO Q24H PRN 01/26/20 [History] Na Phos,M-B/Na Phos,Di-Ba [Fleet Adult] 133 ml RECTAL Q96H PRN 01/26/20 [History] Ondansetron [Zofran] 4 mg PO Q6H PRN 01/26/20 [History] Pantoprazole Sodium [Protonix] 40 mg PO BID@0700,199901/26/20 [History] Sennosides-Docusate Sodium [Senokot-S] 2 tab PO BID@0700,209901/26/20 [History] Simethicone [Gas-X] 250 mg PO Q6H PRN 01/26/20 [History] Warfarin Sodium 6 mg PO HS@209901/26/20 [History] Warfarin [Coumadin] 3 mg PO HS@209901/26/20 [History] bisacodyL [Dulcolax] 10 mg RECTAL Q72H PRN 01/26/20 [History] fentaNYL 100MCG/HR PATCH [Duragesic 100MCG/HR] 1 patch TRANSDERM Q72H 01/26/20 [History] guaiFENesin [Diabetic Tussin Ex] 200 mg PO Q4H PRN 01/26/20 [History] Hydrophilic Cream [Triad Cream] 1 applic TOPICAL DAILY #1 tube 02/01/20 [Rx] Follow up Appointment(s)/Referral(s): Shar Piper MD [Primary Care Provider] - 1-2 days Discharge Disposition: TRANSFER TO SNF/F
[2020-02-01] MEDS: FUROSEMIDE 40 MG TAB PO SCH (13:11)
[2020-02-01] MEDS: HYDROPHILIC CREAM 180 GM TUBE TOPICAL SCH (13:11)
[2020-02-01] MEDS ORDERED: WARFARIN 5 MG TAB PO ONE (18:00)
== END 2020-02-01 15:00 | DRG 177 ==
LOC: EC 16:10 → 6NMEDSUR 18:43 → OBSVTOIN 18:44 → 6NMEDSUR 22:30
PROVIDERS: ADMIT Family Medicine; ATTEND Family Medicine
DX: U07.1 COVID-19 (principal); L89.153 Pressure ulcer of sacral region, stage 3; N39.0 Urinary tract infection, site not specified; Z68.42 Body mass index [BMI] 45.0-49.9, adult; J98.11 Atelectasis; J96.11 Chronic respiratory failure with hypoxia; Z66 Do not resuscitate; B96.4 Proteus (mirabilis) (morganii) as the cause of diseases classified elsewhere; D64.9 Anemia, unspecified; E11.22 Type 2 diabetes mellitus with diabetic chronic kidney disease; E11.622 Type 2 diabetes mellitus with other skin ulcer; E66.01 Morbid (severe) obesity due to excess calories; E78.5 Hyperlipidemia, unspecified; E83.51 Hypocalcemia; E88.81 Metabolic syndrome and other insulin resistance; F41.9 Anxiety disorder, unspecified; H40.9 Unspecified glaucoma; H91.90 Unspecified hearing loss, unspecified ear; N40.1 Benign prostatic hyperplasia with lower urinary tract symptoms; N39.498 Other specified urinary incontinence; R15.9 Full incontinence of feces; K59.09 Other constipation; I12.9 Hypertensive chronic kidney disease with stage 1 through stage 4 chronic kidney disease, or unspecified chronic kidney disease; I25.10 Atherosclerotic heart disease of native coronary artery without angina pectoris; Z86.718 Personal history of other venous thrombosis and embolism; Z79.01 Long term (current) use of anticoagulants; Z86.711 Personal history of pulmonary embolism; R91.8 Other nonspecific abnormal finding of lung field; J30.9 Allergic rhinitis, unspecified; Z86.79 Personal history of other diseases of the circulatory system; J44.9 Chronic obstructive pulmonary disease, unspecified; Z87.01 Personal history of pneumonia (recurrent); L98.499 Non-pressure chronic ulcer of skin of other sites with unspecified severity; M19.90 Unspecified osteoarthritis, unspecified site; N18.30 Chronic kidney disease, stage 3 unspecified; R31.29 Other microscopic hematuria; R79.1 Abnormal coagulation profile; J84.10 Pulmonary fibrosis, unspecified; Z99.81 Dependence on supplemental oxygen; Z86.14 Personal history of Methicillin resistant Staphylococcus aureus infection; Z79.899 Other long term (current) drug therapy; Z79.82 Long term (current) use of aspirin; Z79.4 Long term (current) use of insulin; Z74.01 Bed confinement status; R53.81 Other malaise; Z90.49 Acquired absence of other specified parts of digestive tract; Z90.89 Acquired absence of other organs; Z95.828 Presence of other vascular implants and grafts; Z98.49 Cataract extraction status, unspecified eye; R26.2 Difficulty in walking, not elsewhere classified; Z80.41 Family history of malignant neoplasm of ovary; Z80.0 Family history of malignant neoplasm of digestive organs; Z82.49 Family history of ischemic heart disease and other diseases of the circulatory system; Z79.51 Long term (current) use of inhaled steroids
CPT/HCPCS: 36415; 71045; 71046; 80048; 80053; 81001; 82550; 82728; 83605; 83615; 83735; 84145; 84484; 85025; 85379; 85384; 85610; 85730; 86140; 87040; 87077; 87086; 87186; 93005; 96361; 96374; 99285

== ENCOUNTER 2020-06-21 12:57 | Emergency (ER) | payer MEDICARE, BC, OTHER ==
[2020-06-21 13:01] VITALS: RESP 20
--- NOTE | 2020-06-21 13:54 | ED ---
General Adult HPI - General Chief complaint: Abdominal Pain Stated complaint: abd pain Time Seen by Provider: 06/21/20 13:01 Source: patient, EMS, RN notes reviewed, old records reviewed Mode of arrival: EMS Limitations: no limitations - History of Present Illness Initial comments: 85-year-old male presents for need for abdominal CT. He had presented to an outside emergency department with left-sided abdominal pain which is been present for the past 24-48 hours. At the time my evaluation the patient states that his pain is improved. He was scheduled to get a CT of his abdomen pelvis on Wednesday which is 4 days from now. It was attempted to obtain a CT at outside hospital however given the patient's body habitus he was unable to fit in the CT scanner and was sent to this emergency Department for CT. He does have a history of a known abdominal aortic aneurysm which the patient states is been operated on several times at at outside hospitals including [facility]. He's been told that he had an endoleak in the past but was not a candidate for surgery. He is currently on Coumadin with history of DVT. - Related Data Home Medications Medication Instructions Recorded Confirmed Atorvastatin [Lipitor] 20 mg PO HS@199908/20/16 06/21/20 Budesonide [Pulmicort] 0.5 mg INHALATION RT-BID@07,17008/20/16 06/21/20 Tamsulosin HCl [Flomax] 0.4 mg PO BID@699,199908/20/16 06/21/20 Acetaminophen Tab [Tylenol] 650 mg PO Q6H PRN 12/29/17 06/21/20 Melatonin 5 mg PO HS@199912/29/17 06/21/20 Brimonidine Tartrate [Alphagan P 1 drop BOTH EYES BID@0500,1700 07/02/19 06/21/20 0.1% Ophth Soln] Insulin Detemir [Levemir Flextouch] 90 units SQ HS@209907/02/19 06/21/20 Latanoprost/Pf [Latanoprost 0.005% 1 drop BOTH EYES HS@209907/02/19 06/21/20 Eye Drop] Liquacel (Amino Acids) 30 ml PO DAILY@69907/02/19 06/21/20 Losartan [Cozaar] 25 mg PO DAILY@69907/02/19 06/21/20 Multivitamins, Thera [Multivitamin 1 tab PO DAILY@69907/02/19 06/21/20 (formulary)] Polyethylene Glycol 3350 [Miralax] 17 gm PO DAILY@69907/02/19 06/21/20 Sertraline HCl [Zoloft] 25 mg PO DAILY@199907/02/19 06/21/20 Spironolactone [Aldactone] 25 mg PO DAILY@69907/02/19 06/21/20 Bisacodyl 10 mg PO Q48H PRN 01/26/20 06/21/20 Dextran 70/Hypromellose [Genteal 1 drop BOTH EYES BID@699,199901/26/20 06/21/20 Tears 0.1%-0.3% Drop] Furosemide [Lasix] 20 mg PO DAILY@119901/26/20 06/21/20 Furosemide [Lasix] 40 mg PO DAILY@69901/26/20 06/21/20 Insulin Aspart [NovoLOG Flexpen] 14 unit SQ AC-TID@,,01/26/20 06/21/20 Ipratropium-Albuterol Nebulize 3 ml INHALATION RT-TID@,,01/26/20 06/21/20 [Duoneb 0.5 mg-3 mg/3 ml Soln] Mag Hydrox/Aluminum Hyd/Simeth 10 ml PO Q4H PRN 01/26/20 06/21/20 [Mylanta Maximum Strength Liq] Magnesium Hydroxide [Milk of 2,400 mg PO DAILY@119901/26/20 06/21/20 Magnesia] Magnesium Hydroxide [Milk of 2,400 mg PO Q48H PRN 01/26/20 06/21/20 Magnesia] Menthol [Nice Cough Drops] 1 lozenge BUCCAL Q4H PRN 01/26/20 06/21/20 Montelukast Sodium [Singulair] 10 mg PO DAILY PRN 01/26/20 06/21/20 Na Phos,M-B/Na Phos,Di-Ba [Fleet 133 ml RECTAL Q96H PRN 01/26/20 06/21/20 Adult] Ondansetron [Zofran] 4 mg PO Q6H PRN 01/26/20 06/21/20 Pantoprazole Sodium [Protonix] 40 mg PO BID@0700,199901/26/20 06/21/20 Simethicone [Gas-X] 250 mg PO Q6H PRN 01/26/20 06/21/20 bisacodyL [Dulcolax] 10 mg RECTAL Q72H PRN 01/26/20 06/21/20 guaiFENesin [Diabetic Tussin Ex] 200 mg PO Q4H PRN 01/26/20 06/21/20 Ascorbic Acid [Vitamin C] 250 mg PO TID@0700,1300,209906/21/20 06/21/20 Docusate [Colace] 100 mg PO BID@0700,17006/21/20 06/21/20 Famotidine [Pepcid] 20 mg PO HS@209906/21/20 06/21/20 Ferrous Sulfate [Feosol] 325 mg PO TID@0700,1300,209906/21/20 06/21/20 Warfarin [Coumadin] 7.5 mg PO HS@17006/21/20 06/21/20 Previous Rx's Medication Instructions Recorded fentaNYL 100MCG/HR PATCH 1 patch TRANSDERM Q72H #1 patch 02/01/20 [Duragesic 100MCG/HR] Allergies Allergy/AdvReac Type Severity Reaction Status Date / Time No Known Allergies Allergy Verified 06/21/20 14:48 Review of Systems ROS Statement: Those systems with pertinent positive or pertinent negative responses have been documented in the HPI. ROS Other: All systems not noted in ROS Statement are negative. 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 Patient also is known to have abdominal aortic aneurysm- 11.6 cm. History of Any Multi-Drug Resistant Organisms: MRSA Date of last positivie culture/infection: 03/27/18 MDRO Source:: SPUTUM MRSA Past Surgical History: Appendectomy, Hernia Repair, Tonsillectomy Additional Past Surgical History / Comment(s): cataract, hydrocele, :9 stents in legs/ 2 aortic stents", rt ext iliac stent 05/29/16 at [facility] Past Anesthesia/Blood Transfusion Reactions: No Reported Reaction Past Psychological History: No Psychological Hx Reported Smoking Status: Never smoker Past Alcohol Use History: None Reported Past Drug Use History: None Reported - Past Family History Mother Family Medical History: Cancer Additional Family Medical History / Comment(s): open heart surgery, CA ovarian and liver, lyme disease General Exam Limitations: no limitations General appearance: alert, in no apparent distress Head exam: Present: atraumatic, normocephalic Eye exam: Present: normal appearance, PERRL ENT exam: Present: normal exam Neck exam: Present: normal inspection. Absent: tenderness, meningismus Respiratory exam: Present: normal lung sounds bilaterally. Absent: respiratory distress, wheezes Cardiovascular Exam: Present: regular rate, normal rhythm GI/Abdominal exam: Present: soft. Absent: distended, tenderness, guarding, rebound Extremities exam: Present: pedal edema Neurological exam: Present: alert, oriented X3, CN II-XII intact. Absent: motor sensory deficit Psychiatric exam: Present: normal affect, normal mood Skin exam: Present: warm, dry, intact Course Vital Signs 06/21/20 06/21/20 06/21/20 12:58 14:18 15:15 Temperature 98.5 F Pulse Rate 88 85 85 Respiratory 20 20 20 Rate Blood Pressure 127/85 127/88 135/85 O2 Sat by Pulse 96 99 97 Oximetry 06/21/20 15:40 Temperature Pulse Rate 78 Respiratory 20 Rate Blood Pressure 143/83 O2 Sat by Pulse 95 Oximetry - Reevaluation(s) Reevaluation #1: 06/21/20 13:54 Pre-transfer laboratory studies reveal white blood cell count 10.5, hemoglobin 8.5, platelets of 211. Patient had a sodium of 138, potassium 4.0. Serum creatinine was 1.0. AST and ALT as well as alkaline phosphatase were within normal limits. Total bili was 0.6. Lactic acid 1.3. Reevaluation #2: 06/21/20 14:57 I did discuss the case with the patient's daughter on multiple occasions, initially the patient declined surgery, after the son had arrived the patient had indicated that he would be agreeable with surgery if it could help. I discussed case with Dr. Schmidt at the time when the patient was not agreeable with surgery. I did discuss case with Dr. Chen, after the patient and family had decided that they would be agreeable to surgery. Images are being reviewed. Patient has received K Sentra hemoglobin was 8.5 prior to transfer currently 8.3. Hemodynamics are stable. Patient is alert and oriented. Reevaluation #3: 06/21/20 15:06 Patient remains hemodynamically stable. No pain. Patient has been given K Sentra and vitamin K. Reevaluation #4: 06/21/20 15:13 The lab has been notified of the need for attention blood products. Reevaluation #5: 06/21/20 15:53 I discussed case with the vascular surgeon at [facility] Dr. Astorga who will accept patient in transfer. Medical Decision Making - Medical Decision Making 85-year-old male with a history of abdominal aortic aneurysm and presented from outside hospital with need for computed tomography scan. Pain has improved at the time my evaluation. Initially began yesterday morning. He was taken to outside emergency department 24 hours after the onset of pain. I was able to obtain some additional history from the patient's daughter Juana. Initially the patient had declined operative evaluation as he been previously told he was not a candidate for further operations. His son presents to the emergency department at approximately 3 PM who indicated that he was told that he would not operate unless it was an emergency situation. At this time the patient does indicate that he would undergo an operation if necessary. He had previously indicated to me that he was not planning on further operation and that he was a DO NOT RESUSCITATE. Hemoglobin 8.3 from recent of 8.5. Hemodynamics are stable, however his blood pressure did trend to approximately patient was started on esmolol. Normal lactic acid. INR 3.6 which is reversed. - Lab Data Result diagrams: 06/21/20 14:12 06/21/20 14:12 Lab Results 06/21/20 06/21/20 06/21/20 Range/Units 14:12 14:12 14:12 WBC 9.7 (3.8-10.6) k/uL RBC 3.11 L (4.30-5.90) m/uL Hgb 8.3 L (13.0-17.5) gm/dL Hct 25.8 L (39.0-53.0) % MCV 83.0 (80.0-100.0) fL MCH 26.7 (25.0-35.0) pg MCHC 32.1 (31.0-37.0) g/dL RDW 19.0 H (11.5-15.5) % Plt Count 217 (150-450) k/uL MPV 9.0 Neutrophils % 81 % Lymphocytes % 10 % Monocytes % 6 % Eosinophils % 1 % Basophils % 0 % Neutrophils # 7.9 H (1.3-7.7) k/uL Lymphocytes # 1.0 (1.0-4.8) k/uL Monocytes # 0.6 (0-1.0) k/uL Eosinophils # 0.1 (0-0.7) k/uL Basophils # 0.0 (0-0.2) k/uL Hypochromasia Slight Poikilocytosis Slight Anisocytosis Slight PT 34.3 H (9.0-12.0) sec INR 3.6 H (<1.2) APTT 44.9 H (22.0-30.0) sec Sodium 137 (137-145) mmol/L Potassium 3.8 (3.5-5.1) mmol/L Chloride 98 (98-107) mmol/L Carbon Dioxide 31 H (22-30) mmol/L Anion Gap 8 mmol/L BUN 32 H (9-20) mg/dL Creatinine 0.88 (0.66-1.25) mg/dL Est GFR (CKD-EPI)AfAm >90 (>60 ml/min/1.73 sqM) Est GFR (CKD-EPI)NonAf 79 (>60 ml/min/1.73 sqM) Glucose 145 H (74-99) mg/dL Calcium 8.7 (8.4-10.2) mg/dL Total Bilirubin 0.6 (0.2-1.3) mg/dL AST 20 (17-59) U/L ALT 14 (4-49) U/L Alkaline Phosphatase 64 (38-126) U/L Total Protein 6.1 L (6.3-8.2) g/dL Albumin 3.3 L (3.5-5.0) g/dL Critical Care Time Critical Care Time: Yes Total Critical Care Time: 95 Disposition Clinical Impression: AAA (abdominal aortic aneurysm), Endoleak of aortic graft, Ruptured abdominal aortic aneurysm (AAA) [facility] Condition: Serious Is patient prescribed a controlled substance at d/c from ED?: No Referrals: Shar Piper MD [Primary Care Provider] - 1-2 days Time of Disposition: 15:02 - Out of Hospital Transfer - Req. Specs Out of Hospital Transfer - Requested Specifics: Other Emergency Center ([facility]
[2020-06-21 14:25] LABS: Anisocytosis Slight; Basophils % (A) 0 %; Eosinophils # (A) 0.1 k/uL (0-0.7); Eosinophils % (A) 1 %; HCT 25.8 % (39.0-53.0); HGB 8.3 gm/dL (13.0-17.5); Hypochromasia Slight; Lymphocytes % (A) 10 %; MCH 26.7 pg (25.0-35.0); MCHC 32.1 g/dL (31.0-37.0); Monocytes # (A) 0.6 k/uL (0-1.0); Monocytes % (A) 6 %; Neutrophils # (A) 7.9 k/uL (1.3-7.7); Neutrophils % (A) 81 %; Platelet Count 217 k/uL (150-450); Poikilocytosis Slight; RBC 3.11 m/uL (4.30-5.90); WBC 9.7 k/uL (3.8-10.6)
--- NOTE | 2020-06-21 14:25 | CT ---
EXAMINATION TYPE: CT angio thor/abd pel aorta DATE OF EXAM: 06/21/2020 COMPARISON: 07/01/2019 HISTORY: Pain with history of known aneurysmal leak. CT DLP: 5980.1 mGycm CONTRAST: CTA thoracic and abdominal aorta with 3-D reconstruction is performed and without and with IV Contras t, patient injected with 125 mL of Isovue 370. Contrast CTA of the thoracic and abdominal aorta was performed from the lung apex through the base of the pelvis. 3-D reconstruction imaging obtained at a separate workstation. CT Chest: THORACIC AORTA: There is no evidence for aneurysm. No dissection or mediastinal hematoma. Mild ath eromatous changes are seen. LUNGS: There is left basilar atelectasis and small effusions. Hyperinflation compatible with COPD. No evidence for nodule or mass. MEDIASTINUM: The heart is not enlarged. No evidence for mediastinal mass or adenopathy. HILAR STRUCTURES: No evidence for mass. No hilar adenopathy is appreciated. OTHER: No significant abnormality. CONTRAST CT ABDOMEN AND PELVIS ABDOMINAL AORTA: There is a large infrarenal abdominal aortic aneurysm with aortic stent graft noted. There are multiple foci of endoleak. There is stranding adjacent to the aneurysm on the left compati ble with leak. Impending rupture is not excluded. Outside study is incomplete therefore direct compar chasity is difficult. Aneurysm currently measures 14.2 x 13.7 cm versus 11.8 x 10.5 cm previously. LIVER/GB- No significant abnormality is seen. PANCREAS- No significant abnormality is seen. SPLEEN- No significant abnormality is seen. ADRENALS- No significant abnormality is seen. KIDNEYS/BLADDER-enlarged urinary bladder with diverticula seen. BOWEL- No Significant abnormality GENITAL ORGANS: No gross abnormality seen. LYMPH NODES- No greater than 1cm abdominal or pelvic lymph nodes areappreciated. OSSEOUS STRUCTURES- No significant abnormality is seen. OTHER- No significant abnormality is seen. IMPRESSION- 1. Leaking and enlarging abdominal aortic aneurysm with impending rupture not excluded. Please see ab michael discussion.
[2020-06-21] MEDS ORDERED: HUMAN PROTHROMBIN COMPLX IV ONE (14:30)
[2020-06-21 14:34] LABS: INR 3.6 (<1.2); Partial Thromboplastin Time 44.9 sec (22.0-30.0); Prothrombin Time 34.3 sec (9.0-12.0)
[2020-06-21] MEDS ORDERED: Kcentra PER PHARMACY 1 EACH MISC MISCELLANE PRN (14:34)
[2020-06-21] MEDS ORDERED: PHYTONADIONE 10 MG in SODIUM CHLORIDE 0.9% 50 ML IVPB STA (14:43)
[2020-06-21 14:50] LABS: ALT 14 U/L (4-49); AST 20 U/L (17-59); African American GFR (CKD) >90 (>60 ml/min/1.73 sqM); Albumin 3.3 g/dL (3.5-5.0); Alkaline Phosphatase 64 U/L (38-126); Anion Gap 8 mmol/L; Blood Urea Nitrogen 32 mg/dL (9-20); Calcium 8.7 mg/dL (8.4-10.2); Carbon Dioxide 31 mmol/L (22-30); Chloride 98 mmol/L (98-107); Glucose 145 mg/dL (74-99); Non-African American GFR(CKD) 79 (>60 ml/min/1.73 sqM); Potassium 3.8 mmol/L (3.5-5.1); Sodium 137 mmol/L (137-145); Total Bilirubin 0.6 mg/dL (0.2-1.3); Total Protein 6.1 g/dL (6.3-8.2)
[2020-06-21] MEDS ORDERED: ESMOLOL IN SODIUM CHLORIDE PMX 2.5 GM in SALINE 1 250ML.BAG IV ONE (15:23)
[2020-06-21 16:33] VITALS: PULSE 72
[2020-06-21 16:56] VITALS: BP 120/72; TEMP 98.8
== END 2020-06-21 17:01 | disposition other institution (70) ==
LOC: EC 12:57
DX: I71.3 Abdominal aortic aneurysm, ruptured (principal); T82.330A Leakage of aortic (bifurcation) graft (replacement), initial encounter; Z66 Do not resuscitate; J44.9 Chronic obstructive pulmonary disease, unspecified; N40.0 Benign prostatic hyperplasia without lower urinary tract symptoms; E78.5 Hyperlipidemia, unspecified; K21.9 Gastro-esophageal reflux disease without esophagitis; D50.9 Iron deficiency anemia, unspecified; R53.1 Weakness; I25.10 Atherosclerotic heart disease of native coronary artery without angina pectoris; M10.9 Gout, unspecified; K59.00 Constipation, unspecified; I12.9 Hypertensive chronic kidney disease with stage 1 through stage 4 chronic kidney disease, or unspecified chronic kidney disease; F32.9 Major depressive disorder, single episode, unspecified; E11.22 Type 2 diabetes mellitus with diabetic chronic kidney disease; N18.30 Chronic kidney disease, stage 3 unspecified; H40.9 Unspecified glaucoma; Z79.51 Long term (current) use of inhaled steroids; Z79.4 Long term (current) use of insulin; Z79.899 Other long term (current) drug therapy; Z79.1 Long term (current) use of non-steroidal anti-inflammatories (NSAID); Z79.01 Long term (current) use of anticoagulants; Z86.711 Personal history of pulmonary embolism; Z86.718 Personal history of other venous thrombosis and embolism; Z86.14 Personal history of Methicillin resistant Staphylococcus aureus infection
CPT/HCPCS: 36415; 86900; 86901; 80053; 85025; 85610; 85730; 86850; 71275; 74174; 99291; 99292; 96365; 96367; 96375; J3430; C9132; Q9967

== ENCOUNTER 2020-07-15 18:37 | Inpatient (IN) | payer MEDICARE, BC, OTHER ==
[2020-07-15] MEDS ORDERED: SODIUM CHLORIDE 0.9% 500 ML 500 ML IV STA (19:36)
[2020-07-15] MEDS ORDERED: SODIUM CHLORIDE 0.9% 1,000 ML IV STA (19:36)
--- NOTE | 2020-07-15 19:39 | ED ---
General Adult HPI - General Chief complaint: Recheck/Abnormal Lab/Rx Stated complaint: altered mental status Time Seen by Provider: 07/15/20 19:15 Source: patient, EMS, RN notes reviewed Mode of arrival: EMS Limitations: no limitations - History of Present Illness Initial comments: Patient is a pleasant 85-year-old male presenting to the emergency Department with complaints of dehydration. Patient was recently in the hospital with diagnosis of large abdominal aortic aneurysm with possible leak. Patient was transferred to . Decision was made not to have surgery. Patient states he is not a candidate for surgery. Patient states when questioned directly if he would consider surgery if he was a candidate and he said no. Patient states he does feel somewhat dehydrated. Patient states that he was sent here for rehydration. Patient does not have other complaints at this time. - Related Data Home Medications Medication Instructions Recorded Confirmed Atorvastatin [Lipitor] 20 mg PO HS@199908/20/16 06/21/20 Budesonide [Pulmicort] 0.5 mg INHALATION RT-BID@0700,17008/20/16 06/21/20 Tamsulosin HCl [Flomax] 0.4 mg PO BID@07,199908/20/16 06/21/20 Acetaminophen Tab [Tylenol] 650 mg PO Q6H PRN 12/29/17 06/21/20 Melatonin 5 mg PO HS@199912/29/17 06/21/20 Brimonidine Tartrate [Alphagan P 1 drop BOTH EYES BID@0500,1700 07/02/19 06/21/20 0.1% Ophth Soln] Insulin Detemir [Levemir Flextouch] 90 units SQ HS@209907/02/19 06/21/20 Latanoprost/Pf [Latanoprost 0.005% 1 drop BOTH EYES HS@209907/02/19 06/21/20 Eye Drop] Liquacel (Amino Acids) 30 ml PO DAILY@69907/02/19 06/21/20 Losartan [Cozaar] 25 mg PO DAILY@69907/02/19 06/21/20 Multivitamins, Thera [Multivitamin 1 tab PO DAILY@69907/02/19 06/21/20 (formulary)] Polyethylene Glycol 3350 [Miralax] 17 gm PO DAILY@69907/02/19 06/21/20 Sertraline HCl [Zoloft] 25 mg PO DAILY@199907/02/19 06/21/20 Spironolactone [Aldactone] 25 mg PO DAILY@69907/02/19 06/21/20 Bisacodyl 10 mg PO Q48H PRN 01/26/20 06/21/20 Dextran 70/Hypromellose [Genteal 1 drop BOTH EYES BID@699,199901/26/2006/21 Tears 0.1%-0.3% Drop] Furosemide [Lasix] 20 mg PO DAILY@119901/26/20 06/21/20 Furosemide [Lasix] 40 mg PO DAILY@69901/26/20 06/21/20 Insulin Aspart [NovoLOG Flexpen] 14 unit SQ AC-TID@,,01/26/20 06/21/20 Ipratropium-Albuterol Nebulize 3 ml INHALATION RT-TID@,,01/26/20 06/21/20 [Duoneb 0.5 mg-3 mg/3 ml Soln] Mag Hydrox/Aluminum Hyd/Simeth 10 ml PO Q4H PRN 01/26/20 06/21/20 [Mylanta Maximum Strength Liq] Magnesium Hydroxide [Milk of 2,400 mg PO DAILY@119901/26/20 06/21/20 Magnesia] Magnesium Hydroxide [Milk of 2,400 mg PO Q48H PRN 01/26/20 06/21/20 Magnesia] Menthol [Nice Cough Drops] 1 lozenge BUCCAL Q4H PRN 01/26/20 06/21/20 Montelukast Sodium [Singulair] 10 mg PO DAILY PRN 01/26/20 06/21/20 Na Phos,M-B/Na Phos,Di-Ba [Fleet 133 ml RECTAL Q96H PRN 01/26/20 06/21/20 Adult] Ondansetron [Zofran] 4 mg PO Q6H PRN 01/26/20 06/21/20 Pantoprazole Sodium [Protonix] 40 mg PO BID@699,199901/26/20 06/21/20 Simethicone [Gas-X] 250 mg PO Q6H PRN 01/26/20 06/21/20 bisacodyL [Dulcolax] 10 mg RECTAL Q72H PRN 01/26/20 06/21/20 guaiFENesin [Diabetic Tussin Ex] 200 mg PO Q4H PRN 01/26/20 06/21/20 Ascorbic Acid [Vitamin C] 250 mg PO TID@0700,1300,209906/21/20 06/21/20 Docusate [Colace] 100 mg PO BID@0700,1700 06/21/20 06/21/20 Famotidine [Pepcid] 20 mg PO HS@209906/21/20 06/21/20 Ferrous Sulfate [Feosol] 325 mg PO TID@0700,1300,209906/21/20 06/21/20 Warfarin [Coumadin] 7.5 mg PO HS@1700 06/21/20 06/21/20 Previous Rx's Medication Instructions Recorded fentaNYL 100MCG/HR PATCH 1 patch TRANSDERM Q72H #1 patch 02/01/20 [Duragesic 100MCG/HR] Allergies Allergy/AdvReac Type Severity Reaction Status Date / Time No Known Allergies Allergy Verified 06/21/20 14:48 Review of Systems ROS Statement: Those systems with pertinent positive or pertinent negative responses have been documented in the HPI. ROS Other: All systems not noted in ROS Statement are negative. Constitutional: Denies: fever Eyes: Denies: eye pain ENT: Denies: ear pain Respiratory: Denies: cough Cardiovascular: Denies: chest pain Endocrine: Denies: fatigue Gastrointestinal: Reports: as per HPI. 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 Patient also is known to have abdominal aortic aneurysm- 11.6 cm. History of Any Multi-Drug Resistant Organisms: MRSA Date of last positivie culture/infection: 03/27/18 MDRO Source:: SPUTUM MRSA Past Surgical History: Appendectomy, Hernia Repair, Tonsillectomy Additional Past Surgical History / Comment(s): cataract, hydrocele, :9 stents in legs/ 2 aortic stents", rt ext iliac stent 05/29/16 at [place] Past Anesthesia/Blood Transfusion Reactions: No Reported Reaction Past Psychological History: No Psychological Hx Reported Smoking Status: Never smoker Past Alcohol Use History: None Reported Past Drug Use History: None Reported - Past Family History Mother Family Medical History: Cancer Additional Family Medical History / Comment(s): open heart surgery, CA ovarian and liver, lyme disease General Exam Limitations: altered mental status General appearance: alert, in no apparent distress, obese Head exam: Present: atraumatic Eye exam: Present: normal appearance Neck exam: Present: normal inspection Respiratory exam: Present: normal lung sounds bilaterally Cardiovascular Exam: Present: regular rate, normal rhythm Expanded Peripheral pulses: 2+: Radial (R), Radial (L), Dorsalis Pedis (R), Dorsalis Pedis (L) GI/Abdominal exam: Present: soft. Absent: distended, tenderness, pulsatile mass Extremities exam: Present: pedal edema Neurological exam: Present: alert, oriented X3 Expanded Neurological exam: Present: protecting the airway Patient oriented to: Present: person, place, time Speech: Present: fluid speech Eye Response: (4) open spontaneously Motor Response: (6) obeys commands Verbal Response: (5) oriented Psychiatric exam: Present: normal affect, normal mood Skin exam: Present: normal color Course Vital Signs 07/15/20 07/15/20 18:45 19:01 Temperature 98.7 F Pulse Rate 75 Respiratory 16 16 Rate Blood Pressure 131/68 O2 Sat by Pulse 98 Oximetry Medical Decision Making - Medical Decision Making Patient reevaluated and resting comfortably in bed. Son is present who helps provide more history. Patient and son both agree that the aneurysm is not anything that needs to be addressed at this point. They did go to [place] and has been decided that the week is chronic and patient is not a surgical candidate. They do not want patient to be in hospice anymore and do feel that he will need placement. Case was discussed with practitioner Jorge, covering for Dr. Piper, who will admit. crisis worker will be consult. - Lab Data Result diagrams: 07/15/20 19:59 07/15/20 19:59 Lab Results 07/15/20 07/15/20 07/15/20 Range/Units 19:59 19:59 19:59 WBC 7.4 (3.8-10.6) k/uL RBC 3.46 L (4.30-5.90) m/uL Hgb 9.2 L (13.0-17.5) gm/dL Hct 30.4 L (39.0-53.0) % MCV 87.7 (80.0-100.0) fL MCH 26.7 (25.0-35.0) pg MCHC 30.4 L (31.0-37.0) g/dL RDW 19.4 H (11.5-15.5) % Plt Count 254 (150-450) k/uL MPV 7.2 Neutrophils % 75 % Lymphocytes % 13 % Monocytes % 6 % Eosinophils % 4 % Basophils % 1 % Neutrophils # 5.6 (1.3-7.7) k/uL Lymphocytes # 1.0 (1.0-4.8) k/uL Monocytes # 0.5 (0-1.0) k/uL Eosinophils # 0.3 (0-0.7) k/uL Basophils # 0.0 (0-0.2) k/uL Hypochromasia Marked Poikilocytosis Moderate Anisocytosis Slight PT 13.1 H (9.0-12.0) sec INR 1.3 H (<1.2) APTT 22.2 (22.0-30.0) sec Sodium 131 L (137-145) mmol/L Potassium 4.2 (3.5-5.1) mmol/L Chloride 94 L (98-107) mmol/L Carbon Dioxide 33 H (22-30) mmol/L Anion Gap 4 mmol/L BUN 13 (9-20) mg/dL Creatinine 0.60 L (0.66-1.25) mg/dL Est GFR (CKD-EPI)AfAm >90 (>60 ml/min/1.73 sqM) Est GFR (CKD-EPI)NonAf >90 (>60 ml/min/1.73 sqM) Glucose 277 H (74-99) mg/dL Calcium 8.4 (8.4-10.2) mg/dL Total Bilirubin 0.8 (0.2-1.3) mg/dL AST 25 (17-59) U/L ALT 11 (4-49) U/L Alkaline Phosphatase 73 (38-126) U/L Total Protein 5.8 L (6.3-8.2) g/dL Albumin 2.8 L (3.5-5.0) g/dL Amylase <30 L (30-110) U/L Lipase 21 L (23-300) U/L Disposition Clinical Impression: Dehydration, Weakness of both lower limbs, AAA (abdominal aortic aneurysm) Disposition: ADMITTED IP TO THIS HOSP Is patient prescribed a controlled substance at d/c from ED?: No Referrals: Shar Piper MD [Primary Care Provider] - 1-2 days Decision Time: 22:25
[2020-07-15 20:08] LABS: Anisocytosis Slight; Basophils % (A) 1 %; Eosinophils # (A) 0.3 k/uL (0-0.7); Eosinophils % (A) 4 %; HCT 30.4 % (39.0-53.0); HGB 9.2 gm/dL (13.0-17.5); Hypochromasia Marked; Lymphocytes % (A) 13 %; MCH 26.7 pg (25.0-35.0); MCHC 30.4 g/dL (31.0-37.0); MCV 87.7 fL (80.0-100.0); Mean Platelet Volume 7.2; Monocytes # (A) 0.5 k/uL (0-1.0); Monocytes % (A) 6 %; Neutrophils # (A) 5.6 k/uL (1.3-7.7); Neutrophils % (A) 75 %; Platelet Count 254 k/uL (150-450); Poikilocytosis Moderate; RBC 3.46 m/uL (4.30-5.90); RDW 19.4 % (11.5-15.5); WBC 7.4 k/uL (3.8-10.6)
[2020-07-15 20:16] LABS: ALT 11 U/L (4-49); AST 25 U/L (17-59); African American GFR (CKD) >90 (>60 ml/min/1.73 sqM); Albumin 2.8 g/dL (3.5-5.0); Alkaline Phosphatase 73 U/L (38-126); Amylase <30 U/L (30-110); Anion Gap 4 mmol/L; Blood Urea Nitrogen 13 mg/dL (9-20); Calcium 8.4 mg/dL (8.4-10.2); Carbon Dioxide 33 mmol/L (22-30); Chloride 94 mmol/L (98-107); Glucose 277 mg/dL (74-99); Lipase 21 U/L (23-300); Non-African American GFR(CKD) >90 (>60 ml/min/1.73 sqM); Potassium 4.2 mmol/L (3.5-5.1); Sodium 131 mmol/L (137-145); Total Bilirubin 0.8 mg/dL (0.2-1.3); Total Protein 5.8 g/dL (6.3-8.2)
[2020-07-15 21:17] LABS: INR 1.3 (<1.2); Partial Thromboplastin Time 22.2 sec (22.0-30.0); Prothrombin Time 13.1 sec (9.0-12.0)
--- NOTE | 2020-07-15 22:08 | XR ---
EXAMINATION TYPE: XR KUB DATE OF EXAM: 07/15/2020 8:42 PM CLINICAL HISTORY: Abdominal pain. History of abdominal aortic aneurysm. TECHNIQUE: Supine images of the abdomen and pelvis were obtained COMPARISON: CTA 06/21/2020. FINDINGS: Abdominal aortic stent graft redemonstrating significant curvature to the left. Right upper quadrant surgical clips. Embolization coils over the bilateral pelvis. Bilateral inguinal surgical c lips. Examination limited due to patient body habitus on [id number]. The visualized bowel gas esperanza ivana is nonspecific IMPRESSION: Visualized bowel gas pattern is nonspecific.
[2020-07-15] MEDS ORDERED: NALOXONE 0.4 MG/ML 1 ML VIAL IV PRN (22:25)
[2020-07-15] MEDS ORDERED: ACETAMINOPHEN TAB 325 MG TAB PO PRN (22:25)
[2020-07-16] MEDS: SODIUM CHLORIDE 0.9% 1,000 ML IV SCH ×2 (02:51→11:06)
[2020-07-16] MEDS ORDERED: HALOPERIDOL ORAL SOLN 10 MG/5 ML CUP PO PRN (06:31)
[2020-07-16] MEDS ORDERED: LORazepam 0.5 MG TAB PO PRN (06:31)
--- NOTE | 2020-07-16 08:04 | P.HPIM ---
History of Present Illness H&P Date: 07/16/20 Chief Complaint: Altered mental status/generalized weakness/deconditioning 85-year-old male was admitted to the hospital from the emergency department for dehydration. Patient has significant medical history of large abdominal aortic aneurysm measuring 11.6 cm with possible leakpatient was seen at [facility] decision was for no intervention due to multiple comorbidities. Patient additional significant medical history of hyperlipidemia, COPD, BPH, history of DVT/PE, hypertension, iron deficiency anemia, muscle weakness generalized, coronary artery disease, gout, chronic constipation, impaired hearing, chronic kidney failure stage III disease, anasarca, bedbound, mixed anxiety and depression, diabetes mellitus type 2, glaucoma, and osteoarthritis. Patient had extensive diagnostic workup in the emergency departmentclinical signs of dehydration. Patient a poor historian, patient able to answer questions to person only at this time. 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 Patient also is known to have abdominal aortic aneurysm- 11.6 cm. History of Any Multi-Drug Resistant Organisms: MRSA Date of last positivie culture/infection: 03/27/18 MDRO Source:: SPUTUM MRSA Past Surgical History: Appendectomy, Hernia Repair, Tonsillectomy Additional Past Surgical History / Comment(s): cataract, hydrocele, :9 stents in legs/ 2 aortic stents", rt ext iliac stent 05/29/16 at [place] Past Anesthesia/Blood Transfusion Reactions: No Reported Reaction Past Psychological History: No Psychological Hx Reported Smoking Status: Never smoker Past Alcohol Use History: None Reported Past Drug Use History: None Reported - Past Family History Mother Family Medical History: Cancer Additional Family Medical History / Comment(s): open heart surgery, CA ovarian and liver, lyme disease Medications and Allergies Home Medications and Allergies Comment(s): Medications and ALLERGIES reviewed Home Medications Medication Instructions Recorded Confirmed Type Amiodarone HCl [Pacerone] 200 mg PO DAILY@0900 07/15/20 07/15/20 History Carvedilol [Coreg] 3.125 mg PO BID@0900,209907/15/20 07/15/20 History Haloperidol Oral Soln [Haldol Oral 1 mg PO Q6H PRN 07/15/20 07/15/20 History Soln] LORazepam [Ativan] 0.5 - 1 mg PO Q4H PRN 07/15/20 07/15/20 History Lactulose [Constulose] 10 gm PO BID@0900,209907/15/20 07/15/20 History Melatonin 3 mg PO HS@209907/15/20 07/15/20 History Sennosides/Docusate Sodium [Senna 1 cap PO TID@0600,1400,2200 07/15/20 07/15/20 History Plus 8.6-50 mg Softgel] oxyCODONE ER [OxyCONTIN] 20 mg PO BID@0900,209907/15/20 07/15/20 History oxyCODONE HCL [OxyIR] 5 mg PO Q6H PRN 07/15/20 07/15/20 History Allergies Allergy/AdvReac Type Severity Reaction Status Date / Time No Known Allergies Allergy Verified 07/15/20 22:30 Physical Exam Vitals: Vital Signs Temp Pulse Resp BP Pulse Ox 07/16/20 07:02 97.7 F 85 18 138/82 97 07/15/20 19:01 16 07/15/20 18:45 98.7 F 75 16 131/68 98 Intake and Output 07/15/20 07/16/20 07/16/20 22:59 06:59 14:59 Other: Weight 136.078 kg - Constitutional General appearance: mild distress - EENT Eyes: PERRLA, poor dentition ENT: pharyngeal erythema Ears: bilateral: normal - Neck Carotids: bilateral: upstroke normal Thyroid: negative: normal size - Respiratory Respiratory: bilateral: diminished (Anterior and posterior lung mittal) - Cardiovascular Heart rate: 85 Heart sounds: normal: S1, S2 leg Peripheral Edema: bilateral: 4+ ankle Peripheral Edema: bilateral: 4+ foot Peripheral Edema: bilateral: 4+ radial pulse Peripheral Pulses: bilateral: Normal - Gastrointestinal General gastrointestinal: normal bowel sounds - Integumentary Oral mucous membranes dry Integumentary: decreased turgor, pale - Musculoskeletal Musculoskeletal: generalized weakness - Psychiatric Alert to person Disoriented to place, time and situation Per daughter significant change from 2 weeks ago 1 patient was alert and oriented 4 Anasarca Results CBC & Chem 7: 07/15/20 19:59 07/15/20 19:59 Labs: Abnormal Lab Results - Last 24 Hours (Table) 07/15/20 07/15/20 07/15/20 Range/Units 19:59 19:59 19:59 RBC 3.46 L (4.30-5.90) m/uL Hgb 9.2 L (13.0-17.5) gm/dL Hct 30.4 L (39.0-53.0) % MCHC 30.4 L (31.0-37.0) g/dL RDW 19.4 H (11.5-15.5) % PT 13.1 H (9.0-12.0) sec INR 1.3 H (<1.2) Sodium 131 L (137-145) mmol/L Chloride 94 L (98-107) mmol/L Carbon Dioxide 33 H (22-30) mmol/L Creatinine 0.60 L (0.66-1.25) mg/dL Glucose 277 H (74-99) mg/dL Total Protein 5.8 L (6.3-8.2) g/dL Albumin 2.8 L (3.5-5.0) g/dL Amylase <30 L (30-110) U/L Lipase 21 L (23-300) U/L Abdominal x-ray: report reviewed Thrombosis Risk Factor Assmnt - DVT/VTE Prophylaxis DVT/VTE Prophylaxis: Pharmacologic Prophylaxis ordered - Choose All That Apply Each Factor Represents 1 point: Abnormal pulmonary function (COPD), Medical pt on bed rest, Obesity (BMI >25) Each Risk Factor Represents 3 Points: Age 75 years or older, History of DVT/PE Thrombosis Risk Factor Assessment Total Risk Factor Score: 9 Thrombosis Risk Factor Assessment Level: High Risk Assessment and Plan Assessment: Altered mental status Dehydration Generalized weakness large abdominal aortic aneurysm measuring 11.6 cm with possible leakpatient was seen at [facility] decision was for no intervention. hyperlipidemia COPD BPH history of DVT/PE hypertension iron deficiency anemia muscle weakness generalized coronary artery disease gout chronic constipation impaired hearing chronic kidney failure stage III disease anasarca bedbound mixed anxiety and depression diabetes mellitus type 2 glaucoma osteoarthritis No code Plan: Altered mental statusmultifactorial possible dehydration with central nervous system depressantswe'll discontinue Haldol, use Ativan sparingly as needed, continue oxycodone extended release for pain and discomfort. Continue IV hydration and obtain urinalysis with urine culture for possible urinary tract infection Generalized deconditioningconsult with occupational and physical therapy for recommendations to transfer to [facility] facility Multiple comorbidities continue home medications Consultation with social work for transfer to group home facility as [facility] Monitor vital signs and diagnostics labs Continue medical management Further recommendations and treatment plan based on patient's clinical condition Time with Patient: Greater than 30
--- NOTE | 2020-07-16 08:14 | XR ---
EXAMINATION TYPE: XR chest 1V portable DATE OF EXAM: 07/16/2020 COMPARISON: Chest x-ray 01/30/2020, CT 06/21/2020 HISTORY: Shortness of breath TECHNIQUE: Single frontal view of the chest is obtained. FINDINGS: Findings are improved compared to prior exam. Aeration is better at the lung bases. Minima l basilar density is noted. No evident pneumothorax or pleural effusion. Heart is enlarged. There is underlying emphysematous change noted on CT. IMPRESSION: There may be some atelectasis or scarring, cardiomegaly. Follow-up as indicated. Correla te for pulmonary artery hypertension.
[2020-07-16 08:26] LABS: Anisocytosis Slight; Basophils % (A) 1 %; Eosinophils # (A) 0.3 k/uL (0-0.7); Eosinophils % (A) 4 %; HCT 27.9 % (39.0-53.0); Hypochromasia Moderate; Lymphocytes # (A) 1.1 k/uL (1.0-4.8); Lymphocytes % (A) 15 %; MCH 27.9 pg (25.0-35.0); MCHC 32.4 g/dL (31.0-37.0); MCV 86.1 fL (80.0-100.0); Mean Platelet Volume 7.9; Monocytes # (A) 0.4 k/uL (0-1.0); Monocytes % (A) 6 %; Neutrophils # (A) 5.3 k/uL (1.3-7.7); Neutrophils % (A) 73 %; Platelet Count 232 k/uL (150-450); Poikilocytosis Moderate; RBC 3.24 m/uL (4.30-5.90); RDW 19.4 % (11.5-15.5); WBC 7.2 k/uL (3.8-10.6)
[2020-07-16 08:41] LABS: ALT 10 U/L (4-49); AST 19 U/L (17-59); African American GFR (CKD) >90 (>60 ml/min/1.73 sqM); Albumin 2.7 g/dL (3.5-5.0); Albumin/Globulin Ratio 0.9; Alkaline Phosphatase 78 U/L (38-126); Anion Gap 2 mmol/L; Blood Urea Nitrogen 11 mg/dL (9-20); Calcium 8.3 mg/dL (8.4-10.2); Carbon Dioxide 32 mmol/L (22-30); Chloride 98 mmol/L (98-107); Globulin 3.1 g/dL; Glucose 239 mg/dL (74-99); Non-African American GFR(CKD) 88 (>60 ml/min/1.73 sqM); Potassium 3.9 mmol/L (3.5-5.1); Sodium 132 mmol/L (137-145); Total Bilirubin 0.9 mg/dL (0.2-1.3); Total Protein 5.8 g/dL (6.3-8.2)
[2020-07-16] MEDS ORDERED: ENOXAPARIN 40 MG/0.4 ML SYRINGE SQ SCH (09:00)
[2020-07-16] MEDS: AMIODARONE 200 MG TAB PO SCH (09:13)
[2020-07-16] MEDS: carvediloL 3.125 MG TAB PO SCH ×2 (09:13→22:02)
[2020-07-16] MEDS: oxyCODONE ER 20 MG TAB.ER.12H PO SCH ×2 (09:13→21:20)
[2020-07-16] MEDS: LACTULOSE 20 GM/30 ML CUP PO SCH ×2 (09:15→21:20)
[2020-07-16 11:40] LABS: Amorphous Sediment,Urine Rare /hpf; Appearance,Urine Turbid (Clear); Bacteria,Urine Many /hpf; Bilirubin,Urine Negative (Negative); Blood,Urine Large (Negative); Color,Urine Yellow; Glucose,Urine (UA) Negative (Negative); Ketones,Urine Negative (Negative); Leukocyte Esterase,Urine Large (Negative); Mucus,Urine Rare /hpf; Nitrite,Urine Negative (Negative); Protein,Urine 1+ (Negative); RBC,Urine 114 /hpf (0-5); Specific Gravity,Urine 1.016 (1.001-1.035); WBC,Urine >182 /hpf (0-5)
[2020-07-16] MEDS: SENNOSIDES-DOCUSATE SODIUM 1 EACH TAB PO SCH ×2 (16:13→21:20)
[2020-07-16] MEDS: MELATONIN 3 MG TABLET PO SCH (21:20)
[2020-07-17] MEDS: SODIUM CHLORIDE 0.9% 1,000 ML IV SCH ×2 (01:43→14:20)
[2020-07-17] MEDS: SENNOSIDES-DOCUSATE SODIUM 1 EACH TAB PO SCH ×3 (05:25→21:20)
[2020-07-17 06:39] LABS: Anisocytosis Slight; Basophils # (A) 0.1 k/uL (0-0.2); Basophils % (A) 1 %; Eosinophils # (A) 0.3 k/uL (0-0.7); Eosinophils % (A) 4 %; HCT 23.8 % (39.0-53.0); HGB 7.7 gm/dL (13.0-17.5); Hypochromasia Marked; Lymphocytes # (A) 1.1 k/uL (1.0-4.8); Lymphocytes % (A) 13 %; MCH 28.2 pg (25.0-35.0); MCHC 32.3 g/dL (31.0-37.0); MCV 87.5 fL (80.0-100.0); Mean Platelet Volume 6.7; Monocytes # (A) 0.6 k/uL (0-1.0); Monocytes % (A) 7 %; Neutrophils # (A) 6.6 k/uL (1.3-7.7); Neutrophils % (A) 74 %; Platelet Count 267 k/uL (150-450); Poikilocytosis Moderate; RBC 2.73 m/uL (4.30-5.90); RDW 19.6 % (11.5-15.5); WBC 8.8 k/uL (3.8-10.6)
[2020-07-17 06:58] LABS: ALT 10 U/L (4-49); AST 19 U/L (17-59); African American GFR (CKD) 83 (>60 ml/min/1.73 sqM); Albumin 2.5 g/dL (3.5-5.0); Albumin/Globulin Ratio 0.9; Alkaline Phosphatase 63 U/L (38-126); Anion Gap 4 mmol/L; Blood Urea Nitrogen 19 mg/dL (9-20); Calcium 7.8 mg/dL (8.4-10.2); Carbon Dioxide 31 mmol/L (22-30); Chloride 97 mmol/L (98-107); Globulin 2.8 g/dL; Glucose 265 mg/dL (74-99); Magnesium 1.9 mg/dL (1.6-2.3); Non-African American GFR(CKD) 72 (>60 ml/min/1.73 sqM); Sodium 132 mmol/L (137-145); Total Bilirubin 0.7 mg/dL (0.2-1.3); Total Protein 5.3 g/dL (6.3-8.2)
--- NOTE | 2020-07-17 07:47 | P.PN ---
Subjective Progress Note Date: 07/17/20 Principal diagnosis: Generalized weakness Deconditioning Urinary tract infection present upon admissionchronic Schmidt catheter 85-year-old male was admitted to the hospital from the emergency department for dehydration. Patient has significant medical history of large abdominal aortic aneurysm measuring 11.6 cm with possible leakpatient was seen at [facility] decision was for no intervention due to multiple comorbidities. Patient additional significant medical history of hyperlipidemia, COPD, BPH, history of DVT/PE, hypertension, iron deficiency anemia, muscle weakness generalized, coronary artery disease, gout, chronic constipation, impaired hearing, chronic kidney failure stage III disease, anasarca, bedbound, mixed anxiety and depression, diabetes mellitus type 2, glaucoma, and osteoarthritis. Patient had extensive diagnostic workup in the emergency departmentclinical signs of dehydration. Patient a poor historian, patient able to answer questions to person only at this time. Contacted daughter regarding care planhoping for transfer to [facility] 07/17/2020 Evaluated patient this a.m., resting comfortably in bed patient alert and oriented to person, place and time.patient denies any complaints at this time. Review diagnostics labs this a.m. hemoglobin has dropped from 9.2-7.7repeat CBC at 1300, with type and screen this a.m. him a will consult gastroenterology. Objective - Vital Signs Vital signs: Vital Signs Temp 97.7 F 07/17/20 05:00 Pulse 79 07/17/20 05:00 Resp 16 07/17/20 05:00 BP 115/69 07/17/20 05:00 Pulse Ox 99 07/17/20 05:00 Intake & Output 07/16/20 07/17/20 07/17/20 18:59 06:59 18:59 Intake Total 125 2450 Output Total 200 Balance 125 2250 Weight 136.078 kg Intake: IV 75 Sodium Chloride 0.9% 1, 75 000 ml @ 75 mls/hr IV . [id number] ALEXANDR Rx#:[id number] Intake, IV Titration 50 900 Amount Sodium Chloride 0.9% 1, 900 000 ml @ 75 mls/hr IV . [id number] ALEXANDR Rx#:[id number] cefTRIAXone 1 gm In 50 Sodium Chloride 0.9% 50 ml @ 100 mls/hr IVPB Q24HR ALEXANDR Rx#:[id number] Oral 1550 Output: Urine 200 Other: Voiding Method Indwelling Catheter - Constitutional General appearance: Present: cooperative - EENT Eyes: Present: EOMI, PERRLA ENT: Present: hard of hearing Ears: bilateral: normal - Neck Carotids: bilateral: upstroke normal Thyroid: bilateral: normal size - Respiratory Respiratory: bilateral: CTA (Anterior lung mittal), diminished (Posterior lung mittal) - Cardiovascular Heart rate: 74 Rhythm: regular Heart sounds: normal: S1, S2 - Peripheral edema leg Peripheral Edema: bilateral: 2+ ankle Peripheral Edema: bilateral: 2+ foot Peripheral Edema: bilateral: 2+ - Peripheral pulses radial pulse Peripheral Pulses: bilateral: Normal - Gastrointestinal General gastrointestinal: Present: normal bowel sounds - Integumentary Integumentary: Present: pale - Neurologic Neurologic: Present: CNII-XII intact - Musculoskeletal Musculoskeletal: Present: generalized weakness - Psychiatric Psychiatric: Present: A&O x's 3 - Allied health notes Allied health notes reviewed: nursing - Labs CBC & Chem 7: 07/17/20 05:51 07/17/20 05:51 Labs: Abnormal Lab Results - Last 24 Hours (Table) 07/16/20 07/16/20 07/16/20 Range/Units 08:02 08:03 09:28 RBC 3.24 L (4.30-5.90) m/uL Hgb 9.0 L (13.0-17.5) gm/dL Hct 27.9 L (39.0-53.0) % RDW 19.4 H (11.5-15.5) % Sodium 132 L (137-145) mmol/L Chloride (98-107) mmol/L Carbon Dioxide 32 H (22-30) mmol/L Glucose 239 H (74-99) mg/dL Calcium 8.3 L (8.4-10.2) mg/dL Total Protein 5.8 L (6.3-8.2) g/dL Albumin 2.7 L (3.5-5.0) g/dL Urine Protein 1+ H (Negative) Urine Blood Large H (Negative) Ur Leukocyte Esterase Large H (Negative) Urine RBC 114 H (0-5) /hpf Urine WBC >182 H (0-5) /hpf Urine WBC Clumps Many H (None) /hpf Amorphous Sediment Rare H (None) /hpf Urine Bacteria Many H (None) /hpf Urine Mucus Rare H (None) /hpf 07/17/20 07/17/20 Range/Units 05:51 05:51 RBC 2.73 L (4.30-5.90) m/uL Hgb 7.7 L (13.0-17.5) gm/dL Hct 23.8 L (39.0-53.0) % RDW 19.6 H (11.5-15.5) % Sodium 132 L (137-145) mmol/L Chloride 97 L (98-107) mmol/L Carbon Dioxide 31 H (22-30) mmol/L Glucose 265 H (74-99) mg/dL Calcium 7.8 L (8.4-10.2) mg/dL Total Protein 5.3 L (6.3-8.2) g/dL Albumin 2.5 L (3.5-5.0) g/dL Urine Protein (Negative) Urine Blood (Negative) Ur Leukocyte Esterase (Negative) Urine RBC (0-5) /hpf Urine WBC (0-5) /hpf Urine WBC Clumps (None) /hpf Amorphous Sediment (None) /hpf Urine Bacteria (None) /hpf Urine Mucus (None) /hpf Microbiology - Last 24 Hours (Table) 07/16/20 09:28 Urine Culture - Preliminary Urine,Catheterized Assessment and Plan Assessment: Altered mental statusresolving with IV fluids and IV antibiotics Acute on chronic low hemoglobinrepeat CBC at 1300 consult with gastroenterology Dehydration Generalized weakness large abdominal aortic aneurysm measuring 11.6 cm with possible leakpatient was seen at [facility] decision was for no intervention. hyperlipidemia COPD BPH history of DVT/PE hypertension iron deficiency anemia muscle weakness generalized coronary artery disease gout chronic constipation impaired hearing chronic kidney failure stage III disease anasarca bedbound mixed anxiety and depression diabetes mellitus type 2 glaucoma osteoarthritis No code Plan: Altered mental statusmultifactorial possible dehydration with central nervous system depressantswe'll discontinue Haldol, use Ativan sparingly as needed, continue oxycodone extended release for pain and discomfort. Continue IV hydrat ion and awaiting urine culture for culture and sensitivity A drop of hemoglobin from 9.2-7.7possibly due to IV hydration will repeat CBC at 1300 and consult gastroenterology Generalized deconditioningconsult with occupational and physical therapy for recommendations to transfer to [facility] snf facility Multiple comorbidities continue home medications Consultation with social work for transfer to snf facility as [facility] rehab Monitor vital signs and diagnostics labs Continue medical management Further recommendations and treatment plan based on patient's clinical condition Time with Patient: Greater than 30
[2020-07-17] MEDS: AMIODARONE 200 MG TAB PO SCH (08:18)
[2020-07-17] MEDS: oxyCODONE ER 20 MG TAB.ER.12H PO SCH ×2 (08:19→21:20)
[2020-07-17] MEDS: carvediloL 3.125 MG TAB PO SCH ×2 (08:19→21:20)
[2020-07-17] MEDS: LACTULOSE 20 GM/30 ML CUP PO SCH ×2 (08:23→21:20)
[2020-07-17 11:43] LABS: Reticulocyte % 4.2 % (0.5-2.0)
--- NOTE | 2020-07-17 11:55 | CDI ---
Documentation Clarification Form Date: 07/17/2020 11:46:05 AM From: Liza Reina CCS, CCDS Admit Date: 07/17/2020 08:36:00 AM Patient Name: Maximino Gasca Visit Number: [id number] Discharge Date: ATTENTION: The Clinical Documentation Specialists (CDI) and [facility] Coding Staff appreciate your assistance in clarifying documentation. Please respond to the clarification below the line at the bottom and electronically sign. The CDI & [facility] Coding staff will review the response and follow-up if needed. Please note: Queries are made part of the Legal Health Record. If you have any questions, please contact the author of this message via ITS. Dr. Shar Piper: Per the 07/17 Attending Progress Note: "Urinary tract infection present upon admissionchronic Schmidt catheter." Additional clarification regarding the etiology of the UTI is requested. 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 MRSA. Clinical Indicators: Presented to the ED on 07/15 with dehydration and altered mental status. Admit for same. Admitted to Observation status 07/15, Inpatient status 07/17. UA 07/16: Yellow, Turbid, 1+ Protein, Large Blood, Negative Nitrite, Large Esterase, RBC 114, WBC >182 Urine Culture 07/16 (preliminary): negative Treatment 07/15: IV fluid 1,000 mls @ 130 mls/hr q7H, IV fluid 500 mls @ 999 mls/hr q31M 07/16: po Haldol, po Ativan, IV Rocephin. Please clarify the etiology of the UTI, if known: [ ] UTI related to Schmidt catheter (Template Last Revised: May 2020) MTDD
--- NOTE | 2020-07-17 12:02 | CDI ---
Documentation Clarification Form Date: 07/17/2020 11:56:18 AM From: Liza Reina CCS, CCDS Admit Date: 07/17/2020 08:36:00 AM Patient Name: Maximino Gasca Visit Number: [id number] Discharge Date: ATTENTION: The Clinical Documentation Specialists (CDI) and [facility] Coding Staff appreciate your assistance in clarifying documentation. Please respond to the clarification below the line at the bottom and electronically sign. The CDI & [facility] Coding staff will review the response and follow-up if needed. Please note: Queries are made part of the Legal Health Record. If you have any questions, please contact the author of this message via ITS. Dr. Shar Piper: Altered mental status is documented in the ED Note on 07/15. Per the 07/17 Attending Progress Note: "Urinary tract infection present upon admissionchronic Schmidt catheter." Haldol discontinued, replaced with Ativan. Additional clarification is requested regarding the cause of the patient's altered mental status. History/Risk Factors per the 07/16 H/P Past Medical History: COPD, Diabetes Mellitus, DVT, Hyperlipidemia, Hypertension, DVT/PE on fdc anticoagulation, BPH, GERD, Iron deficiency anemia, Generalized Muscle Weakness, CAD, Gout, Chronic constipation, Impaired hearing, CKD III, Generalized edema, Difficulty walking, Depression, Seasonal Allergic Rhinitis, Glaucoma, OA, Known large AAA. MRSA. Clinical Indicators: Presented to the ED on 07/15 with dehydration and altered mental status. Admit for same. Admitted to Observation status 07/15, Inpatient status 07/17. 07/15 VS: T 98.7, P 75, R 16, BP 131/68, PO 98 4Lnc 07/15 LAB: Hgb 9.2, PT 13.1, INR 1.3, Na 131, Cl 94, CO2 33, Cr 0.60, Glucose 277, Total Protein 5.8, Albumin 2.8, Amylase <30, Lipase 21. UA 07/16: Yellow, Turbid, 1+ Protein, Large Blood, Negative Nitrite, Large Esterase, RBC 114, WBC >182 Urine Culture 07/16 (preliminary): negative Treatment 07/15: IV fluid 1,000 mls @ 130 mls/hr q7H, IV fluid 500 mls @ 999 mls/hr q31M 07/16: po Sangeetal, po Atyunior, IV Boyepkristy. Please clarify if the following is present: [ ] Metabolic Encephalopathy (Template Last Revised: May 2020) MTDD
--- NOTE | 2020-07-17 13:14 | P.CONS ---
History of Present Illness - Reason for Consult Consult date: 07/17/20 Anemia Requesting physician: Shar Piper - Chief Complaint Dehydration - History of Present Illness 85-year-old male with multiple medical comorbidities including PE/DVT, COPD, BPH, hypertension, coronary artery disease, chronic constipation, hearing impairment, chronic kidney disease, diabetes mellitus, glaucoma, osteoarthritis, hyperlipidemia, and a known history of abdominal aortic aneurysm who presented to the hospital due to dehydration. Currently the patient is being treated for generalized weakness and deconditioning as well as a urinary tract infection pr esent on admission to the hospital. During the patient's hospitalization he did have a fall in his hemoglobin currently at 7.7 from 9.2 on admission. He does have a known history of chronic anemia. Overall the patient is a poor historian secondary to underlying memory impairment. He denies any signs or symptoms of GI bleeding. He believes his last colonoscopy was approximately 10 years ago. No nausea vomiting reported. No abdominal pain reported at this time. Previously the patient had EGD on 07/03/19 with findings of a nonbleeding Antonieta- Proctor tear and retained food in the gastric cardia. Review of Systems REVIEW OF SYSTEMS: CONSTITUTIONAL: Denies any fevers, chills, weight change or fatigue. CARDIOVASCULAR: Denies any chest pain, palpitations high or low blood pressures RESPIRATORY: Denies any shortness of breath, hemoptysis or cough. GENITOURINARY: No dysuria or hematuria, patient does have a chronic indwelling Schmidt catheter is being treated for UTI. MUSCULOSKELETAL: No weakness reported. SKIN: Denies any new rashes or lesions, jaundice or pallor. PSYCHIATRIC: Denies any depression or anxiety. NEUROLOGY: Denies headache, denies any new focal deficits, he does have memory impairment at baseline. EARS/NOSE/THROAT: No recent hearing change, congestion, nasal discharge or sore throat. EYES: No pain in eyes, discharge or change in vision. GASTROINTESTINAL: As per HPI. Past Medical History Past Medical History: Coronary Artery Disease (CAD), COPD, Diabetes Mellitus, Deep Vein Thrombosis (DVT), GERD/Reflux, Hearing Disorder / Deafness, Hyperlipidemia, Hypertension, Osteoarthritis (OA), Pulmonary Embolus (PE) Additional Past Medical History / Comment(s): Previous history of DVT/PE and patient has a maintained on long-term and to coagulation with warfarin, BPH, iron deficiency anemia, generalized weakness,, gout, chronic constipation, impaired hearing, chronic kidney failure stage III disease, generalized edema, depression, seasonal allergic rhinitis, glaucoma. Patient also is known to have abdominal aortic aneurysm- 11.6 cm. History of Any Multi-Drug Resistant Organisms: MRSA Year Discovered:: 03/27/18 MDRO Source:: SPUTUM MRSA Past Surgical History: Appendectomy, Hernia Repair, Tonsillectomy Additional Past Surgical History / Comment(s): cataract, hydrocele, :9 stents in legs/ 2 aortic stents", rt ext iliac stent 05/29/16 at [place] Past Anesthesia/Blood Transfusion Reactions: No Reported Reaction Smoking Status: Never smoker - Past Family History Mother Family Medical History: Cancer Additional Family Medical History / Comment(s): open heart surgery, CA ovarian and liver, lyme disease Medications and Allergies Home Medications Medication Instructions Recorded Confirmed Type Amiodarone HCl [Pacerone] 200 mg PO DAILY@0900 07/15/20 07/15/20 History Carvedilol [Coreg] 3.125 mg PO BID@0900,209907/15/20 07/15/20 History Haloperidol Oral Soln [Haldol Oral 1 mg PO Q6H PRN 07/15/20 07/15/20 History Soln] LORazepam [Ativan] 0.5 - 1 mg PO Q4H PRN 07/15/20 07/15/20 History Lactulose [Constulose] 10 gm PO BID@0900,2100 07/15/20 07/15/20 History Melatonin 3 mg PO HS@209907/15/20 07/15/20 History Sennosides/Docusate Sodium [Senna 1 cap PO TID@0600,1400,2200 07/15/20 07/15/20 History Plus 8.6-50 mg Softgel] oxyCODONE ER [OxyCONTIN] 20 mg PO BID@0900,2100 07/15/20 07/15/20 History oxyCODONE HCL [OxyIR] 5 mg PO Q6H PRN 07/15/20 07/15/20 History Allergies Allergy/AdvReac Type Severity Reaction Status Date / Time No Known Allergies Allergy Verified 07/15/20 22:30 Physical Exam Vitals: Vital Signs Temp Pulse Pulse Resp BP BP Pulse Ox 07/17/20 08:00 80 16 07/17/20 05:00 97.7 F 79 16 115/69 99 07/16/20 20:40 97.6 F 88 16 119/71 100 07/16/20 16:08 98.5 F 87 17 116/63 98 07/16/20 12:01 98.3 F 07/16/20 11:03 99.6 F 84 20 100/60 95 Intake and Output 07/16/20 07/17/20 07/17/20 22:59 06:59 14:59 Intake Total 125 2450 Output Total 200 Balance 125 2250 Intake: IV 75 Sodium Chloride 0.9% 1, 75 000 ml @ 75 mls/hr IV . [id number] [facility] Rx#:[id number] Intake, IV Titration 50 900 Amount Sodium Chloride 0.9% 1, 900 000 ml @ 75 mls/hr IV . [id number] [facility] Rx#:[id number] cefTRIAXone 1 gm In 50 Sodium Chloride 0.9% 50 ml @ 100 mls/hr IVPB Q24HR [facility] Rx#:[id number] Oral 1550 Output: Urine 200 Other: Voiding Method Indwelling Catheter Indwelling Catheter Weight 136.078 kg On physical examination, patient appears comfortable in no apparent distress. HEAD: Normocephalic, atraumatic. EYES: No scleral icterus. No conjunctival injection. MOUTH: No lesions, tongue midline. NECK: Trachea midline, no gross abnormalities. CHEST: Decreased air entry in all mittal. HEART: S1-S2 appreciated. ABDOMEN: Soft, obese and nontender to palpation. Bowel sounds are positive. No organomegaly. No guarding or rigidity. EXTREMITIES: Bilateral pedal edema. SKIN: No rashes, no jaundice. NEUROLOGIC: Alert and oriented to person. Results CBC & Chem 7: 07/17/20 05:51 07/17/20 05:51 Labs: Abnormal Lab Results - Last 24 Hours (Table) 07/16/20 07/17/20 07/17/20 Range/Units 09:28 05:51 05:51 RBC 2.73 L (4.30-5.90) m/uL Hgb 7.7 L (13.0-17.5) gm/dL Hct 23.8 L (39.0-53.0) % RDW 19.6 H (11.5-15.5) % Sodium 132 L (137-145) mmol/L Chloride 97 L (98-107) mmol/L Carbon Dioxide 31 H (22-30) mmol/L Glucose 265 H (74-99) mg/dL Calcium 7.8 L (8.4-10.2) mg/dL Total Protein 5.3 L (6.3-8.2) g/dL Albumin 2.5 L (3.5-5.0) g/dL Urine Protein 1+ H (Negative) Urine Blood Large H (Negative) Ur Leukocyte Esterase Large H (Negative) Urine RBC 114 H (0-5) /hpf Urine WBC >182 H (0-5) /hpf Urine WBC Clumps Many H (None) /hpf Amorphous Sediment Rare H (None) /hpf Urine Bacteria Many H (None) /hpf Urine Mucus Rare H (None) /hpf Microbiology - Last 24 Hours (Table) 07/16/20 09:28 Urine Culture - Preliminary Urine,Catheterized Abdominal x-ray: report reviewed (Nonspecific bowel gas pattern on abdominal x- ray) Assessment and Plan (1) Normocytic anemia Narrative/Plan: 85-year-old male with multiple medical comorbidities including chronic anemia presenting for dehydration and being treated for urinary tract infection. Patient noted to have a normocytic normochromic anemia with an acute fall in his hemoglobin after presentation currently stable at 7.7. No signs or symptoms of GI bleeding. No abdominal pain reported. Last EGD was performed in 07/16 with findings of a nonbleeding Antonieta-Proctor tear and retained food in the gastric stomach. He believes his last colonoscopy was 10 years ago. The patient does have a abdominal aortic aneurysm which has been evaluated at an outside hospital and the patient is not felt to be a surgical candidate. Anemia is likely multifactorial secondary to chronic disease, cannot rule out a component of GI blood loss, however patient is denying any signs and symptoms as noted above the plan will be for further laboratory evaluation as well as stool studies. Current Visit: Yes Status: Acute Code(s): D64.9 - ANEMIA, UNSPECIFIED SNOMED Code(s): 904645344 (2) AAA (abdominal aortic aneurysm) Current Visit: Yes Status: Acute Code(s): I71.4 - ABDOMINAL AORTIC ANEURYSM, WITHOUT RUPTURE SNOMED Code(s): 122884995 (3) UTI (urinary tract infection) Current Visit: No Status: Acute Code(s): N39.0 - URINARY TRACT INFECTION, SITE NOT SPECIFIED SNOMED Code(s): 53452907 Plan: Supportive care Okay for diet Continue monitor hemoglobin and hematocrit and transfuse as needed Anemia laboratory evaluation has been ordered and is pending Stool for occult blood ordered Continue to monitor stool output Continue current medical management No plans for endoscopic evaluation at this time, if further evaluation is warranted with endoscopy patient would need clearance given the enlarging abdominal aortic aneurysm noted on imaging, would likely be high risk for complications from the procedure Further recommendations pending findings of laboratory and stool analysis Thank you for allowing us to participate in the care of the patient
--- NOTE | 2020-07-17 13:46 | P.PN ---
Progress Note - Text Progress Note Date: 07/17/20 physician clarification UTI r/t Schmidt catheter present on admission
--- NOTE | 2020-07-17 13:48 | P.CON ---
Consult Note - . Consult date: 07/17/20 Assessment/Plan:: physician clarification Altered mental status- metabolic encephalopathy
[2020-07-17 14:01] LABS: Anisocytosis Slight; Basophils # (A) 0.1 k/uL (0-0.2); Basophils % (A) 1 %; Eosinophils # (A) 0.3 k/uL (0-0.7); Eosinophils % (A) 4 %; HCT 23.2 % (39.0-53.0); HGB 7.6 gm/dL (13.0-17.5); Hypochromasia Marked; Lymphocytes # (A) 0.9 k/uL (1.0-4.8); Lymphocytes % (A) 11 %; MCH 28.6 pg (25.0-35.0); MCHC 32.6 g/dL (31.0-37.0); MCV 87.6 fL (80.0-100.0); Mean Platelet Volume 7.2; Monocytes # (A) 0.5 k/uL (0-1.0); Monocytes % (A) 6 %; Neutrophils # (A) 6.8 k/uL (1.3-7.7); Neutrophils % (A) 78 %; Platelet Count 267 k/uL (150-450); Poikilocytosis Moderate; RBC 2.65 m/uL (4.30-5.90); RDW 19.5 % (11.5-15.5); WBC 8.7 k/uL (3.8-10.6)
[2020-07-17] MEDS: MELATONIN 3 MG TABLET PO SCH (21:20)
[2020-07-18] MEDS: SENNOSIDES-DOCUSATE SODIUM 1 EACH TAB PO SCH ×2 (05:23→15:41)
[2020-07-18] MEDS: SODIUM CHLORIDE 0.9% 1,000 ML IV SCH (05:23)
[2020-07-18 05:32] LABS: Anisocytosis Slight; Basophils # (A) 0.1 k/uL (0-0.2); Basophils % (A) 1 %; Eosinophils # (A) 0.3 k/uL (0-0.7); Eosinophils % (A) 4 %; HCT 22.8 % (39.0-53.0); HGB 7.1 gm/dL (13.0-17.5); Hypochromasia Marked; Lymphocytes # (A) 1.2 k/uL (1.0-4.8); Lymphocytes % (A) 14 %; MCH 27.4 pg (25.0-35.0); MCV 88.2 fL (80.0-100.0); Mean Platelet Volume 7.3; Monocytes # (A) 0.5 k/uL (0-1.0); Monocytes % (A) 7 %; Neutrophils # (A) 5.8 k/uL (1.3-7.7); Neutrophils % (A) 73 %; Platelet Count 258 k/uL (150-450); Poikilocytosis Moderate; RBC 2.59 m/uL (4.30-5.90); RDW 19.6 % (11.5-15.5)
[2020-07-18 05:37] LABS: ALT 8 U/L (4-49); AST 18 U/L (17-59); African American GFR (CKD) >90 (>60 ml/min/1.73 sqM); Albumin 2.6 g/dL (3.5-5.0); Alkaline Phosphatase 67 U/L (38-126); Anion Gap 5 mmol/L; Blood Urea Nitrogen 18 mg/dL (9-20); Carbon Dioxide 27 mmol/L (22-30); Chloride 97 mmol/L (98-107); Globulin 2.7 g/dL; Glucose 264 mg/dL (74-99); Magnesium 1.8 mg/dL (1.6-2.3); Non-African American GFR(CKD) 83 (>60 ml/min/1.73 sqM); Potassium 4.1 mmol/L (3.5-5.1); Sodium 129 mmol/L (137-145); Total Bilirubin 0.7 mg/dL (0.2-1.3); Total Protein 5.3 g/dL (6.3-8.2)
[2020-07-18 05:53] LABS: Folate, Serum 7.5 ng/mL
[2020-07-18 06:23] LABS: % Iron Saturation 18.27 (15.00-50.00); Ferritin 358.2 ng/mL (22.0-322.0)
[2020-07-18] MEDS: LACTULOSE 20 GM/30 ML CUP PO SCH (07:56)
[2020-07-18] MEDS: carvediloL 3.125 MG TAB PO SCH (07:57)
[2020-07-18] MEDS: AMIODARONE 200 MG TAB PO SCH (07:57)
[2020-07-18] MEDS: oxyCODONE ER 20 MG TAB.ER.12H PO SCH (07:58)
--- NOTE | 2020-07-18 09:52 | XR ---
EXAMINATION TYPE: XR chest 1V portable DATE OF EXAM: 07/18/2020 COMPARISON: Chest x-ray dated 07/16/2020 HISTORY: Shortness of breath TECHNIQUE: Single frontal view of the chest is obtained. FINDINGS: The patient is rotated. Heart is enlarged, size may be accentuated by technique. Patchy ba silar density is noted. No evident pneumothorax. IMPRESSION: Basilar atelectasis, correlate to exclude pneumonia.
[2020-07-18] MEDS ORDERED: FUROSEMIDE 10 MG/ML 2 ML VIAL IV PRN (10:32)
[2020-07-18 11:24] LABS: INR 1.5 (<1.2); Partial Thromboplastin Time 26.7 sec (22.0-30.0); Prothrombin Time 15.2 sec (9.0-12.0)
[2020-07-18 11:27] LABS: Anisocytosis Slight; HCT 20.4 % (39.0-53.0); Hypochromasia Marked; MCHC 30.5 g/dL (31.0-37.0); MCV 88.5 fL (80.0-100.0); Mean Platelet Volume 7.1; Platelet Count 279 k/uL (150-450); Poikilocytosis Moderate; RBC 2.31 m/uL (4.30-5.90); RDW 19.7 % (11.5-15.5); WBC 10.1 k/uL (3.8-10.6)
[2020-07-18 11:33] LABS: HGB 6.2 gm/dL (13.0-17.5)
[2020-07-18 11:55] LABS: Glucose,Whole Blood 357 mg/dL (75-99)
--- NOTE | 2020-07-18 12:08 | P.CONS ---
History of Present Illness - Reason for Consult Consult date: 07/18/20 Wound care - History of Present Illness This is an 85-year-old patient who is a poor historian who is being seen by the wound care center for multiple pressure ulcers. Patient has a pressure ulcer to the left heel that is a stage I, pressure ulcer to the right heel stage I that is 5 x 5 no open areas noted we will treat for prevention. Pressure ulcer to the left buttocks measuring approximate 4 x 4 x 0.1 cm, granulation seen through the wound bed with significant amount of slough. No tunneling or undermining noted, wound edges are attached to the wound base. Patient's past medical history significant for diabetes, chronic kidney disease stage III, CAD, gout, COPD, BPH, hypertension, hyperlipidemia. Review Of Systems: Constitutional: No fever, no chills, no night sweats. No weight change. No weakness, fatigue or lethargy. No daytime sleepiness. Integumentary:reports wounds, no lesions. No rash or pruritus. No unusual bruising. No change in hair or nails. Physical exam: General Appearance: Alert, cooperative, no distress, appears stated age. Skin: See HPI all other Skin color, texture, tugor normal, no rashes or lesions. Neurologic: Alert oriented x3 Assessment: 1. Pressure ulcer stage II left buttocks 2. Pressure ulcer stage I left calcaneus 3. Pressure ulcer right calcaneus stage I 4. Diabetes with skin ulcer Plan: 1. Apply honey alginate, saline moistened gauze, sacrum border foam. Change Wednesday. Turn patient every 2 hours. Utilize a waffle cushion when sitting. 2. Right calcaneus apply zinc barrier cream foam gauze wrap with rolled gauze change Wednesday. Utilize heel protectors. 3. Left calcaneus utilize heel protector Thank you for the consultation any questions please contact the wound care center DNP note has been reviewed and discussed with Dr. Martin and the impression and plan of care has been directed as dictated. Past Medical History Past Medical History: Coronary Artery Disease (CAD), COPD, Diabetes Mellitus, Deep Vein Thrombosis (DVT), GERD/Reflux, Hearing Disorder / Deafness, Hyperlipidemia, Hypertension, Osteoarthritis (OA), Pulmonary Embolus (PE) Additional Past Medical History / Comment(s): Previous history of DVT/PE and patient has a maintained on long-term and to coagulation with warfarin, BPH, iron deficiency anemia, generalized weakness,, gout, chronic constipation, impaired hearing, chronic kidney failure stage III disease, generalized edema, depression, seasonal allergic rhinitis, glaucoma. Patient also is known to have abdominal aortic aneurysm- 11.6 cm. History of Any Multi-Drug Resistant Organisms: MRSA Year Discovered:: 03/27/18 MDRO Source:: SPUTUM MRSA Past Surgical History: Appendectomy, Hernia Repair, Tonsillectomy Additional Past Surgical History / Comment(s): cataract, hydrocele, :9 stents in legs/ 2 aortic stents", rt ext iliac stent 05/29/16 at [place] Past Anesthesia/Blood Transfusion Reactions: No Reported Reaction Smoking Status: Never smoker - Past Family History Mother Family Medical History: Cancer Additional Family Medical History / Comment(s): open heart surgery, CA ovarian and liver, lyme disease Medications and Allergies Home Medications Medication Instructions Recorded Confirmed Type Amiodarone HCl [Pacerone] 200 mg PO DAILY@0900 07/15/20 07/15/20 History Carvedilol [Coreg] 3.125 mg PO BID@0900,209907/15/20 07/15/20 History Haloperidol Oral Soln [Haldol Oral 1 mg PO Q6H PRN 07/15/20 07/15/20 History Soln] LORazepam [Ativan] 0.5 - 1 mg PO Q4H PRN 07/15/20 07/15/20 History Lactulose [Constulose] 10 gm PO BID@0900,209907/15/20 07/15/20 History Melatonin 3 mg PO HS@209907/15/20 07/15/20 History Sennosides/Docusate Sodium [Senna 1 cap PO TID@0600,1400,2200 07/15/20 07/15/20 History Plus 8.6-50 mg Softgel] oxyCODONE ER [OxyCONTIN] 20 mg PO BID@0900,209907/15/20 07/15/20 History oxyCODONE HCL [OxyIR] 5 mg PO Q6H PRN 07/15/20 07/15/20 History Allergies Allergy/AdvReac Type Severity Reaction Status Date / Time No Known Allergies Allergy Verified 07/15/20 22:30 Physical Exam Vitals: Vital Signs Temp Pulse Pulse Resp BP BP Pulse Ox 07/18/20 11:22 97.9 F 89 16 96/60 100 07/18/20 08:00 76 28 H 07/18/20 07:45 97.9 F 80 16 119/66 98 07/18/20 05:00 98.3 F 74 16 121/79 98 07/17/20 21:00 97.8 F 82 16 127/57 99 07/17/20 19:55 82 16 07/17/20 12:14 98.8 F 72 18 108/61 98 Intake and Output 07/17/20 07/18/20 07/18/20 22:59 06:59 14:59 Intake Total 1570 1290 240 Output Total 600 Balance 1570 690 240 Intake: Intake, IV Titration 950 700 Amount Sodium Chloride 0.9% 1, 900 700 000 ml @ 75 mls/hr IV . [id number] [facility] Rx#:[id number] cefTRIAXone 1 gm In 50 Sodium Chloride 0.9% 50 ml @ 100 mls/hr IVPB Q24HR [facility] Rx#:[id number] Oral 620 590 240 Blood Product 0 Rc As-1 Unit 0 [id number] Output: Urine 600 Other: Voiding Method Indwelling Catheter Indwelling Catheter Results CBC & Chem 7: 07/18/20 10:20 07/18/20 04:41 Labs: Abnormal Lab Results - Last 24 Hours (Table) 07/17/20 07/17/20 07/17/20 Range/Units 05:51 07:56 13:21 RBC 2.65 L (4.30-5.90) m/uL Hgb 7.6 L (13.0-17.5) gm/dL Hct 23.2 L (39.0-53.0) % MCHC (31.0-37.0) g/dL RDW 19.5 H (11.5-15.5) % Lymphocytes # 0.9 L (1.0-4.8) k/uL PT (9.0-12.0) sec INR (<1.2) Sodium (137-145) mmol/L Chloride (98-107) mmol/L Glucose (74-99) mg/dL POC Glucose (mg/dL) (75-99) mg/dL Calcium (8.4-10.2) mg/dL Iron 36 L (65-175) ug/dL TIBC 197 L (228-460) ug/dL Ferritin 358.2 H (22.0-322.0) ng/mL Total Protein (6.3-8.2) g/dL Albumin (3.5-5.0) g/dL Procalcitonin (0.02-0.09) ng/mL Crossmatch See Detail 07/17/20 07/18/20 07/18/20 Range/Units 13:21 04:41 04:41 RBC 2.59 L (4.30-5.90) m/uL Hgb 7.1 L (13.0-17.5) gm/dL Hct 22.8 L (39.0-53.0) % MCHC (31.0-37.0) g/dL RDW 19.6 H (11.5-15.5) % Lymphocytes # (1.0-4.8) k/uL PT (9.0-12.0) sec INR (<1.2) Sodium 129 L (137-145) mmol/L Chloride 97 L (98-107) mmol/L Glucose 264 H (74-99) mg/dL POC Glucose (mg/dL) (75-99) mg/dL Calcium 8.0 L (8.4-10.2) mg/dL Iron (65-175) ug/dL TIBC (228-460) ug/dL Ferritin (22.0-322.0) ng/mL Total Protein 5.3 L (6.3-8.2) g/dL Albumin 2.6 L (3.5-5.0) g/dL Procalcitonin 0.15 H (0.02-0.09) ng/mL Crossmatch 07/18/20 07/18/20 07/18/20 Range/Units 10:20 10:20 11:35 RBC 2.31 L (4.30-5.90) m/uL Hgb 6.2 L* (13.0-17.5) gm/dL Hct 20.4 L (39.0-53.0) % MCHC 30.5 L (31.0-37.0) g/dL RDW 19.7 H (11.5-15.5) % Lymphocytes # (1.0-4.8) k/uL PT 15.2 H (9.0-12.0) sec INR 1.5 H (<1.2) Sodium (137-145) mmol/L Chloride (98-107) mmol/L Glucose (74-99) mg/dL POC Glucose (mg/dL) 357 H (75-99) mg/dL Calcium (8.4-10.2) mg/dL Iron (65-175) ug/dL TIBC (228-460) ug/dL Ferritin (22.0-322.0) ng/mL Total Protein (6.3-8.2) g/dL Albumin (3.5-5.0) g/dL Procalcitonin (0.02-0.09) ng/mL Crossmatch Microbiology - Last 24 Hours (Table) 07/16/20 09:28 Urine Culture - Preliminary Urine,Catheterized Gram Neg Bacilli Assessment and Plan (1) Stage II pressure ulcer of left buttock Current Visit: Yes Status: Acute Code(s): L89.322 - PRESSURE ULCER OF LEFT BUTTOCK, STAGE 2 SNOMED Code(s): 73980522919022992 (2) Stage I pressure ulcer of right heel Current Visit: Yes Status: Acute Code(s): L89.611 - PRESSURE ULCER OF RIGHT HEEL, STAGE 1 SNOMED Code(s): 860570994 (3) Stage I pressure ulcer of left heel Current Visit: Yes Status: Acute Code(s): L89.621 - PRESSURE ULCER OF LEFT HEEL, STAGE 1 SNOMED Code(s): 245436324 (4) Diabetes mellitus with skin ulcer Current Visit: No Status: Acute Code(s): E11.622 - TYPE 2 DIABETES MELLITUS WITH OTHER SKIN ULCER; L98.499 - NON-PRESSURE CHRONIC ULCER OF SKIN OF SITES W UNSP SEVERITY SNOMED Code(s): 76218662
--- NOTE | 2020-07-18 12:18 | P.EN ---
I responded to a rapid response team called by nursing staff was concerned about altered mental status. Nursing staff reported that patient was getting a blood transfusion when they noticed that his eyes rolled back and he tried to grab on the blood pressure cuff and then went unresponsive. Upon arrival to the room, patient appeared obtunded. He had a week pulse. Blood pressure checked manually was 73/42 and O2 saturation 87% on 6 L of oxygen via nasal cannula. Patient is DO NOT RESUSCITATE/DO NOT INTUBATE according to nursing staff. I reviewed his chart and apparently patient was admitted to the hospital with metabolic encephalopathy with possible dehydration. I noted that his hemoglobin has been trending down since admission. Hemoglobin this morning was 6.2 and patient was in the process to receive 1 unit of blood. He also has a known large approximately 14 x 14 cm abdominal aneurysm that was impending rupture on computed tomography scan done on June 21. Per report, patient was transferred to [facility] and was not a surgical candidate. I did call the attending physician and updated his mid-level provider about the patient's condition. I also called his daughter who is the spokesperson for the family and I updated her about his condition. We discussed comfort care versus obtaining further imaging and she was leaning more towards comfort care. She would like to come see her father with her brother. I instructed nursing staff to give the patient 1 L bolus of normal saline and continue with the units of blood transfusion that was held earlier. Nursing staff will follow-up with the attending physician for further instructions.
--- NOTE | 2020-07-18 13:19 | US ---
EXAMINATION TYPE: US duplex aorta DATE OF EXAM: 07/18/2020 COMPARISON: NONE CLINICAL HISTORY: AAA. EXAM MEASUREMENTS: Patient has large AAA with aortic stent graft. He became unresponsive and Dr. Piper ordered an ultras ound to rule out rupture. Patient because somewhat responsive before technologist arrived. Patient 300lbs with interstitial edema, unable to visualize AAA or graft by ultrasound. IMPRESSION: Nondiagnostic exam. Consider CT scan for better evaluation.
[2020-07-18 14:24] VITALS: BP 52/28
--- NOTE | 2020-07-18 15:37 | P.PN ---
Subjective Progress Note Date: 07/18/20 Principal diagnosis: Anemia This morning and 18 was called and the patient for altered mental status and unresponsiveness while getting blood. Patient is a DO NOT RESUSCITATE DO NOT INTUBATE. Today's hemoglobin was 6.2 and 1 unit of PRBC transfusion was ordered. No reported signs of bleeding. Patient is unresponsive at this time with family at the bedside currently discussing to possibly make patient comfort care. Objective - Vital Signs Vital signs: Vital Signs Temp 98 F 07/18/20 14:29 Pulse 80 07/18/20 14:29 Resp 24 07/18/20 14:29 BP 52/28 07/18/20 12:43 Pulse Ox 90 L 07/18/20 14:29 Intake & Output 07/17/20 07/18/20 07/18/20 18:59 06:59 18:59 Intake Total 2050 1290 550 Output Total 600 100 Balance 2050 690 450 Intake: Intake, IV Titration 950 700 Amount Sodium Chloride 0.9% 1, 900 700 000 ml @ 75 mls/hr IV . [id number] [facility] Rx#:[id number] cefTRIAXone 1 gm In 50 Sodium Chloride 0.9% 50 ml @ 100 mls/hr IVPB Q24HR [facility] Rx#:[id number] Oral 1100 590 240 Blood Product 310 Rc As-1 Unit 0 [id number] Rc As-1 Unit 310 [id number] Output: Urine 600 100 Uretheral (Schmidt) 100 Other: Voiding Method Indwelling Catheter Indwelling Catheter Indwelling Catheter - Exam General appearance: The patient is non-responsive HET: Head is normocephalic and atraumatic. Conjunctiva pink. Sclera anicteric. Neck: Supple without lymphadenopathy. Abdomen: Soft, nontender, nondistended with bowel sounds. No guarding or rigidity. Extremities: Normal skin color and turgor. No pedal edema Skin: No rashes, no jaundice Neurological: Nonresponsive - Labs CBC & Chem 7: 07/18/20 10:20 07/18/20 04:41 Labs: Abnormal Lab Results - Last 24 Hours (Table) 07/17/20 07/17/20 07/17/20 Range/Units 05:51 07:56 13:21 RBC (4.30-5.90) m/uL Hgb (13.0-17.5) gm/dL Hct (39.0-53.0) % MCHC (31.0-37.0) g/dL RDW (11.5-15.5) % PT (9.0-12.0) sec INR (<1.2) Sodium (137-145) mmol/L Chloride (98-107) mmol/L Glucose (74-99) mg/dL POC Glucose (mg/dL) (75-99) mg/dL Calcium (8.4-10.2) mg/dL Iron 36 L (65-175) ug/dL TIBC 197 L (228-460) ug/dL Ferritin 358.2 H (22.0-322.0) ng/mL Total Protein (6.3-8.2) g/dL Albumin (3.5-5.0) g/dL Procalcitonin 0.15 H (0.02-0.09) ng/mL Crossmatch See Detail 07/18/20 07/18/20 07/18/20 Range/Units 04:41 04:41 10:20 RBC 2.59 L (4.30-5.90) m/uL Hgb 7.1 L (13.0-17.5) gm/dL Hct 22.8 L (39.0-53.0) % MCHC (31.0-37.0) g/dL RDW 19.6 H (11.5-15.5) % PT 15.2 H (9.0-12.0) sec INR 1.5 H (<1.2) Sodium 129 L (137-145) mmol/L Chloride 97 L (98-107) mmol/L Glucose 264 H (74-99) mg/dL POC Glucose (mg/dL) (75-99) mg/dL Calcium 8.0 L (8.4-10.2) mg/dL Iron (65-175) ug/dL TIBC (228-460) ug/dL Ferritin (22.0-322.0) ng/mL Total Protein 5.3 L (6.3-8.2) g/dL Albumin 2.6 L (3.5-5.0) g/dL Procalcitonin (0.02-0.09) ng/mL Crossmatch 07/18/20 07/18/20 Range/Units 10:20 11:35 RBC 2.31 L (4.30-5.90) m/uL Hgb 6.2 L* (13.0-17.5) gm/dL Hct 20.4 L (39.0-53.0) % MCHC 30.5 L (31.0-37.0) g/dL RDW 19.7 H (11.5-15.5) % PT (9.0-12.0) sec INR (<1.2) Sodium (137-145) mmol/L Chloride (98-107) mmol/L Glucose (74-99) mg/dL POC Glucose (mg/dL) 357 H (75-99) mg/dL Calcium (8.4-10.2) mg/dL Iron (65-175) ug/dL TIBC (228-460) ug/dL Ferritin (22.0-322.0) ng/mL Total Protein (6.3-8.2) g/dL Albumin (3.5-5.0) g/dL Procalcitonin (0.02-0.09) ng/mL Crossmatch Microbiology - Last 24 Hours (Table) 07/16/20 09:28 Urine Culture - Preliminary Urine,Catheterized Gram Neg Bacilli Assessment and Plan (1) Normocytic anemia Narrative/Plan: This is an 85-year-old male with multiple medical comorbidities including chronic anemia presenting for dehydration and being treated for urinary tract infection. The patient was noted to have normocytic normochromic anemia with an acute fall in his hemoglobin after presentation currently stable at 7.7. No signs or symptoms of GI bleeding. No abdominal pain reported. Last EGD was pe rformed on 07/16 with findings of nonbleeding Antonieta-Proctor tear and retained food in the gastric stomach. He believes last colonoscopy was 10 years ago. The patient does have an abdominal aortic aneurysm which has been evaluated in an outside hospital and the patient is not felt to be a surgical candidate. Anemia is likely multifactorial secondary to chronic disease, cannot rule out component of GI blood loss, however patient is denying any signs or symptoms as noted above. The plan will be for further laboratory evaluation as well as stool studies. Today patient had a drop in his hemoglobin to 6.2, status post 1 unit of PRBC transfusion Current Visit: Yes Status: Acute Code(s): D64.9 - ANEMIA, UNSPECIFIED SNOMED Code(s): 815096620 (2) AAA (abdominal aortic aneurysm) Current Visit: Yes Status: Acute Code(s): I71.4 - ABDOMINAL AORTIC ANEURYSM, WITHOUT RUPTURE SNOMED Code(s): 573930808 (3) UTI (urinary tract infection) Current Visit: No Status: Acute Code(s): N39.0 - URINARY TRACT INFECTION, SITE NOT SPECIFIED SNOMED Code(s): 76577048 Plan: Supportive care Okay for diet Anemia workup ordered Stool for occult blood ordered Continue current medical management No plans for endoscopic evaluation at this time, we'll reevaluate pending patient's clinical outcome Patient's family at the bedside currently deciding to possibly make the patient comfort care only You for this consultation we will continue to follow Dr. Blackburn I agree with the dictator's note, documented as a scribe by Rachael Mitchell.
--- NOTE | 2020-07-18 15:49 | P.PN ---
Subjective Progress Note Date: 07/18/20 (0800) Principal diagnosis: Generalized weakness Deconditioning Urinary tract infection present upon admissionchronic Schmidt catheter Chest pain shortness of breath 85-year-old male was admitted to the hospital from the emergency department for dehydration. Patient has significant medical history of large abdominal aortic aneurysm measuring 11.6 cm with possible leakpatient was seen at [facility] decision was for no intervention due to multiple comorbidities. Patien t additional significant medical history of hyperlipidemia, COPD, BPH, history of DVT/PE, hypertension, iron deficiency anemia, muscle weakness generalized, coronary artery disease, gout, chronic constipation, impaired hearing, chronic kidney failure stage III disease, anasarca, bedbound, mixed anxiety and depression, diabetes mellitus type 2, glaucoma, and osteoarthritis. Patient had extensive diagnostic workup in the emergency departmentclinical signs of dehydration. Patient a poor historian, patient able to answer questions to person only at this time. Contacted daughter regarding care [facility]hop[facility] 07[facility]17[facility]2020 Evaluated patient this a.m., resting comfortably in bed patient alert and oriented to person, place and time.patient denies any complaints at this time. Review diagnostics labs this a.m. hemoglobin has dropped from 9.2-7.7repeat CBC at 1300, with type and screen this a.m. him a will consult gastroenterology. July 18, 2020 evaluated patient this a.m., patient tachypemic And laboredrespirations, pale and diaphoretic. Ordered stat chest x-ray, ordered one unit of packed red blood cells to be transfused. Ordered repeat CBC. Patient with guarded prognosis patient only the answer to person in place frequently drowsy. Patient guarded prognosis Objective - Vital Signs Vital signs: Vital Signs Temp 98 F 07/18/20 14:29 Pulse 80 07/18/20 14:29 Resp 24 07/18/20 14:29 BP 52/28 07/18/20 12:43 Pulse Ox 90 L 07/18/20 14:29 Intake & Output 07/17/20 07/18/20 07/18/20 18:59 06:59 18:59 Intake Total 2049 1290 550 Output Total 600 100 Balance 2049 690 450 Intake: Intake, IV Titration 950 700 Amount Sodium Chloride 0.9% 1, 900 700 000 ml @ 75 mls/hr IV . [id number] [facility] Rx#:[id number] cefTRIAXone 1 gm In 50 Sodium Chloride 0.9% 50 ml @ 100 mls/hr IVPB Q24HR [facility] Rx#:[id number] Oral 1100 590 240 Blood Product 310 Rc As-1 Unit 0 [id number] Rc As-1 Unit 310 [id number] Output: Urine 600 100 Uretheral (Schmidt) 100 Other: Voiding Method Indwelling Catheter Indwelling Catheter Indwelling Catheter - Constitutional General appearance: Present: mild distress - EENT ENT: Present: hard of hearing - Respiratory Respiratory: bilateral: diminished (Anterior and posterior lung mittal) - Cardiovascular Heart rate: 74 Rhythm: regular Heart sounds: normal: S1, S2 - Peripheral edema foot Peripheral Edema: bilateral: 2+ ankle Peripheral Edema: bilateral: 2+ leg Peripheral Edema: bilateral: 2+ - Peripheral pulses radial pulse Peripheral Pulses: bilateral: Normal - Gastrointestinal General gastrointestinal: Present: distended - Integumentary Integumentary: Present: pale - Allied health notes Allied health notes reviewed: nursing - Labs CBC & Chem 7: 07/18/20 10:20 07/18/20 04:41 Labs: Abnormal Lab Results - Last 24 Hours (Table) 07/17/20 07/17/20 07/17/20 Range/Units 05:51 07:56 13:21 RBC (4.30-5.90) m/uL Hgb (13.0-17.5) gm/dL Hct (39.0-53.0) % MCHC (31.0-37.0) g/dL RDW (11.5-15.5) % PT (9.0-12.0) sec INR (<1.2) Sodium (137-145) mmol/L Chloride (98-107) mmol/L Glucose (74-99) mg/dL POC Glucose (mg/dL) (75-99) mg/dL Calcium (8.4-10.2) mg/dL Iron 36 L (65-175) ug/dL TIBC 197 L (228-460) ug/dL Ferritin 358.2 H (22.0-322.0) ng/mL Total Protein (6.3-8.2) g/dL Albumin (3.5-5.0) g/dL Procalcitonin 0.15 H (0.02-0.09) ng/mL Crossmatch See Detail 07/18/20 07/18/20 07/18/20 Range/Units 04:41 04:41 10:20 RBC 2.59 L (4.30-5.90) m/uL Hgb 7.1 L (13.0-17.5) gm/dL Hct 22.8 L (39.0-53.0) % MCHC (31.0-37.0) g/dL RDW 19.6 H (11.5-15.5) % PT 15.2 H (9.0-12.0) sec INR 1.5 H (<1.2) Sodium 129 L (137-145) mmol/L Chloride 97 L (98-107) mmol/L Glucose 264 H (74-99) mg/dL POC Glucose (mg/dL) (75-99) mg/dL Calcium 8.0 L (8.4-10.2) mg/dL Iron (65-175) ug/dL TIBC (228-460) ug/dL Ferritin (22.0-322.0) ng/mL Total Protein 5.3 L (6.3-8.2) g/dL Albumin 2.6 L (3.5-5.0) g/dL Procalcitonin (0.02-0.09) ng/mL Crossmatch 07/18/20 07/18/20 Range/Units 10:20 11:35 RBC 2.31 L (4.30-5.90) m/uL Hgb 6.2 L* (13.0-17.5) gm/dL Hct 20.4 L (39.0-53.0) % MCHC 30.5 L (31.0-37.0) g/dL RDW 19.7 H (11.5-15.5) % PT (9.0-12.0) sec INR (<1.2) Sodium (137-145) mmol/L Chloride (98-107) mmol/L Glucose (74-99) mg/dL POC Glucose (mg/dL) 357 H (75-99) mg/dL Calcium (8.4-10.2) mg/dL Iron (65-175) ug/dL TIBC (228-460) ug/dL Ferritin (22.0-322.0) ng/mL Total Protein (6.3-8.2) g/dL Albumin (3.5-5.0) g/dL Procalcitonin (0.02-0.09) ng/mL Crossmatch Microbiology - Last 24 Hours (Table) 07/16/20 09:28 Urine Culture - Preliminary Urine,Catheterized Gram Neg Bacilli - Imaging and Cardiology Chest x-ray: report reviewed Assessment and Plan Assessment: Altered mental statusresolving with IV fluids and IV antibiotics Acute on chronic low hemoglobinB pleat hemoglobin this a.m. with 7.1 patient symptomatic one pack unit of red blood cells ordered to transfuse Dehydration Generalized weakness large abdominal aortic aneurysm measuring 11.6 cm with possible leakpatient was seen at [facility] decision was for no intervention. hyperlipidemia COPD BPH history of DVT/PE hypertension iron deficiency anemia muscle weakness generalized coronary artery disease gout chronic constipation impaired hearing chronic kidney failure stage III disease anasarca bedbound mixed anxiety and depression diabetes mellitus type 2 glaucoma osteoarthritis No code Plan: Altered mental statusmultifactorial possible dehydration with central nervous system depressantswe'll discontinue Haldol, use Ativan sparingly as needed, continue oxycodone extended release for pain and discomfort. Continue IV hydration and awaiting urine culture for culture and sensitivity A drop of hemoglobin from 9.2-7.1-Transfuse one unit of packed red blood cells Multiple comorbidities continue home medications Consultation with social work for transfer to [facility] facility [facility] Monitor vital signs and diagnostics labs Continue medical management Further recommendations and treatment plan based on patient's clinical condition Guarded prognosis Time with Patient: Greater than 30
--- NOTE | 2020-07-18 15:56 | P.PN ---
Progress Note - Text Progress Note Date: 07/18/20 (9144) Contacted by code team regarding patient's condition spoke with sound physician regarding patient's clinical impression. Patient was unresponsive with agonal respirations. Instructed sound physician to continue blood transfusion low likelihood of blood transfusion cause of unresponsiveness. Patient has known history of abdominal aotric aneurysm of 11.2 cm with and endoleak. Evaluated patient personally at bedside patient minimal responsive, instructed to continue blood transfusion. Had a lengthy conversation with family regarding patient's prognosis; patient and family agreed to minimal medical intervention awaiting him family to see patient. Will follow patient's condition closely
[2020-07-18 16:19] VITALS: PULSE 82; RESP 22; TEMP 98.6
[2020-07-18] MEDS ORDERED: ACETAMINOPHEN SUPPOSITORY 650 MG SUPP RECTAL PRN (16:37)
[2020-07-18] MEDS ORDERED: LORazepam 2 MG/ML INJ IV PRN (16:37)
[2020-07-18] MEDS ORDERED: ARTIFICIAL TEARS-HYPROMELLOSE DROPS 15 ML BTL BOTH EYES PRN (16:37)
[2020-07-18] MEDS ORDERED: DRY MOUTH SPRAY 44.3 SPRAY/44.3 ML SPRAY MUCOUS MEM PRN (16:37)
[2020-07-18] MEDS ORDERED: HYDROmorphone 0.5 MG/0.5 ML SYRINGE IVP PRN (16:37)
[2020-07-18] MEDS ORDERED: GLYCOPYRROLATE 0.2 MG/ML 2 ML VIAL IVP PRN (16:37)
[2020-07-18] MEDS ORDERED: HYDROCORTISONE 1% CREAM 30 GM TUBE TOPICAL PRN (16:37)
[2020-07-18] MEDS ORDERED: SCOPOLAMINE 1.5MG/72HR PATCH TRANSDERM SCH (17:00)
[2020-07-18] MEDS ORDERED: MORPHINE SULFATE (100 MG/2 ML) 100 MG in SODIUM CHLORIDE 0.9% 100 ML IV SCH (17:00)
--- NOTE | 2020-07-18 20:31 | P.DS ---
Providers Date of admission: 07/17/20 08:36 Expected date of discharge: 07/18/20 ( at 1656) Attending physician: Shar Piper Primary care physician: Shar Piper Hospital Course: 85-year-old male was admitted to the hospital with concerns of altered mental status, dehydration and continue generalized weakness. During hospital admission patient found to have urinary tract infection due to chronic cox catheter treated with broad-spectrum IV antibiotics. Dehydration was resolved with gentle hydration of normal saline of 75 ML's per hour. Throughout the hospital stay patients hemoglobin drop significantly from 9.2 to 6.2. Patient has significant medical history of abdominal aortic aneurysm of 11.2 cm with endoleak unable to operate due to patient's multiple comorbidities. Patient received one unit of packed red blood cells became unresponsive and hypotensive. Code team was called sound physician ordered 1 L of IV fluids, and to resume packed red blood cells. Evaluate patient 1230 today patient was minimal responsive, order to continue to transfuse remaining packed red blood cells an additional unit. Ordered ultrasound to assess abdominal Aortic aneurysm unable to determine due to patient's body habitus. Throughout the day patient continued decline became more hypotensive and unresponsive. Patient's blood pressure dropped to 52/28. Had lengthy discussion with family regarding patient's multiple comorbidities and outcomes.Patient was placed and comfort care, family was at bedside. Patient at 1656 in no acute signs of distress. Assessment: Intermittent episodes of altered mental status multifactorial possibly due to urinary tract infection present on admission, acute blood loss from hemoglobin of 9.2 to 6.2 urinary tract infection present upon admission due to chronic fully catheter treated with broad-spectrum antibiotics of IV Rocephin acute blood loss anemia possibly due to abdominal aortic aneurysm 11.2 cm with endoleak Dehydration resolved with IV hydration 75 ML's/hr COPD hyperlipidemia hypertension BPH gout coronary artery disease sacral pressure ulcer bedbound bilateral lower extremity edema Diabetes mellitus type II history of DVT's/PE Glaucoma osteoarthritis history of iron deficiency anemia no code Health Concerns: None noted Pertinent Studies: Serial chest x-rays consistent with COPD KUB x-ray with no acute processes ultrasound-Aortic iliac vascular unable to determine due to patient's body habitus Procedures: No procedures performed Plan - Discharge Summary Discharge Rx Participant: No New Discharge Prescriptions: Discontinued LORazepam [Ativan] 0.5 - 1 mg PO Q4H PRN PRN Reason: Anxiety Melatonin 3 mg PO HS@2100 Lactulose [Constulose] 10 gm PO BID@0900,2100 Sennosides/Docusate Sodium [Senna Plus 8.6-50 mg Softgel] 1 cap PO TID@0600,1400,2200 Amiodarone HCl [Pacerone] 200 mg PO DAILY@0900 Haloperidol Oral Soln [Haldol Oral Soln] 1 mg PO Q6H PRN PRN Reason: aggitation oxyCODONE HCL [OxyIR] 5 mg PO Q6H PRN PRN Reason: Pain oxyCODONE ER [OxyCONTIN] 20 mg PO BID@0900,2099 Carvedilol [Coreg] 3.125 mg PO BID@0900,2100 Follow up Appointment(s)/Referral(s): Shar Piper MD [Primary Care Provider] - 1-2 days Discharge Disposition: - Preliminary Cause of Preliminary Cause of : Acute blood loss/ hypotension-Resulting in cardiopul monary Arrest
--- NOTE | 2020-08-08 10:01 | CDI ---
Documentation Clarification Form Date: 08/08/2020 09:46:53 AM From: Liza Reina CCS, CCDS Admit Date: 07/17/2020 08:36:00 AM Patient Name: Maximino Gasca Visit Number: [id number] Discharge Date: 07/18/2020 06:57:00 PM ATTENTION: The Clinical Documentation Specialists (CDI) and [facility] Coding Staff appreciate your assistance in clarifying documentation. Please respond to the clarification below the line at the bottom and electronically sign. The CDI & [facility] Coding staff will review the response and follow-up if needed. Please note: Queries are made part of the Legal Health Record. If you have any questions, please contact the author of this message via ITS. Dr. Shar Piper: Your patient has the following abnormal lab values: Na 07/15: 131 Na 07/16: 132 Na 07/17: 132 Na 07/18: 129 Please clarify if there is an additional diagnosis and/or clinical significance related to this value. History/Risk Factors per the 07/16 H/P: Large AAA with possible endoleak, not a candidate for surgery; Iron Deficiency Anemia, DM II, CKD III, Hypertension, Hyperlipidemia, COPD, BPH, DVT & PE on Coumadin, CAD, Gout, Chronic Constipation, Impaired Hearing, Osteoarthritis, Glaucoma, Mixed Anxiety & Depression and is Bedbound. Clinical indicators: Presented to the ED on 07/15 with Altered mental status, Generalized Weakness & Dehydration. Admitted for same. Found to have a Catheter Related UTI. Home Meds: Lipitor, INH Pulmicort, Flomax, Melatonin, Insulin sq, Cozaar, Zoloft, Aldactone, Bisacodyl, Lasix, INH Duoneb, Singulair, Zofran, Protonix, Colace, Pepcid, Feosol, Coumadin, Fentanyl patch. Treatment: IV NaCl 0.9% 1,000mls @ 130 mls/hr q7H, IV NaCl 500 mls @ 999 mls/hr q31M, IV NaCl 1,000 mls @ 75 mls/hr q13H, IV Rocephin Is there an additional diagnosis and/or clinical significance related to the above lab result/information? [ X] Hyponatremia (Template Last Revised: April 2020) MTDD
== END 2020-07-18 18:57 | disposition expired | DRG 698 ==
LOC: EC 18:37 → 5NMEDONC 22:25 → OBSVTOIN 07-17 08:36
PROVIDERS: ADMIT Family Medicine; ATTEND Family Medicine
PROC: 30233N1 Transfusion of Nonautologous Red Blood Cells into Peripheral Vein, Percutaneous Approach (ICD-10-PCS; principal; 2020-07-18)
PROC: 5A09357 Assistance with Respiratory Ventilation, Less than 24 Consecutive Hours, Continuous Positive Airway Pressure (ICD-10-PCS; 2020-07-18)
DX: T83.511A Infection and inflammatory reaction due to indwelling urethral catheter, initial encounter (principal); G93.41 Metabolic encephalopathy; D62 Acute posthemorrhagic anemia; E87.1 Hypo-osmolality and hyponatremia; L89.322 Pressure ulcer of left buttock, stage 2; L89.611 Pressure ulcer of right heel, stage 1; D63.1 Anemia in chronic kidney disease; E11.22 Type 2 diabetes mellitus with diabetic chronic kidney disease; I95.9 Hypotension, unspecified; E11.622 Type 2 diabetes mellitus with other skin ulcer; E11.39 Type 2 diabetes mellitus with other diabetic ophthalmic complication; D50.9 Iron deficiency anemia, unspecified; I71.4 Abdominal aortic aneurysm, without rupture; N18.30 Chronic kidney disease, stage 3 unspecified; J44.9 Chronic obstructive pulmonary disease, unspecified; I46.9 Cardiac arrest, cause unspecified; Z79.4 Long term (current) use of insulin; N39.0 Urinary tract infection, site not specified; Z66 Do not resuscitate; Z51.5 Encounter for palliative care; Z20.822 Contact with and (suspected) exposure to COVID-19; L89.621 Pressure ulcer of left heel, stage 1; E78.5 Hyperlipidemia, unspecified; I12.9 Hypertensive chronic kidney disease with stage 1 through stage 4 chronic kidney disease, or unspecified chronic kidney disease; K21.9 Gastro-esophageal reflux disease without esophagitis; E86.0 Dehydration; R60.1 Generalized edema; H40.9 Unspecified glaucoma; H42 Glaucoma in diseases classified elsewhere; F41.8 Other specified anxiety disorders; I25.10 Atherosclerotic heart disease of native coronary artery without angina pectoris; K59.09 Other constipation; N40.0 Benign prostatic hyperplasia without lower urinary tract symptoms; J30.2 Other seasonal allergic rhinitis; H91.90 Unspecified hearing loss, unspecified ear; M10.9 Gout, unspecified; M19.90 Unspecified osteoarthritis, unspecified site; R26.2 Difficulty in walking, not elsewhere classified; E66.9 Obesity, unspecified; Z68.38 Body mass index [BMI] 38.0-38.9, adult; Z79.891 Long term (current) use of opiate analgesic; Z79.899 Other long term (current) drug therapy; Z86.14 Personal history of Methicillin resistant Staphylococcus aureus infection; Z86.718 Personal history of other venous thrombosis and embolism; Z86.711 Personal history of pulmonary embolism; Z90.49 Acquired absence of other specified parts of digestive tract; Z90.89 Acquired absence of other organs; Z87.19 Personal history of other diseases of the digestive system; Z98.49 Cataract extraction status, unspecified eye; Z95.828 Presence of other vascular implants and grafts; Z74.01 Bed confinement status; Z98.890 Other specified postprocedural states; Y84.6 Urinary catheterization as the cause of abnormal reaction of the patient, or of later complication, without mention of misadventure at the time of the procedure; Z80.41 Family history of malignant neoplasm of ovary; Z80.0 Family history of malignant neoplasm of digestive organs; Z83.1 Family history of other infectious and parasitic diseases; Z82.49 Family history of ischemic heart disease and other diseases of the circulatory system
CPT/HCPCS: 36415; 71045; 74018; 80053; 81001; 82150; 82272; 82607; 82728; 82746; 83540; 83550; 83690; 83735; 83880; 84145; 84484; 85025; 85027; 85045; 85610; 85730; 86850; 86900; 86901; 86920; 87077; 87086; 87186; 87635; 93005; 93979; 96360; 99285